=== PATIENT | female | born 1950 | race Caucasian/White ===

== ENCOUNTER → 2017-05-31 | Outpatient (CLI) | payer MEDICARE, SELFPAY | PROVIDERS: Visit Provider Nurse Practitioner | DX: C50.912 Malignant neoplasm of unspecified site of left female breast (principal); R07.89 Other chest pain | CPT/HCPCS: 73030; 78306; A9503 ==

== ENCOUNTER → 2017-06-07 | Outpatient (POV) | payer MEDICARE, SELFPAY | PROVIDERS: Family Provider Emergency Medicine; PCP Emergency Medicine; Visit Provider Nurse Practitioner | DX: C50.912 Malignant neoplasm of unspecified site of left female breast (principal); Z17.1 Estrogen receptor negative status [ER-] | CPT/HCPCS: 99214 ==

== ENCOUNTER → 2017-06-15 08:49 | Outpatient (CLI) | payer MEDICARE, SELFPAY ==
--- NOTE | 2017-06-15 09:19 | CT_ITS ---
CT chest w con HISTORY: Right sided chest and rib pain. History of breast cancer ITS.REASON: CHEST, RIB AND BREAST PAIN; ORDERING PHYSICIAN: Huyen Jones PATIENT AGE: 66 years TECHNIQUE: Helical acquisition obtained following the bolus administration of 75 mL of Isovue 370 . Axial, sagittal, and coronal reformatted images are generated and reviewed. Three-D reformatted images are also obtained of the ribs and thoracic spine. COMPARISON: 10/13/2015 FINDINGS: No mediastinal or hilar mass or adenopathy. Coronary artery calcifications are present. Normal heart size without evidence of pericardial effusion. No suspicious nodules, central obstructing lesions, infiltrates, or effusions are evident. No evidence of aortic aneurysm or central pulmonary embolus. No destructive bony lesions. There are degenerative changes in the thoracic spine with osteophytosis.. No rib fractures or other acute anomalies of the bony structures. There is some mild skin thickening of the left breast similar to the previous exam IMPRESSION: 1. Essentially negative CT chest with contrast. 2. No acute bony anomalies. No obvious rib fracture or destructive bony lesions. 3. Coronary artery calcifications suggesting coronary artery disease
[2017-06-15 09:23] LABS: Blood Urea Nitrogen 17 mg/dL (7-18); Creatinine,Serum 1.08 mg/dL (0.55-1.02); Estimated Glomerular Filt Rate 51 ml/min (>60); GFR (African American) > 60 ML/MIN (>60)
== END ==
PROVIDERS: Family Provider Emergency Medicine; PCP Family Medicine; Visit Provider Nurse Practitioner
DX: R07.9 Chest pain, unspecified (principal); N64.4 Mastodynia; C50.912 Malignant neoplasm of unspecified site of left female breast; R07.89 Other chest pain
CPT/HCPCS: 36415; 71260; 82565; 84520; Q9967

== ENCOUNTER → 2017-07-25 14:31 | Outpatient (CLI) | payer MEDICARE, SELFPAY ==
--- NOTE | 2017-07-25 14:39 | XR_ITS ---
XR chest 2V HISTORY: Cough and congestion ITS.REASON: BRONCHOPNEUMONIA ORDERING PHYSICIAN: Nola Fay PATIENT AGE: 66 years COMPARISON: 11 14 13 FINDINGS: The cardiomediastinal silhouette and pulmonary vascularity are within normal limits. The lungs are clear without infiltrates, suspicious nodules, or pleural effusions. Mediport catheter is been removed No acute bony abnormalities. IMPRESSION: Negative chest, no acute finding
== END ==
PROVIDERS: PCP Nurse Practitioner Family; Visit Provider Nurse Practitioner Family
DX: J18.0 Bronchopneumonia, unspecified organism (principal)
CPT/HCPCS: 71046

== ENCOUNTER → 2017-10-26 11:10 | Outpatient (CLI) | payer MEDICARE, SELFPAY ==
[2017-10-26 11:41] LABS: Basophils # 0.1 K/mm3 (0-0.2); Basophils % 0.7 % (0.1-2.0); Eosinophils # 0.1 K/mm3 (0.0-0.4); Eosinophils % 0.8 % (0.1-12.0); Hemoglobin 12.8 g/dL (12.2-16.2); Lymphocytes % 28.7 K/mm3 (10-50); Mean Corpuscular HGB Conc 33.6 g/dL (31.8-35.4); Mean Corpuscular Hemoglobin 28.9 pg (27.0-31.2); Mean Corpuscular Volume 86.1 fl (81-99); Monocytes # 0.4 K/mm3 (0.1-1.0); Monocytes % 5.4 % (1.7-9.3); Neutrophils # 4.4 K/mm3 (1.8-7.8); Neutrophils % 64.4 % (37.0-80.0); Platelet Count 363 K/mm3 (142-424); Red Blood Count 4.41 M/mm3 (4.20-5.40); Red Cell Distribution Width 12.9 % (11.5-17.5); White Blood Count 6.8 K/mm3 (4.8-10.8)
[2017-10-26 13:10] LABS: Anion Gap 12.9 mEq/L (5-15); Blood Urea Nitrogen 15 mg/dL (7-18); Carbon Dioxide 30 mmol/L (21.0-32.0); Chloride 98 mmol/L (98-107); Estimated Glomerular Filt Rate 62 ml/min (>60); GFR (African American) 76 ML/MIN (>60); Glucose 126 mg/dL (74-106); Potassium 4.9 mmoL/L (3.5-5.1); Sodium 136 mmol/L (136-145)
== END ==
PROVIDERS: Visit Provider Orthopaedic Surgery
DX: M79.645 Pain in left finger(s) (principal); Z01.818 Encounter for other preprocedural examination
CPT/HCPCS: 36415; 80048; 85025

== ENCOUNTER → 2017-11-13 09:22 | Outpatient (CLI) | payer MEDICARE, SELFPAY ==
--- NOTE | 2017-11-13 09:24 | MM_ITS ---
MM Dig screening mamm BI w/CAD CAD Screening ORDERING PHYSICIAN : Huyen Jones PATIENT AGE: 67 years GENDER: Female HISTORY no hormones no new complaints. Previous radiation & lumpectomy for malignant lesion. The left breast COMPARISON: Previous digital mammograms: October 2016, 2015, 2014. TECHNIQUE: Standard CC and MLO images were obtained. R2 CAD reviewed. FINDINGS: Generalized fatty replacement with Low-density breast bilaterally. No dominant mass nor suspicious calcifications in either breast. CAD computer review highlights no areas of significant concern. RIGHT BREAST:No findings of significant concern. Follow-up one year LEFT BREAST:Very subtle architectural changes at lateral left breast, towards upper-outer quadrant-likely reflecting surgery and treatment. No new findings of concern IMPRESSION: ---- Stable bilateral mammogram No new areas of significant concern Follow-up in one year BI-RADS Category: 1 Negative RECOMMENDED FOLLOW-UP: 1YR - 1 YEAR FOLLOW-UP (A letter has been sent to the patient regarding results of the study.)
[2017-11-13 10:17] LABS: Basophils % 0.3 % (0.1-2.0); Eosinophils # 0.1 K/mm3 (0.0-0.4); Eosinophils % 0.8 % (0.1-12.0); Hematocrit 38.5 % (37.0-47.0); Hemoglobin 12.1 g/dL (12.2-16.2); Lymphocytes # 1.5 K/mm3 (0.7-4.5); Lymphocytes % 21.5 K/mm3 (10-50); Mean Corpuscular HGB Conc 31.3 g/dL (31.8-35.4); Mean Corpuscular Hemoglobin 27.4 pg (27.0-31.2); Mean Corpuscular Volume 87.6 fl (81-99); Mean Platelet Volume 7.2 fl (7.4-10.4); Monocytes # 0.3 K/mm3 (0.1-1.0); Monocytes % 4.6 % (1.7-9.3); Neutrophils # 5.2 K/mm3 (1.8-7.8); Neutrophils % 72.7 % (37.0-80.0); Platelet Count 339 K/mm3 (142-424); Red Blood Count 4.39 M/mm3 (4.20-5.40); Red Cell Distribution Width 13.1 % (11.5-17.5); White Blood Count 7.2 K/mm3 (4.8-10.8)
[2017-11-13 10:41] LABS: Alanine Aminotransferase 22 U/L (12-78); Albumin Level 3.6 gm/dL (3.4-5.0); Albumin/Globulin Ratio 1.1 (1.1-1.8); Alkaline Phosphatase 79 U/L (46-116); Anion Gap 14.4 mEq/L (5-15); Aspartate Amino Transferase 17 U/L (15-37); Bilirubin,Total 0.4 mg/dL (0.2-1.0); Blood Urea Nitrogen 16 mg/dL (7-18); Calcium 9.2 mg/dL (8.5-10.1); Carbon Dioxide 26 mmol/L (21.0-32.0); Chloride 99 mmol/L (98-107); Estimated Glomerular Filt Rate 50 ml/min (>60); GFR (African American) 60 ML/MIN (>60); Globulin 3.3 gm/dl (1.3-3.2); Glucose 195 mg/dL (74-106); Potassium 4.4 mmoL/L (3.5-5.1); Sodium 135 mmol/L (136-145); Total Protein,Serum 6.9 gm/dL (6.4-8.2)
== END ==
PROVIDERS: Family Provider Emergency Medicine; PCP Nurse Practitioner Family; Visit Provider Nurse Practitioner
DX: Z12.31 Encounter for screening mammogram for malignant neoplasm of breast (principal); Z79.899 Other long term (current) drug therapy
CPT/HCPCS: 36415; 77067; 80053; 85025

== ENCOUNTER → 2017-11-22 11:22 | Outpatient (CLI) | payer MEDICARE, SELFPAY ==
[2017-11-22 13:43] LABS: Ferritin 72 ng/mL (8-388)
[2017-11-23 08:37] LABS: Iron 48 ug/dL (27-139); UIBC 284 ug/dL (118-369)
[2017-11-24 13:33] LABS: Iron Saturation 14 % (15-55)
== END ==
PROVIDERS: Visit Provider Nurse Practitioner
DX: C50.912 Malignant neoplasm of unspecified site of left female breast (principal); D64.9 Anemia, unspecified; R53.83 Other fatigue
CPT/HCPCS: 36415; 82728; 83550

== ENCOUNTER → 2017-12-10 09:00 | Outpatient (CLI) | payer MEDICARE, SELFPAY ==
[2017-12-12 14:12] LABS: Occult Blood,Stool Negative (Negative)
== END ==
PROVIDERS: Visit Provider Nurse Practitioner
DX: D50.9 Iron deficiency anemia, unspecified (principal); C50.912 Malignant neoplasm of unspecified site of left female breast
CPT/HCPCS: 82272; G0328

== ENCOUNTER → 2017-12-11 09:00 | Outpatient (CLI) | payer MEDICARE, SELFPAY ==
[2017-12-12 14:14] LABS: Occult Blood,Stool Negative (Negative)
== END ==
PROVIDERS: Visit Provider Nurse Practitioner
DX: D64.9 Anemia, unspecified (principal)
CPT/HCPCS: 82272; G0328

== ENCOUNTER → 2017-12-12 13:02 | Outpatient (CLI) | payer MEDICARE, SELFPAY ==
[2017-12-12 14:13] LABS: Occult Blood,Stool Negative (Negative)
== END ==
PROVIDERS: Visit Provider Nurse Practitioner
DX: D64.9 Anemia, unspecified (principal); D50.9 Iron deficiency anemia, unspecified
CPT/HCPCS: 82272; G0328

== ENCOUNTER 2018-02-05 20:01 | Observation (INO) ==
[2018-02-05 20:32] LABS: Basophils % 0.5 % (0.1-2.0); Eosinophils # 0.1 K/mm3 (0.0-0.4); Eosinophils % 1.5 % (0.1-12.0); Hematocrit 38.2 % (37.0-47.0); Hemoglobin 12.7 g/dL (12.2-16.2); Lymphocytes # 2.4 K/mm3 (0.7-4.5); Lymphocytes % 36.9 K/mm3 (10-50); Mean Corpuscular HGB Conc 33.3 g/dL (31.8-35.4); Mean Corpuscular Hemoglobin 28.1 pg (27.0-31.2); Mean Corpuscular Volume 84.5 fl (81-99); Mean Platelet Volume 6.9 fl (7.4-10.4); Monocytes # 0.4 K/mm3 (0.1-1.0); Monocytes % 6.2 % (1.7-9.3); Neutrophils # 3.5 K/mm3 (1.8-7.8); Platelet Count 354 K/mm3 (142-424); Red Blood Count 4.51 M/mm3 (4.20-5.40); White Blood Count 6.4 K/mm3 (4.8-10.8)
[2018-02-05 20:55] LABS: Blood Urea Nitrogen 14 mg/dL (7-18); Calcium 9.7 mg/dL (8.5-10.1); Carbon Dioxide 28 mmol/L (21.0-32.0); Chloride 100 mmol/L (98-107); Glucose 211 mg/dL (74-106); Sodium 137 mmol/L (136-145)
--- NOTE | 2018-02-05 21:47 | Emergency Department Note ---
ED Disposition Clinical Impression: Chest pain Qualifiers: Chest pain type: precordial pain Qualified Code(s): R07.2 - Precordial pain Diabetes Qualifiers: Diabetes mellitus type: type 1 Diabetes mellitus complication status: with unspecified complications Qualified Code(s): E10.8 - Type 1 diabetes mellitus with unspecified complications Disposition: Admitted as Observation Condition on Discharge: Good - Critical Care Critical Care Time: No Attestation: On 02/05/18, the high probability of a clinically significant, sudden or life threatening deterioration of the following system(s) required my full and direct attention, intervention and personal management. The time I documented below is in addition to time spent performing reported procedures but includes the following listed in this critical care notation. Medical Decision Making - Medical Records Medical records reviewed: Yes: I reviewed the patient's medical records. - Mitch Inquiry Pt receiving controlled substance: No Vital Signs: 02/05/18 20:01 02/05/18 20:42 02/05/18 21:18 Temperature 98.5 F 98.5 F 98.3 F Temperature Source Oral Oral Oral Pulse Rate [Right Brachial] 89 87 82 Respiratory Rate 16 18 18 Blood Pressure [Right Arm] 163/91 157/76 151/83 Blood Pressure Mean [Right Arm] 115 103 105 Blood Pressure Source [Right Arm] Automatic Cuff Automatic Cuff Blood Pressure Position [Right Arm] Sitting Sitting 02 Sat by Pulse Oximetry 99 98 98 Oxygen Delivery Method Room Air Room Air 02/05/18 21:55 02/05/18 22:27 Temperature Temperature Source Pulse Rate [Right Brachial] 91 H 75 Respiratory Rate 16 16 Blood Pressure [Right Arm] 154/75 180/75 Blood Pressure Mean [Right Arm] 101 110 Blood Pressure Source [Right Arm] Automatic Cuff Automatic Cuff Blood Pressure Position [Right Arm] Sitting Sitting 02 Sat by Pulse Oximetry 95 98 Oxygen Delivery Method Room Air Room Air - Lab Data Lab results reviewed: Yes: I reviewed the patient's lab results. Lab Results 02/05/18 20:20: WBC 6.4, RBC 4.51, Hgb 12.7, Hct 38.2, MCV 84.5, MCH 28.1, MCHC 33.3, RDW 13.0, Plt Count 354, MPV 6.9 L, Neut % (Auto) 55.0, Lymph % (Auto) 36.9, [place] % (Auto) 6.2, Eos % (Auto) 1.5, Baso % (Auto) 0.5, Neut # (Auto) 3.5 , Lymph # (Auto) 2.4, [place] # (Auto) 0.4, Eos # (Auto) 0.1, Baso # (Auto) 0.0 02/05/18 20:20: Sodium 137, Potassium 4.0, Chloride 100, Carbon Dioxide 28, Anion Gap 13.0, BUN 14, Creatinine 1.23 H, Estimated Creat Clear 62, Estimated GFR 44 L, Est GFR ( Amer) 53 L, Glucose 211 H, Calcium 9.7, Troponin I < 0.02 02/05/18 20:20: Amylase 49, Lipase 154 Result diagrams: 02/05/18 20:20 02/05/18 20:20 Orders (Tests/Meds): ED MEDICATIONS Generic Name Dose Route Start Last Admin Trade Name Freq PRN Reason Stop Dose Admin Nitroglycerin 0.4 mg 02/05/18 21:43 02/05/18 21:43 Nitrostat 0.4mg Sl Tablet SL 03/07/18 21:42 1 tab Q5MINP PRN Administration Chest Pain Discontinued Medications Generic Name Dose Route Start Last Admin Trade Name Freq PRN Reason Stop Dose Admin Aspirin 325 mg 02/05/18 20:19 02/05/18 20:23 Aspirin 325mg Tablet PO 02/05/18 20:20 325 mg ONCE ONE Administration Morphine Sulfate 4 mg 02/05/18 21:56 02/05/18 21:59 Morphine 4mg/Ml Syringe IV 02/05/18 21:57 4 mg ONCE ONE Administration Nitroglycerin 1 gm 02/05/18 21:56 02/05/18 21:59 Nitroglycerin 1 Inch Oint Udp TD 02/05/18 21:57 1 gm ONCE ONE Administration Ondansetron HCl 4 mg 02/05/18 21:56 02/05/18 22:00 Zofran 4mg/2ml Vial IV 02/05/18 21:57 4 mg ONCE ONE Administration ORDERS Category Date Time Status Troponin I Timed Lab 02/05/18 23:00 Ordered - Radiology Data #1 Image(s): Chest Image Reviewed: Yes I reviewed the patient's radiology image Preliminary Findings: Normal/NAD - ECG Data Tracing #1 I reviewed this ECG and interpreted as documented below: Normal Sinus Rhythm: Yes Ischemic changes: non-specific ST-T wave changes Tracing #2 Normal Sinus Rhythm: Yes Ischemic changes: non-specific ST-T wave changes - Physician Consults Physician Consulted: ketty Reason -: Admission Chest Pain HPI - General Chief Complaint: Chest Pain Stated Complaint: CHEST PAIN Time Seen by Provider: 02/05/18 20:15 Mode of Arrival: Ambulatory Limitations: No Limitations Description of Symptoms (Recalled from ER Triage Doc. by RN): CHEST PAIN THAT STARTED OFF AND ON FOR A WEEK PROGESSIVELY WORSENING TODAY - History of Present Illness HPI narrative: pt with episode of chest pain with rad to back and upper ext this pm about 1530 - has persisted - no known ht disease MD complaint: chest pain indicative of cardiac Onset (ago): hour(s) Duration: intermittent Activity at onset: light activity Pain location: substernal Severity: moderate Quality: tightness Pain radiation: RUE, LUE, back Risk Factors for CAD: Hypertension, Family Hx of CAD, Diabetes Treatments prior to or on arrival for Cardiac Chest Pain: none - WILFRIDO Score Non-Stemi Age of patient: 65 yrs or more Number of risk factors for CAD: Presence of 3 or more Prior coronary artery stenosis(seen in coronary angiography): Less than 50% ST-Segment deviation on ECG (more than 1 min): Absent Prior aspirin intake: No ASA in the last 7 days Severe anginal chest pain: Two or more episodes in last 24 hours Elevated cardiac markers(CK-MB or troponin): Absent Non-Stemi Risk Score: 3 - Related Data Home Medications Medication Instructions Recorded Confirmed escitalopram 20 mg tablet 10 mg PO DAILY 06/21/17 02/05/18 etodolac 300 mg capsule 300 mg PO BID 06/21/17 02/05/18 insulin human U-100 NPH-regulr 25 unit SUB-Q DAILY 06/21/17 02/05/18 70-30 mix 100 unit/mL subcutaneous susp omeprazole 20 mg capsule,delayed 20 mg PO DAILY 06/21/17 02/05/18 release sitagliptin 50 mg-metformin 1,000 1 tab PO BID 06/21/17 02/05/18 mg tablet tizanidine 4 mg capsule 4 mg PO Q8H 06/21/17 02/05/18 amlodipine 5 mg-benazepril 20 mg 1 cap PO DAILY 90 Days cap 11/22/17 02/05/18 capsule aspirin 81 mg tablet,delayed 81 mg PO DAILY 11/22/17 02/05/18 release ezetimibe 10 mg tablet 10 mg PO DAILY 90 Days tab 11/22/17 02/05/18 fluticasone 50 mcg/actuation nasal 1 puff INTRANASAL DAILY 60 Days 11/22/17 spray,suspension rosuvastatin 10 mg tablet 10 mg PO DAILY 11/22/17 02/05/18 tizanidine 4 mg tablet 4 mg PO Q8H 30 Days tab 11/22/17 02/05/18 Milnacipran HCl [Savella] 50 mg PO BID 02/05/18 02/05/18 Allergies Allergy/AdvReac Type Severity Reaction Status Date / Time Penicillins Allergy Intermediate I-RASH Verified 12/27/17 09:58 [facility] History I have reviewed the patient's past medical history: Yes Medical History: Reports:: Anxiety, Cancer (left breast), Diabetes Mellitus Type 2, Hypertension, Osteoporosis Denies:: MRSA Other Medical History: Reports: Chemotherapy, Fibromyalgia, Osteoporosis, Radiation Therapy Laterality Cases: Left: Breast Biopsy, Lumpectomy Other Surgeries: Yes: Cancer Surgery, Colonoscopy, Hysterectomy-Total, Tubal Ligation Amputation: No Fractures: No Comment: Finger release (x1 LT hand & x2 RT hand) - Social History Educational Level: Completed Grade School Smoking Status: Never smoker Alcohol Intake: never Substance Use Type: denies use Occupational Status: retired Housing: house Household Members: spouse - Psychiatric History Expresses thoughts of harming self/others: None Suicide Plan Description: No Plan Pschychiatric History:: Reports:: Anxiety Family Hx:: Heart Attack, Hypertension, Cancer, Diabetes, Stroke ROS Obtained: Yes All systems reviewed & no additional complaints - Constitutional Constitutional: Denies fever(s) - Eyes Eyes: Denies change in vision - ENT Ears, Nose, Mouth, and Throat: Denies sore throat - Cardiovascular Cardiovascular: Reports chest pain, Denies dyspnea - Respiratory Respiratory: No cough - Gastrointestinal Gastrointestingal: Denies: abdominal pain - Genitourinary Female Genitourinary: Denies hematuria - Musculoskeletal Musculoskeletal: Denies joint pain, Denies joint swelling - Integumentary/Breasts Skin/Breast: Denies rash - Neurologic Neurologic: Denies seizure-like activity Physical Exam - General General appearance: alert, obese - Head Head exam: normocephalic - Eye Eye exam: Present: PERRL, EOMI - ENT ENT exam: Present: mucous membranes moist - Neck Neck exam: Present: trachea midline - Respiratory Respiratory exam: Present: normal lung sounds bilaterally. Absent: respiratory distress - Cardiovascular Cardiovascular exam: Present: regular rate, systolic murmur, +S4 - Abdominal Exam Abdominal exam: Present: soft - Extremities Exam Extremities exam: Absent: calf tenderness - Neurological Exam Neurological exam: Present: alert, oriented X3, CN II-XII intact - Psychiatric Psychiatric exam: Present: normal affect - Skin Skin exam: Absent: rash
[2018-02-05 22:09] LABS: Amylase 49 U/L (25-125); Lipase 154 u/L (73-393)
[2018-02-06 06:00] LABS: Basophils % 0.5 % (0.1-2.0); Eosinophils # 0.1 K/mm3 (0.0-0.4); Hematocrit 37.2 % (37.0-47.0); Hemoglobin 12.6 g/dL (12.2-16.2); Lymphocytes # 3.2 K/mm3 (0.7-4.5); Lymphocytes % 38.1 K/mm3 (10-50); Mean Corpuscular HGB Conc 33.8 g/dL (31.8-35.4); Mean Corpuscular Hemoglobin 29.2 pg (27.0-31.2); Mean Corpuscular Volume 86.4 fl (81-99); Monocytes # 0.5 K/mm3 (0.1-1.0); Monocytes % 5.9 % (1.7-9.3); Neutrophils # 4.5 K/mm3 (1.8-7.8); Neutrophils % 54.5 % (37.0-80.0); Platelet Count 357 K/mm3 (142-424); Red Blood Count 4.31 M/mm3 (4.20-5.40); Red Cell Distribution Width 13.2 % (11.5-17.5); White Blood Count 8.3 K/mm3 (4.8-10.8)
[2018-02-06 06:13] LABS: Anion Gap 14.1 mEq/L (5-15); Calcium 9.4 mg/dL (8.5-10.1); Potassium 4.1 mmoL/L (3.5-5.1)
--- NOTE | 2018-02-06 07:02 | History & Physical Report ---
*Admission Date: 02/05/18 *Chief complaint: Chest heaviness *History of present illness: 67-year-old female with hypertension, diabetes, hyperlipidemia presented to the emergency department yesterday evening after onset of chest heaviness radiating into the arms with associated nausea and fatigue that started at around 3 PM. This was approximately 3 hours after the patient's last meal. When symptoms were not resolving on their own after a few hours patient ultimately presented to the emergency department. Sublingual nitroglycerin did not relieve the patient's chest heaviness but topical nitroglycerin eased some of the chest heaviness. Patient states she continued to have chest heaviness in the emergency department as well as throughout the night and even currently during interview this morning. She also continues to have generalized weakness. She denies shortness of breath or diaphoresis during her episode of chest heaviness. Patient reports a one-week history of recurrent bouts of nausea and heartburn that she thought was getting better. She has not had any previous cardiac workup. [facility] History I have reviewed the patient's past medical history: Yes Medical History: Reports:: Anxiety, Cancer (Breast CA), Diabetes Mellitus Type 2 , Hyperlipidemia, Hypertension, Osteoporosis Denies:: MRSA Other Medical History: Reports: Chemotherapy, Fibromyalgia, Osteoporosis, Radiation Therapy Laterality Cases: Left: Breast Biopsy, Lumpectomy Other Surgeries: Yes: Cancer Surgery, Colonoscopy, Hysterectomy-Total, Tubal Ligation Amputation: No Fractures: No - *Social History Educational Level: Completed College Smoking Status: Never smoker Alcohol Intake: never Substance Use Type: denies use Occupational Status: retired Housing: house Household Members: spouse - Psychiatric History Expresses thoughts of harming self/others: None Suicide Plan Description: No Plan Pschychiatric History:: Reports:: Anxiety *Family Hx:: Cancer, Coronary Artery Disease, Diabetes, Heart Attack, Hypertension, Stroke Review of Systems - Review of Systems Review of systems:: pertinent systems reviewed and negative unless documented below - Constitutional Reports fatigue, Denies body ache(s), Denies chills - *Cardiovascular Reports chest pain, Denies chest pain with activity, Denies excessive sweating, Denies shortness of breath, Denies irregular heart rhythm - *Respiratory Denies cough, Denies shortness of breath - *Gastrointestinal Reports heartburn, Reports nausea - *Neurologic Denies seizure-like activity Meds Home Medications Medication Instructions Recorded Confirmed Type escitalopram 20 mg tablet 10 mg PO DAILY 06/21/17 02/05/18 History etodolac 300 mg capsule 300 mg PO BID 06/21/17 02/05/18 History insulin human U-100 NPH-regulr 30 unit SUB-Q DAILY 06/21/17 02/05/18 History 70-30 mix 100 unit/mL subcutaneous susp omeprazole 20 mg capsule,delayed 20 mg PO DAILY 06/21/17 02/05/18 History release sitagliptin 50 mg-metformin 1,000 1 tab PO BID 06/21/17 02/05/18 History mg tablet tizanidine 4 mg capsule 4 mg PO Q8H 06/21/17 02/05/18 History amlodipine 5 mg-benazepril 20 mg 1 cap PO DAILY 90 Days cap 11/22/17 02/05/18 History capsule aspirin 81 mg tablet,delayed 81 mg PO DAILY 11/22/17 02/05/18 History release ezetimibe 10 mg tablet 10 mg PO DAILY 90 Days tab 11/22/17 02/05/18 History fluticasone 50 mcg/actuation nasal 1 puff INTRANASAL DAILY 60 Days 11/22/17 History spray,suspension tizanidine 4 mg tablet 4 mg PO Q8H 30 Days tab 11/22/17 02/05/18 History Rahat Cit/D3/K/Mag Ox/Stron/Bor 2 each PO DAILY 02/05/18 02/05/18 History [Prosteon Tablet] Milnacipran HCl [Savella] 50 mg PO BID 02/05/18 02/05/18 History Allergies Allergy/AdvReac Type Severity Reaction Status Date / Time Penicillins Allergy Intermediate I-RASH Verified 12/27/17 09:58 Exam Vital signs and Labs for Last 24 Hours: Temp Pulse Resp BP Pulse Ox 98.1 F 88 16 126/59 96 02/05/18 23:30 02/06/18 04:00 02/05/18 23:30 02/06/18 04:00 02/06/18 04:01 Laboratory Results - last 24 hr 02/05/18 20:20: WBC 6.4, RBC 4.51, Hgb 12.7, Hct 38.2, MCV 84.5, MCH 28.1, MCHC 33.3, RDW 13.0, Plt Count 354, MPV 6.9 L, Neut % (Auto) 55.0, Lymph % (Auto) 36.9, [place] % (Auto) 6.2, Eos % (Auto) 1.5, Baso % (Auto) 0.5, Neut # (Auto) 3.5 , Lymph # (Auto) 2.4, [place] # (Auto) 0.4, Eos # (Auto) 0.1, Baso # (Auto) 0.0 02/05/18 20:20: Sodium 137, Potassium 4.0, Chloride 100, Carbon Dioxide 28, Anion Gap 13.0, BUN 14, Creatinine 1.23 H, Estimated Creat Clear 62, Estimated GFR 44 L, Est GFR ( Amer) 53 L, Glucose 211 H, Calcium 9.7, Troponin I < 0.02 02/05/18 20:20: Amylase 49, Lipase 154 02/05/18 22:56: Troponin I < 0.02 02/06/18 02:15: Troponin I < 0.02 02/06/18 05:15: Troponin I < 0.02 02/06/18 05:15: WBC 8.3 D, RBC 4.31, Hgb 12.6, Hct 37.2, MCV 86.4, MCH 29.2, MCHC 33.8, RDW 13.2, Plt Count 357, MPV 7.0 L, Neut % (Auto) 54.5, Lymph % (Auto ) 38.1, [place] % (Auto) 5.9, Eos % (Auto) 1.0, Baso % (Auto) 0.5, Neut # (Auto) 4.5, Lymph # (Auto) 3.2, [place] # (Auto) 0.5, Eos # (Auto) 0.1, Baso # (Auto) 0.0 02/06/18 05:15: Sodium 141, Potassium 4.1, Chloride 103, Carbon Dioxide 28, Anion Gap 14.1, BUN 13, Creatinine 1.21 H, Estimated Creat Clear 52, Estimated GFR 44 L, Est GFR ( Amer) 54 L, Glucose 67 L D, Calcium 9.4, Magnesium 1.9, Triglycerides 150, Cholesterol 183, LDL Cholesterol 91, VLDL Cholesterol 30 , HDL Cholesterol 62, Cholesterol/HDL Ratio 3.0 02/06/18 05:25: POC Glucose 66 L I & O for Last 24 hours: Intake & Output 02/03/18 02/04/18 02/05/18 02/06/18 11:59 11:59 11:59 11:59 Intake Total 444 / 444 Balance 444 / 444 Weight 161 lb 3 oz Narrative: Patient is awake and alert. She is oriented to person place and time. Oropharynx is moist neck is without lymphadenopathy. Lungs are clear to auscultation. Heart has a regular rate and rhythm. Abdomen is soft and nontender with active bowel sounds. Patient has active range of motion in all extremities. Neurologically there is no motor or sensory deficit. Skin is without rashes Assessment and Plan (1) Hypertension Current visit: Yes Status: Acute Category: Medical Code(s): I10 - Essential (primary) hypertension (2) Hypercholesterolemia Current visit: Yes Status: Acute Category: Medical Code(s): E78.00 - Pure hypercholesterolemia, unspecified (3) Chest pain Current visit: Yes Status: Acute Qualifiers: Chest pain type: precordial pain Qualified Code(s): R07.2 - Precordial pain Category: Medical Code(s): R07.9 - Chest pain, unspecified (4) Diabetes Current visit: Yes Status: Acute Qualifiers: Diabetes mellitus type: type 1 Diabetes mellitus complication status: with unspecified complications Qualified Code(s): E10.8 - Type 1 diabetes mellitus with unspecified complications Category: Medical Code(s): E11.9 - Type 2 diabetes mellitus without complications - Assessment and plan all Dx Assessment and Plan for all problems:: Patient has chest pain consistent with angina along with multiple cardiac risk factors. Cardiology has been consulted for recommendations and intervention.
--- NOTE | 2018-02-06 07:41 | Pharmacy Consult Notes ---
[facility] Pharmacy VTE Monitoring - Patient Demographics Admission date: 02/05/18 Report Date: 02/06/18 Time: 07:40 Allergies/Adverse Reactions: Patient Allergies Penicillins Allergy (Intermediate, Verified 12/27/17 09:58) I-RASH Height: 1.63 m Weight: 73.113 kg Patient Problems: Current Active Problems Chest pain (Acute) Diabetes (Acute) Hypertension (Acute) Hypercholesterolemia (Acute) - VTE Risk Labs: VTE Related Lab Results Hgb 12.6 g/dL (12.2-16.2) 02/06/18 05:15 Hct 37.2 % (37.0-47.0) 02/06/18 05:15 Plt Count 357 K/mm3 (142-424) 02/06/18 05:15 BUN 13 mg/dL (7-18) 02/06/18 05:15 Creatinine 1.21 mg/dL (0.55-1.02) H 02/06/18 05:15 Estimated Creat Clear 52 mL/min (0-300) 02/06/18 05:15 Was VTE Risk Assessment Performed: Yes VTE Score: 6 VTE Risk Level: Moderate Risk - Prophylaxis VTE Prophylaxis Ordered?: Yes Types of VTE Prophylaxis: TEDS Knee High Location of Applied Device: Bilateral Lower Extremeties - VTE Diagnosis Confirmed Treatment or plan recommended: Continue Current Treatment
--- NOTE | 2018-02-06 09:55 | Consult Report ---
History of Present Illness Consult date: 02/06/18 Requesting physician: Maxx Matos Consult reason: chest pain Chief complaint: chest pain, SOA Additional Medical History:: 1. History of breast cancer A. Status post left breast lumpectomy with lymph node removal, s/p chemotherapy X 4 treatments and radiation therapy X 15 treatments approximately 2013 2. Diabetes mellitus, treated for about 20 years with most recent hemoglobin A1c of 6.8 3. Hypertension 4. Hyperlipidemia History of present illness: 67-year-old female with hypertension, diabetes, hyperlipidemia presented to the emergency department yesterday evening after onset of chest heaviness radiating into the arms with associated nausea and fatigue that started at around 3 PM. This was approximately 3 hours after the patient's last meal. When symptoms were not resolving on their own after a few hours patient ultimately presented to the emergency department. Sublingual nitroglycerin did not relieve the patient's chest heaviness but topical nitroglycerin eased some of the chest heaviness. Patient states she continued to have chest heaviness in the emergency department as well as throughout the night and even currently during interview this morning. She also continues to have generalized weakness. She denies shortness of breath or diaphoresis during her episode of chest heaviness. Patient reports a one-week history of recurrent bouts of nausea and heartburn that she thought was getting better. She has not had any previous cardiac workup. The above per Dr. Matos At the time of my exam the patient denies any chest squeezing or tightness but does note an occasional pain in the substernal area which is mildly reproducible with palpation. She also relates some back discomfort that is worse with breathing. EKG shows sinus rhythm without acute ST segment changes. Troponins normal 3. [facility] History Medical History: Reports:: Anxiety, Cancer (Breast CA), Diabetes Mellitus Type 2, Hyperlipidemia, Hypertension, Osteoporosis Denies:: MRSA Other Medical History: Reports: Chemotherapy, Fibromyalgia, Osteoporosis, Radiation Therapy Laterality Cases: Left: Breast Biopsy, Lumpectomy Other Surgeries: Yes: Cancer Surgery, Colonoscopy, Hysterectomy-Total, Tubal Ligation Amputation: No Fractures: No - *Social History Educational Level: Completed College Smoking Status: Never smoker Alcohol Intake: never Substance Use Type: denies use Occupational Status: retired Housing: house Household Members: spouse - Psychiatric History Expresses thoughts of harming self/others: None Suicide Plan Description: No Plan Pschychiatric History:: Reports:: Anxiety *Family Hx:: Cancer, Coronary Artery Disease, Diabetes, Heart Attack, Hypertension, Stroke Meds Home Medications Medication Instructions Recorded Confirmed Type escitalopram 20 mg tablet 20 mg PO DAILY 06/21/17 02/06/18 History etodolac 300 mg capsule 300 mg PO BID 06/21/17 02/05/18 History insulin human U-100 NPH-regulr 30 unit SUB-Q DAILY 06/21/17 02/05/18 History 70-30 mix 100 unit/mL subcutaneous susp omeprazole 20 mg capsule,delayed 20 mg PO DAILY 06/21/17 02/05/18 History release sitagliptin 50 mg-metformin 1,000 1 tab PO BID 06/21/17 02/05/18 History mg tablet tizanidine 4 mg capsule 4 mg PO TID 06/21/17 02/06/18 History amlodipine 5 mg-benazepril 20 mg 1 cap PO DAILY 90 Days cap 11/22/17 02/05/18 History capsule aspirin 81 mg tablet,delayed 81 mg PO DAILY 11/22/17 02/05/18 History release ezetimibe 10 mg tablet 10 mg PO DAILY 90 Days tab 11/22/17 02/05/18 History fluticasone 50 mcg/actuation nasal 1 puff INTRANASAL DAILY 60 Days 11/22/17 02/05/18 History spray,suspension tizanidine 4 mg tablet 4 mg PO Q8H 30 Days tab 11/22/17 02/05/18 History Rahat Cit/D3/K/Mag Ox/Stron/Bor 2 each PO DAILY 02/05/18 02/05/18 History [Prosteon Tablet] Milnacipran HCl [Savella] 50 mg PO BID 02/05/18 02/05/18 History Allergies Allergy/AdvReac Type Severity Reaction Status Date / Time Penicillins Allergy Intermediate I-RASH Verified 12/27/17 09:58 Review of Systems - *Cardiovascular Reports chest pain, Reports shortness of breath with activity - *Respiratory Reports shortness of breath with activity - *Gastrointestinal Denies abdominal pain - *Genitourinary Denies blood in urine - *Musculoskeletal Denies joint pain - *Neurologic Denies seizure-like activity Exam Vital signs and Labs for Last 24 Hours: Temp Pulse Resp BP Pulse Ox 98.1 F 85 16 126/59 97 02/05/18 23:30 02/06/18 08:00 02/05/18 23:30 02/06/18 04:00 02/06/18 08:00 Laboratory Results - last 24 hr 02/05/18 20:20: WBC 6.4, RBC 4.51, Hgb 12.7, Hct 38.2, MCV 84.5, MCH 28.1, MCHC 33.3, RDW 13.0, Plt Count 354, MPV 6.9 L, Neut % (Auto) 55.0, Lymph % (Auto) 36.9, [place] % (Auto) 6.2, Eos % (Auto) 1.5, Baso % (Auto) 0.5, Neut # (Auto) 3.5, Lymph # (Auto) 2.4, [place] # (Auto) 0.4, Eos # (Auto) 0.1, Baso # (Auto) 0.0 02/05/18 20:20: Sodium 137, Potassium 4.0, Chloride 100, Carbon Dioxide 28, Anion Gap 13.0, BUN 14, Creatinine 1.23 H, Estimated Creat Clear 62, Estimated GFR 44 L, Est GFR ( Amer) 53 L, Glucose 211 H, Calcium 9.7, Troponin I < 0.02 02/05/18 20:20: Amylase 49, Lipase 154 02/05/18 22:56: Troponin I < 0.02 02/06/18 02:15: Troponin I < 0.02 02/06/18 05:15: Troponin I < 0.02 02/06/18 05:15: WBC 8.3 D, RBC 4.31, Hgb 12.6, Hct 37.2, MCV 86.4, MCH 29.2, MCHC 33.8, RDW 13.2, Plt Count 357, MPV 7.0 L, Neut % (Auto) 54.5, Lymph % (Auto) 38.1, [place] % (Auto) 5.9, Eos % (Auto) 1.0, Baso % (Auto) 0.5, Neut # (Auto) 4.5, Lymph # (Auto) 3.2, [place] # (Auto) 0.5, Eos # (Auto) 0.1, Baso # (Auto) 0.0 02/06/18 05:15: Sodium 141, Potassium 4.1, Chloride 103, Carbon Dioxide 28, Anion Gap 14.1, BUN 13, Creatinine 1.21 H, Estimated Creat Clear 52, Estimated GFR 44 L, Est GFR ( Amer) 54 L, Glucose 67 L D, Calcium 9.4, Magnesium 1.9, Triglycerides 150, Cholesterol 183, LDL Cholesterol 91, VLDL Cholesterol 30, HDL Cholesterol 62, Cholesterol/HDL Ratio 3.0 02/06/18 05:25: POC Glucose 66 L I & O for Last 24 hours: Intake & Output 02/03/18 02/04/18 02/05/18 02/06/18 11:59 11:59 11:59 11:59 Intake Total 444 / 444 Balance 444 / 444 Weight 161 lb 3 oz - *Routine Neck Exam Absent: JVD, carotid bruit - *Routine Respiratory Exam Present: CTA bilaterally. Absent: rhonchi, wheezes - *Routine Cardiovascular Exam Present: RRR. Absent: murmur, gallop, rubs - *Routine Abdominal Exam Absent: tenderness - *Routine Extremities Exam Absent: edema - *Routine Neurological Exam Present: alert, oriented X3, moving all extremities Assessment and Plan (1) Chest pain Current visit: Yes Status: Acute Qualifiers: Chest pain type: precordial pain Qualified Code(s): R07.2 - Precordial pain Category: Medical Code(s): R07.9 - Chest pain, unspecified (2) Hypertension Current visit: Yes Status: Acute Category: Medical Code(s): I10 - Essential (primary) hypertension (3) Hypercholesterolemia Current visit: Yes Status: Acute Category: Medical Code(s): E78.00 - Pure hypercholesterolemia, unspecified (4) Diabetes Current visit: Yes Status: Acute Qualifiers: Diabetes mellitus type: type 1 Diabetes mellitus complication status: with unspecified complications Qualified Code(s): E10.8 - Type 1 diabetes mellitus with unspecified complications Category: Medical Code(s): E11.9 - Type 2 diabetes mellitus without complications - Assessment and plan all Dx Assessment and Plan for all problems:: Unstable angina pectoris in a diabetic patient. Patient has a WILFRIDO score of 4 (recurrent chest pain/shortness of breath, daily aspirin use, cardiac risk factors, age). Recommend left heart catheterization for evaluation and further treatment pending those results.
--- NOTE | 2018-02-06 12:56 | Discharge Summary ---
General - General Admission date:: 02/05/18 Discharge date: 02/06/18 HPI HPI: 67-year-old female with hypertension, diabetes, hyperlipidemia presented to the emergency department yesterday evening after onset of chest heaviness radiating into the arms with associated nausea and fatigue that started at around 3 PM. This was approximately 3 hours after the patient's last meal. When symptoms were not resolving on their own after a few hours patient ultimately presented to the emergency department. Sublingual nitroglycerin did not relieve the patient's chest heaviness but topical nitroglycerin eased some of the chest heaviness. Patient states she continued to have chest heaviness in the emergency department as well as throughout the night and even currently during interview this morning. She also continues to have generalized weakness. She denies shortness of breath or diaphoresis during her episode of chest heaviness. Patient reports a one-week history of recurrent bouts of nausea and heartburn that she thought was getting better. She has not had any previous cardiac workup. Hospital Course Hospital Course: Patient was admitted and ruled out for IA with serial EKG and enzymes. Following morning cardiology was consulted due to a high likelihood that the patient had underlying coronary artery disease due to risk factors. Patient underwent cardiac catheterization with results as follows: NGIOGRAPHIC RESULTS: 1. The left main artery normal 2. The left anterior descending artery has proximal 40% stenosis. 3. The ramus intermedius is a very large vessel and has a proximal 30% stenosis 4. The circumflex artery is a large 4 mm vessel co-dominant and normal 5. The right coronary artery is co-dominant yet still a large 3.5 mm vessel giving rise to a large posterior descending artery which has mild 10% stenoses 6. The WANG ventriculogram reveals normal 60% 7. The left ventricular end-diastolic pressure 20 mmHg Patient did not require any intervention. She was discharged home later in the day. She will follow-up in my office in 2 days Objective Vital signs: Temp Pulse Resp BP Pulse Ox 98.1 F 87 16 132/69 92 L 02/05/18 23:30 02/06/18 12:35 02/06/18 12:35 02/06/18 12:35 02/06/18 12:35 Results Labs on day of discharge: Labs from last 24 hours 02/06/18 02/06/18 02/06/18 12:09 05:25 05:15 WBC RBC Hgb Hct MCV MCH MCHC RDW Plt Count MPV Neut % (Auto) Lymph % (Auto) [place] % (Auto) Eos % (Auto) Baso % (Auto) Neut # (Auto) Lymph # (Auto) [place] # (Auto) Eos # (Auto) Baso # (Auto) Activated Clotting Time 279 H* Sodium 141 Potassium 4.1 Chloride 103 Carbon Dioxide 28 Anion Gap 14.1 BUN 13 Creatinine 1.21 H Estimated Creat Clear 52 Estimated GFR 44 L Est GFR ( Amer) 54 L Glucose 67 L D POC Glucose 66 L Calcium 9.4 Magnesium 1.9 Troponin I Triglycerides 150 Cholesterol 183 LDL Cholesterol 91 VLDL Cholesterol 30 HDL Cholesterol 62 Cholesterol/HDL Ratio 3.0 Amylase Lipase 02/06/18 02/06/18 02/06/18 05:15 05:15 02:15 WBC 8.3 D RBC 4.31 Hgb 12.6 Hct 37.2 MCV 86.4 MCH 29.2 MCHC 33.8 RDW 13.2 Plt Count 357 MPV 7.0 L Neut % (Auto) 54.5 Lymph % (Auto) 38.1 [place] % (Auto) 5.9 Eos % (Auto) 1.0 Baso % (Auto) 0.5 Neut # (Auto) 4.5 Lymph # (Auto) 3.2 [place] # (Auto) 0.5 Eos # (Auto) 0.1 Baso # (Auto) 0.0 Activated Clotting Time Sodium Potassium Chloride Carbon Dioxide Anion Gap BUN Creatinine Estimated Creat Clear Estimated GFR Est GFR ( Amer) Glucose POC Glucose Calcium Magnesium Troponin I < 0.02 < 0.02 Triglycerides Cholesterol LDL Cholesterol VLDL Cholesterol HDL Cholesterol Cholesterol/HDL Ratio Amylase Lipase 02/05/18 02/05/18 02/05/18 22:56 20:20 20:20 WBC RBC Hgb Hct MCV MCH MCHC RDW Plt Count MPV Neut % (Auto) Lymph % (Auto) [place] % (Auto) Eos % (Auto) Baso % (Auto) Neut # (Auto) Lymph # (Auto) [place] # (Auto) Eos # (Auto) Baso # (Auto) Activated Clotting Time Sodium 137 Potassium 4.0 Chloride 100 Carbon Dioxide 28 Anion Gap 13.0 BUN 14 Creatinine 1.23 H Estimated Creat Clear 62 Estimated GFR 44 L Est GFR ( Amer) 53 L Glucose 211 H POC Glucose Calcium 9.7 Magnesium Troponin I < 0.02 < 0.02 Triglycerides Cholesterol LDL Cholesterol VLDL Cholesterol HDL Cholesterol Cholesterol/HDL Ratio Amylase 49 Lipase 154 02/05/18 20:20 WBC 6.4 RBC 4.51 Hgb 12.7 Hct 38.2 MCV 84.5 MCH 28.1 MCHC 33.3 RDW 13.0 Plt Count 354 MPV 6.9 L Neut % (Auto) 55.0 Lymph % (Auto) 36.9 [place] % (Auto) 6.2 Eos % (Auto) 1.5 Baso % (Auto) 0.5 Neut # (Auto) 3.5 Lymph # (Auto) 2.4 [place] # (Auto) 0.4 Eos # (Auto) 0.1 Baso # (Auto) 0.0 Activated Clotting Time Sodium Potassium Chloride Carbon Dioxide Anion Gap BUN Creatinine Estimated Creat Clear Estimated GFR Est GFR ( Amer) Glucose POC Glucose Calcium Magnesium Troponin I Triglycerides Cholesterol LDL Cholesterol VLDL Cholesterol HDL Cholesterol Cholesterol/HDL Ratio Amylase Lipase DS: Diagnosis - Discharge Diagnosis (1) Chest pain Status: Acute (2) Hypertension Status: Acute (3) Hypercholesterolemia Status: Acute (4) Diabetes Status: Acute Discharge Plan - Patient Discharge Instructions ACTIVITY: Continue current activity DIET: continue same diet Patient Instructions: DI for Angina - Follow up Plan Follow up with: Mxax Matos MD [Primary Care Provider] - 02/08/18 8:15 am Disposition: Home, Self-Fdc Medications: Home Medications Medication Instructions Recorded Confirmed Type escitalopram 20 mg tablet 20 mg PO DAILY 06/21/17 02/06/18 History etodolac 300 mg capsule 300 mg PO BID 06/21/17 02/05/18 History insulin human U-100 NPH-regulr 30 unit SUB-Q DAILY 06/21/17 02/05/18 History 70-30 mix 100 unit/mL subcutaneous susp omeprazole 20 mg capsule,delayed 20 mg PO DAILY 06/21/17 02/05/18 History release sitagliptin 50 mg-metformin 1,000 2 tab PO HS 06/21/17 02/06/18 History mg tablet tizanidine 4 mg capsule 4 mg PO TID 06/21/17 02/06/18 History amlodipine 5 mg-benazepril 20 mg 1 cap PO DAILY 90 Days cap 11/22/17 02/05/18 History capsule aspirin 81 mg tablet,delayed 81 mg PO DAILY 11/22/17 02/05/18 History release ezetimibe 10 mg tablet 10 mg PO DAILY 90 Days tab 11/22/17 02/05/18 History fluticasone 50 mcg/actuation nasal 1 puff INTRANASAL DAILY 60 Days 11/22/17 History spray,suspension Rahat Cit/D3/K/Mag Ox/Stron/Bor 2 each PO DAILY 02/05/18 02/05/18 History [Prosteon Tablet] Milnacipran HCl [Savella] 50 mg PO BID 02/05/18 02/05/18 History Prescriptions/Medication Reconciliation: Continue sitagliptin 50 mg-metformin 1,000 mg tablet 2 tab PO HS omeprazole 20 mg capsule,delayed release 20 mg PO DAILY tizanidine 4 mg capsule 4 mg PO TID etodolac 300 mg capsule 300 mg PO BID escitalopram 20 mg tablet 20 mg PO DAILY insulin human U-100 NPH-regulr 70-30 mix 100 unit/mL subcutaneous susp 30 unit SUB-Q DAILY amlodipine 5 mg-benazepril 20 mg capsule 1 cap PO DAILY 90 Days cap aspirin 81 mg tablet,delayed release 81 mg PO DAILY ezetimibe 10 mg tablet 10 mg PO DAILY 90 Days tab fluticasone 50 mcg/actuation nasal spray,suspension 1 puff INTRANASAL DAILY 60 Days Rahat Cit/D3/K/Mag Ox/Stron/Bor [Prosteon Tablet] 2 each PO DAILY Milnacipran HCl [Savella] 50 mg PO BID
[2018-02-06 18:48] VITALS: BP 147/73
--- NOTE | 2018-02-06 20:04 | Cardiology Report ---
PROCEDURE: 2-D M-mode and color Doppler study INDICATIONS FOR THE TEST: Chest pain + COPD Heart Murmur Tobacco Smoking Palpitations+ Fatigue Syncope Edema Hypertension+Diabetes Mellitus+ Rheumatic Fever SOB ACUNA Obesity Hyperlipidemia Family History HD Additional History L BREAST CA, LUMPECTOMY PATIENT INFORMATION HEIGHT: 64 WEIGHT:194 GENDER: Female B/P:151/83 2-D/M-MODE INTERPRETATION: 2-D MEASUREMENTS OBSERVED VALUES IN CMS Right Ventricular Dimension (RVDd) 2.3 Interventricular Septum (Thickness)(IVsd) 1.04 Left Ventricular Internal Dimensions(LVIDd) 4.4 Left Ventricular Posterior Wall (Thickness)(LVPWd) 0.9 Aortic Root 3.0 Aortic Cusp Separation 1.9 Left Atrial Dimensions (LAD) 4.3 2D 1. Left atrium is mildly enlarged, left ventricle is normal size, there is mild concentric left ventricular hypertrophy, visually estimated ejection fraction 55% with no obvious regional wall motion abnormality. 2. The right atrium and right ventricle are normal size and contractility. 3. The aortic valve is minimally thickened and fibrosed. 4. The mitral and tricuspid valve leaflets are minimally thickened. 5. The pulmonic valve is poorly visualized. 6. No significant pericardial effusion noted. DOPPLER INTERROGATION: Doppler interrogation of the aortic, mitral and tricuspid valvular presence of mild aortic, mild mitral and tricuspid regurgitation, tricuspid and jet velocity insufficient for calculation of the right ventricular systolic pressure, diastolic parameters are inconclusive. CONCLUSION: 1. Mildly enlarged left atrium, normal left ventricular size, mild concentric left ventricular hypertrophy, visually estimated ejection fraction 55% with no obvious regional wall motion abnormality, diastolic parameters are inconclusive. 2. Mild aortic, mild mitral and tricuspid regurgitation 3. No significant pericardial effusion noted.
== END 2018-02-06 18:58 | disposition home or self-care (01) ==
LOC: ER 20:01 → 2ND 20:01
PROVIDERS: ADMIT Family Medicine; ATTEND Family Medicine

== ENCOUNTER → 2018-02-21 12:09 | Outpatient (CLI) | payer MEDICARE, SELFPAY ==
[2018-02-21 13:03] LABS: Anion Gap 15.7 mEq/L (5-15); Blood Urea Nitrogen 18 mg/dL (7-18); Calcium 9.2 mg/dL (8.5-10.1); Carbon Dioxide 27 mmol/L (21.0-32.0); Chloride 98 mmol/L (98-107); Creatinine,Serum 1.26 mg/dL (0.55-1.02); Estimated Glomerular Filt Rate 42 ml/min (>60); GFR (African American) 51 ML/MIN (>60); Glucose 168 mg/dL (74-106); Potassium 4.7 mmoL/L (3.5-5.1); Sodium 136 mmol/L (136-145)
== END ==
PROVIDERS: Family Provider Emergency Medicine; PCP Family Medicine; Visit Provider Physician Assistant
DX: I10 Essential (primary) hypertension (principal); R07.9 Chest pain, unspecified; E11.9 Type 2 diabetes mellitus without complications; E78.00 Pure hypercholesterolemia, unspecified
CPT/HCPCS: 36415; 80048

== ENCOUNTER → 2018-03-21 08:23 | Outpatient (CLI) | payer MEDICARE, SELFPAY ==
[2018-03-21 09:25] LABS: Anion Gap 11.4 mEq/L (5-15); Blood Urea Nitrogen 17 mg/dL (7-18); Carbon Dioxide 30 mmol/L (21.0-32.0); Chloride 98 mmol/L (98-107); Creatinine,Serum 1.03 mg/dL (0.55-1.02); Estimated Glomerular Filt Rate 53 ml/min (>60); GFR (African American) 65 ML/MIN (>60); Glucose 150 mg/dL (74-106); Potassium 4.4 mmoL/L (3.5-5.1); Sodium 135 mmol/L (136-145)
== END ==
PROVIDERS: PCP Family Medicine; Visit Provider Physician Assistant
DX: E11.9 Type 2 diabetes mellitus without complications (principal); E78.00 Pure hypercholesterolemia, unspecified; I10 Essential (primary) hypertension; R07.9 Chest pain, unspecified
CPT/HCPCS: 36415; 80048

== ENCOUNTER → 2018-05-21 08:18 | Outpatient (CLI) | payer MEDICARE, SELFPAY ==
--- NOTE | 2018-05-21 08:24 | MR_ITS ---
MR head/brain wo con HISTORY: Left eyelid ptosis and left facial drooping ITS.REASON: left eyelid ptosis ORDERING PHYSICIAN: Amita Deleon MD PATIENT AGE: 67 years Comparison: None TECHNIQUE: Standard multiplanar multiecho sequences are performed without contrast. FINDINGS: No evidence of restricted diffusion that would indicate an area of acute infarction. No midline shift, mass effect, intracranial hemorrhage, or hydrocephalus is evident. There are scattered periventricular and subcortical T2 white matter hyperintensities which may be related to ischemic gliotic change from microvascular disease. The cerebellopontine angles, cerebellum, and brainstem are unremarkable. Confluent slight increased T2 signal also noted in the central ericka consistent with ischemic gliotic change. The pituitary optic chiasm is callosum and cerebellar tonsils are unremarkable. No mastoid effusion or sinus air-fluid level. IMPRESSION: 1. No acute intracranial finding. 2. Scattered T2 white matter hyperintensities consistent with ischemic gliotic change from microvascular disease.
== END ==
PROVIDERS: PCP Family Medicine; Visit Provider Specialist
DX: H02.402 Unspecified ptosis of left eyelid (principal)
CPT/HCPCS: 36415; 70551

== ENCOUNTER → 2018-06-14 09:48 | Outpatient (CLI) | payer MEDICARE, SELFPAY ==
--- NOTE | 2018-06-14 09:50 | FL_ITS ---
EXAM: Barium swallow/esophagram. INDICATION: ITS.REASON: difficulty swallowng ORDERING PHYSICIAN: Amita Deleon MD PATIENT AGE: 67 years COMPARISON: None TECHNIQUE: In the upright position the patient was observed to swallow barium in both the AP and lateral view. The cervical esophagus was examined under fluoroscopy with images obtained. The patient was then placed prone in the right anterior oblique position and was observed to swallow barium with Valsalva technique . FLUOROSCOPY TIME: 1 minute and 30 seconds FINDINGS: There was no evidence of aspiration. There was normal peristalsis. No filling defects or mucosal abnormalities. No masses or strictures. Degenerative disc disease is present at C4-5 C5-6 and C6-C7 with mild indentation upon the posterior aspect of the esophagus at C5-C6 and C6-C7. No hiatal hernia. No evidence of compression upon the esophagus from any neck masses. IMPRESSION: Degenerative disc disease is present at C4-5 C5-6 and C6-C7 with mild indentation upon the posterior aspect of the esophagus at C5-C6 and C6-C7. .. This could cause some dysphasia. Otherwise negative barium swallow
== END ==
PROVIDERS: PCP Family Medicine; Visit Provider Specialist
DX: R13.10 Dysphagia, unspecified (principal)
CPT/HCPCS: 74220

== ENCOUNTER → 2018-06-26 14:43 | Outpatient (CLI) | payer MEDICARE, SELFPAY ==
--- NOTE | 2018-06-26 14:46 | US_ITS ---
US thyroid HISTORY: Feels like something study and throat ITS.REASON: THYROID NODULE ORDERING PHYSICIAN: Maxx Matos MD PATIENT AGE: 67 years Comparison: None FINDINGS: Right lobe: 3.9 x 1.1 x 1.7 cm. Homogeneous echogenicity. No nodules Left lobe: 4 x 0.8 x 1.1 cm. Homogeneous echogenicity with no nodules Isthmus: Unremarkable IMPRESSION: Negative thyroid ultrasound
== END ==
PROVIDERS: PCP Family Medicine; Visit Provider Family Medicine
DX: E04.1 Nontoxic single thyroid nodule (principal)
CPT/HCPCS: 76536

== ENCOUNTER → 2018-07-04 09:23 | Outpatient (CLI) | payer MEDICARE, SELFPAY ==
[2018-07-04 10:12] LABS: Basophils % 0.6 % (0.1-2.0); Eosinophils % 0.6 % (0.1-12.0); Hematocrit 39.1 % (37.0-47.0); Hemoglobin 12.6 g/dL (12.2-16.2); Lymphocytes # 1.6 K/mm3 (0.7-4.5); Lymphocytes % 24.3 % (10-50); Mean Corpuscular HGB Conc 32.2 g/dL (31.8-35.4); Mean Corpuscular Hemoglobin 27.5 pg (27.0-31.2); Mean Corpuscular Volume 85.4 fl (81-99); Mean Platelet Volume 7.4 fl (7.4-10.4); Monocytes # 0.3 K/mm3 (0.1-1.0); Monocytes % 4.9 % (1.7-9.3); Neutrophils # 4.6 K/mm3 (1.8-7.8); Neutrophils % 69.7 % (37.0-80.0); Platelet Count 386 K/mm3 (142-424); Red Blood Count 4.58 M/mm3 (4.20-5.40); Red Cell Distribution Width 13.3 % (11.5-17.5); White Blood Count 6.6 K/mm3 (4.8-10.8)
[2018-07-04 13:13] LABS: Ferritin 36 ng/mL (8-388)
[2018-07-05 08:30] LABS: Iron 63 ug/dL (27-139); UIBC 294 ug/dL (118-369)
[2018-07-05 13:42] LABS: Iron Saturation 18 % (15-55)
== END ==
PROVIDERS: Visit Provider Nurse Practitioner
DX: D64.9 Anemia, unspecified (principal); C50.912 Malignant neoplasm of unspecified site of left female breast
CPT/HCPCS: 36415; 82728; 83540; 83550; 85025

== ENCOUNTER → 2018-07-16 14:54 | Outpatient (CLI) | payer MEDICARE, SELFPAY ==
--- NOTE | 2018-07-16 15:08 | XR_ITS ---
XR chest 2V HISTORY: Shortness of breath, coronary artery disease ITS.REASON: SOB, JEFFREY ORDERING PHYSICIAN: Maxx Matos MD PATIENT AGE: 67 years COMPARISON: 02/05/2018 FINDINGS: The cardiomediastinal silhouette and pulmonary vascularity are within normal limits. The lungs are clear without infiltrates, suspicious nodules, or pleural effusions. No acute bony abnormalities. IMPRESSION: Negative chest, no acute finding
[2018-07-16 16:15] LABS: Basophils % 0.4 % (0.1-2.0); Eosinophils # 0.1 K/mm3 (0.0-0.4); Eosinophils % 0.8 % (0.1-12.0); Hematocrit 41.1 % (37.0-47.0); Hemoglobin 13.3 g/dL (12.2-16.2); Lymphocytes # 2.8 K/mm3 (0.7-4.5); Mean Corpuscular HGB Conc 32.3 g/dL (31.8-35.4); Mean Corpuscular Hemoglobin 27.4 pg (27.0-31.2); Mean Corpuscular Volume 84.9 fl (81-99); Mean Platelet Volume 7.3 fl (7.4-10.4); Monocytes # 0.4 K/mm3 (0.1-1.0); Monocytes % 5.6 % (1.7-9.3); Neutrophils # 4.5 K/mm3 (1.8-7.8); Neutrophils % 57.3 % (37.0-80.0); Platelet Count 379 K/mm3 (142-424); Red Blood Count 4.84 M/mm3 (4.20-5.40); Red Cell Distribution Width 13.4 % (11.5-17.5); White Blood Count 7.8 K/mm3 (4.8-10.8)
[2018-07-16 17:41] LABS: Anion Gap 17.5 mEq/L (5-15); Blood Urea Nitrogen 43 mg/dL (7-18); Calcium 9.8 mg/dL (8.5-10.1); Carbon Dioxide 29 mmol/L (21.0-32.0); Chloride 94 mmol/L (98-107); Creatinine,Serum 1.72 mg/dL (0.55-1.02); Estimated Glomerular Filt Rate 30 ml/min (>60); GFR (African American) 36 ML/MIN (>60); Glucose 133 mg/dL (74-106); Potassium 4.5 mmoL/L (3.5-5.1); Sodium 136 mmol/L (136-145)
== END ==
PROVIDERS: PCP Family Medicine; Visit Provider Family Medicine
DX: R06.09 Other forms of dyspnea (principal); I10 Essential (primary) hypertension; R06.02 Shortness of breath; I25.10 Atherosclerotic heart disease of native coronary artery without angina pectoris; R94.30 Abnormal result of cardiovascular function study, unspecified
CPT/HCPCS: 36415; 71046; 80048; 83880; 85025

== ENCOUNTER → 2018-08-23 07:05 | Outpatient (CLI) | payer MEDICARE, SELFPAY ==
--- NOTE | 2018-08-23 07:51 | NM_ITS ---
History and Indications: Hypertension, diabetes, hyperlipidemia, family history, chest pain, shortness of breath, palpitations and fatigue Procedure: Patient received a 0.4, intravenous Lexiscan, resting heart rate was 77 bpm resting blood pressure 146/71, with Lexiscan maximum heart rate achieved was 97 bpm which is less than 85% of the maximum predicted heart rate and a blood pressure was 125/57. With Lexiscan patient complained of mild chest pressure and shortness of breath Electrocardiogram: Resting electrocardiogram showed sinus rhythm, with Lexiscan there is less than 1.[address] segment depression noted from the baseline EKG. The EKG portion of the Lexiscan Myoview is nondiagnostic. Cardiac stress and resting SPECT images: Cardiac stress and resting SPECT images were obtained using technetium 99 Myoview 31.5 mCi stress and 10.1 mCi at rest. Gated SPECT further analysis of segmental wall motion and calculation of the ejection fraction also done. Cardiac stress and the suspect images show reversible ischemia involving the anteroapical and anteroseptal wall, computer derived ejection fraction is over 65% with no regional wall motion abnormality, right ventricle is normal size and contractility. Conclusion: 1. The EKG portion of the Lexiscan Myoview is nondiagnostic. 2. Scintigraphic evidence of reversible ischemia involving the anteroapical and anteroseptal wall, computer derived ejection fraction is over 65% with no regional wall motion abnormality, right ventricle is normal size and contractility. 3. Abnormal Lexiscan Myoview study.
--- NOTE | 2018-08-23 10:21 | HMH.ITSHM ---
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 [] isosorb amlodopine ezetimibe savella bisoprolol asa etodolac metformin tizanidine omeprazole
== END ==
PROVIDERS: PCP Family Medicine; Visit Provider Internal Medicine
DX: R07.9 Chest pain, unspecified; R06.02 Shortness of breath; E78.00 Pure hypercholesterolemia, unspecified; I20.9 Angina pectoris, unspecified; I10 Essential (primary) hypertension
CPT/HCPCS: 78452; 93017; A9502; J2785

== ENCOUNTER 2018-09-17 13:55 | Outpatient (RCR) | payer MEDICARE, SELFPAY | END 2018-12-21 13:17 | disposition home or self-care (01) | LOC: PT 13:55 | PROVIDERS: Visit Provider Internal Medicine | DX: Z95.5 Presence of coronary angioplasty implant and graft (principal) | CPT/HCPCS: 93798 ==

== ENCOUNTER → 2018-10-08 06:31 | Outpatient (CLI) | payer MEDICARE, SELFPAY ==
--- NOTE | 2018-10-08 06:36 | NM_ITS ---
CARDIOLITE SPECT MYOCARDIAL PERFUSION [facility], REST AND STRESS: History: Coronary artery disease, hypertension, diabetes, hyperlipidemia, family history, chest pain and shortness of breath. Procedure: Patient exercised on Ricky protocol 5 minutes and 30 seconds, resting heart rate was 71 bpm resting blood pressure 167/84. With exercise maximum heart rate achieved was 1 38 bpm which is equal to 91% of the maximum predicted heart rate and a blood pressure was 175/78. Test was stopped due to shortness of breath, patient denied complained of chest pain. Patient has adequate exercise capacity achieved 7mets of workload on treadmill, the blood pressure response to exercise was abnormal. Electrocardiogram: Resting electrocardiogram showed sinus rhythm, with exercise there is less than 1.[address] segment depression noted from the baseline EKG. The EKG portion of the exercise Myoview is negative for ischemia. Cardiac stress and resting SPECT images: Cardiac stress and resting SPECT images were obtained using technetium 99 Myoview 31.6 mCi at stress and 10.0 mCi at rest. Gated SPECT further analysis of segmental wall motion and calculation of the ejection fraction also done. Cardiac stress and resting SPECT show a fixed defect in the anterior wall with normal contractility gated SPECT is secondary to soft tissue attenuation, no reversible ischemia seen. Computer derived ejection fraction is over 65% with no regional wall motion abnormality, right ventricle is normal size and contractility. Conclusion: 1. The EKG portion of the exercise Myoview is negative for ischemia, patient has adequate exercise capacity achieved 7mets of workload on treadmill, the blood pressure response to exercise was abnormal, there was no exercise-induced chest discomfort. 2. No scintigraphic evidence of reversible ischemia seen, computer derived ejection fraction 50, right ventricle is normal size and contractility.
--- NOTE | 2018-10-08 07:46 | HMH.ITSHM ---
Current Home Medications as stated by this patient Nichole Morales or brewery representative. []METFORMIN INSULIN AMLODIPINE BRILINTA SYVELLA ZETIA ASA
== END ==
PROVIDERS: PCP Family Medicine; Visit Provider Internal Medicine Cardiovascular Disease
DX: I25.118 Atherosclerotic heart disease of native coronary artery with other forms of angina pectoris; R06.02 Shortness of breath; E10.8 Type 1 diabetes mellitus with unspecified complications; E78.00 Pure hypercholesterolemia, unspecified; Z78.9 Other specified health status
CPT/HCPCS: 78452; 93017; A9502

== ENCOUNTER → 2018-10-15 13:01 | Outpatient (CLI) | payer MEDICARE, SELFPAY ==
[2018-10-15 20:27] LABS: Anion Gap 15.7 mEq/L (5-15); Blood Urea Nitrogen 14 mg/dL (7-18); Calcium 9.3 mg/dL (8.5-10.1); Carbon Dioxide 25 mmol/L (21.0-32.0); Chloride 99 mmol/L (98-107); Creatinine,Serum 1.16 mg/dL (0.55-1.02); Estimated Glomerular Filt Rate 46 ml/min (>60); GFR (African American) 56 ML/MIN (>60); Glucose 148 mg/dL (74-106); Potassium 4.7 mmoL/L (3.5-5.1); Sodium 135 mmol/L (136-145)
== END ==
PROVIDERS: Visit Provider Physician Assistant
DX: E10.8 Type 1 diabetes mellitus with unspecified complications (principal); E78.00 Pure hypercholesterolemia, unspecified; I10 Essential (primary) hypertension; I25.118 Atherosclerotic heart disease of native coronary artery with other forms of angina pectoris; R06.02 Shortness of breath; Z79.4 Long term (current) use of insulin; Z79.84 Long term (current) use of oral hypoglycemic drugs
CPT/HCPCS: 36415; 80048

== ENCOUNTER → 2018-10-22 12:50 | Outpatient (CLI) | payer MEDICARE, SELFPAY ==
[2018-10-22 13:32] LABS: Hematocrit 37.3 % (37.0-47.0); Hemoglobin 12.3 g/dL (12.2-16.2)
[2018-10-22 14:19] LABS: Blood Urea Nitrogen 14 mg/dL (7-18); Creatinine,Serum 1.17 mg/dL (0.55-1.02); Estimated Glomerular Filt Rate 46 ml/min (>60); GFR (African American) 56 ML/MIN (>60)
== END ==
PROVIDERS: PCP Family Medicine; Visit Provider Internal Medicine
DX: Z51.81 Encounter for therapeutic drug level monitoring (principal); Z95.5 Presence of coronary angioplasty implant and graft
CPT/HCPCS: 36415; 82565; 84520; 85014; 85018

== ENCOUNTER → 2018-11-06 09:05 | Outpatient (CLI) | payer MEDICARE, SELFPAY ==
[2018-11-06 11:06] LABS: Anion Gap 15.7 mEq/L (5-15); Blood Urea Nitrogen 23 mg/dL (7-18); Calcium 9.1 mg/dL (8.5-10.1); Carbon Dioxide 26 mmol/L (21.0-32.0); Chloride 99 mmol/L (98-107); Creatinine,Serum 1.25 mg/dL (0.55-1.02); Estimated Glomerular Filt Rate 43 ml/min (>60); GFR (African American) 52 ML/MIN (>60); Glucose 118 mg/dL (74-106); Potassium 4.7 mmoL/L (3.5-5.1); Sodium 136 mmol/L (136-145)
[2018-11-06 11:13] LABS: Alanine Aminotransferase 24 U/L (12-78); Albumin Level 3.7 gm/dL (3.4-5.0); Alkaline Phosphatase 69 U/L (46-116); Aspartate Amino Transferase 15 U/L (15-37); Bilirubin,Direct 0.1 mg/dL (0.0-0.2); Bilirubin,Indirect 0.2 mg/dL (0.0-0.9); Bilirubin,Total 0.3 mg/dL (0.2-1.0); Chol/HDL Ratio 4.3 (1-3.5); Cholesterol 220 mg/dL (140-200); HDL Cholesterol 51 mg/dL (29-89); LDL Cholesterol 136 mg/dL (0-130); Total Protein,Serum 7.1 gm/dL (6.4-8.2); Triglycerides 166 mg/dL (30-200); VLDL Cholesterol 33 mg/dL (0-40)
== END ==
PROVIDERS: Urology; Visit Provider Physician Assistant
DX: I25.118 Atherosclerotic heart disease of native coronary artery with other forms of angina pectoris (principal); R06.02 Shortness of breath; R60.9 Edema, unspecified; E10.8 Type 1 diabetes mellitus with unspecified complications; E78.00 Pure hypercholesterolemia, unspecified; I10 Essential (primary) hypertension
CPT/HCPCS: 36415; 80048; 80061; 80076

== ENCOUNTER → 2018-11-15 08:14 | Outpatient (CLI) | payer MEDICARE, SELFPAY ==
--- NOTE | 2018-11-15 08:19 | MM_ITS ---
MM Dig screening mamm BI w/CAD CAD Screening COMPARISON: Digital mammograms with CAD 11/13/2017 and 11/08/2016 INDICATION: There is a history of breast cancer patient's sister diagnosed at age 47. There is been previous lumpectomy left breast for malignancy 2014 TECHNIQUE: Standard CC and MLO images were obtained. R2 CAD reviewed. FINDINGS: The breasts are composed primarily of fat with minimal scattered fiber glandular densities in each breast. The left breast is slightly smaller than the right breast probably reflecting changes from previous lumpectomy. Very subtle architectural distortion is seen upper outer quadrant left breast presumably at the lumpectomy site. There are couple of benign-appearing microcalcifications in each breast. There is no suspicious lesion and there are no suspicious microcalcifications. IMPRESSION: Fatty type breast parenchyma with no suspicious lesion seen BI-RADS Category: 2 Benign Finding(s) RECOMMENDED FOLLOW-UP: 1YR - 1 YEAR FOLLOW-UP (A letter has been sent to the patient regarding results of the study.)
== END ==
PROVIDERS: PCP Family Medicine; Visit Provider Nurse Practitioner
DX: Z12.31 Encounter for screening mammogram for malignant neoplasm of breast (principal)
CPT/HCPCS: 77067

== ENCOUNTER → 2018-11-28 08:04 | Outpatient (CLI) | payer MEDICARE, SELFPAY ==
[2018-11-28 09:09] LABS: Anion Gap 12.6 mEq/L (5-15); Blood Urea Nitrogen 23 mg/dL (7-18); Calcium 9.2 mg/dL (8.5-10.1); Carbon Dioxide 30 mmol/L (21.0-32.0); Chloride 93 mmol/L (98-107); Creatinine,Serum 1.27 mg/dL (0.55-1.02); Estimated Glomerular Filt Rate 42 ml/min (>60); GFR (African American) 51 ML/MIN (>60); Glucose 175 mg/dL (74-106); Potassium 4.6 mmoL/L (3.5-5.1); Sodium 131 mmol/L (136-145)
== END ==
PROVIDERS: Visit Provider Nurse Practitioner Family
DX: I51.89 Other ill-defined heart diseases (principal); R07.2 Precordial pain
CPT/HCPCS: 36415; 80048

== ENCOUNTER → 2019-02-06 10:37 | Outpatient (CLI) | payer MEDICARE, SELFPAY ==
[2019-02-06 10:59] LABS: Basophils % 0.7 % (0.1-2.0); Eosinophils # 0.1 K/mm3 (0.0-0.4); Eosinophils % 1.2 % (0.1-12.0); Hematocrit 37.8 % (37.0-47.0); Hemoglobin 12.2 g/dL (12.2-16.2); Lymphocytes # 1.6 K/mm3 (0.7-4.5); Lymphocytes % 32.6 % (10-50); Mean Corpuscular HGB Conc 32.4 g/dL (31.8-35.4); Mean Corpuscular Hemoglobin 28.2 pg (27.0-31.2); Mean Platelet Volume 7.4 fl (7.4-10.4); Monocytes # 0.4 K/mm3 (0.1-1.0); Monocytes % 7.2 % (1.7-9.3); Neutrophils # 2.8 K/mm3 (1.8-7.8); Neutrophils % 58.3 % (37.0-80.0); Platelet Count 375 K/mm3 (142-424); Red Blood Count 4.34 M/mm3 (4.20-5.40); Red Cell Distribution Width 12.8 % (11.5-17.5); White Blood Count 4.9 K/mm3 (4.8-10.8)
[2019-02-06 12:36] LABS: Alanine Aminotransferase 31 U/L (12-78); Albumin Level 3.9 gm/dL (3.4-5.0); Albumin/Globulin Ratio 1.1 (1.1-1.8); Alkaline Phosphatase 68 U/L (46-116); Anion Gap 11.8 mEq/L (5-15); Aspartate Amino Transferase 21 U/L (15-37); Bilirubin,Total 0.4 mg/dL (0.2-1.0); Blood Urea Nitrogen 26 mg/dL (7-18); Calcium 9.7 mg/dL (8.5-10.1); Carbon Dioxide 30 mmol/L (21.0-32.0); Chloride 94 mmol/L (98-107); Creatinine,Serum 1.31 mg/dL (0.55-1.02); Estimated Glomerular Filt Rate 40 ml/min (>60); GFR (African American) 49 ML/MIN (>60); Globulin 3.6 gm/dl (1.3-3.2); Glucose 317 mg/dL (74-106); Potassium 4.8 mmoL/L (3.5-5.1); Sodium 131 mmol/L (136-145); Thyroid Stimulating Hormone 1.95 uIU/ml (0.358-3.740); Total Protein,Serum 7.5 gm/dL (6.4-8.2)
== END ==
PROVIDERS: Visit Provider Nurse Practitioner
DX: C50.912 Malignant neoplasm of unspecified site of left female breast (principal); D64.9 Anemia, unspecified; R53.83 Other fatigue
CPT/HCPCS: 36415; 80053; 84443; 85025

== ENCOUNTER → 2019-03-14 09:37 | Outpatient (CLI) | payer MEDICARE, SELFPAY ==
--- NOTE | 2019-03-14 09:45 | XR_ITS ---
PROCEDURE: XR LUMBAR SPINE MIN 4V CLINICAL INDICATION: LT LUMBROSACRAL RADICULOPATHY COMPARISON: No exams were available for comparison FINDINGS: Bone density, alignment and vertebral body heights are normal. There is severe loss of disc space height with vacuum disc changes at L5-S1. Posterior elements are intact. IMPRESSION: L5-S1 chronic degenerative disc disease. Dictated by: Guido Cardozo 03/14/2019 10:20 Electronically signed by Guido Cardozo in [place] 03/14/2019 10:20
== END ==
PROVIDERS: PCP Family Medicine; Visit Provider Family Medicine
DX: M54.17 Radiculopathy, lumbosacral region (principal)
CPT/HCPCS: 72110

== ENCOUNTER → 2019-03-28 09:14 | Outpatient (CLI) | payer MEDICARE, SELFPAY ==
[2019-03-28 12:00] LABS: Anion Gap 12.9 mEq/L (5-15); Blood Urea Nitrogen 25 mg/dL (7-18); Calcium 9.5 mg/dL (8.5-10.1); Carbon Dioxide 35 mmol/L (21.0-32.0); Chloride 94 mmol/L (98-107); Estimated Glomerular Filt Rate 41 ml/min (>60); GFR (African American) 49 ML/MIN (>60); Glucose 120 mg/dL (74-106); Potassium 4.9 mmoL/L (3.5-5.1); Sodium 137 mmol/L (136-145)
== END ==
PROVIDERS: Visit Provider Nurse Practitioner Family
DX: E78.5 Hyperlipidemia, unspecified (principal); I25.10 Atherosclerotic heart disease of native coronary artery without angina pectoris; I27.20 Pulmonary hypertension, unspecified; I50.30 Unspecified diastolic (congestive) heart failure; R06.02 Shortness of breath; R60.9 Edema, unspecified; Z95.5 Presence of coronary angioplasty implant and graft
CPT/HCPCS: 36415; 80048

== ENCOUNTER → 2019-05-21 12:48 | Outpatient (CLI) | payer MEDICARE, SELFPAY ==
--- NOTE | 2019-05-21 14:20 | XR_ITS ---
PROCEDURE: XR CHEST 2V CLINICAL HISTORY: ap COMPARISON: CHESTW CT chest w con from 06/15/2017 CXR2V XR chest 2V from 07/25/2017 CXR2V XR chest 2V from 02/05/2018 CXR2V XR chest 2V from 07/16/2018 FINDINGS: The cardiomediastinal silhouette and pulmonary vascularity are within normal limits. The lungs are clear without infiltrates, suspicious nodules, or pleural effusions. No acute bony abnormalities. IMPRESSION: No acute findings. Dictated by: Beny Brody 05/21/2019 14:48 Electronically signed by Beny Brody in [facility] 05/21/2019 14:48
[2019-05-21 14:52] LABS: Blood Urea Nitrogen 27 mg/dL (7-18); Calcium 9.6 mg/dL (8.5-10.1); Carbon Dioxide 29 mmol/L (21.0-32.0); Chloride 91 mmol/L (98-107); Estimated Glomerular Filt Rate 37 ml/min (>60); GFR (African American) 45 ML/MIN (>60); Glucose 118 mg/dL (74-106); Sodium 133 mmol/L (136-145); Troponin I < 0.02 ng/ml (0.00-0.06)
== END ==
LOC: LAB 12:49 → RAD 14:17
PROVIDERS: PCP Family Medicine; Visit Provider Urology
DX: E78.5 Hyperlipidemia, unspecified (principal); I10 Essential (primary) hypertension; I27.20 Pulmonary hypertension, unspecified; R06.02 Shortness of breath; R60.9 Edema, unspecified; Z95.5 Presence of coronary angioplasty implant and graft; I20.9 Angina pectoris, unspecified; R53.83 Other fatigue; R42 Dizziness and giddiness
CPT/HCPCS: 36415; 71046; 80048; 84484; 93225; 93226

== ENCOUNTER → 2019-05-28 11:00 | Outpatient (CLI) | payer MEDICARE, SELFPAY ==
--- NOTE | 2019-05-28 11:00 | CA_ITS ---
APPROVED REPORT EXAM: Comprehensive 2D, Doppler, and color-flow Echocardiogram Marine Electrician: Gill See RT(R) Ht: 5 ft 4 in Wt: 191lbs BSA: 1.92 BP: 137/46 mmHg Indications: CP, HTN, SOB, ACUNA, hyperlipidemia, 2D Dimensions LVOT 1.87 cm (M/F) 1.5-2.5 M-Mode Dimensions RVDd 2.22 cm (0.9-2.6) LVDd 3.62 cm (3.5-5.7) LVDs 2.69 cm (3.5-5.7) IVSd 1.00 cm (0.6-1.1) PWd 1.08 cm (0.6-1.1) EF (Teich) 51.40% FS 25.70% EDV (Teich) 55.20 mL ESV (Teich) 26.80 mL LV Diastology E/A Ratio 0.51 Mitral Valve MV A Velocity 91.00 (40-130 cm/s) Left Ventricle Left atrium is mildly enlarged, left ventricle is normal size, mild concentric left ventricular hypertrophy, visually estimated ejection fraction 55% with no regional wall motion abnormality, grade 1 diastolic dysfunction seen without tissue Doppler evidence of raise left atrial pressure. Right Ventricle Right atrium and right ventricular normal size and contractility. Aortic Valve Aortic valve is thickened and calcified, there is no aortic stenosis or aortic insufficiency. Mitral Valve Mitral valve is minimally thickened, there is mild mitral regurgitation. Tricuspid Valve Tricuspid valve is grossly normal, there is mild tricuspid regurgitation. Tricuspid regurgitation jet velocity is inadequate for calculation of the right ventricular systolic pressure. Pulmonic Valve Pulmonic valve is poorly visualized. Great Vessels Aortic root is normal size. Pericardium No significant pericardial effusion noted. Conclusion 1. Mildly enlarged left atrium, normal left ventricular size, mild concentric left ventricular hypertrophy, visually estimated ejection fraction 55% with no regional wall motion abnormality, grade 1 diastolic dysfunction seen without tissue Doppler evidence of raise left atrial pressure. 2. Mild mitral and tricuspid regurgitation. 3. No significant pericardial effusion noted. Electronically signed by : Chad Sullivan, 05/29/2019 06:02:34
== END ==
PROVIDERS: PCP Family Medicine; Visit Provider Urology
DX: I27.20 Pulmonary hypertension, unspecified; I20.9 Angina pectoris, unspecified; E78.5 Hyperlipidemia, unspecified; I10 Essential (primary) hypertension; I51.89 Other ill-defined heart diseases; R06.02 Shortness of breath; R53.83 Other fatigue
CPT/HCPCS: 93306

== ENCOUNTER → 2019-06-03 11:16 | Outpatient (CLI) | payer MEDICARE, SELFPAY ==
[2019-06-03 14:04] LABS: Anion Gap 15.6 mEq/L (5-15); Blood Urea Nitrogen 23 mg/dL (7-18); Calcium 9.1 mg/dL (8.5-10.1); Carbon Dioxide 27 mmol/L (21.0-32.0); Chloride 94 mmol/L (98-107); Creatinine,Serum 1.16 mg/dL (0.55-1.02); Estimated Glomerular Filt Rate 46 ml/min (>60); GFR (African American) 56 ML/MIN (>60); Glucose 91 mg/dL (74-106); Potassium 4.6 mmoL/L (3.5-5.1); Sodium 132 mmol/L (136-145)
== END ==
PROVIDERS: Visit Provider Urology
DX: E78.5 Hyperlipidemia, unspecified (principal); I10 Essential (primary) hypertension; I20.9 Angina pectoris, unspecified; R06.02 Shortness of breath; R53.83 Other fatigue
CPT/HCPCS: 36415; 80048

== ENCOUNTER → 2019-07-08 10:09 | Outpatient (CLI) | payer MEDICARE, SELFPAY ==
[2019-07-08 10:37] LABS: Basophils % 0.7 % (0.1-2.0); Eosinophils # 0.4 K/mm3 (0.0-0.4); Eosinophils % 6.6 % (0.1-12.0); Hematocrit 33.7 % (37.0-47.0); Lymphocytes # 1.3 K/mm3 (0.7-4.5); Lymphocytes % 22.5 % (10-50); Mean Corpuscular HGB Conc 29.6 g/dL (31.8-35.4); Mean Corpuscular Hemoglobin 25.8 pg (27.0-31.2); Mean Corpuscular Volume 87.1 fl (81-99); Mean Platelet Volume 7.3 fl (7.4-10.4); Monocytes # 0.3 K/mm3 (0.1-1.0); Monocytes % 5.5 % (1.7-9.3); Neutrophils # 3.6 K/mm3 (1.8-7.8); Neutrophils % 64.7 % (37.0-80.0); Platelet Count 509 K/mm3 (142-424); Red Blood Count 3.87 M/mm3 (4.20-5.40); Red Cell Distribution Width 15.2 % (11.5-17.5); White Blood Count 5.6 K/mm3 (4.8-10.8)
[2019-07-08 11:49] LABS: Anion Gap 15.2 mEq/L (5-15); Blood Urea Nitrogen 15 mg/dL (7-18); Calcium 9.1 mg/dL (8.5-10.1); Carbon Dioxide 26 mmol/L (21.0-32.0); Chloride 100 mmol/L (98-107); Creatinine,Serum 1.03 mg/dL (0.55-1.02); Estimated Glomerular Filt Rate 53 ml/min (>60); GFR (African American) 64 ML/MIN (>60); Glucose 226 mg/dL (74-106); Potassium 5.2 mmoL/L (3.5-5.1); Sodium 136 mmol/L (136-145)
== END ==
PROVIDERS: Visit Provider Thoracic Surgery (Cardiothoracic Vascular Surgery)
DX: I25.10 Atherosclerotic heart disease of native coronary artery without angina pectoris (principal)
CPT/HCPCS: 36415; 80048; 85025

== ENCOUNTER 2019-07-30 10:05 | Outpatient (RCR) | payer MEDICARE, SELFPAY | END 2019-10-10 13:11 | disposition home or self-care (01) | LOC: PT 10:05 | PROVIDERS: Visit Provider Urology | DX: Z95.1 Presence of aortocoronary bypass graft (principal) | CPT/HCPCS: 93798 ==

== ENCOUNTER → 2019-10-30 06:26 | Outpatient (CLI) | payer MEDICARE, SELFPAY ==
--- NOTE | 2019-10-30 06:27 | CA_ITS ---
APPROVED REPORT Exam: Pharmacologic Technologist: Kimberly Nation, Ht: 5 ft 4 in Wt: 194 lbs BSA: 1.93 m2 HR: 63 bpm BP: 115/79 mmHg Rhythm: SINUS RHYTHM Medical History Medical History: CAD s/p CABG, CAD s/p stent, Diabetic ??? Insulin, HTN, Hyperlipidemia Medications: Asa,,,,, Metformin,,,,, Escitalopram,,,,, Carvedilol,,,,, Iron,,,,, Lasix,,,,, Plavix,,,,, Savella,,,,, Tizanidine,,,,, NovOLIN,,,,, Ezetimibe,,,,, LansPRAZOLE,,,,, Allergies: STATINS,PCN,CEFUROXIME,ISOSORBIDE Cardiac Risk Factors: HTN, Hyperlipidemia, Diabetes (insulin), FHX of CAD Previous Cardiac Procedures: CABG Stress Test Details Test: LEXISCAN HR Resting HR: 63 bpm Max Heart Rate (APMHR): 151 bpm Max HR Achieved: 87 bpm Target HR (85% APMHR): 128 bpm % of APMHR: 57 Recovery HR: 75 bpm BP Resting BP: 115.0/79.0 mmHg Max BP: 128.0/43.0 mmHg Recovery BP: 122.0/45.0 mmHg ECG Resting ECG: SINUS RHYTHM Clinical Exercise duration: 04:00 min Highest Stage Achieved: Exercise capacity: 1.0 METs Stress ECG Conclusion LEXISCAN PORTION COMPLETED. PATIENT C/O SOA DURING PEAK INFUSION. NO CHEST PAIN. POSITIVE FOR SOA DURING PEAK INFUSION. NO ECTOPY. LESS THAN 1.5MM ST DEPRESSION. IMAGES TO FOLLOW Electronically signed by : Chad Sullivan, 10/31/2019 13:39:58
--- NOTE | 2019-10-30 06:27 | NM_ITS ---
APPROVED REPORT Exam: Nuclear Stress Test Indication: Chest pain, SOB, Fatigue, HTN, DM, High cholesterol, Family history, CAD, CABG Patient Location: Outpatient Stress Tech: Carolyn Nation NM Tech:Belinda Lorenzana, ARRT, RT (R)(N) Ht: 5 ft 4 in Wt: 194 lbs Bra Size: 42D HR: 63 bpm BP: 115/79 mmHg BSA: 1.93 m2 BMI: 33.2 History: Chest pain, SOB, Fatigue, HTN, DM, High cholesterol, Family history, CAD, CABG Procedure: Patient received a 0.4 mg of intravenous Lexiscan, resting heart rate 63 bpm, resting blood pressure 115/79 mmHg, with Lexiscan maximum heart rate achived was 83 bpm which is Less than 85 % of the maximum predicted heart rate and blood pressure was 108/47 mmHg. With Lexiscan, patient denied any complaint of chest pain. Electrocardiogram Resting electrocardiogram showed sinus rhythm, with Lexiscan there is less than 1.[address] segment depression noted from the baseline EKG. The EKG portion of the Lexiscan Myoview is nondiagnostic. Cardiac Stress and Resting SPECT Images: Cardiac Stress and Resting SPECT images were obtained using technetium 99m Myoview 30.3 mCi stress and 10.31 mCi at rest. Gated SPECT with analysis of segmental wall motion and calculation of the ejection fraction also done. Cardiac stress and resting SPECT images show a fixed defect involving the anterior apical and anteroseptal wall consistent with area of nontransmural myocardial scarring without significant sharon-infarct ischemia, computer derived ejection fraction is approximately 60% with anterior apical and anteroseptal wall hypokinesis. Right ventricle is normal size and contractility. Conclusion: 1. The EKG portion of the Lexiscan is nondiagnostic. 2. Scintigraphic evidence of nontransmural myocardial scarring involving the anterior apical and anteroseptal wall, without significant sharon-infarct ischemia, computer derived ejection fraction is approximately 60% with segmental wall motion abnormality described above, right ventricle is normal size and contractility. 3. Abnormal Lexiscan Myoview study. Electronically signed by : Chad Sullivan, 10/31/2019 13:44:16
--- NOTE | 2019-10-30 06:27 | XR_ITS ---
PROCEDURE: XR CHEST 2V CLINICAL HISTORY: ap Left upper sided chest pain COMPARISON: CHW CT CHEST W/ CONTRAST from 10/13/[address] chest w con from 06/15/2017 CXR2V XR chest 2V from 02/05/2018 CXR2V XR chest 2V from 07/16/2018 XR CHEST 2V from 05/21/2019 FINDINGS: Prior median sternotomy. Normal heart size. Soft tissue density is noted in the right lung base medially. This is more prominent than when compared to previous exams. To pericardial fat pad however the increased prominence does raises suspicion of other etiologies such as a mass. Follow-up suggested. The remaining lungs are clear. No acute bony anomalies. IMPRESSION: Increased density right lung base medially possibly related to prominent pericardial fat pad however has increased in density compared to previous studies. Cannot exclude the possibility of a mass. Consider chest CT for further evaluation Dictated by: Jay Figueroa MD 10/30/2019 09:00 Electronically signed by Jay Figueroa MD in [place] 10/30/2019 09:00
--- NOTE | 2019-10-30 07:17 | HMH.ITSHM ---
Current Home Medications as stated by this patient Nichole Morales or account services representative. []ASA CARVEDILOL CLOPIDOGREL ESCITALOPRAM EZETIMIBE IRON FUROSEMIDE METFORMIN LANSPRAZOLE SAVELLA TIZANIDINE BUSPIRONE MAGNESIUM NOVOLIN
== END ==
PROVIDERS: PCP Family Medicine; Visit Provider Urology
DX: E78.5 Hyperlipidemia, unspecified (principal); I10 Essential (primary) hypertension; I20.9 Angina pectoris, unspecified; R06.02 Shortness of breath; R53.83 Other fatigue; E11.9 Type 2 diabetes mellitus without complications; I27.20 Pulmonary hypertension, unspecified; R60.9 Edema, unspecified; R94.30 Abnormal result of cardiovascular function study, unspecified; Z95.1 Presence of aortocoronary bypass graft; Z95.5 Presence of coronary angioplasty implant and graft
CPT/HCPCS: 71046; 78452; 93017; A9502; J2785

== ENCOUNTER 2019-11-15 07:20 | Day surgery (SDC) | payer MEDICARE, SELFPAY ==
[2019-11-15] VITALS (13 sets, daily range): BP systolic 116–176; BP diastolic 58–81; PULSE 69–88; RESP 18–20; TEMP 36.6; O2SAT 97–99; BMI 32.8
[2019-11-15 08:05] LABS: Basophils % 0.6 % (0.1-2.0); Eosinophils # 0.1 K/mm3 (0.0-0.4); Eosinophils % 2.8 % (0.1-12.0); Hematocrit 34.7 % (37.0-47.0); Hemoglobin 11.9 g/dL (12.2-16.2); Lymphocytes # 1.7 K/mm3 (0.7-4.5); Mean Corpuscular HGB Conc 34.3 g/dL (31.8-35.4); Mean Corpuscular Hemoglobin 27.9 pg (27.0-31.2); Mean Corpuscular Volume 81.2 fl (81-99); Mean Platelet Volume 7.3 fl (7.4-10.4); Monocytes # 0.3 K/mm3 (0.1-1.0); Monocytes % 6.4 % (1.7-9.3); Neutrophils # 2.5 K/mm3 (1.8-7.8); Neutrophils % 53.1 % (37.0-80.0); Platelet Count 341 K/mm3 (142-424); Red Blood Count 4.27 M/mm3 (4.20-5.40); Red Cell Distribution Width 14.7 % (11.5-17.5); White Blood Count 4.6 K/mm3 (4.8-10.8)
[2019-11-15 08:06] LABS: Chloride 98 mmol/L (98-107); Sodium 136 mmol/L (136-145)
[2019-11-15 08:07] LABS: Potassium 4.5 mmoL/L (3.5-5.1)
[2019-11-15 08:09] LABS: Blood Urea Nitrogen 18 mg/dl (7-17); Creatinine Clearance Estimated 73 mL/min (50-200); Estimated Glomerular Filt Rate 55 ml/min (>60); GFR (African American) 67 ML/MIN (>60)
[2019-11-15 08:10] LABS: Anion Gap 12.5 mEq/L (5-15); Calcium 9.5 mg/dl (8.4-10.2); Carbon Dioxide 30 mmol/L (22.0-30.0); Glucose 178 mg/dl (74-100)
--- NOTE | 2019-11-15 09:00 | IR_ITS ---
APPROVED REPORT Patient Location: Outpatient Vegetable Tester: [place] Medina RT (R) PROCEDURES Left heart catheterization Left ventriculogram Selective coronary angiogram Selective engagement of the right internal mammary artery Drug-eluting stent deployment to the right internal mammary artery INDICATION Coronary artery disease, Classic angina pectoris, High risk abnormal Myoview, History of coronary bypass surgery Informed consent was obtained prior to the procedure. COMPLICATIONS NONE Estimated Blood Loss: LESS THAN 10 MLS TECHNIQUE One percent lidocaine used to anesthetize the right groin. The right femoral artery was accessed via the Seldinger technique and a 5 Spanish sheath was placed in the right femoral artery. A JL 4, JR4 catheter were used to perform left heart catheterization, left ventriculogram selective coronary angiography as well as selective engagement of the right internal mammary artery. At the end of the diagnostic angiogram therapeutic heparin was administered the 5 Spanish sheath was exchanged for a 6 Spanish sheath and a CALDERÓN guide catheter was used to intubate the right internal mammary artery. A choice floppy wire was placed distally and a 2.5 x 12 mm resolute ren stent was deployed at 20 isaac reducing the severe stenosis to 0%. WILFRIDO-3 flow was present before and after the procedure. At the end of the procedure the apparatus was removed the groin was reprepped gloves were changed sheath was removed and good hemostasis was achieved using Perclose device. Patient was transferred to the postop holding her in stable condition ANGIOGRAPHIC RESULTS The left main artery Normal The left anterior descending artery Has a proximal concentric 40 to 50% stenosis followed by a proximal stent which is widely patent. The LAD is a relatively small vessel and does not supply the apex. A large first diagonal artery originates proximal to the 50% stenosis and is larger in caliber than the LAD. This 3 mm vessel has a proximal 30% concentric stenosis The circumflex artery Nondominant normal The right coronary artery Large dominant and has a stent in the ostial segment with severe in-stent restenosis greater than 90%. The WANG ventriculogram reveals Normal 65% The left ventricular end-diastolic pressure 10 mmHg The right internal mammary artery has a mid vessel 90% stenosis followed by severe Alexander dilated poststenotic dilated segment. IMPRESSION Coronary artery disease as described above Successful stenting of the right internal mammary artery severe disease reduced to 0% with one drug-eluting stent Normal ejection fraction Normal left ventricular end-diastolic pressure Persistent moderate stenosis in the proximal LAD as described above PLAN 1. Dual antiplatelet therapy 2. Medical management 3. Cardiac rehabilitation 4. Avoidance of tobacco products 5. Should patient continue to experience angina pectoris consideration will be given to perform FFR to the LAD. I believe this lesion is best managed medically. Although it is possible to percutaneously stent this area. The Myoview is most likely along the distribution of this very large right coronary artery which does supply the apex Electronically signed by : Glen Betts, 11/15/2019 09:51:11
[2019-11-15 12:49] LABS: CATHL Activated Clotting Time 265 SEC (74-125)
--- NOTE | 2019-11-15 14:33 | HMH.PHACLD ---
Nichole Morales has received discharge medication counseling on the following medications: PATIENT IS TAKING CARVEDILOL 37.5 MG BID, ASPIRIN 81 MG DAILY, AND CLOPIDOGREL 75 MG DAILY. MD NOT WANTING TO START THOMAS/ARB AT THIS TIME AND PATIENT HAS ALLERGY TO STATINS.
== END 2019-11-15 13:50 | disposition home or self-care (01) ==
LOC: CATHLAB 07:21
PROVIDERS: PCP Family Medicine; Visit Provider Internal Medicine
DX: I25.118 Atherosclerotic heart disease of native coronary artery with other forms of angina pectoris; I25.728 Atherosclerosis of autologous artery coronary artery bypass graft(s) with other forms of angina pectoris; E78.2 Mixed hyperlipidemia; R94.30 Abnormal result of cardiovascular function study, unspecified; R94.39 Abnormal result of other cardiovascular function study; Z98.61 Coronary angioplasty status; I11.0 Hypertensive heart disease with heart failure; I50.32 Chronic diastolic (congestive) heart failure; Z95.1 Presence of aortocoronary bypass graft; Z88.0 Allergy status to penicillin; Z88.1 Allergy status to other antibiotic agents; Z79.02 Long term (current) use of antithrombotics/antiplatelets; Z79.4 Long term (current) use of insulin; E11.9 Type 2 diabetes mellitus without complications
CPT/HCPCS: 80048; 85025; 85347; 92943; 93459; 99152; 99153; C1725; C1760; C1769; C1876; C1894; C9607; J1644; Q9967

== ENCOUNTER 2019-11-16 16:30 | Emergency (ER) | payer MEDICARE, SELFPAY ==
[2019-11-16 16:41] VITALS: BP 168/76; PULSE 88; RESP 16; TEMP 36.6; O2SAT 98; BMI 32.8
--- NOTE | 2019-11-16 16:43 | HMH.EDGENADL ---
ED Disposition Clinical Impression: Visit for wound check Contusion Qualifiers: Encounter type: initial encounter Contusion area: thigh Laterality: right Qualified Code(s): S70.11XA - Contusion of right thigh, initial encounter Disposition: Home, Self-Care Condition on Discharge: Good Instructions: DI for Contusion Referrals: Glen Betts MD [Staff Physician] - As needed - Critical Care Critical Care Time: No Attestation: On 11/16/19, the high probability of a clinically significant, sudden or life threatening deterioration of the following system(s) required my full and direct attention, intervention and personal management. The time I documented below is in addition to time spent performing reported procedures but includes the following listed in this critical care notation. Medical Decision Making - Medical Records Medical records reviewed: Yes: I reviewed the patient's medical records. - Mitch Inquiry Pt receiving controlled substance: No Medical Decision Narrative: Patient with no signs of aneurysm, pseudoaneurysm. There is no palpable or pulsatile mass in the right groin. She has no areas of firmness or fluctuance that would suggest cellulitis or abscess. She has contusion in the upper leg which is tracking as expected through some of the soft tissues, now along the medial thigh. Again these tissues are soft with no increased warmth or signs of infection or vascular aberrancy. She has intact neurovascular status distally. Discharged home to follow-up as planned with her edge sawyer. Return for any worsening or new symptoms. General Adult HPI - General Stated complaint: Heart cath 11/15/19 Hemaoma today Time Seen by Provider: 11/16/19 16:43 Mode of Arrival: Ambulatory Source of Information: Patient Limitations: No Limitations - History of Present Illness HPI narrative: This is a 69-year-old female with a past medical history significant for hypertension hyperlipidemia, diabetes, coronary artery disease who presents to the emergency department for evaluation of increased bruising right upper leg after a cardiac catheterization yesterday. She initially described the problem as a mass , but there is no mass and is actually just the increased bruising along the medial aspect of her leg that she is concerned about. No fevers. Bleeding has improved from the access wound and she is now hemostatic though she did have some increased bleeding yesterday. No trauma. - Related Data Home Medications Medication Instructions Recorded Confirmed escitalopram oxalate 20 mg tablet 20 mg PO DAILY 06/21/17 10/21/19 insulin human U-100 NPH-regulr 30 unit SUB-Q DAILY 06/21/17 10/21/19 70-30 mix 100 unit/mL subcutaneous susp tizanidine 4 mg capsule 4 mg PO TID 06/21/17 10/21/19 aspirin 81 mg tablet,delayed 81 mg PO DAILY 11/22/17 10/21/19 release ezetimibe 10 mg tablet 10 mg PO DAILY 90 Days tab 11/22/17 10/21/19 fluticasone propionate 50 1 puff INTRANASAL DAILY 60 Days 11/22/17 10/21/19 mcg/actuation nasal spray,suspension Rahat Cit/D3/K/Mag Ox/Stron/Bor 2 each PO DAILY 02/05/18 10/21/19 [Prosteon Tablet] Milnacipran HCl [Savella] 50 mg PO BID 02/05/18 10/21/19 metformin 1,000 mg tablet,extended 1,000 mg PO BID tab 08/14/18 10/21/19 release 24hr ferrous sulfate 325 mg (65 mg 325 mg PO BID tab 07/23/19 10/21/19 iron) tablet furosemide 80 mg tablet 40 mg PO DAILY tab 07/23/19 10/21/19 magnesium 250 mg tablet 250 mg PO DAILY 07/23/19 10/21/19 lansoprazole 30 mg capsule,delayed 30 mg PO DAILY cap 11/06/19 11/06/19 release Previous Rx's Medication Instructions Recorded clopidogrel 75 mg tablet 75 mg PO QDAY #30 tab 06/03/19 carvedilol 25 mg tablet 37.5 mg PO BID #90 tab 07/23/19 buspirone 5 mg tablet 5 mg PO BID #60 tab 10/21/19 Allergies Allergy/AdvReac Type Severity Reaction Status Date / Time Ankppof-Jub-Qbq Reductase Allergy Severe Unknown Verified 11/06/19 14:28 I
[2019-11-16 17:03] VITALS: BP 146/67; PULSE 84; RESP 18; TEMP 36.7; O2SAT 96
== END 2019-11-16 17:05 | disposition home or self-care (01) ==
PROVIDERS: Emergency Provider Emergency Medicine; PCP Family Medicine
DX: L76.32 Postprocedural hematoma of skin and subcutaneous tissue following other procedure (principal); I10 Essential (primary) hypertension; E78.5 Hyperlipidemia, unspecified; F41.8 Other specified anxiety disorders; E11.9 Type 2 diabetes mellitus without complications; Z88.0 Allergy status to penicillin; Z88.8 Allergy status to other drugs, medicaments and biological substances; Z79.899 Other long term (current) drug therapy
CPT/HCPCS: 99281

== ENCOUNTER → 2019-11-18 13:10 | Outpatient (CLI) | payer MEDICARE, SELFPAY ==
--- NOTE | 2019-11-18 13:11 | CT_ITS ---
PROCEDURE: CT CHEST W CON CLINCAL INDICATION: abnormal chest x-ray Follow-up lung nodule, abnormal chest x-ray, solitary pulmonary nodule COMPARISON: CHESTW CT chest w con from 06/15/2017 XR CHEST 2V from 10/30/2019 TECHNIQUE: IV Contrast: 75ml Optiray 350 Axial images obtained with sagittal and coronal reformats. All CT scans at the facility use one or more dose reduction, viz: automated exposure control, ma/kV adjustment per patient size (including targeted exams where dose is matched to indication, i.e. head), or iterative reconstruction technique. FINDINGS: HEART AND MEDIASTINAL STRUCTURES: Prior CABG. Coronary artery calcifications are present. The heart size is normal. No mediastinal or hilar mass or adenopathy. LUNGS AND PLEURAL SPACES: There are few scattered areas of scarring. No lobar consolidation or collapse. No suspicious pulmonary nodules. Soft tissue density in the right lung base noted on the recent radiograph represents a prominent pericardial fat pad BONY STRUCTURES: No acute bony abnormalities apparent. UPPER ABDOMEN: Unremarkable. ADDITIONAL FINDINGS: No other significant abnormalities. IMPRESSION: No acute finding. Prior CABG. Prominent right pericardial fat pad. No suspicious nodules evident. Dictated by: Jay Figueroa MD 11/19/2019 13:45 Electronically signed by Jay Figueroa MD in [place] 11/19/2019 13:45
== END ==
PROVIDERS: PCP Family Medicine; Visit Provider Nurse Practitioner
DX: R93.89 Abnormal findings on diagnostic imaging of other specified body structures; R94.30 Abnormal result of cardiovascular function study, unspecified; R06.02 Shortness of breath; I25.118 Atherosclerotic heart disease of native coronary artery with other forms of angina pectoris; E10.8 Type 1 diabetes mellitus with unspecified complications; E78.2 Mixed hyperlipidemia; I51.89 Other ill-defined heart diseases; R60.0 Localized edema; Z95.5 Presence of coronary angioplasty implant and graft
CPT/HCPCS: 71260; Q9967

== ENCOUNTER → 2019-11-19 12:11 | Outpatient (CLI) | payer MEDICARE, SELFPAY ==
--- NOTE | 2019-11-19 12:15 | CA_ITS ---
APPROVED REPORT Septic Tank Setter: Radha Ramon RDCS Indications Leg Pain RECENT ANGIOGRAM POST 3 DAYS PAIN BRUISING Findings Groin: Right Negative Findings NEGATIVE FOR PSEUDO REPORTED TO OLLIE SCHMIDT Conclusion Small hematoma right groin No pseudoaneurysm or AVM Electronically signed by : Jay Figueroa MD 11/19/2019 17:53:27
== END ==
PROVIDERS: PCP Family Medicine; Visit Provider Urology
DX: I72.4 Aneurysm of artery of lower extremity (principal)
CPT/HCPCS: 93926

== ENCOUNTER → 2019-11-25 09:20 | Outpatient (CLI) | payer MEDICARE, SELFPAY ==
--- NOTE | 2019-11-25 09:26 | MM_ITS ---
PROCEDURE: MM DIG SCREENING MAMM BI W/CAD Digital Breast Tomosynthesis Included CLINICAL INDICATION: SCREENING There has been a previous lumpectomy left breast for malignancy with follow-up radiation therapy in 2013. There is a history of breast cancer patient's sister diagnosed at age 47. COMPARISON: [facility] DIG MAMM-SCREEN AARON W/CAD from 11/08/2016 [facility] MM Dig screening mamm BI w/CAD from 11/13/2017 DIG MAMM-SCREEN AARON from 11/15/2018 TECHNIQUE: Standard CC and MLO images and 3D Tomosynthesis was obtained. R2 CAD reviewed. FINDINGS: Again noted is fact that the left breast is smaller than the right. There is mild diffuse uniform skin thickening likely due to previous radiation therapy. [id number] diffuse scattered fibroglandular densities are seen throughout both breasts. There are few benign-appearing microcalcifications in each breast. There is more architectural distortion upper outer quadrant left breast than seen on the recent 3 mammograms. This probably represents continuing contraction of the lumpectomy scar but there definitely has been interval change compared to the most recent 2 mammograms 11/15/2018 and 11/13/2017. A blue patient should return for spot compression views and ultrasound for additional evaluation. The right breast is unremarkable. IMPRESSION: Fibrofatty parenchyma with postlumpectomy changes left breast and possible interval change at the lumpectomy site as discussed above BI-RAD Category: 0 Need Additional Imaging Evaluation FOLLOW-UP: IMM Immediate Follow-up Recommended (A letter has been sent to the patient regarding results of the study.) Dictated by: Dr. Tyler Sofia MD 11/27/2019 11:[address] Tyler Sofia MD in [place] 11/27/2019 11:13
== END ==
PROVIDERS: PCP Family Medicine; Visit Provider Nurse Practitioner
DX: Z12.31 Encounter for screening mammogram for malignant neoplasm of breast (principal)
CPT/HCPCS: 77063; 77067

== ENCOUNTER 2019-12-09 09:24 | Outpatient (RCR) | payer MEDICARE, SELFPAY | END 2020-03-19 13:42 | disposition home or self-care (01) | LOC: PT 09:24 | PROVIDERS: Visit Provider Internal Medicine | DX: Z95.5 Presence of coronary angioplasty implant and graft (principal) | CPT/HCPCS: 93798 ==

== ENCOUNTER → 2019-12-11 14:11 | Outpatient (CLI) | payer MEDICARE, SELFPAY ==
[2019-12-11 15:57] LABS: Alanine Aminotransferase 18 U/L (12-78); Albumin Level 4.7 g/dl (3.5-5.0); Alkaline Phosphatase 72 U/L (38-126); Aspartate Amino Transferase 26 U/L (14-36); Bilirubin,Direct 0.2 mg/dl (0.0-0.4); Bilirubin,Indirect 0.2 mg/dL (0.0-0.9); Bilirubin,Total 0.4 mg/dl (0.2-1.3); Bilirubin,Unconjugated 0.2 mg/dL (0.0-1.1); Cholesterol 195 mg/dl (140-200); HDL Cholesterol 64 mg/dl (40-60); Triglycerides 160 mg/dl (30-150); VLDL Cholesterol 32 mg/dL (0-40)
== END ==
PROVIDERS: Visit Provider Urology
DX: E10.8 Type 1 diabetes mellitus with unspecified complications (principal); E78.2 Mixed hyperlipidemia; I10 Essential (primary) hypertension; I25.118 Atherosclerotic heart disease of native coronary artery with other forms of angina pectoris; I27.20 Pulmonary hypertension, unspecified; R06.02 Shortness of breath; R07.89 Other chest pain; R94.30 Abnormal result of cardiovascular function study, unspecified; Z95.5 Presence of coronary angioplasty implant and graft
CPT/HCPCS: 36415; 80061; 80076

== ENCOUNTER → 2019-12-13 13:54 | Outpatient (CLI) | payer MEDICARE, SELFPAY ==
--- NOTE | 2019-12-13 14:03 | MM_ITS ---
PROCEDURE: MM DIG MAMM DX UNILAT LT CAD Digital Breast Tomosynthesis Included CLINICAL INDICATION: ABNORMAL SCREENING Follow-up asymmetric density, history of breast cancer COMPARISON: BL US BREAST-LT from 09/24/2013 [facility] MM Dig screening mamm BI w/CAD from 11/13/2017 DIG MAMM-SCREEN AARON from 11/15/2018 MM DIG SCREENING MAMM BI W/CAD from 11/25/2019 US BREAST LT COMPLETE from 12/13/2019 TECHNIQUE: Spot-compression views obtained with left breast ultrasound FINDINGS: The area of asymmetry in the upper outer aspect of the left breast does appear to compress out as fibroglandular tissue with no discrete mass apparent. Left breast ultrasound: There is an irregular area of decreased echogenicity in the 2 o'clock region of the left breast. This is without shadowing and measures approximately 13 x 6 mm . This may represent an area interstitial fluid or perhaps scarring as this is the area of patient's previous surgery. Six-month mammographic and sonographic follow-up suggested. IMPRESSION: BI-RAD Category: 3 Probably Benign Finding Short Term Follow-up FOLLOW-UP: 6M 6Month Follow-up (A letter has been sent to the patient regarding results of the study.) Dictated by: Jay Figueroa MD 12/13/2019 15:09 Electronically signed by Jay Figueroa MD in [place] 12/13/2019 15:09
== END ==
PROVIDERS: PCP Family Medicine; Visit Provider Internal Medicine Medical Oncology
DX: R92.8 Other abnormal and inconclusive findings on diagnostic imaging of breast (principal); C50.912 Malignant neoplasm of unspecified site of left female breast
CPT/HCPCS: 76641; 77061; 77065; G0279

== ENCOUNTER → 2020-01-08 11:32 | Outpatient (CLI) | payer MEDICARE, SELFPAY ==
[2020-01-08 12:11] LABS: Chloride 97 mmol/L (98-107); Potassium 4.4 mmoL/L (3.5-5.1); Sodium 137 mmol/L (136-145)
[2020-01-08 12:12] LABS: Basophils % 0.6 % (0.1-2.0); Eosinophils # 0.1 K/mm3 (0.0-0.4); Eosinophils % 1.6 % (0.1-12.0); Hematocrit 36.4 % (37.0-47.0); Hemoglobin 12.4 g/dL (12.2-16.2); Lymphocytes # 1.7 K/mm3 (0.7-4.5); Lymphocytes % 35.2 % (10-50); Mean Corpuscular Hemoglobin 28.8 pg (27.0-31.2); Mean Corpuscular Volume 84.6 fl (81-99); Mean Platelet Volume 7.4 fl (7.4-10.4); Monocytes # 0.3 K/mm3 (0.1-1.0); Monocytes % 6.2 % (1.7-9.3); Neutrophils # 2.8 K/mm3 (1.8-7.8); Neutrophils % 56.3 % (37.0-80.0); Platelet Count 366 K/mm3 (142-424); Red Blood Count 4.31 M/mm3 (4.20-5.40); Red Cell Distribution Width 14.1 % (11.5-17.5); White Blood Count 4.9 K/mm3 (4.8-10.8)
[2020-01-08 12:14] LABS: Anion Gap 13.4 mEq/L (5-15); Blood Urea Nitrogen 17 mg/dl (7-17); Calcium 9.6 mg/dl (8.4-10.2); Carbon Dioxide 31 mmol/L (22.0-30.0); Estimated Glomerular Filt Rate 55 ml/min (>60); GFR (African American) 67 ML/MIN (>60); Glucose 102 mg/dl (74-100)
[2020-01-08 12:42] LABS: Troponin I < 0.01 ng/ml (0.00-0.034)
== END ==
PROVIDERS: Visit Provider Urology
DX: I20.9 Angina pectoris, unspecified (principal); R06.00 Dyspnea, unspecified; R42 Dizziness and giddiness
CPT/HCPCS: 36415; 80048; 84484; 85025

== ENCOUNTER 2020-02-07 16:05 | Emergency (ER) | payer MEDICARE, SELFPAY ==
[2020-02-07] VITALS (7 sets, daily range): BP systolic 136–163; BP diastolic 59–75; PULSE 80–95; RESP 16–18; TEMP 36.8; O2SAT 95–99; BMI 33.3
--- NOTE | 2020-02-07 16:05 | ECG_ITS ---
APPROVED REPORT Exam: Resting ECG HR:84 bpm ECG Measurements Heart Rate 84 AXES WA 170 P 63 QRSd 82 QRS -1 QT 398 T 64 QTc 470 <Conclusion> Normal sinus rhythm Low voltage QRS Poor R Wave Progression Abnormal ECG Electronically signed by : Aristides Moreno, 02/09/2020 20:03:57
--- NOTE | 2020-02-07 16:19 | XR_ITS ---
PROCEDURE: XR CHEST 2V CLINICAL HISTORY: chest pain COMPARISON: DX CXR2V XR chest 2V from 07/16/2018 CR XR CHEST 2V from 05/21/2019 CR XR CHEST 2V from 10/30/[address] CHEST W CON from 11/18/2019 FINDINGS: Prior median sternotomy. Normal heart size The lungs are clear without infiltrates, suspicious nodules, or pleural effusions. Degenerative changes thoracic IMPRESSION: No acute findings. Dictated by: Jay Figueroa MD 02/07/2020 22:08 Jay Figueroa MD in [place] 02/07/2020 22:08
--- NOTE | 2020-02-07 16:19 | HMH.EDGENADL ---
ED Disposition Clinical Impression: Atypical chest pain CAD (coronary artery disease) Qualifiers: Coronary Disease-Associated Artery/Lesion type: bypass graft [place] vs. transplanted heart: [place] heart Associated angina: with unstable angina Qualified Code(s): I25.700 - Atherosclerosis of coronary artery bypass graft(s), unspecified, with unstable angina pectoris Disposition: Home, Self-Care Condition on Discharge: Fair Additional Instructions: You have been evaluated for chest pain. Please take 120 mg of isosorbide, instead of 60 mg daily. Follow-up with your primary care physician and Dr. Betts in clinic. Return to the emergency department if you have any new or worsening symptoms. Referrals: Maxx Matos MD [Primary Care Provider] - Time of Disposition: 19:09 - Critical Care Critical Care Time: No Attestation: On , the high probability of a clinically significant, sudden or life threatening deterioration of the following system(s) required my full and direct attention, intervention and personal management. The time I documented below is in addition to time spent performing reported procedures but includes the following listed in this critical care notation. Medical Decision Making - Medical Records Medical records reviewed: Yes: I reviewed the patient's medical records. - Mitch Inquiry Pt receiving controlled substance: No Vital Signs: 02/07/20 16:05 02/07/20 17:29 02/07/20 18:21 Temperature 98.3 F Temperature Source Oral Pulse Rate [Left Radial] 85 95 H 81 Respiratory Rate 18 Blood Pressure [Left Arm] 163/73 H 136/64 142/59 H Blood Pressure Mean [Left Arm] 103 88 86 Blood Pressure Source [Left Arm] Automatic Cuff Automatic Cuff Automatic Cuff Blood Pressure Position [Left Arm] Sitting Sitting Sitting 02 Sat by Pulse Oximetry 99 96 97 Oxygen Delivery Method Room Air Room Air Room Air 02/07/20 18:30 02/07/20 19:00 02/07/20 19:30 Temperature Temperature Source Pulse Rate [Left Radial] 83 80 83 Respiratory Rate 18 17 17 Blood Pressure [Left Arm] 154/73 H 144/69 H 150/71 H Blood Pressure Mean [Left Arm] 100 94 97 Blood Pressure Source [Left Arm] Automatic Cuff Automatic Cuff Automatic Cuff Blood Pressure Position [Left Arm] Supine Supine Supine 02 Sat by Pulse Oximetry 95 95 95 Oxygen Delivery Method Room Air Room Air Room Air - Lab Data Lab Results 02/07/20 16:20: WBC 6.6, RBC 4.05 L, Hgb 11.7 L, Hct 33.3 L, MCV 82.3, MCH 28.8, MCHC 35.0, RDW 13.5, Plt Count 371, MPV 7.5, Neut % (Auto) 51.6, Lymph % (Auto) 39.2, [place] % (Auto) 5.9, Eos % (Auto) 2.8, Baso % (Auto) 0.5, Neut # (Auto) 3.4, Lymph # (Auto) 2.6, [place] # (Auto) 0.4, Eos # (Auto) 0.2, Baso # (Auto) 0.0 02/07/20 16:20: Sodium 134 L, Potassium 4.3, Chloride 94 L, Carbon Dioxide 28, Anion Gap 16.3 H, BUN 21 H, Creatinine 0.90, Estimated Creat Clear 74, Estimated GFR 62, Est GFR ( Amer) 75, Glucose 104 H, Calcium 9.5, Troponin I < 0.01 02/07/20 16:20: NT-Pro-B Natriuret Pep 159 H Result diagrams: 02/07/20 16:20 02/07/20 16:20 Orders (Tests/Meds): ED MEDICATIONS Discontinued Medications Generic Name Dose Route Start Last Admin Trade Name Jigna PRN Reason Stop Dose Admin Aspirin 243 mg 02/07/20 16:26 02/07/20 16:28 Aspirin 81mg Chewable Tablet PO 02/07/20 16:27 243 mg ONCE ONE Administration ORDERS Category Date Time Status CXR 2 view (NOT portable) [XR chest 2V] Stat Exams 02/07/20 16:19 Taken Troponin I Q3H Lab 02/07/20 19:28 Received Troponin I Q3H Lab 02/07/20 22:30 Ordered - JO Score for Non-Stemi Age of Patient: 60-69 years old Heart Rate: 70-89 bpm Systolic Blood Pressure: 160-199 mmHg Serum Creatinine: 0.80-1.19 mg/dl CHF [place] Class: I-No CHF Other Risk Factors: None Non-Stemi Risk Score: 84 Medical Decision Narrative: In summary this is a 69-year-old female with history of CAD and hypertension presenting to the emergency department with chest pain. Luciano
[2020-02-07 16:33] LABS: Basophils % 0.5 % (0.1-2.0); Eosinophils # 0.2 K/mm3 (0.0-0.4); Eosinophils % 2.8 % (0.1-12.0); Hematocrit 33.3 % (37.0-47.0); Hemoglobin 11.7 g/dL (12.2-16.2); Lymphocytes # 2.6 K/mm3 (0.7-4.5); Lymphocytes % 39.2 % (10-50); Mean Corpuscular Hemoglobin 28.8 pg (27.0-31.2); Mean Corpuscular Volume 82.3 fl (81-99); Mean Platelet Volume 7.5 fl (7.4-10.4); Monocytes # 0.4 K/mm3 (0.1-1.0); Monocytes % 5.9 % (1.7-9.3); Neutrophils # 3.4 K/mm3 (1.8-7.8); Neutrophils % 51.6 % (37.0-80.0); Platelet Count 371 K/mm3 (142-424); Red Blood Count 4.05 M/mm3 (4.20-5.40); Red Cell Distribution Width 13.5 % (11.5-17.5); White Blood Count 6.6 K/mm3 (4.8-10.8)
[2020-02-07 16:36] LABS: Chloride 94 mmol/L (98-107); Potassium 4.3 mmoL/L (3.5-5.1); Sodium 134 mmol/L (136-145)
[2020-02-07 16:39] LABS: Anion Gap 16.3 mEq/L (5-15); Blood Urea Nitrogen 21 mg/dl (7-17); Calcium 9.5 mg/dl (8.4-10.2); Carbon Dioxide 28 mmol/L (22.0-30.0); Creatinine Clearance Estimated 74 mL/min (50-200); Estimated Glomerular Filt Rate 62 ml/min (>60); GFR (African American) 75 ML/MIN (>60); Glucose 104 mg/dl (74-100)
[2020-02-07 16:49] LABS: NT Pro Brain Natriuretic Pep. 159 pg/mL (0-125)
[2020-02-07 16:52] LABS: Troponin I < 0.01 ng/ml (0.00-0.034)
--- NOTE | 2020-02-07 17:00 | PC.NURSE ---
pt to rad.
--- NOTE | 2020-02-07 18:14 | PC.NURSE ---
Dr Betts paged.
--- NOTE | 2020-02-07 18:14 | PC.NURSE ---
Dr Betts returned
--- NOTE | 2020-02-07 18:17 | PC.NURSE ---
square dance caller for Dr Carlo painting.
--- NOTE | 2020-02-07 19:04 | PC.NURSE ---
dr. mcdaniel paged again at this time
--- NOTE | 2020-02-07 19:06 | PC.NURSE ---
HENRY DIALLO speaking with Dr. Betts.
--- NOTE | 2020-02-07 20:12 | PC.NURSE ---
called lab to check on status of troponin - lab stated it should be resulted soon
[2020-02-07 20:13] LABS: Troponin I < 0.01 ng/ml (0.00-0.034)
== END 2020-02-07 20:26 | disposition home or self-care (01) ==
PROVIDERS: Emergency Provider Emergency Medicine; PCP Family Medicine
DX: I25.700 Atherosclerosis of coronary artery bypass graft(s), unspecified, with unstable angina pectoris (principal); I10 Essential (primary) hypertension; E78.5 Hyperlipidemia, unspecified; Z95.1 Presence of aortocoronary bypass graft; E11.9 Type 2 diabetes mellitus without complications; F41.8 Other specified anxiety disorders; M81.0 Age-related osteoporosis without current pathological fracture; M79.7 Fibromyalgia; Z79.4 Long term (current) use of insulin; Z79.84 Long term (current) use of oral hypoglycemic drugs; Z79.899 Other long term (current) drug therapy
CPT/HCPCS: 36415; 71046; 80048; 83880; 84484; 85025; 93005; 99284

== ENCOUNTER → 2020-03-03 09:35 | Outpatient (CLI) | payer MEDICARE, SELFPAY ==
[2020-03-03 12:10] LABS: Bilirubin,Unconjugated 0.3 mg/dL (0.0-1.1)
[2020-03-03 12:11] LABS: Alanine Aminotransferase 24 U/L (12-78); Albumin Level 4.2 g/dl (3.5-5.0); Alkaline Phosphatase 69 U/L (38-126); Aspartate Amino Transferase 31 U/L (14-36); Bilirubin,Indirect 0.3 mg/dL (0.0-0.9); Bilirubin,Total 0.3 mg/dl (0.2-1.3); Chol/HDL Ratio 1.8 (1-3.5); Cholesterol 116 mg/dl (140-200); HDL Cholesterol 64 mg/dl (40-60); Total Protein,Serum 6.8 g/dl (6.3-8.2); Triglycerides 121 mg/dl (30-150); VLDL Cholesterol 24 mg/dL (0-40)
[2020-03-03 12:22] LABS: Direct LDL Cholesterol 43.92 mg/dL (100-129)
== END ==
PROVIDERS: Visit Provider Urology
DX: E11.9 Type 2 diabetes mellitus without complications (principal); E78.5 Hyperlipidemia, unspecified; I10 Essential (primary) hypertension; I25.10 Atherosclerotic heart disease of native coronary artery without angina pectoris; I27.20 Pulmonary hypertension, unspecified; I51.89 Other ill-defined heart diseases; R06.02 Shortness of breath; R07.9 Chest pain, unspecified; R60.9 Edema, unspecified; Z95.1 Presence of aortocoronary bypass graft; Z95.5 Presence of coronary angioplasty implant and graft
CPT/HCPCS: 36415; 80061; 80076

== ENCOUNTER → 2020-03-31 07:50 | Outpatient (CLI) | payer MEDICARE, SELFPAY ==
--- NOTE | 2020-03-31 07:51 | CA_ITS ---
APPROVED REPORT EXAM: Comprehensive 2D, Doppler, and color-flow Echocardiogram Assembler Chassis: Marlene Martinez CRT Ht: 5 ft 4 in Wt: 201lbs BSA: 1.96 BP: 138/70 mmHg Indications: Chest Pain, Shortness of Breath, Peripheral Edema, CAD, Hyperlipidemia, Hypertension/HDD, CABG 2D Dimensions LVOT 1.72 cm (M/F) 1.5-2.5 M-Mode Dimensions RVDd 2.35 cm (0.9-2.6) LA Diam 4.24 cm (1.9-4.0) LVDd 4.41 cm (3.5-5.7) Ao Diam 3.27 cm (2.0-3.7) LVDs 2.80 cm (3.5-5.7) IVSd 1.22 cm (0.6-1.1) PWd 0.78 cm (0.6-1.1) EF (Teich) 66.40% FS 36.50% EDV (Teich) 88.20 mL ESV (Teich) 29.60 mL LV Diastology E Decel Time 150.00 (160-240 msec) E/A Ratio 1.11 MED E' 6.50 (< 7 cm/sec) E'/MED E' Ratio 19.49 (>14) LAT E' 8.60 (<10 cm/sec) E/LAT E' Ratio 14.73 (>14) Aortic Valve LVOT Max 309.00 (70-110 cm/s) LVOT VTI 73.07 cm AoV Peak Daron. 209.00 (50-130 cm/s) AI PHT 369.00 ms AO Peak GR. 17.50 mmHg AO Mean GR. 8.70 (<5 mmHg) AO VTI 44.86 (18-25 cm) HAIR (VTI) 3.78 (2.5-4.5 cm2) Mitral Valve MV E Max Daron. 127.00 (40-130 cm/s) MV A Velocity 114.00 (40-130 cm/s) E/A Ratio 1.11 MV Decel. Time 150.00 (160-240 ms) MV PHT 44.00 ms Tricuspid Valve TR P. Velocity 301.00 cm/s RAP Estimate 10.00 mmHg RVSP 46.20 mmHg Left Ventricle Left atrium is mildly enlarged, left ventricle is normal size, mild concentric left ventricular hypertrophy, visually estimated ejection fraction 55% with no regional wall motion abnormality, grade 1 diastolic dysfunction seen with tissue Doppler evidence of raise left atrial pressure. Right Ventricle Right atrium and right ventricular normal size and contractility. Aortic Valve Aortic valve is thickened and calcified there is no aortic stenosis, there is mild aortic insufficiency. Mitral Valve Mitral valve is grossly normal, there is mild mitral regurgitation. Tricuspid Valve Tricuspid valve is grossly normal, there is mild tricuspid regurgitation, tricuspid regurgitation jet velocity is inadequate for calculation of the right ventricular systolic pressure. Pulmonic Valve Pulmonic valve is poorly visualized. Great Vessels Aortic root is normal size. Pericardium No significant pericardial effusion noted. Conclusion 1. Melena left atrium, normal left ventricular size, mild concentric left ventricular hypertrophy, visually estimated ejection fraction 55% with no regional wall motion abnormality, grade 1 diastolic dysfunction seen with tissue Doppler evidence of raise left atrial pressure. 2. Thickened and calcified aortic valve without aortic stenosis, mild aortic insufficiency. 3. Mild mitral and tricuspid regurgitation. 4. No significant pericardial effusion noted. Electronically signed by : Chad Sullivan, 03/31/2020 19:44:59
--- NOTE | 2020-03-31 07:51 | CA_ITS ---
APPROVED REPORT Radiologic Technology Program Director: Liliana Rush RVT Study Quality: Good Indications: HTN Risk Factors Hypertension Diabetes Renal Artery Doppler Origin (R) 124.2/ cm/sec Proximal (R) 137.7/ cm/sec Mid (R) 96.3/ cm/sec Distal (R) 119.7/ cm/sec Renal Aorta Ratio (R) 1.04 Segmental A. (R) 58.1/7.8 cm/sec RI: 0.86 Segmental A. Sup (R) 58.1/7.8 cm/sec Segmental A. Mid (R) 39.2/4.7 cm/sec Segmental A. Inf (R) 32.4/5.8 cm/sec Origin (L) 81.4/ cm/sec Mid (L) 138.7/ cm/sec Distal (L) 136.8/ cm/sec Renal Aorta Ratio (L) 1.05 Segmental A. (L) 76.7/20.6 cm/sec RI: 0.73 Segmental A. Sup (L) 76.7/20.6 cm/sec Segmental A. Mid (L) 54.9/6.7 cm/sec Segmental A. Inf (L) 32.7/3.9 cm/sec Renal Measurements Kidney Size (R) 11.1x7.2 cm Cortical Thickness (R) 1.2 cm Kidney Size (L) 10.6x6.4 cm Cortical Thickness (L) 1.4 cm Findings Study suggests no evidence of stenosis of the bilateral renal arteries. 1.7 x 1.5cm cyst upper pole right kidney. 2.2 X 2.5 cm cyst lower pole of left kidney. Conclusion Study suggests no evidence of stenosis of the bilateral renal arteries. 1.7 x 1.5cm cyst upper pole right kidney. 2.2 X 2.5 cm cyst lower pole of left kidney. Electronically signed by : Jay Figueroa MD 03/31/2020 15:43:05
[2020-03-31 11:31] LABS: Chloride 97 mmol/L (98-107)
[2020-03-31 11:32] LABS: Potassium 5.5 mmoL/L (3.5-5.1); Sodium 135 mmol/L (136-145)
[2020-03-31 11:34] LABS: Blood Urea Nitrogen 24 mg/dl (7-17); Estimated Glomerular Filt Rate 49 ml/min (>60); GFR (African American) 60 ML/MIN (>60)
[2020-03-31 11:35] LABS: Anion Gap 12.5 mEq/L (5-15); Calcium 9.7 mg/dl (8.4-10.2); Carbon Dioxide 31 mmol/L (22.0-30.0); Glucose 149 mg/dl (74-100)
== END ==
PROVIDERS: PCP Family Medicine; Visit Provider Urology
DX: E10.8 Type 1 diabetes mellitus with unspecified complications (principal); E78.2 Mixed hyperlipidemia; I10 Essential (primary) hypertension; I25.700 Atherosclerosis of coronary artery bypass graft(s), unspecified, with unstable angina pectoris; I27.20 Pulmonary hypertension, unspecified; R06.02 Shortness of breath; R07.89 Other chest pain; R60.0 Localized edema; Z95.1 Presence of aortocoronary bypass graft; Z95.5 Presence of coronary angioplasty implant and graft
CPT/HCPCS: 36415; 80048; 93306; 93976

== ENCOUNTER → 2020-04-07 10:01 | Outpatient (CLI) | payer MEDICARE, SELFPAY ==
[2020-04-07 11:03] LABS: Chloride 92 mmol/L (98-107)
[2020-04-07 11:04] LABS: Potassium 5.3 mmoL/L (3.5-5.1); Sodium 131 mmol/L (136-145)
[2020-04-07 11:06] LABS: Blood Urea Nitrogen 32 mg/dl (7-17); Estimated Glomerular Filt Rate 41 ml/min (>60); GFR (African American) 49 ML/MIN (>60)
[2020-04-07 11:07] LABS: Anion Gap 16.3 mEq/L (5-15); Calcium 9.6 mg/dl (8.4-10.2); Carbon Dioxide 28 mmol/L (22.0-30.0); Glucose 151 mg/dl (74-100)
== END ==
PROVIDERS: Visit Provider Urology
DX: E11.9 Type 2 diabetes mellitus without complications (principal); E78.5 Hyperlipidemia, unspecified; I10 Essential (primary) hypertension; I25.10 Atherosclerotic heart disease of native coronary artery without angina pectoris; I27.20 Pulmonary hypertension, unspecified; R06.02 Shortness of breath; R07.9 Chest pain, unspecified; R60.9 Edema, unspecified; Z95.1 Presence of aortocoronary bypass graft; Z95.5 Presence of coronary angioplasty implant and graft; Z79.4 Long term (current) use of insulin
CPT/HCPCS: 36415; 80048

== ENCOUNTER → 2020-05-28 08:36 | Outpatient (CLI) | payer MEDICARE, SELFPAY ==
--- NOTE | 2020-05-28 09:14 | XR_ITS ---
PROCEDURE: XR CHEST 2V CLINICAL HISTORY: shortness of breath COMPARISON: CR XR CHEST 2V from 05/21/2019 CR XR CHEST 2V from 10/30/[address] CHEST W CON from 11/18/2019 CR XR CHEST 2V from 02/07/2020 FINDINGS: Median sternotomy wire noted superiorly. Normal heart size. Pericardial fat pad on the right. The lungs are clear without infiltrates, suspicious nodules, or pleural effusions. No acute bony abnormalities. IMPRESSION: No acute findings. Dictated by: Jay Figueroa MD 05/28/2020 13:57 Jay Figueroa MD in [place] 05/28/2020 13:57
[2020-05-28 09:35] LABS: Basophils % 0.7 % (0.1-2.0); Eosinophils # 0.1 K/mm3 (0.0-0.4); Eosinophils % 1.1 % (0.1-12.0); Hematocrit 36.1 % (37.0-47.0); Hemoglobin 11.9 g/dL (12.2-16.2); Lymphocytes # 1.4 K/mm3 (0.7-4.5); Lymphocytes % 29.6 % (10-50); Mean Corpuscular HGB Conc 32.8 g/dL (31.8-35.4); Mean Corpuscular Hemoglobin 28.9 pg (27.0-31.2); Mean Platelet Volume 7.4 fl (7.4-10.4); Monocytes # 0.2 K/mm3 (0.1-1.0); Monocytes % 5.3 % (1.7-9.3); Neutrophils # 2.9 K/mm3 (1.8-7.8); Neutrophils % 63.4 % (37.0-80.0); Platelet Count 334 K/mm3 (142-424); Red Blood Count 4.11 M/mm3 (4.20-5.40); Red Cell Distribution Width 14.1 % (11.5-17.5); White Blood Count 4.6 K/mm3 (4.8-10.8)
[2020-05-28 09:45] LABS: Chloride 92 mmol/L (98-107); Sodium 129 mmol/L (136-145)
[2020-05-28 09:48] LABS: Blood Urea Nitrogen 20 mg/dl (7-17); Estimated Glomerular Filt Rate 55 ml/min (>60); GFR (African American) 67 ML/MIN (>60)
[2020-05-28 09:49] LABS: Calcium 9.7 mg/dl (8.4-10.2); Carbon Dioxide 28 mmol/L (22.0-30.0); Glucose 219 mg/dl (74-100)
[2020-05-28 09:56] LABS: NT Pro Brain Natriuretic Pep. 263 pg/mL (0-125)
== END ==
PROVIDERS: PCP Family Medicine; Visit Provider Urology
DX: R06.02 Shortness of breath (principal); T14.8XXA Other injury of unspecified body region, initial encounter; I25.10 Atherosclerotic heart disease of native coronary artery without angina pectoris
CPT/HCPCS: 36415; 71046; 80048; 83880; 85025

== ENCOUNTER → 2020-06-11 10:04 | Outpatient (CLI) | payer MEDICARE, SELFPAY ==
[2020-06-11 12:25] LABS: Chloride 95 mmol/L (98-107); Potassium 4.8 mmoL/L (3.5-5.1); Sodium 133 mmol/L (136-145)
[2020-06-11 12:28] LABS: Anion Gap 15.8 mEq/L (5-15); Blood Urea Nitrogen 21 mg/dl (7-17); Carbon Dioxide 27 mmol/L (22.0-30.0); Estimated Glomerular Filt Rate 55 ml/min (>60); GFR (African American) 67 ML/MIN (>60)
[2020-06-11 12:29] LABS: Calcium 9.4 mg/dl (8.4-10.2); Glucose 227 mg/dl (74-100)
== END ==
PROVIDERS: Visit Provider Nurse Practitioner Family
DX: E11.9 Type 2 diabetes mellitus without complications (principal); E78.5 Hyperlipidemia, unspecified; I10 Essential (primary) hypertension; I25.10 Atherosclerotic heart disease of native coronary artery without angina pectoris; I27.20 Pulmonary hypertension, unspecified; I51.89 Other ill-defined heart diseases; R06.02 Shortness of breath; R94.30 Abnormal result of cardiovascular function study, unspecified; Z95.1 Presence of aortocoronary bypass graft
CPT/HCPCS: 36415; 80048

== ENCOUNTER → 2020-06-18 13:22 | Outpatient (CLI) | payer MEDICARE, SELFPAY ==
--- NOTE | 2020-06-18 13:26 | MM_ITS ---
PROCEDURE: MM DIG MAMM DX UNILAT LT CAD Digital Breast Tomosynthesis Included CLINICAL INDICATION: 6 MONTH F/U COMPARISON: MG DIG MAMM-SCREEN AARON from 11/15/2018 MG MM DIG SCREENING MAMM BI W/CAD from 11/25/2019 MG MM DIG MAMM DX UNILAT LT CAD from 12/13/2019 US US BREAST LT COMPLETE from 06/18/2020 TECHNIQUE: Standard CC and MLO images and 3D Tomosynthesis was obtained. R2 CAD reviewed. Spot compression MLO and CC views were obtained as well r FINDINGS: The subtle asymmetric fibroglandular densities are seen but appear most consistent with postsurgical scarring at this time and has no suspicious characteristics. There are few scattered benign-appearing microcalcifications. Mild uniform skin thickening again noted. Ultrasound performed the same date shows a irregular hypoechoic area most consistent with post lumpectomy scarring. There is a normal appearing node in the axilla. IMPRESSION: Probable postlumpectomy scarring as seen on both the spot mammogram views and ultrasound study and recommend the patient return to normal yearly screening schedule BI-RAD Category: 2 Benign Finding(s) FOLLOW-UP: 6M 6Month Follow-up to return to normal screening schedule (A letter has been sent to the patient regarding results of the study.) Dictated by: Dr. Tyler Sofia MD 06/27/2020 15:34 Dr. Tyler Sofia MD in [place] 06/27/2020 15:34
--- NOTE | 2020-06-18 14:17 | US_ITS ---
PROCEDURE: US BREAST LT COMPLETE CLINICAL INDICATION: 6 MTH F/U LT BREAST DENSITY The patient continue with yearly screening mammography COMPARISON: US US BREAST LT COMPLETE from 12/13/2019 FINDINGS: Again is an irregular hypoechoic lesion at the 2 o'clock position outer breast similar in size and appearance to the previous study 12/13/2019. There is no acoustic shadowing. It measures approximately 1.1 x 1 point 0 cm in size. There is a normal appearing node in the axilla. IMPRESSION: Ultrasound findings stable and unchanged from the previous study and most consistent with postlumpectomy scarring and recommend patient return to normal yearly screening mammography Dictated by: Dr. Tyler Sofia MD 06/27/2020 15:37 Dr. Tyler Sofia MD in [place] 06/27/2020 15:37
== END ==
PROVIDERS: PCP Family Medicine; Visit Provider Internal Medicine Medical Oncology
DX: C50.912 Malignant neoplasm of unspecified site of left female breast (principal); R92.8 Other abnormal and inconclusive findings on diagnostic imaging of breast
CPT/HCPCS: 76641; 77061; 77065; G0279

== ENCOUNTER → 2020-06-22 08:56 | Outpatient (CLI) | payer MEDICARE, SELFPAY ==
[2020-06-22 11:11] LABS: Coronavirus 19 IgG Antibody Negative (Negative); Coronavirus 19 IgM Antibody Negative (Negative)
== END ==
PROVIDERS: Visit Provider Ophthalmology
DX: Z01.812 Encounter for preprocedural laboratory examination (principal); Z11.59 Encounter for screening for other viral diseases; H25.11 Age-related nuclear cataract, right eye
CPT/HCPCS: 36415; 86328

== ENCOUNTER 2020-06-23 07:45 | Day surgery (SDC) | payer MEDICARE, SELFPAY ==
[2020-06-17 08:49] VITALS: BMI 34.7
[2020-06-23 08:37] VITALS: BP 181/74; PULSE 74; RESP 18; TEMP 36.4; O2SAT 97
[2020-06-23 08:46] LABS: POC Glucose,Bedside 218 (70-110)
[2020-06-23 09:39] VITALS: BP 170/77; PULSE 71; RESP 20; O2SAT 99
[2020-06-23 09:44] VITALS: BP 151/66; PULSE 69; RESP 20; O2SAT 99
[2020-06-23 09:49] VITALS: BP 162/68; PULSE 69; RESP 18; O2SAT 99
[2020-06-23 09:54] VITALS: BP 158/74; PULSE 70; RESP 18; O2SAT 99
[2020-06-23 09:58] VITALS: BP 146/94; PULSE 70; RESP 18; TEMP 36.3; O2SAT 99
== END 2020-06-23 10:08 | disposition hospice, home (50) ==
LOC: OR 07:46
PROVIDERS: PCP Family Medicine; Visit Provider Ophthalmology
PROC: (CPT 66984; principal; 2020-06-23 09:30)
DX: H25.811 Combined forms of age-related cataract, right eye (principal); H02.839 Dermatochalasis of unspecified eye, unspecified eyelid; I25.10 Atherosclerotic heart disease of native coronary artery without angina pectoris; E78.5 Hyperlipidemia, unspecified; I10 Essential (primary) hypertension; E11.9 Type 2 diabetes mellitus without complications; Z95.1 Presence of aortocoronary bypass graft; Z88.0 Allergy status to penicillin; Z88.8 Allergy status to other drugs, medicaments and biological substances; Z79.899 Other long term (current) drug therapy; Z79.82 Long term (current) use of aspirin; Z79.4 Long term (current) use of insulin
CPT/HCPCS: 66984; 82962; V2632

== ENCOUNTER → 2020-07-06 07:26 | Outpatient (CLI) | payer MEDICARE, SELFPAY ==
[2020-07-06 09:27] LABS: Coronavirus 19 IgG Antibody Negative (Negative); Coronavirus 19 IgM Antibody Negative (Negative)
== END ==
PROVIDERS: Visit Provider Ophthalmology
DX: Z01.812 Encounter for preprocedural laboratory examination (principal); Z20.822 Contact with and (suspected) exposure to COVID-19; H25.12 Age-related nuclear cataract, left eye
CPT/HCPCS: 36415; 86328

== ENCOUNTER 2020-07-07 06:36 | Day surgery (SDC) | payer MEDICARE, SELFPAY ==
[2020-06-30 14:13] VITALS: BMI 34.7
[2020-07-07] VITALS (8 sets, daily range): BP systolic 144–171; BP diastolic 71–77; PULSE 71–81; RESP 16–20; TEMP 36.4–36.5; O2SAT 97–99
[2020-07-07 07:11] LABS: POC Glucose,Bedside 163 (70-110)
== END 2020-07-07 08:39 | disposition home or self-care (01) ==
LOC: OR 06:37
PROVIDERS: PCP Family Medicine; Visit Provider Ophthalmology
DX: H25.813 Combined forms of age-related cataract, bilateral (principal); H53.149 Visual discomfort, unspecified; H02.839 Dermatochalasis of unspecified eye, unspecified eyelid; E11.9 Type 2 diabetes mellitus without complications; I10 Essential (primary) hypertension; F41.9 Anxiety disorder, unspecified; M19.90 Unspecified osteoarthritis, unspecified site; F32.9 Major depressive disorder, single episode, unspecified; Z88.0 Allergy status to penicillin; Z88.8 Allergy status to other drugs, medicaments and biological substances; Z79.82 Long term (current) use of aspirin; Z79.899 Other long term (current) drug therapy
CPT/HCPCS: 66984; 82962; V2632

== ENCOUNTER 2020-07-26 09:55 | Emergency (ER) | payer MEDICARE, SELFPAY ==
[2020-07-26 10:19] VITALS: BP 165/76; PULSE 77; RESP 16; TEMP 36.3; O2SAT 98; BMI 35.0
[2020-07-26 10:26] VITALS: BP 159/79; PULSE 80; RESP 18; TEMP 37.1
[2020-07-26 10:26] LABS: UTC Strep Screen (Rapid) Positive (Negative)
--- NOTE | 2020-07-26 10:26 | HMH.EDUTC ---
[facility] [place] Disposition Clinical Impression: Strep throat, Exposure to COVID-19 virus Disposition: Home, Self-Care Condition on Discharge: Good Instructions: Throat Culture, DI for Strep Throat Additional Instructions: Drink plenty of fluids. Take tylenol for pain or fever. Return if you begin to have difficulty breathing. Follow up with your regular doctor. GO TO THE ER FOR ANY WORSENING SYMPTOMS Prescriptions: Azithromycin [Z-Ed 250mg Tab*] 250 mg PO UD DOSE PK #6 tab Transmission Status: Received by [id number] Referrals: Maxx Matos MD [Primary Care Provider] - Time of Disposition: 10:39 Medical Decision Making - Medical Records Medical records reviewed: No: I reviewed the patient's medical records. - Mitch Inquiry Pt receiving controlled substance: No Vital Signs: 07/26/20 10:19 07/26/20 10:26 Temperature 97.4 F L 98.7 F Temperature Source Oral Pulse Rate 80 Pulse Rate [Right] 77 Respiratory Rate 16 18 Blood Pressure 159/79 H Blood Pressure [Right Arm] 165/76 H Blood Pressure Mean [Right Arm] 105 Blood Pressure Source [Right Arm] Automatic Cuff Blood Pressure Position [Right Arm] Sitting 02 Sat by Pulse Oximetry 98 Oxygen Delivery Method Room Air - Lab Data Lab results reviewed: Yes: I reviewed the patient's lab results. Lab Results 07/26/20 10:24: Strep Scn Rapid Clinic Positive A Orders (Tests/Meds): ORDERS Category Date Time Status Covid-19 Nasal PCR ([facility]) Routine Lab 07/26/20 10:15 Received [facility] [place] HPI - General Stated complaint: sore throat, headache, ear ache Time Seen by Provider: 07/26/20 10:20 Mode of Arrival: Ambulatory Source of Information: Patient Limitations: No Limitations Description of Symptoms (Recalled from Triage Doc. by RN): Pt c/o sore throat,swollen glands, slight cough, non-productive cough since Monday HEENT Symptoms (Recalled from RN notes): Yes (sore thorat, swollen glands) Resp Symptoms (Recalled from RN notes): No Skin Symptoms (Recalled from RN notes): No MS Symptoms (Recalled from RN notes): No Functional Status (Recalled from RN notes): na - History of Present Illness Provider Complaint: She states that she has had a sore throat, bilateral ear pain and malaise for the past 2 days. She denies any known exposure to covid. She thinks that she has strep throat because she cares for her grand children and several of them have had strep recently. - Related Data Home Medications Medication Instructions Recorded Confirmed insulin human U-100 NPH-regulr 25 unit SUB-Q BID 06/21/17 07/07/20 70-30 mix 100 unit/mL subcutaneous susp tizanidine 4 mg capsule 4 mg PO TID 06/21/17 07/07/20 aspirin 81 mg tablet,delayed 81 mg PO DAILY 11/22/17 07/07/20 release ezetimibe 10 mg tablet 10 mg PO DAILY 90 Days tab 11/22/17 07/07/20 Milnacipran HCl [Savella] 50 mg PO BID 02/05/18 07/07/20 metformin 1,000 mg tablet,extended 1,000 mg PO BID tab 08/14/18 07/07/20 release 24hr magnesium 250 mg tablet 500 mg PO DAILY 07/23/19 07/07/20 lansoprazole 30 mg capsule,delayed 30 mg PO DAILY cap 11/06/19 07/07/20 release aripiprazole 2 mg tablet 2 mg PO DAILY tab 01/08/20 07/07/20 Clopidogrel Bisulfate [Plavix] 75 mg PO QDAY 06/17/20 07/07/20 Escitalopram Oxalate 20 mg PO DAILY 06/17/20 07/07/20 Evolocumab [Repatha SureClick] 140 mg SQ Q2W 06/17/20 07/07/20 Furosemide [Furosemide 20mg Tab*] 20 mg PO DAILY 06/17/20 07/07/20 Ranolazine [Ranolazine ER] 500 mg PO BID 06/17/20 07/07/20 carvediloL [Carvedilol 25mg Tab] 50 mg PO BID 06/17/20 07/07/20 lisinopriL [Prinivil 20mg Tablet] 20 mg PO DAILY 07/07/20 07/07/20 Previous Rx's Medication Instructions Recorded Azithromycin [Z-Ed 250mg Tab*] 250 mg PO UD DOSE PK #6 tab 07/26/20 Allergies Allergy/AdvReac Type Severity Reaction Status Date / Time Pmnrplx-Wqh-Xea Reductase Allergy Severe Unknown Verified 07/26/20 10:24 Inhibitor allergy reaction Penicilli
== END 2020-07-26 10:48 | disposition home or self-care (01) ==
PROVIDERS: Emergency Provider Nurse Practitioner Family; PCP Family Medicine
DX: Z20.822 Contact with and (suspected) exposure to COVID-19 (principal); J02.0 Streptococcal pharyngitis; E11.9 Type 2 diabetes mellitus without complications; I10 Essential (primary) hypertension; E78.5 Hyperlipidemia, unspecified; I25.10 Atherosclerotic heart disease of native coronary artery without angina pectoris; F41.8 Other specified anxiety disorders; M81.0 Age-related osteoporosis without current pathological fracture; Z79.899 Other long term (current) drug therapy; Z88.0 Allergy status to penicillin; Z88.8 Allergy status to other drugs, medicaments and biological substances
CPT/HCPCS: G0463; 87880; 99202; U0003

== ENCOUNTER → 2020-08-29 07:36 | Outpatient (CLI) | payer MEDICARE, SELFPAY ==
[2020-08-29 08:21] LABS: Basophils % 0.4 % (0.1-2.0); Eosinophils # 0.1 K/mm3 (0.0-0.4); Eosinophils % 1.5 % (0.1-12.0); Hematocrit 36.5 % (37.0-47.0); Hemoglobin 12.1 g/dL (12.2-16.2); Lymphocytes # 1.8 K/mm3 (0.7-4.5); Lymphocytes % 33.7 % (10-50); Mean Corpuscular HGB Conc 33.1 g/dL (31.8-35.4); Mean Corpuscular Hemoglobin 28.6 pg (27.0-31.2); Mean Corpuscular Volume 86.4 fl (81-99); Mean Platelet Volume 7.4 fl (7.4-10.4); Monocytes # 0.4 K/mm3 (0.1-1.0); Monocytes % 7.1 % (1.7-9.3); Neutrophils # 3.1 K/mm3 (1.8-7.8); Neutrophils % 57.2 % (37.0-80.0); Platelet Count 340 K/mm3 (142-424); Red Blood Count 4.23 M/mm3 (4.20-5.40); Red Cell Distribution Width 13.8 % (11.5-17.5); White Blood Count 5.5 K/mm3 (4.8-10.8)
[2020-08-29 08:40] LABS: Anion Gap 15.2 mEq/L (5-15); Blood Urea Nitrogen 22 mg/dl (7-17); Calcium 9.6 mg/dl (8.4-10.2); Carbon Dioxide 27 mmol/L (22.0-30.0); Chloride 93 mmol/L (98-107); Estimated Glomerular Filt Rate 55 ml/min (>60); GFR (African American) 67 ML/MIN (>60); Glucose 143 mg/dl (74-100); Potassium 5.2 mmoL/L (3.5-5.1); Sodium 130 mmol/L (136-145)
[2020-08-29 09:06] LABS: Coronavirus 19 IgG Antibody Negative (Negative); Coronavirus 19 IgM Antibody Negative (Negative)
== END ==
PROVIDERS: Visit Provider Urology
DX: Z01.810 Encounter for preprocedural cardiovascular examination; Z20.822 Contact with and (suspected) exposure to COVID-19; I25.10 Atherosclerotic heart disease of native coronary artery without angina pectoris; R06.02 Shortness of breath; R06.00 Dyspnea, unspecified; R00.2 Palpitations; R94.30 Abnormal result of cardiovascular function study, unspecified; R60.0 Localized edema; E11.9 Type 2 diabetes mellitus without complications; E78.00 Pure hypercholesterolemia, unspecified; E78.5 Hyperlipidemia, unspecified; I10 Essential (primary) hypertension; I27.20 Pulmonary hypertension, unspecified; R06.83 Snoring; Z95.1 Presence of aortocoronary bypass graft; Z79.4 Long term (current) use of insulin
CPT/HCPCS: 36415; 80048; 85025; 86328

== ENCOUNTER 2020-08-31 09:06 | Day surgery (SDC) | payer MEDICARE, SELFPAY ==
[2020-08-31] VITALS (12 sets, daily range): BP systolic 141–175; BP diastolic 55–88; PULSE 73–94; RESP 18; TEMP 36.2–36.4; O2SAT 96–100; BMI 35.9
--- NOTE | 2020-08-31 07:03 | IR_ITS ---
APPROVED REPORT Patient Location: [facility] Supervisor: VIRGINIA Manley RT (R) PROCEDURES Left heart catheterization Left ventriculogram Selective coronary angiogram Selective engagement of the right internal mammary artery Drug-eluting stent deployment to the right internal mammary artery Drug-eluting stent deployment to the ostial dominant right coronary artery Bilateral selective renal angiography INDICATION Coronary disease, History of coronary bypass surgery, Recurrent and recalcitrant angina pectoris, Renovascular hypertension suspected based on vascular disease and recalcitrant hypertension Informed consent was obtained prior to the procedure. COMPLICATIONS None Estimated Blood Loss: Less than 10 mls TECHNIQUE 1% lidocaine used anesthetize right groin the right femoral artery was accessed via the Salinger technique and a 5 Portuguese sheath was placed in the right femoral artery. A [id number] JR4 CALDERÓN catheter was used to perform left heart catheterization left ventriculogram and selective coronary therapy as well as selective engagement of the right internal mammary artery. Because of patient's poorly controlled blood pressure hypertension with known vascular disease and significant hyperdynamic ventricle stemming from hypertensive heart disease it was decided to proceed with bilateral renal angiography. JR4 catheter was used to selectively intubate each renal artery and perform selective angiography. At the end of the diagnostic angiogram the 5 Portuguese sheath was exchanged for a 6 Portuguese sheath and therapeutic heparin was administered. The CALDERÓN guide catheter was placed in the right internal mammary artery and a Choice PT extra-support wire was placed distally. A 2.5 x 15 mm Xience drug-eluting stent was deployed at 20 isaac reducing the stenosis. Angiographically this did not have satisfactory results although the stenosis was reduced to there still was not adequate blood supply down the menominee graft leading me to believe the menominee vessel was the dominant provider of circulation. Because of patient's recalcitrant angina pectoris and the fact she restenosis this graft combined with the less than satisfactory inline flow to the menominee vessel via the bypass graft I felt this should be an unusual situation in which the [place]ominee artery should now be revascularized. The same catheter was pulled back and placed into the right coronary artery and the Choice PT extra-support wire was placed distally. A 3.5 x 12 mm Xience stent was placed in the ostial segment of the right coronary artery and deployed at 20 isaac followed by 24 isaac flaring the stent. Excellent angiographic results were obtained. Immediately upon revascularize the menominee vessel there was excellent inline flow into the menominee vessel with significant retrograde filling of the right internal mammary graft. Based on the excellent results of the [place]ominee vessel I do believe this was the appropriate procedure to help with this patient's angina pectoris. After achieving excellent angiographic is also apparatus was removed the groin was reprepped closure changed sheath was removed good hemostasis was achieved using Perclose device patient was transferred to the postop holding her stable condition ANGIOGRAPHIC RESULTS The left main artery Normal The left anterior descending artery Normal The circumflex artery Normal The right coronary artery Dominant with a stent in the ostial segment which has 80% in-stent restenosis. Distally the vessel is normal The WANG ventriculogram reveals Hyperdynamic estimated at 75 to 80% The left ventricular end-diastolic pressure 20 mmHg The right internal mammary arteries are patent graft with less than satisfactory
[2020-08-31 14:53] LABS: CATHL Activated Clotting Time > 400 SEC (74-125)
== END 2020-08-31 14:37 | disposition home or self-care (01) ==
LOC: CATHLAB 09:07
PROVIDERS: PCP Family Medicine; Visit Provider Internal Medicine
DX: E11.9 Type 2 diabetes mellitus without complications (principal); E78.00 Pure hypercholesterolemia, unspecified; E78.5 Hyperlipidemia, unspecified; I10 Essential (primary) hypertension; I27.20 Pulmonary hypertension, unspecified; R00.2 Palpitations; R06.00 Dyspnea, unspecified; R60.0 Localized edema; R94.30 Abnormal result of cardiovascular function study, unspecified; Z95.1 Presence of aortocoronary bypass graft; Z79.4 Long term (current) use of insulin; Z88.8 Allergy status to other drugs, medicaments and biological substances; Z88.1 Allergy status to other antibiotic agents; I25.118 Atherosclerotic heart disease of native coronary artery with other forms of angina pectoris; I25.728 Atherosclerosis of autologous artery coronary artery bypass graft(s) with other forms of angina pectoris; I15.0 Renovascular hypertension; T82.855A Stenosis of coronary artery stent, initial encounter; Y83.1 Surgical operation with implant of artificial internal device as the cause of abnormal reaction of the patient, or of later complication, without mention of misadventure at the time of the procedure
CPT/HCPCS: 36252; 85347; 92928; 92937; 93459; 99152; 99153; C1725; C1760; C1769; C1876; C1894; C9600; C9604; J1644; Q9967

== ENCOUNTER 2020-09-03 12:33 | Emergency (ER) | payer MEDICARE, SELFPAY ==
[2020-09-03] VITALS (11 sets, daily range): BP systolic 124–155; BP diastolic 59–80; PULSE 65–75; RESP 12–21; TEMP 36.6–36.8; O2SAT 95–98; BMI 35.2
--- NOTE | 2020-09-03 12:28 | ECG_ITS ---
APPROVED REPORT Exam: Resting ECG HR:69 bpm ECG Measurements Heart Rate 69 AXES AR 180 P 77 QRSd 90 QRS 52 QT 424 T 78 QTc 454 Conclusion Normal sinus rhythm Normal ECG Electronically signed by : Maxx Wooten, 09/03/2020 17:38:33
--- NOTE | 2020-09-03 12:41 | XR_ITS ---
PROCEDURE: XR CHEST PORTABLE CLINICAL HISTORY: CHEST PAIN COMPARISON: CR XR CHEST 2V from 10/30/[address] CHEST W CON from 11/18/2019 CR XR CHEST 2V from 02/07/2020 CR XR CHEST 2V from 05/28/2020 FINDINGS: Prior median sternotomy. Normal heart size. There is a right-sided pericardial fat pad. The remaining lungs are clear. The lungs are clear without infiltrates, suspicious nodules, or pleural effusions. No acute bony abnormalities. IMPRESSION: No acute findings. Dictated by: Jay Figueroa MD 09/03/2020 14:46 Jay Figueroa MD in [place] 09/03/2020 14:46
--- NOTE | 2020-09-03 12:49 | HMH.EDGENADL ---
ED Disposition Clinical Impression: Chest pain Qualifiers: Chest pain type: unspecified Qualified Code(s): R07.9 - Chest pain, unspecified Disposition: Home, Self-Care Condition on Discharge: Good Instructions: DI for Chest Pain Additional Instructions: Increase Ranexa as instructed by Santa and Dr. Betts. Call Dr. Betts's office tomorrow to arrange follow-up. Additional instructions for CHEST PAIN: Return immediately if worsening chest pain, vomiting, shortness of breath, fever, coughing of blood. Referrals: Maxx Matos MD [Primary Care Provider] - - Critical Care Critical Care Time: No Attestation: On 09/03/20, the high probability of a clinically significant, sudden or life threatening deterioration of the following system(s) required my full and direct attention, intervention and personal management. The time I documented below is in addition to time spent performing reported procedures but includes the following listed in this critical care notation. Medical Decision Making - Medical Records Medical records reviewed: Yes: I reviewed the patient's medical records. MR Comment: Recent heart cath report reviewed, see below. - Mitch Inquiry Pt receiving controlled substance: No Vital Signs: 09/03/20 12:33 09/03/20 12:56 09/03/20 13:00 Temperature 98.2 F Temperature Source Oral Pulse Rate 71 71 Pulse Rate [Radial] 70 Respiratory Rate 18 18 21 Blood Pressure Blood Pressure [Left Arm] 155/80 H Blood Pressure [Right Arm] 143/64 H Blood Pressure Mean Blood Pressure Mean [Left Arm] 105 Blood Pressure Mean [Right Arm] 90 Blood Pressure Position [Left Arm] Sitting Blood Pressure Position [Right Arm] Sitting 02 Sat by Pulse Oximetry 98 98 98 Oxygen Delivery Method Room Air 09/03/20 13:31 09/03/20 14:01 09/03/20 15:03 Temperature Temperature Source Pulse Rate 72 68 Pulse Rate [Radial] Respiratory Rate 16 14 12 Blood Pressure 153/69 H 151/67 H 135/60 Blood Pressure [Left Arm] Blood Pressure [Right Arm] Blood Pressure Mean 106 95 85 Blood Pressure Mean [Left Arm] Blood Pressure Mean [Right Arm] Blood Pressure Position [Left Arm] Blood Pressure Position [Right Arm] 02 Sat by Pulse Oximetry 96 95 97 Oxygen Delivery Method 09/03/20 15:30 09/03/20 16:00 09/03/20 16:30 Temperature Temperature Source Pulse Rate 69 69 72 Pulse Rate [Radial] Respiratory Rate 12 12 16 Blood Pressure 143/59 H 142/61 H 144/63 H Blood Pressure [Left Arm] Blood Pressure [Right Arm] Blood Pressure Mean 87 97 90 Blood Pressure Mean [Left Arm] Blood Pressure Mean [Right Arm] Blood Pressure Position [Left Arm] Blood Pressure Position [Right Arm] 02 Sat by Pulse Oximetry 96 97 97 Oxygen Delivery Method 09/03/20 17:00 Temperature Temperature Source Pulse Rate 75 Pulse Rate [Radial] Respiratory Rate 12 Blood Pressure 149/62 H Blood Pressure [Left Arm] Blood Pressure [Right Arm] Blood Pressure Mean 91 Blood Pressure Mean [Left Arm] Blood Pressure Mean [Right Arm] Blood Pressure Position [Left Arm] Blood Pressure Position [Right Arm] 02 Sat by Pulse Oximetry 95 Oxygen Delivery Method - Lab Data Lab Results 09/03/20 13:25: WBC 7.5, RBC 4.17 L, Hgb 12.0 L, Hct 35.9 L, MCV 86.2, MCH 28.7, MCHC 33.3, RDW 14.0, Plt Count 327, MPV 7.4, Neut % (Auto) 61.1, Lymph % (Auto) 31.3, [place] % (Auto) 4.9, Eos % (Auto) 2.1, Baso % (Auto) 0.7, Neut # (Auto) 4.6, Lymph # (Auto) 2.3, [place] # (Auto) 0.4, Eos # (Auto) 0.2, Baso # (Auto) 0.1 09/03/20 13:25: Sodium 130 L, Potassium 5.0, Chloride 94 L, Carbon Dioxide 25, Anion Gap 16.0 H, BUN 25 H, Creatinine 1.00, Estimated Creat Clear 78, Estimated GFR 55 L, Est GFR ( Amer) 67, Glucose 114 H, Calcium 9.5, Troponin I < 0.01 09/03/20 15:13: POC Glucose 89 09/03/20 16:30: Troponin I < 0.01 Result diagrams: 09/03/20 13:25 09/03/20 13:25 Orders (Tests/Meds): ED MED
--- NOTE | 2020-09-03 13:12 | PC.NURSE ---
UNSUCCESSFUL IV ATTEMPT 2X. MOISÉS MCKEON ATTEMPTING
--- NOTE | 2020-09-03 13:22 | PC.NURSE ---
Addendum entered by Caitlin Allen, EMT 09/03/20 13:24: Santa Pena APRN Original Note: Reagan Pena APRn to come to ed to see pt.
[2020-09-03 13:39] LABS: Basophils # 0.1 K/mm3 (0-0.2); Basophils % 0.7 % (0.1-2.0); Eosinophils # 0.2 K/mm3 (0.0-0.4); Eosinophils % 2.1 % (0.1-12.0); Hematocrit 35.9 % (37.0-47.0); Lymphocytes # 2.3 K/mm3 (0.7-4.5); Lymphocytes % 31.3 % (10-50); Mean Corpuscular HGB Conc 33.3 g/dL (31.8-35.4); Mean Corpuscular Hemoglobin 28.7 pg (27.0-31.2); Mean Corpuscular Volume 86.2 fl (81-99); Mean Platelet Volume 7.4 fl (7.4-10.4); Monocytes # 0.4 K/mm3 (0.1-1.0); Monocytes % 4.9 % (1.7-9.3); Neutrophils # 4.6 K/mm3 (1.8-7.8); Neutrophils % 61.1 % (37.0-80.0); Platelet Count 327 K/mm3 (142-424); Red Blood Count 4.17 M/mm3 (4.20-5.40); White Blood Count 7.5 K/mm3 (4.8-10.8)
[2020-09-03 13:48] LABS: Chloride 94 mmol/L (98-107); Sodium 130 mmol/L (136-145)
[2020-09-03 13:52] LABS: Blood Urea Nitrogen 25 mg/dl (7-17); Calcium 9.5 mg/dl (8.4-10.2); Carbon Dioxide 25 mmol/L (22.0-30.0); Creatinine Clearance Estimated 78 mL/min (50-200); Estimated Glomerular Filt Rate 55 ml/min (>60); GFR (African American) 67 ML/MIN (>60); Glucose 114 mg/dl (74-100)
--- NOTE | 2020-09-03 13:56 | PC.NURSE ---
Santa Pena APRN at bedside
--- NOTE | 2020-09-03 13:56 | PC.NURSE ---
Jeremiah Pena from cardiology at bedside.
--- NOTE | 2020-09-03 14:02 | HMH.CNCARD ---
History of Present Illness Consult date: 09/03/20 Requesting physician: Desean Fulton Consult reason: chest pain Chief complaint: chest pain History of present illness: This is a 69-year-old white female who presented to the emergency department with complaints of chest pain. 3 days ago the patient underwent stenting to the ZAKIA and stenting to the right coronary artery. The patient tolerated the procedure well. She states on Monday she felt really good at home. She states Monday evening she became extremely fatigued and started having shortness of breath and diaphoresis. This morning she woke up with pain in the lower sternal aspect of her chest. She states that this is a sharp pushing sensation in the lower sternal aspect. She states that it radiates to her back. She states the pain was about a 5 out of 10 at its worst. It is associated with shortness of breath. She states nothing really helped to improve the pain and nothing is worsening the pain. She states that she was given aspirin in the emergency department and this did not help her pain. She states that she has not taken any nitroglycerin. She denies any fever, chills, nausea, vomiting, diarrhea, PND orthopnea. [facility] History I have reviewed the patient's past medical history: Yes Medical History: Reports:: Anxiety, Cancer (BREAST CANCER 2013), Coronary Artery Disease, Depression, Diabetes Mellitus Type 2, Hyperlipidemia, Hypertension, Osteoporosis Denies:: Diabetes Mellitus Type 1, Internal Pacemaker, Lung Disease, MRSA, Seizures *Have you ever received a pneumonia vaccine?: Yes *Have you received a flu vaccine this season?: Yes Other Medical History: Reports: Arthritis, Chemotherapy, Fibromyalgia, Osteoporosis, Radiation Therapy, Other (LEFT VENTRICULAR DYSFUCTION). Denies: Blood Transfusion Reaction Laterality Cases: Left: Breast Biopsy, Lumpectomy Other Surgeries: Yes: No Previous Surgery, Angioplasty, CABG, Cancer Surgery, Cardiac Catheterization, Cardiac Surgery, Colonoscopy, Coronary Stent, EGD, Hysterectomy-Total, Tubal Ligation. No: Pacemaker Amputation: No Fractures: No - *Social History Smoking Status: Never smoker Alcohol Intake: never Alcohol Intake Frequency:: other Substance Use Type: denies use *Occupational Status:: retired Housing: house Household Members: spouse *Travel in the last 8 weeks: None - Psychiatric History Pschychiatric History:: Reports:: Anxiety, Depression Family Hx:: Cancer, Coronary Artery Disease, Hyperlipidemia, Hypertension FUNERAL DRIVER history: no No FUNERAL DRIVER history, no Non-contributory, no Spontaneous , no Therapeutic , no Cervical Cancer, no Abnormal Uterine Bleeding, no Ovarian Cancer, no dysfunctional uterine bleed, no Endometriosis, no Ectopic , no Polycystic Ovary Syndrome, no Uterine Fibroids, no Tubal Ligation, no , no Failure to Progress, no Additional FUNERAL DRIVER History Meds Home Medications Medication Instructions Recorded Confirmed Type insulin human U-100 NPH-regulr 25 unit SUB-Q BID 06/21/17 09/03/20 History 70-30 mix 100 unit/mL subcutaneous susp tizanidine 4 mg capsule 4 mg PO TID 06/21/17 09/03/20 History aspirin 81 mg tablet,delayed 81 mg PO DAILY 11/22/17 09/03/20 History release ezetimibe 10 mg tablet 10 mg PO DAILY 90 Days tab 11/22/17 09/03/20 History Milnacipran HCl [Savella] 50 mg PO BID 02/05/18 09/03/20 History metformin 1,000 mg tablet,extended 1,000 mg PO BID tab 08/14/18 09/03/20 History release 24hr magnesium 250 mg tablet 500 mg PO DAILY 07/23/19 09/03/20 History lansoprazole 30 mg capsule,delayed 30 mg PO DAILY cap 11/06/19 09/03/20 History release aripiprazole 2 mg tablet 2 mg PO DAILY tab 01/08/20 09/03/20 History Clopidogrel Bisulfate [Plavix] 75 mg PO QDAY 06/17/20 09/03/20 History Escitalopram Oxalate 20 mg PO DAILY 06/17/20 09/03/20 History Evolocumab [Repatha SureClick] 140 mg SQ Q2W 06/17/20 09/03/20 History Furosemide [Furosemide 20mg Tab*] 20
[2020-09-03 14:05] LABS: Troponin I < 0.01 ng/ml (0.00-0.034)
--- NOTE | 2020-09-03 14:22 | PC.NURSE ---
PT STATES KATE GIVES HER A SEVERE H/A. [facility]
--- NOTE | 2020-09-03 15:15 | PC.NURSE ---
pt requested I (Carrington Mann NRP) check her BGL as she does around this time of day every day. Patient BGL 89.
[2020-09-03 15:21] LABS: POC Glucose,Bedside 89 (70-110)
--- NOTE | 2020-09-03 16:29 | PC.NURSE ---
lab at bedside
[2020-09-03 17:03] LABS: Troponin I < 0.01 ng/ml (0.00-0.034)
== END 2020-09-03 18:05 | disposition home or self-care (01) ==
PROVIDERS: Emergency Provider Emergency Medicine; PCP Family Medicine
DX: R07.9 Chest pain, unspecified (principal); I25.10 Atherosclerotic heart disease of native coronary artery without angina pectoris; I10 Essential (primary) hypertension; Z95.1 Presence of aortocoronary bypass graft; M81.0 Age-related osteoporosis without current pathological fracture; E78.5 Hyperlipidemia, unspecified; E11.9 Type 2 diabetes mellitus without complications; Z79.899 Other long term (current) drug therapy
CPT/HCPCS: 36415; 71045; 80048; 82962; 84484; 85025; 93005; 99282

== ENCOUNTER → 2020-09-09 11:10 | Outpatient (CLI) | payer MEDICARE, SELFPAY ==
[2020-09-09 11:34] LABS: Basophils % 0.3 % (0.1-2.0); Eosinophils % 0.6 % (0.1-12.0); Hematocrit 36.9 % (37.0-47.0); Hemoglobin 12.3 g/dL (12.2-16.2); Lymphocytes # 1.5 K/mm3 (0.7-4.5); Lymphocytes % 25.4 % (10-50); Mean Corpuscular HGB Conc 33.2 g/dL (31.8-35.4); Mean Corpuscular Hemoglobin 28.6 pg (27.0-31.2); Mean Corpuscular Volume 85.9 fl (81-99); Mean Platelet Volume 7.3 fl (7.4-10.4); Monocytes # 0.4 K/mm3 (0.1-1.0); Monocytes % 6.2 % (1.7-9.3); Neutrophils # 3.9 K/mm3 (1.8-7.8); Neutrophils % 67.5 % (37.0-80.0); Platelet Count 380 K/mm3 (142-424); Red Blood Count 4.29 M/mm3 (4.20-5.40); Red Cell Distribution Width 13.8 % (11.5-17.5); White Blood Count 5.8 K/mm3 (4.8-10.8)
[2020-09-09 12:22] LABS: Anion Gap 16.3 mEq/L (5-15); Blood Urea Nitrogen 21 mg/dl (7-17); Carbon Dioxide 28 mmol/L (22.0-30.0); Chloride 86 mmol/L (98-107); Estimated Glomerular Filt Rate 45 ml/min (>60); GFR (African American) 54 ML/MIN (>60); Glucose 84 mg/dl (74-100); Potassium 5.3 mmoL/L (3.5-5.1); Sodium 125 mmol/L (136-145)
== END ==
PROVIDERS: Visit Provider Internal Medicine
DX: Z95.5 Presence of coronary angioplasty implant and graft (principal); I25.10 Atherosclerotic heart disease of native coronary artery without angina pectoris
CPT/HCPCS: 36415; 80048; 85025

== ENCOUNTER → 2020-09-14 10:04 | Outpatient (CLI) | payer MEDICARE, SELFPAY ==
--- NOTE | 2020-09-14 10:08 | XR_ITS ---
PROCEDURE: XR KNEE LT 3V CLINICAL INDICATION: LT MEDIAL KNEE PAIN COMPARISON: CR KNEE3R KNEE-3 VIEWS-RT from 01/31/2017 FINDINGS: No fracture or dislocation. No lytic or blastic change. There is normal mineralization. There are mild osteoarthritic changes of the medial compartment and patellofemoral joint. Small suprapatellar effusion is noted. There are 2 surgical clips along the medial and posterior aspect of the proximal leg. Other findings:None. IMPRESSION: Mild osteoarthritis with knee joint effusion Dictated by: Jay Figueroa MD 09/14/2020 10:36 Jay Figueroa MD in [place] 09/14/2020 10:36
== END ==
PROVIDERS: PCP Family Medicine; Visit Provider Family Medicine
DX: M25.562 Pain in left knee (principal)
CPT/HCPCS: 73562

== ENCOUNTER 2020-09-15 07:32 | Emergency (ER) | payer MEDICARE, SELFPAY ==
[2020-09-15] VITALS (9 sets, daily range): BP systolic 165–215; BP diastolic 69–100; PULSE 68–99; RESP 16–20; TEMP 36.4–36.6; O2SAT 96–99; BMI 35.2
--- NOTE | 2020-09-15 07:45 | ECG_ITS ---
APPROVED REPORT Exam: Resting ECG HR:86 bpm ECG Measurements Heart Rate 86 AXES NE 204 P 64 QRSd 94 QRS -7 QT 370 T 61 QTc 442 Conclusion Normal sinus rhythm Normal ECG Electronically signed by : Maxx Wooten, 09/15/2020 15:09:59
--- NOTE | 2020-09-15 07:54 | XR_ITS ---
PROCEDURE: XR CHEST PORTABLE CLINICAL HISTORY: HTN COMPARISON: CT CT CHEST W CON from 11/18/2019 CR XR CHEST 2V from 02/07/2020 CR XR CHEST 2V from 05/28/2020 CR XR CHEST PORTABLE from 09/03/2020 FINDINGS: There is a sternotomy wire superiorly. Normal heart size. Coronary artery stents and or calcifications noted. Increased markings in the right lung base which may be related to pericardial fat pad as seen on previous exams. No lobar consolidation or collapse. No acute bony abnormalities. IMPRESSION: No acute findings. Dictated by: Jay Figueroa MD 09/15/2020 09:30 Jay Figueroa MD in [place] 09/15/2020 09:30
--- NOTE | 2020-09-15 07:59 | HMH.EDGENADL ---
ED Disposition Clinical Impression: Hypertensive urgency Headache Qualifiers: Headache type: other vascular headache Qualified Code(s): G44.1 - Vascular headache, not elsewhere classified Disposition: Home, Self-Care Condition on Discharge: Good Instructions: Essential Hypertension Additional Instructions: You have been evaluated for headache and elevated blood pressure. Please take all medications as prescribed. Follow-up with your primary care doctor and alumni secretary. Return to the emergency department for any new or worsening symptoms. Referrals: Maxx Matos MD [Primary Care Provider] - Time of Disposition: 09:41 - Critical Care Critical Care Time: No Attestation: On 09/15/20, the high probability of a clinically significant, sudden or life threatening deterioration of the following system(s) required my full and direct attention, intervention and personal management. The time I documented below is in addition to time spent performing reported procedures but includes the following listed in this critical care notation. Medical Decision Making - Medical Records Medical records reviewed: Yes: I reviewed the patient's medical records. - Mitch Inquiry Pt receiving controlled substance: No Vital Signs: 09/15/20 07:38 09/15/20 07:55 09/15/20 08:01 Temperature 97.5 F L Temperature Source Oral Pulse Rate 93 H 87 Respiratory Rate 19 18 16 Blood Pressure 214/100 H 209/100 H Blood Pressure Mean 181 136 Blood Pressure Source 02 Sat by Pulse Oximetry 98 98 99 Oxygen Delivery Method Room Air 09/15/20 08:23 09/15/20 08:26 09/15/20 08:31 Temperature Temperature Source Pulse Rate 96 H 99 H 80 Respiratory Rate 16 18 16 Blood Pressure 215/88 H 215/88 H 173/69 H Blood Pressure Mean 130 103 Blood Pressure Source Automatic Cuff 02 Sat by Pulse Oximetry 99 98 99 Oxygen Delivery Method Room Air 09/15/20 09:32 Temperature Temperature Source Pulse Rate 76 Respiratory Rate 20 Blood Pressure 165/81 H Blood Pressure Mean 103 Blood Pressure Source 02 Sat by Pulse Oximetry 96 Oxygen Delivery Method - Lab Data Lab Results 09/15/20 07:43: WBC 5.3, RBC 4.38, Hgb 12.5, Hct 37.5, MCV 85.6, MCH 28.6, MCHC 33.4, RDW 13.7, Plt Count 399, MPV 7.2 L, Neut % (Auto) 54.5, Lymph % (Auto) 35.3, [place] % (Auto) 5.5, Eos % (Auto) 3.9, Baso % (Auto) 0.8, Neut # (Auto) 2.9, Lymph # (Auto) 1.9, [place] # (Auto) 0.3, Eos # (Auto) 0.2, Baso # (Auto) 0.0, Total Counted 100, Neutrophils % (Manual) 58, Lymphocytes % (Manual) 35, Monocytes % (Manual) 3, Eosinophils % (Manual) 4 H, Platelet Estimate Normal, RBC Morphology Normal 09/15/20 07:43: Sodium 127 L, Potassium 5.1, Chloride 93 L, Carbon Dioxide 25, Anion Gap 14.1, BUN 15, Creatinine 0.90, Estimated Creat Clear 78, Estimated GFR 62, Est GFR ( Amer) 75, Glucose 150 H, Calcium 9.8, Total Bilirubin 0.4, AST 40 H, ALT 28, Alkaline Phosphatase 64, Troponin I < 0.01, Total Protein 7.8, Albumin 4.8, Globulin 3.0, Albumin/Globulin Ratio 1.6 Result diagrams: 09/15/20 07:43 09/15/20 07:43 Orders (Tests/Meds): ED MEDICATIONS Discontinued Medications Generic Name Dose Route Start Last Admin Trade Name Freq PRN Reason Stop Dose Admin Acetaminophen 650 mg 09/15/20 09:23 09/15/20 09:29 Acetaminophen 325mg Tab PO 09/15/20 09:24 650 mg ONCE ONE Administration Carvedilol 12.5 mg 09/15/20 08:08 09/15/20 08:17 Carvedilol 12.5mg Tablet PO 09/15/20 08:09 12.5 mg ONCE ONE Administration Metoprolol Tartrate 5 mg 09/15/20 08:15 09/15/20 08:17 Metoprolol Tartrate 5mg/5ml Vial IV 09/15/20 08:16 5 mg ONCE ONE Administration ORDERS Category Date Time Status Troponin I Q3H Lab 09/15/20 11:00 Ordered Troponin I Q3H Lab 09/15/20 14:00 Ordered UA [Urinalysis and Microscopic] Stat Lab 09/15/20 08:06 Ordered - ECG Data Tracing #1 Sinus rhythm with ventricular rate of 86 bpm. QRS 94, QTc 442. No ST seg
--- NOTE | 2020-09-15 08:04 | CT_ITS ---
PROCEDURE: CT HEAD/BRAIN WO CON CLINICAL INDICATION: HTN/ Weakness Bilateral leg weakness COMPARISON: No exams were available for comparison TECHNIQUE: Axial images obtained. All CT scans at the facility use one or more dose reduction, viz: automated exposure control, ma/kV adjustment per patient size (including targeted exams where dose is matched to indication, i.e. head), or iterative reconstruction technique. FINDINGS: No midline shift, mass effect, intracranial hemorrhage, hydrocephalus, or extra-axial fluid collection is evident. The calvarium has an unremarkable appearance. No mastoid effusion. No sinus air-fluid level. IMPRESSION: No acute intracranial finding Dictated by: Jay Figueroa MD 09/15/2020 09:20 Jay Figueroa MD in [place] 09/15/2020 09:20
[2020-09-15 08:07] LABS: MANUAL DIFFERENTIAL MANUAL DIFFERENTIAL (MANUAL DIFF)
--- NOTE | 2020-09-15 08:07 | PC.NURSE ---
Rad at bedside for chest Xray
[2020-09-15 08:08] LABS: Basophils % 0.8 % (0.1-2.0); Eosinophils # 0.2 K/mm3 (0.0-0.4); Eosinophils % 3.9 % (0.1-12.0); Hematocrit 37.5 % (37.0-47.0); Hemoglobin 12.5 g/dL (12.2-16.2); Lymphocytes # 1.9 K/mm3 (0.7-4.5); Lymphocytes % 35.3 % (10-50); Mean Corpuscular HGB Conc 33.4 g/dL (31.8-35.4); Mean Corpuscular Hemoglobin 28.6 pg (27.0-31.2); Mean Corpuscular Volume 85.6 fl (81-99); Mean Platelet Volume 7.2 fl (7.4-10.4); Monocytes # 0.3 K/mm3 (0.1-1.0); Monocytes % 5.5 % (1.7-9.3); Neutrophils # 2.9 K/mm3 (1.8-7.8); Neutrophils % 54.5 % (37.0-80.0); Platelet Count 399 K/mm3 (142-424); Red Blood Count 4.38 M/mm3 (4.20-5.40); Red Cell Distribution Width 13.7 % (11.5-17.5); White Blood Count 5.3 K/mm3 (4.8-10.8)
--- NOTE | 2020-09-15 08:15 | PC.NURSE ---
pt to restroom at this time.
[2020-09-15 08:17] LABS: Chloride 93 mmol/L (98-107); Sodium 127 mmol/L (136-145)
[2020-09-15 08:18] LABS: Potassium 5.1 mmoL/L (3.5-5.1)
[2020-09-15 08:20] LABS: Alanine Aminotransferase 28 U/L (12-78); Alkaline Phosphatase 64 U/L (38-126); Anion Gap 14.1 mEq/L (5-15); Aspartate Amino Transferase 40 U/L (14-36); Bilirubin,Total 0.4 mg/dl (0.2-1.3); Blood Urea Nitrogen 15 mg/dl (7-17); Carbon Dioxide 25 mmol/L (22.0-30.0); Creatinine Clearance Estimated 78 mL/min (50-200); Estimated Glomerular Filt Rate 62 ml/min (>60); GFR (African American) 75 ML/MIN (>60)
[2020-09-15 08:21] LABS: Albumin Level 4.8 g/dl (3.5-5.0); Albumin/Globulin Ratio 1.6 (1.1-1.8); Calcium 9.8 mg/dl (8.4-10.2); Glucose 150 mg/dl (74-100); Total Protein,Serum 7.8 g/dl (6.3-8.2)
--- NOTE | 2020-09-15 08:26 | PC.NURSE ---
pt returning from restroom. Hat for UA fell into toilet on pt therefore another urine specimen will be collected at a later time.
[2020-09-15 08:40] LABS: Troponin I < 0.01 ng/ml (0.00-0.034)
[2020-09-15 08:49] LABS: Eosinophils % 4 % (0-3); Lymphocytes % 35 % (10-50); Monocytes % 3 % (2-9); Neutrophils % 58 % (42-76); Platelet Estimate Normal; RBC Morphology Normal; Total Cells Counted 100
--- NOTE | 2020-09-15 08:50 | PC.NURSE ---
Pt gone to radiology
--- NOTE | 2020-09-15 09:19 | PC.NURSE ---
pt returning from rad.
--- NOTE | 2020-09-15 09:22 | PC.NURSE ---
MD at bedside updating pt on results and plan of care.
--- NOTE | 2020-09-15 09:38 | PC.NURSE ---
Pt taken to restroom.
--- NOTE | 2020-09-15 09:44 | PC.NURSE ---
pt returned to room.
[2020-09-15 09:58] LABS: Microscopic, Urine URINE MICROSCOPIC (MICROSCOPIC)
[2020-09-15 10:03] LABS: Appearance,Urine CLEAR (Clear); Bilirubin,Urine Negative (Negative); Blood, Urine 1+ (Negative); Color,Urine YELLOW (Yellow); Glucose,Urine (UA) Negative (Negative); Ketones,Urine Negative (Negative); Leukocyte Esterase,Urine Negative (Negative); Nitrate,Urine Negative (Negative); PH,Urine 6.5 (5.0-8.5); Protein,Urine 2+ (Negative); Urobilinogen,Urine 0.2 EU/dl (0.2)
== END 2020-09-15 10:05 | disposition home or self-care (01) ==
PROVIDERS: Emergency Medicine; Emergency Provider Emergency Medicine; PCP Family Medicine
DX: I16.0 Hypertensive urgency (principal); G44.1 Vascular headache, not elsewhere classified; I25.10 Atherosclerotic heart disease of native coronary artery without angina pectoris; E11.9 Type 2 diabetes mellitus without complications; E78.5 Hyperlipidemia, unspecified; F41.8 Other specified anxiety disorders; M81.0 Age-related osteoporosis without current pathological fracture; Z79.899 Other long term (current) drug therapy
CPT/HCPCS: 70450; 71045; 80053; 81001; 84484; 85007; 85014; 85018; 85048; 85049; 93005; 96375; 99282

== ENCOUNTER → 2020-09-18 09:40 | Outpatient (CLI) | payer MEDICARE, SELFPAY ==
[2020-09-18 11:08] LABS: Basophils % 0.5 % (0.1-2.0); Eosinophils # 0.1 K/mm3 (0.0-0.4); Eosinophils % 0.9 % (0.1-12.0); Hemoglobin 11.7 g/dL (12.2-16.2); Lymphocytes # 1.3 K/mm3 (0.7-4.5); Lymphocytes % 20.6 % (10-50); Mean Corpuscular HGB Conc 33.4 g/dL (31.8-35.4); Mean Corpuscular Hemoglobin 28.2 pg (27.0-31.2); Mean Corpuscular Volume 84.5 fl (81-99); Mean Platelet Volume 7.7 fl (7.4-10.4); Monocytes # 0.4 K/mm3 (0.1-1.0); Monocytes % 6.3 % (1.7-9.3); Neutrophils # 4.4 K/mm3 (1.8-7.8); Neutrophils % 71.7 % (37.0-80.0); Platelet Count 364 K/mm3 (142-424); Red Blood Count 4.15 M/mm3 (4.20-5.40); Red Cell Distribution Width 13.6 % (11.5-17.5); White Blood Count 6.1 K/mm3 (4.8-10.8)
[2020-09-18 11:29] LABS: Chloride 85 mmol/L (98-107); Potassium 5.6 mmoL/L (3.5-5.1); Sodium 119 mmol/L (136-145)
[2020-09-18 11:31] LABS: Amylase 49 U/L (30-110)
[2020-09-18 11:32] LABS: Alanine Aminotransferase 29 U/L (12-78); Albumin Level 4.4 g/dl (3.5-5.0); Albumin/Globulin Ratio 1.8 (1.1-1.8); Alkaline Phosphatase 57 U/L (38-126); Anion Gap 17.6 mEq/L (5-15); Aspartate Amino Transferase 53 U/L (14-36); Bilirubin,Total 0.5 mg/dl (0.2-1.3); Blood Urea Nitrogen 18 mg/dl (7-17); Calcium 9.2 mg/dl (8.4-10.2); Carbon Dioxide 22 mmol/L (22.0-30.0); Estimated Glomerular Filt Rate 55 ml/min (>60); GFR (African American) 66 ML/MIN (>60); Globulin 2.4 g/dL (1.3-3.2); Glucose 160 mg/dl (74-100); Lipase 69 U/L (23-300); Total Protein,Serum 6.8 g/dl (6.3-8.2)
== END ==
PROVIDERS: PCP Nurse Practitioner Family; Referring Provider Nurse Practitioner Family; Visit Provider Nurse Practitioner Family
DX: Z20.822 Contact with and (suspected) exposure to COVID-19 (principal); R11.2 Nausea with vomiting, unspecified; R53.1 Weakness
CPT/HCPCS: 36415; 80053; 82150; 83690; 85025; U0003

== ENCOUNTER 2020-09-22 08:25 | Day surgery (SDC) | payer MEDICARE, SELFPAY ==
[2020-09-21 10:30] VITALS: BMI 35.0
[2020-09-22 09:16] VITALS: BP 113/69; PULSE 68; RESP 16; TEMP 36.6; O2SAT 99
[2020-09-22 09:29] LABS: POC Glucose,Bedside 134 (70-110)
[2020-09-22 10:50] VITALS: BP 157/75; PULSE 68; RESP 20
== END 2020-09-22 10:55 | disposition home or self-care (01) ==
LOC: OUTP 08:26
PROVIDERS: PCP Family Medicine; Visit Provider Ophthalmology
PROC: (CPT 66821; principal; 2020-09-22 09:00)
DX: H26.40 Unspecified secondary cataract (principal); H53.8 Other visual disturbances; F41.9 Anxiety disorder, unspecified; M19.90 Unspecified osteoarthritis, unspecified site; F32.9 Major depressive disorder, single episode, unspecified; E11.9 Type 2 diabetes mellitus without complications; I10 Essential (primary) hypertension; Z88.0 Allergy status to penicillin; Z88.8 Allergy status to other drugs, medicaments and biological substances; Z90.710 Acquired absence of both cervix and uterus; Z79.899 Other long term (current) drug therapy; Z79.82 Long term (current) use of aspirin
CPT/HCPCS: 66821; 82962

== ENCOUNTER → 2020-09-28 15:00 | Outpatient (CLI) | payer MEDICARE, SELFPAY ==
[2020-09-28 16:46] LABS: Chloride 97 mmol/L (98-107); Potassium 4.9 mmoL/L (3.5-5.1); Sodium 130 mmol/L (136-145)
[2020-09-28 16:49] LABS: Blood Urea Nitrogen 19 mg/dl (7-17); Estimated Glomerular Filt Rate 55 ml/min (>60); GFR (African American) 66 ML/MIN (>60)
[2020-09-28 16:50] LABS: Anion Gap 12.9 mEq/L (5-15); Calcium 9.4 mg/dl (8.4-10.2); Carbon Dioxide 25 mmol/L (22.0-30.0); Glucose 124 mg/dl (74-100)
== END ==
PROVIDERS: Visit Provider Urology
DX: E11.9 Type 2 diabetes mellitus without complications (principal); E78.5 Hyperlipidemia, unspecified; E87.1 Hypo-osmolality and hyponatremia; I10 Essential (primary) hypertension; I25.10 Atherosclerotic heart disease of native coronary artery without angina pectoris; I27.20 Pulmonary hypertension, unspecified; R06.02 Shortness of breath; R60.9 Edema, unspecified; Z95.1 Presence of aortocoronary bypass graft; Z95.5 Presence of coronary angioplasty implant and graft; Z79.4 Long term (current) use of insulin
CPT/HCPCS: 36415; 80048

== ENCOUNTER 2020-11-06 15:00 | Outpatient (RCR) | payer MEDICARE, SELFPAY ==
--- NOTE | 2020-09-23 09:33 | HMH.PTOPEV ---
PT Outpatient Evaluation Rehab PT Outpatient Evaluation Start: 09/23/20 09:20 Freq: Status: Active Protocol: Document 09/23/20 09:20 ANETA (Rec: 09/23/20 09:33 ANETA [id number]) Electronically Signed By Amari Duffy, PT 09/23/20 09:20 Outpatient Therapy Subjective History Subjective History Pt reports h/o chronic L knee pain with exacerbation over the last ~2 weeks. Pt reports 'tweaking it' stepping out of 's truck. Pt reports medial aspect L knee pain, with referred pain into L gonzales area, and into popiteal space . Chief Complaint Pain,Stiff,Swelling,Weakness Symptom Type Ache,Throb,Dull Symptoms Relieved By Rest/Positioning,Ice Symptoms Aggravated By Standing,Walking Prior Functional Limitations Standing,Walking Current Functional Limitations Standing,Squatting,Walking, Stairs Symptom Description Constant but Variable Level of pain today (0-10) 5 Pain scale - at its best (0-10) 5 Pain scale - at its worst (0-10) 8 Hip/Knee Eval Gait Observation General Gait Pattern Observation Antalgic Gait Palpation Tenderness left Knee Palpation Finding Tenderness Knee Palpation Overall Comment 3/4 pes anserine, medial jt line, popiteal space MMT Hip Flexion Strength Grade 4- Good- Hip Abduction Strength Grade 3+ Fair+ Hip Adduction Strength Grade 3+ Fair+ Hip Extension Strength Grade 3+ Fair+ Hip External Rotation Strength Grade 4- Good- Hip Internal Rotation Strength Grade 4- Good- Knee Extension Strength Grade 4 Good Knee Flexion Strength Grade 4- Good- ROM Knee Flexion Active Range of Motion ( 2-120 degrees) Knee ROM Limitations Pain Effusion joint effusion knee exam standard left Mid - Patellar Circumerential Measure ( 44 cm) Special Tests Knee Valgus Stress Test Negative Left Knee Varus Stress Test Negative Left Knee [place] Test Negative Left Patella Apprehension Test Negative Left Patellar Grind Test Negative Left Outpatient Therapy Assessment Impairments Problems/Impairmments Palpation Tenderness,Impaired Range of Motion,Impaired Strength,Impaired Gait Pattern ,Impaired Walking,Impaired Standing,Impaired Stair Climbing,Impaired Squatting, Increased
--- NOTE | 2020-10-23 14:46 | HMH.RHREAS ---
Rehab Reassessment Rehab OP Re-assessment Start: 10/21/20 13:58 Freq: Status: Active Protocol: Document 10/23/20 14:05 ANETA (Rec: 10/23/20 14:46 LEENACIROVIOLETA [id number]) Electronically Signed By Amari Duffy, PT 10/23/20 14:05 Rehab Re-assessment Subjective Subjective PT REPORTS 0-2/10 L KNEE PAIN ON VAS, AND 'I WALKED THROUGH TWO STORES YESTERDAY FOR AT LEAST AN HOUR AND A HALF W/MY BRACE ON'. Objective Objective Notes MMT:L HIP FLX 4/5, L KNEE EXT 4-4+/5, L KNEE FLX 4+/5, L HIP ABD,ADD,EXT 4--4/5 AROM: L KNEE 0-125 TTP:L PES ANSERINE 2/4, L KNEE MEDIAL JT LINE 1-2/4, L MEDIAL POPITEAL 1/4 GAIT: WFL ON LEVEL TERRAIN NO AD Assessment Progress Assessment Progressing as Expected Assessment Notes IMPROVED AROM, STRENGTH, AND TTP Patient goals met STG'S 12/16 LTG'S 10/20 Goals Not Met LTG'S 11/20 Plan Plan PT TO CONT. W/SKILLED P.T. TO MAKE FURTHER IMPROVEMENTS IN AROM, STRENGTH, AND TTP TO ALLOW FOR OPTIMAL FUNCTION Frequency of Therapy 2-3X/WK Duration of therapy 2-4WKS Time and Billing Re-Eval Time 15 Re-Eval Billing Units 0 PHYSICIAN CERTIFICATION: I certify the specified therapy services for Nichole Morales are required, authorized, and reviewed every 30 days.
== END 2020-11-06 15:05 | disposition home or self-care (01) ==
LOC: PT 15:00
PROVIDERS: PCP Nurse Practitioner Family; Visit Provider Nurse Practitioner Family
DX: M25.562 Pain in left knee (principal)
CPT/HCPCS: 97014; 97016; 97033; 97035; 97110; 97163; 97164; G0283

== ENCOUNTER → 2020-12-01 14:47 | Outpatient (CLI) | payer MEDICARE, SELFPAY ==
--- NOTE | 2020-12-01 14:50 | MM_ITS ---
PROCEDURE INFORMATION: Exam: MG Screening 3D Mammography Exam date and time: 12/01/2020 2:50 PM Age: 70 years old Clinical indication: Encounter for screening mammogram for malignant neoplasm of breast TECHNIQUE: Imaging protocol: Screening tomosynthesis and 2D mammography including computer-aided detection (CAD) when performed. COMPARISON: 1. MG MM DIG MAMM DX UNILAT LT CAD 06/18/2020 1:38 PM 2. MG MM DIG MAMM DX UNILAT LT CAD 12/13/2019 2:03 PM FINDINGS: MAMMOGRAPHY: Breast composition: The breast tissue is composed of scattered areas of fibroglandular density. There is limited evaluation of both pectoralis muscles. IMPRESSION: Patient to return for repeat MLO views for better visualization of both pectoralis muscles at which time a full radiographic interpretation will be made ASSESSMENT: BI-RADS Category 0: Incomplete- Need Additional Imaging Evaluation and/or Prior Mammograms for Comparison
== END ==
PROVIDERS: PCP Family Medicine; Visit Provider Internal Medicine Medical Oncology
DX: Z12.31 Encounter for screening mammogram for malignant neoplasm of breast (principal)
CPT/HCPCS: 77063; 77067

== ENCOUNTER → 2020-12-16 13:25 | Outpatient (CLI) | payer MEDICARE, SELFPAY ==
--- NOTE | 2020-12-16 13:31 | XR_ITS ---
PROCEDURE: XR LUMBAR SPINE 6V W BENDING CLINICAL INDICATION: DEGENERATIVE LSP,CLAUDICATION COMPARISON: CR XR LUMBAR SPINE MIN 4V from 03/14/2019 FINDINGS: Normal alignment. Degenerative disc disease L5-S1. 3 mm anterolisthesis L4 on L5. Lateral bending flexion and extension views are obtained. There is 3 mm anterolisthesis of L4 on L5 which does not significantly change in flexion or extension Other findings:Vascular calcification. Mild degenerative changes SI joints. Small right-sided osteophyte inferiorly at L2. IMPRESSION: Degenerative changes. No abnormal subluxation in flexion or extension Dictated by: Jay Figueroa MD 12/16/2020 14:48 Jay Figueroa MD in [place] 12/16/2020 14:48
== END ==
PROVIDERS: PCP Family Medicine; Visit Provider Family Medicine
DX: M48.061 Spinal stenosis, lumbar region without neurogenic claudication (principal); M48.062 Spinal stenosis, lumbar region with neurogenic claudication
CPT/HCPCS: 72114

== ENCOUNTER → 2020-12-18 13:53 | Outpatient (CLI) | payer MEDICARE, SELFPAY ==
--- NOTE | 2020-12-18 13:55 | MM_ITS ---
PROCEDURE: REPEAT VIEW MM Digital Breast Tomosynthesis Included CLINICAL INDICATION: COMPARISON: MG MM DIG SCREENING MAMM BI W/CAD from 12/01/2020 TECHNIQUE: Standard CC and MLO images and 3D Tomosynthesis was obtained. R2 CAD reviewed. FINDINGS: IMPRESSION: BI-RAD Category: FOLLOW-UP: (A letter has been sent to the patient regarding results of the study.) Dictated by: Dr. Tyler Sofia MD 12/30/2020 09:06 Dr. Tyler Sofia MD in [place] 12/30/2020 09:06
== END ==
PROVIDERS: PCP Family Medicine; Visit Provider Internal Medicine Medical Oncology
DX: R92.8 Other abnormal and inconclusive findings on diagnostic imaging of breast (principal)

== ENCOUNTER → 2020-12-28 15:24 | Outpatient (CLI) | payer MEDICARE, SELFPAY ==
[2020-12-28 16:36] LABS: Anion Gap 15.3 mEq/L (5-15); Blood Urea Nitrogen 15 mg/dl (7-17); Calcium 9.2 mg/dl (8.4-10.2); Carbon Dioxide 26 mmol/L (22.0-30.0); Chloride 101 mmol/L (98-107); Estimated Glomerular Filt Rate 44 ml/min (>60); GFR (African American) 54 ML/MIN (>60); Glucose 167 mg/dl (74-100); Potassium 4.3 mmoL/L (3.5-5.1); Sodium 138 mmol/L (136-145)
== END ==
PROVIDERS: Visit Provider Urology
DX: E11.9 Type 2 diabetes mellitus without complications (principal); I10 Essential (primary) hypertension; R60.9 Edema, unspecified; Z79.4 Long term (current) use of insulin
CPT/HCPCS: 36415; 80048

== ENCOUNTER → 2021-01-21 10:40 | Outpatient (CLI) | payer MEDICARE, SELFPAY ==
[2021-01-21 10:53] LABS: Basophils % 0.3 % (0.1-2.0); Eosinophils # 0.1 K/mm3 (0.0-0.4); Hematocrit 37.3 % (37.0-47.0); Hemoglobin 11.8 g/dL (12.2-16.2); Lymphocytes # 1.6 K/mm3 (0.7-4.5); Lymphocytes % 25.6 % (10-50); Mean Corpuscular HGB Conc 31.7 g/dL (31.8-35.4); Mean Corpuscular Hemoglobin 26.7 pg (27.0-31.2); Mean Corpuscular Volume 84.3 fl (81-99); Mean Platelet Volume 7.1 fl (7.4-10.4); Monocytes # 0.3 K/mm3 (0.1-1.0); Neutrophils # 4.2 K/mm3 (1.8-7.8); Neutrophils % 67.1 % (37.0-80.0); Platelet Count 307 K/mm3 (142-424); Red Blood Count 4.43 M/mm3 (4.20-5.40); Red Cell Distribution Width 13.4 % (11.5-17.5); White Blood Count 6.3 K/mm3 (4.8-10.8)
[2021-01-21 12:12] LABS: Alanine Aminotransferase 19 U/L (12-78); Albumin Level 4.4 g/dl (3.5-5.0); Albumin/Globulin Ratio 1.5 (1.1-1.8); Alkaline Phosphatase 58 U/L (38-126); Aspartate Amino Transferase 34 U/L (14-36); Bilirubin,Total 0.6 mg/dl (0.2-1.3); Blood Urea Nitrogen 21 mg/dl (7-17); Calcium 9.1 mg/dl (8.4-10.2); Carbon Dioxide 26 mmol/L (22.0-30.0); Chloride 98 mmol/L (98-107); Estimated Glomerular Filt Rate 49 ml/min (>60); GFR (African American) 59 ML/MIN (>60); Globulin 2.9 g/dL (1.3-3.2); Glucose 154 mg/dl (74-100); Sodium 133 mmol/L (136-145); Total Protein,Serum 7.3 g/dl (6.3-8.2)
== END ==
PROVIDERS: Visit Provider Internal Medicine Medical Oncology
DX: Z85.3 Personal history of malignant neoplasm of breast (principal)
CPT/HCPCS: 36415; 80053; 85025

== ENCOUNTER → 2021-01-28 08:54 | Outpatient (CLI) | payer MEDICARE, SELFPAY ==
--- NOTE | 2021-01-28 08:57 | US_ITS ---
PROCEDURE: US KIDNEY CLINICAL INDICATION: ? KIDNEY LESIONS COMPARISON: US CA RENAL ARTERY DUPLEX from 03/31/2020 FINDINGS: The right kidney is [id number]. No hydronephrosis, cortical thinning, or renal mass or perinephric fluid collection is evident. A 13 x 11 mm cyst is present in the lower pole on right. The left kidney is [id number]. No hydronephrosis, cortical thinning, or renal mass or perinephric fluid collection is evident. 28 x 20 mm cyst lower pole No suspicious solid renal lesions evident. IMPRESSION: Bilateral renal cysts otherwise negative bilateral renal ultrasound. Dictated by: Jay Figueroa MD 01/28/2021 16:38 Jay Figueroa MD in [place] 01/28/2021 16:38
== END ==
PROVIDERS: PCP Family Medicine; Visit Provider Internal Medicine Medical Oncology
DX: R10.9 Unspecified abdominal pain (principal)
CPT/HCPCS: 76770

== ENCOUNTER 2021-02-18 09:00 | Outpatient (RCR) | payer MEDICARE, SELFPAY | END 2021-02-18 09:05 | disposition home or self-care (01) | LOC: PT 09:00 | PROVIDERS: PCP Family Medicine; Visit Provider Orthopaedic Surgery | DX: M54.5 Low back pain (principal) | CPT/HCPCS: 97014; 97110; 97140; 97163; G0283 ==

== ENCOUNTER → 2021-04-12 11:37 | Outpatient (CLI) | payer MEDICARE, SELFPAY ==
--- NOTE | 2021-04-12 | CA_ITS ---
APPROVED REPORT Exam: Pharmacologic Technologist: Savanah Morse Ht: 5 ft 4 in Wt: 215 lbs BSA: 2.02 m2 HR: 76 bpm BP: 199/76 mmHg Indications: CP; CAD Medical History Medications: Asa,,,,, Escitalopram,,,,, Carvedilol,,,,, Lasix,,,,, Lansoprazole,,,,, CloPIdogrel,,,,, Magnesium,,,,, Ezetimbe,,,,, JaRDiance,,,,, Aripirazole,,,,, Evolocumab,,,,, Randazine,,,,, Stress Test Details Test: LEXISCAN HR Resting HR: 74 bpm Max Heart Rate (APMHR): 150 bpm Max HR Achieved: 88 bpm Target HR (85% APMHR): 127 bpm % of APMHR: 58 Recovery HR: 78 bpm BP Resting BP: 199.0/76.0 mmHg Max BP: 205.0/80.0 mmHg Recovery BP: 202.0/77.0 mmHg ECG Clinical Exercise duration: 04:00 min Highest Stage Achieved: Stress ECG Conclusion Blood pressure 120-130's at home. She is anxious here today. No changes. Continue daily blood pressure monitoring. Symptoms: Chest pain, shortness of air with Lexiscan infusion. Resolved in recovery. Arrhythmias/Ectopy: PVCs noted. ST-T Changes: < 1.[address] segment changes. Electronically signed by : Chad Sullivan MD 04/13/2021 06:58:20
--- NOTE | 2021-04-12 11:37 | NM_ITS ---
APPROVED REPORT Exam: Nuclear Stress Test Indication: CAD, CABG, HTN, D.M., HYPERLIPIDEMIA, FM HX., C.P., SOB, SYNCOPE, FATIGUE Patient Location: Outpatient Stress Tech: Savanah Morse ND Tech:Belinda Lorenzana, ARRT, RT (R)(N) Ht: 5 ft 4 in Wt: 215 lbs Bra Size: DD HR: 74 bpm BP: 199/76 mmHg BSA: 2.02 m2 BMI: 36.9 History: CAD, CABG, HTN, D.M., HYPERLIPIDEMIA, FM HX., C.P., SOB, SYNCOPE, FATIGUE Procedure: Patient received a 0.4 mg of intravenous Lexiscan, resting heart rate 74 bpm, resting blood pressure 199/76 mmHg, with Lexiscan maximum heart rate achived was 83 bpm which is Less than 85 % of the maximum predicted heart rate and blood pressure was 171/69 mmHg. With Lexiscan, patient denied any complaint of chest pain. Electrocardiogram Resting electrocardiogram shows sinus rhythm low-voltage QRS complexes nonspecific ST-T changes with Lexiscan there is less than 1.[address] segment depression noted from the baseline EKG. The EKG portion of the Lexiscan is nondiagnostic. Cardiac Stress and Resting SPECT Images: Cardiac Stress and Resting SPECT images were obtained using technetium 99m Myoview 29.4 mCi stress and 10.17 mCi at rest. Gated SPECT for analysis of segmental wall motion and calculation of the ejection fraction also done, prone images were also obtained. Cardiac stress and resting SPECT images show moderate to large sized area of reversible ischemia involving the anterior apical and anterolateral wall, computer derived ejection fraction is over 65% with no regional wall motion abnormality, right ventricle is normal size and contractility. Conclusion: 1. The EKG portion of the Lexiscan Myoview is nondiagnostic. 2. Scintigraphic evidence of reversible ischemia involving the anterior and anterior apical and anterolateral wall, computer derived ejection fraction is over 65% with no regional wall motion abnormality, right ventricle is normal size and contractility. 3. Abnormal Lexiscan Myoview study. Electronically signed by : hCad Sullivan MD 04/13/2021 07:02:56
--- NOTE | 2021-04-12 14:06 | HMH.ITSHM ---
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 []TIZANIDINE RANOLAZINE MAGNESIUM LANSOPRAZOLE INSULIN FUROSEMIDE EZETIMIBE EVOLOCUMAB EMPAGLIFLOZIN CLOPIDOGREL CARVEDILOL ASA ARIPIPRAZOLE MILNACIPRAN
== END ==
PROVIDERS: PCP Family Medicine; Visit Provider Nurse Practitioner Family
DX: E10.8 Type 1 diabetes mellitus with unspecified complications (principal); E78.2 Mixed hyperlipidemia; I10 Essential (primary) hypertension; I20.8 Other forms of angina pectoris; I27.20 Pulmonary hypertension, unspecified; R06.02 Shortness of breath; R60.0 Localized edema; Z95.1 Presence of aortocoronary bypass graft; Z95.5 Presence of coronary angioplasty implant and graft; Z79.4 Long term (current) use of insulin
CPT/HCPCS: 78452; 93017; A9502; J2785

== ENCOUNTER → 2021-05-03 16:08 | Outpatient (CLI) | payer MEDICARE, SELFPAY ==
[2021-05-03 16:53] LABS: Basophils # 0.1 K/mm3 (0-0.2); Basophils % 0.7 % (0.1-2.0); Eosinophils # 0.1 K/mm3 (0.0-0.4); Eosinophils % 1.4 % (0.1-12.0); Hematocrit 37.9 % (37.0-47.0); Hemoglobin 12.2 g/dL (12.2-16.2); Lymphocytes # 2.8 K/mm3 (0.7-4.5); Lymphocytes % 43.2 % (10-50); Mean Corpuscular HGB Conc 32.2 g/dL (31.8-35.4); Mean Corpuscular Hemoglobin 28.5 pg (27.0-31.2); Mean Corpuscular Volume 88.5 fl (81-99); Monocytes # 0.4 K/mm3 (0.1-1.0); Monocytes % 6.7 % (1.7-9.3); Neutrophils # 3.1 K/mm3 (1.8-7.8); Platelet Count 401 K/mm3 (142-424); Red Blood Count 4.28 M/mm3 (4.20-5.40); Red Cell Distribution Width 14.3 % (11.5-17.5); White Blood Count 6.4 K/mm3 (4.8-10.8)
[2021-05-03 17:28] LABS: Anion Gap 12.2 mEq/L (5-15); Blood Urea Nitrogen 15 mg/dl (7-17); Calcium 9.4 mg/dl (8.4-10.2); Carbon Dioxide 30 mmol/L (22.0-30.0); Chloride 100 mmol/L (98-107); Estimated Glomerular Filt Rate 40 ml/min (>60); GFR (African American) 49 ML/MIN (>60); Glucose 209 mg/dl (74-100); Potassium 5.2 mmoL/L (3.5-5.1); Sodium 137 mmol/L (136-145)
== END ==
PROVIDERS: Visit Provider Urology
DX: E10.8 Type 1 diabetes mellitus with unspecified complications (principal); E78.2 Mixed hyperlipidemia; I10 Essential (primary) hypertension; I20.8 Other forms of angina pectoris; I27.20 Pulmonary hypertension, unspecified; R06.02 Shortness of breath; Z95.1 Presence of aortocoronary bypass graft; Z95.5 Presence of coronary angioplasty implant and graft; Z01.812 Encounter for preprocedural laboratory examination; U07.1 COVID-19; I63.9 Cerebral infarction, unspecified
CPT/HCPCS: 36415; 80048; 85025; C9803; U0003; U0005

== ENCOUNTER 2021-05-04 08:51 | Day surgery (SDC) | payer MEDICARE, SELFPAY ==
[2021-05-04] VITALS (12 sets, daily range): BP systolic 143–196; BP diastolic 63–79; PULSE 53–79; RESP 16–20; TEMP 36.7–36.9; O2SAT 95–100; BMI 37.5
--- NOTE | 2021-05-04 07:13 | IR_ITS ---
APPROVED REPORT Patient Location: Outpatient [facility] Worker: VIRGINIA Manley RT (R) PROCEDURES Left heart catheterization Left ventriculogram Selective coronary angiogram Right internal mammary angiography INDICATION Coronary artery disease, History of coronary bypass surgery, Angina pectoris, Abnormal Myoview, Informed consent was obtained prior to the procedure. COMPLICATIONS NONE Estimated Blood Loss: LESS THAN 10 ML TECHNIQUE One percent lidocaine used to anesthetize the right anterior aspect of the wrist. The right radial artery was accessed via the Seldinger technique. A 6 Marshallese sheath was placed in the right radial artery. 2.5 mg of verapamil, 800 mcg of nitroglycerin, 1mg Lidocaine and 5000 U Heparin were given through the arterial sheath. An advantage wire was used to traverse the spastic right radial artery. At this point a 6 Marshallese Poppa catheter could not be advanced therefore the wire was left in place where the distal aspect was in the right subclavian artery. The short hydrophilic sheath was exchanged for a 23 cm hydrophilic sheath. This then allowed passage of the 6 Marshallese Poppa catheter to perform left heart catheterization left ventriculogram and selective coronary angiogram. The catheter was then pulled back and right internal mammary angiography was performed. At the end of the procedure the apparatus was removed the sheath was removed and hemostasis was achieved using TR banding patient was transferred to the postop putting in stable condition. ANGIOGRAPHIC RESULTS The left main artery Normal The left anterior descending artery Is a smaller LAD which does not supply the apex. Proximally there is a smooth 30% stenosis followed by a stent which is widely patent free of in-stent restenosis which has excellent proximal distal transitioning. The remaining LAD proper is small however it does give rise to a large first diagonal artery which is widely patent and originates adjacent to the 30 to 40% proximal LAD stenosis. A second diagonal artery is distal to the proximal LAD stent and is also moderate in size and widely patent The circumflex artery Nondominant and normal The right coronary artery Large and dominant with a stent in the ostial segment which is widely patent with minimal 10 to 20% eccentric in-stent restenosis. Distally there is scant evidence of competitive flow from the right internal mammary artery as it anastomoses into the large posterior descending artery The WANG ventriculogram reveals Hyperdynamic at 70% The left ventricular end-diastolic pressure Elevated at 20 mmHg Right internal mammary artery is patent however the flow is slightly diminished. In the mid to distal portion of the graft is a stent which is patent. There is scant antegrade flow into the posterior descending artery. IMPRESSION Coronary disease as described above Widely patent ostial proximal dominant right coronary stent with excellent distal antegrade flow with angiographic evidence of a scant amount of competitive flow from a patent right internal mammary artery into the posterior descending artery. Mild to moderate proximal LAD disease as described above Hyperdynamic ventricle Elevated LVEDP PLAN 1. I am strongly in favor of medical management to the proximal LAD at this time. This is a smooth atherosclerotic stenosis and should be easily managed medically. Despite the abnormal anterior apical defect I do believe medical management is most warranted. Further supporting this recommendation is to hyperdynamic ventricle and elevated LVEDP. Given patient's atypical chest pain, despite having diabetes, I believe diastolic dysfunction is likely contributing to her angina
== END 2021-05-04 13:55 | disposition home or self-care (01) ==
LOC: CATHLAB 08:52
PROVIDERS: PCP Family Medicine; Visit Provider Internal Medicine
DX: E11.9 Type 2 diabetes mellitus without complications (principal); E78.2 Mixed hyperlipidemia; I10 Essential (primary) hypertension; I27.20 Pulmonary hypertension, unspecified; R06.02 Shortness of breath; Z95.1 Presence of aortocoronary bypass graft; Z95.5 Presence of coronary angioplasty implant and graft; I25.118 Atherosclerotic heart disease of native coronary artery with other forms of angina pectoris
CPT/HCPCS: 93459; 99152; 99153; C1725; C1769; J1644; Q9967

== ENCOUNTER → 2021-05-18 12:30 | Outpatient (CLI) | payer MEDICARE, SELFPAY | PROVIDERS: PCP Family Medicine; Visit Provider Urology | DX: G47.33 Obstructive sleep apnea (adult) (pediatric) (principal); R06.83 Snoring | CPT/HCPCS: G0399 ==

== ENCOUNTER → 2021-05-19 08:09 | Outpatient (CLI) | payer MEDICARE, SELFPAY ==
[2021-05-19 13:36] LABS: Chloride 92 mmol/L (98-107)
[2021-05-19 13:37] LABS: Potassium 4.4 mmoL/L (3.5-5.1); Sodium 131 mmol/L (136-145)
[2021-05-19 13:39] LABS: Blood Urea Nitrogen 27 mg/dl (7-17); Estimated Glomerular Filt Rate 32 ml/min (>60); GFR (African American) 39 ML/MIN (>60)
[2021-05-19 13:40] LABS: Calcium 9.2 mg/dl (8.4-10.2); Glucose 103 mg/dl (74-100)
[2021-05-19 17:49] LABS: Anion Gap 14.4 mEq/L (5-15); Carbon Dioxide 29 mmol/L (22.0-30.0)
== END ==
PROVIDERS: Nurse Practitioner Family; Visit Provider Urology
DX: E11.9 Type 2 diabetes mellitus without complications (principal); E78.5 Hyperlipidemia, unspecified; I10 Essential (primary) hypertension; I20.1 Angina pectoris with documented spasm; I20.8 Other forms of angina pectoris; I27.20 Pulmonary hypertension, unspecified; R06.02 Shortness of breath; R60.9 Edema, unspecified; Z95.1 Presence of aortocoronary bypass graft; Z95.5 Presence of coronary angioplasty implant and graft; Z79.4 Long term (current) use of insulin
CPT/HCPCS: 36415; 80048

== ENCOUNTER → 2021-06-21 12:25 | Outpatient (CLI) | payer MEDICARE, SELFPAY ==
--- NOTE | 2021-06-21 12:42 | CA_ITS ---
FINAL REPORT TECHNIQUE: Color Doppler, duplex Doppler and song scale sonography of the bilateral neck arterial vasculature was performed. Velocities were measured in the carotid arteries. Stenosis evaluation based on the validated velocity criteria. CLINICAL HISTORY: DIZZINESS,HTN,DM,CAD,HLD FINDINGS: The peak systolic velocity of the right common carotid artery is 67 cm/s. The peak systolic velocity of the right internal carotid artery is 97 cm/s and end diastolic velocity 18 cm/s. A small amount of plaque is present. The right external carotid artery is patent. The right vertebral artery is patent with antegrade flow. The peak systolic velocity of the left common carotid artery is 69 cm/s. The peak systolic velocity of the left internal carotid artery is 103 cm/s and end diastolic velocity 18 cm/s. A small amount of plaque is present. The left external carotid artery is patent.The left vertebral artery is patent with antegrade flow. IMPRESSION: Less than 50% bilateral carotid stenoses. Bilateral patent vertebral arteries with antegrade flow. If indicated, CTA or MRA could further evaluate. Reviewed, Interpreted and Dictated by Timothy Zapata III, MD Transcribed by Masoud Velasquez Authenticated by Timothy Zapata III, MD on 06/21/2021 02:17:54 PM [facility]
== END ==
PROVIDERS: PCP Family Medicine; Visit Provider Nurse Practitioner Family
DX: R42 Dizziness and giddiness (principal)
CPT/HCPCS: 93880

== ENCOUNTER → 2021-06-22 15:37 | Outpatient (CLI) | payer MEDICARE, SELFPAY | PROVIDERS: PCP Family Medicine; Visit Provider Nurse Practitioner Family | DX: E11.9 Type 2 diabetes mellitus without complications (principal); E78.5 Hyperlipidemia, unspecified; G47.33 Obstructive sleep apnea (adult) (pediatric); I10 Essential (primary) hypertension; I20.8 Other forms of angina pectoris; R42 Dizziness and giddiness; R94.30 Abnormal result of cardiovascular function study, unspecified; W19.XXXA Unspecified fall, initial encounter; Z95.1 Presence of aortocoronary bypass graft; Z95.5 Presence of coronary angioplasty implant and graft; Z79.4 Long term (current) use of insulin | CPT/HCPCS: 93270 ==

== ENCOUNTER → 2021-07-17 10:04 | Outpatient (CLI) | payer MEDICARE, SELFPAY | PROVIDERS: PCP Family Medicine; Visit Provider Ophthalmology | DX: Z01.812 Encounter for preprocedural laboratory examination (principal); Z11.52 Encounter for screening for COVID-19 | CPT/HCPCS: C9803; U0003; U0005 ==

== ENCOUNTER 2021-07-20 08:32 | Day surgery (SDC) | payer MEDICARE, SELFPAY ==
[2021-07-20 08:45] VITALS: BP 154/73; PULSE 69; RESP 19; TEMP 36.6; O2SAT 98
[2021-07-20 10:40] VITALS: BP 156/75; PULSE 64; RESP 18; TEMP 36.8; O2SAT 99
[2022-03-10 10:57] LABS: POC Glucose,Bedside 174 (70-110)
== END 2021-07-20 10:50 | disposition home or self-care (01) ==
LOC: OUTP 08:32
PROVIDERS: PCP Family Medicine; Visit Provider Ophthalmology
PROC: (CPT 66821; principal; 2021-07-20 09:30)
DX: H26.491 Other secondary cataract, right eye (principal); Z96.1 Presence of intraocular lens; H02.834 Dermatochalasis of left upper eyelid; H02.831 Dermatochalasis of right upper eyelid; F41.9 Anxiety disorder, unspecified; M19.90 Unspecified osteoarthritis, unspecified site; F32.A Depression, unspecified; E11.9 Type 2 diabetes mellitus without complications; I10 Essential (primary) hypertension; E78.5 Hyperlipidemia, unspecified; Z88.0 Allergy status to penicillin; Z88.8 Allergy status to other drugs, medicaments and biological substances
CPT/HCPCS: 66821; 82962

== ENCOUNTER → 2021-08-23 09:58 | Outpatient (CLI) | payer MEDICARE, SELFPAY ==
--- NOTE | 2021-08-23 10:17 | FL_ITS ---
FINAL REPORT CLINICAL HISTORY: . difficulty swallowing fluoro time-1.19 FINDINGS: MODIFIED BARIUM SWALLOW History: Dysphagia. FINDINGS: Fluoroscopy was provided for the speech pathologist to evaluate the swallowing mechanism. The patient was given several different consistencies of barium while the swallow was visualized fluoroscopically. The report of the speech pathologist should be consulted prior to making dietary decisions. FLUOROSCOPY TIME: 1 minute 19 seconds. 13 cine runs were obtained. IMPRESSION: Modified barium swallow under fluoroscopic guidance. Please see the report of the speech pathologist for more detail. Films reviewed , interpreted and dictated by Dr. Zapata. Transcribed by Rikki Josue PA-C. Reviewed, Interpreted and Dictated by Timothy Zapata III, MD Transcribed by BRADY Arenas Authenticated by Timothy Zapata III, MD on 08/25/2021 08:08:45 AM [facility]
--- NOTE | 2021-08-23 10:17 | XR_ITS ---
FINAL REPORT CLINICAL HISTORY: falls, brisk reflexes FINDINGS: CERVICAL SPINE WITH FLEXION EXTENSION VIEWS Multiple views were obtained. There is no acute fracture. There is no malalignment. There is moderate degenerative changes of the lower cervical spine, worse at C5-6 and C6-7. There is moderate right neural foraminal narrowing at C3-C4 and C4-C5. There is mild left neural foraminal narrowing at C3-4, C4-C5, and C5-C6. There is no soft tissue abnormality. There is no abnormal movement with flexion or extension. IMPRESSION: Moderate degenerative disc disease with areas neural foraminal narrowing as described. Reviewed, Interpreted and Dictated by Timothy Zapata III, MD Transcribed by Clarissa Llamas Authenticated by Timothy Zapata III, MD on 08/23/2021 11:25:16 AM [facility]
--- NOTE | 2021-08-23 11:42 | HMH.SLMBS2 ---
Speech & Language Evaluation Speech/Language Mod Barium Swallow Start: 08/23/21 11:32 Freq: once Status: Complete Protocol: Document 08/23/21 11:32 DEAN (Rec: 08/23/21 11:42 DEAN [id number]) General Information General Current Food Consistancy Regular,Thin Liquids Dentition Poor Dentition Oxygen Status Room Air Facial Symmetry Symmetrical Patient Orientation Person,Place,Time,Situation Ability to Follow Directions Excellent Communication Ability No Impairment MBS Recommendations Diet Dietary Recommendations Regular,Thin Liquids Treatment/Strategies Strategy/Precaution Recommend Sitting Upright (90 deg), Double Swallow,Small Bites and Sips,Alternate Liquids/Solids Referrals/Other Recommended Referrals GI Consult Mod Barium Swallow Impressions Summary and Impressions Oral Phase Impression No Impairment (WFL) Pharyngeal Phase Impression Mild Impairment Pharyngeal Phase Summary Mild oral residue with all consistencies trialed. Speech/Language MBS Assessment/Goals/Plan Assessment Date of Evaluation: 08/23/21 Evaluation Type Initial Certification Assessment/Problems Dysphagia per MD order Does Patient Qualify for Service No Qualify/Failure Comment Based on the results of today' s MBSS, patient requires further testing to r/o GI involvement prior to initiation of therapy services if warranted at that time. Recommendations PHYSICIAN CERTIFICATION: The specified therapy services are required, authorized, and reviewed every 30 days. Diet Recommendations Normal Liquid Type Recommendations Normal/Thin SL Swallow Guidelines Reflux precautions Dysphagia Swallow Precautions/Strategies Sitting Upright (90 deg),Small Bites and Sips,Alternate Liquids/Solids Place Food on Either side of Mouth Plan Pt/Guardian verbally ack understanding Yes of dx/prognosis/goals Pt/Guardian verbally ack understanding Yes of/consent to tx prog G -code Required No Education Instructions provided MBSS results and recommendations discussed with patient. Pt/Caregiver able to recall information Able to recall/restate Reinforcement needed No Mod Barium Swallow Setup Exam Setup Radiologist Timothy Zapata Level of Consciousness Awake,Alert,Appropriate, Follows Commands Position (degrees) 90 M
[2021-08-23 11:57] LABS: Thyroid Stimulating Hormone 3.13 uIU/mL (0.465-4.68)
[2021-08-23 12:31] LABS: Vitamin B12 395 pg/mL (239-931)
== END ==
PROVIDERS: PCP Family Medicine; Visit Provider Specialist
DX: R25.1 Tremor, unspecified (principal); R29.2 Abnormal reflex; R29.6 Repeated falls; M54.2 Cervicalgia; R13.10 Dysphagia, unspecified
CPT/HCPCS: 36415; 70371; 72052; 82607; 82746; 84443; 92611

== ENCOUNTER 2021-08-30 14:00 | Outpatient (RCR) | payer MEDICARE, SELFPAY | END 2021-08-30 14:05 | disposition home or self-care (01) | LOC: PT 14:00 | PROVIDERS: PCP Family Medicine; Visit Provider Internal Medicine Cardiovascular Disease | DX: M47.817 Spondylosis without myelopathy or radiculopathy, lumbosacral region (principal); M51.36 Other intervertebral disc degeneration, lumbar region | CPT/HCPCS: 97010; 97014; 97035; 97110; 97140; 97163; G0283 ==

== ENCOUNTER → 2021-09-07 12:05 | Outpatient (CLI) | payer MEDICARE, SELFPAY ==
--- NOTE | 2021-09-07 12:35 | XR_ITS ---
FINAL REPORT CLINICAL HISTORY: EDEMA,SOB,COUGH FINDINGS: Two views of the chest were obtained. There is evidence of median sternotomy The heart size and pulmonary vascularity are within normal limits. No acute pulmonary abnormality is identified. There is no pneumothorax. The bony thorax is intact. IMPRESSION: No active cardiopulmonary disease. Reviewed, Interpreted and Dictated by Timothy Zapata III, MD Transcribed by Elma Hayes Authenticated by Timothy Zapata III, MD on 09/07/2021 02:06:[address] [facility]
[2021-09-07 13:16] LABS: Basophils # 0.1 K/mm3 (0-0.2); Eosinophils # 0.1 K/mm3 (0.0-0.4); Eosinophils % 0.8 % (0.1-12.0); Hematocrit 42.4 % (37.0-47.0); Hemoglobin 13.5 g/dL (12.2-16.2); Lymphocytes # 1.7 K/mm3 (0.7-4.5); Lymphocytes % 30.5 % (10-50); Mean Corpuscular HGB Conc 31.8 g/dL (31.8-35.4); Mean Corpuscular Hemoglobin 28.8 pg (27.0-31.2); Mean Corpuscular Volume 90.5 fl (81-99); Mean Platelet Volume 7.9 fl (7.4-10.4); Monocytes # 0.6 K/mm3 (0.1-1.0); Monocytes % 10.5 % (1.7-9.3); Neutrophils # 3.2 K/mm3 (1.8-7.8); Neutrophils % 57.3 % (37.0-80.0); Platelet Count 338 K/mm3 (142-424); Red Blood Count 4.68 M/mm3 (4.20-5.40); Red Cell Distribution Width 14.5 % (11.5-17.5); White Blood Count 5.6 K/mm3 (4.8-10.8)
[2021-09-07 13:39] LABS: Alanine Aminotransferase 17 U/L (12-78); Albumin Level 4.7 g/dl (3.5-5.0); Albumin/Globulin Ratio 1.8 (1.1-1.8); Alkaline Phosphatase 73 U/L (38-126); Aspartate Amino Transferase 23 U/L (14-36); Bilirubin,Total 0.4 mg/dl (0.2-1.3); Blood Urea Nitrogen 27 mg/dl (7-17); Calcium 9.4 mg/dl (8.4-10.2); Carbon Dioxide 28 mmol/L (22.0-30.0); Chloride 99 mmol/L (98-107); Estimated Glomerular Filt Rate 34 ml/min (>60); GFR (African American) 42 ML/MIN (>60); Globulin 2.6 g/dL (1.3-3.2); Glucose 116 mg/dl (74-100); Sodium 136 mmol/L (136-145); Total Protein,Serum 7.3 g/dl (6.3-8.2)
[2021-09-07 13:48] LABS: NT Pro Brain Natriuretic Pep. 422 pg/mL (0-125)
== END ==
PROVIDERS: PCP Nurse Practitioner Family; Visit Provider Nurse Practitioner Family
DX: R06.02 Shortness of breath (principal); R05.1 Acute cough; R60.9 Edema, unspecified
CPT/HCPCS: 36415; 71046; 80053; 83880; 85025

== ENCOUNTER → 2021-11-10 16:18 | Outpatient (CLI) | payer MEDICARE, SELFPAY ==
[2021-11-10 16:27] LABS: Microscopic, Urine URINE MICROSCOPIC (MICROSCOPIC)
[2021-11-10 16:56] LABS: Basophils # 0.2 K/mm3 (0-0.2); Basophils % 2.8 % (0.1-2.0); Eosinophils # 0.1 K/mm3 (0.0-0.4); Eosinophils % 0.9 % (0.1-12.0); Hematocrit 40.6 % (37.0-47.0); Hemoglobin 13.2 g/dL (12.2-16.2); Lymphocytes # 2.1 K/mm3 (0.7-4.5); Lymphocytes % 36.4 % (10-50); Mean Corpuscular HGB Conc 32.6 g/dL (31.8-35.4); Mean Corpuscular Hemoglobin 29.1 pg (27.0-31.2); Mean Corpuscular Volume 89.5 fl (81-99); Mean Platelet Volume 7.6 fl (7.4-10.4); Monocytes # 0.4 K/mm3 (0.1-1.0); Neutrophils # 3.2 K/mm3 (1.8-7.8); Platelet Count 288 K/mm3 (142-424); Red Blood Count 4.54 M/mm3 (4.20-5.40); White Blood Count 5.9 K/mm3 (4.8-10.8)
[2021-11-10 17:16] LABS: Appearance,Urine CLEAR (Clear); Bilirubin,Urine Negative (Negative); Blood, Urine Negative (Negative); Color,Urine YELLOW (Yellow); Glucose,Urine (UA) 3+ (Negative); Ketones,Urine Negative (Negative); Leukocyte Esterase,Urine TRACE (Negative); Nitrate,Urine Negative (Negative); PH,Urine 5.5 (5.0-8.5); Protein,Urine Negative (Negative); Specific Gravity, Urine >= 1.030 (1.005-1.030); Urobilinogen,Urine 0.2 EU/dl (0.2)
[2021-11-10 17:21] LABS: Creatinine,Urine Random 82 mg/dL (Not Estab.)
[2021-11-10 17:55] LABS: Albumin Level 4.3 g/dl (3.5-5.0); Anion Gap 16.6 mEq/L (5-15); Blood Urea Nitrogen 24 mg/dl (7-17); Calcium 9.8 mg/dl (8.4-10.2); Carbon Dioxide 27 mmol/L (22.0-30.0); Chloride 97 mmol/L (98-107); Estimated Glomerular Filt Rate 40 ml/min (>60); GFR (African American) 49 ML/MIN (>60); Glucose 98 mg/dl (74-100); Phosphorous 5.9 mg/dl (2.5-4.5); Potassium 4.6 mmoL/L (3.5-5.1); Sodium 136 mmol/L (136-145)
[2021-11-10 18:08] LABS: Intact Parathyroid Hormone 99.8 pg/mL (7.5-53.5)
[2021-11-10 18:12] LABS: 25-OH Vitamin D, Total 27.1 ng/mL (30-100)
[2021-11-10 18:58] LABS: Bacteria,Urine Trace /lpf; RBC,Urine Occasional #/hpf (0-3)
== END ==
PROVIDERS: Internal Medicine Nephrology; PCP Nurse Practitioner Family; Visit Provider Psychiatry & Neurology Neurology
DX: N18.32 Chronic kidney disease, stage 3b (principal); E55.9 Vitamin D deficiency, unspecified; R82.90 Unspecified abnormal findings in urine
CPT/HCPCS: 36415; 80069; 81001; 82306; 82570; 83970; 84155; 85025; 87086

== ENCOUNTER 2021-11-12 14:00 | Outpatient (RCR) | payer MEDICARE, SELFPAY | END 2021-11-12 14:05 | disposition home or self-care (01) | LOC: PT 14:00 | PROVIDERS: PCP Nurse Practitioner Family; Visit Provider Orthopaedic Surgery | DX: M54.2 Cervicalgia (principal) | CPT/HCPCS: 97010; 97014; 97035; 97110; 97140; 97163; 97164; G0283 ==

== ENCOUNTER → 2021-11-15 10:22 | Outpatient (POV) | payer MEDICARE, SELFPAY | PROVIDERS: Visit Provider Internal Medicine Nephrology | DX: Z00.00 Encounter for general adult medical examination without abnormal findings (principal) ==

== ENCOUNTER → 2021-12-21 13:13 | Outpatient (CLI) | payer MEDICARE, SELFPAY ==
--- NOTE | 2021-12-21 13:17 | MM_ITS ---
PROCEDURE INFORMATION: Exam: MG Bilateral Screening 3D Mammography Exam date and time: 12/21/2021 1:12 PM Age: 71 years old Clinical indication: Screening. Personal history of left breast cancer, status post lumpectomy and radiation. Her sister had breast cancer. TECHNIQUE: Imaging protocol: Bilateral Screening tomosynthesis and 2D mammography including computer-aided detection (CAD) when performed. COMPARISON: 1. MG REPEAT VIEW MM 12/18/2020 2:05 PM 2. MG MM DIG SCREENING MAMM BI W/CAD 12/01/2020 2:48 PM 3. MG MM DIG MAMM DX UNILAT LT CAD 06/18/2020 1:38 PM 4. MG MM DIG MAMM DX UNILAT LT CAD 12/13/2019 2:03 PM MG SCBI MM Dig screening mamm BI w/CAD 11/13/2017 9:37 AM MG DMSB DIG MAMM-SCREEN AARON 10/13/2015 8:25 AM MG DMSB DIG MAMM-SCREEN AARON 09/09/2013 10:58 AM MG DMSB DIGITAL MAMM-SCREEN BILATERAL 09/03/2012 10:32 AM MG DMSB DIGITAL MAMM-SCREEN BILATERAL 09/08/2011 1:27 PM MG DMSB DIGITAL MAMM-SCREEN BILATERAL 09/14/2010 9:08 AM OT DIGMAMMDX MAMMOGRAM DX-TOOLMAKER GRADE THREE N/C 02/14/2008 10:30 AM OT DIGMAMMS MAMMOGRAM SCREEN-TOOLMAKER GRADE THREE N/C 01/30/2008 10:30 AM FINDINGS: MAMMOGRAPHY: Breast composition: There are scattered areas of fibroglandular density. Mass: Oval 0.7 cm mass in the right inner quadrant, middle to posterior 3rd, CC frame 52 and MLO frame 70 - this is more likely related to the skin than superficial breast soft tissues. Architectural distortion: Stable mild architectural distortion in the left breast. No suspicious architectural distortion. Calcifications: No suspicious calcifications. Asymmetric density: None. Skin thickening: Stable mild skin thickening. Axillary adenopathy: None. IMPRESSION: Patient to be recalled for further evaluation of possible mass which may be related to a finding in the skin, correlate clinically and if related to the skin and oval marker can be placed with repeat CC and MLO views, and if not related to the skin, recommend right diagnostic spot compression in CC and MLO and right breast ultrasound, for further evaluation. ASSESSMENT: BI-RADS Category 0: Incomplete- Need Additional Imaging Evaluation and/or Prior Mammograms for Comparison
== END ==
PROVIDERS: PCP Nurse Practitioner Family; Visit Provider Nurse Practitioner Family
DX: Z12.31 Encounter for screening mammogram for malignant neoplasm of breast (principal); Z85.3 Personal history of malignant neoplasm of breast
CPT/HCPCS: 77063; 77067

== ENCOUNTER → 2022-01-05 13:06 | Outpatient (CLI) | payer MEDICARE, SELFPAY ==
--- NOTE | 2022-01-05 13:11 | MM_ITS ---
PROCEDURE INFORMATION: Exam: US Right Breast, Complete MG Right Diagnostic Breast Tomosynthesis Exam date and time: 01/05/2022 1:14 PM Age: 71 years old Clinical indication: Patient recalled on the basis of a screening mammogram for further evaluation; Right breast; mass TECHNIQUE: Imaging protocol: Complete ultrasound of all four quadrants of the Right breast and the retroareolar regions, including ultrasound of the axilla when performed. Right Diagnostic tomosynthesis and 2D mammography including computer-aided detection (CAD) when performed. Unilateral or bilateral exam. COMPARISON: 1. MG MM DIG SCREENING MAMM BI W/CAD 12/21/2021 1:12 PM 2. MG REPEAT VIEW MM 12/18/2020 2:05 PM FINDINGS: MAMMOGRAPHY: Digital diagnostic spot compression views of the right breast demonstrate normal overlapping fibroglandular structures without persistent mass or asymmetry identified. ULTRASOUND: Sonographic images of the right breast including the retroareolar region, all 4 quadrants and the axilla do not demonstrate any solid or cystic masses. No architectural distortion or acoustical shadowing. No skin thickening or axillary adenopathy. IMPRESSION: No mammographic or sonographic evidence of malignancy. Annual bilateral mammographic screening is recommended unless otherwise clinically indicated. ASSESSMENT: BI-RADS Category 1: Negative
== END ==
PROVIDERS: PCP Nurse Practitioner Family; Visit Provider Nurse Practitioner Family
DX: R92.8 Other abnormal and inconclusive findings on diagnostic imaging of breast (principal)
CPT/HCPCS: 76641; 77061; 77065; G0279

== ENCOUNTER → 2022-01-10 10:09 | Outpatient (CLI) | payer MEDICARE, SELFPAY ==
[2022-01-10 10:54] LABS: Basophils # 0.1 K/mm3 (0-0.2); Basophils % 0.9 % (0.1-2.0); Eosinophils # 0.1 K/mm3 (0.0-0.4); Eosinophils % 1.2 % (0.1-12.0); Hematocrit 41.6 % (37.0-47.0); Hemoglobin 13.2 g/dL (12.2-16.2); Lymphocytes # 1.7 K/mm3 (0.7-4.5); Lymphocytes % 30.7 % (10-50); Mean Corpuscular HGB Conc 31.8 g/dL (31.8-35.4); Mean Corpuscular Hemoglobin 29.5 pg (27.0-31.2); Mean Corpuscular Volume 92.5 fl (81-99); Mean Platelet Volume 7.9 fl (7.4-10.4); Monocytes # 0.3 K/mm3 (0.1-1.0); Neutrophils # 3.4 K/mm3 (1.8-7.8); Neutrophils % 61.3 % (37.0-80.0); Platelet Count 353 K/mm3 (142-424); Red Cell Distribution Width 14.2 % (11.5-17.5); White Blood Count 5.5 K/mm3 (4.8-10.8)
[2022-01-10 11:11] LABS: Alanine Aminotransferase 19 U/L (12-78); Albumin Level 4.4 g/dl (3.5-5.0); Albumin/Globulin Ratio 1.7 (1.1-1.8); Alkaline Phosphatase 87 U/L (38-126); Anion Gap 13.5 mEq/L (5-15); Aspartate Amino Transferase 26 U/L (14-36); Bilirubin,Total 0.3 mg/dl (0.2-1.3); Blood Urea Nitrogen 21 mg/dl (7-17); Calcium 9.6 mg/dl (8.4-10.2); Carbon Dioxide 27 mmol/L (22.0-30.0); Chloride 99 mmol/L (98-107); Estimated Glomerular Filt Rate 37 ml/min (>60); GFR (African American) 45 ML/MIN (>60); Globulin 2.6 g/dL (1.3-3.2); Glucose 129 mg/dl (74-100); Potassium 4.5 mmoL/L (3.5-5.1); Sodium 135 mmol/L (136-145)
== END ==
PROVIDERS: PCP Nurse Practitioner Family; Visit Provider Internal Medicine Medical Oncology
DX: C50.911 Malignant neoplasm of unspecified site of right female breast (principal)
CPT/HCPCS: 36415; 80053; 85025

== ENCOUNTER → 2022-01-18 11:48 | Outpatient (CLI) | payer MEDICARE, SELFPAY | PROVIDERS: PCP Nurse Practitioner Family; Visit Provider Nurse Practitioner Family | DX: R30.0 Dysuria (principal) | CPT/HCPCS: 87086 ==

== ENCOUNTER → 2022-01-21 09:14 | Outpatient (CLI) | payer MEDICARE, SELFPAY ==
--- NOTE | 2022-01-21 09:17 | US_ITS ---
PROCEDURE INFORMATION: Exam: US Left Breast, Complete Exam date and time: 01/21/2022 9:28 AM Age: 71 years old Clinical indication: Left Nipple discharge TECHNIQUE: Imaging protocol: Complete ultrasound of all four quadrants of the Left breast and the retroareolar regions, including ultrasound of the axilla when performed. COMPARISON: US BREAST LT COMPLETE 06/18/2020 2:56 PM FINDINGS: Breast: Sonographic images of the left breast including the retroareolar region, all 4 quadrants and the axilla do not demonstrate any solid or cystic masses. No suspicious architectural distortion or acoustical shadowing. Postoperative change subtending a scar in the left upper outer quadrant. No skin thickening or axillary adenopathy. IMPRESSION: No sonographic evidence of malignancy. Annual mammographic screening is recommended in the absence of suspicious clinical findings. Further evaluation of nipple discharge if spontaneous and clear and/or hemorrhagic may be obtained with breast MRI. ASSESSMENT: BI-RADS Category 2: Benign
== END ==
PROVIDERS: PCP Nurse Practitioner Family; Visit Provider Internal Medicine Medical Oncology
DX: R92.8 Other abnormal and inconclusive findings on diagnostic imaging of breast (principal); N64.52 Nipple discharge; Z85.3 Personal history of malignant neoplasm of breast
CPT/HCPCS: 76641

== ENCOUNTER 2022-03-01 13:13 | Emergency (ER) | payer MEDICARE, SELFPAY ==
[2022-03-01] VITALS (8 sets, daily range): BP systolic 114–172; BP diastolic 47–66; PULSE 64–72; RESP 12–16; TEMP 36.9; O2SAT 95–100; BMI 33.7
--- NOTE | 2022-03-01 13:22 | ECG_ITS ---
APPROVED REPORT Exam: Resting ECG HR:72 bpm ECG Measurements Heart Rate 72 AXES ME 183 P 57 QRSd 96 QRS 4 QT 332 T 61 QTc 356 Conclusion SINUS RHYTHM LOW QRS VOLTAGE IN PRECORDIAL LEADS [QRS DEFLECTION < 1.0 mV IN CHEST LEADS] INCOMPLETE RIGHT BUNDLE BRANCH BLOCK [90+ ms QRS DURATION, TERMINAL R IN V1/V2, 40+ ms S IN I/aVL/V4/V5/V6] NONSPECIFIC T-WAVE ABNORMALITY BORDERLINE ECG UNCONFIRMED REPORT Electronically signed by : Maxx Wooten MD 03/01/2022 21:04:44
--- NOTE | 2022-03-01 13:31 | HMH.EDGENADL ---
Discharge Plan Disposition Patient Disposition: Home, Self-Care Condition: Good Chief Complaint: Fall Prescriptions Prescriptions: No Action aspirin [Adult Low Dose Aspirin] 81 mg tablet,delayed release (DR/EC) 81 mg PO DAILY ezetimibe 10 mg tablet 10 mg PO DAILY 90 Days magnesium 250 mg tablet 500 mg PO DAILY lansoprazole 30 mg capsule,delayed release(DR/EC) 30 mg PO DAILY Novolin 70/30 U-100 Insulin 100 unit/mL (70-30) suspension 30 unit SQ BID Rx Instructions: 48 in AM 38 in PM Jardiance 10 mg tablet 10 mg PO DAILY (DME) blood-glucose meter [Accu-Chek Guide Me Glucose Mtr] [facility] See Rx Instructions .ROUTE .MEDSUPPLY Qty: 1 Rx Instructions: As directed verapamil 120 mg capsule,ext rel. pellets 24 hr 120 mg PO DAILY Qty: 90 1RF ranolazine 500 mg tablet extended release 12 hr 1,000 mg PO BID Qty: 360 2RF evolocumab 140 mg/mL pen injector 140 mg SQ Q2W Qty: 2 12RF furosemide 20 mg tablet See Rx Instructions .ROUTE .COMPLEX Qty: 60 11RF Dose Instruction: TAKE 2 TABLETS BY MOUTH ONCE DAILY FOR EDEMA Rx Instructions: TAKE 2 TABLETS BY MOUTH ONCE DAILY FOR EDEMA carvedilol 25 mg tablet 25 mg PO BID Qty: 180 3RF clopidogrel 75 mg tablet 75 mg PO DAILY Qty: 30 5RF escitalopram oxalate 20 MG tablet 20 mg PO DAILY milnacipran 50 MG tablet 50 mg PO BID Referrals Follow up/Referrals: Nola Fay APRN [Primary Care Provider] - See instructions Activity Restrictions/Add. Instructions Additional Instructions/Restrictions: ADDITIONAL INSTRUCTIONS FOR COVID-19: Rest, drink plenty of fluids. Tylenol or Ibuprofen for fever and/or aches and pains. Monitor your symptoms. IF YOU HAVE AN EMERGENCY WARNING SIGN (INCLUDING TROUBLE BREATHING), SEEK EMERGENCY MEDICAL CARE IMMEDIATELY. COVID-19 Isolation: People with COVID-19 should isolate for 5 days. Then if they are asymptomatic (no symptoms) or their symptoms are resolving (without fever for 24 hours), follow that by 5 days of wearing a mask when around others to minimize the risk of infecting people you encounter. If you test positive for COVID-19 and never develop symptoms, day 0 is the day of your positive viral test (based on the date you were tested) and day 1 is the first full day after your positive test. If you develop symptoms after testing positive, your 5-day isolation period must start over. Day 0 is your first day of symptoms. Day 1 is the first full day after your symptoms developed. What to do: Stay in a separate room from other household members, if possible. Use a separate bathroom, if possible. Avoid contact with other members of the household and pets. Don?t share personal household items, like cups, towels, and utensils. Wear a mask when around other people if able. Clinical Impressions Clinical Impression: Dizziness, Fall, Hematoma of occipital region of scalp, Cervical strain, COVID-19 virus infection Instructions Patient Instructions: DI for COVID-19 (Suspected or Confirmed ), DI for Closed Head Injury, DI for Neck Sprain, How to Prevent Falls, DI for Dizziness-Nonvertigo Discharge ED Provider: Desean [facility] Adult HPI General Chief complaint: Fall Stated complaint: Fall, Syncope Time Seen by Provider: 03/01/22 13:55 Mode of Arrival: Wheelchair Source of Information: Patient Limitations: No Limitations Description of Symptoms (Recalled from ER Triage Doc. by RN): Pt to ED per stretcher via [facility] staff from [facility]. 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 Advises that as she was walking in she become dizzy, developed tunnel vision and passed out, causing her to fall onto her bottom on the concrete, falling back and hitting her head as well. Pt c/o continuation of dizziness and tunnel vision at this time along with a WAYNE. Denies N/V, neck pain, back pain, pelvic pain, hip pain. History
--- NOTE | 2022-03-01 14:01 | CT_ITS ---
FINAL REPORT TECHNIQUE: Axial images were obtained of the cervical spine by computed tomography. Coronal and sagittal reconstruction process performed. This study was performed with techniques to keep radiation doses as low as reasonably achievable (ALARA). Individualized dose reduction techniques using automated exposure control or adjustment of mA and/or kV according to the patient''s size were employed. CLINICAL HISTORY: Pt fell @ hospital stairs, pain in Rt side cervical radiating up neck into base of skull. Vertigo FINDINGS: No fracture is identified. There is moderate disc space narrowing at C4-5, C5-6, C6-7, and C7-T1. There is mild reversal of the cervical lordosis. C4-5: Endplate hypertrophy is present with moderate left neural foraminal narrowing. C5-6: Endplate hypertrophy is present with moderate left neural foraminal narrowing. C6-7: No significant canal stenosis or neural foraminal narrowing. C7-T1: No significant canal stenosis or neural foraminal narrowing. IMPRESSION: No fracture identified. Endplate hypertrophy at C4-5 and C5-6 with moderate left neural foraminal narrowing. Reviewed, Interpreted and Dictated by Wiley Jacobo MD Transcribed by Nurys Brown Authenticated and [facility]
--- NOTE | 2022-03-01 14:01 | CT_ITS ---
FINAL REPORT TECHNIQUE: Axial CT images were performed through the head. Coronal reformatted images were submitted. This study was performed with techniques to keep radiation doses as low as reasonably achievable (ALARA). Individualized dose reduction techniques using automated exposure control or adjustment of mA and/or kV according to the patient's size were employed. CLINICAL HISTORY: Pt fell @ hospital steps, WAYNE w pain @ occipital lobe, WAYNE in frontal lobe. C/o tunnel vision immediately after fall. FINDINGS: There is mild to moderate atrophy. There is proportionate ventriculomegaly. There is mild decreased attenuation in the deep white matter. There is no evidence of hemorrhage. There is no mass or edema identified. There is no abnormal extra-axial fluid seen. The sinuses are well aerated. There is a posterior midline scalp hematoma. There is no acute osseous abnormality. IMPRESSION: No acute intracranial process. Reviewed, Interpreted and Dictated by Wiley Jacobo MD Transcribed by Masoud Velasquez Authenticated and [facility]
--- NOTE | 2022-03-01 14:06 | XR_ITS ---
FINAL REPORT CLINICAL HISTORY: cough COMPARISON: 09/07/2021 FINDINGS: SINGLE-VIEW CHEST The heart is in the upper limits of normal in size. There is a single median sternotomy wire. There is scarring at the right lung base. The left lung is clear. There is no pneumothorax. IMPRESSION: No acute cardiopulmonary process. Reviewed, Interpreted and Dictated by Wiley Jacobo MD Transcribed by Nurys Brown Authenticated and [facility]
[2022-03-01 14:10] LABS: Influenza A, PCR Not Detected (NotDetected); Influenza B, PCR Not Detected (NotDetected)
[2022-03-01 14:12] LABS: Chloride 96 mmol/L (98-107); Potassium 4.5 mmoL/L (3.5-5.1); Sodium 138 mmol/L (136-145)
[2022-03-01 14:15] LABS: Alanine Aminotransferase 20 U/L (12-78); Albumin Level 4.5 g/dl (3.5-5.0); Albumin/Globulin Ratio 1.6 (1.1-1.8); Alkaline Phosphatase 88 U/L (38-126); Anion Gap 19.5 mEq/L (5-15); Aspartate Amino Transferase 37 U/L (14-36); Bilirubin,Total 0.3 mg/dl (0.2-1.3); Blood Urea Nitrogen 20 mg/dl (7-17); Carbon Dioxide 27 mmol/L (22.0-30.0); Creatinine Clearance Estimated 56 mL/min (50-200); Estimated Glomerular Filt Rate 40 ml/min (>60); GFR (African American) 49 ML/MIN (>60); Globulin 2.9 g/dL (1.3-3.2); Total Protein,Serum 7.4 g/dl (6.3-8.2)
[2022-03-01 14:16] LABS: Calcium 8.8 mg/dl (8.4-10.2); Glucose 123 mg/dl (74-100)
[2022-03-01 14:19] LABS: Basophils % 0.5 % (0.1-2.0); Eosinophils # 0.1 K/mm3 (0.0-0.4); Eosinophils % 0.8 % (0.1-12.0); Hematocrit 43.5 % (37.0-47.0); Hemoglobin 13.9 g/dL (12.2-16.2); Lymphocytes # 1.5 K/mm3 (0.7-4.5); Lymphocytes % 26.2 % (10-50); Mean Corpuscular HGB Conc 31.9 g/dL (31.8-35.4); Mean Corpuscular Volume 94.1 fl (81-99); Mean Platelet Volume 7.9 fl (7.4-10.4); Monocytes # 0.4 K/mm3 (0.1-1.0); Monocytes % 6.3 % (1.7-9.3); Neutrophils # 3.7 K/mm3 (1.8-7.8); Neutrophils % 66.2 % (37.0-80.0); Platelet Count 289 K/mm3 (142-424); Red Blood Count 4.62 M/mm3 (4.20-5.40); Red Cell Distribution Width 14.1 % (11.5-17.5); White Blood Count 5.7 K/mm3 (4.8-10.8)
[2022-03-01 14:32] LABS: Troponin I < 0.01 ng/ml (0.00-0.034)
[2022-03-01 14:57] LABS: Coronavirus 19, PCR Detected (NotDetected)
--- NOTE | 2022-03-01 15:01 | PC.NURSE ---
pt using the bedside commode
--- NOTE | 2022-03-01 15:06 | PC.NURSE ---
assisted pt back to bed; gave warm blanket
== END 2022-03-01 16:30 | disposition home or self-care (01) ==
PROVIDERS: Emergency Provider Emergency Medicine; PCP Nurse Practitioner Family
DX: S00.03XA Contusion of scalp, initial encounter (principal); U07.1 COVID-19; S16.1XXA Strain of muscle, fascia and tendon at neck level, initial encounter; R42 Dizziness and giddiness; W18.39XA Other fall on same level, initial encounter; Z79.82 Long term (current) use of aspirin; Z79.4 Long term (current) use of insulin; Z79.899 Other long term (current) drug therapy; Z88.0 Allergy status to penicillin; Z88.8 Allergy status to other drugs, medicaments and biological substances; E11.9 Type 2 diabetes mellitus without complications; K21.9 Gastro-esophageal reflux disease without esophagitis; M79.7 Fibromyalgia
CPT/HCPCS: 36415; 70450; 71045; 72125; 80053; 84484; 85025; 93005; 99285; C9803; U0003; U0005

== ENCOUNTER 2022-03-23 09:03 | Observation (INO) | payer MEDICARE, SELFPAY ==
[2022-03-23] VITALS (13 sets, daily range): BP systolic 115–178; BP diastolic 53–77; PULSE 67–72; RESP 13–19; TEMP 36.5–37.1; O2SAT 96–100; BMI 34.3
--- NOTE | 2022-03-23 09:03 | ECG_ITS ---
APPROVED REPORT Exam: Resting ECG HR:75 bpm ECG Measurements Heart Rate 75 AXES OK 197 P 71 QRSd 83 QRS 84 QT 388 T 81 QTc 417 Conclusion SINUS RHYTHM LOW QRS VOLTAGE IN PRECORDIAL LEADS [QRS DEFLECTION Old poor r wave progression ABNORMAL ECG UNCONFIRMED REPORT Electronically signed by : Maxx Wooten MD 03/23/2022 13:56:57
--- NOTE | 2022-03-23 09:08 | PC.NURSE ---
Limb alert band and allergy band placed on patient left wrist by Rachelle MCKEON
--- NOTE | 2022-03-23 09:10 | HMH.EDGENADL ---
Discharge Plan Disposition Patient Disposition: Admitted As Inpatient Condition: Good Prescriptions Prescriptions: No Action aspirin [Adult Low Dose Aspirin] 81 mg tablet,delayed release (DR/EC) 81 mg PO DAILY ezetimibe 10 mg tablet 10 mg PO DAILY 90 Days magnesium 250 mg tablet 500 mg PO DAILY lansoprazole 30 mg capsule,delayed release(DR/EC) 30 mg PO DAILY Novolin 70/30 U-100 Insulin 100 unit/mL (70-30) suspension 30 unit SQ BID Rx Instructions: 48 in AM 38 in PM Jardiance 10 mg tablet 10 mg PO DAILY (DME) blood-glucose meter [Accu-Chek Guide Me Glucose Mtr] [facility] See Rx Instructions .ROUTE .MEDSUPPLY Qty: 1 Rx Instructions: As directed verapamil 120 mg capsule,ext rel. pellets 24 hr 120 mg PO DAILY Qty: 90 1RF ranolazine 500 mg tablet extended release 12 hr 1,000 mg PO BID Qty: 360 2RF evolocumab 140 mg/mL pen injector 140 mg SQ Q2W Qty: 2 12RF furosemide 20 mg tablet See Rx Instructions .ROUTE .COMPLEX Qty: 60 11RF Dose Instruction: TAKE 2 TABLETS BY MOUTH ONCE DAILY FOR EDEMA Rx Instructions: TAKE 2 TABLETS BY MOUTH ONCE DAILY FOR EDEMA clopidogrel 75 mg tablet 75 mg PO DAILY Qty: 30 5RF carvedilol 25 mg tablet 12.5 mg PO BID Qty: 180 3RF escitalopram oxalate 20 MG tablet 20 mg PO DAILY milnacipran 50 MG tablet 50 mg PO BID Clinical Impressions Clinical Impression: Chest pain, Chronic renal insufficiency Discharge ED Provider: Cristofer Palacios Adult HPI General Chief complaint: Chest Pain Stated complaint: chest pain Time Seen by Provider: 03/23/22 09:10 Mode of Arrival: Wheelchair History of Present Illness HPI narrative: 71-year-old female with past medical history of coronary artery disease status post coronary artery bypass graft in 2019, with subsequent heart catheterization last year in November with stenting of venous graft. She is referred from the cardiology office where she was being seen for chest pain. She reports central chest pain that occasionally radiates up into the left shoulder, onset about 4 days ago but worse with exertion and associated with shortness of breath, nausea. She denies vomiting, diaphoresis, numbness, tingling, leg swelling, fevers chills cough or other symptoms. Initial EKG in the office did not demonstrate any acute ischemic changes. She is on aspirin and Plavix which she reports compliance with. She follows with Dr. Betts. Related Data Home Medications Medication Instructions Recorded Confirmed aspirin 81 mg tablet,delayed 81 mg PO DAILY heart health 11/22/17 03/23/22 release (Adult Low Dose Aspirin) ezetimibe 10 mg tablet 10 mg PO DAILY Cholesterol 90 days 11/22/17 03/23/22 milnacipran 50 mg tablet 50 mg PO BID fibromyalgia 02/05/18 03/23/22 magnesium 250 mg tablet 500 mg PO DAILY Supplement 07/23/19 03/23/22 lansoprazole 30 mg capsule,delayed 30 mg PO DAILY GERD 11/06/19 03/23/22 release escitalopram oxalate 20 mg tablet 20 mg PO DAILY mood 06/17/20 03/23/22 empagliflozin 10 mg tablet 10 mg PO DAILY Diabetes 03/29/21 03/23/22 (Jardiance) insulin human U-100 NPH-regulr 30 unit SQ BID Diabetes 05/26/21 03/23/22 70-30 mix 100 unit/mL subcutaneous susp (Novolin 70/30 U-100 Insulin) blood-glucose meter (Accu-Chek #1 ea 01/20/22 03/23/22 Guide Ri Glucose Meter) Previous Rx's Medication Instructions Recorded evolocumab 140 mg/mL subcutaneous 140 mg SQ Q2W cholesterol #2 mL 08/24/21 pen injector furosemide 20 mg tablet See Rx Instructions .Route 01/27/22 .COMPLEX #60 tabs ranolazine 500 mg tablet,extended 1,000 mg PO BID #360 tabs 02/02/22 release,12 hr verapamil 120 mg 24 hr 120 mg PO DAILY #90 caps 02/02/22 capsule,extended release clopidogrel 75 mg tablet 75 mg PO DAILY Blood thinner #30 02/22/22 tabs carvedilol 25 mg tablet 12.5 mg PO BID High blood pressure 03/04/22 #180 tabs Allergies Al
--- NOTE | 2022-03-23 09:19 | XR_ITS ---
FINAL REPORT CLINICAL HISTORY: SOB/CP COMPARISON: 03/01/2022 FINDINGS: SINGLE-VIEW CHEST The heart size is normal. The patient is status post median sternotomy. There are mild bibasilar opacities, favor atelectasis over pneumonia. There is no pneumothorax. IMPRESSION: Bibasilar opacities, favor atelectasis over pneumonia. Reviewed, Interpreted and Dictated by Timothy Zapata III, MD Transcribed by Nurys Brown Authenticated and [facility]
[2022-03-23 09:31] LABS: Basophils # 0.1 K/mm3 (0-0.2); Eosinophils % 0.9 % (0.1-12.0); Hematocrit 43.9 % (37.0-47.0); Hemoglobin 14.3 g/dL (12.2-16.2); Lymphocytes # 1.6 K/mm3 (0.7-4.5); Lymphocytes % 34.4 % (10-50); Mean Corpuscular HGB Conc 32.5 g/dL (31.8-35.4); Mean Corpuscular Hemoglobin 30.3 pg (27.0-31.2); Mean Corpuscular Volume 93.2 fl (81-99); Mean Platelet Volume 7.4 fl (7.4-10.4); Monocytes # 0.3 K/mm3 (0.1-1.0); Monocytes % 6.5 % (1.7-9.3); Neutrophils # 2.6 K/mm3 (1.8-7.8); Neutrophils % 56.1 % (37.0-80.0); Platelet Count 321 K/mm3 (142-424); Red Cell Distribution Width 13.9 % (11.5-17.5); White Blood Count 4.7 K/mm3 (4.8-10.8)
[2022-03-23 09:32] LABS: Chloride 97 mmol/L (98-107); Potassium 4.9 mmoL/L (3.5-5.1); Sodium 137 mmol/L (136-145)
--- NOTE | 2022-03-23 09:32 | PC.NURSE ---
Patient requested us call her to let her know she was in the ER. We called ; is aware.
[2022-03-23 09:34] LABS: Alanine Aminotransferase 17 U/L (12-78); Aspartate Amino Transferase 31 U/L (14-36); Blood Urea Nitrogen 21 mg/dl (7-17); Estimated Glomerular Filt Rate 37 ml/min (>60); GFR (African American) 45 ML/MIN (>60)
[2022-03-23 09:35] LABS: Albumin Level 4.5 g/dl (3.5-5.0); Albumin/Globulin Ratio 1.5 (1.1-1.8); Alkaline Phosphatase 118 U/L (38-126); Anion Gap 13.9 mEq/L (5-15); Bilirubin,Total 0.4 mg/dl (0.2-1.3); Calcium 9.2 mg/dl (8.4-10.2); Carbon Dioxide 31 mmol/L (22.0-30.0); Glucose 112 mg/dl (74-100); Magnesium 2.3 mg/dl (1.6-2.3); Total Protein,Serum 7.5 g/dl (6.3-8.2)
[2022-03-23 09:42] LABS: Creatinine Clearance Estimated 53 mL/min (50-200)
[2022-03-23 09:44] LABS: NT Pro Brain Natriuretic Pep. 240 pg/mL (0-125)
--- NOTE | 2022-03-23 09:45 | PC.NURSE ---
on the phone with
[2022-03-23 09:47] LABS: Troponin I < 0.01 ng/ml (0.00-0.034)
--- NOTE | 2022-03-23 09:47 | PC.NURSE ---
pt only given 243mg of aspirin d/t pt taking 81mg this morning. notified
--- NOTE | 2022-03-23 09:50 | EXP.CARD.CON ---
History of Present Illness History of Present Illness Consult date: 03/23/22 Requesting physician: Cristofer Palacios Consult reason: chest pain Chief complaint: chest pain Additional Medical History:: Significant past medical hx: CAD-Hx of CABG (right internal mammary artery in situ to left greater saphenous vein composite graft to prox RCA) in 05/2019, BRITTANY (11/2019), BRITTANY: 08/2020 to right internal mammary artery supplying and napaimute RCA. Medical management in 04/2021. JEFFREY-bilateral ICA's less than 50% HLD HTN JANIS DM [facility] 05/02/2022: IMPRESSION Coronary disease as described above Widely patent ostial proximal dominant right coronary stent with excellent distal antegrade flow with angiographic evidence of a scant amount of competitive flow from a patent right internal mammary artery into the posterior descending artery. Mild to moderate proximal LAD disease as described above Hyperdynamic ventricle Elevated LVEDP PLAN 1. I am strongly in favor of medical management to the proximal LAD at this time.? This is a smooth atherosclerotic stenosis and should be easily managed medically.? Despite the abnormal anterior apical defect I do believe medical management is most warranted.? Further supporting this recommendation is to hyperdynamic ventricle and elevated LVEDP.? Given patient's atypical chest pain, despite having diabetes, I believe diastolic dysfunction is likely contributing to her angina and improving untreated the diastolic dysfunction should improve her symptoms 2. LDL less than 55 3. Aggressive risk factor modification 4. If patient continues to experience recalcitrant angina pectoris the LAD is suitable for stenting however it would involve bifurcating a large angiographically normal first diagonal artery therefore medical management is most warranted Echo 03/2020 Conclusion 1.? Melena left atrium, normal left ventricular size, mild concentric left ventricular hypertrophy, visually estimated ejection fraction 55% with no regional wall motion abnormality, grade 1 diastolic dysfunction seen with tissue Doppler evidence of raise left atrial pressure. 2.? Thickened and calcified aortic valve without aortic stenosis, mild aortic insufficiency. 3.? Mild mitral and tricuspid regurgitation. 4.? No significant pericardial effusion noted. History of present illness: 71 year old white female presented to ED from cardiology office with complaint of persistent midsternal to left sided chest pressure that varies in intensity, associated with soa and some mild nausea since Monday afternoon. Patient was sent to ER for further eval from cards office. Initial trop negative. EKG negative for acute ischemic changes. creatinine slightly elevated at 1.4. Patient reports mild chest pressure currently. PFSH PFS Medical History Abnormal cardiovascular stress test Angina pectoris Atypical angina Chest pain Daytime somnolence Diastolic dysfunction Edema Fatigue Restless sleeper Surgical History Stented coronary artery Social History Smoking Status: Current every day smoker second hand exposure: No alcohol intake: never counseling provided: none substance use type: denies use current occupational status: retired Travel in the last 8 weeks: Inside the [place] household members: spouse housing: house number of children: 4 current occupational exposures/hazards: No caffeine: Yes Review of Systems Review of Systems Review of systems:: pertinent systems reviewed and negative unless documented below Constitutional Constitutional: Reports system reviewed and no additional complaints, except as documented *Cardiovascular Cardiovascular: Reports chest pain and Reports dyspnea *Respiratory Respiratory: Reports system reviewed and no additional complaints, except as
--- NOTE | 2022-03-23 10:04 | PC.NURSE ---
Patient has been clipped and all personal belongings are in person belonging bag except for cell phone and glasses. Glasses are on patient and phone is with patient's
--- NOTE | 2022-03-23 10:07 | PC.NURSE ---
hospitalist at the bedside
--- NOTE | 2022-03-23 10:09 | PC.NURSE ---
cath consent signed by at the bedside per patient request. pt gives verbal consent for to sign consent form.
--- NOTE | 2022-03-23 10:40 | PC.NURSE ---
remains at the bedside. no needs voiced.
[2022-03-23 10:55] LABS: Coronavirus 19, PCR Not Detected (NotDetected); Influenza A, PCR Not Detected (NotDetected); Influenza B, PCR Not Detected (NotDetected)
--- NOTE | 2022-03-23 10:58 | PC.NURSE ---
Alva MCKEON from mechanical laboratory technician called to notify us that there are 2 patient's that will be seen before our patient in the ER. Rachelle MCKEON notified.
--- NOTE | 2022-03-23 11:13 | PC.NURSE ---
per terell ribera in laboratory assistant pt should now to second floor before laboratory assistant and they will get pt from second floor for laboratory assistant procedure. supervisor drilling and shooting notified of plan.
--- NOTE | 2022-03-23 11:17 | PC.NURSE ---
notified care management of admission, pt is going to second floor prior to laboratory asst per laboratory asst staff, spoke with hafsa
--- NOTE | 2022-03-23 11:27 | PC.NURSE ---
updated pt on POC (admission, to brick and blocker aid labor from second floor), pt verbalized understanding. States no needs at this time. Call light clipped onto bed, reminded about call light. Will continue to monitor.
--- NOTE | 2022-03-23 11:38 | PC.NURSE ---
called report to gosia kellogg rn
--- NOTE | 2022-03-23 11:50 | HMH.PHAINT1 ---
Pharmacy Intervention Comments: Home medication reconciliation completed using outpatient pharmacy list.
[2022-03-23 13:16] LABS: Troponin I < 0.01 ng/ml (0.00-0.034)
--- NOTE | 2022-03-23 14:33 | EXP.HP ---
History of Present Illness *Admission Date: 03/23/22 *Reason for visit:: Chest pain *History of present illness: Patient is a 71-year-old female with a past medical history of hypertension, type 2 diabetes, sleep apnea, and CAD status post CABG in 2019 and subsequent stenting of venous graft last year who presents to the ER from cardiology office for chest pain. Patient reports chest pain has been present for about 4 days, its central, substernal, sharp and pressure-like. Chest pain is associated with fatigue and nausea and has been getting somewhat worse over the last 4 days. Patient reported this to her PCP yesterday, who arranged an appointment with cardiology today. Based on evaluation at cardiology office this morning she was advised to come to the ER for further work-up. Review of systems is otherwise negative aside from anxiety. [facility] Medical History Abnormal cardiovascular stress test Angina pectoris Atypical angina Chest pain Daytime somnolence Diastolic dysfunction Edema Fatigue Restless sleeper Surgical History Stented coronary artery Social History Smoking Status: Current every day smoker second hand exposure: No alcohol intake: never counseling provided: none substance use type: denies use current occupational status: retired Travel in the last 8 weeks: [place] the [place] household members: spouse housing: house number of children: 4 current occupational exposures/hazards: No caffeine: Yes Review of Systems Constitutional Constitutional: Denies anorexia, Denies body ache(s), Denies chills, Reports daytime sleepiness, Reports fatigue, Denies fever(s), Reports snoring and Denies weakness Eyes Eyes: Denies blurry vision and Denies change in vision ENT Ears, Nose, Mouth, and Throat: Denies dysphagia *Cardiovascular Cardiovascular: Reports chest pain, Reports chest pain at rest, Reports dyspnea and Denies syncope *Respiratory Respiratory: Denies chest congestion, Denies cough, Reports dyspnea and Reports snoring *Gastrointestinal Gastrointestinal: Denies constipation, Denies dysphagia, Denies heartburn and Denies vomiting *Musculoskeletal Musculoskeletal: Denies limited range of motion and Denies muscle weakness *Neurologic Neurologic: Reports system reviewed and no additional complaints, except as documented, Denies confusion, Denies syncope and Denies weakness Psychiatric Psychiatric: Reports anxiety and Denies confusion Endocrine Endocrine: Reports fatigue Meds Home Medications and Allergies Home Medications Medication Instructions Recorded Confirmed Type aspirin 81 mg tablet,delayed 81 mg PO DAILY heart health 11/22/17 03/23/22 History release (Adult Low Dose Aspirin) ezetimibe 10 mg tablet 10 mg PO DAILY Cholesterol 90 days 11/22/17 03/23/22 History milnacipran 50 mg tablet 50 mg PO BID fibromyalgia 02/05/18 03/23/22 History magnesium 250 mg tablet 500 mg PO DAILY Supplement 07/23/19 03/23/22 History lansoprazole 30 mg capsule,delayed 30 mg PO DAILY acid reflux 11/06/19 03/23/22 History release escitalopram oxalate 20 mg tablet 20 mg PO DAILY anxiety/depression 06/17/20 03/23/22 History empagliflozin 10 mg tablet 10 mg PO DAILY Diabetes 03/29/21 03/23/22 History (Jardiance) insulin human U-100 NPH-regulr 30 unit SQ BID Diabetes 05/26/21 03/23/22 History 70-30 mix 100 unit/mL subcutaneous susp (Novolin 70/30 U-100 Insulin) evolocumab 140 mg/mL subcutaneous 140 mg SQ Q2W cholesterol #2 mL 08/24/21 03/23/22 Rx pen injector clopidogrel 75 mg tablet 75 mg PO DAILY Blood thinner #30 02/22/22 03/23/22 Rx tabs carvedilol 25 mg tablet 25 mg PO BID Hypertension 03/23/22 03/23/22 History furosemide 20 mg tablet 40 mg PO DAILY Edema 03/23/22 03/23/22 History ranolazine 500 mg tablet,extended 1,000 mg PO BID A
--- NOTE | 2022-03-23 14:53 | PC.NURSE ---
Spoke with Dr. Martinez he stated that he was fine with using her dexcom for ACHS sticks.
[2022-03-23 15:25] LABS: Hemoglobin A1C 6.1 % (4.0-6.0)
[2022-03-23 16:22] LABS: Troponin I < 0.01 ng/ml (0.00-0.034)
--- NOTE | 2022-03-23 17:20 | PC.NURSE ---
Called RT to request EKG.
--- NOTE | 2022-03-23 17:26 | ECG_ITS ---
APPROVED REPORT Exam: Resting ECG HR:71 bpm ECG Measurements Heart Rate 71 AXES TX 178 P 61 QRSd 89 QRS 5 QT 402 T 72 QTc 425 Conclusion SINUS RHYTHM LOW QRS VOLTAGE IN PRECORDIAL LEADS [QRS DEFLECTION < 1.0 mV IN CHEST LEADS] NONSPECIFIC T-WAVE ABNORMALITY BORDERLINE ECG UNCONFIRMED REPORT Electronically signed by : Maxx Wooten MD 03/24/2022 20:06:46
--- NOTE | 2022-03-23 17:58 | CT_ITS ---
PROCEDURE INFORMATION: Exam: CTA Chest With Contrast Exam date and time: 03/23/2022 6:43 PM Age: 71 years old Clinical indication: Other: Chest pain radiating to back; Prior surgery; Surgery type: Heart stents, open heart SX, breast SX, lymph node SX TECHNIQUE: Imaging protocol: Computed tomographic angiography of the chest with contrast. 3D rendering (Not supervised by radiologist): MIP and/or 3D reconstructed images were created by the technologist. Radiation optimization: All CT scans at this facility use at least one of these dose optimization techniques: automated exposure control; mA and/or kV adjustment per patient size (includes targeted exams where dose is matched to clinical indication); or iterative reconstruction. Contrast material: ISOVUE; Contrast volume: 50 ml; Contrast route: INTRAVENOUS (IV); COMPARISON: CT CHEST W CON 11/18/2019 1:59 PM FINDINGS: Pulmonary arteries: Limited evaluation secondary to contrast timing. No large central filling defect. Lobar and segmental branches are not well evaluated. Aorta: Moderate calcified atherosclerosis. No aortic aneurysm. No aortic dissection. Lungs: No consolidation. No masses. Pleural spaces: No pneumothorax. No pleural effusion. Heart: Coronary artery calcifications. Lymph nodes: No enlarged lymph nodes. Bones/joints: No acute fracture. Soft tissues: No significant swelling. IMPRESSION: No acute findings. Chronic and incidental findings described above.
--- NOTE | 2022-03-23 20:40 | PC.NURSE ---
spoke with Corrina PAULINO to get permission to give savella from her home medication, she stated it was ok as long as the orthostatic BPs were ok
--- NOTE | 2022-03-23 21:31 | PC.NURSE ---
Pt is A/Ox4. She was suppose to go down for a heart cath today. They were not able to fit her in so she will go down tomorrow. She ate dinner as a cardiac diet and tolerated it well. She will be NPO at midnight for heart cath tomorrow. She has complained of chest pain since admission. She stated that it was pressure in her chest that radiated to the left side. She later in the shift stated that her back started to hurt and it intensified when her chest pain did. I placed a EKG with protocol and had Dr gonzalez read the EKG. He then came and looked at pt. She stated that she never felt like she was SOB. She want down to RAD today.
[2022-03-24] VITALS (14 sets, daily range): BP systolic 117–156; BP diastolic 43–60; PULSE 68–90; RESP 16–18; TEMP 36.4–36.9; O2SAT 96–98; BMI 34.2
--- NOTE | 2022-03-24 | IR_ITS ---
APPROVED REPORT Patient Location: OutpatientInpatient Paster Supervisor: VIRGINIA Medina RT (R) PROCEDURES Left heart catheterization Left ventriculogram Selective coronary angiogram Right internal mammary angiography INDICATION Known coronary artery disease, History of coronary bypass surgery, Unstable angina Informed consent was obtained prior to the procedure. COMPLICATIONS none Estimated Blood Loss: less than 10 ml TECHNIQUE One percent lidocaine used to anesthetize the right groin. The right femoral artery was accessed via the Seldinger technique and a 5 Danish sheath was placed in the right femoral artery. A JL 4, JR4 catheter were used to perform left heart catheterization, left ventriculogram selective coronary angiography as well as right internal mammary angiography. At the end of the procedure the patient was transferred to the postop holding area in stable condition for sheath removal. ANGIOGRAPHIC RESULTS The left main artery Normal The left anterior descending artery Has proximal hazy 30% stenosis followed by a stent which is widely patent free of in-stent restenosis with excellent distal transitioning. The remaining LAD is widely patent. There is a high first diagonal artery which has an ostial 20% smooth stenosis The circumflex artery Codominant gives rise to a large terminal obtuse marginal artery which is widely patent The right coronary artery Codominant and has a stent in the ostial proximal segment which is widely patent free of in-stent restenosis with excellent antegrade distal flow The WANG ventriculogram reveals Preserved at 60% The left ventricular end-diastolic pressure 10 mmHg ZAKIA to distal right coronary artery is patent with a stent in the mid segment which is also patent. There is slow flow down this graft IMPRESSION Coronary disease as described above Preserved ejection fraction Normal left ventricular end-diastolic pressure PLAN 1. Continue medical management 2. Risk factor modification Electronically signed by : Glen Betts MD 03/24/2022 14:11:21
--- NOTE | 2022-03-24 05:15 | PC.NURSE ---
NO ACUTE EVENTS THIS SHIFT. PT HAS RESTED WELL THIS SHIFT. LUNG SOUNDS ARE CLEAR. REMAINS ON ROOM AIR. VSS. NO C/O N/V/D, SOB, OR CHEST PAIN. VSS. CALL SINHA WITHIN REACH. AMBULATING TO BATHROOM INDEPENDENTLY.
[2022-03-24 07:03] LABS: Blood Urea Nitrogen 22 mg/dl (7-17); Creatinine Clearance Estimated 53 mL/min (50-200); Estimated Glomerular Filt Rate 37 ml/min (>60); GFR (African American) 45 ML/MIN (>60)
[2022-03-24 07:04] LABS: Alanine Aminotransferase 14 U/L (12-78); Alkaline Phosphatase 95 U/L (38-126); Aspartate Amino Transferase 24 U/L (14-36); Bilirubin,Total 0.2 mg/dl (0.2-1.3); Carbon Dioxide 27 mmol/L (22.0-30.0)
[2022-03-24 07:48] LABS: Chloride 103 mmol/L (98-107)
[2022-03-24 07:49] LABS: Anion Gap 12.3 mEq/L (5-15); Potassium 4.3 mmoL/L (3.5-5.1); Sodium 138 mmol/L (136-145)
[2022-03-24 07:51] LABS: Albumin Level 3.8 g/dl (3.5-5.0); Albumin/Globulin Ratio 1.5 (1.1-1.8); Globulin 2.6 g/dL (1.3-3.2); Total Protein,Serum 6.4 g/dl (6.3-8.2)
[2022-03-24 07:52] LABS: Basophils % 0.7 % (0.1-2.0); Eosinophils # 0.1 K/mm3 (0.0-0.4); Eosinophils % 1.4 % (0.1-12.0); Hematocrit 39.3 % (37.0-47.0); Lymphocytes # 1.8 K/mm3 (0.7-4.5); Lymphocytes % 46.9 % (10-50); Mean Corpuscular HGB Conc 32.3 g/dL (31.8-35.4); Mean Corpuscular Hemoglobin 30.4 pg (27.0-31.2); Mean Corpuscular Volume 93.8 fl (81-99); Mean Platelet Volume 7.7 fl (7.4-10.4); Monocytes # 0.3 K/mm3 (0.1-1.0); Monocytes % 8.6 % (1.7-9.3); Neutrophils # 1.7 K/mm3 (1.8-7.8); Neutrophils % 42.4 % (37.0-80.0); Platelet Count 316 K/mm3 (142-424); Red Blood Count 4.19 M/mm3 (4.20-5.40); Red Cell Distribution Width 13.9 % (11.5-17.5); White Blood Count 3.9 K/mm3 (4.8-10.8)
[2022-03-24 07:52] LABS: Calcium 8.6 mg/dl (8.4-10.2); Glucose 97 mg/dl (74-100)
[2022-03-24 07:55] LABS: Hemoglobin 12.8 g/dL (12.2-16.2)
--- NOTE | 2022-03-24 09:03 | EXP.CARD.PN ---
Subjective Subjective Date: 03/24/22 Time: 08:00 Principal diagnosis: unstable angina Interval history: Patient resting, family at bedside. Awaiting [facility] today. Still has mild pressure. Labs reviewed Exam Data for Last 24 hours Vital signs and Labs for Last 24 Hours: Temp Pulse Resp BP Pulse Ox 98.0 F 77 16 156/57 H 97 03/24/22 08:00 03/24/22 08:00 03/24/22 08:00 03/24/22 08:00 03/24/22 08:00 Laboratory Results - last 24 hr 03/23/22 09:12: WBC 4.7 L, RBC 4.70, Hgb 14.3, Hct 43.9, MCV 93.2, MCH 30.3, MCHC 32.5, RDW 13.9, Plt Count 321, MPV 7.4, Neut % (Auto) 56.1, Lymph % (Auto) 34.4, Hart % (Auto) 6.5, Eos % (Auto) 0.9, Baso % (Auto) 2.0, Neut # (Auto) 2.6, Lymph # (Auto) 1.6, Hart # (Auto) 0.3, Eos # (Auto) 0.0, Baso # (Auto) 0.1 03/23/22 09:12: Sodium 137, Potassium 4.9, Chloride 97 L, Carbon Dioxide 31 H, Anion Gap 13.9, BUN 21 H, Creatinine 1.40 H, Estimated Creat Clear 53, Estimated GFR 37 L, Est GFR ( Amer) 45 L, Glucose 112 H, Calcium 9.2, Magnesium 2.3, Total Bilirubin 0.4, AST 31, ALT 17, Alkaline Phosphatase 118, Troponin I < 0.01, NT-Pro-B Natriuret Pep 240 H, Total Protein 7.5, Albumin 4.5, Globulin 3.0, Albumin/Globulin Ratio 1.5 03/23/22 09:12: Hemoglobin A1c 6.1 H 03/23/22 10:49: SARS-CoV-2 (PCR) Not detected, Influenza A Untype (PCR) Not detected, Influenza Type B (PCR) Not detected 03/23/22 12:45: Troponin I < 0.01 03/23/22 15:50: Troponin I < 0.01 03/24/22 06:23: WBC 3.9 L, RBC 4.19 L, Hgb 12.8 D, Hct 39.3, MCV 93.8, MCH 30.4, MCHC 32.3, RDW 13.9, Plt Count 316, MPV 7.7, Neut % (Auto) 42.4, Lymph % (Auto) 46.9, Hart % (Auto) 8.6, Eos % (Auto) 1.4, Baso % (Auto) 0.7, Neut # (Auto) 1.7 L, Lymph # (Auto) 1.8, Hart # (Auto) 0.3, Eos # (Auto) 0.1, Baso # (Auto) 0.0 03/24/22 06:25: Sodium 138, Potassium 4.3, Chloride 103, Carbon Dioxide 27, Anion Gap 12.3, BUN 22 H, Creatinine 1.40 H, Estimated Creat Clear 53, Estimated GFR 37 L, Est GFR ( Amer) 45 L, Glucose 97, Calcium 8.6, Total Bilirubin 0.2, AST 24, ALT 14, Alkaline Phosphatase 95, Total Protein 6.4, Albumin 3.8 D, Globulin 2.6, Albumin/Globulin Ratio 1.5 I & O for Last 24 hours: Intake & Output 03/21/22 03/22/22 03/23/22 03/24/22 23:59 23:59 23:59 23:59 Intake Total 360 / 360 1505 / 1505 Output Total 0 / 0 0 / 0 Balance 360 / 360 1505 / 1505 Weight 200 lb 200 lb 5 oz Constitutional Constitutional: no acute distress *Routine Respiratory Exam Respiratory: Present CTA bilaterally and symmetric chest movement *Routine Cardiovascular Exam Cardiovascular: Present RRR, Normal S1 and Normal S2 *Routine Abdominal Exam Abdominal: Present soft and normoactive bowel sounds; Absent tenderness *Routine Extremities Exam Extremities: Present full ROM and normal capillary refill; Absent edema *Routine Skin Exam Skin: Present intact, dry and warm Detailed Neck Exam: Thyroids Thyroid: Absent bruit Progress Note: A&P Assessment and plan (1) CAD (coronary artery disease): Status: Chronic (2) Hypertension: Status: Chronic (3) HLD (hyperlipidemia): Status: Chronic (4) JANIS (obstructive sleep apnea): Status: Chronic (5) CKD (chronic kidney disease) stage 3, GFR 30-59 ml/min: Status: Acute (6) DM type 2 (diabetes mellitus, type 2): Status: Acute (7) Angina pectoris: Status: Acute Assessment and Plan Assessment and Plan for All Diagnoses:: Angina Pectoris -Plan for [facility] today. Discussed risks vs. benefits, patient is agreeable CAD - continue aspirin 81mg QD, Plavix 75mg QD, Carvedilol 12.5mg BID, statin intolerant HTN -continue coreg 12.5mg BID, Verapamil ER 120mg QD, and Lasix 40mg QD HLD- goal < 55. continue zetia and repatha DM- Continue jardiance. consider addition of ozempic given hx of CAD.
--- NOTE | 2022-03-24 17:23 | EXP.DC.SUM ---
General Admission date:: 03/23/22 Discharge date: 03/24/22 HPI HPI HPI: Patient is a 71-year-old female with a past medical history of hypertension, type 2 diabetes, sleep apnea, and CAD status post CABG in 2019 and subsequent stenting of venous graft last year who presents to the ER from cardiology office for chest pain. Patient reports chest pain has been present for about 4 days, its central, substernal, sharp and pressure-like. Chest pain is associated with fatigue and nausea and has been getting somewhat worse over the last 4 days. Patient reported this to her PCP yesterday, who arranged an appointment with cardiology today. Based on evaluation at cardiology office this morning she was advised to come to the ER for further work-up. Review of systems is otherwise negative aside from anxiety. Hospital Course Hospital Course Hospital Course: Patient admitted yesterday for chest pain concerning for unstable angina given her history of CABG with subsequent stenting. Patient underwent left heart cath today through right femoral artery. No additional stenting was needed, patient did well postoperatively with no residual bleeding or signs of hematoma. Patient will be discharged home and follow-up with PCP and cardiology. Exam Data for Last 24 hours Vital signs and Labs for Last 24 Hours: Temp Pulse Resp BP Pulse Ox 98.4 F 68 18 120/54 L 97 03/24/22 11:48 03/24/22 17:00 03/24/22 17:00 03/24/22 17:00 03/24/22 17:00 Laboratory Results - last 24 hr 03/24/22 06:23: WBC 3.9 L, RBC 4.19 L, Hgb 12.8 D, Hct 39.3, MCV 93.8, MCH 30.4, MCHC 32.3, RDW 13.9, Plt Count 316, MPV 7.7, Neut % (Auto) 42.4, Lymph % (Auto) 46.9, Sabine % (Auto) 8.6, Eos % (Auto) 1.4, Baso % (Auto) 0.7, Neut # (Auto) 1.7 L, Lymph # (Auto) 1.8, Sabine # (Auto) 0.3, Eos # (Auto) 0.1, Baso # (Auto) 0.0 03/24/22 06:25: Sodium 138, Potassium 4.3, Chloride 103, Carbon Dioxide 27, Anion Gap 12.3, BUN 22 H, Creatinine 1.40 H, Estimated Creat Clear 53, Estimated GFR 37 L, Est GFR ( Amer) 45 L, Glucose 97, Calcium 8.6, Total Bilirubin 0.2, AST 24, ALT 14, Alkaline Phosphatase 95, Total Protein 6.4, Albumin 3.8 D, Globulin 2.6, Albumin/Globulin Ratio 1.5 I & O for Last 24 hours: Intake & Output 03/21/22 03/22/22 03/23/22 03/24/22 23:59 23:59 23:59 23:59 Intake Total 360 / 360 1505 / 1505 Output Total 0 / 0 0 / 0 Balance 360 / 360 1505 / 1505 Weight 90.718 kg 90.86 kg Constitutional Constitutional: no acute distress and cooperative *Routine HEENT Exam Head: Present normocephalic and atraumatic Eye: Present EOMI and PERRL ENT: Present mucous membranes moist and oropharynx clear *Routine Neck Exam Neck: Present supple and full ROM *Routine Respiratory Exam Respiratory: Present CTA bilaterally; Absent accessory muscle use or respiratory distress *Routine Cardiovascular Exam Cardiovascular: Present RRR, Normal S1, Normal S2 and murmur *Routine Abdominal Exam Abdominal: Present soft and normoactive bowel sounds; Absent tenderness, distended, rebound or guarding *Routine Extremities Exam Extremities: Present full ROM, pulses intact and normal capillary refill; Absent edema or tenderness *Routine Neurological Exam Neurological: Present alert, oriented X3, CN II-XII intact, moving all extremities, normal tone and normal speech; Absent sensory deficit or motor deficit Routine Psychiatric Exam Psychiatric: Present normal affect, normal thought process, cooperative, good insight and good judgment Results Data Completed and Pending Labs on day of discharge: Labs from last 24 hours 03/24/22 03/24/22 06:25 06:23 WBC 3.9 L RBC 4.19 L Hgb 12.8 D Hct 39.3 MCV 93.8 MCH 30.4 MCHC 32.3 RDW 13.9 Plt Count 316 MPV 7.7 Neut % (Auto) 42.4 Lymph % (Auto) 46.9 Sabine % (Auto) 8.6 Eos % (Auto) 1.4 Baso % (Auto) 0.7 Neut # (Auto) 1.7 L Lymph # (Auto) 1.8 Sabine # (Auto) 0.3 Eos # (Auto) 0.1 Baso # (Auto) 0.0 S
--- NOTE | 2022-03-25 13:16 | CARE MANAGER ---
Contacted patient who states she is doing well. She denies any questions or concerns and is aware of follow up appointments. LINDA Booth
== END 2022-03-24 18:39 | disposition home or self-care (01) ==
LOC: ER 09:49 → 2ND 11:30
PROVIDERS: Internal Medicine; Admitting Provider Emergency Medicine; Emergency Provider Emergency Medicine; PCP Nurse Practitioner Family; Visit Provider Emergency Medicine
DX: I25.110 Atherosclerotic heart disease of native coronary artery with unstable angina pectoris (principal); N18.9 Chronic kidney disease, unspecified; E78.5 Hyperlipidemia, unspecified; I12.9 Hypertensive chronic kidney disease with stage 1 through stage 4 chronic kidney disease, or unspecified chronic kidney disease; G47.33 Obstructive sleep apnea (adult) (pediatric); N18.30 Chronic kidney disease, stage 3 unspecified; E11.22 Type 2 diabetes mellitus with diabetic chronic kidney disease; Z95.1 Presence of aortocoronary bypass graft; Z79.4 Long term (current) use of insulin; Z79.899 Other long term (current) drug therapy; F17.210 Nicotine dependence, cigarettes, uncomplicated
CPT/HCPCS: G0378; 36415; 71045; 71275; 80053; 83036; 83735; 83880; 84484; 85025; 93005; 93459; 99152; C1725; C1769; C1894; C9803; J1644; Q9967; U0003; U0005

== ENCOUNTER 2022-03-28 15:33 | Emergency (ER) | payer MEDICARE, SELFPAY ==
--- NOTE | 2022-03-28 15:31 | ECG_ITS ---
APPROVED REPORT Exam: Resting ECG HR:79 bpm ECG Measurements Heart Rate 79 AXES FL 185 P 75 QRSd 78 QRS 18 QT 365 T 76 QTc 399 Conclusion SINUS RHYTHM LOW QRS VOLTAGE IN PRECORDIAL LEADS [QRS DEFLECTION < 1.0 mV IN CHEST LEADS] ANTEROSEPTAL MYOCARDIAL INFARCTION , OF INDETERMINATE AGE [40+ ms Q WAVE IN V1-V4] ST ELEVATION, CONSIDER INFERIOR INJURY [MARKED ST ELEVATION W/O NORMALLY INFLECTED T-WAVE IN II/aVF] ACUTE ND UNCONFIRMED REPORT Electronically signed by : Maxx Wooten MD 03/28/2022 21:21:41
[2022-03-28 15:33] VITALS: BP 144/72; PULSE 78; RESP 18; TEMP 36.9; O2SAT 98; BMI 33.5
--- NOTE | 2022-03-28 15:36 | XR_ITS ---
FINAL REPORT TECHNIQUE: Single view chest CLINICAL HISTORY: CHEST PAIN FINDINGS: A single view of the chest was obtained. Patient is status post median sternotomy. The heart and mediastinum are within normal limits. There is mild right base scarring or atelectasis. There is no pneumothorax. Osseous structures are unremarkable. IMPRESSION: Mild right base scarring or atelectasis. Reviewed, Interpreted and Dictated by Timothy Zapata III, MD Transcribed by Rosa Edwards Authenticated and [facility]
--- NOTE | 2022-03-28 15:43 | HMH.EDGENADL ---
Discharge Plan Disposition Patient Disposition: Home, Self-Care Prescriptions Prescriptions: No Action aspirin [Adult Low Dose Aspirin] 81 mg tablet,delayed release (DR/EC) 81 mg PO DAILY ezetimibe 10 mg tablet 10 mg PO DAILY 90 Days magnesium 250 mg tablet 500 mg PO DAILY lansoprazole 30 mg capsule,delayed release(DR/EC) 30 mg PO DAILY azithromycin 250 mg tablet 250 mg PO DAILY Rx Instructions: start on day 2 of therapy fluticasone propionate 50 mcg/actuation spray,suspension 1 spray intranasal DAILY Novolin 70/30 U-100 Insulin 100 unit/mL (70-30) suspension 30 unit SQ BID Rx Instructions: 48 in AM 38 in PM Jardiance 10 mg tablet 10 mg PO DAILY evolocumab 140 mg/mL pen injector 140 mg SQ Q2W Qty: 2 12RF clopidogrel 75 mg tablet 75 mg PO DAILY Qty: 30 5RF escitalopram oxalate 20 MG tablet 20 mg PO DAILY milnacipran 50 MG tablet 50 mg PO BID MDD pain furosemide 20 mg tablet 40 mg PO DAILY Rx Instructions: TAKE 2 TABLETS BY MOUTH ONCE DAILY FOR EDEMA verapamil 120 mg capsule,ext rel. pellets 24 hr 120 mg PO DAILY ranolazine 500 mg tablet extended release 12 hr 1,000 mg PO BID carvedilol 25 mg tablet 12.5 mg PO BID Referrals Follow up/Referrals: Nola Fay APRN [Primary Care Provider] - See instructions Clinical Impressions Clinical Impression: Chest pain Instructions Patient Instructions: DI for Chest Pain Discharge ED Provider: Amari Biswas General Adult HPI General Chief complaint: Chest Pain Stated complaint: CHEST PAIN Time Seen by Provider: 03/28/22 15:40 Mode of Arrival: Ambulatory Limitations: No Limitations Description of Symptoms (Recalled from ER Triage Doc. by RN): PT C/O CP IN THE MIDDLE OF HER CHEST THAT RADIATES TO HER LEFT ARM WITH DIZZINESS. PT HAD HEART CATH LAST WEEK AND DID NOT RECIEVE ANY STENTS. STATES THIS PAIN IS THE SAME WHAT SHE HAS HAD LAST WEEK. History of Present Illness HPI narrative: Patient is a 71-year-old female with a past medical history of CAD, hyperlipidemia, hypertension, coronary artery bypass, diabetes who presents with chest pain. Patient states that she was in the office earlier today and was sent over because she was complaining of left arm pain. She did have a cath last that showed that she had approximately 30% blockage. She says that she is continued to have anginal chest pain with left arm pain. She says it has been constant the whole time and has not had any changes over the weekend. No stents. She does state that her pain is little bit worse with deep inspiration. She denies any fever or chills. Denies any shortness of breath. No sputum production. She also says that she feels little bit dizzy every once in a while. Denies any nausea or diaphoresis. Related Data Home Medications Medication Instructions Recorded Confirmed aspirin 81 mg tablet,delayed 81 mg PO DAILY heart health 11/22/17 03/28/22 release (Adult Low Dose Aspirin) ezetimibe 10 mg tablet 10 mg PO DAILY Cholesterol 90 days 11/22/17 03/28/22 milnacipran 50 mg tablet 50 mg PO BID fibromyalgia 02/05/18 03/28/22 magnesium 250 mg tablet 500 mg PO DAILY Supplement 07/23/19 03/28/22 lansoprazole 30 mg capsule,delayed 30 mg PO DAILY acid reflux 11/06/19 03/28/22 release escitalopram oxalate 20 mg tablet 20 mg PO DAILY anxiety/depression 06/17/20 03/28/22 empagliflozin 10 mg tablet 10 mg PO DAILY Diabetes 03/29/21 03/28/22 (Jardiance) insulin human U-100 NPH-regulr 30 unit SQ BID Diabetes 05/26/21 03/28/22 70-30 mix 100 unit/mL subcutaneous susp (Novolin 70/30 U-100 Insulin) furosemide 20 mg tablet 40 mg PO DAILY Edema 03/23/22 03/28/22 ranolazine 500 mg tablet,extended 1,000 mg PO BID Angina 03/23/22 03/28/22 release,12 hr verapamil 120 mg 24 hr 120 mg PO DAILY Angina 03/23/22 03/28/22 capsule,extended release azithromycin 2
[2022-03-28 16:07] LABS: Basophils # 0.1 K/mm3 (0-0.2); Basophils % 1.7 % (0.1-2.0); Eosinophils # 0.1 K/mm3 (0.0-0.4); Hematocrit 42.8 % (37.0-47.0); Hemoglobin 14.3 g/dL (12.2-16.2); Lymphocytes # 2.4 K/mm3 (0.7-4.5); Lymphocytes % 45.8 % (10-50); Mean Corpuscular HGB Conc 33.4 g/dL (31.8-35.4); Mean Corpuscular Hemoglobin 30.9 pg (27.0-31.2); Mean Corpuscular Volume 92.7 fl (81-99); Mean Platelet Volume 7.9 fl (7.4-10.4); Monocytes # 0.4 K/mm3 (0.1-1.0); Monocytes % 8.1 % (1.7-9.3); Neutrophils # 2.3 K/mm3 (1.8-7.8); Neutrophils % 43.3 % (37.0-80.0); Platelet Count 345 K/mm3 (142-424); Red Blood Count 4.62 M/mm3 (4.20-5.40); Red Cell Distribution Width 14.1 % (11.5-17.5); White Blood Count 5.3 K/mm3 (4.8-10.8)
[2022-03-28 16:20] VITALS: BP 128/69; PULSE 75; RESP 16; O2SAT 97
--- NOTE | 2022-03-28 16:20 | PC.NURSE ---
rounded on pt at this time, pt states no needs at this time, call light within reach, at BS.
[2022-03-28 16:22] LABS: Anion Gap 18.7 mEq/L (5-15); Blood Urea Nitrogen 20 mg/dl (7-17); Calcium 9.2 mg/dl (8.4-10.2); Carbon Dioxide 28 mmol/L (22.0-30.0); Chloride 93 mmol/L (98-107); Creatinine Clearance Estimated 51 mL/min (50-200); Estimated Glomerular Filt Rate 37 ml/min (>60); GFR (African American) 45 ML/MIN (>60); Glucose 80 mg/dl (74-100); Potassium 4.7 mmoL/L (3.5-5.1); Sodium 135 mmol/L (136-145)
[2022-03-28 16:46] LABS: Troponin I < 0.01 ng/ml (0.00-0.034)
[2022-03-28 19:00] VITALS: BP 130/68; PULSE 70; O2SAT 98
[2022-03-28 19:35] LABS: Troponin I < 0.01 ng/ml (0.00-0.034)
[2022-03-28 19:41] VITALS: BP 127/72; PULSE 70; RESP 18; TEMP 36.4; O2SAT 98
== END 2022-03-28 19:45 | disposition home or self-care (01) ==
PROVIDERS: Emergency Provider Student in an Organized Health Care Education/Training Program; PCP Nurse Practitioner Family
DX: R07.9 Chest pain, unspecified (principal); Z79.82 Long term (current) use of aspirin; Z79.899 Other long term (current) drug therapy; Z79.4 Long term (current) use of insulin; I51.89 Other ill-defined heart diseases; E11.9 Type 2 diabetes mellitus without complications; N18.9 Chronic kidney disease, unspecified; E78.5 Hyperlipidemia, unspecified; I10 Essential (primary) hypertension; I25.10 Atherosclerotic heart disease of native coronary artery without angina pectoris; G47.33 Obstructive sleep apnea (adult) (pediatric); Z95.1 Presence of aortocoronary bypass graft
CPT/HCPCS: 36415; 71045; 80048; 84484; 85025; 93005; 99283

== ENCOUNTER → 2022-06-29 12:56 | Outpatient (CLI) | payer MEDICARE, SELFPAY ==
[2022-06-29 14:09] LABS: Blood Urea Nitrogen 16 mg/dl (7-17); Estimated Glomerular Filt Rate 37 ml/min (>60); GFR (African American) 45 ML/MIN (>60)
== END ==
PROVIDERS: PCP Nurse Practitioner Family; Visit Provider Nurse Practitioner Family
DX: Z01.812 Encounter for preprocedural laboratory examination (principal)
CPT/HCPCS: 36415; 82565; 84520

== ENCOUNTER → 2022-06-30 07:49 | Outpatient (CLI) | payer MEDICARE, SELFPAY ==
--- NOTE | 2022-06-30 07:57 | CT_ITS ---
FINAL REPORT TECHNIQUE: Thin section axial images were obtained through the abdomen after intravenous contrast. Reconstruction images were obtained from the axial data. Exam was performed using dose reduction techniques. CLINICAL HISTORY: NAUSEA, DIARRHEA, WEIGHT LOSS, BILATERAL LOWER ABD PAIN FINDINGS: The lung bases are clear. The liver is homogeneous. There are small stones in the gallbladder. The spleen, adrenal glands, and pancreas are unremarkable. There is no hydronephrosis. There are bilateral renal cysts. Abdominal GI tract is without acute abnormality. There is no abdominal lymphadenopathy or ascites. There is pelvic floor descent present. A rectocele is not excluded. The pelvic solid organs are unremarkable. The pelvic portions of the GI tract, including the appendix, are without acute abnormality. There is a moderate to large amount of stool.. There is no pelvic lymphadenopathy or ascites. No acute osseous abnormalities identified. IMPRESSION: 1. No acute intra-abdominal or intrapelvic process. 2. Constipation. 3. Gallstones. Reviewed, Interpreted and Dictated by Lina Norton MD Transcribed by Elma Hayes Authenticated and [facility]
== END ==
PROVIDERS: PCP Nurse Practitioner Family; Visit Provider Nurse Practitioner Family
DX: R10.30 Lower abdominal pain, unspecified (principal); R11.0 Nausea; R63.4 Abnormal weight loss
CPT/HCPCS: 74177; Q9967

== ENCOUNTER → 2022-07-08 08:25 | Outpatient (CLI) | payer MEDICARE, SELFPAY ==
--- NOTE | 2022-07-08 08:25 | US_ITS ---
FINAL REPORT CLINICAL HISTORY: Pain, gallstones on recent CT FINDINGS: ULTRASOUND RIGHT UPPER QUADRANT Sonographic imaging of the right upper quadrant was obtained. The pancreas is partially obscured. The liver is unremarkable. There are probable tiny gallstones causing mild shadowing within the gallbladder. There is no gallbladder wall thickening or abnormal distension. There is no biliary ductal dilatation. The common duct is normal at 4 mm. The right kidney measure 9.6 cm in length. There is a right renal cyst. IMPRESSION: Cholelithiasis without evidence of biliary obstruction. Reviewed, Interpreted and Dictated by Scott Wong MD Transcribed by Brina Croft Authenticated and [facility]
== END ==
PROVIDERS: PCP Nurse Practitioner Family; Visit Provider Surgery
DX: R10.11 Right upper quadrant pain (principal)
CPT/HCPCS: 76705

== ENCOUNTER 2022-07-22 08:36 | Day surgery (SDC) | payer MEDICARE, SELFPAY ==
[2022-07-22] VITALS (13 sets, daily range): BP systolic 128–167; BP diastolic 59–77; PULSE 66–78; RESP 12–73; O2SAT 98–100; BMI 34.0
--- NOTE | 2022-07-22 07:29 | IR_ITS ---
APPROVED REPORT Patient Location: Outpatient Lecturer In Marketing: [place] May[place] RT (R) PROCEDURES Left heart catheterization Left ventriculogram Selective coronary angiogram Selective engagement of the right internal mammary artery to the right coronary Intravascular ultrasound of the LAD Drug-eluting stent deployment to the proximal LAD Bilateral selective renal angiography INDICATION Coronary artery disease, History of coronary bypass surgery, History of stent within the mid LAD, Angiographic ambiguity involving the LAD. Determine the etiology for in-stent restenosis within the LAD, MLA of 3.0 mm??? in the proximal LAD, Renovascular hypertension, Creatinine 1.6, Suspected renal artery stenosis, Informed consent was obtained prior to the procedure. COMPLICATIONS None Estimated Blood Loss: Less than 10 mls TECHNIQUE 1% lidocaine used anesthetize the right groin the right femoral artery was accessed via Salinger technique and a 4 Malian sheath was placed in the right femoral artery a JL 4 JR 4 catheter used to perform left heart catheterization left ventriculogram and selective coronary angiography. A 6 Malian CALDERÓN guide catheter was used to perform selective engagement of the right internal mammary artery. A guide liner catheter along with a Choice PT extra-support wire was placed into the right internal mammary artery in order to provide better selective angiography at the end of the diagnostic procedure therapeutic heparin was administered giving a therapeutic ACT and a JR4 guide catheter was placed in the left main artery followed by Choice PT extra-support wire being placed on the LAD. Intravascular ultrasound probe was advanced into the LAD which demonstrated a severe stenotic lesion in the proximal LAD with an MLA of 3.0 mm???. It also demonstrated the stent was slightly undersized in the mid LAD. Because of this a 3 mm x 22 mm resolute Moshe stent was deployed at 22 and then 24 isaac in the proximal to mid LAD which reduce the critical stenosis to 0%. The CALDERÓN guide catheter was used to perform bilateral selective renal angiography [id number] flow was present before and after the procedure. At the end of the procedure the apparatus was removed the groin is reprepped gloves were changed sheath was removed and hemostasis was achieved using Perclose device patient was transferred to the postop putting in stable condition ANGIOGRAPHIC RESULTS The left main artery Normal The left anterior descending artery Has a proximal 50 to 60% stenosis by angiography with haziness in the stent with some degree of in-stent restenosis in the LAD stent. The distal portion of the stent is widely patent and has excellent distal transitioning. There is a large first diagonal artery which is widely patent The circumflex artery Is a codominant vessel and widely patent The right coronary artery Is a codominant vessel and has a stent in the ostial proximal segment which is widely patent with minimal in-stent restenosis with excellent antegrade flow distally The WANG ventriculogram reveals Normal 65% The left ventricular end-diastolic pressure 20 mmHg Right subclavian artery widely patent Right internal mammary artery has a stent in the mid segment which has a 40% stenosis proximal to the stent with minimal in-stent restenosis within the stent and then supplies antegrade flow into the posterior descending artery Bilateral renal arteries are singular normal IMPRESSION Severe stenosis in the proximal LAD with an MLA of 3.0 mm??? Successful stenting of the proximal to mid LAD severe disease reduced to 0% with 1 drug-eluting stent Normal ejection fraction Mildly elevated LVEDP Normal renal arteries PLAN
[2022-07-22 09:49] LABS: Basophils # 0.1 K/mm3 (0-0.2); Basophils % 1.1 % (0.1-2.0); Eosinophils % 0.7 % (0.1-12.0); Hematocrit 44.5 % (37.0-47.0); Hemoglobin 14.4 g/dL (12.2-16.2); Lymphocytes # 1.8 K/mm3 (0.7-4.5); Lymphocytes % 36.6 % (10-50); Mean Corpuscular HGB Conc 32.3 g/dL (31.8-35.4); Mean Corpuscular Hemoglobin 30.3 pg (27.0-31.2); Mean Corpuscular Volume 93.8 fl (81-99); Mean Platelet Volume 7.9 fl (7.4-10.4); Monocytes # 0.3 K/mm3 (0.1-1.0); Monocytes % 5.7 % (1.7-9.3); Neutrophils # 2.8 K/mm3 (1.8-7.8); Neutrophils % 55.9 % (37.0-80.0); Platelet Count 307 K/mm3 (142-424); Red Blood Count 4.75 M/mm3 (4.20-5.40); Red Cell Distribution Width 13.5 % (11.5-17.5)
[2022-07-22 09:57] LABS: Anion Gap 12.8 mEq/L (5-15); Blood Urea Nitrogen 22 mg/dl (7-17); Calcium 9.3 mg/dl (8.4-10.2); Carbon Dioxide 28 mmol/L (22.0-30.0); Chloride 101 mmol/L (98-107); Creatinine Clearance Estimated 46 mL/min (50-200); Estimated Glomerular Filt Rate 32 ml/min (>60); GFR (African American) 38 ML/MIN (>60); Glucose 158 mg/dl (74-100); Potassium 4.8 mmoL/L (3.5-5.1); Sodium 137 mmol/L (136-145)
[2022-07-22 11:27] LABS: CATHL Activated Clotting Time 350 SEC (74-125)
--- NOTE | 2022-07-22 15:30 | HMH.PHACL ---
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
== END 2022-07-22 16:01 | disposition home or self-care (01) ==
PROVIDERS: PCP Nurse Practitioner Family; Visit Provider Internal Medicine
DX: I15.0 Renovascular hypertension (principal); I25.118 Atherosclerotic heart disease of native coronary artery with other forms of angina pectoris; T82.855A Stenosis of coronary artery stent, initial encounter; Z95.1 Presence of aortocoronary bypass graft; I25.709 Atherosclerosis of coronary artery bypass graft(s), unspecified, with unspecified angina pectoris; I70.1 Atherosclerosis of renal artery; R07.9 Chest pain, unspecified; E11.22 Type 2 diabetes mellitus with diabetic chronic kidney disease; N18.30 Chronic kidney disease, stage 3 unspecified; I11.0 Hypertensive heart disease with heart failure; E78.5 Hyperlipidemia, unspecified; Z79.899 Other long term (current) drug therapy; I50.9 Heart failure, unspecified
CPT/HCPCS: 36252; 80048; 85025; 85347; 92928; 92978; 93459; 93978; 99152; 99153; C1725; C1760; C1769; C1876; C9600; J1644; Q9967

== ENCOUNTER → 2022-07-27 10:23 | Outpatient (CLI) | payer MEDICARE, SELFPAY ==
[2022-07-27 11:23] LABS: Basophils # 0.1 K/mm3 (0-0.2); Basophils % 1.1 % (0.1-2.0); Eosinophils % 0.8 % (0.1-12.0); Hematocrit 39.4 % (37.0-47.0); Hemoglobin 12.8 g/dL (12.2-16.2); Lymphocytes # 1.6 K/mm3 (0.7-4.5); Lymphocytes % 33.3 % (10-50); Mean Corpuscular HGB Conc 32.5 g/dL (31.8-35.4); Mean Corpuscular Hemoglobin 30.3 pg (27.0-31.2); Mean Platelet Volume 7.6 fl (7.4-10.4); Monocytes # 0.3 K/mm3 (0.1-1.0); Neutrophils # 2.7 K/mm3 (1.8-7.8); Neutrophils % 57.8 % (37.0-80.0); Platelet Count 271 K/mm3 (142-424); Red Blood Count 4.23 M/mm3 (4.20-5.40); Red Cell Distribution Width 13.6 % (11.5-17.5); White Blood Count 4.7 K/mm3 (4.8-10.8)
[2022-07-27 11:31] LABS: Albumin Level 4.1 g/dl (3.5-5.0); Chloride 100 mmol/L (98-107); Sodium 131 mmol/L (136-145)
[2022-07-27 11:33] LABS: Blood Urea Nitrogen 26 mg/dl (7-17); Estimated Glomerular Filt Rate 40 ml/min (>60); GFR (African American) 49 ML/MIN (>60)
[2022-07-27 11:34] LABS: Calcium 8.5 mg/dl (8.4-10.2); Carbon Dioxide 21 mmol/L (22.0-30.0); Glucose 190 mg/dl (74-100); Phosphorous 4.1 mg/dl (2.5-4.5)
[2022-07-27 11:35] LABS: Creatinine,Urine Random 11 mg/dL (Not Estab.); Microalbumin < 6.000 mg/L (0-16.7)
== END ==
PROVIDERS: PCP Internal Medicine; Visit Provider Internal Medicine Nephrology
DX: E21.3 Hyperparathyroidism, unspecified (principal); N18.32 Chronic kidney disease, stage 3b; I10 Essential (primary) hypertension; R80.9 Proteinuria, unspecified
CPT/HCPCS: 36415; 80048; 80069; 82043; 82570; 85025

== ENCOUNTER → 2022-07-28 15:14 | Outpatient (CLI) | payer MEDICARE, SELFPAY ==
--- NOTE | 2022-07-28 15:17 | CA_ITS ---
FINAL REPORT CLINICAL HISTORY: knot in right groin post cath 07/22/22. Patient states she had a syncopal episode with fall 07/24/22. She noticed a knot in the right groin 07/27/22. CAD, DM, HTN, HLD. FINDINGS: Spectral and Doppler waveform evaluations of the right groin was performed. Spectral analysis was performed. The vasculature is patent. There is no evidence of pseudoaneurysm. IMPRESSION: There is no evidence of pseudoaneurysm. Reviewed, Interpreted and Dictated by Lina Norton MD Transcribed by Nurys Brown Authenticated and . [facility]
--- NOTE | 2022-07-28 15:40 | CT_ITS ---
FINAL REPORT TECHNIQUE: Thin section axial images were obtained from skull base to vertex without contrast. Coronal reconstruction images were obtained from the axial data. Exam was performed using dose reduction technique. CLINICAL HISTORY: fall, syncope COMPARISON: 03/01/2022 FINDINGS: There is no mass effect or midline shift. There is no hydrocephalus. There is no intracranial hemorrhage. The posterior fossa is without acute abnormality. The basilar cisterns are preserved. Mild periventricular hypodensity is unchanged. There is a new left frontal scalp soft tissue edema. The previously seen occipital cephalohematoma has resolved. No acute osseous abnormality is identified. IMPRESSION: 1. No acute intracranial abnormality. 2. New left frontal scalp soft tissue edema. Reviewed, Interpreted and Dictated by Lina Norton MD Transcribed by Brina Croft Authenticated and [facility]
== END ==
PROVIDERS: PCP Nurse Practitioner Family; Visit Provider Physician Assistant
DX: E11.69 Type 2 diabetes mellitus with other specified complication (principal); E78.2 Mixed hyperlipidemia; G47.33 Obstructive sleep apnea (adult) (pediatric); I10 Essential (primary) hypertension; I25.118 Atherosclerotic heart disease of native coronary artery with other forms of angina pectoris; N18.30 Chronic kidney disease, stage 3 unspecified; R06.09 Other forms of dyspnea; R42 Dizziness and giddiness; R55 Syncope and collapse; W19.XXXA Unspecified fall, initial encounter; Z95.1 Presence of aortocoronary bypass graft; I77.0 Arteriovenous fistula, acquired; Z79.4 Long term (current) use of insulin
CPT/HCPCS: 70450; 93926

== ENCOUNTER → 2022-07-29 13:12 | Outpatient (CLI) | payer MEDICARE, SELFPAY | PROVIDERS: PCP Nurse Practitioner Family; Visit Provider Internal Medicine | DX: R06.09 Other forms of dyspnea (principal); R55 Syncope and collapse | CPT/HCPCS: 93225 ==

== ENCOUNTER → 2022-08-01 10:54 | Outpatient (CLI) | payer MEDICARE, SELFPAY ==
--- NOTE | 2022-08-01 | CA_ITS ---
FINAL REPORT TECHNIQUE: Color Doppler, duplex Doppler and compression sonography of the left lower extremity deep venous systems was performed. CLINICAL HISTORY: Patient had heart cath 07/22/22 with right groin access. Monday07/24/22 patient had a syncopal episode and fell with trauma to face and left leg. Wednesday 07/26 patient developed multiple knots to the lateral upper thigh of left leg with bruising. She takes Plavix and 81 mg ASA daily. History of CABG with left GSV harvesting. FINDINGS: There is no evidence of deep venous thrombosis from the level of the groin to the calf. The veins are patent and compressible. There is superficial venous thrombosis in the left lateral thigh. IMPRESSION: No evidence of deep venous thrombosis left lower extremity. Reviewed, Interpreted and Dictated by Timothy Zapata III, MD Transcribed by Nurys Brown Authenticated and [facility]
--- NOTE | 2022-08-01 11:37 | XR_ITS ---
FINAL REPORT CLINICAL HISTORY: SWELLING OF L LOWER EXT FINDINGS: Left femur Two views were obtained. There is no acute fracture or dislocation. There are mild degenerative changes. No soft tissue abnormality is identified. IMPRESSION: No acute process. Reviewed, Interpreted and Dictated by Timothy Zapata III, MD Transcribed by Nurys Brown Authenticated and [facility]
== END ==
PROVIDERS: PCP Nurse Practitioner Family; Visit Provider Nurse Practitioner Family
DX: M79.605 Pain in left leg (principal); M79.89 Other specified soft tissue disorders
CPT/HCPCS: 73552; 93971

== ENCOUNTER → 2022-08-01 12:35 | Outpatient (POV) | payer MEDICARE, SELFPAY | PROVIDERS: Visit Provider Internal Medicine Nephrology | DX: Z00.00 Encounter for general adult medical examination without abnormal findings (principal) ==

== ENCOUNTER → 2022-08-03 14:22 | Outpatient (CLI) | payer MEDICARE, SELFPAY ==
--- NOTE | 2022-08-03 14:23 | CA_ITS ---
FINAL REPORT TECHNIQUE: Color Doppler, duplex Doppler and song scale sonography of the bilateral neck arterial vasculature was performed. Velocities were measured in the carotid arteries. Stenosis evaluation based on the validated velocity criteria. CLINICAL HISTORY: syncope, dizziness FINDINGS: The peak systolic velocity of the right common carotid artery is 59 cm/s. The peak systolic velocity of the right internal carotid artery is 128 cm/s and end diastolic velocity 22 cm/s. The ICA/CCA ratio is 2.1. A mild amount of plaque is present. The right external carotid artery is patent. The right vertebral artery is patent with antegrade flow. The peak systolic velocity of the left common carotid artery is 80 cm/s. The peak systolic velocity of the left internal carotid artery is 116 cm/s and end diastolic velocity 27 cm/s. The ICA/CCA ratio is 1.5. A mild amount of plaque is present. The left external carotid artery is patent.The left vertebral artery is patent with antegrade flow. IMPRESSION: Less than 50% bilateral carotid stenoses. Bilateral patent vertebral arteries with antegrade flow. If indicated, CTA or MRA could further evaluate. Reviewed, Interpreted and Dictated by Timothy Zapata III, MD Transcribed by Brina Croft Authenticated and [facility]
--- NOTE | 2022-08-03 14:23 | CA_ITS ---
APPROVED REPORT EXAM: Comprehensive 2D, Doppler, and color-flow Echocardiogram Automotive Specialty Technician: Marlene Martinez CRT Ht: 5 ft 4 in Wt: 199lbs BSA: 1.95 BP: 150/70 mmHg Indications: Murmur, Shortness of Breath, Hyperlipidemia, Hypertension/HDD 2D Dimensions LVOT 1.86 cm (M/F) 1.5-2.5 LA Volume 40.20 mL LA Volume Index 20.10 mL/m2 (M/F) 16-34 M-Mode Dimensions RVDd 2.22 cm (0.9-2.6) LA Diam 3.80 cm (1.9-4.0) LVDd 4.28 cm (3.5-5.7) Ao Diam 3.46 cm (2.0-3.7) LVDs 2.87 cm (3.5-5.7) IVSd 1.31 cm (0.6-1.1) PWd 0.50 cm (0.6-1.1) EF (Teich) 61.80% FS 32.90% EDV (Teich) 82.20 mL TAPSE 1.64 (<1.7) ESV (Teich) 31.40 mL LV Diastology E Decel Time 217.00 (160-240 msec) E/A Ratio 0.54 MED E' 5.70 (< 7 cm/sec) MED A' 13.10 cm/s E'/MED E' Ratio 8.86 (>14) LAT E' 5.90 (<10 cm/sec) LAT A' 9.70 cm/s E/LAT E' Ratio 8.56 (>14) Aortic Valve AI PHT 607.00 ms AO Peak GR. 9.30 mmHg Mitral Valve MV A Velocity 94.00 (40-130 cm/s) E/A Ratio 0.54 MV Decel. Time 217.00 (160-240 ms) Pulmonary Valve PV Peak Velocity 96.00 (50-150 cm/s) Tricuspid Valve TR P. Velocity 132.00 cm/s RAP Estimate 10.00 mmHg RVSP 17.00 mmHg Left Ventricle Left atrium is mildly enlarged, left ventricle is normal size mild concentric left ventricular hypertrophy, estimated ejection fraction 55% with no regional wall motion abnormality, grade 1 diastolic dysfunction seen without tissue Doppler evidence of raise left atrial pressure. Right Ventricle Right atrium and right ventricular normal size and contractility. Aortic Valve Aortic valve is minimally thickened and calcified without aortic stenosis, there is trace aortic insufficiency. Mitral Valve Mitral valve is grossly normal, there is trace mitral regurgitation. Tricuspid Valve Tricuspid valve grossly normal, there is trace tricuspid regurgitation, tricuspid regurgitation jet velocity is inadequate for calculation of the right ventricular systolic pressure. Pulmonic Valve Pulmonic valve is poorly visualized. Great Vessels Aortic root is normal size. Inferior vena cava is poorly visualized. Pericardium No significant pericardial effusion noted. Conclusion 1. Mildly enlarged left atrium, normal left ventricular size, mild concentric left ventricular hypertrophy, estimated ejection fraction of 55% with no regional wall motion abnormality, grade 1 diastolic dysfunction seen without tissue Doppler evidence of late left atrial pressure. 2. Trace aortic, mitral and tricuspid regurgitation. 3. No significant pericardial effusion noted. 4. Inferior vena cava is poorly visualized. Electronically signed by : Chad Sullivan MD 08/04/2022 05:55:30
== END ==
PROVIDERS: PCP Nurse Practitioner Family; Visit Provider Physician Assistant
DX: E11.69 Type 2 diabetes mellitus with other specified complication (principal); E78.2 Mixed hyperlipidemia; G47.33 Obstructive sleep apnea (adult) (pediatric); I10 Essential (primary) hypertension; I25.118 Atherosclerotic heart disease of native coronary artery with other forms of angina pectoris; N18.30 Chronic kidney disease, stage 3 unspecified; R06.09 Other forms of dyspnea; R42 Dizziness and giddiness; R55 Syncope and collapse; W19.XXXA Unspecified fall, initial encounter; Z95.1 Presence of aortocoronary bypass graft; Z79.4 Long term (current) use of insulin
CPT/HCPCS: 93306; 93880

== ENCOUNTER 2022-08-04 12:04 | Day surgery (SDC) | payer MEDICARE, SELFPAY ==
[2022-08-04] VITALS (10 sets, daily range): BP systolic 126–226; BP diastolic 62–100; PULSE 67–81; RESP 18; O2SAT 96–100; BMI 34.1
--- NOTE | 2022-08-04 11:57 | IR_ITS ---
APPROVED REPORT Patient Location: Outpatient Content Administrator: VIRGINIA Manley RT (R) PROCEDURES Left heart catheterization Left ventriculogram Selective coronary angiogram INDICATION Known coronary artery disease, History of coronary bypass surgery, Recent proximal LAD stent, Unstable angina/acute coronary syndrome Informed consent was obtained prior to the procedure. COMPLICATIONS None Estimated Blood Loss: Less than 10 mls TECHNIQUE One percent lidocaine used to anesthetize the right groin. The right femoral artery was accessed via the Seldinger technique and a 5 Divehi sheath was placed in the right femoral artery. A JL 4, JR4 catheter were used to perform left heart catheterization, left ventriculogram selective coronary angiography as well as selective engagement of the 2 vein grafts and the left internal mammary artery. At the end the procedure the apparatus was removed the groin is reprepped closure change sheath was removed good hemostasis was achieved using Perclose device patient was transferred to the postop holding in stable condition ANGIOGRAPHIC RESULTS The left main artery Normal The left anterior descending artery Has a stent in the proximal segment which is widely patent with excellent proximal distal transitioning The circumflex artery Nondominant with mild luminal irregularities The right coronary artery Large dominant with a stent in the ostial proximal segment which is widely patent with minimal 10 to 20% eccentric stenosis in the ostial segment The WANG ventriculogram reveals Hyperdynamic 70 to 75% The left ventricular end-diastolic pressure 10 mmHg The ZAKIA graft was not engaged given the wide patency of the dominant right coronary artery and the fact the ZAKIA was engaged just 2 weeks ago. Patient also has renal insufficiency with a creatinine of 1.6 IMPRESSION Treatment of diastolic dysfunction Maximize antianginal medications Consider evaluation of noncardiac symptoms perhaps GI in etiology Electronically signed by : Glen Betts MD 08/04/2022 13:19:25
[2022-08-04 13:09] LABS: Chloride 100 mmol/L (98-107); Potassium 5.1 mmoL/L (3.5-5.1); Sodium 137 mmol/L (136-145)
[2022-08-04 13:12] LABS: Anion Gap 11.1 mEq/L (5-15); Blood Urea Nitrogen 19 mg/dl (7-17); Calcium 9.2 mg/dl (8.4-10.2); Carbon Dioxide 31 mmol/L (22.0-30.0); Creatinine Clearance Estimated 49 mL/min (50-200); Estimated Glomerular Filt Rate 34 ml/min (>60); GFR (African American) 41 ML/MIN (>60); Glucose 86 mg/dl (74-100)
--- NOTE | 2022-08-04 14:44 | SUR.PHASEII ---
1440 patient states doesnt feel good , feels hot. FSBG was 36. Patient given 2 orange juices, and ate a chicken salad sandwich. states feels better. Patient rechecked FSBG was 56 and going up. Will recheck.
--- NOTE | 2022-08-04 15:12 | SUR.PHASEII ---
patient fsbg 116.
--- NOTE | 2022-08-04 15:15 | SUR.PHASEII ---
Patient can be discharged at [address] Betts
== END 2022-08-04 15:37 | disposition home or self-care (01) ==
LOC: CATHLAB 12:05
PROVIDERS: PCP Nurse Practitioner Family; Visit Provider Internal Medicine
DX: I25.110 Atherosclerotic heart disease of native coronary artery with unstable angina pectoris (principal); Z95.1 Presence of aortocoronary bypass graft; R07.9 Chest pain, unspecified; E11.9 Type 2 diabetes mellitus without complications; Z79.4 Long term (current) use of insulin; Z79.899 Other long term (current) drug therapy; N18.30 Chronic kidney disease, stage 3 unspecified; I12.9 Hypertensive chronic kidney disease with stage 1 through stage 4 chronic kidney disease, or unspecified chronic kidney disease; E78.5 Hyperlipidemia, unspecified
CPT/HCPCS: 80048; 93459; 99152; C1725; C1760; C1769; C1894; J1644; Q9967

== ENCOUNTER → 2022-08-25 09:05 | Outpatient (CLI) | payer MEDICARE, SELFPAY | PROVIDERS: PCP Nurse Practitioner Family; Visit Provider Nurse Practitioner | DX: E11.69 Type 2 diabetes mellitus with other specified complication (principal); E78.2 Mixed hyperlipidemia; G47.33 Obstructive sleep apnea (adult) (pediatric); I10 Essential (primary) hypertension; I25.118 Atherosclerotic heart disease of native coronary artery with other forms of angina pectoris; N18.30 Chronic kidney disease, stage 3 unspecified; R06.09 Other forms of dyspnea; R42 Dizziness and giddiness; R55 Syncope and collapse; R60.9 Edema, unspecified; W19.XXXA Unspecified fall, initial encounter; Z95.1 Presence of aortocoronary bypass graft; Z79.4 Long term (current) use of insulin | CPT/HCPCS: 93270 ==

== ENCOUNTER → 2022-09-22 10:15 | Outpatient (CLI) | payer MEDICARE, SELFPAY ==
--- NOTE | 2022-09-22 | US_ITS ---
FINAL REPORT CLINICAL HISTORY: HTN, DM, hyperlipidemia, CAD, CABG 2019, bilateral claudication, bilateral rest pain FINDINGS: COMPLETE ANKLE/BRACHIAL INDICES BILATERAL Complete ankle brachial indices were obtained. The right FAWN is 1.0. The left FAWN is 1.0. IMPRESSION: The ABIs are within normal limits bilaterally. Reviewed, Interpreted and Dictated by Timothy Zapata III, MD Transcribed by Nurys Brown Authenticated and . [facility]
== END ==
PROVIDERS: PCP Nurse Practitioner Family; Visit Provider Nurse Practitioner Family
DX: I73.9 Peripheral vascular disease, unspecified (principal)
CPT/HCPCS: 93923

== ENCOUNTER 2022-11-12 09:02 | Emergency (ER) | payer MEDICARE, SELFPAY ==
[2022-11-12 09:02] VITALS: BP 129/60; PULSE 77; RESP 16; TEMP 37.1; O2SAT 98; BMI 34.3
--- NOTE | 2022-11-12 09:27 | EXP.UTC ---
Discharge Plan Disposition Patient Disposition: Home, Self-Care Condition: Good Prescriptions Prescriptions: New azithromycin [Zithromax] 250 mg tablet 250 mg PO UD DOSE PK Qty: 6 0RF Rx Instructions: Take two (2) tablets today, then one (1) tablet days #2 thru #5 benzonatate [benzonatate] 100 mg capsule 100 mg PO TIDP PRN (Reason: Cough) Qty: 30 0RF methylprednisolone 4 mg Tablets,Dose Pack 4 mg PO DIRECTED Qty: 21 0RF No Action aspirin [Adult Low Dose Aspirin] 81 mg tablet,delayed release (DR/EC) 81 mg PO DAILY ezetimibe 10 mg tablet 10 mg PO DAILY 90 Days magnesium 250 mg tablet 500 mg PO DAILY lansoprazole 30 mg capsule,delayed release(DR/EC) 30 mg PO DAILY ranolazine 1,000 mg tablet extended release 12 hr 1,000 mg PO BID Qty: 60 5RF fluticasone propionate 50 mcg/actuation spray,suspension 1 spray intranasal DAILY Novolin 70/30 U-100 Insulin 100 unit/mL (70-30) suspension 30 unit SQ BID Rx Instructions: 48 in AM 38 in PM Jardiance 10 mg tablet 10 mg PO DAILY furosemide 20 mg tablet 20 mg PO DAILY clopidogrel 75 mg tablet 75 mg PO DAILY Qty: 30 5RF Repatha SureClick 140 mg/mL pen injector See Rx Instructions .ROUTE .COMPLEX Qty: 2 1RF Dose Instruction: INJECT 1 AUTO INJECTOR SUBCUTANEOUSLY EVERY TWO WEEKS Rx Instructions: INJECT 1 AUTO INJECTOR SUBCUTANEOUSLY EVERY TWO WEEKS pantoprazole 40 mg tablet,delayed release (DR/EC) 40 mg PO DAILY Qty: 90 1RF bisoprolol fumarate 10 mg tablet 10 mg PO DAILY Qty: 90 1RF escitalopram oxalate 20 MG tablet 20 mg PO DAILY milnacipran 50 MG tablet 50 mg PO BID MDD pain Referrals Follow up/Referrals: Nola Fay APRN [Primary Care Provider] - See instructions Activity Restrictions/Add. Instructions Additional Instructions/Restrictions: Drink plenty of fluids. Take tylenol or ibuprofen for pain or fever. Take the medications as directed. Follow up with your regular doctor. GO TO THE ER FOR ANY WORSENING SYMPTOMS Clinical Impressions Clinical Impression: Sinusitis Instructions Patient Instructions: Sinusitis, DI for Sinusitis Discharge ED Provider: Jose F Brown [facility] [place] General Stated complaint: Sore throat, possible sinus infection Mode of Arrival: Ambulatory Source of Information: Patient Limitations: No Limitations Time Seen by Provider: 11/12/22 09:27 HEENT Symptoms (Recalled from RN notes): Yes Resp Symptoms (Recalled from RN notes): No Skin Symptoms (Recalled from RN notes): No MS Symptoms (Recalled from RN notes): No Functional Status (Recalled from RN notes): wnl History of Present Illness Provider Complaint: Patient complaint of a possible sinus infection. Sore throat bilateral ear pain. Related Data Home Medications Medication Instructions Recorded Confirmed aspirin 81 mg tablet,delayed 81 mg PO DAILY heart health 11/22/17 09/27/22 release (Adult Low Dose Aspirin) ezetimibe 10 mg tablet 10 mg PO DAILY Cholesterol 90 days 11/22/17 09/27/22 milnacipran 50 mg tablet 50 mg PO BID fibromyalgia 02/05/18 09/27/22 magnesium 250 mg tablet 500 mg PO DAILY Supplement 07/23/19 09/27/22 lansoprazole 30 mg capsule,delayed 30 mg PO DAILY acid reflux 11/06/19 09/27/22 release escitalopram oxalate 20 mg tablet 20 mg PO DAILY anxiety/depression 06/17/20 09/27/22 empagliflozin 10 mg tablet 10 mg PO DAILY Diabetes 03/29/21 09/27/22 (Jardiance) insulin human U-100 NPH-regulr 30 unit SQ BID Diabetes 05/26/21 09/27/22 70-30 mix 100 unit/mL subcutaneous susp (Novolin 70/30 U-100 Insulin) fluticasone propionate 50 1 spray intranasal DAILY ALLERGIES 03/28/22 09/27/22 mcg/actuation nasal spray,suspension furosemide 20 mg tablet 20 mg PO DAILY Edema 04/07/22 09/27/22 Previous Rx's Medication Instructions Recorded ranolazine 1,000 mg 1,000 mg PO BID Angina #60 tabs 08/04/22 table
[2022-11-12 09:29] LABS: UTC Strep Screen (Rapid) Positive (Negative)
[2022-11-12 10:01] VITALS: BP 129/60; PULSE 77; RESP 16; TEMP 37.1; O2SAT 98
== END 2022-11-12 10:02 | disposition home or self-care (01) ==
PROVIDERS: Emergency Provider Nurse Practitioner Family; PCP Nurse Practitioner Family
DX: J02.0 Streptococcal pharyngitis (principal); J01.90 Acute sinusitis, unspecified; H92.03 Otalgia, bilateral
CPT/HCPCS: 87880; 99212; 99214; G0463

== ENCOUNTER → 2022-11-18 12:12 | Outpatient (CLI) | payer MEDICARE, SELFPAY ==
--- NOTE | 2022-11-18 12:18 | XR_ITS ---
FINAL REPORT CLINICAL HISTORY: Nonspecific cough, shortness of breath COMPARISON: 03/28/2022 FINDINGS: There is no evidence of effusion or other pleural disease. The mediastinum has a normal appearance. The cardiac silhouette is unremarkable. IMPRESSION: Unremarkable chest exam. No change. Reviewed, Interpreted and Dictated by Scott Wong MD Transcribed by Annalise Rizo Authenticated and [facility]
== END ==
PROVIDERS: PCP Nurse Practitioner Family; Visit Provider Student in an Organized Health Care Education/Training Program
DX: R05.9 Cough, unspecified (principal)
CPT/HCPCS: 71046

== ENCOUNTER → 2022-11-18 23:23 | Outpatient (CLI) | payer MEDICARE, SELFPAY ==
[2022-11-18 17:46] LABS: Adenovirus,PCR Not Detected (NotDetected); Bordetella Pertussis Not Detected (NotDetected); Chlamydophila Pneumoniae, PCR Not Detected (NotDetected); Coronavirus 19, PCR Not Detected (NotDetected); Coronavirus 229E Not Detected (NotDetected); Coronavirus NL63 Not Detected (NotDetected); Coronavirus OC43 Not Detected (NotDetected); Coronovirus HKU1,PCR Not Detected (NotDetected); Influenza A, PCR Not Detected (NotDetected); Influenza AH1, 2009 Not Detected (NotDetected); Influenza AH1, PCR Not Detected (NotDetected); Influenza AH3,PCR Not Detected (NotDetected); Influenza B, PCR Not Detected (NotDetected); Mycoplasma Pneumoniae, PCR Not Detected (NotDetected); Parainfluenza 1, PCR Not Detected (NotDetected); Parainfluenza 2, PCR Not Detected (NotDetected); Parainfluenza 3, PCR Not Detected (NotDetected); Parainfluenza 4, PCR Not Detected (NotDetected); Respiratory Syncytial Virus Not Detected (NotDetected); Rhinovirus/Enterovirus Not Detected (NotDetected)
[2022-11-18 21:37] LABS: Human Metapneumovirus Detected (NotDetected)
== END ==
LOC: LAB.DROPOF 23:23
PROVIDERS: PCP Student in an Organized Health Care Education/Training Program; Visit Provider Student in an Organized Health Care Education/Training Program
DX: R05.9 Cough, unspecified (principal); B97.81 Human metapneumovirus as the cause of diseases classified elsewhere; R06.02 Shortness of breath; R09.89 Other specified symptoms and signs involving the circulatory and respiratory systems
CPT/HCPCS: 71046; 87581; 87632; 87798; C9803; U0003; U0005

== ENCOUNTER → 2022-11-29 19:27 | Outpatient (CLI) | payer MEDICARE, SELFPAY | PROVIDERS: PCP Nurse Practitioner Family; Visit Provider Nurse Practitioner Family | DX: R30.0 Dysuria (principal) | CPT/HCPCS: 87086 ==

== ENCOUNTER 2022-12-18 15:21 | Emergency (ER) | payer MEDICARE, SELFPAY ==
[2022-12-18 15:24] VITALS: BP 132/50; PULSE 74; RESP 18; TEMP 36.9; O2SAT 99; BMI 33.1
[2022-12-18 15:29] VITALS: BP 132/50; PULSE 66; RESP 18; O2SAT 99
--- NOTE | 2022-12-18 15:41 | HMH.EDGENADL ---
Discharge Plan Disposition Patient Disposition: Home, Self-Care Condition: Fair Prescriptions Prescriptions: No Action aspirin [Adult Low Dose Aspirin] 81 mg tablet,delayed release (DR/EC) 81 mg PO DAILY ezetimibe 10 mg tablet 10 mg PO DAILY 90 Days magnesium 250 mg tablet 500 mg PO DAILY ranolazine 1,000 mg tablet extended release 12 hr 1,000 mg PO BID Qty: 60 5RF dicyclomine 10 mg capsule 10 mg PO TID MDD 40 PRN (Reason: abdominal pain) Qty: 90 0RF cholecalciferol (vitamin D3) 125 mcg (5,000 unit) capsule 125 mcg PO DAILY Novolin 70/30 U-100 Insulin 100 unit/mL (70-30) suspension 30 unit SQ BID Rx Instructions: 48 in AM 38 in PM Jardiance 10 mg tablet 10 mg PO DAILY furosemide 20 mg tablet 20 mg PO DAILY clopidogrel 75 mg tablet 75 mg PO DAILY Qty: 30 5RF pantoprazole 40 mg tablet,delayed release (DR/EC) 40 mg PO DAILY Qty: 90 1RF bisoprolol fumarate 10 mg tablet 10 mg PO DAILY Qty: 90 1RF Repatha SureClick 140 mg/mL pen injector See Rx Instructions .ROUTE .COMPLEX Qty: 2 0RF Dose Instruction: INJECT 1 AUTO INJECTOR SUBCUTANEOUSLY EVERY TWO WEEKS Rx Instructions: INJECT 1 AUTO INJECTOR SUBCUTANEOUSLY EVERY TWO WEEKS escitalopram oxalate 20 MG tablet 20 mg PO DAILY milnacipran 50 MG tablet 50 mg PO BID MDD pain Referrals Follow up/Referrals: Maribel Ambriz APRN [Primary Care Provider] - See instructions Clinical Impressions Clinical Impression: Skin tear of left hand without complication, Contusion of elbow, left, Contusion of knee, left, Head injury Instructions Patient Instructions: How to Prevent Falls Print Language Print Language: [place] Discharge ED Provider: Mata Hernandez Adult HPI General Chief complaint: Fall Stated complaint: AO 2:30 left knee pain Time Seen by Provider: 12/18/22 15:41 Mode of Arrival: Ambulatory Limitations: No Limitations Description of Symptoms (Recalled from ER Triage Doc. by RN): PT REPORTS FALL FROM STANDING, GOT TRIPPED. LANDED ON LEFT KNEE, LEFT ELBOW AND HIT HEAD. DENIES LOC. BRUISING NOTED TO LEFT KNEE AND ELBOW. SKIN TEAR TO LEFT HAND. History of Present Illness HPI narrative: Patient presents the emergency department after a fall from standing. The patient fell forward. Patient had a mechanical fall MD complaint: Knee pain, headache, left arm pain. Onset (ago): hour(s) (1) Location: head, left, upper extremity and lower extremity Severity: moderate Relieving factors: none Exacerbating factors: none Associated symptoms: negative chest pain Related Data Home Medications Medication Instructions Recorded Confirmed aspirin 81 mg tablet,delayed 81 mg PO DAILY heart health 11/22/17 12/19/22 release (Adult Low Dose Aspirin) ezetimibe 10 mg tablet 10 mg PO DAILY Cholesterol 90 days 11/22/17 12/19/22 milnacipran 50 mg tablet 50 mg PO BID fibromyalgia 02/05/18 12/19/22 magnesium 250 mg tablet 500 mg PO DAILY Supplement 07/23/19 12/19/22 escitalopram oxalate 20 mg tablet 20 mg PO DAILY anxiety/depression 06/17/20 12/19/22 empagliflozin 10 mg tablet 10 mg PO DAILY Diabetes 03/29/21 12/19/22 (Jardiance) insulin human U-100 NPH-regulr 30 unit SQ BID Diabetes 05/26/21 12/19/22 70-30 mix 100 unit/mL subcutaneous susp (Novolin 70/30 U-100 Insulin) furosemide 20 mg tablet 20 mg PO DAILY Edema 04/07/22 12/19/22 cholecalciferol (vitamin D3) 125 125 mcg PO DAILY 11/29/22 12/19/22 mcg (5,000 unit) capsule Previous Rx's Medication Instructions Recorded ranolazine 1,000 mg 1,000 mg PO BID Angina #60 tabs 08/04/22 tablet,extended release,12 hr clopidogrel 75 mg tablet 75 mg PO DAILY Blood thinner #30 09/05/22 tabs bisoprolol fumarate 10 mg tablet 10 mg PO DAILY #90 tabs 11/02/22 pantoprazole 40 mg tablet,delayed 40 mg PO DAILY #90 tabs 11/02/22 release evolocumab 140 mg/mL subcutaneous See Rx Instructions .Route 11/30/22 pen injec
--- NOTE | 2022-12-18 15:54 | XR_ITS ---
PROCEDURE INFORMATION: Exam: XR Left Hand Exam date and time: 12/18/2022 4:07 PM Age: 72 years old Clinical indication: Injury or trauma; Fall; Blunt trauma (contusions or hematomas); Hand; Patient HX: Patient fell, skin tear near base of left thumb. TECHNIQUE: Imaging protocol: Radiologic exam of the left hand. Views: 3 or more views. COMPARISON: CR HANDL3 HAND-LT-3 VIEWS 02/03/2016 9:38 AM FINDINGS: Bones/joints: Normal. No fracture identified. Soft tissues: Normal. IMPRESSION: No acute findings.
--- NOTE | 2022-12-18 15:54 | CT_ITS ---
PROCEDURE INFORMATION: Exam: CT Head Without Contrast Exam date and time: 12/18/2022 4:08 PM Age: 72 years old Clinical indication: Injury or trauma; Fall; Blunt trauma (contusions or hematomas); Without loss of consciousness; Additional info: Headache, head trauma TECHNIQUE: Imaging protocol: Computed tomography of the head without contrast. Radiation optimization: All CT scans at this facility use at least one of these dose optimization techniques: automated exposure control; mA and/or kV adjustment per patient size (includes targeted exams where dose is matched to clinical indication); or iterative reconstruction. REPORTING DATA: Count of CT and Cardiac NM exams in prior 12 months: This patient has received 5 known CTs and 0 known cardiac nuclear medicine studies in the 12 months prior to the current study. COMPARISON: CT HEAD/BRAIN WO CON 07/28/2022 3:42 PM FINDINGS: Brain: No intracranial hemorrhage. Generalized atrophic changes of the ventricles and subarachnoid spaces. Chronic small-vessel ischemic changes noted. No mass, mass effect or midline shift. Intracranial atherosclerotic changes are noted. Cerebral ventricles: See Brain finding. Paranasal sinuses: Minimal mucosal thickening versus minimal air-fluid level in the posterior right maxillary sinus. Sinuses otherwise clear. Mastoid air cells: Visualized mastoid air cells are well aerated. Bones/joints: Unremarkable. No acute fracture. Soft tissues: Unremarkable. IMPRESSION: 1. Stable noncontrast CT brain with chronic changes. No acute intracranial abnormality. 2. Incidental mild right maxillary sinus disease of uncertain acuity.
--- NOTE | 2022-12-18 15:54 | XR_ITS ---
PROCEDURE INFORMATION: Exam: XR Left Elbow Exam date and time: 12/18/2022 4:07 PM Age: 72 years old Clinical indication: Injury or trauma; Fall; Blunt trauma (contusions or hematomas); Patient HX: Patient fell, left elbow pain. ; Additional info: Elbow injury TECHNIQUE: Imaging protocol: Radiologic exam of the left elbow. Views: 3 or more views. COMPARISON: NM BTBB NUC BONE SCAN-WHOLE BODY-TBB 05/31/2017 2:26 PM FINDINGS: Bones/joints: Normal. No fracture identified. Soft tissues: Normal. IMPRESSION: No acute findings.
--- NOTE | 2022-12-18 15:54 | XR_ITS ---
PROCEDURE INFORMATION: Exam: XR Left Knee Exam date and time: 12/18/2022 4:07 PM Age: 72 years old Clinical indication: Injury or trauma; Fall; Blunt trauma; Knee; Left; Additional info: Knee injury TECHNIQUE: Imaging protocol: Radiologic exam of the left knee. Views: 3 views. COMPARISON: CR XR KNEE LT 3V 09/14/2020 10:12 AM FINDINGS: Bones/joints: Degenerative changes of the medial compartment and the patellofemoral compartment noted. No evident fracture. No evident joint effusion. Soft tissues: Soft tissue swelling anterior to the knee. IMPRESSION: Soft tissue swelling. No acute fracture.
--- NOTE | 2022-12-18 15:54 | XR_ITS ---
PROCEDURE INFORMATION: Exam: XR Left Humerus Exam date and time: 12/18/2022 4:07 PM Age: 72 years old Clinical indication: Injury or trauma; Blunt trauma (contusions or hematomas); Arm, upper; Patient HX: Left humerus pain due to fall. TECHNIQUE: Imaging protocol: Radiologic exam of the left humerus. Views: 2 or more views. COMPARISON: NM BTBB NUC BONE SCAN-WHOLE BODY-TBB 05/31/2017 2:26 PM FINDINGS: Bones/joints: Normal. No fracture identified. Soft tissues: Normal. IMPRESSION: No acute findings.
[2022-12-18 16:01] VITALS: BP 122/48; PULSE 65; RESP 18; O2SAT 99
--- NOTE | 2022-12-18 16:05 | PC.NURSE ---
PT TO XR
--- NOTE | 2022-12-18 16:10 | PC.NURSE ---
PT RETURNED FROM XR
[2022-12-18 16:30] VITALS: BP 138/58; PULSE 63; RESP 20; O2SAT 99
--- NOTE | 2022-12-18 17:09 | PC.NURSE ---
PT RESTING IN BED NOTHING NEEDED AT THIS TIME , AT BS
[2022-12-18 17:10] VITALS: BP 129/55; PULSE 62; RESP 18; TEMP 36.6; O2SAT 98
== END 2022-12-18 17:10 | disposition home or self-care (01) ==
PROVIDERS: Emergency Provider Emergency Medicine; PCP Nurse Practitioner Family
DX: R51.9 Headache, unspecified (principal); S50.02XA Contusion of left elbow, initial encounter; S80.02XA Contusion of left knee, initial encounter; I20.9 Angina pectoris, unspecified; Z85.3 Personal history of malignant neoplasm of breast; W01.0XXA Fall on same level from slipping, tripping and stumbling without subsequent striking against object, initial encounter; Z23 Encounter for immunization
CPT/HCPCS: 70450; 73060; 73080; 73130; 73562; 90471; 90714; 96372; 99284; 99285

== ENCOUNTER → 2022-12-19 11:40 | Outpatient (CLI) | payer MEDICARE, SELFPAY ==
[2022-12-19 12:28] LABS: Basophils % 0.5 % (0.1-2.0); Eosinophils % 0.7 % (0.1-12.0); Hemoglobin 13.3 g/dL (12.2-16.2); Lymphocytes # 2.1 K/mm3 (0.7-4.5); Lymphocytes % 36.9 % (10-50); Mean Corpuscular HGB Conc 31.6 g/dL (31.8-35.4); Mean Corpuscular Hemoglobin 28.7 pg (27.0-31.2); Mean Corpuscular Volume 90.9 fl (81-99); Mean Platelet Volume 7.9 fl (7.4-10.4); Monocytes # 0.4 K/mm3 (0.1-1.0); Monocytes % 7.3 % (1.7-9.3); Neutrophils # 3.1 K/mm3 (1.8-7.8); Neutrophils % 54.7 % (37.0-80.0); Platelet Count 274 K/mm3 (142-424); Red Blood Count 4.62 M/mm3 (4.20-5.40); Red Cell Distribution Width 14.2 % (11.5-17.5); White Blood Count 5.7 K/mm3 (4.8-10.8)
[2022-12-19 12:34] LABS: INR 0.98 (0.9-1.1); Prothrombin Time 10.6 seconds (10.1-12.5)
[2022-12-19 13:40] LABS: Alanine Aminotransferase 23 U/L (12-78); Albumin Level 4.2 g/dl (3.5-5.0); Albumin/Globulin Ratio 1.8 (1.1-1.8); Alkaline Phosphatase 75 U/L (38-126); Aspartate Amino Transferase 29 U/L (14-36); Bilirubin,Total 0.5 mg/dl (0.2-1.3); Blood Urea Nitrogen 18 mg/dl (7-17); Calcium 9.2 mg/dl (8.4-10.2); Carbon Dioxide 27 mmol/L (22.0-30.0); Chloride 100 mmol/L (98-107); Chol/HDL Ratio 2.1 (1-3.5); Cholesterol 171 mg/dl (140-200); Estimated Glomerular Filt Rate 40 ml/min (>60); GFR (African American) 49 ML/MIN (>60); Globulin 2.4 g/dL (1.3-3.2); Glucose 117 mg/dl (74-100); HDL Cholesterol 82 mg/dl (40-60); Magnesium 2.3 mg/dl (1.6-2.3); Sodium 134 mmol/L (136-145); Total Protein,Serum 6.6 g/dl (6.3-8.2); Triglycerides 117 mg/dl (30-150); VLDL Cholesterol 23 mg/dL (0-40)
[2022-12-19 13:51] LABS: Direct LDL Cholesterol 73.14 mg/dL (100-129)
[2022-12-19 14:05] LABS: 25-OH Vitamin D, Total 26.3 ng/mL (30-100)
[2022-12-19 14:11] LABS: Thyroid Stimulating Hormone 2.26 uIU/mL (0.465-4.68)
[2022-12-19 14:30] LABS: Vitamin B12 404 pg/mL (239-931)
[2022-12-19 21:38] LABS: Hemoglobin A1C 7.1 % (4.0-6.0)
== END ==
PROVIDERS: PCP Nurse Practitioner Family; Visit Provider Nurse Practitioner Family
DX: R07.9 Chest pain, unspecified; R42 Dizziness and giddiness; R55 Syncope and collapse; N18.30 Chronic kidney disease, stage 3 unspecified; E11.9 Type 2 diabetes mellitus without complications; E55.9 Vitamin D deficiency, unspecified; R30.0 Dysuria; Z79.4 Long term (current) use of insulin; W19.XXXA Unspecified fall, initial encounter
CPT/HCPCS: 36415; 80053; 80061; 82306; 82607; 83036; 83735; 84443; 85025; 85610

== ENCOUNTER → 2022-12-26 15:48 | Outpatient (CLI) | payer MEDICARE, SELFPAY ==
--- NOTE | 2022-12-26 15:48 | MM_ITS ---
PROCEDURE INFORMATION: Exam: MG Bilateral Screening 3D Mammography Exam date and time: 12/26/2022 3:45 PM Age: 72 years old Clinical indication: Screening examination; Family history of breast cancer in sister TECHNIQUE: Imaging protocol: Bilateral Screening tomosynthesis and 2D mammography including computer-aided detection (CAD) when performed. COMPARISON: 1. MG MM DIG MAMM DX UNILAT RT CAD 01/05/2022 1:14 PM 2. MG MM DIG SCREENING MAMM BI W/CAD 12/21/2021 1:12 PM FINDINGS: MAMMOGRAPHY: Breast composition: There are scattered areas of fibroglandular density. Mass: None. Architectural distortion: None. Calcifications: No suspicious calcifications. Asymmetric density: None. Skin thickening: None. Axillary adenopathy: None. IMPRESSION: No mammographic evidence of malignancy. Annual screening is recommended unless otherwise clinically indicated. ASSESSMENT: BI-RADS Category 1: Negative
== END ==
PROVIDERS: PCP Nurse Practitioner Family; Visit Provider Nurse Practitioner Family
DX: Z12.31 Encounter for screening mammogram for malignant neoplasm of breast (principal)
CPT/HCPCS: 77063; 77067

== ENCOUNTER → 2023-01-23 07:01 | Outpatient (CLI) | payer MEDICARE, SELFPAY ==
--- NOTE | 2023-01-23 07:03 | US_ITS ---
PROCEDURE INFORMATION: Exam: US Left Breast, Complete Exam date and time: 01/23/2023 7:16 AM Age: 72 years old Clinical indication: Personal history of breast cancer; Prev lumpectomy at 2:00 TECHNIQUE: Imaging protocol: Complete ultrasound of all four quadrants of the left breast and the retroareolar regions, including ultrasound of the axilla when performed. COMPARISON: US BREAST LT COMPLETE 01/21/2022 9:28 AM FINDINGS: Breast: Sonographic images of the left breast including the retroareolar region, all 4 quadrants and the axilla do not demonstrate any solid or cystic masses. No suspicious architectural distortion or acoustical shadowing. Stable postoperative change in the left upper outer quadrant lumpectomy site. No skin thickening or axillary adenopathy. IMPRESSION: No sonographic evidence of malignancy.Annual bilateral mammographic screening is recommended unless otherwise clinically indicated. ASSESSMENT: BI-RADS Category 2: Benign
== END ==
PROVIDERS: PCP Nurse Practitioner Family; Visit Provider Internal Medicine Medical Oncology
DX: C50.912 Malignant neoplasm of unspecified site of left female breast (principal)
CPT/HCPCS: 76641

== ENCOUNTER 2023-02-28 15:04 | Observation (INO) | payer MEDICARE, SELFPAY ==
[2023-02-28 11:47] LABS: Basophils # 0.1 K/mm3 (0-0.2); Eosinophils % 0.6 % (0.1-12.0); Hematocrit 46.1 % (37.0-47.0); Hemoglobin 14.6 g/dL (12.2-16.2); Lymphocytes # 2.9 K/mm3 (0.7-4.5); Lymphocytes % 40.4 % (10-50); Mean Corpuscular HGB Conc 31.7 g/dL (31.8-35.4); Mean Corpuscular Hemoglobin 29.9 pg (27.0-31.2); Mean Corpuscular Volume 94.3 fl (81-99); Mean Platelet Volume 8.1 fl (7.4-10.4); Monocytes # 0.3 K/mm3 (0.1-1.0); Monocytes % 4.8 % (1.7-9.3); Neutrophils # 3.7 K/mm3 (1.8-7.8); Neutrophils % 53.2 % (37.0-80.0); Platelet Count 258 K/mm3 (142-424); Red Blood Count 4.89 M/mm3 (4.20-5.40); Red Cell Distribution Width 13.8 % (11.5-17.5)
[2023-02-28 12:07] LABS: Chloride 99 mmol/L (98-107); Potassium 4.7 mmoL/L (3.5-5.1); Sodium 136 mmol/L (136-145)
[2023-02-28 12:10] LABS: Alanine Aminotransferase 25 U/L (12-78); Albumin/Globulin Ratio 1.5 (1.1-1.8); Alkaline Phosphatase 73 U/L (38-126); Anion Gap 14.7 mEq/L (5-15); Aspartate Amino Transferase 30 U/L (14-36); Bilirubin,Total 0.5 mg/dl (0.2-1.3); Blood Urea Nitrogen 22 mg/dl (7-17); Carbon Dioxide 27 mmol/L (22.0-30.0); Estimated Glomerular Filt Rate 37 ml/min (>60); GFR (African American) 45 ML/MIN (>60); Globulin 2.6 g/dL (1.3-3.2); Glucose 121 mg/dl (74-100); Total Protein,Serum 6.6 g/dl (6.3-8.2)
[2023-02-28 12:18] LABS: Troponin I 0.06 ng/ml (0.00-0.034)
--- NOTE | 2023-02-28 15:13 | CA_ITS ---
APPROVED REPORT EXAM: Comprehensive 2D, Doppler, and color-flow Echocardiogram Director Of Radiology: Lesvia Dawson, RCS, RVS Ht: 5 ft 4 in Wt: 210lbs BSA: 2.00 BP: 132/50 mmHg Indications: NSTEMI, intermittent CP, HTN, HLD, DM, Obesity, Murmurs, CAD-CABG x 1, GERD 2D Dimensions IVSd 1.01 cm LA Volume 71.20 mL PWd 1.05 cm LA Volume Index 35.60 mL/m2 (M/F) 16-34 LVDd 4.68 cm LVDs 2.49 cm Aortic Root 2.62 cm Left Atrium 3.33 cm LVOT 1.82 cm (M/F) 1.5-2.5 M-Mode Dimensions RVDd 2.28 cm (0.9-2.6) LA Diam 4.00 cm (1.9-4.0) LVDd 3.94 cm (3.5-5.7) Ao Diam 2.33 cm (2.0-3.7) LVDs 3.04 cm (3.5-5.7) IVSd 1.22 cm (0.6-1.1) PWd 0.99 cm (0.6-1.1) EF (Teich) 48.30% EPSs 0.76 cm FS 24.00% EDV (Teich) 70.00 mL ESV (Teich) 36.20 mL LV Diastology E Decel Time 160.00 (160-240 msec) E/A Ratio 0.72 MED E' 5.60 (< 7 cm/sec) MED A' 9.40 cm/s E'/MED E' Ratio 14.09 (>14) LAT E' 6.10 (<10 cm/sec) LAT A' 11.00 cm/s E/LAT E' Ratio 12.93 (>14) Aortic Valve LVOT Max 91.00 (70-110 cm/s) LVOT VTI 22.70 cm AoV Peak Daron. 153.00 (50-130 cm/s) AI PHT 350.00 ms AO Peak GR. 9.40 mmHg AO Mean GR. 4.80 (<5 mmHg) AO VTI 31.72 (18-25 cm) HAIR (VTI) 1.86 (2.5-4.5 cm2) Mitral Valve MV A Velocity 109.00 (40-130 cm/s) E/A Ratio 0.72 MV Decel. Time 160.00 (160-240 ms) MV Mean Gr. 1.60 (<2mmHg) Pulmonary Valve PV Peak Velocity 87.00 (50-150 cm/s) Tricuspid Valve TR P. Velocity 223.00 cm/s RAP Estimate 10.00 mmHg RVSP 29.90 mmHg Left Ventricle The left ventricle is normal size. The left ventricular systolic function is normal. The left ventricular ejection fraction is within the normal range. There is increased LV wall thickness. There is mild hypokinesis of the basal anterior and anterolateral LV harmon. The left ventricular diastolic function is normal. LVEF is 55%. Right Ventricle The right ventricle is mildly dilated. The right ventricular systolic function is normal. Atria The left atrium is mildly dilated. The right atrium size is normal. Aortic Valve The aortic valve is mildly thickened. There is no aortic valvular stenosis. Mild aortic regurgitation. Mitral Valve The mitral valve is mildly thickened. No evidence of mitral valve stenosis. Trace mitral regurgitation. Tricuspid Valve The tricuspid valve leaflets are thin and pliable. Trace tricuspid regurgitation. RVSP is normal. Pulmonic Valve The pulmonary valve is normal in structure. Trace pulmonic regurgitation. Great Vessels The aortic root is normal in size. The ascending aorta is normal in size. IVC is normal in size and collapses >50% with inspiration. Pericardium There is no pericardial effusion. Other Information Study Quality: Technically Difficult Conclusion Technically difficult study due to poor acoustic windows. Normal biventricular systolic function (LVEF 55%) Mild hypokinesis of the basal anterior and anterolateral LV harmon. Mildly dilated RV with normal RV function. Mild left atrial enlargement. No significant valvular stenosis or regurgitation. Electronically signed by : Daisy Wilkins, 03/01/2023 01:04:20
--- NOTE | 2023-02-28 15:19 | EXP.CARD.PN ---
Subjective Subjective Date: 02/28/23 Time: 15:19 Principal diagnosis: NSTEMI Interval history: 72-year-old white female seen in the office today at the request of her PCP due to 4-day history of intermittent chest pain radiating to the back and into the left arm. Troponin was drawn today and noted to be elevated and referred for further evaluation. EKG is sinus with no acute ST segment changes. It was felt the patient would benefit from hospitalization for stabilization prior to left heart catheterization tomorrow. Exam Data for Last 24 hours Vital signs and Labs for Last 24 Hours: Laboratory Results - last 24 hr 02/28/23 11:32: WBC 7.0, RBC 4.89, Hgb 14.6, Hct 46.1, MCV 94.3, MCH 29.9, MCHC 31.7 L, RDW 13.8, Plt Count 258, MPV 8.1, Neut % (Auto) 53.2, Lymph % (Auto) 40.4, [place] % (Auto) 4.8, Eos % (Auto) 0.6, Baso % (Auto) 1.0, Neut # (Auto) 3.7, Lymph # (Auto) 2.9, [place] # (Auto) 0.3, Eos # (Auto) 0.0, Baso # (Auto) 0.1, Sodium 136, Potassium 4.7, Chloride 99, Carbon Dioxide 27, Anion Gap 14.7, BUN 22 H, Creatinine 1.40 H, Estimated GFR 37 L, Est GFR ( Amer) 45 L, Glucose 121 H, Calcium 9.0, Total Bilirubin 0.5, AST 30, ALT 25, Alkaline Phosphatase 73, Troponin I 0.06 H, Total Protein 6.6, Albumin 4.0, Globulin 2.6, Albumin/Globulin Ratio 1.5 Constitutional Constitutional: no acute distress *Routine Respiratory Exam Respiratory: Present CTA bilaterally *Routine Cardiovascular Exam Cardiovascular: Present RRR and murmur; Absent gallop or rubs *Routine Extremities Exam Extremities: Absent edema *Routine Neurological Exam Neurological: Present alert and oriented X3 Progress Note: A&P Assessment and plan (1) NSTEMI (non-ST elevated myocardial infarction): Status: Acute (2) Chest tightness: Status: Acute (3) History of coronary artery bypass graft x 1: Problem details: 05/2019, Dr. Puckett Status: Acute (4) CKD (chronic kidney disease) stage 3, GFR 30-59 ml/min: Status: Acute (5) CAD (coronary artery disease): Status: Chronic (6) Hypertension: Status: Chronic (7) JANIS (obstructive sleep apnea): Status: Chronic (8) GERD (gastroesophageal reflux disease): Status: Acute Assessment and Plan Assessment and Plan for All Diagnoses:: CAD/NSTEMI NTG paste continue DAPT LHC in AM HTN continue home meds echo today JEFFREY bilateral ICA's less than 50%.(2022) HLD -Pt is on Zetia and Repatha. -check [facility] CKD stage 3 with Cr 1.4, GFR 37 DM2 -defer to Dr. Patricio JANIS uses CPAP History of breast cancer: Status post left breast lumpectomy with lymph node removal, s/p chemotherapy X 4 treatments and radiation therapy X 15 treatments approximately 2013
[2023-02-28 15:21] VITALS: BP 191/74; PULSE 72; RESP 18; TEMP 36.9; O2SAT 94; BMI 34.3
[2023-02-28 16:00] VITALS: PULSE 70
[2023-02-28 16:06] LABS: Basophils # 0.1 K/mm3 (0-0.2); Eosinophils # 0.1 K/mm3 (0.0-0.4); Eosinophils % 0.9 % (0.1-12.0); Hematocrit 43.9 % (37.0-47.0); Hemoglobin 14.1 g/dL (12.2-16.2); Lymphocytes # 2.9 K/mm3 (0.7-4.5); Lymphocytes % 40.9 % (10-50); Mean Corpuscular HGB Conc 32.1 g/dL (31.8-35.4); Mean Corpuscular Hemoglobin 30.4 pg (27.0-31.2); Mean Corpuscular Volume 94.5 fl (81-99); Mean Platelet Volume 9.5 fl (7.4-10.4); Monocytes # 0.5 K/mm3 (0.1-1.0); Monocytes % 7.7 % (1.7-9.3); Neutrophils # 3.5 K/mm3 (1.8-7.8); Neutrophils % 49.5 % (37.0-80.0); Platelet Count 135 K/mm3 (142-424); Red Blood Count 4.65 M/mm3 (4.20-5.40); Red Cell Distribution Width 13.9 % (11.5-17.5); White Blood Count 7.1 K/mm3 (4.8-10.8)
--- NOTE | 2023-02-28 16:23 | PC.NURSE ---
Rounded on patient, no needs or questions at this time. Daughter at bedside. Echo at bedside. Bed locked an in the lowest position, call light within reach.
[2023-02-28 16:26] LABS: Chloride 96 mmol/L (98-107); Potassium 5.5 mmoL/L (3.5-5.1); Sodium 133 mmol/L (136-145)
[2023-02-28 16:28] LABS: Alanine Aminotransferase 26 U/L (12-78); Anion Gap 13.5 mEq/L (5-15); Aspartate Amino Transferase 56 U/L (14-36); Bilirubin,Unconjugated 0.1 mg/dL (0.0-1.1); Blood Urea Nitrogen 22 mg/dl (7-17); Carbon Dioxide 29 mmol/L (22.0-30.0); Creatinine Clearance Estimated 52 mL/min (50-200); Estimated Glomerular Filt Rate 37 ml/min (>60); GFR (African American) 45 ML/MIN (>60)
[2023-02-28 16:29] LABS: Albumin Level 4.2 g/dl (3.5-5.0); Alkaline Phosphatase 43 U/L (38-126); Bilirubin,Direct 0.9 mg/dl (0.0-0.4); Bilirubin,Indirect 0.1 mg/dL (0.0-0.9); Calcium 8.6 mg/dl (8.4-10.2); Chol/HDL Ratio 2.6 (1-3.5); Cholesterol 153 mg/dl (140-200); Glucose 150 mg/dl (74-100); HDL Cholesterol 58 mg/dl (40-60); Total Protein,Serum 7.4 g/dl (6.3-8.2); Triglycerides 221 mg/dl (30-150); VLDL Cholesterol 44 mg/dL (0-40)
[2023-02-28 16:38] LABS: NT Pro Brain Natriuretic Pep. 621 pg/mL (0-125)
[2023-02-28 16:40] LABS: Direct LDL Cholesterol 62.09 mg/dL (100-129)
[2023-02-28 16:41] LABS: Troponin I 0.07 ng/ml (0.00-0.034)
--- NOTE | 2023-02-28 17:41 | EXP.HP ---
History of Present Illness *Admission Date: 02/28/23 *Reason for visit:: Chest pain, NSTEMI *History of present illness: Ms. Morales is a pleasant 72-year-old female with history of CAD, CABG, diabetes, hypertension. She presented to cardiology clinic today at the request of her PCP because of 4 days of intermittent chest pain that began on Monday. Initially had some radiation to her back and left arm. Troponin drawn in clinic today that was noted to be mildly elevated. Sent to cardiology clinic for further evaluation. EKG was sinus with no acute ST segment changes. Cardiology consulted medicine for direct admission for monitoring overnight, stabilization with medical management, and planned heart cath tomorrow morning. After arriving to the floor, patient is currently chest pain-free. On room air. Denies any shortness of breath. Does complain of having had some shortness of breath with exertion over the weekend. Denies any nausea, vomiting, confusion, palpitations. [facility] Disclaimer: The information contained in this section may have been updated after the patient was seen, as this information can be updated by other users. Medical History Abdominal pain Abnormal cardiovascular stress test Acute effusion of both middle ears Angina pectoris Atypical angina Breast CA Breast cancer in female Chest pain Chest pain Constipation, unspecified Contusion of elbow, left Contusion of knee, left Contusion of left upper arm Daytime somnolence Dehydration, mild Diastolic dysfunction Discharge from left nipple Dizziness Dyspnea Edema Edema of both lower extremities Extrapyramidal disorder Fall Fatigue Frequent falls Gallstones Head injury Kidney failure Labile blood pressure Left breast mass Restless sleeper Sinusitis Skin tear of left hand without complication Syncope Typical angina Typical angina Surgical History H/O thumb surgery H/O tubal ligation History of breast biopsy History of colonoscopy History of coronary artery bypass graft x 1 History of esophagogastroduodenoscopy (EGD) Stented coronary artery Family History Father Mother No significant family history Diabetes Sister Sister Coronary artery disease Sister Brother Congestive heart failure Mother Crohn's disease Mother Cancer Father Sister Hypertension Father Social History Smoking Status: Never smoker second hand exposure: No alcohol intake: current counseling provided: none substance use type: denies use current occupational status: retired Travel in the last 8 weeks: None household members: spouse housing: house marital status: number of children: 4 current occupational exposures/hazards: No caffeine: Yes Review of Systems Review of Systems Review of systems (narrative): 14 point review of systems performed, pertinent positives and negatives as per HPI Meds Home Medications and Allergies Home Medications Medication Instructions Recorded Confirmed Type aspirin 81 mg tablet,delayed 81 mg PO DAILY heart health 11/22/17 02/28/23 History release (Adult Low Dose Aspirin) ezetimibe 10 mg tablet 10 mg PO DAILY Cholesterol 90 days 11/22/17 02/28/23 History magnesium 250 mg tablet 500 mg PO DAILY Supplement 07/23/19 02/28/23 History escitalopram oxalate 20 mg tablet 20 mg PO DAILY anxiety/depression 06/17/20 02/28/23 History empagliflozin 10 mg tablet 10 mg PO DAILY Diabetes 03/29/21 02/28/23 History (Jardiance) insulin human U-100 NPH-regulr 30 unit SQ BID Diabetes 05/26/21 02/28/23 History 70-30 mix 100 unit/mL subcutaneous susp (Novolin 70/30 U-100 Insulin) furosemide 20 mg tablet 20 mg PO DAILY Edema 04/07/22 02/28/23 History ranolazine 1,000 mg 1,000 mg PO BI
--- NOTE | 2023-02-28 17:51 | PC.NURSE ---
A&OX4. TOLERATING RA WELL. UP INDEPENDENTLY TO BATHROOM. DOES HAVE CANE IN ROOM IF NEEDED. FAMILY AT BEDSIDE. PT STATES SHE HAS SLIGHT ACHING DOWN HER LEFT ARM. GIVEN NITRO PER MAR. NO OTHER C/O OR NEEDS NOTED THUS FAR. VSS.
[2023-02-28 18:45] LABS: Hemoglobin A1C 6.9 % (4.0-6.0)
[2023-02-28 20:00] VITALS: BP 115/53; PULSE 72; PULSE 74; RESP 18; TEMP 36.7; O2SAT 99
[2023-02-28 20:39] LABS: POC Glucose,Bedside 220 (70-110)
[2023-02-28 21:26] VITALS: BP 120/51; PULSE 74
[2023-02-28 22:13] LABS: Troponin I 0.06 ng/ml (0.00-0.034)
[2023-03-01] VITALS (17 sets, daily range): BP systolic 103–204; BP diastolic 52–87; PULSE 63–80; RESP 16–18; TEMP 36.6–36.9; O2SAT 93–100; BMI 34.2
[2023-03-01 06:33] LABS: POC Glucose,Bedside 146 (70-110)
[2023-03-01 06:37] LABS: Basophils % 0.5 % (0.1-2.0); Eosinophils # 0.1 K/mm3 (0.0-0.4); Eosinophils % 0.8 % (0.1-12.0); Hematocrit 42.1 % (37.0-47.0); Hemoglobin 13.3 g/dL (12.2-16.2); Lymphocytes % 50.7 % (10-50); Mean Corpuscular HGB Conc 31.6 g/dL (31.8-35.4); Mean Corpuscular Hemoglobin 29.5 pg (27.0-31.2); Mean Corpuscular Volume 93.3 fl (81-99); Monocytes # 0.5 K/mm3 (0.1-1.0); Monocytes % 8.5 % (1.7-9.3); Neutrophils # 2.3 K/mm3 (1.8-7.8); Neutrophils % 39.4 % (37.0-80.0); Platelet Count 244 K/mm3 (142-424); Red Blood Count 4.51 M/mm3 (4.20-5.40); White Blood Count 5.9 K/mm3 (4.8-10.8)
[2023-03-01 06:41] LABS: MANUAL DIFFERENTIAL MANUAL DIFFERENTIAL (MANUAL DIFF)
[2023-03-01 06:45] LABS: Alanine Aminotransferase 19 U/L (12-78); Albumin Level 3.7 g/dl (3.5-5.0); Albumin/Globulin Ratio 1.4 (1.1-1.8); Alkaline Phosphatase 71 U/L (38-126); Anion Gap 10.3 mEq/L (5-15); Aspartate Amino Transferase 26 U/L (14-36); Bilirubin,Total 0.3 mg/dl (0.2-1.3); Blood Urea Nitrogen 21 mg/dl (7-17); Calcium 9.1 mg/dl (8.4-10.2); Carbon Dioxide 30 mmol/L (22.0-30.0); Chloride 101 mmol/L (98-107); Creatinine Clearance Estimated 49 mL/min (50-200); Estimated Glomerular Filt Rate 34 ml/min (>60); GFR (African American) 41 ML/MIN (>60); Globulin 2.6 g/dL (1.3-3.2); Glucose 148 mg/dl (74-100); Magnesium 2.1 mg/dl (1.6-2.3); Potassium 4.3 mmoL/L (3.5-5.1); Sodium 137 mmol/L (136-145); Total Protein,Serum 6.3 g/dl (6.3-8.2)
--- NOTE | 2023-03-01 06:47 | PC.NURSE ---
npo after mn for heart cath, site prepped and consent in chart, pt cont to report throbbing pain in l arm.
--- NOTE | 2023-03-01 06:49 | PC.NURSE ---
nsr on monitor
--- NOTE | 2023-03-01 07:04 | IR_ITS ---
APPROVED REPORT Patient Location: Inpatient Hide Spreader: [place] Manley RT (R) PROCEDURES Left heart catheterization Left ventriculogram Selective coronary angiogram Selective engagement of the right internal mammary artery INDICATION Unstable angina, Coronary artery disease, Elevated troponin, History of coronary bypass surgery, Informed consent was obtained prior to the procedure. COMPLICATIONS NONE Estimated Blood Loss: LESS THAN 10 ML TECHNIQUE 1% lidocaine used anesthetize right groin the recorder is accessed via the Salinger technique and a 5 Azerbaijani sheath is placed in the right femoral artery. A JL 4 JR 4 catheter used for the procedure. 4000 units of heparin was administered intravenously with plans to place the wire into the right internal mammary artery so the graft could be directly cannulated. Angiography was performed of the right internal mammary artery. Following this the 5 Azerbaijani sheath was exchanged for a 6 Azerbaijani sheath and a CALDERÓN guide catheter was used to intubate the right coronary artery. A Choice PT extra-support wire was required in order to cannulate the right coronary artery which allowed insertion of the CALDERÓN catheter into the vessel as the stent was out into the right coronary cusp. Angiography demonstrated wide patency of the jamul right coronary artery therefore the apparatus was removed the groin was reprepped closure change sheath was removed and hemostasis was achieved using Perclose device patient was transferred to the postop holding in stable condition ANGIOGRAPHIC RESULTS The left main artery Normal The left anterior descending artery Is a small vessel however there is a stent in the proximal to mid segment which is widely patent free of in-stent restenosis with excellent proximal distal transitioning The circumflex artery Large and codominant with mild 10% luminal irregularities The right coronary artery Is codominant and wraps the apex and supplies a small portion of the anterior wall. There is a stent in the ostial segment which is widely patent free of in-stent restenosis with excellent distal transitioning. There are additional 20% stenoses throughout the mid right coronary artery. No evidence of competitive flow is identified from the right internal mammary artery The WANG ventriculogram reveals Normal 65% The left ventricular end-diastolic pressure 10 mmHg Right internal mammary artery is patent has a stent in the mid segment which is also patent. Scant flow is present down the right internal mammary artery IMPRESSION Adequate coronary revascularization as described above Normal ejection fraction Normal left ventricular end-diastolic pressure PLAN 1. Continue medical management 2. Maximize antianginal medication 3. Avoidance of tobacco product Electronically signed by : Glen Betts MD 03/01/2023 14:48:40
[2023-03-01 07:09] LABS: Eosinophils % 1 % (0-3); Lymphocytes % 52 % (10-50); Monocytes % 6 % (2-9); Neutrophils % 37 % (42-76); Total Cells Counted 100
[2023-03-01 07:10] LABS: Platelet Estimate Normal; RBC Morphology Normal
--- NOTE | 2023-03-01 09:09 | EXP.CARD.PN ---
Subjective Subjective Date: 03/01/23 Time: 09:09 Principal diagnosis: NSTEMI Interval history: 72-year-old white female in bed in no acute distress. Denies any chest pain overnight and notes some improvement with nitroglycerin paste. She does have some left arm discomfort this morning. Troponins overnight were stable at 0.06. Plan for left heart catheterization today. Exam Data for Last 24 hours Vital signs and Labs for Last 24 Hours: Temp Pulse Resp BP Pulse Ox O2 Del Method 98.0 F 69 16 123/63 94 L Room Air 03/01/23 07:26 03/01/23 07:26 03/01/23 07:26 03/01/23 07:26 03/01/23 07:26 03/01/23 07:26 Laboratory Results - last 24 hr 02/28/23 11:32: WBC 7.0, RBC 4.89, Hgb 14.6, Hct 46.1, MCV 94.3, MCH 29.9, MCHC 31.7 L, RDW 13.8, Plt Count 258, MPV 8.1, Neut % (Auto) 53.2, Lymph % (Auto) 40.4, [place] % (Auto) 4.8, Eos % (Auto) 0.6, Baso % (Auto) 1.0, Neut # (Auto) 3.7, Lymph # (Auto) 2.9, [place] # (Auto) 0.3, Eos # (Auto) 0.0, Baso # (Auto) 0.1, Sodium 136, Potassium 4.7, Chloride 99, Carbon Dioxide 27, Anion Gap 14.7, BUN 22 H, Creatinine 1.40 H, Estimated GFR 37 L, Est GFR ( Amer) 45 L, Glucose 121 H, Calcium 9.0, Total Bilirubin 0.5, AST 30, ALT 25, Alkaline Phosphatase 73, Troponin I 0.06 H, Total Protein 6.6, Albumin 4.0, Globulin 2.6, Albumin/Globulin Ratio 1.5 02/28/23 15:50: WBC 7.1, RBC 4.65, Hgb 14.1, Hct 43.9, MCV 94.5, MCH 30.4, MCHC 32.1, RDW 13.9, Plt Count 135 L D, MPV 9.5, Neut % (Auto) 49.5, Lymph % (Auto) 40.9, [place] % (Auto) 7.7, Eos % (Auto) 0.9, Baso % (Auto) 1.0, Neut # (Auto) 3.5, Lymph # (Auto) 2.9, [place] # (Auto) 0.5, Eos # (Auto) 0.1, Baso # (Auto) 0.1, Sodium 133 L, Potassium 5.5 H, Chloride 96 L, Carbon Dioxide 29, Anion Gap 13.5, BUN 22 H, Creatinine 1.40 H, Estimated Creat Clear 52, Estimated GFR 37 L, Est GFR ( Amer) 45 L, Glucose 150 H D, Hemoglobin A1c 6.9 H, Calcium 8.6, Total Bilirubin 1.0, Direct Bilirubin 0.9 H, Conjugated Bilirubin 0.0, Indirect Bilirubin 0.1, Unconjugated Bilirubin 0.1, AST 56 H D, ALT 26, Alkaline Phosphatase 43, Troponin I 0.07 H, NT-Pro-B Natriuret Pep 621 H, Total Protein 7.4, Albumin 4.2, Triglycerides 221 H, Cholesterol 153, LDL Cholesterol Direct 62.09 L, VLDL Cholesterol 44 H, HDL Cholesterol 58, Cholesterol/HDL Ratio 2.6 02/28/23 20:32: POC Glucose 220 H 02/28/23 21:20: Troponin I 0.06 H 03/01/23 05:49: POC Glucose 146 H 03/01/23 05:52: WBC 5.9, RBC 4.51, Hgb 13.3, Hct 42.1, MCV 93.3, MCH 29.5, MCHC 31.6 L, RDW 14.0, Plt Count 244 D, MPV 8.0, Neut % (Auto) 39.4, Lymph % (Auto) 50.7 H, [place] % (Auto) 8.5, Eos % (Auto) 0.8, Baso % (Auto) 0.5, Neut # (Auto) 2.3, Lymph # (Auto) 3.0, [place] # (Auto) 0.5, Eos # (Auto) 0.1, Baso # (Auto) 0.0, Total Counted 100, Neutrophils % (Manual) 37 L, Band Neutrophils % 1.0, Lymphocytes % (Manual) 52 H, Atypical Lymphs % 3.0, Monocytes % (Manual) 6, Eosinophils % (Manual) 1, Platelet Estimate Normal, RBC Morphology Normal, Sodium 137, Potassium 4.3 D, Chloride 101, Carbon Dioxide 30, Anion Gap 10.3, BUN 21 H, Creatinine 1.50 H, Estimated Creat Clear 49, Estimated GFR 34 L, Est GFR ( Amer) 41 L, Glucose 148 H, Calcium 9.1, Magnesium 2.1, Total Bilirubin 0.3, AST 26 D, ALT 19 D, Alkaline Phosphatase 71, Total Protein 6.3, Albumin 3.7 D, Globulin 2.6, Albumin/Globulin Ratio 1.4 I & O for Last 24 hours: Intake & Output 02/26/23 02/27/23 02/28/23 03/01/23 11:59 11:59 11:59 11:59 Intake Total 470 / 470 Output Total 0 / 0 Balance 470 / 470 Weight 200 lb 4 oz *Routine Respiratory Exam Respiratory: Present CTA bilaterally *Routine Cardiovascular Exam Cardiovascular: Present RRR *Routine Neurological Exam Neurological: Present alert and oriented X3 Progress Note: A&P Assessment and plan (1) NSTEMI (non-ST elevated myocardial infarction): Status: Acute (2) Angina pectoris: Status: Acute (3) CAD (coronary artery disease): Status: Chronic (4) Hypertension: Status: Chronic (5) HLD (hyperl
[2023-03-01 11:47] LABS: POC Glucose,Bedside 147 (70-110)
[2023-03-01 15:05] LABS: CATHL Activated Clotting Time 218 SEC (74-125)
--- NOTE | 2023-03-01 17:07 | EXP.DC.SUM ---
General Admission date:: 02/28/23 Discharge date: 03/01/23 HPI HPI HPI: Ms. Morales is a pleasant 72-year-old female with history of CAD, CABG, diabetes, hypertension. She presented to cardiology clinic today at the request of her PCP because of 4 days of intermittent chest pain that began on Monday. Initially had some radiation to her back and left arm. Troponin drawn in clinic today that was noted to be mildly elevated. Sent to cardiology clinic for further evaluation. EKG was sinus with no acute ST segment changes. Cardiology consulted medicine for direct admission for monitoring overnight, stabilization with medical management, and planned heart cath tomorrow morning. After arriving to the floor, patient is currently chest pain-free. On room air. Denies any shortness of breath. Does complain of having had some shortness of breath with exertion over the weekend. Denies any nausea, vomiting, confusion, palpitations. Hospital Course Hospital Course Hospital Course: 72-year-old female with known history of CAD. Presents with angina at rest. Seen in cardiology clinic today for elevated troponin. Cardiology requested direct admission for monitoring overnight given NSTEMI and unstable angina. Taken for left heart cath. Stable chronic disease. Did not require any stenting. Patient has remained stable. Continue medical management. Plan for discharge home with close follow-up. Problems addressed during hospitalization as follows: CAD Unstable angina NSTEMI History of CABG -Elevated troponin in the outpatient setting; EKG in cardiology clinic reportedly with no ST changes. Was admitted for observation and serial troponins. Serial troponins stable with initial 0.06, second 0.07, and third 0.06. Echocardiogram was obtained, formal read still pending at discharge. Preliminary showed preserved ejection fraction. Cardiology was consulted and patient was taken for left heart cath. Stable chronic disease, see cath report for full details. No stents were deployed. Patient stable for discharge home. Continue medical management with dual antiplatelet therapy fluting aspirin and Plavix, risk for an, bisoprolol 2 g daily, Jardiance grams daily, and Zetia for cholesterol. Sent with nitroglycerin precautionary link if she has further episodes of chest discomfort. HTN HLD - Continue home medications bisoprolol 10 mg daily, Jardiance 10 mg daily, Lasix grams daily the, ezetimibe grams daily, ranolazine 1000 mg twice daily. Intolerant of statins; on Evolocumab injections Diabetes: A1c 6.9. Continue sliding scale insulin with FSGS ACHS during hospitalization. Transition back to home regimen at discharge. CKD: Caution with nephrotoxins. Creatinine at baseline of 1.4. No change during admission. Anxiety: continue home lexapro 20mg daily Spent 40 minutes in discharge counseling, documentation, chart review, discussion with consultants, and direct care with patient. Exam Data for Last 24 hours Vital signs and Labs for Last 24 Hours: Temp Pulse Resp BP Pulse Ox O2 Del Method 98.0 F 64 18 139/60 96 Room Air 03/01/23 11:07 03/01/23 16:05 03/01/23 16:05 03/01/23 16:05 03/01/23 16:05 03/01/23 16:26 Laboratory Results - last 24 hr 02/28/23 15:50: Hemoglobin A1c 6.9 H 02/28/23 20:32: POC Glucose 220 H 02/28/23 21:20: Troponin I 0.06 H 03/01/23 05:49: POC Glucose 146 H 03/01/23 05:52: WBC 5.9, RBC 4.51, Hgb 13.3, Hct 42.1, MCV 93.3, MCH 29.5, MCHC 31.6 L, RDW 14.0, Plt Count 244 D, MPV 8.0, Neut % (Auto) 39.4, Lymph % (Auto) 50.7 H, [place] % (Auto) 8.5, Eos % (Auto) 0.8, Baso % (Auto) 0.5, Neut # (Auto) 2.3, Lymph # (Auto) 3.0, [place] # (Auto) 0.5, Eos # (Auto) 0.1, Baso # (Auto) 0.0, Total Counted 100, Neutrophils % (Manual) 37 L, Band Neutrophils % 1.0, Lymphocytes % (Manual) 52 H, Atypical Lymphs % 3.0, Monocytes % (Manual) 6, Eosinophils % (Manual) 1, Platelet Estimate Normal, RBC Morphology Normal, Sodium 137, Potassium 4.3
[2023-03-01 18:52] LABS: POC Glucose,Bedside 121 (70-110)
--- NOTE | 2023-03-02 13:23 | CARE MANAGER ---
Contacted patient related to hospital discharge. She states that she hasn't had any chest pain today and has felt ok. She has her new medication. Transferred her to cardiology because she had 2 appointments scheduled. LINDA Booth
== END 2023-03-01 18:51 | disposition home or self-care (01) ==
LOC: 2ND 15:09
PROVIDERS: Internal Medicine; Physician Assistant; Admitting Provider Internal Medicine Adolescent Medicine; PCP Nurse Practitioner Family; Visit Provider Internal Medicine Adolescent Medicine
DX: R07.89 Other chest pain (principal); I21.4 Non-ST elevation (NSTEMI) myocardial infarction; I25.110 Atherosclerotic heart disease of native coronary artery with unstable angina pectoris; E78.2 Mixed hyperlipidemia; N18.30 Chronic kidney disease, stage 3 unspecified; E11.69 Type 2 diabetes mellitus with other specified complication; Z95.1 Presence of aortocoronary bypass graft; G47.33 Obstructive sleep apnea (adult) (pediatric); K21.9 Gastro-esophageal reflux disease without esophagitis; Z79.899 Other long term (current) drug therapy; Z79.4 Long term (current) use of insulin; I12.9 Hypertensive chronic kidney disease with stage 1 through stage 4 chronic kidney disease, or unspecified chronic kidney disease; Z79.01 Long term (current) use of anticoagulants; E11.22 Type 2 diabetes mellitus with diabetic chronic kidney disease
CPT/HCPCS: 36415; 80048; 80053; 80061; 80076; 82962; 83036; 83735; 83880; 84484; 85007; 85025; 85347; 93306; 93459; 99152; 99153; C1725; C1760; C1769; C1894; G0378; J1644; Q9967

== ENCOUNTER → 2023-04-24 11:39 | Outpatient (CLI) | payer MEDICARE, SELFPAY ==
--- NOTE | 2023-04-24 11:44 | XR_ITS ---
FINAL REPORT CLINICAL HISTORY: fall, injury, left rib pain COMPARISON: 11/18/2022 chest x-ray FINDINGS: LEFT RIBS: Multiple views of the left ribs failed to reveal any evidence of acute bony abnormality. No evidence of pneumothorax is seen. There is a linear scar present in the right lung base, stable. There is a single upper sternotomy wire in place. IMPRESSION: No acute bony abnormality identified. Reviewed, Interpreted and Dictated by Wiley Jacobo MD Transcribed by Mayda Park Authenticated and . [facility]
== END ==
LOC: RAD 11:41
PROVIDERS: PCP Nurse Practitioner Family; Visit Provider Nurse Practitioner Family
DX: R07.81 Pleurodynia (principal); W19.XXXA Unspecified fall, initial encounter
CPT/HCPCS: 71101

== ENCOUNTER → 2023-05-18 14:01 | Outpatient (CLI) | payer MEDICARE, SELFPAY | PROVIDERS: PCP Nurse Practitioner Family; Visit Provider Nurse Practitioner Family | DX: R30.0 Dysuria (principal); N18.30 Chronic kidney disease, stage 3 unspecified; N39.0 Urinary tract infection, site not specified; B96.1 Klebsiella pneumoniae [K. pneumoniae] as the cause of diseases classified elsewhere | CPT/HCPCS: 84155; 87086 ==

== ENCOUNTER → 2023-05-22 08:58 | Outpatient (CLI) | payer MEDICARE, SELFPAY ==
[2023-05-22 09:30] LABS: Basophils % 0.6 % (0.1-2.0); Eosinophils # 0.1 K/mm3 (0.0-0.4); Eosinophils % 1.2 % (0.1-12.0); Hematocrit 43.5 % (37.0-47.0); Hemoglobin 14.3 g/dL (12.2-16.2); Lymphocytes # 2.3 K/mm3 (0.7-4.5); Lymphocytes % 38.1 % (10-50); Mean Corpuscular HGB Conc 32.8 g/dL (31.8-35.4); Mean Corpuscular Hemoglobin 31.3 pg (27.0-31.2); Mean Corpuscular Volume 95.3 fl (81-99); Mean Platelet Volume 8.1 fl (7.4-10.4); Monocytes # 0.4 K/mm3 (0.1-1.0); Monocytes % 6.3 % (1.7-9.3); Neutrophils # 3.2 K/mm3 (1.8-7.8); Neutrophils % 53.6 % (37.0-80.0); Platelet Count 287 K/mm3 (142-424); Red Blood Count 4.57 M/mm3 (4.20-5.40); Red Cell Distribution Width 13.6 % (11.5-17.5); White Blood Count 5.9 K/mm3 (4.8-10.8)
[2023-05-22 09:42] LABS: Chloride 100 mmol/L (98-107); Sodium 135 mmol/L (136-145)
[2023-05-22 09:43] LABS: Potassium 5.2 mmoL/L (3.5-5.1)
[2023-05-22 09:45] LABS: Alanine Aminotransferase 23 U/L (12-78); Albumin Level 4.7 g/dl (3.5-5.0); Albumin/Globulin Ratio 1.8 (1.1-1.8); Alkaline Phosphatase 66 U/L (38-126); Anion Gap 12.2 mEq/L (5-15); Aspartate Amino Transferase 34 U/L (14-36); Bilirubin,Total 0.6 mg/dl (0.2-1.3); Blood Urea Nitrogen 18 mg/dl (7-17); Carbon Dioxide 28 mmol/L (22.0-30.0); Estimated Glomerular Filt Rate 49 ml/min (>60); GFR (African American) 59 ML/MIN (>60); Globulin 2.6 g/dL (1.3-3.2); Total Protein,Serum 7.3 g/dl (6.3-8.2)
[2023-05-22 09:46] LABS: Calcium 9.2 mg/dl (8.4-10.2); Chol/HDL Ratio 1.7 (1-3.5); Cholesterol 151 mg/dl (140-200); Glucose 142 mg/dl (74-100); HDL Cholesterol 89 mg/dl (40-60); Triglycerides 127 mg/dl (30-150); VLDL Cholesterol 25 mg/dL (0-40)
[2023-05-22 09:57] LABS: Direct LDL Cholesterol 53.07 mg/dL (100-129)
[2023-05-22 10:03] LABS: Free T4 (Free Thyroxine) 0.92 ng/dl (0.78-2.19)
[2023-05-22 10:16] LABS: Thyroid Stimulating Hormone 3.16 uIU/mL (0.465-4.68)
[2023-05-22 14:30] LABS: Hemoglobin A1C 6.4 % (4.0-6.0)
== END ==
PROVIDERS: PCP Nurse Practitioner Family; Visit Provider Nurse Practitioner Family
DX: E78.2 Mixed hyperlipidemia (principal); N18.30 Chronic kidney disease, stage 3 unspecified; E11.9 Type 2 diabetes mellitus without complications; E78.5 Hyperlipidemia, unspecified; Z79.4 Long term (current) use of insulin
CPT/HCPCS: 36415; 80053; 80061; 82306; 83036; 84439; 84443; 85025

== ENCOUNTER 2023-06-25 10:46 | Emergency (ER) | payer MEDICARE, SELFPAY ==
[2023-06-25 11:10] VITALS: BP 122/56; PULSE 75; RESP 18; TEMP 36.9; O2SAT 97; BMI 35.2
--- NOTE | 2023-06-25 11:16 | EXP.UTC ---
Discharge Plan Disposition Patient Disposition: Home, Self-Care Condition: Good Prescriptions Prescriptions: New benzonatate [benzonatate] 100 mg capsule 100 mg PO TIDP PRN (Reason: Cough) Qty: 30 0RF azithromycin [Zithromax] 250 mg tablet 250 mg PO UD DOSE PK Qty: 6 0RF Rx Instructions: Take two (2) tablets today, then one (1) tablet days #2 thru #5 prednisone [prednisone] 20 mg tablet 20 mg PO BID 3 Days Qty: 6 0RF No Action ezetimibe 10 mg tablet 10 mg PO DAILY 90 Days Jardiance 10 mg tablet 10 mg PO DAILY isosorbide mononitrate 60 mg tablet extended release 24 hr 60 mg PO DAILY Qty: 90 3RF aspirin [Adult Aspirin Regimen] 81 mg tablet,delayed release (DR/EC) 81 mg PO .every other day Qty: 30 2RF nitroglycerin 0.4 mg tablet, sublingual 0.4 mg sublingual Q5-15M Patient Comments: DISSOLVE ONE TABLET UNDER THE TONGUE EVERY 5 MINUTES NEEDED FOR CHEST PAIN. DO NOT EXCEED A TOTAL OF 3 DOSES IN 15 MINUTES Maximum D3 325 mcg (13,000 unit) capsule 13,000 unit PO WEEKLY Patient Comments: TAKE 1 CAPSULE BY MOUTH ONCE A WEEK dicyclomine 10 mg capsule 10 mg PO BID Fluzone HighDose Quad 23-24 PF 240 mcg/0.7 mL syringe IM clopidogrel 75 mg tablet 75 mg PO DAILY Qty: 90 1RF ranolazine 1,000 mg tablet extended release 12 hr See Rx Instructions .ROUTE .COMPLEX Qty: 180 4RF Dose Instruction: TAKE 1 BY MOUTH TWICE DAILY FOR ANGINA Rx Instructions: TAKE 1 BY MOUTH TWICE DAILY FOR ANGINA furosemide 20 mg tablet 20 mg PO DAILY Qty: 90 3RF Novolin 70/30 U-100 Insulin 100 unit/mL (70-30) suspension 30 unit SQ BID Qty: 60 3RF Rx Instructions: Inject 38 units subcutaneously in the morning and 30 units at night. pantoprazole 40 mg tablet,delayed release (DR/EC) 40 mg PO DAILY Qty: 90 1RF Repatha SureClick 140 mg/mL pen injector See Rx Instructions .ROUTE .COMPLEX Qty: 2 3RF Dose Instruction: INJECT 1 AUTO INJECTOR SUBCUTANEOUSLY EVERY TWO WEEKS Rx Instructions: INJECT 1 AUTO INJECTOR SUBCUTANEOUSLY EVERY TWO WEEKS (DME) FreeStyle Mounika 14 Day Sensor Kit See Rx Instructions .Route Qty: 1 0RF Rx Instructions: As directed escitalopram oxalate 20 MG tablet 20 mg PO DAILY bisoprolol fumarate 10 mg tablet 10 mg PO DAILY Patient Comments: TAKE 1 TABLET BY MOUTH ONCE DAILY Savella 50 mg Tablet 50 mg PO BID magnesium oxide 400 mg magnesium Tablet 400 mg PO DAILY Referrals Follow up/Referrals: Maribel Ambriz APRN [Primary Care Provider] - See instructions Activity Restrictions/Add. Instructions Additional Instructions/Restrictions: Drink plenty of fluids. Take tylenol or ibuprofen for pain or fever. Take the medications as directed. Follow up with your regular doctor. GO TO THE ER FOR ANY WORSENING SYMPTOMS Clinical Impressions Clinical Impression: Sinusitis, Pharyngitis Instructions Patient Instructions: DI for Pharyngitis/Tonsillopharyngitis -- Adult, DI for Sinusitis Discharge ED Provider: Jose F Brown [facility] [place] HPI General Stated complaint: ear ache [facility] Time Seen by Provider: 06/25/23 11:16 History of Present Illness Provider Complaint: She states that for the past 3 days she has had sore throat, sinus congestion, bilateral ear pain, and malaise. She had covid-19 about 10 days ago, but she states that she got better from that and then her current symptoms started. She denies chest congestion and shortness of breath. Related Data Home Medications Medication Instructions Recorded Confirmed ezetimibe 10 mg tablet 10 mg PO DAILY Cholesterol 90 days 11/22/17 06/15/23 escitalopram oxalate 20 mg tablet 20 mg PO DAILY anxiety/depression 06/17/20 06/15/23 empagliflozin 10 mg tablet 10 mg PO DAILY Diabetes 03/29/21 06/15/23 (Jardiance) bisoprolol fumarate 10 mg tablet 10 mg PO DAILY High Blood Pressure 02/28/23 06/15/23 milnacipran 50 mg tablet (Savella) 50 mg PO BID 02/28/23 06/15/23 depression/fibromyalgia magnesium oxide 400 mg PO DAILY Supplement 03/01/23 06/15/23 cholecalciferol (vitamin D3) 325 13,000 unit PO WEEKLY 03/09/23 06/15/23 mcg (13,000 unit) capsule (Maximum D3) nitroglycerin 0.4 mg sublingual 0.4 mg sublingual Q5-15M 03/09/23 06/15/23 tablet dicyclomine 10 mg capsule 10 mg PO BID 03/21/23 06/15/23 flu vacc [id number](65yr up)-PF 240 ml IM 05/18/23 06/15/23 mcg/0.7 mL intramuscular syringe (Fluzone High-Dose Quad (PF)) Previous Rx's Medication Instructions Recorded clopidogrel 75 mg tablet 75 mg PO DAILY Blood thinner #90 12/21/22 tabs ranolazine 1,000 mg See Rx Instructions .Route 03/15/23 tablet,extended release,12 hr .COMPLEX #180 tabs furosemide 20 mg tablet 20 mg PO DAILY Edema #90 tabs 04/12/23 aspirin 81 mg tablet,delayed 81 mg PO .every other day #30 tabs 04/24/23 release (Adult Aspirin Regimen) isosorbide mononitrate 60 mg 60 mg PO DAILY #90 tabs 04/24/23 tablet,extended release 24 hr insulin human U-100 NPH-regulr 30 unit (0.3 mL) SQ BID Diabetes 04/27/23 70-30 mix 100 unit/mL subcutaneous #60 mL susp (Novolin 70/30 U-100 Insulin) pantoprazole 40 mg tablet,delayed 40 mg PO DAILY #90 tabs 04/27/23 release evolocumab 140 mg/mL subcutaneous See Rx Instructions .Route 05/08/23 pen injector (Repatha SureClick) .COMPLEX #2 mL flash glucose sensor (FreeStyle #1 ea 05/09/23 Mounika 14 Day Sensor kit) azithromycin 250 mg tablet 250 mg PO UD DOSE PK #6 tabs 06/25/23 (Zithromax) benzonatate 100 mg capsule 100 mg PO TIDP PRN Cough #30 caps 06/25/23 prednisone 20 mg tablet 20 mg PO BID 3 days #6 tabs 06/25/23 Allergies Allergy/AdvReac Type Severity Reaction Status Date / Time Yapryke-RLU-NwK Reductase Allergy Severe Unknown Verified 06/25/23 11:28 Inhibitor allergy [Srsotzt-Iop-Xeo Reductase reaction Inhibitor] Penicillins Allergy Intermediate I-RASH Verified 06/25/23 11:28 losartan Allergy Mild Verified 06/25/23 11:28 cefuroxime [From Ceftin] Allergy Unknown Verified 06/25/23 11:28 allergy reaction PFSH PFS Disclaimer: The information contained in this section may have been updated after the patient was seen, as this information can be updated by other users. Medical History (Updated 06/25/23 @ 11:38 by Jose F Brown APRN) Abdominal pain Abnormal cardiovascular stress test Acute effusion of both middle ears Angina pectoris Atypical angina Breast CA Breast cancer in female Chest pain Chest pain Constipation, unspecified Contusion of elbow, left Contusion of knee, left Contusion of left upper arm Daytime somnolence Dehydration, mild Diastolic dysfunction Discharge from left nipple Dizziness Dyspnea Edema Edema of both lower extremities Extrapyramidal disorder Fall Fatigue Frequent falls Gallstones H/O malignant neoplasm of breast Head injury Kidney failure Labile blood pressure Left breast mass Restless sleeper Rib pain on left side Right otitis media Right upper quadrant pain Sinusitis Skin tear of left hand without complication Syncope Typical angina Typical angina Surgical History H/O thumb surgery H/O tubal ligation History of breast biopsy History of colonoscopy History of coronary artery bypass graft x 1 History of esophagogastroduodenoscopy (EGD) Stented coronary artery Family History Mother Congestive heart failure Crohn's disease Father Hypertension Cancer lung Sister Diabetes Coronary artery disease Sister Cancer breast Diabetes Brother Coronary artery disease Other No significant family history Social History Smoking Status: Never smoker second hand exposure: No alcohol intake: current counseling provided: none substance use type: denies use current occupational status: retired Travel in the last 8 weeks: None household members: spouse housing: house marital status: number of children: 4 current occupational exposures/hazards: No caffeine: Yes ROS Obtained: Yes All systems reviewed & no additional complaints except as documented Constitutional Constitutional: Reports chills and Denies fever(s) Eyes Eyes: Denies eye discharge ENT Ears, Nose, Mouth, and Throat: Reports as per HPI Cardiovascular Cardiovascular: Denies chest pain Respiratory Respiratory: Denies chest congestion and Reports cough Gastrointestinal Gastrointestingal: Reports nausea; Denies abdominal pain, constipation, cramping, diarrhea or vomiting Musculoskeletal Musculoskeletal: Denies arthralgias Integumentary/Breasts Skin/Breast: Denies rash Neurologic Neurologic: Denies paresthesias Physical Exam General General appearance: alert and in no apparent distress Eye Eye exam: Present normal appearance, PERRL and EOMI ENT ENT exam: Present mucous membranes moist and normal external ear exam Expanded ENT Exam External ear exam: Present normal external inspection TM/Canal exam: Bilateral TM: erythema and bulging Nose exam: Absent sinus tenderness Nasal speculum exam: Bilateral: normal Mouth exam: Present normal external inspection; Absent drooling Teeth exam: Present normal inspection Throat exam: Present tonsillar erythema and tonsillomegaly Neck Neck exam: Present normal inspection, full ROM and trachea midline; Absent tenderness, lymphadenopathy or thyromegaly Chest Chest inspection: Present normal inspection and symmetric chest wall rise; Absent tenderness or rash Respiratory Respiratory exam: Present normal lung sounds bilaterally; Absent respiratory distress, wheezes, stridor or accessory muscle use Cardiovascular Cardiovascular exam: Present regular rate, normal rhythm and normal heart sounds Abdominal Exam Abdominal exam: Present soft; Absent distention, tenderness, guarding, rebound or rigidity Extremities Exam Extremities exam: Present normal inspection, full ROM and normal capillary refill; Absent tenderness or calf tenderness Back Exam Back exam: Present normal inspection and full ROM; Absent tenderness Neurological Exam Neurological exam: Present alert and oriented X3 Psychiatric Psychiatric exam: Present normal affect and normal mood Skin Skin exam: Present warm, dry, intact and normal color Lymphatic Lymphatic Findings: no adenopathy Medical Decision Making Medical Records Medical records reviewed: No I reviewed the patient's medical records. Mitch Inquiry Pt receiving controlled substance: No Lab Data Lab results reviewed: Yes I reviewed the patient's lab results.
[2023-06-25 11:26] LABS: UTC Strep Screen (Rapid) Negative (Negative)
[2023-06-25 11:44] VITALS: BP 122/56; PULSE 75; RESP 18; TEMP 36.9; O2SAT 97
== END 2023-06-25 11:44 | disposition home or self-care (01) ==
PROVIDERS: Emergency Provider Nurse Practitioner Family; PCP Nurse Practitioner Family
DX: J01.90 Acute sinusitis, unspecified (principal); J02.9 Acute pharyngitis, unspecified; R51.9 Headache, unspecified; H92.03 Otalgia, bilateral; R09.81 Nasal congestion; I20.9 Angina pectoris, unspecified; I10 Essential (primary) hypertension; E11.9 Type 2 diabetes mellitus without complications; Z79.84 Long term (current) use of oral hypoglycemic drugs; Z95.1 Presence of aortocoronary bypass graft
CPT/HCPCS: 87880; 99212; 99214; G0463

== ENCOUNTER 2023-08-07 09:57 | Outpatient (CLI) | payer MEDICARE, SELFPAY ==
[2023-08-07 10:51] LABS: Basophils % 0.6 % (0.1-2.0); Eosinophils % 0.6 % (0.1-12.0); Hematocrit 42.2 % (37.0-47.0); Hemoglobin 13.4 g/dL (12.2-16.2); Lymphocytes % 41.1 % (10-50); Mean Corpuscular HGB Conc 31.8 g/dL (31.8-35.4); Mean Corpuscular Hemoglobin 30.5 pg (27.0-31.2); Mean Corpuscular Volume 95.9 fl (81-99); Mean Platelet Volume 8.2 fl (7.4-10.4); Monocytes # 0.3 K/mm3 (0.1-1.0); Neutrophils # 2.5 K/mm3 (1.8-7.8); Neutrophils % 51.7 % (37.0-80.0); Platelet Count 258 K/mm3 (142-424); Red Cell Distribution Width 14.2 % (11.5-17.5); White Blood Count 4.8 K/mm3 (4.8-10.8)
[2023-08-07 11:22] LABS: Anion Gap 11.8 mEq/L (5-15); Blood Urea Nitrogen 21 mg/dl (7-17); Calcium 8.9 mg/dl (8.4-10.2); Carbon Dioxide 26 mmol/L (22.0-30.0); Chloride 101 mmol/L (98-107); Estimated Glomerular Filt Rate 44 ml/min (>60); GFR (African American) 53 ML/MIN (>60); Glucose 159 mg/dl (74-100); Phosphorous 4.7 mg/dl (2.5-4.5); Potassium 4.8 mmoL/L (3.5-5.1); Sodium 134 mmol/L (136-145)
[2023-08-07 11:26] LABS: Alanine Aminotransferase 24 U/L (12-78); Albumin Level 4.1 g/dl (3.5-5.0); Albumin/Globulin Ratio 1.8 (1.1-1.8); Alkaline Phosphatase 63 U/L (38-126); Anion Gap 15.3 mEq/L (5-15); Aspartate Amino Transferase 30 U/L (14-36); Bilirubin,Total 0.4 mg/dl (0.2-1.3); Blood Urea Nitrogen 20 mg/dl (7-17); Calcium 8.9 mg/dl (8.4-10.2); Carbon Dioxide 25 mmol/L (22.0-30.0); Chloride 100 mmol/L (98-107); Chol/HDL Ratio 2.4 (1-3.5); Cholesterol 163 mg/dl (140-200); Estimated Glomerular Filt Rate 49 ml/min (>60); GFR (African American) 59 ML/MIN (>60); Globulin 2.3 g/dL (1.3-3.2); Glucose 145 mg/dl (74-100); HDL Cholesterol 67 mg/dl (40-60); Potassium 4.3 mmoL/L (3.5-5.1); Sodium 136 mmol/L (136-145); Total Protein,Serum 6.4 g/dl (6.3-8.2); Triglycerides 194 mg/dl (30-150); VLDL Cholesterol 39 mg/dL (0-40)
[2023-08-07 11:34] LABS: Intact Parathyroid Hormone 150.9 pg/mL (7.5-53.5)
[2023-08-07 11:37] LABS: Direct LDL Cholesterol 62.21 mg/dL (100-129)
[2023-08-07 11:39] LABS: 25-OH Vitamin D, Total 40.6 ng/mL (30-100)
[2023-08-07 11:57] LABS: Creatinine,Urine Random 14 mg/dL (Not Estab.); Microalbumin < 6.000 mg/L (0-16.7)
[2023-08-07 11:58] LABS: Hemoglobin A1C 7.4 % (4.0-6.0)
== END 2023-08-07 23:59 ==
LOC: LAB 09:58
PROVIDERS: PCP Nurse Practitioner Family; Visit Provider Internal Medicine Nephrology
DX: E11.9 Type 2 diabetes mellitus without complications; E78.5 Hyperlipidemia, unspecified; E21.3 Hyperparathyroidism, unspecified; I10 Essential (primary) hypertension; Z79.4 Long term (current) use of insulin; N18.32 Chronic kidney disease, stage 3b
CPT/HCPCS: 36415; 80053; 80061; 80069; 82043; 82306; 82570; 83036; 83970; 85025

== ENCOUNTER 2023-08-14 08:47 | Outpatient (POV) | payer MEDICARE, SELFPAY | END 2023-08-14 23:59 | disposition home or self-care (01) | LOC: SC 08:48 | PROVIDERS: Visit Provider Nurse Practitioner | DX: Z00.00 Encounter for general adult medical examination without abnormal findings (principal) ==

== ENCOUNTER 2023-09-11 19:27 | Outpatient (CLI) | payer MEDICARE, SELFPAY | END 2023-09-11 23:59 | LOC: LAB.DROPOF 19:27 | PROVIDERS: PCP Student in an Organized Health Care Education/Training Program; Visit Provider Student in an Organized Health Care Education/Training Program | DX: J02.9 Acute pharyngitis, unspecified (principal); R09.81 Nasal congestion; R51.9 Headache, unspecified | CPT/HCPCS: 87070; 87635 ==

== ENCOUNTER 2023-09-14 10:32 | Outpatient (CLI) | payer MEDICARE, SELFPAY ==
[2023-09-14 10:36] LABS: Microscopic, Urine URINE MICROSCOPIC (MICROSCOPIC)
[2023-09-14 11:01] LABS: Basophils # 0.1 K/mm3 (0-0.2); Basophils % 0.8 % (0.1-2.0); Eosinophils # 0.1 K/mm3 (0.0-0.4); Eosinophils % 0.9 % (0.1-12.0); Hematocrit 44.4 % (37.0-47.0); Hemoglobin 14.3 g/dL (12.2-16.2); Lymphocytes # 2.4 K/mm3 (0.7-4.5); Lymphocytes % 37.1 % (10-50); Mean Corpuscular HGB Conc 32.2 g/dL (31.8-35.4); Mean Corpuscular Hemoglobin 30.7 pg (27.0-31.2); Mean Corpuscular Volume 95.3 fl (81-99); Mean Platelet Volume 6.8 fl (7.4-10.4); Monocytes # 0.4 K/mm3 (0.1-1.0); Monocytes % 6.7 % (1.7-9.3); Neutrophils # 3.5 K/mm3 (1.8-7.8); Neutrophils % 54.5 % (37.0-80.0); Platelet Count 281 K/mm3 (142-424); Red Blood Count 4.66 M/mm3 (4.20-5.40); Red Cell Distribution Width 13.8 % (11.5-17.5); White Blood Count 6.4 K/mm3 (4.8-10.8)
[2023-09-14 11:25] LABS: Alanine Aminotransferase 30 U/L (12-78); Albumin Level 4.2 g/dl (3.5-5.0); Albumin/Globulin Ratio 1.8 (1.1-1.8); Alkaline Phosphatase 56 U/L (38-126); Amylase 53 U/L (30-110); Anion Gap 12.2 mEq/L (5-15); Aspartate Amino Transferase 33 U/L (14-36); Bilirubin,Total 0.6 mg/dl (0.2-1.3); Blood Urea Nitrogen 16 mg/dl (7-17); Calcium 9.7 mg/dl (8.4-10.2); Carbon Dioxide 28 mmol/L (22.0-30.0); Chloride 99 mmol/L (98-107); Estimated Glomerular Filt Rate 37 ml/min (>60); GFR (African American) 45 ML/MIN (>60); Globulin 2.4 g/dL (1.3-3.2); Glucose 71 mg/dl (74-100); Lipase 158 U/L (23-300); Potassium 4.2 mmoL/L (3.5-5.1); Sodium 135 mmol/L (136-145); Total Protein,Serum 6.6 g/dl (6.3-8.2)
[2023-09-14 11:27] LABS: Appearance,Urine CLEAR (Clear); Bilirubin,Urine Negative (Negative); Blood, Urine Negative (Negative); Color,Urine YELLOW (Yellow); Glucose,Urine (UA) 3+ (Negative); Ketones,Urine Negative (Negative); Leukocyte Esterase,Urine Negative (Negative); Nitrate,Urine Negative (Negative); Protein,Urine Negative (Negative); Urobilinogen,Urine 0.2 EU/dl (0.2)
[2023-09-14 12:24] LABS: Bacteria,Urine Trace /lpf
[2023-09-14 12:50] LABS: Hemoglobin A1C 6.8 % (4.0-6.0)
== END 2023-09-14 23:59 ==
LOC: LAB 10:32
PROVIDERS: PCP Nurse Practitioner Family; Visit Provider Student in an Organized Health Care Education/Training Program
DX: R10.11 Right upper quadrant pain (principal); R10.9 Unspecified abdominal pain; E11.69 Type 2 diabetes mellitus with other specified complication; N18.30 Chronic kidney disease, stage 3 unspecified; I10 Essential (primary) hypertension; Z79.4 Long term (current) use of insulin
CPT/HCPCS: 36415; 80053; 81001; 82150; 83036; 83690; 85025

== ENCOUNTER 2023-09-20 07:21 | Outpatient (CLI) | payer MEDICARE, SELFPAY ==
--- NOTE | 2023-09-20 07:22 | US_ITS ---
FINAL REPORT CLINICAL HISTORY: RUQ pain FINDINGS: RIGHT UPPER QUADRANT ULTRASOUND Sonographic images of the right upper quadrant were obtained. The pancreas is normal. There is mild fatty infiltration of the liver. The gallbladder appears normal without evidence of gallstones.The common duct measures 6 mm which is normal for age. There is a 1.3 cm right renal cyst. IMPRESSION: Fatty liver. Right renal cyst. Reviewed, Interpreted and Dictated by Timothy Zapata III, MD Transcribed by Nurys Brown Authenticated and . [facility]
== END 2023-09-20 23:59 | disposition home or self-care (01) ==
LOC: RAD 07:22
PROVIDERS: PCP Nurse Practitioner Family; Visit Provider Student in an Organized Health Care Education/Training Program
DX: R11.0 Nausea (principal)
CPT/HCPCS: 76705

== ENCOUNTER 2023-09-21 11:04 | Outpatient (CLI) | payer MEDICARE, SELFPAY ==
[2023-09-21 11:16] LABS: Microscopic, Urine URINE MICROSCOPIC (MICROSCOPIC)
[2023-09-21 11:58] LABS: Appearance,Urine CLEAR (Clear); Bilirubin,Urine Negative (Negative); Blood, Urine Negative (Negative); Color,Urine YELLOW (Yellow); Glucose,Urine (UA) 3+ (Negative); Ketones,Urine Negative (Negative); Leukocyte Esterase,Urine Negative (Negative); Nitrate,Urine Negative (Negative); Protein,Urine Negative (Negative); Urobilinogen,Urine 0.2 EU/dl (0.2)
[2023-09-21 12:44] LABS: Alanine Aminotransferase 31 U/L (12-78); Albumin Level 4.6 g/dl (3.5-5.0); Alkaline Phosphatase 66 U/L (38-126); Anion Gap 16.1 mEq/L (5-15); Aspartate Amino Transferase 37 U/L (14-36); Bilirubin,Total 0.6 mg/dl (0.2-1.3); Blood Urea Nitrogen 24 mg/dl (7-17); Calcium 10.2 mg/dl (8.4-10.2); Carbon Dioxide 28 mmol/L (22.0-30.0); Chloride 98 mmol/L (98-107); Estimated Glomerular Filt Rate 40 ml/min (>60); GFR (African American) 49 ML/MIN (>60); Globulin 2.3 g/dL (1.3-3.2); Glucose 90 mg/dl (74-100); Potassium 5.1 mmoL/L (3.5-5.1); Sodium 137 mmol/L (136-145); Total Protein,Serum 6.9 g/dl (6.3-8.2)
[2023-09-21 15:18] LABS: Iron 134 ug/dL (37-170)
[2023-09-21 15:27] LABS: Total Iron Binding Capacity 323 ug/dL (265-497)
[2023-09-21 15:55] LABS: Ferritin 34.4 ng/ml (11.1-264)
[2023-09-21 21:22] LABS: Bacteria,Urine Trace /lpf
[2023-09-23 07:12] LABS: H. pylori Breath Test Negative (Negative)
== END 2023-09-21 23:59 | disposition home or self-care (01) ==
LOC: LAB 11:04
PROVIDERS: PCP Nurse Practitioner Family; Visit Provider Nurse Practitioner Family
DX: R14.2 Eructation (principal); R43.8 Other disturbances of smell and taste; R10.11 Right upper quadrant pain; R53.83 Other fatigue; D64.9 Anemia, unspecified; E11.69 Type 2 diabetes mellitus with other specified complication; N18.30 Chronic kidney disease, stage 3 unspecified; B96.89 Other specified bacterial agents as the cause of diseases classified elsewhere; Z79.899 Other long term (current) drug therapy
CPT/HCPCS: 36415; 80053; 81001; 82728; 83013; 83540; 83550; 83735; 87086

== ENCOUNTER 2023-09-28 10:11 | Outpatient (CLI) | payer MEDICARE, SELFPAY ==
--- NOTE | 2023-09-28 10:11 | XR_ITS ---
FINAL REPORT CLINICAL HISTORY: constipation abd pain FINDINGS: There is a nonspecific, nonobstructive bowel gas pattern. No bowel dilatation is identified. There is no abnormal calcification. There is a large amount of retained stool throughout the colon. IMPRESSION: Large stool burden consistent with constipation. Reviewed, Interpreted and Dictated by Wiley Jacobo MD Transcribed by Nurys Brown Authenticated and . [facility]
--- NOTE | 2023-09-28 10:11 | US_ITS ---
FINAL REPORT CLINICAL HISTORY: thyroid nodule COMPARISON: None FINDINGS: ULTRASOUND THYROID: Ultrasound examination of the thyroid gland was performed with no prior films available for comparison purposes. The right lobe of the thyroid measures 4 x 1.1 x 1.1 cm in size. There is a 4 mm hyperechoic focus in the right posterior lobe of the thyroid, a TI-RADS category 3 nodule. The left lobe of the thyroid measures 3.7 x 1 x 0.9 cm in size. There is a 2 to 3 mm hypoechoic nodule present in the left upper thyroid gland, a TI-RADS category 4 nodule. The isthmus is unremarkable in appearance and measures 3 mm in thickness. IMPRESSION: 2 small thyroid nodules as described, and according to TI-RADS criteria neither of these nodules requires follow-up at this time. Reviewed, Interpreted and Dictated by Wiley Jacobo MD Transcribed by Mayda Park Authenticated and [facility]
== END 2023-09-28 23:59 | disposition home or self-care (01) ==
LOC: RAD 10:11
PROVIDERS: PCP Nurse Practitioner Family; Visit Provider Nurse Practitioner Family
DX: E04.1 Nontoxic single thyroid nodule (principal); R11.0 Nausea; K59.00 Constipation, unspecified
CPT/HCPCS: 74018; 76536

== ENCOUNTER 2023-10-19 08:57 | Outpatient (CLI) | payer MEDICARE, SELFPAY ==
[2023-10-19 09:57] LABS: Blood Urea Nitrogen 17 mg/dl (7-17); Estimated Glomerular Filt Rate 37 ml/min (>60); GFR (African American) 45 ML/MIN (>60)
== END 2023-10-19 23:59 | disposition home or self-care (01) ==
LOC: LAB 08:59
PROVIDERS: PCP Nurse Practitioner Family; Visit Provider Nurse Practitioner
DX: E21.3 Hyperparathyroidism, unspecified (principal)
CPT/HCPCS: 36415; 82565; 84520

== ENCOUNTER 2023-10-20 07:49 | Outpatient (CLI) | payer MEDICARE, SELFPAY ==
--- NOTE | 2023-10-20 07:50 | NM_ITS ---
FINAL REPORT CLINICAL HISTORY: elevated PTH FINDINGS: 21.9 mCi Technetium Sestamibi was administered. Planar imaging was performed early and two-hour delayed of the neck and upper thorax. Early imaging shows physiologic uptake within the upper neck involving the salivary glands and lower neck involving the thyroid gland. On delayed imaging there is no abnormal retained activity in the lower neck or mediastinum to localize parathyroid adenoma. IMPRESSION: No scintigraphic evidence of parathyroid adenoma. Reviewed, Interpreted and Dictated by Timothy Zapata III, MD Transcribed by Elma Hayes Authenticated and [facility]
[2023-10-20] MEDS: SODIUM CHLORIDE 0.9% 10ML SYR (RAD ONLY) 10 ML IV (08:05)
[2023-10-20] MEDS: ISO TC99M (SESTAMIBI);1 DOSE VIAL IV (10:20)
== END 2023-10-20 23:59 | disposition home or self-care (01) ==
LOC: RAD 07:50
PROVIDERS: PCP Nurse Practitioner Family; Visit Provider Nurse Practitioner
DX: E21.3 Hyperparathyroidism, unspecified (principal)
CPT/HCPCS: 78071; A9500

== ENCOUNTER 2023-11-10 09:06 | Outpatient (CLI) | payer MEDICARE, SELFPAY ==
[2023-11-10 09:43] LABS: Basophils # 0.1 K/mm3 (0-0.2); Basophils % 0.9 % (0.1-2.0); Eosinophils # 0.1 K/mm3 (0.0-0.4); Hematocrit 44.1 % (37.0-47.0); Lymphocytes # 2.7 K/mm3 (0.7-4.5); Lymphocytes % 41.9 % (10-50); Mean Corpuscular HGB Conc 31.7 g/dL (31.8-35.4); Mean Corpuscular Hemoglobin 30.9 pg (27.0-31.2); Mean Corpuscular Volume 97.7 fl (81-99); Mean Platelet Volume 8.2 fl (7.4-10.4); Monocytes # 0.3 K/mm3 (0.1-1.0); Monocytes % 5.1 % (1.7-9.3); Neutrophils # 3.2 K/mm3 (1.8-7.8); Neutrophils % 51.1 % (37.0-80.0); Platelet Count 275 K/mm3 (142-424); Red Blood Count 4.52 M/mm3 (4.20-5.40); Red Cell Distribution Width 14.4 % (11.5-17.5); White Blood Count 6.3 K/mm3 (4.8-10.8)
[2023-11-10 10:30] LABS: 25-OH Vitamin D, Total 43.3 ng/mL (30-100)
== END 2023-11-10 23:59 | disposition home or self-care (01) ==
LOC: LAB 09:07
PROVIDERS: PCP Nurse Practitioner Family; Visit Provider Nurse Practitioner Family
DX: N18.30 Chronic kidney disease, stage 3 unspecified (principal); R39.9 Unspecified symptoms and signs involving the genitourinary system; E11.69 Type 2 diabetes mellitus with other specified complication; I10 Essential (primary) hypertension; Z79.4 Long term (current) use of insulin
CPT/HCPCS: 82306; 85025; 87086

== ENCOUNTER 2023-11-28 10:10 | Outpatient (CLI) | payer MEDICARE, SELFPAY ==
[2023-12-03 18:09] LABS: Arsenic, Blood 2 ug/L (0-9); Lead, Blood <1.0 ug/dL (0.0-3.4); Mercury, Blood <1.0 ug/L (0.0-14.9)
== END 2023-11-28 23:59 | disposition home or self-care (01) ==
LOC: LAB.DROPOF 10:10
PROVIDERS: PCP Nurse Practitioner Family; Visit Provider Nurse Practitioner Family
DX: R43.8 Other disturbances of smell and taste (principal)
CPT/HCPCS: 82175; 83655; 83825

== ENCOUNTER 2023-12-19 13:07 | Outpatient (CLI) | payer MEDICARE, SELFPAY ==
--- NOTE | 2023-12-19 13:08 | MR_ITS ---
FINAL REPORT CLINICAL HISTORY: Posterior neck pain with left arm radiculopathy COMPARISON: None FINDINGS: Multiplanar MR imaging of the cervical spine was performed without contrast. On the sagittal T2-weighted images, disc degeneration is seen throughout. There is no evidence of fracture. There is mild anterolisthesis of C3 on C4 and C4 on C5. The cervical spinal cord has an unremarkable appearance without evidence of mass, edema or syrinx. The cervicomedullary junction is normal. C2-3: There is no significant canal stenosis or neural foraminal narrowing. C3-4: There is a small central disc protrusion, with left facet arthropathy and severe left neural foraminal narrowing. C4-5: Disc osteophyte complex is present with moderate right neural foraminal narrowing. C5-6: Disc osteophyte complex is present with severe bilateral neural foraminal narrowing, and a small central disc protrusion. There is mild canal stenosis, with an AP canal diameter of 8 mm. C6-7: Disc osteophyte complex is present, with severe right and mild left neural foraminal narrowing. There is mild canal stenosis, with an AP canal diameter of 9 mm. C7-T1: An annular bulge is present with a left foraminal disc protrusion, mild right and moderate left neural foraminal narrowing, and mild canal stenosis with an AP canal diameter of 8 mm. T1-2: An annular bulge is present with uncovertebral osteophytes and moderate bilateral neural foraminal narrowing. IMPRESSION: Multilevel cervical degenerative change is present, with mild canal stenosis at the C5-6, C6-7, and C7-T1 levels. Reviewed, Interpreted and Dictated by Timothy Zapata III, MD Transcribed by Mayda Park Authenticated and [facility]
== END 2023-12-19 23:59 | disposition home or self-care (01) ==
LOC: RAD 13:08
PROVIDERS: PCP Nurse Practitioner Family; Visit Provider Nurse Practitioner Family
DX: M54.2 Cervicalgia (principal); M79.2 Neuralgia and neuritis, unspecified
CPT/HCPCS: 72141

== ENCOUNTER 2023-12-21 09:58 | Outpatient (CLI) | payer MEDICARE, SELFPAY ==
[2023-12-21 18:06] LABS: Basophils # 0.1 K/mm3 (0-0.2); Basophils % 0.9 % (0.1-2.0); Eosinophils # 0.1 K/mm3 (0.0-0.4); Eosinophils % 1.3 % (0.1-12.0); Hematocrit 42.1 % (37.0-47.0); Hemoglobin 13.3 g/dL (12.2-16.2); Lymphocytes # 2.3 K/mm3 (0.7-4.5); Lymphocytes % 43.1 % (10-50); Mean Corpuscular HGB Conc 31.5 g/dL (31.8-35.4); Mean Corpuscular Hemoglobin 31.5 pg (27.0-31.2); Mean Corpuscular Volume 99.8 fl (81-99); Mean Platelet Volume 8.9 fl (7.4-10.4); Monocytes # 0.4 K/mm3 (0.1-1.0); Monocytes % 7.8 % (1.7-9.3); Neutrophils # 2.5 K/mm3 (1.8-7.8); Neutrophils % 46.9 % (37.0-80.0); Platelet Count 304 K/mm3 (142-424); Red Blood Count 4.22 M/mm3 (4.20-5.40); Red Cell Distribution Width 14.2 % (11.5-17.5); White Blood Count 5.4 K/mm3 (4.8-10.8)
[2023-12-21 18:38] LABS: Alanine Aminotransferase 23 U/L (12-78); Albumin Level 4.3 g/dl (3.5-5.0); Albumin/Globulin Ratio 1.7 (1.1-1.8); Alkaline Phosphatase 67 U/L (38-126); Anion Gap 14.2 mEq/L (5-15); Aspartate Amino Transferase 28 U/L (14-36); Bilirubin,Total 0.7 mg/dl (0.2-1.3); Blood Urea Nitrogen 25 mg/dl (7-17); Calcium 9.9 mg/dl (8.4-10.2); Carbon Dioxide 29 mmol/L (22.0-30.0); Chloride 98 mmol/L (98-107); Estimated Glomerular Filt Rate 40 ml/min (>60); GFR (African American) 49 ML/MIN (>60); Globulin 2.5 g/dL (1.3-3.2); Glucose 137 mg/dl (74-100); Potassium 5.2 mmoL/L (3.5-5.1); Sodium 136 mmol/L (136-145); Total Protein,Serum 6.8 g/dl (6.3-8.2)
[2023-12-21 19:21] LABS: Vitamin B12 436 pg/mL (239-931)
[2024-01-09 09:29] LABS: Antinuclear Antibodies (ANA) NEGATIVE
== END 2023-12-21 23:59 | disposition home or self-care (01) ==
LOC: LAB.DROPOF 12-22 09:44
PROVIDERS: PCP Student in an Organized Health Care Education/Training Program; Visit Provider Student in an Organized Health Care Education/Training Program
DX: R20.8 Other disturbances of skin sensation (principal); R09.89 Other specified symptoms and signs involving the circulatory and respiratory systems
CPT/HCPCS: 80053; 82607; 85025; 86038

== ENCOUNTER 2023-12-22 14:22 | Outpatient (CLI) | payer MEDICARE, SELFPAY ==
--- NOTE | 2023-12-22 14:22 | US_ITS ---
FINAL REPORT CLINICAL HISTORY: diminished pulses LE, HTN, DM, hyperlipidemia, Hx CABG, bilateral claudication, bilateral rest pain, bilateral discolored great toes. COMPARISON: None FINDINGS: ANKLE-BRACHIAL PRESSURE INDICES Pressure indices are as follows: RIGHT LOWER EXTREMITY: Ankle-brachial pressure index: 1.01 Comments: Normal LEFT LOWER EXTREMITY: Ankle-brachial pressure index: 1.08 Comments: Normal CONCLUSION: No evidence of significant obstructive peripheral vascular disease of the lower extremities Reviewed, Interpreted and Dictated by Timothy Zapata III, MD Transcribed by Mayda Park Authenticated and [facility]
== END 2023-12-22 23:59 | disposition home or self-care (01) ==
LOC: RT 14:22
PROVIDERS: PCP Nurse Practitioner Family; Visit Provider Student in an Organized Health Care Education/Training Program
DX: R09.89 Other specified symptoms and signs involving the circulatory and respiratory systems (principal)
CPT/HCPCS: 93923

== ENCOUNTER 2024-01-10 08:58 | Outpatient (POV) | payer MEDICARE, SELFPAY ==
--- NOTE | 2024-01-10 09:17 | EXP.PAIN.OV ---
HPI Data of Consult Patient: new to practice Consult date: 01/10/24 Requesting Physician: Lu Healy APRN Primary Care Provider: Maribel Ambriz APRN Consult Narrative Reason for consult: Neck pain with left arm pain bilateral hand numbness History of present illness: Ms. Morales is a 73 year old female who presents today as a new patient. She is a referral from Maribel Ambriz's office. Patient rates her pain today an 8 out of 10. Patient states that she has pain throughout her neck with radiating symptoms more prominent in her left arm however has numbness and tingling in both her hands. Patient states the neck pain is gone on for years however the worsening numbness and pain has been over the last 3 months. She denies any specific injury or trauma. Patient does describe her pain a aching sensation with occasional sharp pains depending on her neck position. She does state that it is worse with increased activity or when she is trying to do more hand movements. She does state that she has a weak hop grower and can drop things. Patient does try [id number] Tylenol along with heat and ice and topicals with minimal relief. Patient did have physical therapy in the past with no additional help and chiropractor that made her symptoms worse. Patient has continued her at home stretching exercise that was physician guided for longer than 6 weeks with no help. Patient does state that she did have 1 injection in her neck years ago and it significantly helps up until the last year or so. Patient is interested in repeating injections. She states she does get these for her low back. Patient does also state that she recently talked with her primary care about her worsening leg pain and did go for an FAWN test that was all normal. Patient states that her primary care thought that it is diabetic peripheral neuropathy. She was mention that medication such as gabapentin and amitriptyline may help with this. She states that her primary care mention to ask our office if there were any newer medications that we would suggest.Patient is not on any blood thinners. Her Mitch has been reviewed and is appropriate. CC: Lu Healy APRN [facility] Disclaimer: The information contained in this section may have been updated after the patient was seen, as this information can be updated by other users. Medical History Abdominal pain Abnormal cardiovascular stress test Acute effusion of both middle ears Angina pectoris Atypical angina Breast CA 2013, left Breast cancer in female Burping Chest pain Chest pain Constipation, unspecified Contusion of elbow, left Contusion of knee, left Contusion of left upper arm Daytime somnolence Dehydration, mild Diastolic dysfunction 02/2018 Discharge from left nipple Awaiting breast MRI at requested by [facility]- Dizziness Dysphagia Dyspnea Edema Edema of both lower extremities Extrapyramidal disorder Fall Fatigue Frequent falls Gallstones H/O malignant neoplasm of breast Head injury Hoarseness Kidney failure stage 3 Labile blood pressure Left breast mass removed 09/2013 Nausea Neck pain on right side Pharyngitis Restless sleeper Rib pain on left side Right otitis media Right upper quadrant pain Secondary hyperparathyroidism Sinusitis Sinusitis Skin tear of left hand without complication Syncope Typical angina Typical angina Urinary tract infection symptoms Vaginal yeast infection Surgical History H/O thumb surgery H/O tubal ligation 1979 History of breast biopsy History of colonoscopy 12/2021, [facility], History of coronary artery bypass graft x 1 05/2019, Dr. Puckett History of esophagogastroduodenoscopy (EGD) 12/2021, [facility], Stented coronary artery 08/2018 Family History Mother , at age 68 Congestive heart failure Crohn's disease Father , at age 84 Hypertension Cancer lung and colon ca Sister Diabetes Coronary artery disease Sister Cancer breast Diabetes Brother Coronary artery disease Grandmother Cancer paternal grandmother-colon ca Other No significant family history Social History Smoking Status: Never smoker second hand exposure: No alcohol intake: never counseling provided: none substance use type: denies use current occupational status: retired Travel in the last 8 weeks: None household members: spouse housing: house marital status: number of children: 4 current occupational exposures/hazards: No caffeine: Yes do you feel safe at home: Yes victim of physical abuse: No victim of emotional abuse: No victim of sexual abuse: No would you like helpful sources: No Review of Systems Review of Systems Review of systems:: pertinent systems reviewed and negative unless documented below Review of systems (narrative): Review of Systems: General: No recent weight changes, no fever, no sleep disturbances Respiratory: No cough, no shortness of air, no recurring pulmonary infections Cardiovascular/peripheral vascular: No chest pain, no palpitations, no edema, no shortness of breath Gastrointestinal: No new onset incontinence, normal bowel movements reported Genitourinary: No new onset incontinence Musculoskeletal: Neck pain, left arm pain bilateral hand numbness Psychiatric: [Normal mood/affect] Neurological: [Denies weakness in extremities], [denies balance issues] Meds Home Medications and Allergies Home Medications ?Medication ?Instructions ?Recorded ?Confirmed ?Type milnacipran 50 mg tablet (Savella) 50 mg PO BID 02/28/23 01/09/24 History depression/fibromyalgia magnesium oxide 400 mg PO DAILY Supplement 03/01/23 01/09/24 History nitroglycerin 0.4 mg sublingual 0.4 mg sublingual Q5-15M 03/09/23 01/09/24 History tablet furosemide 20 mg tablet 20 mg PO DAILY Edema #90 tabs 04/12/23 01/09/24 Rx insulin human U-100 NPH-regulr 30 unit (0.3 mL) SQ BID Diabetes 04/27/23 01/09/24 Rx 70-30 mix 100 unit/mL subcutaneous #60 mL susp (Novolin 70/30 U-100 Insulin) isosorbide mononitrate 60 mg 60 mg PO BID #180 tabs 07/25/23 01/09/24 Rx tablet,extended release 24 hr escitalopram oxalate 20 mg tablet 20 mg PO DAILY anxiety/depression 08/24/23 01/09/24 Rx #90 tabs pantoprazole 40 mg tablet,delayed 40 mg PO DAILY #90 tabs 08/24/23 01/09/24 Rx release ranolazine 1,000 mg 1,000 mg PO BID 08/24/23 01/09/24 History tablet,extended release,12 hr empagliflozin 10 mg tablet 10 mg PO DAILY Diabetes #90 tabs 09/09/23 01/09/24 Rx (Jardiance) clopidogrel 75 mg tablet 75 mg PO DAILY 09/21/23 01/09/24 History ezetimibe 10 mg tablet 10 mg PO DAILY Cholesterol 90 days 09/21/23 01/09/24 Rx #90 tabs promethazine 12.5 mg tablet 6.25 mg (1/2 x 12.5 mg) PO BID PRN 09/21/23 01/09/24 Rx nausea and vomiting #30 tabs levocetirizine 5 mg tablet (Xyzal) 5 mg PO HS #90 tabs 11/07/23 01/09/24 Rx evolocumab 140 mg/mL subcutaneous 140 mg SQ Q2W 11/28/23 01/09/24 History pen injector (Repatha SureClick) flash glucose sensor (FreeStyle #6 ea 11/28/23 01/09/24 Rx Mounika 14 Day Sensor kit) calcitriol 0.25 mcg capsule 0.25 mcg PO Q OTHER DAY 12/07/23 01/09/24 History lisinopril 2.5 mg tablet 2.5 mg PO DAILY 12/21/23 01/09/24 History bisoprolol fumarate 5 mg tablet 5 mg PO DAILY 01/09/24 01/09/24 History fluticasone propionate 50 1 spray intranasal DAILY PRN 01/09/24 01/09/24 History mcg/actuation nasal spray,suspension (Allergy Relief (fluticasone)) New Prescriptions to Start Prescriptions: Allergies Allergy/AdvReac Type Severity Reaction Status Date / Time Ncxghqu-NZG-YwK Reductase Allergy Severe Unknown Verified 01/09/24 09:03 Inhibitor allergy [Gbskggw-Rjs-Dvr Reductase reaction Inhibitor] Penicillins Allergy Intermediate I-RASH Verified 01/09/24 09:03 losartan Allergy Mild Verified 01/09/24 09:03 cefuroxime [From Ceftin] Allergy Unknown Verified 01/09/24 09:03 allergy reaction Objective Narrative: Physical Exam: General: Alert and oriented x3, no acute distress, pleasant and cooperative Lungs: Respirations even and unlabored, symmetrical chest expansion Eyes: PERRL Musculoskeletal: Flexion and extension of cervical [spine] somewhat guarded secondary to pain, [antalgic gait noted] positive Spurling's test Neurological: Speech clear, no gross sensory deficit Additional findings Additional findings: FINDINGS: Multiplanar MR imaging of the cervical spine was performed without contrast. On the sagittal T2-weighted images, disc degeneration is seen throughout. There is no evidence of fracture. There is mild anterolisthesis of C3 on C4 and C4 on C5. The cervical spinal cord has an unremarkable appearance without evidence of mass, edema or syrinx. The cervicomedullary junction is normal. C2-3: There is no significant canal stenosis or neural foraminal narrowing. C3-4: There is a small central disc protrusion, with left facet arthropathy and severe left neural foraminal narrowing. C4-5: Disc osteophyte complex is present with moderate right neural foraminal narrowing. C5-6: Disc osteophyte complex is present with severe bilateral neural foraminal narrowing, and a small central disc protrusion. There is mild canal stenosis, with an AP canal diameter of 8 mm. C6-7: Disc osteophyte complex is present, with severe right and mild left neural foraminal narrowing. There is mild canal stenosis, with an AP canal diameter of 9 mm. C7-T1: An annular bulge is present with a left foraminal disc protrusion, mild right and moderate left neural foraminal narrowing, and mild canal stenosis with an AP canal diameter of 8 mm. T1-2: An annular bulge is present with uncovertebral osteophytes and moderate bilateral neural foraminal narrowing. IMPRESSION: Multilevel cervical degenerative change is present, with mild canal stenosis at the C5-6, C6-7, and C7-T1 levels. Reviewed, Interpreted and Dictated by Timothy Zapaat III, MD Transcribed by Mayda Park Authenticated and [facility] Assessment and Plan *Assessment and plan (1) Degenerative disc disease, cervical: Status: Acute Category: Medical Code(s): M50.30 - Other cervical disc degeneration, unspecified cervical region (2) Cervical radiculopathy: Status: Acute Category: Medical Code(s): M54.12 - Radiculopathy, cervical region (3) Cervical spinal stenosis: Status: Acute Category: Medical Code(s): M48.02 - Spinal stenosis, cervical region (4) Radicular pain in left arm: Status: Acute Category: Medical Code(s): M79.2 - Neuralgia and neuritis, unspecified Plan Patient is experiencing significant pain throughout her neck with radiating symptoms of numbness and tingling down into both bilateral arms and hands. Patient did have limited range of motion of her cervical spine and a positive Spurling's test. I have discussed with the patient that she may benefit from cervical epidural steroid injection. Risk and benefits were discussed with the patient and she would like to proceed forward with this plan of care. Patient is on blood thinner by Dr. Betts's office and I have counseled her that we will stop this medication prior to this injection. We will reach out to his office to confirm that she can discontinue this medication temporarily. I will also order the patient a compounded cream. Patient has tried and failed conservative therapies with continued at home exercising and stretching for longer than 6 weeks. Patient will be scheduled for a EULA C5-C6 under fluoroscopy. Patient has been instructed to contact the clinic with any concerns before the next appointment. Dr. Jovel has reviewed this note and agrees with this plan of care. This note was dictated using voice recognition software and make contain errors or omissions. All injections are used with Lidocaine or Bupivacaine and Depo Medrol.
[2024-01-10 09:27] VITALS: BP 140/89; PULSE 68; RESP 18; O2SAT 100; BMI 34.7
== END 2024-01-10 23:59 | disposition home or self-care (01) ==
LOC: SC.PAIN 08:59
PROVIDERS: PCP Nurse Practitioner Family; Visit Provider Nurse Practitioner Family
DX: M48.02 Spinal stenosis, cervical region; M79.2 Neuralgia and neuritis, unspecified; M50.10 Cervical disc disorder with radiculopathy, unspecified cervical region; Z95.1 Presence of aortocoronary bypass graft; I25.10 Atherosclerotic heart disease of native coronary artery without angina pectoris; I21.4 Non-ST elevation (NSTEMI) myocardial infarction; Z79.4 Long term (current) use of insulin; E11.9 Type 2 diabetes mellitus without complications; Z85.3 Personal history of malignant neoplasm of breast
CPT/HCPCS: 99202; G0463

== ENCOUNTER 2024-01-23 08:27 | Day surgery (SDC) | payer MEDICARE, SELFPAY ==
[2024-01-23 08:39] VITALS: BP 123/63; PULSE 81; RESP 16; TEMP 36.8; O2SAT 95; BMI 34.3
[2024-01-23] MEDS: methylPREDNISolone ACETATE 80MG/ML VIAL 80 MG (08:59)
[2024-01-23 09:00] VITALS: BP 142/68; PULSE 74; RESP 18; O2SAT 97
[2024-01-23 09:01] VITALS: BP 142/68; PULSE 74; RESP 18; O2SAT 97
[2024-01-23] MEDS: IOPAMIDOL-200 (41%);10ML VIAL 10 ML IV (09:02)
[2024-01-23 09:04] VITALS: BP 157/59; PULSE 67; RESP 18; O2SAT 95
--- NOTE | 2024-01-23 09:12 | P.PCN_ITS ---
Procedure Date: 01/23/24 Time: 09:00 Anesthesiologist:: Bang Peters CRNA Complications:: None Pre-procedure Diagnosis:: Degenerative disc cervical spine multilevels. Cervical radiculopathy. Post-procedure Diagnosis:: Same. Indications for Procedure:: Patient is a pleasant 73-year-old female comes our clinic today for cervical epidural steroid injection. Patient has had cervical epidural injection in the past at a different facility. She reports significant improvement terms of her overall cervical neck pain as well as bilateral arm radiculopathy. She describes cervical neck pain as well as bilateral arm radiculopathy. Left arm greater than right. She rates her pain 8/10. Procedure Details:: Procedure:Cervical epidural steroid injection Informed consent was obtained and the risks and benefits of the procedure were explained to the patient. The patient was taken to the procedure room and noninvasive monitors placed, including noninvasive blood pressure cuff and pulse oximeter. The neck was prepped using Chloraprep as a cleansing solution. The C6- C7 interspace was viewed using fluroscopy. The skin and subcutaneous tissues were anesthetized using lidocaine 1.5% and a 25-gauge needle. After this an 18- gauge Touhy epidural needle was placed into the C6-C7 interspace under fluroscopy guidance and advanced using loss of resistance to air until the epidural space was encountered. After confirmation of needle placement in the epidural space using contrast dye, a solution containing normal saline, 2 mL and Depo-Medrol 80 mg was incrementally injected into the cervical epidural space.~ The patient tolerated the procedure well with no complications. The patient was observed in the Pain Clinic and then discharged home neurologically intact. Plan and Disposition:: Patient was discharged without incident.
== END 2024-01-23 09:04 | disposition home or self-care (01) ==
LOC: SC.PAINP 08:29
PROVIDERS: PCP Nurse Practitioner Family; Visit Provider Nurse Anesthetist, Certified Registered
DX: M50.30 Other cervical disc degeneration, unspecified cervical region (principal); M54.12 Radiculopathy, cervical region
CPT/HCPCS: 62321; J1010; Q9966

== ENCOUNTER 2024-02-08 08:31 | Outpatient (POV) | payer MEDICARE, SELFPAY ==
[2024-02-08 08:41] VITALS: BP 121/56; PULSE 82; RESP 16; O2SAT 99; BMI 34.8
--- NOTE | 2024-02-08 08:57 | A.OFFVIS_ITS ---
[facility] Disclaimer: The information contained in this section may have been updated after the patient was seen, as this information can be updated by other users. Medical History Burping Nausea Vaginal yeast infection Secondary hyperparathyroidism Hoarseness Dysphagia Constipation, unspecified Abdominal pain Fatigue Neck pain on right side Urinary tract infection symptoms Pharyngitis Sinusitis Right otitis media Rib pain on left side Right upper quadrant pain Left breast mass removed 09/2013 Acute effusion of both middle ears H/O malignant neoplasm of breast Edema of both lower extremities Frequent falls Contusion of left upper arm Head injury Contusion of knee, left Contusion of elbow, left Skin tear of left hand without complication Dehydration, mild Kidney failure stage 3 Sinusitis Labile blood pressure Typical angina Fall Syncope Dyspnea Typical angina Gallstones Discharge from left nipple Awaiting breast MRI at requested by [facility] Breast CA 2013, left Dizziness Chest pain Breast cancer in female Extrapyramidal disorder Restless sleeper Daytime somnolence Abnormal cardiovascular stress test Atypical angina Chest pain Angina pectoris Diastolic dysfunction 02/2018 Edema Surgical History History of esophagogastroduodenoscopy (EGD) 12/2021, [facility], H/O thumb surgery H/O tubal ligation 1980 History of colonoscopy 12/2021, [facility], History of breast biopsy History of coronary artery bypass graft x 1 05/2019, Dr. Puckett Stented coronary artery 08/2018 Family History Mother , at age 68 Congestive heart failure Crohn's disease Father , at age 84 Hypertension Cancer lung and colon ca Sister Diabetes Coronary artery disease Sister Cancer breast Diabetes Brother Coronary artery disease Grandmother Cancer paternal grandmother-colon ca Other No significant family history Social History Smoking Status: Never smoker second hand exposure: No alcohol intake: never counseling provided: none substance use type: denies use current occupational status: retired Travel in the last 8 weeks: None household members: spouse housing: house marital status: number of children: 4 current occupational exposures/hazards: No caffeine: Yes do you feel safe at home: Yes victim of physical abuse: No victim of emotional abuse: No victim of sexual abuse: No would you like helpful sources: No PM Subjective & Objective Subjective Subjective:: Patient is a pleasant 73-year-old female who presents today for follow-up of cervical epidural steroid injection C6-C7 on 01/23/2024. Today she rates her pain a 2 out of 10. Patient states she has had at least 85 to 90% improvement following this injection. She states she has been able to increase her activity with overall decreased pain and more function. 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 Patient does also state that the compounded cream is helping as well. Her Mitch has been reviewed and is appropriate. Review of Systems: General: No recent weight changes, no fever, no sleep disturbances Respiratory: No cough, no shortness of air, no recurring pulmonary infections Cardiovascular/peripheral vascular: No chest pain, no palpitations, no edema, no shortness of breath Gastrointestinal: No new onset incontinence, normal bowel movements reported Genitourinary: No new onset incontinence Musculoskeletal: Neck pain Psychiatric: [Normal mood/affect] Neurological: [Denies weakness in extremities], [denies balance issues] Pain at rest (0-10 scale): 2 Objective Objective:: Physical Exam: General: Alert and oriented x3, no acute distress, pleasant and cooperative Lungs: Respirations even and unlabored, symmetrical chest expansion Eyes: PERRL Musculoskeletal: Flexion and extension of cervical [spine] somewhat guarded secondary to pain, [antalgic gait noted] Neurological: Speech clear, no gross sensory deficit Has patient had previous pain injection?: Yes Percent improvement in pain since last injection: 85-90% Conservative treatment options previously tried: Home exercise plan Length of treatment: Longer than 6 weeks Meds Home Medications and Allergies Home Medications ?Medication ?Instructions ?Recorded ?Confirmed ?Type milnacipran 50 mg tablet (Savella) 50 mg PO BID 02/28/23 02/08/24 History depression/fibromyalgia nitroglycerin 0.4 mg sublingual 0.4 mg sublingual Q5-15M 03/09/23 02/08/24 History tablet furosemide 20 mg tablet 20 mg PO DAILY Edema #90 tabs 04/12/23 02/08/24 Rx insulin human U-100 NPH-regulr 30 unit (0.3 mL) SQ BID Diabetes 04/27/23 02/08/24 Rx 70-30 mix 100 unit/mL subcutaneous #60 mL susp (Novolin 70/30 U-100 Insulin) isosorbide mononitrate 60 mg 60 mg PO BID #180 tabs 07/25/23 02/08/24 Rx tablet,extended release 24 hr escitalopram oxalate 20 mg tablet 20 mg PO DAILY anxiety/depression 08/24/23 02/08/24 Rx #90 tabs pantoprazole 40 mg tablet,delayed 40 mg PO DAILY #90 tabs 08/24/23 02/08/24 Rx release ranolazine 1,000 mg 1,000 mg PO BID 08/24/23 02/08/24 History tablet,extended release,12 hr empagliflozin 10 mg tablet 10 mg PO DAILY Diabetes #90 tabs 09/09/23 02/08/24 Rx (Jardiance) clopidogrel 75 mg tablet 75 mg PO DAILY 09/21/23 02/08/24 History ezetimibe 10 mg tablet 10 mg PO DAILY Cholesterol 90 days 09/21/23 02/08/24 Rx #90 tabs levocetirizine 5 mg tablet (Xyzal) 5 mg PO HS #90 tabs 11/07/23 02/08/24 Rx flash glucose sensor (FreeStyle #6 ea 11/28/23 02/08/24 Rx Mounika 14 Day Sensor kit) calcitriol 0.25 mcg capsule 0.25 mcg PO Q OTHER DAY 12/07/23 02/08/24 History lisinopril 2.5 mg tablet 2.5 mg PO DAILY 12/21/23 02/08/24 History bisoprolol fumarate 5 mg tablet 5 mg PO DAILY 01/09/24 02/08/24 History fluticasone propionate 50 1 spray intranasal DAILY PRN 01/09/24 02/08/24 History mcg/actuation nasal ALLERGIES spray,suspension (Allergy Relief (fluticasone)) gabapentin 100 mg capsule 100 mg PO TID #90 caps 01/11/24 02/08/24 Rx evolocumab 140 mg/mL subcutaneous See Rx Instructions .Route 01/18/24 02/08/24 Rx pen injector (Conchita Muñoz) .COMPLEX #2 mL azithromycin 250 mg tablet See Rx Instructions PO .COMPLEX #6 02/01/24 02/08/24 Rx tabs magnesium oxide 400 mg PO DAILY Supplement 02/01/24 02/08/24 History methylprednisolone 4 mg tablets in 4 mg PO DAILY #21 tabs 02/01/24 02/08/24 Rx a dose pack (Medrol (Ed)) New Prescriptions to Start Prescriptions: Allergies Allergy/AdvReac Type Severity Reaction Status Date / Time Ghzyoxv-VLE-IqU Reductase Allergy Severe Unknown Verified 02/01/24 13:18 Inhibitor allergy [Yvaxrva-Ojy-Dhk Reductase reaction Inhibitor] Penicillins Allergy Intermediate I-RASH Verified 02/01/24 13:18 losartan Allergy Mild Verified 02/01/24 13:18 cefuroxime [From Ceftin] Allergy Unknown Verified 02/01/24 13:18 allergy reaction Assessment and Plan *Assessment and plan (1) Cervical radiculopathy: Status: Acute Category: Medical Code(s): M54.12 - Radiculopathy, cervical region (2) Degenerative disc disease, cervical: Status: Acute Category: Medical Code(s): M50.30 - Other cervical disc degeneration, unspecified cervical region Plan Patient has had significant improvement following her cervical epidural and does not require any additional injection therapy at this time. Patient will return to clinic in 1 month for reevaluation of symptoms and plan of care. Patient has been instructed to contact the clinic with any concerns before the next appointment. Dr. Jovel has reviewed this note and agrees with this plan of care. This note was dictated using voice recognition software and make contain errors or omissions. All injections are used with Lidocaine or Bupivacaine and Depo Medrol.
== END 2024-02-08 23:59 | disposition home or self-care (01) ==
LOC: SC.PAIN 08:32
PROVIDERS: PCP Nurse Practitioner Family; Visit Provider Nurse Practitioner Family
DX: M50.10 Cervical disc disorder with radiculopathy, unspecified cervical region (principal); I25.10 Atherosclerotic heart disease of native coronary artery without angina pectoris; I10 Essential (primary) hypertension; E11.9 Type 2 diabetes mellitus without complications; Z95.1 Presence of aortocoronary bypass graft; Z95.5 Presence of coronary angioplasty implant and graft; Z79.4 Long term (current) use of insulin; Z79.899 Other long term (current) drug therapy
CPT/HCPCS: 99212; G0463

== ENCOUNTER 2024-02-14 13:39 | Outpatient (CLI) | payer MEDICARE, SELFPAY ==
[2024-02-14 13:46] LABS: Microscopic, Urine URINE MICROSCOPIC (MICROSCOPIC)
[2024-02-14 14:42] LABS: Appearance,Urine CLEAR (Clear); Bilirubin,Urine Negative (Negative); Blood, Urine Negative (Negative); Color,Urine YELLOW (Yellow); Glucose,Urine (UA) 2+ (Negative); Ketones,Urine Negative (Negative); Leukocyte Esterase,Urine Negative (Negative); Nitrate,Urine Negative (Negative); Protein,Urine Negative (Negative); Urobilinogen,Urine 0.2 EU/dl (0.2)
[2024-02-14 14:43] LABS: Basophils # 0.1 K/mm3 (0-0.2); Basophils % 0.6 % (0.1-2.0); Eosinophils # 0.1 K/mm3 (0.0-0.4); Eosinophils % 0.7 % (0.1-12.0); Hematocrit 43.4 % (37.0-47.0); Hemoglobin 13.5 g/dL (12.2-16.2); Lymphocytes # 4.3 K/mm3 (0.7-4.5); Lymphocytes % 52.5 % (10-50); Mean Corpuscular HGB Conc 31.1 g/dL (31.8-35.4); Mean Corpuscular Hemoglobin 30.7 pg (27.0-31.2); Mean Corpuscular Volume 98.7 fl (81-99); Mean Platelet Volume 7.8 fl (7.4-10.4); Monocytes # 0.5 K/mm3 (0.1-1.0); Monocytes % 6.5 % (1.7-9.3); Neutrophils # 3.2 K/mm3 (1.8-7.8); Neutrophils % 39.7 % (37.0-80.0); Platelet Count 251 K/mm3 (142-424); Red Blood Count 4.39 M/mm3 (4.20-5.40); Red Cell Distribution Width 13.8 % (11.5-17.5); White Blood Count 8.2 K/mm3 (4.8-10.8)
[2024-02-14 14:52] LABS: MANUAL DIFFERENTIAL MANUAL DIFFERENTIAL (MANUAL DIFF)
[2024-02-14 15:00] LABS: RBC,Urine Occasional #/hpf (0-3)
[2024-02-14 15:05] LABS: Hemoglobin A1C 7.3 % (4.0-6.0)
[2024-02-14 15:06] LABS: Alanine Aminotransferase 23 U/L (12-78); Albumin Level 3.7 g/dl (3.5-5.0); Albumin/Globulin Ratio 1.3 (1.1-1.8); Alkaline Phosphatase 59 U/L (38-126); Aspartate Amino Transferase 34 U/L (14-36); Bilirubin,Total 0.5 mg/dl (0.2-1.3); Blood Urea Nitrogen 21 mg/dl (7-17); Calcium 9.1 mg/dl (8.4-10.2); Carbon Dioxide 26 mmol/L (22.0-30.0); Chloride 100 mmol/L (98-107); Chol/HDL Ratio 2.7 (1-3.5); Cholesterol 190 mg/dl (140-200); Estimated Glomerular Filt Rate 44 ml/min (>60); GFR (African American) 53 ML/MIN (>60); Globulin 2.9 g/dL (1.3-3.2); Glucose 147 mg/dl (74-100); HDL Cholesterol 71 mg/dl (40-60); Sodium 133 mmol/L (136-145); Total Protein,Serum 6.6 g/dl (6.3-8.2); Triglycerides 363 mg/dl (30-150); VLDL Cholesterol 73 mg/dL (0-40)
[2024-02-14 15:08] LABS: Lymphocytes % 44 % (10-50); Monocytes % 6 % (2-9); Neutrophils % 49 % (42-76); Platelet Estimate Normal; RBC Morphology Normal; Total Cells Counted 100
[2024-02-14 15:17] LABS: Direct LDL Cholesterol 74.65 mg/dL (100-129)
[2024-02-14 15:20] LABS: Free T4 (Free Thyroxine) 0.79 ng/dl (0.78-2.19)
[2024-02-14 15:36] LABS: Thyroid Stimulating Hormone 2.85 uIU/mL (0.465-4.68)
[2024-02-14 16:01] LABS: Intact Parathyroid Hormone 112.2 pg/mL (7.5-53.5)
[2024-02-14 16:30] LABS: Vitamin B12 425 pg/mL (239-931)
== END 2024-02-14 23:59 | disposition home or self-care (01) ==
LOC: LAB 13:41
PROVIDERS: PCP Nurse Practitioner Family; Visit Provider Nurse Practitioner Family
DX: N18.30 Chronic kidney disease, stage 3 unspecified (principal); I10 Essential (primary) hypertension; E11.69 Type 2 diabetes mellitus with other specified complication; R39.9 Unspecified symptoms and signs involving the genitourinary system; R53.83 Other fatigue; E78.2 Mixed hyperlipidemia; E04.1 Nontoxic single thyroid nodule; N25.81 Secondary hyperparathyroidism of renal origin; E21.3 Hyperparathyroidism, unspecified
CPT/HCPCS: 36415; 80050; 80053; 80061; 81001; 82607; 83036; 83970; 84156; 84439; 84443; 85007; 85025; 87086

== ENCOUNTER 2024-02-26 11:00 | Outpatient (CLI) | payer MEDICARE, SELFPAY ==
[2024-02-26 15:43] LABS: Microscopic, Urine URINE MICROSCOPIC (MICROSCOPIC)
[2024-02-26 16:00] LABS: Appearance,Urine CLEAR (Clear); Bilirubin,Urine Negative (Negative); Blood, Urine Negative (Negative); Color,Urine YELLOW (Yellow); Glucose,Urine (UA) 3+ (Negative); Ketones,Urine Negative (Negative); Leukocyte Esterase,Urine Negative (Negative); Nitrate,Urine Negative (Negative); Protein,Urine Negative (Negative); Urobilinogen,Urine 0.2 EU/dl (0.2)
[2024-02-26 16:47] LABS: Bacteria,Urine Trace /lpf; Squamous Epithelial Cell,Urine Occasional #/hpf (0-5); WBC,Urine Occasional #/hpf (0-3); Yeast,Urine 2+ /lpf
== END 2024-02-26 23:59 | disposition home or self-care (01) ==
LOC: LAB.DROPOF 02-27 10:16
PROVIDERS: PCP Urology; Visit Provider Urology
DX: R33.9 Retention of urine, unspecified
CPT/HCPCS: 81001; 87086

== ENCOUNTER 2024-03-05 07:16 | Outpatient (CLI) | payer MEDICARE, SELFPAY ==
--- NOTE | 2024-03-05 07:21 | CT_ITS ---
FINAL REPORT TECHNIQUE: Axial CT of the abdomen and pelvis, without and with IV contrast. This study was performed with techniques to keep radiation doses as low as reasonably achievable, (ALARA). Individualized dose reduction techniques using automated exposure control or adjustment of mA and/or kV according to the patient's size were employed. CLINICAL HISTORY: URethral caruncle COMPARISON: 06/30/2022 FINDINGS: Abdomen: Lung bases are clear. Liver has an unremarkable CT appearance. The spleen, pancreas and adrenal glands are unremarkable. Precontrast imaging shows no renal stone disease. Postcontrast imaging of the kidneys shows bilateral benign renal cysts, on the right measuring 28 mm in diameter, on the left in the lower pole measuring 48 mm in diameter. These are slightly larger on today's examination. No evidence of upper ureteral obstruction is seen. No bowel obstruction or fluid collection is seen. Pelvis: The appendix is normal in appearance. Pelvic bowel loops are unremarkable. No fluid collection or adenopathy is seen. The uterus has been surgically resected. The bladder is unremarkable in appearance. IMPRESSION: Bilateral renal cysts remain present, slightly larger than seen on the prior CT of 2022. Normal-appearing bladder without evidence of pelvic adenopathy or upper ureteral obstruction. Reviewed, Interpreted and Dictated by Scott Wong MD Transcribed by Mayda Park Authenticated and [facility]
--- NOTE | 2024-03-05 07:21 | CT_ITS ---
FINAL REPORT CLINICAL HISTORY: right chest and breast pain FINDINGS: CT CHEST without contrast COMPARISON: 03/23/2022. TECHNIQUE: Axial CT without contrast This study was performed with techniques to keep radiation doses as low as reasonably achievable, (ALARA). Individualized dose reduction techniques using automated exposure control or adjustment of mA and/or kV according to the patient's size were employed. FINDINGS: No acute lung disease is present . No pleural or pericardial effusion is seen . No adenopathy or mass lesion is present . A 3 mm right upper lobe nodule is present, best seen on image #23, stable when compared to the prior exam. The patient is status post CABG. No obvious chest wall mass is identified. IMPRESSION: 3 mm stable right upper lobe nodule. No evidence of adenopathy or effusion, and no obvious chest wall mass identified. This study was performed using automated techniques to achieve radiation exposure as low as reasonably achievable Reviewed, Interpreted and Dictated by Scott Wong MD Transcribed by Mayda Park Authenticated and [facility]
[2024-03-05] MEDS: SODIUM CHLORIDE 0.9% 10ML SYR (RAD ONLY) 10 ML IV (07:38)
[2024-03-05] MEDS: IOPAMIDOL-370 (76%);100ML BOTTLE 75 ML IV (07:38)
[2024-03-05 09:16] LABS: Blood Urea Nitrogen 31 mg/dl (7-17); Estimated Glomerular Filt Rate 34 ml/min (>60); GFR (African American) 41 ML/MIN (>60)
== END 2024-03-05 23:59 | disposition home or self-care (01) ==
LOC: RAD 07:18
PROVIDERS: Urology; PCP Nurse Practitioner Family; Visit Provider Nurse Practitioner Family
DX: N81.0 Urethrocele (principal); N36.2 Urethral caruncle; R07.89 Other chest pain; N64.4 Mastodynia; N32.81 Overactive bladder
CPT/HCPCS: 36415; 71250; 74178; 82565; 84520; Q9967

== ENCOUNTER 2024-03-07 09:16 | Outpatient (CLI) | payer MEDICARE, SELFPAY ==
[2024-03-07 09:24] LABS: Microscopic, Urine URINE MICROSCOPIC (MICROSCOPIC)
[2024-03-07 09:44] LABS: Appearance,Urine CLEAR (Clear); Bilirubin,Urine Negative (Negative); Blood, Urine Negative (Negative); Color,Urine YELLOW (Yellow); Glucose,Urine (UA) 3+ (Negative); Ketones,Urine Negative (Negative); Leukocyte Esterase,Urine Negative (Negative); Nitrate,Urine Negative (Negative); Protein,Urine Negative (Negative); Urobilinogen,Urine 0.2 EU/dl (0.2)
[2024-03-07 09:54] LABS: Bacteria,Urine Trace /lpf; Creatinine,Urine Random 52 mg/dL (Not Estab.); WBC,Urine Occasional #/hpf (0-3); Yeast,Urine Occasional /lpf
[2024-03-07 09:57] LABS: Hematocrit 42.6 % (37.0-47.0); Hemoglobin 13.5 g/dL (12.2-16.2); Mean Corpuscular HGB Conc 31.7 g/dL (31.8-35.4); Mean Corpuscular Hemoglobin 31.4 pg (27.0-31.2); Mean Corpuscular Volume 99.1 fl (81-99); Platelet Count 301 K/mm3 (142-424); White Blood Count 4.4 K/mm3 (4.8-10.8)
[2024-03-07 10:42] LABS: Alanine Aminotransferase 21 U/L (12-78); Albumin Level 4.2 g/dl (3.5-5.0); Albumin/Globulin Ratio 1.8 (1.1-1.8); Alkaline Phosphatase 47 U/L (38-126); Anion Gap 7.6 mEq/L (5-15); Aspartate Amino Transferase 28 U/L (14-36); Bilirubin,Total 0.6 mg/dl (0.2-1.3); Blood Urea Nitrogen 25 mg/dl (7-17); Calcium 9.6 mg/dl (8.4-10.2); Carbon Dioxide 29 mmol/L (22.0-30.0); Chloride 102 mmol/L (98-107); Estimated Glomerular Filt Rate 37 ml/min (>60); GFR (African American) 45 ML/MIN (>60); Globulin 2.4 g/dL (1.3-3.2); Glucose 151 mg/dl (74-100); Phosphorous 3.1 mg/dl (2.5-4.5); Potassium 4.6 mmoL/L (3.5-5.1); Sodium 134 mmol/L (136-145); Total Protein,Serum 6.6 g/dl (6.3-8.2)
[2024-03-07 10:53] LABS: Intact Parathyroid Hormone 70.8 pg/mL (7.5-53.5)
[2024-03-07 10:59] LABS: 25-OH Vitamin D, Total 29.4 ng/mL (30-100)
== END 2024-03-07 23:59 | disposition home or self-care (01) ==
LOC: LAB 09:18
PROVIDERS: PCP Nurse Practitioner Family; Visit Provider Internal Medicine Nephrology
DX: N18.32 Chronic kidney disease, stage 3b (principal); E11.9 Type 2 diabetes mellitus without complications; I10 Essential (primary) hypertension; E21.3 Hyperparathyroidism, unspecified
CPT/HCPCS: 36415; 80053; 81001; 82306; 82570; 83970; 84100; 84156; 85027

== ENCOUNTER 2024-03-25 14:27 | Outpatient (CLI) | payer MEDICARE, SELFPAY ==
--- NOTE | 2024-03-25 14:32 | XR_ITS ---
FINAL REPORT CLINICAL HISTORY: fall, left shoulder pain COMPARISON: None FINDINGS: LEFT SHOULDER Three views of the left shoulder were obtained. There is no acute fracture or dislocation. Visualized joint spaces are normally aligned. Soft tissues are unremarkable. IMPRESSION: No acute bony abnormality. Reviewed, Interpreted and Dictated by Wiley Jacobo MD Transcribed by Rianna Umana Authenticated and [facility]
--- NOTE | 2024-03-25 14:32 | XR_ITS ---
FINAL REPORT CLINICAL HISTORY: fall, left arm pain COMPARISON: 12/18/2022 FINDINGS: LEFT HUMERUS Two views of the left humerus were obtained. There is no acute fracture or dislocation. The joint spaces are well-preserved. There is no acute soft tissue abnormality. IMPRESSION: No acute abnormality identified. Reviewed, Interpreted and Dictated by Wiley Jacobo MD Transcribed by Rianna Umana Authenticated and . [facility]
--- NOTE | 2024-03-25 14:32 | XR_ITS ---
FINAL REPORT CLINICAL HISTORY: fall, left elbow pain COMPARISON: 12/18/2022 FINDINGS: LEFT ELBOW 3 views of the left elbow were obtained. There is no acute fracture or dislocation. There are mild hypertrophic changes at the medial joint margin. No joint effusion is identified. There is no acute soft tissue abnormality. IMPRESSION: Degenerative changes without acute abnormality identified. Reviewed, Interpreted and Dictated by Wiley Jacobo MD Transcribed by Rianna Umana Authenticated and [facility]
== END 2024-03-25 23:59 | disposition home or self-care (01) ==
LOC: RAD 14:29
PROVIDERS: PCP Nurse Practitioner Family; Visit Provider Nurse Practitioner Family
DX: M25.512 Pain in left shoulder (principal); M79.622 Pain in left upper arm
CPT/HCPCS: 73030; 73060; 73080

== ENCOUNTER 2024-04-01 10:25 | Outpatient (CLI) | payer MEDICARE, SELFPAY ==
[2024-04-01 10:33] LABS: Adenovirus F 40/41, stool Not Detected (NotDetected); Astrovirus Not Detected (NotDetected); Campylobacter Not Detected (NotDetected); Clostridium Difficile A/B, PCR Not Detected (NotDetected); Cryptosporidium Not Detected (NotDetected); Cyclospora Cayetanesis Not Detected (NotDetected); Entamoeba histolytica Not Detected (NotDetected); Enteroaggregative E coli Not Detected (NotDetected); Enteropathogenic E coli Not Detected (NotDetected); Enterotoxigenic E coli Not Detected (NotDetected); Giardia lamblia Not Detected (NotDetected); Norovirus Not Detected (NotDetected); Plesimonas Shigalloides, PCR Not Detected (NotDetected); Rotavirus A Not Detected (NotDetected); Salmonella, PCR Not Detected (NotDetected); Sapovirus Not Detected (NotDetected); Shiga-like toxin E coli Not Detected (NotDetected); Shigella Enterovasive E coli Not Detected (NotDetected); Vibrio Cholerae Not Detected (NotDetected); Vibrio, PCR Not Detected (NotDetected); Yersinia Entercolitica, PCR Not Detected (NotDetected)
== END 2024-04-01 23:59 | disposition home or self-care (01) ==
LOC: LAB 10:26
PROVIDERS: PCP Nurse Practitioner Family; Visit Provider Nurse Practitioner Family
DX: R19.7 Diarrhea, unspecified (principal)
CPT/HCPCS: 87506

== ENCOUNTER 2024-05-13 12:51 | Outpatient (CLI) | payer MEDICARE, SELFPAY ==
--- NOTE | 2024-05-13 12:54 | XR_ITS ---
FINAL REPORT CLINICAL HISTORY: R foot/ankle pain after fall COMPARISON: None FINDINGS: RIGHT FOOT 3 views of the right foot were obtained. There is no acute fracture or dislocation. There is a small plantar calcaneal spur. Mild degenerative change is noted. There are vascular calcifications. Soft tissues are otherwise unremarkable. IMPRESSION: No acute bony abnormality. Reviewed, Interpreted and Dictated by Timothy Zapata III, MD Transcribed by Annalise Rizo Authenticated and [facility]
--- NOTE | 2024-05-13 12:54 | XR_ITS ---
FINAL REPORT CLINICAL HISTORY: R foot/ankle pain after fall COMPARISON: None FINDINGS: RIGHT ANKLE 3 views of the right ankle were obtained. There is no acute fracture or dislocation. The mortise is intact. There is mild degenerative change. Calcaneal spurs are noted. Soft tissue swelling is present. IMPRESSION: Soft tissue swelling without acute bony abnormality. Reviewed, Interpreted and Dictated by Timothy Zapata III, MD Transcribed by Annalise Rizo Authenticated and [facility]
--- NOTE | 2024-05-13 12:54 | XR_ITS ---
FINAL REPORT CLINICAL HISTORY: R foot/ankle pain after fall COMPARISON: None FINDINGS: Two views of the right tibia/fibula were obtained. There is no acute fracture or dislocation. The joint spaces are intact. There is no soft tissue abnormality. IMPRESSION: No acute process. Reviewed, Interpreted and Dictated by Timothy Zapata III, MD Transcribed by Annalise Rizo Authenticated and [facility]
== END 2024-05-13 23:59 | disposition home or self-care (01) ==
LOC: RAD 12:52
PROVIDERS: PCP Nurse Practitioner Family; Visit Provider Student in an Organized Health Care Education/Training Program
DX: M25.571 Pain in right ankle and joints of right foot (principal); M79.671 Pain in right foot
CPT/HCPCS: 73590; 73610; 73630

== ENCOUNTER 2024-05-16 17:04 | Outpatient (RCR) | payer MEDICARE, SELFPAY | END 2024-05-16 23:59 | disposition home or self-care (01) | LOC: PT 17:04 | PROVIDERS: Visit Provider Student in an Organized Health Care Education/Training Program | DX: M77.31 Calcaneal spur, right foot (principal); S99.911A Unspecified injury of right ankle, initial encounter | CPT/HCPCS: 97760 ==

== ENCOUNTER 2024-05-21 14:13 | Outpatient (CLI) | payer MEDICARE, SELFPAY ==
[2024-05-21 15:31] LABS: Anion Gap 11.9 mEq/L (5-15); Blood Urea Nitrogen 32 mg/dl (7-17); Calcium 9.5 mg/dl (8.4-10.2); Carbon Dioxide 26 mmol/L (22.0-30.0); Chloride 100 mmol/L (98-107); Chol/HDL Ratio 1.9 (1-3.5); Cholesterol 153 mg/dl (140-200); Estimated Glomerular Filt Rate 28 ml/min (>60); GFR (African American) 33 ML/MIN (>60); Glucose 193 mg/dl (74-100); HDL Cholesterol 80 mg/dl (40-60); Potassium 4.9 mmoL/L (3.5-5.1); Sodium 133 mmol/L (136-145); Triglycerides 196 mg/dl (30-150); VLDL Cholesterol 39 mg/dL (0-40)
[2024-05-21 15:41] LABS: Direct LDL Cholesterol 53.62 mg/dL (100-129)
[2024-05-21 19:26] LABS: Hemoglobin A1C 6.8 % (4.0-6.0)
== END 2024-05-21 23:59 | disposition home or self-care (01) ==
LOC: LAB 14:14
PROVIDERS: PCP Nurse Practitioner Family; Visit Provider Nurse Practitioner Family
DX: E11.69 Type 2 diabetes mellitus with other specified complication (principal); E78.2 Mixed hyperlipidemia
CPT/HCPCS: 36415; 80048; 80061; 83036

== ENCOUNTER 2024-05-27 08:28 | Outpatient (CLI) | payer MEDICARE, SELFPAY ==
[2024-05-27 08:34] LABS: Microscopic, Urine URINE MICROSCOPIC (MICROSCOPIC)
[2024-05-27 11:16] LABS: Appearance,Urine CLEAR (Clear); Bilirubin,Urine Negative (Negative); Blood, Urine Negative (Negative); Color,Urine YELLOW (Yellow); Glucose,Urine (UA) 3+ (Negative); Ketones,Urine Negative (Negative); Leukocyte Esterase,Urine TRACE (Negative); Nitrate,Urine Negative (Negative); PH,Urine 6.5 (5.0-8.5); Protein,Urine Negative (Negative); Specific Gravity, Urine <= 1.005 (1.005-1.030); Urobilinogen,Urine 0.2 EU/dl (0.2)
[2024-05-27 11:59] LABS: Bacteria,Urine Trace /lpf
== END 2024-05-27 23:59 | disposition home or self-care (01) ==
PROVIDERS: PCP Nurse Practitioner Family; Visit Provider Nurse Practitioner Family
DX: N18.30 Chronic kidney disease, stage 3 unspecified (principal); E11.69 Type 2 diabetes mellitus with other specified complication; I10 Essential (primary) hypertension; R39.89 Other symptoms and signs involving the genitourinary system
CPT/HCPCS: 81001; 87086; 87088; 87186

== ENCOUNTER 2024-06-18 09:50 | Outpatient (CLI) | payer MEDICARE, SELFPAY ==
[2024-06-18 10:06] LABS: Microscopic, Urine URINE MICROSCOPIC (MICROSCOPIC)
[2024-06-18 10:28] LABS: Appearance,Urine CLEAR (Clear); Basophils % 0.6 % (0.1-2.0); Bilirubin,Urine Negative (Negative); Blood, Urine Negative (Negative); Color,Urine YELLOW (Yellow); Eosinophils % 0.8 % (0.1-12.0); Glucose,Urine (UA) 3+ (Negative); Hematocrit 36.5 % (37.0-47.0); Ketones,Urine Negative (Negative); Leukocyte Esterase,Urine Negative (Negative); Lymphocytes # 1.6 K/mm3 (0.7-4.5); Lymphocytes % 32.9 % (10-50); Mean Corpuscular HGB Conc 32.9 g/dL (31.8-35.4); Mean Corpuscular Hemoglobin 29.7 pg (27.0-31.2); Mean Corpuscular Volume 90.3 fl (81-99); Mean Platelet Volume 9.8 fl (7.4-10.4); Monocytes # 0.4 K/mm3 (0.1-1.0); Monocytes % 7.2 % (1.7-9.3); Neutrophils # 2.8 K/mm3 (1.8-7.8); Neutrophils % 57.3 % (37.0-80.0); Nitrate,Urine Negative (Negative); Platelet Count 322 K/mm3 (142-424); Protein,Urine Negative (Negative); Red Blood Count 4.04 M/mm3 (4.20-5.40); Red Cell Distribution Width 12.7 % (11.5-17.5); Specific Gravity, Urine 1.015 (1.005-1.030); Urobilinogen,Urine 0.2 EU/dl (0.2); White Blood Count 4.8 K/mm3 (4.8-10.8)
[2024-06-18 10:41] LABS: Bacteria,Urine Trace /lpf; Squamous Epithelial Cell,Urine Occasional #/hpf (0-5)
[2024-06-18 10:54] LABS: Hemoglobin A1C 7.1 % (4.0-6.0)
[2024-06-18 10:59] LABS: Alanine Aminotransferase 23 U/L (12-78); Albumin Level 4.2 g/dl (3.5-5.0); Albumin/Globulin Ratio 2.2 (1.1-1.8); Alkaline Phosphatase 38 U/L (38-126); Anion Gap 14.6 mEq/L (5-15); Aspartate Amino Transferase 33 U/L (14-36); Bilirubin,Total 0.5 mg/dl (0.2-1.3); Blood Urea Nitrogen 41 mg/dl (7-17); Calcium 9.8 mg/dl (8.4-10.2); Carbon Dioxide 25 mmol/L (22.0-30.0); Chloride 98 mmol/L (98-107); Estimated Glomerular Filt Rate 28 ml/min (>60); GFR (African American) 33 ML/MIN (>60); Globulin 1.9 g/dL (1.3-3.2); Glucose 271 mg/dl (74-100); Potassium 5.6 mmoL/L (3.5-5.1); Sodium 132 mmol/L (136-145); Total Protein,Serum 6.1 g/dl (6.3-8.2); Uric Acid 4.7 mg/dl (2.5-6.2)
== END 2024-06-18 23:59 | disposition home or self-care (01) ==
LOC: LAB 09:51
PROVIDERS: PCP Nurse Practitioner Family; Visit Provider Internal Medicine Nephrology
DX: I12.9 Hypertensive chronic kidney disease with stage 1 through stage 4 chronic kidney disease, or unspecified chronic kidney disease (principal); N18.32 Chronic kidney disease, stage 3b; E11.9 Type 2 diabetes mellitus without complications; Z79.4 Long term (current) use of insulin; E21.3 Hyperparathyroidism, unspecified
CPT/HCPCS: 36415; 80053; 81001; 83036; 84550; 85025

== ENCOUNTER 2024-07-08 15:57 | Outpatient (CLI) | payer MEDICARE, SELFPAY | END 2024-07-08 23:59 | disposition home or self-care (01) | LOC: LAB.DROPOF 07-09 10:13 | PROVIDERS: PCP Nurse Practitioner Family; Visit Provider Nurse Practitioner Family | DX: J02.9 Acute pharyngitis, unspecified (principal) | CPT/HCPCS: 87070 ==

== ENCOUNTER 2024-07-15 21:35 | Outpatient (CLI) | payer MEDICARE, SELFPAY ==
[2024-07-15 22:24] LABS: Microscopic, Urine URINE MICROSCOPIC (MICROSCOPIC)
[2024-07-15 23:52] LABS: Appearance,Urine CLEAR (Clear); Bilirubin,Urine Negative (Negative); Blood, Urine Negative (Negative); Color,Urine YELLOW (Yellow); Glucose,Urine (UA) 2+ (Negative); Ketones,Urine Negative (Negative); Leukocyte Esterase,Urine 1+ (Negative); Nitrate,Urine Negative (Negative); PH,Urine 5.5 (5.0-8.5); Protein,Urine Negative (Negative); Specific Gravity, Urine <= 1.005 (1.005-1.030); Urobilinogen,Urine 0.2 EU/dl (0.2)
[2024-07-16 01:09] LABS: Bacteria,Urine 1+ /lpf; WBC,Urine 20-50 #/hpf (0-3)
== END 2024-07-15 23:59 | disposition home or self-care (01) ==
LOC: LAB 21:36
PROVIDERS: PCP Nurse Practitioner Family; Visit Provider Nurse Practitioner Family
DX: N39.0 Urinary tract infection, site not specified (principal); B96.89 Other specified bacterial agents as the cause of diseases classified elsewhere
CPT/HCPCS: 81001; 87086; 87088; 87186

== ENCOUNTER 2024-08-08 11:00 | Outpatient (RCR) | payer MEDICARE, SELFPAY ==
--- NOTE | 2024-07-17 08:42 | HMH.PTOPEV ---
PT Outpatient Evaluation Rehab PT Outpatient Evaluation Start: 07/16/24 18:58 Freq: Status: Active Protocol: Document 07/16/24 18:59 CHAVA (Rec: 07/17/24 08:40 CHAVA [id number]) E-signed By Parviz Henderson, PT Outpatient Therapy Subjective History Subjective History Patient is a 73 year old female presenting to outpatient PT reports of R foot/ankle pain secondary to a fall while getting out of a vehicle. Initial injury occurred 05/2024. No recent imaging to report. Comorbidities include hx of L RCT, HTN, HL and diabetes. New diagnosis of cancer in past 12 No months? Chief Complaint Pain,Stiff,Swelling,Gives out/ Unstable,Weakness Symptom Type Ache Symptoms Relieved By Rest/Positioning,Heat,Ice,OTC Meds Symptoms Aggravated By Standing,Physical Activity, Walking Prior Functional Limitations None Current Functional Limitations Housework,Standing,Walking, Stairs,Balance Symptom Description Constant but Variable Level of pain today (0-10) 3 Pain scale - at its best (0-10) 3 Pain scale - at its worst (0-10) 8 Ankle/Foot Eval Gait Observation General Gait Pattern Observation Antalgic Gait,Decrease Weight Bear (R) Palpation Tenderness right ATF TTP positive Deltoid ligament TTP positive ROM Ankle/Foot Dorsiflexion w/Knee Extended -5 Active Range Motion (degrees) Ankle/Foot Plantar Flexion Active Range WNL of Motion (degrees) Ankle/Foot Eversion Active Range of 11 Motion (degrees) Ankle/Foot Inversion Active Range of 26 Motion (degrees) Ankle/Foot ROM Limitations Soft Tissue Tightness Great Toe ROM Reason Not Measured Within Functional Limits MMT Ankle Dorsiflexion Strength Grade 5 Normal Ankle Plantarflexion Strength Grade 5 Normal Foot Eversion Strength Grade 4- Good- Foot Inversion Strength Grade 4- Good- Special Tests Ankle Anterior Drawer Test Negative Right Talar Tilt Test Negative Right Foot Interdigital Neuroma Test Negative Right Lower Extremity Functional Index Activities Today, do you or would you have any difficulty at all with: a.Any of your usual work, housework or A little bit of difficulty school activities b. Your usual hobbies, recreational or Moderate difficulty sporting activities c. Getting into or out of the bath A little bit of difficulty d. Walking between rooms A little bit of difficulty e. Putting on your shoes or socks Moderate difficulty f. Squatting Extreme difficulty or unable to perform activity g. Lifting an object, like a bag of A little bit of difficulty groceries from the floor h. Performing light activities around A little bit of difficulty your home i. Performing heavy activities around Moderate difficulty your home j. Getting into or out of a car Quite a bit of difficulty k. Walking 2 blocks Quite a bit of difficulty l. Walking a mile Extreme difficulty or unable to perform activity m. Going up or down 10 stairs (about 1 Quite a bit of difficulty flight of stairs) n. Standing for 1 hour Quite a bit of difficulty o. Sitting for 1 hour Quite a bit of difficulty p. Running on even ground Extreme difficulty or unable to perform activity q. Running on uneven ground Extreme difficulty or unable to perform activity r. Making sharp turns while running fast Extreme difficulty or unable to perform activity s. Hopping Extreme difficulty or unable to perform activity t. Rolling over in bed Moderate difficulty LEFI Score Lower Extremity Functional Index Score 28 Outpatient Therapy Assessment Impairments Problems/Impairmments Palpation Tenderness,Impaired Range of Motion,Impaired Strength,Impaired Gait Pattern ,Impaired Walking,Impaired Standing,Impaired Household Care,Impaired Stair Climbing, Impaired Incline Stepping, Impaired Stepping on Uneven Surface,Subjective C/O Pain Prognosis Rehab Potential Good Clinical Impression Consistent with Diagnosis Yes Short Term Goals Number of Weeks 2 Decrease Subjective C/O Pain Yes: 5/10 at worst Patient to be Ind w/ HEP Yes [place] Goals Number of Weeks 4-6 Decreased Palpation Tenderness Yes: 1/4 Increase Range of Motion Yes: WNL Increase Strength Yes: 5/5 Increase Ability to Walk Yes: 45 min without difficulty Increase Ability to Stand Yes Improve Ability For Household Care Yes Improve Ability to Climb Stairs Yes: 1 flight up/down without difficulty Improve LEFI Score Yes: >60 Decrease Subjective C/O Pain Yes: 2/10 at worst Outpatient Therapy Plan of Care Treatment Plan May Include Therapeutic Exercise Including Home Yes Exercise Program Manual Therapy Techniques Yes Neuromuscular Re-education Yes Therapeutic Activities to Return to Yes Previous Functional/Work Level Gait Training Yes ADL/Self Care Education Yes Dry Needling Yes Thermal Modalities Yes Electrical Stimulation Yes Ultrasound/Phonophoresis Yes Iontophoresis Yes Orthotics/Bracing/Splinting Yes Vasopneumatic Compression Pump Yes Massage Yes Manual Lymphatic Drainage Yes Eval/Re-Eval Yes Frequency Times per week 2-3 Duration Number of Weeks 4-6 Addendums This patient is a candidate for social No or vocational rehab? Patient/Guardian verbally acknowledges Yes understanding of treatment program and consents to further treatment? Patient/Guardian verbally acknowledges Yes understanding of diagnosis, prognosis and goals for treatment? Eval Complexity PT Charges 32717 - Moderate Complexity Shoulder/Elbow Eval Shoulder Objective Measurements Elbow Objective Measurements PHYSICIAN CERTIFICATION: I certify the specified therapy services for Nichole Morales are required, authorized, and reviewed every 30 days.
== END 2024-08-08 23:59 | disposition home or self-care (01) ==
LOC: PT 11:00
PROVIDERS: PCP Nurse Practitioner Family; Visit Provider Podiatrist
DX: M25.571 Pain in right ankle and joints of right foot (principal); S93.491A Sprain of other ligament of right ankle, initial encounter
CPT/HCPCS: 97035; 97110; 97163; 97530

== ENCOUNTER 2024-08-13 09:23 | Outpatient (CLI) | payer MEDICARE, SELFPAY ==
[2024-08-13 09:43] LABS: Microscopic, Urine URINE MICROSCOPIC (MICROSCOPIC)
[2024-08-13 10:12] LABS: Basophils % 0.7 % (0.1-2.0); Eosinophils % 0.7 % (0.1-12.0); Hematocrit 36.8 % (37.0-47.0); Hemoglobin 11.9 g/dL (12.2-16.2); Lymphocytes # 1.9 K/mm3 (0.7-4.5); Lymphocytes % 44.5 % (10-50); Mean Corpuscular HGB Conc 32.3 g/dL (31.8-35.4); Mean Corpuscular Volume 89.8 fl (81-99); Mean Platelet Volume 9.9 fl (7.4-10.4); Monocytes # 0.4 K/mm3 (0.1-1.0); Monocytes % 10.1 % (1.7-9.3); Neutrophils # 1.9 K/mm3 (1.8-7.8); Neutrophils % 42.9 % (37.0-80.0); Platelet Count 306 K/mm3 (142-424); Red Cell Distribution Width 13.6 % (11.5-17.5); White Blood Count 4.4 K/mm3 (4.8-10.8)
[2024-08-13 10:21] LABS: Appearance,Urine CLEAR (Clear); Bilirubin,Urine Negative (Negative); Blood, Urine Negative (Negative); Color,Urine YELLOW (Yellow); Glucose,Urine (UA) 3+ (Negative); Ketones,Urine Negative (Negative); Leukocyte Esterase,Urine Negative (Negative); Nitrate,Urine Negative (Negative); PH,Urine 7.5 (5.0-8.5); Protein,Urine Negative (Negative); Urobilinogen,Urine 0.2 EU/dl (0.2)
[2024-08-13 10:39] LABS: Blood Urea Nitrogen 26 mg/dl (7-17); Calcium 9.5 mg/dl (8.4-10.2); Carbon Dioxide 24 mmol/L (22.0-30.0); Chloride 100 mmol/L (98-107); Chol/HDL Ratio 1.4 (1-3.5); Cholesterol 126 mg/dl (140-200); Estimated Glomerular Filt Rate 32 ml/min (>60); GFR (African American) 38 ML/MIN (>60); Glucose 116 mg/dl (74-100); HDL Cholesterol 91 mg/dl (40-60); Sodium 135 mmol/L (136-145); Triglycerides 81 mg/dl (30-150); VLDL Cholesterol 16 mg/dL (0-40)
[2024-08-13 10:51] LABS: Bacteria,Urine Trace /lpf; Squamous Epithelial Cell,Urine Occasional #/hpf (0-5); WBC,Urine Occasional #/hpf (0-3)
[2024-08-13 10:52] LABS: Direct LDL Cholesterol < 30.00 mg/dL (100-129); Hemoglobin A1C 6.8 % (4.0-6.0)
[2024-08-13 10:56] LABS: 25-OH Vitamin D, Total 46.5 ng/mL (30-100)
== END 2024-08-13 23:59 | disposition home or self-care (01) ==
LOC: LAB 09:25
PROVIDERS: PCP Nurse Practitioner Family; Visit Provider Nurse Practitioner Family
DX: E11.22 Type 2 diabetes mellitus with diabetic chronic kidney disease (principal); N18.30 Chronic kidney disease, stage 3 unspecified; D64.9 Anemia, unspecified; E78.2 Mixed hyperlipidemia; R39.89 Other symptoms and signs involving the genitourinary system; B37.31 Acute candidiasis of vulva and vagina; N32.81 Overactive bladder; R33.9 Retention of urine, unspecified; R53.83 Other fatigue; E55.9 Vitamin D deficiency, unspecified
CPT/HCPCS: 36415; 80048; 80061; 81001; 82306; 83036; 85025; 87086

== ENCOUNTER 2024-08-27 08:00 | Outpatient (RCR) | payer MEDICARE, SELFPAY ==
--- NOTE | 2024-08-15 11:58 | HMH.RHREAS ---
Rehab Reassessment Rehab OP Re-assessment Start: 08/15/24 08:07 Freq: Status: Active Protocol: Document 08/15/24 11:47 PHORNE (Rec: 08/15/24 11:58 PHORNE [id number]) E-signed By Vincenzo Brown, PT Lower Extremity Functional Index Activities Today, do you or would you have any difficulty at all with: a.Any of your usual work, housework or A little bit of difficulty school activities b. Your usual hobbies, recreational or A little bit of difficulty sporting activities c. Getting into or out of the bath No difficulty d. Walking between rooms A little bit of difficulty e. Putting on your shoes or socks Moderate difficulty f. Squatting Moderate difficulty g. Lifting an object, like a bag of A little bit of difficulty groceries from the floor h. Performing light activities around No difficulty your home i. Performing heavy activities around A little bit of difficulty your home j. Getting into or out of a car A little bit of difficulty k. Walking 2 blocks Moderate difficulty l. Walking a mile Moderate difficulty m. Going up or down 10 stairs (about 1 A little bit of difficulty flight of stairs) n. Standing for 1 hour Moderate difficulty o. Sitting for 1 hour A little bit of difficulty p. Running on even ground Moderate difficulty q. Running on uneven ground Moderate difficulty r. Making sharp turns while running fast Moderate difficulty s. Hopping Quite a bit of difficulty t. Rolling over in bed Moderate difficulty LEFI Score Lower Extremity Functional Index Score 51 Rehab Re-assessment Subjective Subjective Pt reports minimal ankle/foot pain at beginning of session but states pain can get up to 4-5/10 with walking and standing activities. Pt reports she has been experiencing a popping sensation on the medial side of her right leg just below her knee when she bends over to don her shoes or her brace. Pt states it is somewhat painful but resolves some with rest. Pt also states she has been icing the area but that does not seem to relieve the pain. Objective Objective Notes AROM R ankle (in deg): DF= 0-5 , PF= 0-38, INV= 0-38, EVER= 0 -20. MMT R ankle: DF 5/5, PF 5/5, INV 4+/5, EVER 4+/5. LEFS: IE score was 28 vs 51 this date. Gait: pt ambulates with mildly antalgic gait pattern on the R LE during stance phase of gait. TTP: 2/4 medial R ankle around post tib tendon and flexor digitorum tendon Assessment Progress Assessment Progressing as Expected Assessment Notes Pt has shown significant improvement in AROM of the R ankle and increased strength in the R ankle, but continues to have pain with prolonged standing/walking activity and now more tenderness to palpation on the medial side of the R ankle. Skilled therapy remains indicated to reduce pain, further improve ROM and strength in an effort to return pt to PLOF. Patient goals met ST/2 LT/9 Plan Plan Continue per initial POC. Frequency of Therapy 2 x/wk Duration of therapy 4 wks Time and Billing Re-Eval Time 13 Re-Eval Billing Units 0 Charge for PT reassessment? No PHYSICIAN CERTIFICATION: I certify the specified therapy services for Nichole Morales are required, authorized, and reviewed every 30 days.
== END 2024-08-27 23:59 | disposition home or self-care (01) ==
LOC: PT 08:00
PROVIDERS: PCP Nurse Practitioner Family; Visit Provider Podiatrist
DX: S86.311A Strain of muscle(s) and tendon(s) of peroneal muscle group at lower leg level, right leg, initial encounter (principal); S93.621A Sprain of tarsometatarsal ligament of right foot, initial encounter; S93.491A Sprain of other ligament of right ankle, initial encounter
CPT/HCPCS: 97110; 97530

== ENCOUNTER 2024-09-05 12:14 | Observation (INO) | payer MEDICARE, SELFPAY ==
[2024-09-05] VITALS (9 sets, daily range): BP systolic 140–185; BP diastolic 60–73; PULSE 58–69; RESP 12–18; TEMP 36.6–37.2; O2SAT 96–100; BMI 35.9; BMI 35.4
--- NOTE | 2024-09-05 12:22 | ECG_ITS ---
APPROVED REPORT Exam: Resting ECG HR:59 bpm ECG Measurements Heart Rate 59 AXES UT 196 P 67 QRSd 86 QRS -13 QT 446 T 65 QTc 445 Conclusion SINUS BRADYCARDIA LOW QRS VOLTAGE IN PRECORDIAL LEADS [QRS DEFLECTION < 1.0 mV IN CHEST LEADS] No STEMI Electronically signed by : EBENEZER TRACY, 09/05/2024 16:16:43
--- NOTE | 2024-09-05 12:27 | ED_ITS ---
<Statement entered by Lu Shaikh DO - 09/05/24 16:09> I was consulted by the TORIN, and we discussed the complexity of the problems being addressed. I approved the treatment and management plan for this patient's care in the emergency department, thus performing a substantive portion of the medical decision making. Lu Shaikh DO Discharge Plan Disposition Patient Disposition: Admitted Condition: Fair Clinical Impressions Clinical Impression: Elevated brain natriuretic peptide (BNP) level, Uncontrolled hypertension Chest pain Qualifiers: Chest pain type: unspecified Qualified Code(s): R07.9 - Chest pain, unspecified Discharge ED Provider: Lu Shaikh HPI <BRADY Beltran - Last Filed: 09/05/24 21:24> General Chief Complaint: Chest Pain Stated Complaint: chest pain Time Seen by Provider: 09/05/24 12:27 Mode of Arrival: Ambulatory Source of Information: Patient Description of Symptoms (Recalled from ER Triage Doc. by RN): Pt presents for evaluation of chest pain that started yesterday morning. Pt states states her chest pain has been intermittent, rates it as a 5/10, and is tight in nature. Pt is also concerned about her BP, pt states her BP was 216/69. Pt states she took her BP meds and 1 nitroglycerin at 1030 today. Pt states it helped ease her chest tightness. Pt is also concered Pt has a hx of open heart surgery, stent placement, and NSTEMI History of Present Illness HPI narrative: Patient presents for evaluation of chest pain. Patient gives a history of 2 weeks of increasing chest pain that has been intermittent up till the last 24 to 48 hours. Patient also has noted that she has had increasing high blood pressure and today noticed that her blood pressure was over 200 systolic. Patient took a nitroglycerin tablet which made her chest pain better but did not go completely away. Patient has been having chest pain continuously since and she awoke at 7 this morning. Patient does have a significant cardiovascular history with a history of coronary artery bypass graft and multiple stents. She denies fever chills hemoptysis hematochezia melena nausea vomiting diarrhea. Related Data Home Medications ?Medication ?Instructions ?Recorded ?Confirmed milnacipran 50 mg tablet (Savella) 50 mg PO BID 02/28/23 09/05/24 depression/fibromyalgia nitroglycerin 0.4 mg sublingual 0.4 mg sublingual Q5-15M PRN Chest 03/09/23 09/05/24 tablet Pain clopidogrel 75 mg tablet 75 mg PO DAILY 09/21/23 09/05/24 calcitriol 0.25 mcg capsule 0.25 mcg PO Q OTHER DAY 12/07/23 09/05/24 fluticasone propionate 50 1 spray intranasal DAILY PRN 01/09/24 09/05/24 mcg/actuation nasal ALLERGIES spray,suspension (Allergy Relief (fluticasone)) cholecalciferol (vitamin D3) 25 25 mcg PO DAILY 03/25/24 09/05/24 mcg (1,000 unit) capsule magnesium oxide 400 mg PO DAILY Supplement 03/25/24 09/05/24 escitalopram oxalate 20 mg tablet 20 mg PO DAILY 08/22/24 09/05/24 evolocumab 140 mg/mL subcutaneous 140 mg SQ Q2W 08/22/24 09/05/24 pen injector (Conchita SureIsaacick) furosemide 20 mg tablet 20 mg PO Q OTHER DAY 08/22/24 09/05/24 pantoprazole 40 mg tablet,delayed 40 mg PO DAILY 08/22/24 09/05/24 release ranolazine 1,000 mg 1,000 mg PO BID 08/22/24 09/05/24 tablet,extended release,12 hr azelastine 137 mcg (0.1 %) nasal 1 spray intranasal BIDP PRN 09/05/24 09/05/24 spray Allergy Symptoms insulin human U-100 NPH-regulr 31 unit SQ BID Diabetes 09/05/24 09/05/24 70-30 mix 100 unit/mL subcutaneous susp (Novolin 70/30 U-100 Insulin) nystatin 100,000 unit/mL oral 500,000 unit PO QIDP PRN yeast 09/05/24 09/05/24 suspension flare up Previous Rx's ?Medication ?Instructions ?Recorded empagliflozin 10 mg tablet 10 mg PO DAILY Diabetes #90 tabs 09/09/23 (Jardiance) ezetimibe 10 mg tablet 10 mg PO DAILY Cholesterol 90 days 09/21/23 #90 tabs levocetirizine 5 mg tablet (Xyzal) 5 mg PO HS #90 tabs 11/07/23 flash glucose sensor (FreeStyle #6 ea 11/28/23 Mounika 14 Day Sensor kit) fenofibrate nanocrystallized 145 145 mg PO DAILY #90 tabs 02/22/24 mg tablet isosorbide mononitrate 60 mg 60 mg PO BID #180 tabs 05/20/24 tablet,extended release 24 hr estradiol 0.01% (0.1 mg/gram) See Rx Instructions vaginal 06/24/24 vaginal cream .COMPLEX #42.5 grams oxybutynin chloride 5 mg tablet 5 mg PO DAILY #90 tabs 07/08/24 bisoprolol fumarate 5 mg tablet 5 mg PO BID #60 tabs 07/31/24 pregabalin 25 mg capsule 25 mg PO HS #30 caps 08/22/24 Allergies Allergy/AdvReac Type Severity Reaction Status Date / Time Dnhdrwz-PLA-ElY Reductase Allergy Severe Unknown Verified 08/29/24 10:44 Inhibitor (Ahfkooq-Ulb-Nxj allergy Reductase Inhibitor) reaction Penicillins Allergy Intermediate I-RASH Verified 08/29/24 10:44 losartan Allergy Mild Verified 08/29/24 10:44 cefuroxime (From Ceftin) Allergy Unknown Verified 08/29/24 10:44 allergy reaction hydrocodone AdvReac Verified 08/29/24 10:44 [facility] <BRADY Beltran - Last Filed: 09/05/24 21:24> [facility] Disclaimer: The information contained in this section may have been updated after the patient was seen, as this information can be updated by other users. Medical History (Updated 09/05/24 @ 19:02 by Lance Brewer APRN) BMI 34.0-34.9,adult Neck pain Radicular pain in left arm Right-sided chest wall pain Bloating RLQ abdominal pain Acute gastroenteritis Left elbow pain Left upper arm pain Left shoulder pain Superior labrum efbguzbw-rt-vphzjwbdi (SLAP) tear of left shoulder Effusion of shoulder joint, left Traumatic tear of supraspinatus tendon of left shoulder Traumatic ecchymosis of ankle Sprain of tarsometatarsal ligament of right foot Right ankle injury Pseudomonas urinary tract infection Edema of right lower extremity High ankle sprain of right lower extremity Yeast infection of the skin Hematoma Right otitis media UTI (urinary tract infection) Vaginal yeast infection Metallic taste Thrush, oral Acute effusion of both middle ears URI (upper respiratory infection) Burping Nausea Secondary hyperparathyroidism Hoarseness Dysphagia Constipation, unspecified Abdominal pain Fatigue Neck pain on right side Urinary tract infection symptoms Pharyngitis Sinusitis Rib pain on left side Right upper quadrant pain Left breast mass H/O malignant neoplasm of breast Edema of both lower extremities Frequent falls Contusion of left upper arm Head injury Contusion of knee, left Contusion of elbow, left Skin tear of left hand without complication Dehydration, mild Kidney failure Sinusitis Labile blood pressure Typical angina Fall Syncope Dyspnea Typical angina Gallstones Discharge from left nipple Breast CA Dizziness Chest pain Breast cancer in female Extrapyramidal disorder Restless sleeper Daytime somnolence Abnormal cardiovascular stress test Atypical angina Chest pain Angina pectoris Diastolic dysfunction Edema Surgical History History of lumpectomy of left breast History of esophagogastroduodenoscopy (EGD) H/O thumb surgery H/O tubal ligation History of colonoscopy History of breast biopsy History of coronary artery bypass graft x 1 Stented coronary artery Family History Mother , at age 68 Congestive heart failure Crohn's disease Father , at age 84 Hypertension Cancer lung and colon ca Sister Diabetes Coronary artery disease Sister Cancer breast Diabetes Brother Coronary artery disease Grandmother Cancer paternal grandmother-colon ca Other No significant family history Social History (Updated 09/05/24 @ 17:35 by Мария Linares RN) Smoking Status: Never smoker second hand exposure: Yes alcohol intake: never counseling provided: none substance use type: denies use current occupational status: retired Travel in the last 8 weeks: None household members: spouse housing: house marital status: number of children: 4 current occupational exposures/hazards: No caffeine: Yes do you feel safe at home: Yes victim of physical abuse: No victim of emotional abuse: No victim of sexual abuse: No would you like helpful sources: No Have you lived/traveled outside [place] in past 30 days?: No Contact w/someone who lives/traveled outside [place] past 30 days?: No Exposure to someone with infectious disease in past 14 days?: No Do you have a fever (greater than 100.4 F or 38 C)?: No Have you tested positive for COVID-19: No Exposed to someone with COVID-19 in past 14 days?: No Do you have a sore throat?: No Do you have a cough?: No Do you have any weakness?: No Are you experiencing any nausea/vomitting?: Yes Do you have any diarrhea?: No Are you experiencing any unusual bleeding?: No Do you have any muscle aches/pain?: No Do you have any abdominal pain?: No Are you experiencing loss of taste or smell?: No Other Medical History Have you received the Flu Vaccine for this season: Yes Have you received the Pneumonia Vaccine: Yes <BRADY Beltran - Last Filed: 09/05/24 21:24> ROS Obtained: Yes Systems reviewed as appropriate & no additional complaints except as documented Physical Exam <BRADY Beltran - Last Filed: 09/05/24 21:24> General General appearance: alert and in no apparent distress Respiratory Respiratory exam: Present normal lung sounds bilaterally Cardiovascular Cardiovascular exam: Present regular rate Neurological Exam Neurological exam: Present alert and oriented X3 HEART Score <BRADY Beltran - Last Filed: 09/05/24 21:24> HEART Score HEART Score assessment performed?: Yes History (anamnesis): Moderately suspicious ECG: Non-specific disturbance Age: >65 years Risk factors: Atherosclerosis history Troponin: </= normal limit HEART Score: 6 Critical Care <BRADY Beltran Last Filed: 09/05/24 21:24> Critical Care Time Critical Care Time: Yes Attestation: On 09/05/24, the high probability of a clinically significant, sudden or life threatening deterioration of the following system(s) required my full and direct attention, intervention and personal management. The time I documented below is in addition to time spent performing reported procedures but includes the following listed in this critical care notation. Total Time Total Critical Care Time: 35 Medical Decision Making <BRADY Beltran - Last Filed: 09/05/24 21:24> Medical Records Medical records reviewed: Yes I reviewed the patient's medical records. Mitch Inquiry Pt receiving controlled substance: No Vital Signs Vital Signs: 09/05/24 12:15 09/05/24 13:31 09/05/24 14:00 Temperature 98 F Temperature Source Oral Pulse Rate 59 L Pulse Rate [Right] 69 Respiratory Rate 18 14 Blood Pressure 165/66 H 164/63 H Blood Pressure [Right Arm] 174/64 H Blood Pressure Mean 96 Blood Pressure Mean [Right Arm] 100 Blood Pressure Source [Right Arm] Manual Cuff/ Palpation Blood Pressure Position [Right Arm] Sitting 02 Sat by Pulse Oximetry 100 99 Oxygen Delivery Method Room Air 09/05/24 14:30 09/05/24 15:00 09/05/24 15:30 Temperature Temperature Source Pulse Rate 58 L 58 L 60 Pulse Rate [Right] Respiratory Rate 12 17 16 Blood Pressure 148/60 H 153/68 H 156/63 H Blood Pressure [Right Arm] Blood Pressure Mean Blood Pressure Mean [Right Arm] Blood Pressure Source [Right Arm] Blood Pressure Position [Right Arm] 02 Sat by Pulse Oximetry 99 97 98 Oxygen Delivery Method Room Air 09/05/24 16:30 Temperature 98.0 F Temperature Source Oral Pulse Rate 60 Pulse Rate [Right] Respiratory Rate 16 Blood Pressure 183/73 H Blood Pressure [Right Arm] Blood Pressure Mean Blood Pressure Mean [Right Arm] Blood Pressure Source [Right Arm] Blood Pressure Position [Right Arm] 02 Sat by Pulse Oximetry Oxygen Delivery Method Room Air Lab Data Lab results reviewed: Yes I reviewed the patient's lab results. Labs: Lab Results 09/05/24 12:47: WBC 5.0, RBC 4.34, Hgb 12.8, Hct 38.9, MCV 89.6, MCH 29.5, MCHC 32.9, RDW 13.2, Plt Count 280, MPV 9.7, Neut % (Auto) 47.2, Lymph % (Auto) 41.0, Divide % (Auto) 9.4 H, Eos % (Auto) 1.0, Baso % (Auto) 0.6, Neut # (Auto) 2.4, Lymph # (Auto) 2.0, Divide # (Auto) 0.5, Eos # (Auto) 0.1, Baso # (Auto) 0.0, PT 11.2, INR 1.00, D-Dimer 0.33, Sodium 136, Potassium 4.4, Chloride 99, Carbon Dioxide 27, Anion Gap 14.4, BUN 24 H, Creatinine 1.90 H, Estimated Creat Clear 39, Estimated GFR 26 L, Est GFR ( Amer) 31 L, Glucose 125 H, Calcium 9.8, Magnesium 2.3, Total Bilirubin 0.5, AST 31, ALT 23, Alkaline Phosphatase 43, Troponin I < 0.01, NT-Pro-B Natriuret Pep 1390 H, Total Protein 7.1, Albumin 4.6, Globulin 2.5, Albumin/Globulin Ratio 1.8, Procalcitonin 0.044, SARS-CoV-2 (PCR) Not detected, Influenza A Untype (PCR) Not detected, Influenza Type B (PCR) Not detected 09/05/24 15:10: Troponin I < 0.01 09/05/24 12:47 09/05/24 12:47 Response Orders (Tests/Meds): ED MEDICATIONS Generic Name Dose Route Start Last Admin Trade Name Freq PRN Reason Stop Dose Admin Acetaminophen 650 mg 09/05/24 17:03 09/05/24 21:10 Acetaminophen 325mg Tab PO 10/05/24 17:02 650 mg Q4HP PRN Administration Fever or Mild Pain (1-3) Aspirin 325 mg 09/05/24 17:07 09/05/24 17:46 Aspirin 325mg Tablet PO 09/05/24 17:08 325 mg ONCE ONE Administration Bisoprolol Fumarate 5 mg 09/05/24 21:00 09/05/24 21:09 Bisoprolol 5mg Tablet PO 10/05/24 20:59 5 mg BID BR[facility]TON Administration Clopidogrel Bisulfate 75 mg 09/06/24 09:00 Clopidogrel 75mg Tab PO 10/06/24 08:59 DAILY BR[facility]TON Escitalopram Oxalate 20 mg 09/06/24 09:00 Escitalopram 20mg Tablet PO 10/06/24 08:59 DAILY [facility] Insulin Human Lispro 0 unit 09/05/24 21:00 09/05/24 21:09 Humalog 100 Units/Ml 10ml Vial (Ssi) SUBCUT 10/05/24 20:59 2 unit ACHS BRITTON Administration Protocol Isosorbide Mononitrate 60 mg 09/05/24 21:00 09/05/24 21:10 Isosorbide Divide 60mg Tab.Er.24h PO 10/05/24 20:59 60 mg BID BRITTON Administration Non-Formulary Medication 1,000 mg 09/05/24 21:00 09/05/24 21:11 Ranolazine PO 10/05/24 20:59 1,000 mg BID BRITTON Administration Ondansetron HCl 4 mg 09/05/24 17:03 Ondansetron 4mg/2ml Vial IV 10/05/24 17:02 Q8HP PRN Nausea Oxybutynin Chloride 5 mg 09/06/24 09:00 Oxybutynin 5mg Tab PO 10/06/24 08:59 DAILY BR[facility]TON Pantoprazole Sodium 40 mg 09/06/24 09:00 Pantoprazole 40mg Tablet PO 10/06/24 08:59 DAILY [facility] Pregabalin 25 mg 09/05/24 21:00 09/05/24 21:09 Pregabalin 25mg Capsule PO 10/05/24 20:59 25 mg HS BRITTON Administration Discontinued Medications Generic Name Dose Route Start Last Admin Trade Name Guyq PRN Reason Stop Dose Admin Acetaminophen 1,000 mg 09/05/24 12:27 09/05/24 12:48 Acetaminophen 500mg Tab PO 09/05/24 12:28 1,000 mg ONCE ONE Administration Hydralazine HCl 25 mg 09/05/24 14:41 09/05/24 15:16 Hydralazine Hcl 25mg Tablet PO 09/05/24 14:42 25 mg ONCE ONE Administration Isosorbide Dinitrate 20 mg 09/05/24 14:41 09/05/24 15:56 Isosorbide Dinitrate 20 Mg Tablet PO 09/05/24 14:42 Not Given ONCE ONE Ketorolac Tromethamine 15 mg 09/05/24 12:27 09/05/24 12:48 Ketorolac 30mg/Ml Vial IV 09/05/24 12:28 15 mg ONCE ONE Administration Ondansetron HCl 4 mg 09/05/24 12:27 09/05/24 12:47 Ondansetron 4mg/2ml Vial IV 09/05/24 12:28 4 mg ONCE ONE Administration ORDERS Category Date Time Status Consult to Cardiology [CONS] Routine Cons 09/05/24 13:47 Active Chest XR 2 view (NOT portable) [XR chest 2V] Stat Exams 09/05/24 12:27 Completed BNP [NT Pro Brain Natriuretic Pep.] Stat Lab 09/05/24 12:47 Completed CBC w/Auto Diff [Complete Blood Count Auto Diff] Stat Lab 09/05/24 12:47 Completed CMP [Comprehensive Metabolic Panel] Stat Lab 09/05/24 12:47 Completed D-Dimer Stat Lab 09/05/24 12:47 Completed INR [Prothrombin Time INR] Stat Lab 09/05/24 12:47 Completed Magnesium Stat Lab 09/05/24 12:47 Completed Procalcitonin Stat Lab 09/05/24 12:47 Completed Rapid PCR Covid and Flu A/B Stat Lab 09/05/24 12:47 Completed Trop I [Troponin I] Stat Lab 09/05/24 12:47 Completed Troponin I Q3H Lab 09/05/24 15:10 Completed Troponin I Q3H Lab 09/05/24 18:54 Completed CA echo doppler complete Stat Y 09/05/24 14:11 Completed MDM Narrative Medical Decision Narrative: In summary patient is a 73-year-old female who presents to the emergency department for evaluation of chest pain. Patient is hypertensive on arrival with a blood pressure 174/64 pulse 69 with normal sinus rhythm on the bedside monitor breathing 18 times a minute satting 100% on room air upon arrival, afebrile at 98. Physical exam reveals clear breath sounds without increased work of breathing adventitious sounds or accessory muscle use, no reproducible chest pain on palpation, normal heart sounds S1-S2 without murmurs gallops rubs or thrills and no dependent edema noted. Abdomen soft nontender no rebound or guarding or rigidity.. Differential diagnosis includes ACS versus CHF versus hypertensive cardiomyopathy versus. Initial workup will be conducted with hematologic labs twelve-lead EKG plain film chest x-ray. Initial interventions include Toradol Tylenol Zofran. Initial workup reviewed by me and her hematologic labs are significant for normal white count normal H&H no neutrophilic shift, D-dimer 0.33 ruling out PE, slightly worsening renal function with a creatinine of 1.9 BUN of 24 and a GFR of 26 normal magnesium of 2.3 and undetectable troponin of 0.01 and elevated NT proBNP of 1390 procalcitonin is 0.044 negative COVID and flu swabs twelve-lead EKG that shows sinus bradycardia without evidence of ACS and my informal interpretation of her plain film chest x-ray shows no acute processes prior to radiology read. Please see final report for official interpretation.. Upon repeat evaluation patient reported improvement in her chest pain but it was still present.. Given this I consulted cardiology for their review and recommendation on patient management inpatient or outpatient. Cardiology came and saw the patient in the emergency department ordered a echo. Patient's second troponin was undetectable however given review of the patient's symptoms cardiology wishes to admit for heart cath tomorrow. Given that I had interactive discussion with hospital medicine regarding patient BARRERA findings and patient management and she will be admitted for further evaluation and care. <Lu Quan Shaikh, DO - Last Filed: 09/05/24 14:44> Vital Signs Vital Signs: 09/05/24 12:15 09/05/24 13:31 09/05/24 14:00 Temperature 98 F Temperature Source Oral Pulse Rate 59 L Pulse Rate [Right] 69 Respiratory Rate 18 14 Blood Pressure 165/66 H 164/63 H Blood Pressure [Right Arm] 174/64 H Blood Pressure Mean 96 Blood Pressure Mean [Right Arm] 100 Blood Pressure Source [Right Arm] Manual Cuff/ Palpation Blood Pressure Position [Right Arm] Sitting 02 Sat by Pulse Oximetry 100 99 Oxygen Delivery Method Room Air 09/05/24 14:30 09/05/24 15:00 09/05/24 15:30 Temperature Temperature Source Pulse Rate 58 L 58 L 60 Pulse Rate [Right] Respiratory Rate 12 17 16 Blood Pressure 148/60 H 153/68 H 156/63 H Blood Pressure [Right Arm] Blood Pressure Mean Blood Pressure Mean [Right Arm] Blood Pressure Source [Right Arm] Blood Pressure Position [Right Arm] 02 Sat by Pulse Oximetry 99 97 98 Oxygen Delivery Method Room Air 09/05/24 16:30 Temperature 98.0 F Temperature Source Oral Pulse Rate 60 Pulse Rate [Right] Respiratory Rate 16 Blood Pressure 183/73 H Blood Pressure [Right Arm] Blood Pressure Mean Blood Pressure Mean [Right Arm] Blood Pressure Source [Right Arm] Blood Pressure Position [Right Arm] 02 Sat by Pulse Oximetry Oxygen Delivery Method Room Air Lab Data Labs: Lab Results 09/05/24 12:47: WBC 5.0, RBC 4.34, Hgb 12.8, Hct 38.9, MCV 89.6, MCH 29.5, MCHC 32.9, RDW 13.2, Plt Count 280, MPV 9.7, Neut % (Auto) 47.2, Lymph % (Auto) 41.0, Divide % (Auto) 9.4 H, Eos % (Auto) 1.0, Baso % (Auto) 0.6, Neut # (Auto) 2.4, Lymph # (Auto) 2.0, Divide # (Auto) 0.5, Eos # (Auto) 0.1, Baso # (Auto) 0.0, PT 11.2, INR 1.00, D-Dimer 0.33, Sodium 136, Potassium 4.4, Chloride 99, Carbon Dioxide 27, Anion Gap 14.4, BUN 24 H, Creatinine 1.90 H, Estimated Creat Clear 39, Estimated GFR 26 L, Est GFR ( Amer) 31 L, Glucose 125 H, Calcium 9.8, Magnesium 2.3, Total Bilirubin 0.5, AST 31, ALT 23, Alkaline Phosphatase 43, Troponin I < 0.01, NT-Pro-B Natriuret Pep 1390 H, Total Protein 7.1, Albumin 4.6, Globulin 2.5, Albumin/Globulin Ratio 1.8, Procalcitonin 0.044, SARS-CoV-2 (PCR) Not detected, Influenza A Untype (PCR) Not detected, Influenza Type B (PCR) Not detected 09/05/24 15:10: Troponin I < 0.01 Response Orders (Tests/Meds): ED MEDICATIONS Generic Name Dose Route Start Last Admin Trade Name Freq PRN Reason Stop Dose Admin Acetaminophen 650 mg 09/05/24 17:03 09/05/24 21:10 Acetaminophen 325mg Tab PO 10/05/24 17:02 650 mg Q4HP PRN Administration Fever or Mild Pain (1-3) Aspirin 325 mg 09/05/24 17:07 09/05/24 17:46 Aspirin 325mg Tablet PO 09/05/24 17:08 325 mg ONCE ONE Administration Bisoprolol Fumarate 5 mg 09/05/24 21:00 09/05/24 21:09 Bisoprolol 5mg Tablet PO 10/05/24 20:59 5 mg BID BRITTON Administration Clopidogrel Bisulfate 75 mg 09/06/24 09:00 Clopidogrel 75mg Tab PO 10/06/24 08:59 DAILY [facility] Escitalopram Oxalate 20 mg 09/06/24 09:00 Escitalopram 20mg Tablet PO 10/06/24 08:59 DAILY [facility] Insulin Human Lispro 0 unit 09/05/24 21:00 09/05/24 21:09 Humalog 100 Units/Ml 10ml Vial ([facility]) SUBCUT 10/05/24 20:59 2 unit ACHS BRITTON Administration Protocol Isosorbide Mononitrate 60 mg 09/05/24 21:00 09/05/24 21:10 Isosorbide Divide 60mg Tab.Er.24h PO 10/05/24 20:59 60 mg BID BRITTON Administration Non-Formulary Medication 1,000 mg 09/05/24 21:00 09/05/24 21:11 Ranolazine PO 10/05/24 20:59 1,000 mg BID BRITTON Administration Ondansetron HCl 4 mg 09/05/24 17:03 Ondansetron 4mg/2ml Vial IV 10/05/24 17:02 Q8HP PRN Nausea Oxybutynin Chloride 5 mg 09/06/24 09:00 Oxybutynin 5mg Tab PO 10/06/24 08:59 DAILY [facility] Pantoprazole Sodium 40 mg 09/06/24 09:00 Pantoprazole 40mg Tablet PO 10/06/24 08:59 DAILY [facility] Pregabalin 25 mg 09/05/24 21:00 09/05/24 21:09 Pregabalin 25mg Capsule PO 10/05/24 20:59 25 mg HS BRITTON Administration Discontinued Medications Generic Name Dose Route Start Last Admin Trade Name Freq PRN Reason Stop Dose Admin Acetaminophen 1,000 mg 09/05/24 12:27 09/05/24 12:48 Acetaminophen 500mg Tab PO 09/05/24 12:28 1,000 mg ONCE ONE Administration Hydralazine HCl 25 mg 09/05/24 14:41 09/05/24 15:16 Hydralazine Hcl 25mg Tablet PO 09/05/24 14:42 25 mg ONCE ONE Administration Isosorbide Dinitrate 20 mg 09/05/24 14:41 09/05/24 15:56 Isosorbide Dinitrate 20 Mg Tablet PO 09/05/24 14:42 Not Given ONCE ONE Ketorolac Tromethamine 15 mg 09/05/24 12:27 09/05/24 12:48 Ketorolac 30mg/Ml Vial IV 09/05/24 12:28 15 mg ONCE ONE Administration Ondansetron HCl 4 mg 09/05/24 12:27 09/05/24 12:47 Ondansetron 4mg/2ml Vial IV 09/05/24 12:28 4 mg ONCE ONE Administration ORDERS Category Date Time Status Consult to Cardiology [CONS] Routine Cons 09/05/24 13:47 Active Chest XR 2 view (NOT portable) [XR chest 2V] Stat Exams 09/05/24 12:27 Completed BNP [NT Pro Brain Natriuretic Pep.] Stat Lab 09/05/24 12:47 Completed CBC w/Auto Diff [Complete Blood Count Auto Diff] Stat Lab 09/05/24 12:47 Completed CMP [Comprehensive Metabolic Panel] Stat Lab 09/05/24 12:47 Completed D-Dimer Stat Lab 09/05/24 12:47 Completed INR [Prothrombin Time INR] Stat Lab 09/05/24 12:47 Completed Magnesium Stat Lab 09/05/24 12:47 Completed Procalcitonin Stat Lab 09/05/24 12:47 Completed Rapid PCR Covid and Flu A/B Stat Lab 09/05/24 12:47 Completed Trop I [Troponin I] Stat Lab 09/05/24 12:47 Completed Troponin I Q3H Lab 09/05/24 15:10 Completed Troponin I Q3H Lab 09/05/24 18:54 Completed CA echo doppler complete Stat Y 09/05/24 14:11 Completed ECG Data Tracing #1: Attestation: I reviewed this ECG and interpreted as documented below: ECG Narrative: Sinus bradycardia with a ventricular to [address] changes concerning for STEMI. Normal intervals ECG initial impression date: 09/05/24 ECG initial impression time: 12:24
--- NOTE | 2024-09-05 12:27 | XR_ITS ---
FINAL REPORT CLINICAL HISTORY: Chest pain, hypertension COMPARISON: 04/24/2023 FINDINGS: PA and lateral views of the chest were obtained. Changes from median sternotomy. Heart is normal in size.. Right middle lobe opacity is unchanged and likely chronic atelectasis. The lungs are otherwise clear. There is no pleural effusion or pneumothorax. No acute osseous abnormality is identified. IMPRESSION: No radiographic evidence of acute cardiac or pulmonary disease. Reviewed, Interpreted and Dictated by Lina Norton MD Transcribed by Annalise Rizo Authenticated and [facility]
--- NOTE | 2024-09-05 12:34 | PC.NURSE ---
Jb ABERU at bedside
[2024-09-05] MEDS: ONDANSETRON 4MG/2ML VIAL 4 MG IV (12:47)
[2024-09-05] MEDS: ACETAMINOPHEN 500MG TAB 1000 MG PO (12:48)
[2024-09-05] MEDS: KETOROLAC 30MG/ML VIAL 15 MG IV (12:48)
[2024-09-05 12:50] LABS: Coronavirus 19, PCR Not Detected (NotDetected); Influenza A, PCR Not Detected (NotDetected); Influenza B, PCR Not Detected (NotDetected)
[2024-09-05 13:04] LABS: Basophils % 0.6 % (0.1-2.0); Eosinophils # 0.1 K/mm3 (0.0-0.4); Hematocrit 38.9 % (37.0-47.0); Hemoglobin 12.8 g/dL (12.2-16.2); Mean Corpuscular HGB Conc 32.9 g/dL (31.8-35.4); Mean Corpuscular Hemoglobin 29.5 pg (27.0-31.2); Mean Corpuscular Volume 89.6 fl (81-99); Mean Platelet Volume 9.7 fl (7.4-10.4); Monocytes # 0.5 K/mm3 (0.1-1.0); Monocytes % 9.4 % (1.7-9.3); Neutrophils # 2.4 K/mm3 (1.8-7.8); Neutrophils % 47.2 % (37.0-80.0); Platelet Count 280 K/mm3 (142-424); Red Blood Count 4.34 M/mm3 (4.20-5.40); Red Cell Distribution Width 13.2 % (11.5-17.5)
[2024-09-05 13:10] LABS: Alanine Aminotransferase 23 U/L (12-78); Albumin Level 4.6 g/dl (3.5-5.0); Albumin/Globulin Ratio 1.8 (1.1-1.8); Alkaline Phosphatase 43 U/L (38-126); Anion Gap 14.4 mEq/L (5-15); Aspartate Amino Transferase 31 U/L (14-36); Bilirubin,Total 0.5 mg/dl (0.2-1.3); Blood Urea Nitrogen 24 mg/dl (7-17); Calcium 9.8 mg/dl (8.4-10.2); Carbon Dioxide 27 mmol/L (22.0-30.0); Chloride 99 mmol/L (98-107); Creatinine Clearance Estimated 39 mL/min (50-200); Estimated Glomerular Filt Rate 26 ml/min (>60); GFR (African American) 31 ML/MIN (>60); Globulin 2.5 g/dL (1.3-3.2); Glucose 125 mg/dl (74-100); Potassium 4.4 mmoL/L (3.5-5.1); Sodium 136 mmol/L (136-145); Total Protein,Serum 7.1 g/dl (6.3-8.2)
[2024-09-05 13:11] LABS: Magnesium 2.3 mg/dl (1.6-2.3)
[2024-09-05 13:12] LABS: Prothrombin Time 11.2 seconds (10.1-12.5)
[2024-09-05 13:20] LABS: NT Pro Brain Natriuretic Pep. 1390 pg/mL (0-125)
[2024-09-05 13:22] LABS: Troponin I < 0.01 ng/ml (0.00-0.034)
[2024-09-05 13:27] LABS: Procalcitonin 0.044 ng/mL (0.0-2.0)
[2024-09-05 13:43] LABS: D-Dimer 0.33 ug/mL (0.0-0.5)
--- NOTE | 2024-09-05 13:47 | PC.NURSE ---
cardiology notified of consult
--- NOTE | 2024-09-05 14:11 | CA_ITS ---
APPROVED REPORT EXAM: Comprehensive 2D, Doppler, and color-flow Echocardiogram Ladle Filler: Liliana Rush RVT Ht: 5 ft 4 in Wt: 209lbs BSA: 1.99 BP: 174/64 mmHg Indications: CP,CAD,CABG,DM,HTN,HLD M-Mode Dimensions RVDd 2.28 cm (0.9-2.6) LA Diam 4.50 cm (1.9-4.0) LVDd 4.75 cm (3.5-5.7) LVDs 3.38 cm (3.5-5.7) IVSd 1.10 cm (0.6-1.1) PWd 0.72 cm (0.6-1.1) EF (Teich) 55.40% FS 28.80% EDV (Teich) 104.90 mL ESV (Teich) 46.80 mL LV Diastology E Decel Time 263 (160-240 msec) E/A Ratio 1.1 Aortic Valve HAIR Index 0.61 cm2/m2 AoV Peak Daron. 181.0 (50-130 cm/s) AI PHT 627.00 ms AO Peak GR. 13.20 mmHg AO Mean GR. 7.90 (<5 mmHg) AO VTI 45.7 (18-25 cm) HAIR (VTI) 1.24 (2.5-4.5 cm2) Mitral Valve MV E Max Daron. 96.0 (40-130 cm/s) MV A Velocity 89.0 (40-130 cm/s) E/A Ratio 1.08 MV PHT 77.0 ms Pulmonary Valve PV Peak Velocity 86.0 (50-150 cm/s) Tricuspid Valve TR P. Velocity 264.00 cm/s RAP Estimate 10.00 mmHg RVSP 37.80 mmHg Left Ventricle The left ventricle is normal size. The left ventricular systolic function is normal. The left ventricular ejection fraction is within the normal range. There is increased LV wall thickness. There is normal LV segmental wall motion. The left ventricular diastolic function is normal. LVEF is 55%. Right Ventricle Right ventricle is mildly dilated. The right ventricular systolic function is normal. Atria The left atrium is mildly dilated. Right atrium is mildly dilated. There is no Doppler evidence of interatrial shunt. Aortic Valve Aortic valve is mildly thickened. There is no aortic valvular stenosis. Mild aortic regurgitation. Mitral Valve The mitral valve is mildly thickened. No evidence of mitral valve stenosis. Mild mitral regurgitation. Tricuspid Valve Tricuspid valve is grossly normal in structure and function. Mild tricuspid regurgitation. RVSP is 20-25 mmHg. Pulmonic Valve The pulmonary valve is normal in structure. Trace pulmonic regurgitation. Great Vessels The aortic root is normal in size. IVC is normal in size and collapses >50% with inspiration. Pericardium There is no pericardial effusion. Other Information Study Quality: Fair Conclusion Normal biventricular systolic function. Mild RV dilation. Mild biatrial dilation. Mild AI, mild TR, mild MR. Electronically signed by : Daisy Wilkins MD 09/05/2024 15:37:41
--- NOTE | 2024-09-05 14:24 | EXP.CARD.CON ---
History of Present Illness History of Present Illness Consult date: 09/05/24 Consult reason: chest pain Chief complaint: chest pain, elevated BP Additional Medical History:: 1. CAD A. [facility], 03/01/2023 adequately revascularized. Normal EF, normal LVEDP. Patent stents noted in the LAD and RCA. B. Hx of CABG (ZAKIA in situ to left greater saphenous vein composite graft to prox RCA) in 05/2019 C. BRITTANY to ZAKIA (11/2019) D. BRITTANY: 08/2020 to right internal mammary artery supplying and kaibab RCA. E. Medical management in 04/2021 of mild to mod LAD F. medical mgt (MAR 2022) G. BRITTANY to LAD in 07/22/2022, H. [facility], 08/04/22, patent stents. 2. Hypertension A. ECHO, 07/2022, Mild LAE, normal LV size, mild concentric LVH, EF 55% with no regional WMA. Grade 1 DD. Trace AR, MR and TR. B. Echo, 02/2023, EF 55%, mild hypokinesis of the basal anterior and anterolateral LV harmon. Mild RV dilation with normal function. Mild LAE 3. JEFFREY is present bilateral ICA's less than 50%.(2022) 4. HLD-Pt is on Zetia and Repatha. Managed by PCP. 5. CKD stage 3 with Cr 1.4, GFR 37 6. DM2 controlled and managed by PCP. 7. JANIS is present on CPAP. 8. History of breast cancer: A. Status post left breast lumpectomy with lymph node removal, s/p chemotherapy X 4 treatments and radiation therapy X 15 treatments approximately 2013 History of present illness: 73-year-old white female well-known to our practice presented to the emergency department for 2 days of intermittent chest pain associated with elevated blood pressures greater than 200 mmHg. Symptoms have improved with sublingual nitroglycerin or decrease in blood pressure with her home blood pressure medications. Patient was concerned and came to the ER for further evaluation. Initial troponin in the ER is normal. Elevated BNP but chest x-ray is negative for CHF. 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 We have been trying to adjust her medications to get better control but so far it has not succeeded long-term. [facility] Disclaimer: The information contained in this section may have been updated after the patient was seen, as this information can be updated by other users. Medical History BMI 34.0-34.9,adult Neck pain Radicular pain in left arm Right-sided chest wall pain Bloating RLQ abdominal pain Acute gastroenteritis Left elbow pain Left upper arm pain Left shoulder pain Superior labrum fzkdqpsh-[id number]-wzkqgbqez (SLAP) tear of left shoulder Effusion of shoulder joint, left Traumatic tear of supraspinatus tendon of left shoulder Traumatic ecchymosis of ankle Sprain of tarsometatarsal ligament of right foot Right ankle injury Pseudomonas urinary tract infection Edema of right lower extremity High ankle sprain of right lower extremity Yeast infection of the skin Hematoma Right otitis media UTI (urinary tract infection) Vaginal yeast infection Metallic taste Thrush, oral Acute effusion of both middle ears URI (upper respiratory infection) Burping Nausea Secondary hyperparathyroidism Hoarseness Dysphagia Constipation, unspecified Abdominal pain Fatigue Neck pain on right side Urinary tract infection symptoms Pharyngitis Sinusitis Rib pain on left side Right upper quadrant pain Left breast mass H/O malignant neoplasm of breast Edema of both lower extremities Frequent falls Contusion of left upper arm Head injury Contusion of knee, left Contusion of elbow, left Skin tear of left hand without complication Dehydration, mild Kidney failure Sinusitis Labile blood pressure Typical angina Fall Syncope Dyspnea Typical angina Gallstones Discharge from left nipple Breast CA Dizziness Chest pain Breast cancer in female Extrapyramidal disorder Restless sleeper Daytime somnolence Abnormal cardiovascular stress test Atypical angina Chest pain Angina pectoris Diastolic dysfunction Edema Surgical History (Updated 09/05/24 @ 12:35 by Jayla Hanna RN) History of lumpectomy of left breast History of esophagogastroduodenoscopy (EGD) H/O thumb surgery H/O tubal ligation History of colonoscopy History of breast biopsy History of coronary artery bypass graft x 1 Stented coronary artery Family History Mother , at age 68 Congestive heart failure Crohn's disease Father , at age 84 Hypertension Cancer lung and colon ca Sister Diabetes Coronary artery disease Sister Cancer breast Diabetes Brother Coronary artery disease Grandmother Cancer paternal grandmother-colon ca Other No significant family history Social History (Updated 08/29/24 @ 10:50 by Maya Bond INTERNAL GRINDER) Smoking Status: Never smoker second hand exposure: Yes alcohol intake: never counseling provided: none substance use type: denies use current occupational status: retired Travel in the last 8 weeks: None household members: spouse housing: house marital status: number of children: 4 current occupational exposures/hazards: No caffeine: Yes do you feel safe at home: Yes victim of physical abuse: No victim of emotional abuse: No victim of sexual abuse: No would you like helpful sources: No Have you lived/traveled outside [place] in past 30 days?: No Contact w/someone who lives/traveled outside [place] past 30 days?: No Exposure to someone with infectious disease in past 14 days?: No Do you have a fever (greater than 100.4 F or 38 C)?: No Have you tested positive for COVID-19: No Exposed to someone with COVID-19 in past 14 days?: No Do you have a sore throat?: No Do you have a cough?: No Do you have any weakness?: No Do you have any diarrhea?: No Are you experiencing any unusual bleeding?: No Do you have any muscle aches/pain?: No Do you have any abdominal pain?: No Are you experiencing loss of taste or smell?: No Review of Systems Review of Systems Review of systems:: pertinent systems reviewed and negative unless documented below *Cardiovascular Cardiovascular: Reports chest pain and Reports dyspnea on exertion *Respiratory Respiratory: Reports dyspnea on exertion Exam Data for Last 24 hours Vital signs and Labs for Last 24 Hours: Temp Pulse Resp BP Pulse Ox O2 Del Method 98 F 69 18 174/64 H 100 Room Air 09/05/24 12:15 09/05/24 12:15 09/05/24 12:15 09/05/24 12:15 09/05/24 12:15 09/05/24 12:15 Laboratory Results - last 24 hr 09/05/24 12:47: WBC 5.0, RBC 4.34, Hgb 12.8, Hct 38.9, MCV 89.6, MCH 29.5, MCHC 32.9, RDW 13.2, Plt Count 280, MPV 9.7, Neut % (Auto) 47.2, Lymph % (Auto) 41.0, [place] % (Auto) 9.4 H, Eos % (Auto) 1.0, Baso % (Auto) 0.6, Neut # (Auto) 2.4, Lymph # (Auto) 2.0, [place] # (Auto) 0.5, Eos # (Auto) 0.1, Baso # (Auto) 0.0, PT 11.2, INR 1.00, D-Dimer 0.33, Sodium 136, Potassium 4.4, Chloride 99, Carbon Dioxide 27, Anion Gap 14.4, BUN 24 H, Creatinine 1.90 H, Estimated Creat Clear 39, Estimated GFR 26 L, Est GFR ( Amer) 31 L, Glucose 125 H, Calcium 9.8, Magnesium 2.3, Total Bilirubin 0.5, AST 31, ALT 23, Alkaline Phosphatase 43, Troponin I < 0.01, NT-Pro-B Natriuret Pep 1390 H, Total Protein 7.1, Albumin 4.6, Globulin 2.5, Albumin/Globulin Ratio 1.8, Procalcitonin 0.044, SARS-CoV-2 (PCR) Not detected, Influenza A Untype (PCR) Not detected, Influenza Type B (PCR) Not detected I & O for Last 24 hours: Intake & Output 09/03/24 09/04/24 09/05/24 09/06/24 11:59 11:59 11:59 11:59 Weight 209 lb Constitutional Constitutional: no acute distress *Routine Respiratory Exam Respiratory: Present CTA bilaterally *Routine Cardiovascular Exam Cardiovascular: Present RRR; Absent murmur, gallop or rubs *Routine Extremities Exam Extremities: Absent edema *Routine Neurological Exam Neurological: Present alert, oriented X3 and CN II-XII intact Meds Home Medications and Allergies Home Medications ?Medication ?Instructions ?Recorded ?Confirmed ?Type milnacipran 50 mg tablet (Savella) 50 mg PO BID 02/28/23 09/05/24 History depression/fibromyalgia nitroglycerin 0.4 mg sublingual 0.4 mg sublingual Q5-15M PRN Chest 03/09/23 09/05/24 History tablet Pain empagliflozin 10 mg tablet 10 mg PO DAILY Diabetes #90 tabs 09/09/23 09/05/24 Rx (Jardiance) clopidogrel 75 mg tablet 75 mg PO DAILY 09/21/23 09/05/24 History ezetimibe 10 mg tablet 10 mg PO DAILY Cholesterol 90 days 09/21/23 09/05/24 Rx #90 tabs levocetirizine 5 mg tablet (Xyzal) 5 mg PO HS #90 tabs 11/07/23 09/05/24 Rx flash glucose sensor (FreeStyle #6 ea 11/28/23 09/05/24 Rx Mounika 14 Day Sensor kit) calcitriol 0.25 mcg capsule 0.25 mcg PO Q OTHER DAY 12/07/23 09/05/24 History fluticasone propionate 50 1 spray intranasal DAILY PRN 01/09/24 09/05/24 History mcg/actuation nasal ALLERGIES spray,suspension (Allergy Relief (fluticasone)) fenofibrate nanocrystallized 145 145 mg PO DAILY #90 tabs 02/22/24 09/05/24 Rx mg tablet cholecalciferol (vitamin D3) 25 25 mcg PO DAILY 03/25/24 09/05/24 History mcg (1,000 unit) capsule magnesium oxide 400 mg PO DAILY Supplement 03/25/24 09/05/24 History isosorbide mononitrate 60 mg 60 mg PO BID #180 tabs 05/20/24 09/05/24 Rx tablet,extended release 24 hr estradiol 0.01% (0.1 mg/gram) See Rx Instructions vaginal 06/24/24 09/05/24 Rx vaginal cream .COMPLEX #42.5 grams oxybutynin chloride 5 mg tablet 5 mg PO DAILY #90 tabs 07/08/24 09/05/24 Rx bisoprolol fumarate 5 mg tablet 5 mg PO BID #60 tabs 07/31/24 09/05/24 Rx escitalopram oxalate 20 mg tablet 20 mg PO DAILY 08/22/24 09/05/24 History evolocumab 140 mg/mL subcutaneous 140 mg SQ Q2W 08/22/24 09/05/24 History pen injector (Repatha Tristonick) furosemide 20 mg tablet 20 mg PO Q OTHER DAY 08/22/24 09/05/24 History pantoprazole 40 mg tablet,delayed 40 mg PO DAILY 08/22/24 09/05/24 History release pregabalin 25 mg capsule 25 mg PO HS #30 caps 08/22/24 09/05/24 Rx ranolazine 1,000 mg 1,000 mg PO BID 08/22/24 09/05/24 History tablet,extended release,12 hr azelastine 137 mcg (0.1 %) nasal 1 spray intranasal BIDP PRN 09/05/24 09/05/24 History spray Allergy Symptoms insulin human U-100 NPH-regulr 31 unit SQ BID Diabetes 09/05/24 09/05/24 History 70-30 mix 100 unit/mL subcutaneous susp (Novolin 70/30 U-100 Insulin) nystatin 100,000 unit/mL oral 500,000 unit PO QIDP PRN yeast 09/05/24 09/05/24 History suspension flare up New Prescriptions to Start Prescriptions: Allergies Allergy/AdvReac Type Severity Reaction Status Date / Time Pfnouva-WEH-IaX Reductase Allergy Severe Unknown Verified 08/29/24 10:44 Inhibitor (Fwnqeca-Rzc-Zeq allergy Reductase Inhibitor) reaction Penicillins Allergy Intermediate I-RASH Verified 08/29/24 10:44 losartan Allergy Mild Verified 08/29/24 10:44 cefuroxime (From Ceftin) Allergy Unknown Verified 08/29/24 10:44 allergy reaction hydrocodone AdvReac Verified 08/29/24 10:44 Assessment and Plan *Assessment and plan (1) Angina pectoris: Status: Acute Category: Medical Code(s): I20.9 - Angina pectoris, unspecified (2) Hypertension: Status: Chronic Qualifiers: Hypertension type: essential hypertension Qualified Code(s): I10 - Essential (primary) hypertension Category: Medical Code(s): I10 - Essential (primary) hypertension (3) History of coronary artery bypass graft x 1: Problem Comment: 05/2019, Dr. Puckett Status: Chronic Category: Surgical Code(s): Z95.1 - Presence of aortocoronary bypass graft (4) CKD (chronic kidney disease) stage 3, GFR 30-59 ml/min: Problem Comment: Established with [facility], Dr. Stanford in [place]. Status: Chronic Qualifiers: Chronic kidney disease stage 3 subtype: unspecified whether 3a or 3b Qualified Code(s): N18.30 - Chronic kidney disease, stage 3 unspecified Category: Medical Code(s): N18.30 - Chronic kidney disease, stage 3 unspecified (5) DM type 2 (diabetes mellitus, type 2): Status: Chronic Qualifiers: Diabetes mellitus complication status: with other specified complication Diabetes mellitus mcfp insulin use: unspecified long term acute care registered nurse insulin use status Qualified Code(s): E11.69 - Type 2 diabetes mellitus with other specified complication Category: Medical Code(s): E11.9 - Type 2 diabetes mellitus without complications Plan 1. Angina pectoris felt related to uncontrolled hypertension -Initial troponin is normal. Plan to repeat again -EKG sinus rhythm without acute ST segment changes. -Recent cardiac catheterization in 2022 showed patent stents 2. Uncontrolled hypertension due to recent discontinuation of medications due to renal disease. -Discontinue isosorbide -Increase bisoprolol to 10 mg twice daily -Start hydralazine 25 mg twice daily along with Isordil 20 mg twice daily 3. CKD, stage III with acute exacerbation this visit with creatinine 1.9 GFR 26 4. Diabetes mellitus with recent A1c of 6.8 5. Elevated BNP at 1390 but no clinical or chest x-ray evidence of CHF Echo today shows preserved LVEF with only mild valve disease. Give a dose of hydralazine and Isordil now If second troponin normal then patient can be discharged home with medication changes as noted below if she insists. After discussing echo and clinical situation with Dr Villa he recommends admission due to high risk based on prior CABG even though her troponin is normal. He recommends proceeding with cath if she is willing. Home medication recommendations if patient insists on discharge: Bisoprolol 10 mg twice daily Discontinue isosorbide mononitrate Start hydralazine 25 mg twice daily along with Isordil 20 mg twice daily Continue ranolazine at 1000 mg twice daily Continue Jardiance 10 mg daily and Plavix 75 mg daily Keep follow-up as scheduled in October but call sooner if blood pressure continues to be elevated.
--- NOTE | 2024-09-05 15:08 | PC.NURSE ---
REPEAT TROP SENT TO LAB
[2024-09-05] MEDS: HYDRALAZINE HCL 25MG TABLET 25 MG PO (15:16)
[2024-09-05 15:54] LABS: Troponin I < 0.01 ng/ml (0.00-0.034)
--- NOTE | 2024-09-05 15:58 | PC.NURSE ---
Jb ABREU s/w Dr White for admission, agrees. banking supervisor notified.
--- NOTE | 2024-09-05 15:59 | PC.NURSE ---
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
--- NOTE | 2024-09-05 16:19 | PC.NURSE ---
Report called to LINDA De La Torre on Med Surg.
[2024-09-05] MEDS: ASPIRIN 325MG TABLET 325 MG PO (17:46)
--- NOTE | 2024-09-05 18:52 | P.HP_ITS ---
<Statement entered by Reggie White MD - 09/11/24 11:04> I personally examined patient and agree with the plan of care outlined by the CONSTRUCTION TECHNOLOGY INSTRUCTOR. History of Present Illness *Admission Date: 09/05/24 *Reason for visit:: Chest pain/high blood pressure *History of present illness: This is a 73-year-old female who has a past medical history significant for stage III chronic kidney disease, obesity, fatty liver, hypertension, coronary artery disease, diabetes, cervical retinopathy, breast cancer, choledocholithiasis, diastolic dysfunction congestive heart failure, and angina who presents with a chief complaint of high blood pressure and intermittent chest pain. Due to patient's symptoms, she presented to the emergency room for evaluation. While in the emergency room, patient's systolic blood pressure was greater than 170And she was recommended for admission by cardiology. Due to these recommendations, patient has been admitted for further management. During my evaluation of the patient, patient states she started experiencing chest pain that was intermittent last week. She reports her chest pain was both at rest and with activity. She states it would get better and then returned last week. She reports the chest pain is on the right chest wall that radiates to the left chest wall. She voices that the chest pain is intermittent and will last for 10-15 minutes. patient's chest pain started again today at 1030. She did take nitro which did improve her chest pain. Patient states she has been speaking with Tesfaye over the last week because her blood pressure was significantly high and she has been compliant with her blood pressure medication regiment. Since she started to experience chest pain today, she called her ripshear operator who recommended she come to the emergency room for evaluation. Patient is status post coronary artery bypass and graft and she has a total of 9-10 stents. She did report that she had 1 graft failure and required a stent post open heart. Currently, she is denying any chest pain, lightheadedness, dizziness, fever, chills, rigors, PND, orthopnea, swelling of lower extremities, nausea, vomiting, or diarrhea. Additional pertinent vitals obtained include a BUN of 24, creatinine 1.90, GFR 26, blood glucose 125, and BNP of 1390. Patient was last evaluated by her primary access representative Dr. Ellis in June [facility] Disclaimer: The information contained in this section may have been updated after the patient was seen, as this information can be updated by other users. Medical History (Updated 09/05/24 @ 19:02 by Lance Brewer APRN) BMI 34.0-34.9,adult Neck pain Radicular pain in left arm Right-sided chest wall pain Bloating RLQ abdominal pain Acute gastroenteritis Left elbow pain Left upper arm pain Left shoulder pain Superior labrum vberpjnf-bz-lvmczjygo (SLAP) tear of left shoulder Effusion of shoulder joint, left Traumatic tear of supraspinatus tendon of left shoulder Traumatic ecchymosis of ankle Sprain of tarsometatarsal ligament of right foot Right ankle injury Pseudomonas urinary tract infection Edema of right lower extremity High ankle sprain of right lower extremity Yeast infection of the skin Hematoma Right otitis media UTI (urinary tract infection) Vaginal yeast infection Metallic taste Thrush, oral Acute effusion of both middle ears URI (upper respiratory infection) Burping Nausea Secondary hyperparathyroidism Hoarseness Dysphagia Constipation, unspecified Abdominal pain Fatigue Neck pain on right side Urinary tract infection symptoms Pharyngitis Sinusitis Rib pain on left side Right upper quadrant pain Left breast mass H/O malignant neoplasm of breast Edema of both lower extremities Frequent falls Contusion of left upper arm Head injury Contusion of knee, left Contusion of elbow, left Skin tear of left hand without complication Dehydration, mild Kidney failure Sinusitis Labile blood pressure Typical angina Fall Syncope Dyspnea Typical angina Gallstones Discharge from left nipple Breast CA Dizziness Chest pain Breast cancer in female Extrapyramidal disorder Restless sleeper Daytime somnolence Abnormal cardiovascular stress test Atypical angina Chest pain Angina pectoris Diastolic dysfunction Edema Surgical History History of lumpectomy of left breast History of esophagogastroduodenoscopy (EGD) H/O thumb surgery H/O tubal ligation History of colonoscopy History of breast biopsy History of coronary artery bypass graft x 1 Stented coronary artery Family History Mother , at age 68 Congestive heart failure Crohn's disease Father , at age 84 Hypertension Cancer lung and colon ca Sister Diabetes Coronary artery disease Sister Cancer breast Diabetes Brother Coronary artery disease Grandmother Cancer paternal grandmother-colon ca Other No significant family history Social History (Updated 09/05/24 @ 17:35 by Мария Linares RN) Smoking Status: Never smoker second hand exposure: Yes alcohol intake: never counseling provided: none substance use type: denies use current occupational status: retired Travel in the last 8 weeks: None household members: spouse housing: house marital status: number of children: 4 current occupational exposures/hazards: No caffeine: Yes do you feel safe at home: Yes victim of physical abuse: No victim of emotional abuse: No victim of sexual abuse: No would you like helpful sources: No Have you lived/traveled outside [place] in past 30 days?: No Contact w/someone who lives/traveled outside US past 30 days?: No Exposure to someone with infectious disease in past 14 days?: No Do you have a fever (greater than 100.4 F or 38 C)?: No Have you tested positive for COVID-19: No Exposed to someone with COVID-19 in past 14 days?: No Do you have a sore throat?: No Do you have a cough?: No Do you have any weakness?: No Are you experiencing any nausea/vomitting?: Yes Do you have any diarrhea?: No Are you experiencing any unusual bleeding?: No Do you have any muscle aches/pain?: No Do you have any abdominal pain?: No Are you experiencing loss of taste or smell?: No Other Medical History Have you received the Flu Vaccine for this season: Yes Have you received the Pneumonia Vaccine: Yes Review of Systems Review of Systems Review of systems:: pertinent systems reviewed and negative unless documented below Constitutional Constitutional: Reports system reviewed and no additional complaints, except as documented Eyes Eyes: Reports system reviewed and no additional complaints, except as documented ENT Ears, Nose, Mouth, and Throat: Reports system reviewed and no additional complaints, except as documented *Cardiovascular Cardiovascular: Reports chest pain, Reports chest pain at rest and Reports chest pain with activity *Respiratory Respiratory: Reports system reviewed and no additional complaints, except as documented *Gastrointestinal Gastrointestinal: Reports system reviewed and no additional complaints, except as documented *Genitourinary Genitourinary: Reports system reviewed and no additional complaints, except as documented *Musculoskeletal Musculoskeletal: Reports system reviewed and no additional complaints, except as documented Integumentary/Breasts Skin/Breast: Reports system reviewed and no additional complaints, except as documented *Neurologic Neurologic: Reports system reviewed and no additional complaints, except as documented Psychiatric Psychiatric: Reports system reviewed and no additional complaints, except as documented Endocrine Endocrine: Reports system reviewed and no additional complaints, except as documented Hematologic/Lymphatic Hematologic/Lymphatic: Reports system reviewed and no additional complaints, except as documented Allergic/Immunologic Allergic/Immunologic: Reports system reviewed and no additional complaints, except as documented Meds Home Medications and Allergies Home Medications ?Medication ?Instructions ?Recorded ?Confirmed ?Type milnacipran 50 mg tablet (Savella) 50 mg PO BID 02/28/23 09/05/24 History depression/fibromyalgia nitroglycerin 0.4 mg sublingual 0.4 mg sublingual Q5-15M PRN Chest 03/09/23 09/05/24 History tablet Pain empagliflozin 10 mg tablet 10 mg PO DAILY Diabetes #90 tabs 09/09/23 09/05/24 Rx (Jardiance) clopidogrel 75 mg tablet 75 mg PO DAILY 09/21/23 09/05/24 History ezetimibe 10 mg tablet 10 mg PO DAILY Cholesterol 90 days 09/21/23 09/05/24 Rx #90 tabs levocetirizine 5 mg tablet (Xyzal) 5 mg PO HS #90 tabs 11/07/23 09/05/24 Rx flash glucose sensor (FreeStyle #6 ea 11/28/23 09/05/24 Rx Mounika 14 Day Sensor kit) calcitriol 0.25 mcg capsule 0.25 mcg PO Q OTHER DAY 12/07/23 09/05/24 History fluticasone propionate 50 1 spray intranasal DAILY PRN 01/09/24 09/05/24 History mcg/actuation nasal ALLERGIES spray,suspension (Allergy Relief (fluticasone)) fenofibrate nanocrystallized 145 145 mg PO DAILY #90 tabs 02/22/24 09/05/24 Rx mg tablet cholecalciferol (vitamin D3) 25 25 mcg PO DAILY 03/25/24 09/05/24 History mcg (1,000 unit) capsule magnesium oxide 400 mg PO DAILY Supplement 03/25/24 09/05/24 History isosorbide mononitrate 60 mg 60 mg PO BID #180 tabs 05/20/24 09/05/24 Rx tablet,extended release 24 hr estradiol 0.01% (0.1 mg/gram) See Rx Instructions vaginal 06/24/24 09/05/24 Rx vaginal cream .COMPLEX #42.5 grams oxybutynin chloride 5 mg tablet 5 mg PO DAILY #90 tabs 07/08/24 09/05/24 Rx bisoprolol fumarate 5 mg tablet 5 mg PO BID #60 tabs 07/31/24 09/05/24 Rx escitalopram oxalate 20 mg tablet 20 mg PO DAILY 08/22/24 09/05/24 History evolocumab 140 mg/mL subcutaneous 140 mg SQ Q2W 08/22/24 09/05/24 History pen injector (Conchita Muñoz) furosemide 20 mg tablet 20 mg PO Q OTHER DAY 08/22/24 09/05/24 History pantoprazole 40 mg tablet,delayed 40 mg PO DAILY 08/22/24 09/05/24 History release pregabalin 25 mg capsule 25 mg PO HS #30 caps 08/22/24 09/05/24 Rx ranolazine 1,000 mg 1,000 mg PO BID 08/22/24 09/05/24 History tablet,extended release,12 hr azelastine 137 mcg (0.1 %) nasal 1 spray intranasal BIDP PRN 09/05/24 09/05/24 History spray Allergy Symptoms insulin human U-100 NPH-regulr 31 unit SQ BID Diabetes 09/05/24 09/05/24 History 70-30 mix 100 unit/mL subcutaneous susp (Novolin 70/30 U-100 Insulin) nystatin 100,000 unit/mL oral 500,000 unit PO QIDP PRN yeast 09/05/24 09/05/24 History suspension flare up New Prescriptions to Start Prescriptions: Allergies Allergy/AdvReac Type Severity Reaction Status Date / Time Tsisygl-QDA-LcO Reductase Allergy Severe Unknown Verified 08/29/24 10:44 Inhibitor (Lsbhuav-Pgb-Qwx allergy Reductase Inhibitor) reaction Penicillins Allergy Intermediate I-RASH Verified 08/29/24 10:44 losartan Allergy Mild Verified 08/29/24 10:44 cefuroxime (From Ceftin) Allergy Unknown Verified 08/29/24 10:44 allergy reaction hydrocodone AdvReac Verified 08/29/24 10:44 Exam Data for Last 24 hours Vital signs and Labs for Last 24 Hours: Temp Pulse Resp BP Pulse Ox O2 Del Method 98.2 F 60 18 185/70 H 98 Room Air 09/05/24 17:04 09/05/24 17:04 09/05/24 17:04 09/05/24 17:04 09/05/24 17:04 09/05/24 17:04 Laboratory Results - last 24 hr 09/05/24 12:47: WBC 5.0, RBC 4.34, Hgb 12.8, Hct 38.9, MCV 89.6, MCH 29.5, MCHC 32.9, RDW 13.2, Plt Count 280, MPV 9.7, Neut % (Auto) 47.2, Lymph % (Auto) 41.0, [place] % (Auto) 9.4 H, Eos % (Auto) 1.0, Baso % (Auto) 0.6, Neut # (Auto) 2.4, Lymph # (Auto) 2.0, [place] # (Auto) 0.5, Eos # (Auto) 0.1, Baso # (Auto) 0.0, PT 11.2, INR 1.00, D-Dimer 0.33, Sodium 136, Potassium 4.4, Chloride 99, Carbon Dioxide 27, Anion Gap 14.4, BUN 24 H, Creatinine 1.90 H, Estimated Creat Clear 39, Estimated GFR 26 L, Est GFR ( Amer) 31 L, Glucose 125 H, Calcium 9.8, Magnesium 2.3, Total Bilirubin 0.5, AST 31, ALT 23, Alkaline Phosphatase 43, Troponin I < 0.01, NT-Pro-B Natriuret Pep 1390 H, Total Protein 7.1, Albumin 4.6, Globulin 2.5, Albumin/Globulin Ratio 1.8, Procalcitonin 0.044, SARS-CoV-2 (PCR) Not detected, Influenza A Untype (PCR) Not detected, Influenza Type B (PCR) Not detected 09/05/24 15:10: Troponin I < 0.01 I & O for Last 24 hours: Intake & Output 09/02/24 09/03/24 09/04/24 09/05/24 23:59 23:59 23:59 23:59 Intake Total 360 / 360 Balance 360 / 360 Weight 93.525 kg Constitutional Constitutional: no acute distress and obese *Routine HEENT Exam Head: Present normocephalic and atraumatic Eye: Present EOMI, PERRL and normal accommodation ENT: Present mucous membranes moist *Routine Neck Exam Neck: Present supple and full ROM *Routine Respiratory Exam Respiratory: Present CTA bilaterally, normal respiratory effort, able to speak in complete sentences and symmetric chest movement *Routine Cardiovascular Exam Cardiovascular: Present RRR, Normal S1 and Normal S2 *Routine Abdominal Exam Abdominal: Present soft, normoactive bowel sounds and obese *Routine Rectal Exam Rectal:: deferred *Routine Genitalia Exam Genitalia:: deferred *Routine Extremities Exam Extremities: Present pulses intact and normal capillary refill Routine Back/Spine/Pelvis Exam Back/Spine: Present full ROM *Routine Skin Exam Skin: Present intact, dry, warm and normal turgor *Routine Neurological Exam Neurological: Present alert, oriented X3, CN II-XII intact and normal speech Routine Psychiatric Exam Psychiatric: Present normal affect, normal thought process, cooperative, good insight and good judgment H&P: Result Impressions 73-year-old with a significant past medical history of coronary artery disease and has multiple coronary stents who is status post coronary artery bypass and graft with 1 graft failure. Patient's ripshear operator recommended admission for heart cath evaluation t Assessment and Plan *Assessment and plan (1) Chest pain: Status: Acute Qualifiers: Chest pain type: unspecified Qualified Code(s): R07.9 - Chest pain, unspecified Category: Medical Code(s): R07.9 - Chest pain, unspecified (2) CAD (coronary artery disease): Status: Acute Qualifiers: Coronary Disease-Associated Artery/Lesion type: [place] artery [place] vs. transplanted heart: [place] heart Associated angina: with unspecified form of angina Qualified Code(s): I25.119 - Atherosclerotic heart disease of [place] coronary artery with unspecified angina pectoris Category: Medical Code(s): I25.10 - Atherosclerotic heart disease of [place] coronary artery without angina pectoris (3) Acute kidney injury superimposed on chronic kidney disease: Status: Acute Category: Medical Code(s): N17.9 - Acute kidney failure, unspecified; N18.9 - Chronic kidney disease, unspecified Plan Assessment: Chest pain -This may be angina -Will make patient n.p.o. after midnight for left heart cath -Will trend troponins -Will give nitro paste for any persistent chest pain Coronary artery disease -Pending left heart cath Acute on chronic stage III renal impairment -Baseline creatinine is around 1.80 -Will monitor -Patient may need IV hydration post cath Plan: Admit patient to [facility] on telemetry Vital signs every 4 hours Consult cardiology Diabetic diet N.p.o. after midnight CBC/CMP daily Lipid panel in a.m. Magnesium daily 325 mg of aspirin x 1 75 mg of Plavix p.o. daily Sliding scale insulin ACH S with mild scale coverage 4 mg Zofran IV push to 8 hours. Nausea vomit Full code I have discussed this case with attending physician Dr. White and a look forward to more input
[2024-09-05 20:31] LABS: Troponin I < 0.01 ng/ml (0.00-0.034)
[2024-09-05] MEDS: PREGABALIN 25MG CAPSULE 25 MG PO (21:09)
[2024-09-05] MEDS: BISOPROLOL 5MG TABLET 5 MG PO (21:09)
[2024-09-05] MEDS: humaLOG 100 UNITS/ML 10ML VIAL (SSI) SUBCUT (21:09)
[2024-09-05] MEDS: ISOSORBIDE MONO 60MG TAB.ER.24H 60 MG PO (21:10)
[2024-09-05] MEDS: ACETAMINOPHEN 325MG TAB 650 MG PO (21:10)
[2024-09-05] MEDS: PATIENT'S OWN HOME MEDICATION (Ranolazine 1,000 mg tablet extended release 12 hr) 1000 EACH PO (21:11)
[2024-09-05 21:24] LABS: POC Glucose,Bedside 156 (70-110)
[2024-09-06] VITALS (21 sets, daily range): BP systolic 125–182; BP diastolic 51–84; PULSE 60–80; RESP 16–22; TEMP 36.3–37.1; O2SAT 94–98; BMI 35.2
[2024-09-06] MEDS: humaLOG 100 UNITS/ML 10ML VIAL (SSI) SUBCUT (05:29)
[2024-09-06 05:37] LABS: POC Glucose,Bedside 154 (70-110)
--- NOTE | 2024-09-06 05:40 | PC.NURSE ---
Pt A/O x4. Pt has not voiced any complaints of pain to staff throughout shift. Pt has rested well in bed. NSR on tele. Call light within reach.
[2024-09-06 07:11] LABS: Basophils % 0.4 % (0.1-2.0); Eosinophils # 0.1 K/mm3 (0.0-0.4); Eosinophils % 1.1 % (0.1-12.0); Hematocrit 36.1 % (37.0-47.0); Hemoglobin 11.9 g/dL (12.2-16.2); Lymphocytes # 2.3 K/mm3 (0.7-4.5); Lymphocytes % 49.3 % (10-50); Mean Corpuscular Hemoglobin 29.2 pg (27.0-31.2); Mean Corpuscular Volume 88.5 fl (81-99); Mean Platelet Volume 10.2 fl (7.4-10.4); Monocytes # 0.4 K/mm3 (0.1-1.0); Monocytes % 9.6 % (1.7-9.3); Neutrophils # 1.8 K/mm3 (1.8-7.8); Neutrophils % 38.7 % (37.0-80.0); Platelet Count 271 K/mm3 (142-424); Red Blood Count 4.08 M/mm3 (4.20-5.40); Red Cell Distribution Width 13.3 % (11.5-17.5); White Blood Count 4.6 K/mm3 (4.8-10.8)
[2024-09-06 07:28] LABS: Alanine Aminotransferase 19 U/L (12-78); Albumin Level 4.1 g/dl (3.5-5.0); Alkaline Phosphatase 36 U/L (38-126); Anion Gap 13.5 mEq/L (5-15); Aspartate Amino Transferase 32 U/L (14-36); Bilirubin,Total 0.5 mg/dl (0.2-1.3); Blood Urea Nitrogen 30 mg/dl (7-17); Calcium 9.4 mg/dl (8.4-10.2); Carbon Dioxide 25 mmol/L (22.0-30.0); Chloride 100 mmol/L (98-107); Chol/HDL Ratio 2.1 (1-3.5); Cholesterol 135 mg/dl (140-200); Creatinine Clearance Estimated 39 mL/min (50-200); Estimated Glomerular Filt Rate 26 ml/min (>60); GFR (African American) 31 ML/MIN (>60); Globulin 2.1 g/dL (1.3-3.2); Glucose 140 mg/dl (74-100); HDL Cholesterol 64 mg/dl (40-60); Magnesium 2.5 mg/dl (1.6-2.3); Potassium 4.5 mmoL/L (3.5-5.1); Sodium 134 mmol/L (136-145); Total Protein,Serum 6.2 g/dl (6.3-8.2); Triglycerides 102 mg/dl (30-150); VLDL Cholesterol 20 mg/dL (0-40)
[2024-09-06 07:38] LABS: Direct LDL Cholesterol 38.32 mg/dL (100-129)
[2024-09-06] MEDS: ESCITALOPRAM 20MG TABLET 20 MG PO (08:17)
[2024-09-06] MEDS: BISOPROLOL 5MG TABLET 5 MG PO (08:17)
[2024-09-06] MEDS: OXYBUTYNIN 5MG TAB 5 MG PO (08:17)
[2024-09-06] MEDS: ISOSORBIDE MONO 60MG TAB.ER.24H 60 MG PO (08:17)
[2024-09-06] MEDS: CLOPIDOGREL 75MG TAB 75 MG PO (08:17)
[2024-09-06] MEDS: RANOLAZINE 500MG ER TABLET 1000 MG PO (08:17)
--- NOTE | 2024-09-06 08:22 | HMH.PHAINT1 ---
Pharmacy Intervention Comments: MEDICATION RECONCILIATION COMPLETED ON PATIENT USING EXTERNAL FILL HISTORY FROM PHARMACY AND LIST FROM PCP/CARDIOLOGY OFFICES. -MEKHI APARICIO, WILTOND
--- NOTE | 2024-09-06 09:11 | IR_ITS ---
APPROVED REPORT Patient Location: Inpatient PROCEDURES Selective coronary angiogram Left heart catheterization Selective engagement of the right internal mammary artery to the right coronary artery INDICATION Unstable angina, Coronary artery disease, History of coronary bypass surgery Informed consent was obtained prior to the procedure. COMPLICATIONS NONE Estimated Blood Loss: LESS THAN 10 ML TECHNIQUE One percent lidocaine was used to anesthetize the right groin. The right femoral artery was accessed via the Seldinger technique. A 4-[place]od[place] sheath was placed in the right femoral artery. The JL-4 and JR-4 catheter was also used to perform left heart catheterization left ventriculogram and selective coronary angiogram. 5 [place] CALDERÓN catheter was used to intubate the right coronary artery and the right internal mammary artery ANGIOGRAPHIC RESULTS The left main artery Patent The left anterior descending artery Has a stent in the proximal segment which is widely patent free of in-stent restenosis with excellent proximal distal transitioning. The LAD itself is small and does not reach the apex The circumflex artery Large dominant with mild 10% luminal regularities The right coronary artery Is dominant with a stent in the ostial segment which is widely patent which feeds a large posterior descending artery. Competitive flow is identified from the ZAKIA graft The WANG ventriculogram reveals Not performed The left ventricular end-diastolic pressure 20 mmHg ZAKIA catheter to large posterior descending artery is widely patent there is a stent in the midportion which is also widely patent with minimal in-stent restenosis and ties into the posterior descending artery with competitive flow from the [place] vessel IMPRESSION Adequate coronary revascularization as described above Elevated LVEDP PLAN 1. Medical management for coronary artery disease and ischemic heart disease 2. Patient may benefit from lower LVEDP with judicious use of diuretics given patient's renal failure Electronically signed by : Glen Betts MD 09/06/2024 14:19:05
[2024-09-06] MEDS: BELLADONNA ALKALOIDS 60 ML ML PO (10:49)
[2024-09-06 11:27] LABS: POC Glucose,Bedside 157 (70-110)
--- NOTE | 2024-09-06 11:54 | EXP.CARD.PN ---
Subjective Subjective Date: 09/06/24 Time: 11:54 Principal diagnosis: chest pain Interval history: 73 yo WF in bed in NAD. complaint of heartburn this AM but did not get PPI this AM chest pain has improved Troponins normal. Exam Data for Last 24 hours Vital signs and Labs for Last 24 Hours: Temp Pulse Resp BP Pulse Ox O2 Del Method 98.2 F 69 16 131/57 L 94 L Room Air 09/06/24 11:46 09/06/24 11:46 09/06/24 11:46 09/06/24 11:46 09/06/24 11:46 09/06/24 11:46 Laboratory Results - last 24 hr 09/05/24 12:47: WBC 5.0, RBC 4.34, Hgb 12.8, Hct 38.9, MCV 89.6, MCH 29.5, MCHC 32.9, RDW 13.2, Plt Count 280, MPV 9.7, Neut % (Auto) 47.2, Lymph % (Auto) 41.0, [place] % (Auto) 9.4 H, Eos % (Auto) 1.0, Baso % (Auto) 0.6, Neut # (Auto) 2.4, Lymph # (Auto) 2.0, [place] # (Auto) 0.5, Eos # (Auto) 0.1, Baso # (Auto) 0.0, PT 11.2, INR 1.00, D-Dimer 0.33, Sodium 136, Potassium 4.4, Chloride 99, Carbon Dioxide 27, Anion Gap 14.4, BUN 24 H, Creatinine 1.90 H, Estimated Creat Clear 39, Estimated GFR 26 L, Est GFR ( Amer) 31 L, Glucose 125 H, Calcium 9.8, Magnesium 2.3, Total Bilirubin 0.5, AST 31, ALT 23, Alkaline Phosphatase 43, Troponin I < 0.01, NT-Pro-B Natriuret Pep 1390 H, Total Protein 7.1, Albumin 4.6, Globulin 2.5, Albumin/Globulin Ratio 1.8, Procalcitonin 0.044, SARS-CoV-2 (PCR) Not detected, Influenza A Untype (PCR) Not detected, Influenza Type B (PCR) Not detected 09/05/24 15:10: Troponin I < 0.01 09/05/24 18:54: Troponin I < 0.01 09/05/24 21:06: POC Glucose 156 H 09/06/24 05:27: POC Glucose 154 H 09/06/24 06:25: WBC 4.6 L, RBC 4.08 L, Hgb 11.9 L, Hct 36.1 L, MCV 88.5, MCH 29.2, MCHC 33.0, RDW 13.3, Plt Count 271, MPV 10.2, Neut % (Auto) 38.7, Lymph % (Auto) 49.3, [place] % (Auto) 9.6 H, Eos % (Auto) 1.1, Baso % (Auto) 0.4, Neut # (Auto) 1.8, Lymph # (Auto) 2.3, [place] # (Auto) 0.4, Eos # (Auto) 0.1, Baso # (Auto) 0.0, Sodium 134 L, Potassium 4.5, Chloride 100, Carbon Dioxide 25, Anion Gap 13.5, BUN 30 H, Creatinine 1.90 H, Estimated Creat Clear 39, Estimated GFR 26 L, Est GFR ( Amer) 31 L, Glucose 140 H, Calcium 9.4, Magnesium 2.5 H, Total Bilirubin 0.5, AST 32, ALT 19, Alkaline Phosphatase 36 L, Total Protein 6.2 L, Albumin 4.1 D, Globulin 2.1, Albumin/Globulin Ratio 2.0 H, Triglycerides 102, Cholesterol 135 L, LDL Cholesterol Direct 38.32 L, VLDL Cholesterol 20, HDL Cholesterol 64 H, Cholesterol/HDL Ratio 2.1 09/06/24 11:20: POC Glucose 157 H I & O for Last 24 hours: Intake & Output 09/03/24 09/04/24 09/05/24 09/06/24 11:59 11:59 11:59 11:59 Intake Total 410 / 410 Output Total 0 / 0 Balance 410 / 410 Weight 206 lb 2.997 oz Constitutional Constitutional: no acute distress *Routine Respiratory Exam Respiratory: Present CTA bilaterally *Routine Cardiovascular Exam Cardiovascular: Present RRR Progress Note: A&P Assessment and plan (1) Chest pain: Status: Acute (2) CAD (coronary artery disease): Status: Acute (3) Acute kidney injury superimposed on chronic kidney disease: Status: Acute Assessment and Plan Assessment and Plan for All Diagnoses:: 1. Angina pectoris felt related to uncontrolled hypertension -troponins normal -EKG sinus rhythm without acute ST segment changes. -Recent cardiac catheterization in 2022 showed patent stents 2. Uncontrolled hypertension due to recent discontinuation of medications due to renal disease. -home meds continued -await results of LHC and renal angiogram before deciding on med changes 3. CKD, stage III with acute exacerbation this visit -creatinine 1.9 GFR 26 4. Diabetes mellitus with recent A1c of 6.8 5. Elevated BNP at 1390 but no clinical or chest x-ray evidence of CHF Left heart cath showed adequate coronary revascularization with elevated LVEDP at 20 mm Hg. Renal angiogram not performed due to normal renal arteries in 2022. Clinically stable for discharge home. Follow-up in our office in 1 week. Home medication recommendations: Bisoprolol 5 mg twice daily Plavix 75 mg daily Jardiance 10 mg daily On Repatha as directed Zetia 10 mg daily Fenofibrate 145 mg daily Furosemide 20 mg every 48 hours Isosorbide mononitrate 60 mg twice daily Ranolazine 1000 mg twice daily Recommend adding hydralazine 25 mg 3 times daily as needed for blood pressure greater than 160 mmHg
[2024-09-06] MEDS: LIDOCAINE 1% 10ML MDV 20 ML IJ (12:35)
[2024-09-06] MEDS: 0.9 % SODIUM CHLORIDE 500 ML 25 ML IV (12:36)
[2024-09-06] MEDS: diphenhydrAMINE 50MG/ML VIAL 50 MG IV (12:36)
[2024-09-06] MEDS: HEPARIN 1,000 UNITS/500ML NS (CATH LAB) 3000 UNIT IV (12:36)
[2024-09-06] MEDS: IOPAMIDOL-370 (76%);100ML BOTTLE 50 ML IV (14:26)
--- NOTE | 2024-09-06 14:56 | PC.NURSE ---
pt arrived back from crime laboratory analyst at 1400. pt did not receive any stents. accessed through R groin with manual pressure applied. pt able to sit up at 1525. pt and family in the room educated and verbalized understanding. dressing to groin remains c/d/i. no needs voiced at this time. call light within reach.
--- NOTE | 2024-09-06 17:32 | PC.NURSE ---
pt remains a&ox4. fsbs @ 1100 was 154 and @ 1630 was 104. pt had a heart cath this shift with R groin access. Received no stents. due to groin access and manual pressure closure, pt remained flat until 1525 and head of bed has gradually been raised. dressing remains c/d/i to the R groin. post op vitals has remained stable and are to be completed until 2044 per post cath vitals sheet. pt has no complaints of pain or discomfort. family at bedside and were made aware of cath findings by Dr. Betts. call light within reach. no needs at this time.
--- NOTE | 2024-09-06 19:12 | P.DS_ITS ---
General Admission date:: 09/05/24 HPI HPI HPI: This is a 73-year-old female who has a past medical history significant for stage III chronic kidney disease, obesity, fatty liver, hypertension, coronary artery disease, diabetes, cervical retinopathy, breast cancer, choledocholithiasis, diastolic dysfunction congestive heart failure, and angina who presents with a chief complaint of high blood pressure and intermittent chest pain. Due to patient's symptoms, she presented to the emergency room for evaluation. While in the emergency room, patient's systolic blood pressure was greater than 170And she was recommended for admission by cardiology. Due to these recommendations, patient has been admitted for further management. During my evaluation of the patient, patient states she started experiencing chest pain that was intermittent last week. She reports her chest pain was both at rest and with activity. She states it would get better and then returned last week. She reports the chest pain is on the right chest wall that radiates to the left chest wall. She voices that the chest pain is intermittent and will last for 10-15 minutes. patient's chest pain started again today at 1030. She did take nitro which did improve her chest pain. Patient states she has been speaking with Tesfaye over the last week because her blood pressure was significantly high and she has been compliant with her blood pressure medication regiment. Since she started to experience chest pain today, she called her real estate asset manager who recommended she come to the emergency room for evaluation. Patient is status post coronary artery bypass and graft and she has a total of 9-10 stents. She did report that she had 1 graft failure and required a stent post open heart. Currently, she is denying any chest pain, lightheadedness, dizziness, fever, chills, rigors, PND, orthopnea, swelling of lower extremities, nausea, vomiting, or diarrhea. Additional pertinent vitals obtained include a BUN of 24, creatinine 1.90, GFR 26, blood glucose 125, and BNP of 1390. Patient was last evaluated by her primary housecleaner floor Dr. Ellis in June Hospital Course Hospital Course Hospital Course: Nichole Morales is a 73-year-old female who presented with chest pain and was admitted for ACS workup. #Chest pain #History of CABG, CAD with stents #Hypertension #Hyperlipidemia ? Cardiology consulted, s/p LHC without occlusive coronary disease. No new stents needed. ? ECHO showed normal biventricular function. No wall motion abnormalities. ? Cardiology advised to start hydralazine 25 mg every 8 hours as needed for SBP greater than 160, and continue other home medications and follow-up in the clinic within 1 week. ? At this time, cardiology believes uncontrolled hypertension is contributing to chest pains. ? Continue home Bisoprolol 5 mg twice daily, Plavix 75 mg daily, Jardiance 10 mg daily, Repatha as directed, Zetia 10 mg daily, Fenofibrate 145 mg daily, Furosemide 20 mg every 48 hours, Isosorbide mononitrate 60 mg twice daily, Ranolazine 1000 mg twice daily. #Type 2 diabetes ? Hemoglobin A1c 6.8%. ? Continue home Jardiance 10 mg, pregabalin 25 mg. #CKD stage IV # Creatinine 1.9, GFR 26. Stable. Total time spent on discharge: 32 minutes on chart review, counseling, documentation, and direct care with patient. Exam Data for Last 24 hours Vital signs and Labs for Last 24 Hours: Temp Pulse Resp BP Pulse Ox O2 Del Method 98.1 F 62 20 127/51 L 95 Room Air 09/06/24 18:45 09/06/24 18:45 09/06/24 18:45 09/06/24 18:45 09/06/24 18:45 09/06/24 18:45 Laboratory Results - last 24 hr 09/05/24 18:54: Troponin I < 0.01 09/05/24 21:06: POC Glucose 156 H 09/06/24 05:27: POC Glucose 154 H 09/06/24 06:25: WBC 4.6 L, RBC 4.08 L, Hgb 11.9 L, Hct 36.1 L, MCV 88.5, MCH 29.2, MCHC 33.0, RDW 13.3, Plt Count 271, MPV 10.2, Neut % (Auto) 38.7, Lymph % (Auto) 49.3, Early % (Auto) 9.6 H, Eos % (Auto) 1.1, Baso % (Auto) 0.4, Neut # (Auto) 1.8, Lymph # (Auto) 2.3, Early # (Auto) 0.4, Eos # (Auto) 0.1, Baso # (Auto) 0.0, Sodium 134 L, Potassium 4.5, Chloride 100, Carbon Dioxide 25, Anion Gap 13.5, BUN 30 H, Creatinine 1.90 H, Estimated Creat Clear 39, Estimated GFR 26 L, Est GFR ( Amer) 31 L, Glucose 140 H, Calcium 9.4, Magnesium 2.5 H, Total Bilirubin 0.5, AST 32, ALT 19, Alkaline Phosphatase 36 L, Total Protein 6.2 L, Albumin 4.1 D, Globulin 2.1, Albumin/Globulin Ratio 2.0 H, Triglycerides 102, Cholesterol 135 L, LDL Cholesterol Direct 38.32 L, VLDL Cholesterol 20, HDL Cholesterol 64 H, Cholesterol/HDL Ratio 2.1 09/06/24 11:20: POC Glucose 157 H I & O for Last 24 hours: Intake & Output 09/03/24 09/04/24 09/05/24 09/06/24 23:59 23:59 23:59 23:59 Intake Total 360 / 360 530 / 530 Output Total 0 / 0 0 / 0 Balance 360 / 360 530 / 530 Weight 93.525 kg 93.5 kg Results Data Completed and Pending Labs on day of discharge: Labs from last 24 hours 09/06/24 09/06/24 09/06/24 11:20 06:25 05:27 WBC 4.6 L RBC 4.08 L Hgb 11.9 L Hct 36.1 L MCV 88.5 MCH 29.2 MCHC 33.0 RDW 13.3 Plt Count 271 MPV 10.2 Neut % (Auto) 38.7 Lymph % (Auto) 49.3 Early % (Auto) 9.6 H Eos % (Auto) 1.1 Baso % (Auto) 0.4 Neut # (Auto) 1.8 Lymph # (Auto) 2.3 Early # (Auto) 0.4 Eos # (Auto) 0.1 Baso # (Auto) 0.0 Sodium 134 L Potassium 4.5 Chloride 100 Carbon Dioxide 25 Anion Gap 13.5 BUN 30 H Creatinine 1.90 H Estimated Creat Clear 39 Estimated GFR 26 L Est GFR ( Amer) 31 L Glucose 140 H POC Glucose 157 H 154 H Calcium 9.4 Magnesium 2.5 H Total Bilirubin 0.5 AST 32 ALT 19 Alkaline Phosphatase 36 L Troponin I Total Protein 6.2 L Albumin 4.1 D Globulin 2.1 Albumin/Globulin Ratio 2.0 H Triglycerides 102 Cholesterol 135 L LDL Cholesterol Direct 38.32 L VLDL Cholesterol 20 HDL Cholesterol 64 H Cholesterol/HDL Ratio 2.1 09/05/24 09/05/24 21:06 18:54 WBC RBC Hgb Hct MCV MCH MCHC RDW Plt Count MPV Neut % (Auto) Lymph % (Auto) Early % (Auto) Eos % (Auto) Baso % (Auto) Neut # (Auto) Lymph # (Auto) Early # (Auto) Eos # (Auto) Baso # (Auto) Sodium Potassium Chloride Carbon Dioxide Anion Gap BUN Creatinine Estimated Creat Clear Estimated GFR Est GFR ( Amer) Glucose POC Glucose 156 H Calcium Magnesium Total Bilirubin AST ALT Alkaline Phosphatase Troponin I < 0.01 Total Protein Albumin Globulin Albumin/Globulin Ratio Triglycerides Cholesterol LDL Cholesterol Direct VLDL Cholesterol HDL Cholesterol Cholesterol/HDL Ratio DS: Diagnosis Discharge Diagnosis (1) Chest pain: Status: Acute Code(s): R07.9 - Chest pain, unspecified Qualifiers: Chest pain type: unspecified Qualified Code(s): R07.9 - Chest pain, unspecified (2) CAD (coronary artery disease): Status: Acute Code(s): I25.10 - Atherosclerotic heart disease of [place] coronary artery without angina pectoris Qualifiers: Associated angina: with unspecified form of angina Coronary Disease- Associated Artery/Lesion type: [place] artery [place] vs. transplanted heart: [place] heart Qualified Code(s): I25.119 - Atherosclerotic heart disease of [place] coronary artery with unspecified angina pectoris (3) Acute kidney injury superimposed on chronic kidney disease: Status: Acute Code(s): N17.9 - Acute kidney failure, unspecified; N18.9 - Chronic kidney disease, unspecified Meds Home Medications and Allergies Home Medications ?Medication ?Instructions ?Recorded ?Confirmed ?Type milnacipran 50 mg tablet (Savella) 50 mg PO BID 02/28/23 09/12/24 History nitroglycerin 0.4 mg sublingual 0.4 mg sublingual Q5-15M PRN Chest 03/09/23 09/12/24 History tablet Pain ezetimibe 10 mg tablet 10 mg PO DAILY Cholesterol 90 days 09/21/23 09/12/24 Rx #90 tabs levocetirizine 5 mg tablet (Xyzal) 5 mg PO HS #90 tabs 11/07/23 09/12/24 Rx flash glucose sensor (FreeStyle #6 ea 11/28/23 09/12/24 Rx Mounika 14 Day Sensor kit) calcitriol 0.25 mcg capsule 0.25 mcg PO Q48H 12/07/23 09/12/24 History fluticasone propionate 50 1 spray intranasal DAILYP PRN 01/09/24 09/12/24 History mcg/actuation nasal ALLERGIES spray,suspension (Allergy Relief (fluticasone)) fenofibrate nanocrystallized 145 145 mg PO DAILY #90 tabs 02/22/24 09/12/24 Rx mg tablet cholecalciferol (vitamin D3) 25 25 mcg PO DAILY 03/25/24 09/12/24 History mcg (1,000 unit) capsule magnesium oxide 400 mg PO DAILY Supplement 03/25/24 09/12/24 History isosorbide mononitrate 60 mg 60 mg PO BID #180 tabs 05/20/24 09/12/24 Rx tablet,extended release 24 hr oxybutynin chloride 5 mg tablet 5 mg PO DAILY #90 tabs 07/08/24 09/12/24 Rx bisoprolol fumarate 5 mg tablet 5 mg PO BID #60 tabs 07/31/24 09/12/24 Rx escitalopram oxalate 20 mg tablet 20 mg PO DAILY 08/22/24 09/12/24 History evolocumab 140 mg/mL subcutaneous 140 mg SQ Q2W 08/22/24 09/12/24 History pen injector (Conchita Muñoz) pantoprazole 40 mg tablet,delayed 40 mg PO DAILY 08/22/24 09/12/24 History release pregabalin 25 mg capsule 25 mg PO HS #30 caps 08/22/24 09/12/24 Rx ranolazine 1,000 mg 1,000 mg PO BID 08/22/24 09/12/24 History tablet,extended release,12 hr azelastine 137 mcg (0.1 %) nasal 1 spray intranasal BIDP PRN 09/05/24 09/12/24 History spray Allergy Symptoms insulin human U-100 NPH-regulr 31 unit SQ BID 09/05/24 09/12/24 History 70-30 mix 100 unit/mL subcutaneous susp (Novolin 70/30 U-100 Insulin) estradiol 0.01% (0.1 mg/gram) 1 appful vaginal DIRECTED 09/06/24 09/12/24 History vaginal cream hydralazine 25 mg tablet 25 mg PO TID PRN Systolic BP > 160 09/06/24 09/12/24 Rx #30 tabs empagliflozin 10 mg tablet 10 mg PO DAILY Diabetes #90 tabs 09/09/24 09/12/24 Rx (Jardiance) furosemide 20 mg tablet 40 mg (2 x 20 mg) PO Q48H #30 tabs 09/11/24 09/12/24 Rx semaglutide 0.25 mg or 0.5 mg (2 0.25 mg (0.368 mL) SQ WEEKLY #3 mL 09/11/24 09/12/24 Rx mg/3 mL) subcutaneous pen injector (Ozempic) clopidogrel 75 mg tablet 75 mg PO DAILY #90 tabs 09/13/24 Rx New Prescriptions to Start Prescriptions: hydralazine Reggie White Allergies Allergy/AdvReac Type Severity Reaction Status Date / Time [id number] Reductase Allergy Severe Unknown Verified 09/12/24 13:11 Inhibitor (Lhihhdm-Rqs-Gep allergy Reductase Inhibitor) reaction Penicillins Allergy Intermediate I-RASH Verified 09/12/24 13:11 losartan Allergy Mild Verified 09/12/24 13:11 cefuroxime (From Ceftin) Allergy Unknown Verified 09/12/24 13:11 allergy reaction hydrocodone AdvReac Verified 09/12/24 13:11 Discharge Plan Disposition Patient Disposition: Home, Self-Care Condition: Fair Follow up Plan Follow up with: Becky Noe APRN [Nurse Practitioner] - 09/11/24 2:00 pm Maribel Ambriz APRN [Primary Care Provider] - 09/12/24 1:30 pm Prescriptions/Medication Reconciliation: New hydralazine 25 mg tablet 25 mg PO TID PRN (Reason: Systolic BP > 160) Qty: 30 0RF Continued ezetimibe 10 mg tablet 10 mg PO DAILY 90 Days Qty: 90 3RF (DME) FreeStyle Mounika 14 Day Sensor Kit See Rx Instructions .Route Qty: 6 3RF Rx Instructions: change sensor device every 14 days calcitriol 0.25 mcg capsule 0.25 mcg PO Q48H fluticasone propionate [Allergy Relief (fluticasone)] 50 mcg/actuation spray,suspension 1 spray intranasal DAILYP PRN (Reason: ALLERGIES) cholecalciferol (vitamin D3) 25 mcg (1,000 unit) capsule 25 mcg PO DAILY pregabalin 25 mg capsule 25 mg PO HS Qty: 30 0RF escitalopram oxalate 20 mg tablet 20 mg PO DAILY Repatha SureClick 140 mg/mL pen injector 140 mg SQ Q2W pantoprazole 40 mg tablet,delayed release (DR/EC) 40 mg PO DAILY ranolazine 1,000 mg tablet extended release 12 hr 1,000 mg PO BID nitroglycerin 0.4 mg tablet, sublingual 0.4 mg sublingual Q5-15M PRN (Reason: Chest Pain) Patient Comments: DISSOLVE ONE TABLET UNDER THE TONGUE EVERY 5 MINUTES NEEDED FOR CHEST PAIN. DO NOT EXCEED A TOTAL OF 3 DOSES IN 15 MINUTES fenofibrate nanocrystallized 145 mg tablet 145 mg PO DAILY Qty: 90 3RF oxybutynin chloride 5 mg tablet 5 mg PO DAILY Qty: 90 3RF levocetirizine [Xyzal] 5 mg tablet 5 mg PO HS Qty: 90 3RF isosorbide mononitrate 60 mg tablet extended release 24 hr 60 mg PO BID Qty: 180 3RF bisoprolol fumarate 5 mg tablet 5 mg PO BID Qty: 60 4RF Savella 50 mg Tablet 50 mg PO BID magnesium oxide 400 mg magnesium tablet 400 mg PO DAILY Novolin 70/30 U-100 Insulin 100 unit/mL (70-30) suspension 31 unit SQ BID azelastine 137 mcg (0.1 %) spray,non-aerosol 1 spray intranasal BIDP PRN (Reason: Allergy Symptoms) Rx Instructions: administer into each nostril estradiol 0.01 % (0.1 mg/gram) cream 1 appful VAGINAL DIRECTED Patient Comments: APPLY CREAM VAGINALLY ONCE DAILY USING FINGER TECHNIQUE FOR TWO WEEKS THEN 3 TIMES WEEKLY VAGINALLY No Action Ozempic 0.25 mg or 0.5 mg (2 mg/3 mL) pen injector 0.25 mg SQ WEEKLY Qty: 3 0RF Rx Instructions: for 4 weeks furosemide 20 mg tablet 40 mg PO Q48H Qty: 30 0RF Jardiance 10 mg tablet 10 mg PO DAILY Qty: 90 3RF clopidogrel 75 mg tablet 75 mg PO DAILY Qty: 90 1RF Problem Reconciliation Problems Reviewed?: Yes Patient Discharge Instructions Additional Instructions: Take Lasix 20mg every other day for now until you see cardiology. They will advise whether you should take daily. Patient Instructions: DI for Chest Pain Print Language: Yakut Providers Primary Care Provider: Maribel Ambriz Admit Provider: Reggie White Attending Provider: Reggie White
--- NOTE | 2024-09-06 19:52 | PC.NURSE ---
Patient left floor with staff for home at 19:51.
--- NOTE | 2024-09-09 13:07 | SW/DCPLANNER ---
Spoke with patient on the phone. Patient stated that she is doing well. Patient stated that she is aware of her upcoming appointments. Patient stated that she was able to get her new medicine picked up from [facility] [facility]. Patient stated that she has no concern or questions at this time. Dahiana Crawford
== END 2024-09-06 19:51 | disposition home or self-care (01) ==
LOC: ER 15:57 → 2ND 16:09
PROVIDERS: Internal Medicine; Physician Assistant; Admitting Provider Student in an Organized Health Care Education/Training Program; Emergency Provider Emergency Medicine; PCP Nurse Practitioner Family; Visit Provider Student in an Organized Health Care Education/Training Program
DX: I25.119 Atherosclerotic heart disease of native coronary artery with unspecified angina pectoris (principal); I13.0 Hypertensive heart and chronic kidney disease with heart failure and stage 1 through stage 4 chronic kidney disease, or unspecified chronic kidney disease; N18.30 Chronic kidney disease, stage 3 unspecified; I50.30 Unspecified diastolic (congestive) heart failure; E11.69 Type 2 diabetes mellitus with other specified complication; E78.5 Hyperlipidemia, unspecified; K76.0 Fatty (change of) liver, not elsewhere classified; E21.3 Hyperparathyroidism, unspecified; H35.00 Unspecified background retinopathy; E66.9 Obesity, unspecified; R09.89 Other specified symptoms and signs involving the circulatory and respiratory systems; G25.9 Extrapyramidal and movement disorder, unspecified; K80.50 Calculus of bile duct without cholangitis or cholecystitis without obstruction; R00.1 Bradycardia, unspecified; Z95.1 Presence of aortocoronary bypass graft; Z95.5 Presence of coronary angioplasty implant and graft; Z68.35 Body mass index [BMI] 35.0-35.9, adult; Z91.81 History of falling; Z85.3 Personal history of malignant neoplasm of breast; Z98.890 Other specified postprocedural states; Z88.6 Allergy status to analgesic agent; Z88.1 Allergy status to other antibiotic agents; Z88.0 Allergy status to penicillin; Z87.898 Personal history of other specified conditions; Z82.49 Family history of ischemic heart disease and other diseases of the circulatory system; Z80.0 Family history of malignant neoplasm of digestive organs; Z80.1 Family history of malignant neoplasm of trachea, bronchus and lung; Z80.3 Family history of malignant neoplasm of breast; Z83.3 Family history of diabetes mellitus; Z79.899 Other long term (current) drug therapy; Z79.84 Long term (current) use of oral hypoglycemic drugs; Z79.02 Long term (current) use of antithrombotics/antiplatelets; Z79.890 Hormone replacement therapy; Z79.4 Long term (current) use of insulin; Z92.21 Personal history of antineoplastic chemotherapy; Z92.3 Personal history of irradiation
CPT/HCPCS: 36415; 71046; 80053; 80061; 82962; 83735; 83880; 84145; 84484; 85025; 85378; 85610; 87636; 93005; 93306; 93458; 99152; 99291; C1725; C1769; C1894; G0378; J1200; J1644; J1885; J2250; J2405; Q9967

== ENCOUNTER 2024-09-20 09:06 | Outpatient (CLI) | payer MEDICARE, SELFPAY ==
--- OUTSIDE RECORDS SUMMARY | 2024-09-20 09:08 | XMS_ITS | Clinical Summary ---
Author Organization [facility] , [facility] Address [address] [place] [address] Phone Care Team Providers Care Size Stamper Name Role Phone CM DIALLO, СВЕТЛАНА Unavailable [phone] Sania DIALLO, Brayden Ariza Primary Care Provider [phone] Reason for Visit and Chief Complaint Epidural Steroid Injection Problems Includes: Problems addressed during this encounter and other active Problems All Visits Onset Date Resolved Date Provider Condition S tatus Neck Pain 09/23/2021 Juvenal Healy MD Active Last Documented On 2 8:43AM ; [facility], [facility] Lower Back Pain 01/14/2021 Juvenal Healy MD Act girish Last Documented On 1 9:59AM ; [facility], [facility] Bone Pain in the Left Hand 04/15/2016 Brayden Lui MD Active Last Documented On 6 9:03AM ; [facility], [facility] Plan of Treatment No Plan of Treatment Recorded Assessments Includes: Assessments from this encounter No Assessments Recorded Medical Equipment - Implanted Devices Includes: Current Devices No Medical Equipment Recorded Medications Includes: Medications discussed during this encounter and other current Medications Current Medications (continue as prescribed) Furosemide 20 MG Oral Tablet 01/12/2021 Provider: Diagnosis: Last Documented On 1 3:54PM By Mary Mims ; [facility], [facility] NovoLIN 70/30 ReliOn (70-30) 100 UNIT/ML Subcutaneous Suspension 01/08/2021 Provider: СВЕТЛАНА PABON MD Diagnosis: Last Documented On 1 3:54PM By Mary Mims ; [facility], [facility] Repatha SureClick 140 MG/ML Subcutaneous Solution Auto-injector 01/03/2021 Provider: Diagnosis: Last Documented On 3:54PM By Mary Mims ; [facility], [facility] tiZANidine HCl 4 MG Oral Tablet 12/23/2020 Provider: СВЕТЛАНА PABON MD Diagnosis: Last Documented On 3:54PM By Mary Mims ; [facility], [facility] ARIPiprazole 2 MG Oral Tablet 12/19/2020 Provider: СВЕТЛАНА PABON MD Diagnosis: Last Documented On 3:54PM By Mary Mims ; [facility], [facility] Ezetimibe 10 MG Oral Tablet 12/02/2020 Provider: СВЕТЛАНА PABON MD Diagnosis: Last Documented On 3:54PM By Mary Mims ; [facility], [facility] Carvedilol 25 MG Oral Tablet 12/02/2020 Provider: Diagnosis: Last Documented On 3:54PM By Mary Mims ; [facility], [facility] Escitalopram Oxalate 20 MG Oral Tablet 11/25/2020 Pr ovider: СВЕТЛАНА PABON MD Diagnosis: Last Documented On 3:54PM By Mary Mims ; [facility], [facility] Savella 50 MG Oral Tablet 11/22/2020 Provider: [facility] PABON MD Diagnosis: Last Documented On 3:54PM By Mary Mims ; [facility], [facility] Lansoprazole 30 MG Oral Capsule Delayed Release 2020 Provider: СВЕТЛАНА PABON MD Diagnosis: Last Documented On 1 3:54PM By Mary Mims ; [facility], [facility] Clopidogrel Bisulfate 75 MG Oral Tablet 10/29/2020 P rovider: Diagnosis: Last Documented On 3:54PM By Mary Mims ; [facility], [facility] [place] 7.5-325 MG Tablet 05/16/2016 Provider: Oliver Lui MD Diagnosis: 1-2 po q6h prn pain Last Documented On 6 12:33PM By Santa Bedoya ; [facility], [facility] Medications Administered Includes: Administered Medications from this encounter No Administered Medications Recorded Results Includes: Results discussed during this encounter No Results Recorded For Specified Dates History of Present Illness Includes: History of Present Illness from this encounter No History of Present Illness Recorded Social History No Social History Recorded - Smoking Status Unknown Medical History Includes: Medical History addressed during this encounter No Medical History Recorded Family History Includes: Family History addressed during this encounter No Family History Recorded Review of Systems Includes: Review of Systems from this encounter No Review of Systems Recorded Mental Status Includes: Mental Status from this encounter No Mental Status Recorded Functional Status Includes: Functional Status from this encounter No Functional Status Recorded Physical Exam Includes: Physical Exam from this encounter No Physical Exam Recorded Allergies Includes: Active Allergies Substance Type Reaction Onset Date Resolved Date Statu s Penicillins Allergy 01/23/2012 Active Last Documented On 2 9:32AM ; [facility] Encounters Encounter Provider Location Date Check-In Time Check-Out Time Diagnosis Epidural Steroid Injection Juvenal Healy MD 10/06/2021 4:21PM 11:59PM Insurance Includes: Active Insurance Policies Plan Name Member ID Group # Subscriber Relationship Effect girish Dates 1 - [employer] [id number] Nichole Morales Self 06/12/2017 - Unknown Clinical Notes Includes: Clinical Notes from this encounter No Clinical Notes Recorded
--- OUTSIDE RECORDS SUMMARY | 2024-09-20 09:08 | XMS_ITS ---
Care Plan - [facility], [facility] Created on: September 20, 2024 Nichole Morales : 1950 Sex: Female Author Organization [facility], [facility] Address [address] [place] [address] Phone Care Team Providers Care Deboner Name Role Phone CM DIALLO, СВЕТЛАНА Unavailable [phone] Sania DIALLO, Brayden Ariza Primary Care Provider [phone]
--- OUTSIDE RECORDS SUMMARY | 2024-09-20 09:08 | XMS_ITS ---
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 Name Role Phone CM DIALLO, СВЕТЛАНА Unavailable [phone] Sania DIALLO, Brayden Ariza Primary Care Provider [phone] Reason for Referral Date Encounter Description Provider Reason for Referral 05/13/21 Follow Up Juvenal Healy MD Referral To Physician - for elevated blood pressure 02/25/21 Follow Up Juvenal Healy MD Referral To Physician - for elevated blood pressure 01/14/21 NEW PROBLEM/EST PT Juvenal Healy MD Refer ral To Physician - see pcp for bp Problems Includes: Active, inactive, and resolved Problems All Visits Onset Date Resolved Date Provider Condition S tatus Neck Pain 09/23/2021 Juvenal Healy MD Active Last Documented On 2 8:43AM ; [facility] Lower Back Pain 01/14/2021 Juvenal Healy MD Act girish Last Documented On 1 9:59AM ; [facility] Bone Pain in the Left Hand 04/15/2016 Brayden Lui MD Active Last Documented On 6 9:03AM ; [facility] Plan of Treatment Instructions to patient Lose weight Last Documented On 2 9:33AM ; [facility] Lose weight Last Documented On 2 8:44AM ; [facility] Lose weight Last Documented On 1 8:22AM ; [facility] Lose weight Last Documented On 1 10:00AM ; [facility] Instructions for patient see pcp for elevated bp Last Documented On 1 2:52PM ; [facility] Lose weight Last Documented On 1 3:40PM ; [facility] Instructions for patient see pcp for elevated bp Last Documented On 8 12:54PM ; [facility] Instructions for patient see pcp for elevated bp Last Documented On 8 9:00AM ; [facility] Instructions for patient see pcp for elevated bp Last Documented On 8 8:57AM ; [facility] Instructions for patient see pcp for elevated bp Last Documented On 8 9:31AM ; [facility] Instructions for patient see pcp for elevated bp Last Documented On 8 12:48PM ; [facility] Instructions for patient see pcp for elevated bp Last Documented On 7 10:01AM ; [facility] Instructions for patient see pcp for elevated bp Last Documented On 6 10:06AM ; [facility] Instructions for patient see pcp for elevated bp Last Documented On 6 9:03AM ; [facility] No intervention and counseli ng on cessation of tobacco use Last Documented On 6 9:03AM ; [facility] Education and Decision Aids were provided during visit for: No health seminar on smoking cessation Last Documented On 1 2:52PM ; [facility] No health seminar on smoking cessation Last Documented On 8 12:54PM ; [facility] No health seminar on smoking cessation Last Documented On 8 9:00AM ; [facility] No health seminar on smoking cessation Last Documented On 8 8:57AM ; [facility] No health seminar on smoking cessation Last Documented On 8 9:31AM ; [facility] No health seminar on smoking cessation Last Documented On 8 12:48PM ; [facility] No health seminar on smoking cessation Last Documented On 7 10:01AM ; [facility] No health seminar on smoking cessation Last Documented On 6 10:06AM ; [facility] No health seminar on smoking cessation Last Documented On 6 9:03AM ; [facility] Assessments Includes: Assessments for all patient encounters No Assessments Recorded Instructions Includes: Instructions for all patient encounters Instructions to patient Lose weight Last Documented On 2 9:33AM ; [facility] Lose weight Last Documented On 2 8:44AM ; [facility] Lose weight Last Documented On 1 8:22AM ; [facility] Lose weight Last Documented On 1 10:00AM ; [facility] Instructions for patient see pcp for elevated bp Last Documented On 1 2:52PM ; [facility] Lose weight Last Documented On 1 3:40PM ; [facility] Instructions for patient see pcp for elevated bp Last Documented On 8 12:54PM ; [facility] Instructions for patient see pcp for elevated bp Last Documented On 8 9:00AM ; [facility] Instructions for patient see pcp for elevated bp Last Documented On 8 8:57AM ; [facility] Instructions for patient see pcp for elevated bp Last Documented On 8 9:31AM ; [facility] Instructions for patient see pcp for elevated bp Last Documented On 8 12:48PM ; [facility] Instructions for patient see pcp for elevated bp Last Documented On 7 10:01AM ; [facility] Instructions for patient see pcp for elevated bp Last Documented On 6 10:06AM ; [facility] Instructions for patient see pcp for elevated bp Last Documented On 6 9:03AM ; [facility] No intervention and counseli ng on cessation of tobacco use Last Documented On 6 9:03AM ; [facility] Education and Decision Aids were provided during visit for: No health seminar on smoking cessation Last Documented On 1 2:52PM ; [facility] No health seminar on smoking cessation Last Documented On 8 12:54PM ; [facility] No health seminar on smoking cessation Last Documented On 8 9:00AM ; [facility] No health seminar on smoking cessation Last Documented On 8 8:57AM ; [facility] No health seminar on smoking cessation Last Documented On 8 9:31AM ; [facility] No health seminar on smoking cessation Last Documented On 8 12:48PM ; [facility] No health seminar on smoking cessation Last Documented On 7 10:01AM ; [facility] No health seminar on smoking cessation Last Documented On 6 10:06AM ; [facility] No health seminar on smoking cessation Last Documented On 6 9:03AM ; [facility] Medical Equipment - Implanted Devices Includes: Current and historical Devices No Medical Equipment Recorded Medications Includes: Current and historical Medications Current Medications (continue as prescribed) Furosemide 20 MG Oral Tablet 01/12/2021 Provider: Diagnosis: Last Documented On 3:54PM By Mary Mims ; [facility] NovoLIN 70/30 ReliOn (70-30) 100 UNIT/ML Subcutaneous Suspension 01/08/2021 Provider: СВЕТЛАНА PABON MD Diagnosis: Last Documented On 1 3:54PM By Mary Mims ; [facility] Repatha SureClick 140 MG/ML Subcutaneous Solution Auto-injector 01/03/2021 Provider: Diagnosis: Last Documented On 3:54PM By Mary Mims ; [facility] tiZANidine HCl 4 MG Oral Tablet 12/23/2020 Provider: СВЕТЛАНА PABON MD Diagnosis: Last Documented On 1 3:54PM By Mary Mims ; [facility] ARIPiprazole 2 MG Oral Tablet 12/19/2020 Provider: СВЕТЛАНА PABON MD Diagnosis: Last Documented On 1 3:54PM By Mary Mims ; [facility] Ezetimibe 10 MG Oral Tablet 12/02/2020 Provider: СВЕТЛАНА PABON MD Diagnosis: Last Documented On 1 3:54PM By Mary Mims ; [facility] Carvedilol 25 MG Oral Tablet 12/02/2020 Provider: Diagnosis: Last Documented On 1 3:54PM By Mary Mims ; [facility] Escitalopram Oxalate 20 MG Oral Tablet 11/25/2020 Pr ovider: СВЕТЛАНА PABON MD Diagnosis: Last Documented On 1 3:54PM By Mary Mims ; [facility] Savella 50 MG Oral Tablet 11/22/2020 Provider: [facility] PABON MD Diagnosis: Last Documented On 1 3:54PM By Mary Mims ; [facility] Lansoprazole 30 MG Oral Capsule Delayed Release 2020 Provider: СВЕТЛАНА PABON MD Diagnosis: Last Documented On 1 3:54PM By Mary Mims ; [facility] Clopidogrel Bisulfate 75 MG Oral Tablet 10/29/2020 P antonioder: Diagnosis: Last Documented On 1 3:54PM By Mary Mims ; [facility] Savannah 7.5-325 MG Tablet 05/16/2016 Provider: Oliver Lui MD Diagnosis: 1-2 po q6h prn pain Last Documented On 6 12:33PM By [place] ; [facility] Past Medications on file [place] 5-325MG Oral Tablet 10/27/2017 - 11/26/2017 Prov ider: Juvenal Healy MD Diagnosis: 1-2 po q 4-6h prn for pain surgery 11/01/17 Last Documented On 8 2:12PM By Annalise Arias ; [facility] [place] 5-325MG Oral Tablet 09/15/2017 - 10/15/2017 Prov ider: Juvenal Healy MD Diagnosis: 1-2 po q 4-6h prn for pain surgery 09/20/17 Last Documented On 8 9:44AM By Annalise Arias ; [facility] CeleBREX 50 MG Capsule, conventional 04/15/2016 - 07/2020 Provider: Diagnosis: Last Documented On 1 8:21AM By Dalton Caban ; [facility] Omeprazole 10 MG Capsule, delayed-release 04/15/2016 - 05/13/2021 Provider: Diagnosis: Last Documented On 1 8:22AM By Dalton Caban ; [facility] Lipitor 10 MG Tablet 04/15/2016 - 05/13/2021 Provider: Diagnosis: Last Documented On 1 8:22AM By Dalton Caban ; [facility] Easy Touch Insulin Syringe 3 0G X 1/2 1 ML Miscellaneous (not specified) 04/15/2016 - 05/13/2021 Provider: Diagnosis: Last Documented On 1 8:21AM By Dalton Caban ; [facility] Actos 15 MG Tablet 04/15/2016 - 05/13/2021 Provider: Diagnosis: Last Documented On 1 8:21AM By Dalton Caban ; [facility] Janumet 50-500 MG Tablet 04/15/2016 - 05/13/2021 Provi dewayne: Diagnosis: Last Documented On 1 8:21AM By Dalton Caban ; [facility] Lexapro 20 MG Tablet 04/15/2016 - 05/13/2021 Provider: Diagnosis: Last Documented On 1 8:22AM By Dalton Caban ; [facility] Zanaflex 4 MG Tablet 04/15/2016 - 01/14/2021 Provider: Diagnosis: Last Documented On 1 3:54PM By Mary Mims ; [facility] Lortab 7.5-500 MG OR TABS 02/06/2012 - 02/11/2012 Prov ider: Brayden Lui MD Diagnosis: Last Documented On 2 12:46PM By Samaria Alonzo ; [facility] Clindamycin HCl 150 MG OR CAPS 02/06/2012 - 02/09/2012 Provider: Brayden Lui MD Diagnosis: Last Documented On 2 12:46PM By Samaria Alonzo ; [facility] Medications Administered Includes: Administered Medications in patient's chart No Administered Medications Recorded Results Includes: Results from 09/21/2023 through 09/20/2024 No Results Recorded For Specified Dates History of Present Illness History of Present Illness not supported for this document type No History of Present Illness Recorded Social History Description Last Updated Not a current smoker. 01/14/2021 Last Documented On 1 3:41PM ; [facility] Recent change in diet 01/14/2021 Last Documented On 1 3:41PM ; [facility] Non-smoker 01/14/2021 Last Documented On 1 3:41PM ; [facility] Caffeine use 10/04/2017 Last Documented On 8 1:03PM ; [facility] Exercising regularly 10/04/2017 Last Documented On 8 1:03PM ; [facility] No tobacco use 10/04/2017 Last Documented On 8 1:03PM ; [facility] Not a current smoker 10/04/2017 Last Documented On 8 1:03PM ; [facility] Not using alcohol 10/04/2017 Last Documented On 8 1:03PM ; [facility] Not using drugs 10/04/2017 Last Documented On 8 1:03PM ; [facility] Smoking status : Never smoker 10/04/2017 Last Documented On 8 1:03PM ; [facility] Procedures and Surgical History Surgical History Last Updated History of hysterectomy 10/04/2017 Last Documented On 8 1:03PM ; [facility] Medical History Includes: Medical History in patient's chart Description Last Updated No recent immunization for flu 2 Last Documented On 2 9:56AM ; [facility] No recent immunization for pneumococcal pneumonia 11/01/2021 Last Documented On 2 9:56AM ; [facility] Arthritis 01/14/2021 Last Documented On 1 3:41PM ; [facility] Heartburn / Acid Reflux 01/14/2021 Last Documented On 1 3:41PM ; [facility] History of Cancer 01/14/2021 Last Documented On 1 3:41PM ; [facility] History of heart disease 01/14/2021 Last Documented On 1 3:41PM ; [facility] Hypertension 01/14/2021 Last Documented On 1 3:41PM ; [facility] Heart surgery 01/14/2021 Last Documented On 1 3:41PM ; [facility] Hysterectomy 01/14/2021 Last Documented On 1 3:41PM ; [facility] Past Surgical History: trigger finger SX 01/14/2021 Last Documented On 1 3:41PM ; [facility] Past medical history non-contributory ~h igh cholesterol ~heartburn 10/19/2017 Last Documented On 8 4:00PM ; [facility] A history of cancer 10/04/2017 Last Documented On 8 1:03PM ; [facility] Arthritic joint problems 10/04/2017 Last Documented On 8 1:03PM ; [facility] History of depression 10/04/2017 Last Documented On 8 1:03PM ; [facility] History of diabetes mellitus 10/04/2017 Last Documented On 8 1:03PM ; [facility] History of diverticulitis of colon 10/04 Last Documented On 8 1:03PM ; [facility] Intermittent hypertension 10/04/2017 Last Documented On 8 1:03PM ; [facility] Family History Includes: Family History in patient's chart Description Last Updated stroke/seizure: brother 10/04/2017 Last Documented On 8 1:03PM ; [facility] Family history of cancer father/sister 0 10/04/2017 Last Documented On 8 1:03PM ; [facility] Family history of heart disease mother 0 10/04/2017 Last Documented On 8 1:03PM ; [facility] Family history of hypertension mother/fa ther/sister/brother 10/04/2017 Last Documented On 8 1:03PM ; [facility] Family history of thromboembolic disease mother 10/04/2017 Last Documented On 8 1:03PM ; [facility] Review of Systems Review of Systems not supported for this document type No Review of Systems Recorded Mental Status Description No anxiety Functional Status No Functional Status Recorded Physical Exam Physical Exam not supported for this document type No Physical Exam Recorded Allergies Includes: Active, inactive, and resolved Allergies Substance Type Reaction Onset Date Resolved Date Statu s Penicillins Allergy 01/23/2012 Active Last Documented On 2 9:32AM ; [facility] Insurance Includes: Active Insurance Policies Plan Name Member ID Group # Subscriber Relationship Effect girish Dates 1 - [employer] [id number] Nichole Morales Lakhwinder 06/12/2017 - Unknown Clinical Notes Includes: Signed Clinical Notes starting from 05/26/2022 No Clinical Notes Recorded
--- OUTSIDE RECORDS SUMMARY | 2024-09-20 09:08 | XMS_ITS | Clinical Summary ---
Author Organization [facility] , [facility] Address [address] [place] [address] Phone Care Team Providers Care Control And Recovery Combat Rescue Name Role Phone CM DIALLO, СВЕТЛАНА Unavailable [phone] Sania DIALLO, Brayden Ariza Primary Care Provider [phone] Reason for Visit and Chief Complaint The Chief Complaint is: Neck pain Problems Includes: Problems addressed during this encounter and other active Problems Current Visit Onset Date Resolved Date Provider Conditio n Status Neck Pain 09/23/2021 Juvenal Healy MD Active Last Documented On 2 8:43AM ; [facility] Lower Back Pain 01/14/2021 Juvenal Healy MD Act girish Last Documented On 1 9:59AM ; [facility], [facility] Past Visits Onset Date Resolved Date Provider Condition Status Bone Pain in the Left Hand 04/15/2016 Brayden Lui MD Active Last Documented On 6 9:03AM ; [facility] Plan of Treatment Fall Risk Assessment: This patient has been identified as a fall risk. Balance/gait along with postural blood pressure, vision and home fall hazards have been assessed. Medications have been reviewed, and recommendations made with regard to contributing factors for future falls. Plan of care: Consideration of vitamin D supplementation along with balance and strength training with consideration for formal physical therapy has been discussed with the patient. - Last Documented On 09/23/2021 2:55PM ; [facility] Pending Tests Order Diagnosis Results Due Ordering P rovider Therapy - Physical Therapy Cervical 09/23/21 Juvenal Healy MD Last Documented On 2 2:55PM ; [facility] Instructions to patient Lose weight Last Documented On 2 8:44AM ; [facility] Assessments Includes: Assessments from this encounter No Assessments Recorded Instructions Includes: Instructions from this encounter Instructions to patient Lose weight Last Documented On 2 8:44AM ; [facility] Medical Equipment - Implanted Devices Includes: Current Devices No Medical Equipment Recorded Medications Includes: Medications discussed during this encounter and other current Medications Current Medications (continue as prescribed) Furosemide 20 MG Oral Tablet 01/12/2021 Provider: Diagnosis: Last Documented On 3:54PM By Mary Mims ; [facility] NovoLIN 70/30 ReliOn (70-30) 100 UNIT/ML Subcutaneous Suspension 01/08/2021 Provider: СВЕТЛАНА PABON MD Diagnosis: Last Documented On 3:54PM By Mary Mims ; [facility] Repatha SureClick 140 MG/ML Subcutaneous Solution Auto-injector 01/03/2021 Provider: Diagnosis: Last Documented On 3:54PM By Mary Mims ; [facility] tiZANidine HCl 4 MG Oral Tablet 12/23/2020 Provider: СВЕТЛАНА PABON MD Diagnosis: Last Documented On 1 3:54PM By Mary Mims ; [facility] ARIPiprazole 2 MG Oral Tablet 12/19/2020 Provider: СВЕТЛАНА PABON MD Diagnosis: Last Documented On 1 3:54PM By Mary Mims ; [facility] Ezetimibe 10 MG Oral Tablet 12/02/2020 Provider: СВЕТЛАНА PABON MD Diagnosis: Last Documented On 3:54PM By Mary Mims ; [facility] Carvedilol 25 MG Oral Tablet 12/02/2020 Provider: Diagnosis: Last Documented On 1 3:54PM By Mary Mims ; [facility] Escitalopram Oxalate 20 MG Oral Tablet 11/25/2020 Pr ovider: СВЕТЛАНА PABON MD Diagnosis: Last Documented On 3:54PM By Mary Mims ; [facility], [facility] Savella 50 MG Oral Tablet 11/22/2020 Provider: [facility] PABON MD Diagnosis: Last Documented On 1 3:54PM By Mary Mims ; [facility] Lansoprazole 30 MG Oral Capsule Delayed Release 2020 Provider: СВЕТЛАНА PABON MD Diagnosis: Last Documented On 1 3:54PM By Mary Mims ; [facility] Clopidogrel Bisulfate 75 MG Oral Tablet 10/29/2020 P antonioder: Diagnosis: Last Documented On 1 3:54PM By Mary Mims ; [facility] [place] 7.5-325 MG Tablet 05/16/2016 Provider: Oliver Lui MD Diagnosis: 1-2 po q6h prn pain Last Documented On 6 12:33PM By Santa Bedoya ; [facility], [facility] Past Medications on file [place] 5-325MG Oral Tablet 10/27/2017 - 11/26/2017 Prov ider: Juvenal Healy MD Diagnosis: 1-2 po q 4-6h prn for pain surgery 11/01/17 Last Documented On 8 2:12PM By Annalise Arias ; [facility] [place] 5-325MG Oral Tablet 09/15/2017 - 10/15/2017 Prov ider: Juvenal Healy MD Diagnosis: 1-2 po q 4-6h prn for pain surgery 09/20/17 Last Documented On 8 9:44AM By Annalise Arias ; [facility] Lortab 7.5-500 MG OR TABS 02/06/2012 - 02/11/2012 Prov ider: Brayden Lui MD Diagnosis: Last Documented On 2 12:46PM By Samaria Alonzo ; [facility] Clindamycin HCl 150 MG OR CAPS 02/06/2012 - 02/09/2012 Provider: Brayden Lui MD Diagnosis: Last Documented On 2 12:46PM By Samaria Alonzo ; [facility] Medications Administered Includes: Administered Medications from this encounter No Administered Medications Recorded Vital Signs Includes: Vital Signs from this encounter Vital Name 09/23/2021 08:44A Blood Pressure Sitting (mmHg) 124/51 Pulse Rate-Sitting (bpm) 68 Height (in) 63 Weight (lb) 207 Body Mass Index (kg/m2) 36.7 Body Surface Area (m2) 2.0 Last Documented: On 09/23/2021 2:54PM ; [facility], [facility] Results Includes: Results discussed during this encounter No Results Recorded For Specified Dates History of Present Illness Includes: History of Present Illness from this encounter BRANDON Morales is a 71 year old female. - Symptoms popping Heat makes symptoms better. - Allergy list reviewed - Problem list reviewed - Medication reconciliation performed - Medication list reviewed - Medication list reviewed with patient - Previous history of new onset pain 2018 Injury is not work related or an automotive accident - [place]den [place] - Pain is occasional (25% of the time) - Patient pain level from 1-10: 4 - Yes, previous treatment. PCP Social History Description Last Updated Not a current smoker. 01/14/2021 Last Documented On 2 8:43AM ; [facility], [facility] Recent change in diet 01/14/2021 Last Documented On 2 8:43AM ; [facility] Non-smoker 01/14/2021 Last Documented On 2 8:43AM ; [facility] Caffeine use 10/04/2017 Last Documented On 2 8:43AM ; [facility] Exercising regularly 10/04/2017 Last Documented On 2 8:43AM ; [facility] No tobacco use 10/04/2017 Last Documented On 2 8:43AM ; [facility] Not a current smoker 10/04/2017 Last Documented On 2 8:43AM ; [facility] Not using alcohol 10/04/2017 Last Documented On 2 8:43AM ; [facility] Not using drugs 10/04/2017 Last Documented On 2 8:43AM ; [facility], [facility] Smoking status : Never smoker 10/04/2017 Last Documented On 2 8:43AM ; [facility] Procedures and Surgical History Includes: Procedures from this encounter Procedures Code Diagnosis Performing Provider Service L ocation Service Date use of tobacco assessment performed 1000F Last Documented On 2 8:43AM ; [facility] patient screened for future fall risk 3288F Last Documented On 2 8:43AM ; [facility] Surgical History Last Updated History of hysterectomy 10/04/2017 Last Documented On 2 8:43AM ; [facility] Medical History Includes: Medical History addressed during this encounter Description Last Updated Recent immunization for flu 11/01/2021 Last Documented On 2 8:43AM ; [facility] Recent immunization for pneumococcal pne umonia 11/01/2021 Last Documented On 2 8:43AM ; [facility] Arthritis 01/14/2021 Last Documented On 2 8:43AM ; [facility] Heartburn / Acid Reflux 01/14/2021 Last Documented On 2 8:43AM ; [facility] History of Cancer 01/14/2021 Last Documented On 2 8:43AM ; [facility] History of heart disease 01/14/2021 Last Documented On 2 8:43AM ; [facility] Hypertension 01/14/2021 Last Documented On 2 8:43AM ; [facility] Heart surgery 01/14/2021 Last Documented On 2 8:43AM ; [facility] Hysterectomy 01/14/2021 Last Documented On 2 8:43AM ; [facility] Past Surgical History: trigger finger SX 01/14/2021 Last Documented On 2 8:43AM ; [facility] Past medical history non-contributory ~h igh cholesterol ~heartburn 10/19/2017 Last Documented On 2 8:43AM ; [facility] A history of cancer 10/04/2017 Last Documented On 2 8:43AM ; [facility] Arthritic joint problems 10/04/2017 Last Documented On 2 8:43AM ; [facility] History of depression 10/04/2017 Last Documented On 2 8:43AM ; [facility] History of diabetes mellitus 10/04/2017 Last Documented On 2 8:43AM ; [facility] History of diverticulitis of colon 10/04 Last Documented On 2 8:43AM ; [facility] Intermittent hypertension 10/04/2017 Last Documented On 2 8:43AM ; [facility] Family History Includes: Family History addressed during this encounter Description Last Updated stroke/seizure: brother 10/04/2017 Last Documented On 2 8:43AM ; [facility] Family history of cancer father/sister 0 10/04/2017 Last Documented On 2 8:43AM ; [facility] Family history of heart disease mother 0 10/04/2017 Last Documented On 2 8:43AM ; [facility] Family history of hypertension mother/fa ther/sister/brother 10/04/2017 Last Documented On 2 8:43AM ; [facility] Family history of thromboembolic disease mother 10/04/2017 Last Documented On 2 8:43AM ; [facility] Review of Systems Includes: Review of Systems from this encounter Systemic: Feeling tired. No recent weight loss and no recent weight gain. No edema. Head: No headache and no sinus pain. Eyes: Vision problems glasses/contacts. No vision problems, no Cataracts, no Glasses/Contacts, and no Glaucoma. Otolaryngeal: No hearing loss and no tinnitus. No nasal symptoms. Cardiovascular: No chest pain or discomfort, no palpitations, no Hypertension, and no High Cholesterol. Pulmonary: No daytime asthma symptoms, no cough, and no chronic cough. No wheezing. Gastrointestinal: No heartburn and no abdominal pain. No Indigestion, no Acid Reflux, no Peptic Ulcer, no GI Stomach Bleed, and no Ulcers. Endocrine: No hot flashes, no muscle weakness, no Diabetes, no Hypothyroid, and no Hyperthyroid. Hematologic: No easy bleeding. A tendency for easy bruising. No Anemia. Musculoskeletal: No Arthritis and no lower back pain. No soft tissue swelling. Pain localized to one or more joints. Neurological: No dizziness, no convulsions, and no numbness. Psychological: No anxiety and no emotional lability. Depression. No insomnia. Not crying for no reason. Skin: No dry skin. No Ulcers, no Scars, no rash, and no ulcers. Allergic and Immunologic: No complaint of seasonal allergic reaction. REVIEWED W/ PATIENT 09/23/2021 Mental Status Includes: Mental Status from this encounter Description No anxiety Functional Status Includes: Functional Status from this encounter No Functional Status Recorded Physical Exam Includes: Physical Exam from this encounter Allergies Includes: Active Allergies Substance Type Reaction Onset Date Resolved Date Statu s Penicillins Allergy 01/23/2012 Active Last Documented On 2 9:32AM ; [facility] Encounters Encounter Provider Location Date Check-In Time Check-Out Time Diagnosis NEW PROBLEM/EST PT Juvenal Healy MD [facility] 09/24/19 22 8:35AM 9:32AM Insurance Includes: Active Insurance Policies Plan Name Member ID Group # Subscriber Relationship Effect girish Dates 1 - [employer] [id number] Nichole Morales Self 06/12/2017 - Unknown Clinical Notes Includes: Clinical Notes from this encounter No Clinical Notes Recorded
--- OUTSIDE RECORDS SUMMARY | 2024-09-20 09:08 | XMS_ITS | Clinical Summary ---
Author Organization [facility] , [facility] Address [address] [place] [address] Phone Care Team Providers Care Electric Range Assembler Name Role Phone CM DIALLO, СВЕТЛАНА Unavailable [phone] Sania DIALLO, Brayden Ariza Primary Care Provider [phone] Reason for Visit and Chief Complaint Epidural Steroid Injection Problems Includes: Problems addressed during this encounter and other active Problems All Visits Onset Date Resolved Date Provider Condition S tatus Neck Pain 09/23/2021 Juvenal Healy MD Active Last Documented On 2 8:43AM ; [facility], [facility] Lower Back Pain 01/14/2021 Juvenal Healy MD Act girish Last Documented On 1 9:59AM ; [facility], [facility] Bone Pain in the Left Hand 04/15/2016 Brayden Lui MD Active Last Documented On 6 9:03AM ; [facility], [facility] Plan of Treatment No Plan of Treatment Recorded Assessments Includes: Assessments from this encounter No Assessments Recorded Medical Equipment - Implanted Devices Includes: Current Devices No Medical Equipment Recorded Medications Includes: Medications discussed during this encounter and other current Medications Current Medications (continue as prescribed) Furosemide 20 MG Oral Tablet 01/12/2021 Provider: Diagnosis: Last Documented On 1 3:54PM By Mary Mims ; [facility], [facility] NovoLIN 70/30 ReliOn (70-30) 100 UNIT/ML Subcutaneous Suspension 01/08/2021 Provider: СВЕТЛАНА PABON MD Diagnosis: Last Documented On 1 3:54PM By Mary Mims ; [facility], [facility] Repatha SureClick 140 MG/ML Subcutaneous Solution Auto-injector 01/03/2021 Provider: Diagnosis: Last Documented On 3:54PM By Mary Mims ; [facility], [facility] tiZANidine HCl 4 MG Oral Tablet 12/23/2020 Provider: СВЕТЛАНА PABON MD Diagnosis: Last Documented On 3:54PM By Mary Mims ; [facility], [facility] ARIPiprazole 2 MG Oral Tablet 12/19/2020 Provider: СВЕТЛАНА PABON MD Diagnosis: Last Documented On 3:54PM By Mary Mims ; [facility], [facility] Ezetimibe 10 MG Oral Tablet 12/02/2020 Provider: СВЕТЛАНА PABON MD Diagnosis: Last Documented On 3:54PM By Mary Mims ; [facility], [facility] Carvedilol 25 MG Oral Tablet 12/02/2020 Provider: Diagnosis: Last Documented On 3:54PM By Mary Mims ; [facility], [facility] Escitalopram Oxalate 20 MG Oral Tablet 11/25/2020 Pr ovider: СВЕТЛАНА PABON MD Diagnosis: Last Documented On 3:54PM By Mary Mims ; [facility], [facility] Savella 50 MG Oral Tablet 11/22/2020 Provider: [facility] PAB[facility] MD Diagnosis: Last Documented On 3:54PM By Mary Mims ; [facility], [facility] Lansoprazole 30 MG Oral Capsule Delayed Release 2020 Provider: СВЕТЛАНА PABON MD Diagnosis: Last Documented On 1 3:54PM By Mary Mims ; [facility], [facility] Clopidogrel Bisulfate 75 MG Oral Tablet 10/29/2020 P rovider: Diagnosis: Last Documented On 3:54PM By Mary Mims ; [facility], [facility] [place] 7.5-325 MG Tablet 05/16/2016 Provider: Oliver Lui MD Diagnosis: 1-2 po q6h prn pain Last Documented On 6 12:33PM By Santa Bedoya ; [facility] Medications Administered Includes: Administered Medications from this [...] Active Last Documented On 2 9:32AM ; [facility] Encounters Encounter Provider Location Date Check-In Time Check-Out Time Diagnosis Epidural Steroid Injection Juvenal Healy MD [facility] 09/03/19 22 12:37PM 1:30PM Insurance Includes: Active Insurance Policies Plan Name Member ID Group # Subscriber Relationship Effect girish Dates 1 - [employer] [id number] Nichole Morales Self 06/12/2017 - Unknown Clinical Notes Includes: Clinical Notes from this encounter No Clinical Notes Recorded
--- OUTSIDE RECORDS SUMMARY | 2024-09-20 09:08 | XMS_ITS | Data Portability ---
Author Organization [place] - BINU Villar BRICELYN CLOSED Address [address] [facility] [address] [place] [address] Assessment No assessment recorded. Plan of Treatment Reminders Order Date Submit Date Provider Last Modified By Organization Details Last Modified Time Details Appointments None record ed. Lab None record ed. Referral None record ed. Procedures None record ed. Surgeries None record ed. Imaging None record ed. Medication Orders None record ed. Patient TargetsNo targets recorded. Patient InstructionsNo instructions recorded. Reason for Referral None Reported. Results Created Date Observation Date Name Description Value Unit Range Abnormal Flag Note LastModifiedBy Organization Detail LastModifiedTime 10/19/19 22 10/18/2021 SURGI LIZA surgical SEE BELOW Depar tment of Patho logy Surgi liza Patho logy Repor t NAME: NICHOLE MORALES PATH. :ST-[id number] Copy to: Diagn osis: A) Gastr ic biops y: -Mild chron ic gastr itis. -Immu nosta in for Helic obact er pylor i: Negat merline. 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 -Foca l jorge luis t cell intes tinal metap lasia (see comme nt). Comme nt: Intes tinal metap lasia can be seen with [place] tt's esoph nafisa, or with intes tinal metap lasia of gastr ic cardi a. Corre late with clini liza and endos copic findi ngs. SOURC E OF SPECI MEN: GASTR IC BIOPS Y ESOPH AGEAL BIOPS Y CLINI LIZA INFOR MATIO N: R13.1 0 / Z80.0 DYSPH AGIA / GERD COLLE CTION : A SPECI MEN REMOV AL: 7:[address] D IN FIXAT MERLINE: 7:55 O'ARNOL CK COLD ISCHE JUSTINE TIME: 0 MINUT ES TOTAL FIXAT ION TIME: 11 HOURS COLLE CTION : B SPECI MEN REMOV AL: 7:[address] D IN FIXAT MERLINE: 7:56 O'ARNOL CK COLD ISCHE JUSTINE TIME: 0 MINUT ES TOTAL FIXAT ION TIME: 11 HOURS Gross Descr iptio n: A) Recei allyssa in forma damian label ed with the patie nt's name and desig nated as marichuy qing biops y are two fragm ents of pale lewis tissu e measu ring 0.3 cm and 0.4 cm. Entir rashid submi tted in one casse tte. B) Recei allyssa in forma damian label ed with the patie nt's name and desig nated as esop hagus biops y are two fragm ents of pale lewis tissu e measu ring 0.3 cm and 0.6 cm. Entir rashid submi tted in one casse tte. MT 10/18 02:18 PM Micro scopi c Descr iptio n: A micro scopi c exami natio n was perfo rmed with findi ngs as indic ated in the diagn osis. All contr ols stain appro priat rashid. MOSES SRIVASTAVA MD Hina d Out Date: 10/19 14:24 Page 1 of 1 Not Available [facility] [address] [place] [address], [place], [address], 10/19/2021 14:26:02 09/29/19 22 09/28/2021 RF, esoph nafisa, w/ contr [facility] [address] [facility] [place] [address] Sidra matos Name: NICHOLE matos : [birth year] 51 Sidra matos Orderi ng Provid er: CHOCO BOSE Y EXAM DATE: 2021 EXAM: RF ESOPHA [facility]ON CLINIC AL INFORM ATION: Sheri butler. TECHNI QUE: Multip le double contra st images of variou s parts of the esopha baron, were obtain ed using high-d ensity barium suspen indra. This was follow ed by AP and latera l rapid sequen ce (3/sec ) images of the pharyn x and upper esopha baron during swallo wing. The study was comple tom by multip le prone images of the esopha baron during swallo wing and assess ment for reflux . FINDIN GS: CERVIC AL ESOPHA BARON: Rapid sequen ce views of the upper esopha baron show normal pharyn geal anatom y. No aspira tion is seen. THORAC O ABDOMI NAL ESOPHA BARON: Esopha baron is normal in outlin e, mucosa l patter n and calibe r. No strict ure is noted. The 13 mm tablet passed throug h the esopha baron but hesita tom at the GE juncti on for a few minute s. At the GE juncti on, there is sugges tion of a Franky ki ring. ESOPHA GEAL MOTILI TY: Esopha geal motili ty is abnorm al with absent perist altic stripp ing wave and second dayanara perist altic waves. A few small tertia ry waves are seen. ASSESS MENT FOR REFLUX : A small slidin g hiatus hernia is seen. No gastro esopha geal reflux was noted. IMPRES INDRA: 1. Appear ance is of sympto matic Franky ki ring. The hesita tion of the tablet at this level produc ed the patien t's sympto ms in the region of the throat . 2. 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 Interp reted By: Liz Lucero MD Electr onical ly Signed By: Liz Lucero MD on 022 2:40 PM [facility] [address] [place], [address], 10/13/2021 12:10:50 10/09/19 22 07/21/2021 cardi ac monit or No observ ation record ed. [facility] (Med Record) [address], [place], [address], 10/20/2021 14:41:29 Result Notes None recorded. Procedures Surgical History None recorded. Imaging Results Imaging Date Name Status LastModified by Organiz ation Details LastModified Time 09/28/2021 RF, esophagus, w/ contrast PO completed [facility] [address] [facility], [place], [address], 10/13/2021 12:10:50 07/21/2021 cardiac monitor technician completed [facility] (Med Record) [address], [place], [address], 10/20/2021 14:41:29 Procedure Notes None recorded. Medical Equipment None Reported. Allergies Allergen ID Allergen Name Allergen Category Reaction Reaction Severity Criticality Documentation Date Start Date Code Code System Note Provider Name and Address Organization Details Recorded Time 782970 penicilla mine medicatio n Not available Not available Not available 09/16/2021 [address] [facility] 2 14:08:13 013464 Product containin g 3-hydroxy -3-methyl glutaryl- coenzyme A reductase inhibitor (product) medicatio n Not available Not available Not available 09/16/2021 [address] [facility] 2 14:08:27 Medications Name Sig Start Date Stop Date Status Note LastModified by Organization Details LastModified Time bisoprolol fumarate 10 mg tablet Take 1 tablet every day by oral route. active Not Available Not Available No t Available pantoprazole 40 mg tablet,delaye d release Take 1 tablet every day by oral route. active Not Available Not Available No t Available escitalopram 10 mg tablet Take 1 tablet every day by oral route. active Not Available Not Available No t Available magnesium active Not Available Not Arelis ilable Not Available tizanidine active Not Available Not Av ailable Not Available aspirin active Not Available Not Avail able Not Available clopidogrel active Not Available Not A vailable Not Available furosemide active Not Available Not Av ailable Not Available carvedilol 10/12 completed Not Available Not Available Not Available verapamil active Not Available Not Arelis ilable Not Available lansoprazole 10/12 completed Not Available Not Available Not Available ezetimibe active Not Available Not Arelis ilable Not Available ranolazine active Not Available Not Av ailable Not Available Savella active Not Available Not Avail able Not Available Jardiance active Not Available Not Arelis ilable Not Available Novolin 70-30 FlexPen U-100 active Not Available Not Availabl e Not Available Vitals Date Recorded Body height Body mass index (BMI) Body weight Heart rate Respiratory rate Systolic blood pressure Diastolic blood pressure Provider Name and Address Organization Details Last Updated DateTime 2 162.56 cm 36.2 kg/m2 19816.9 9 g 61 /min 16 /min 137 mm[Hg] 66 mm[Hg] Roselisa Medina [facility] 2 14:07:43 Date Recorded Body weight Heart rate Respiratory rate Systolic blood pressure Diastolic blood pressure Provider Name and Address Organization Details Last Updated DateTime 3 86764.8 8 g 70 /min 17 /min 122 mm[Hg] 52 mm[Hg] Nancyporsche [place] [facility] 3 15:00:14 Social History Question Answer Notes LastModified by Organizat ion Details LastModified Time Tobacco Smoking Status Never Smoker [facility] 09/16/2021 14:14:34 What Is Your Level Of Alcohol Consumption? None Information not available 09/16/2021 What Is Your Relationship Status? Information not available 09/16/2021 Do You Or Have You Ever Used Any Other Forms Of Tobacco Or Nicotine? No Information not available 09/16/2021 Sex: Female Functional Status None recorded. Mental Status None recorded. Family History Relationship Description Onset Age of this Age Resolved Age Notes LastModified by Organization Details LastModified Time Unspecified Relation Blood coagulation disorder tshouse Not available 2021 14:13:07 Unspecified Relation History of polyp of colon tshouse Not available 2021 14:13:32 Unspecified Relation Heart disease tshouse Not available 2021 14:13:46 Unspecified Relation Hypercholest erolemia tshouse Not available 2021 14:13:56 Unspecified Relation Hypertensive disorder tshouse Not available 2021 14:14:03 Unspecified Relation Disorder of gastrointest inal tract tshouse Not available 09/16 14:14:22 Medical History Condition Response Diabetes Y Anxiety Disorder Y Arthritis Y Cancer Y GI Problems Y Depression Y Radiation Therapy Y Difficulty Swallowing Y Sleep Disorder Y High Cholesterol Y GERD/Reflux Y Heart Disease Y Hypertension Y Gynecological HistoryNo gynecological history recorded. Obstetrics History GPAL:G 0 P 0 0 0 0 Past Encounters Encounter ID Performer Location Encounter Start Date Encounter Closed Date Diagnosis/Indication Diagnosis SNOMED-CT Code Diagnosis ICD10 Code Diagnosis Note [id number] CHOCO CÁRDENAS MD GASTRO [place] [address] [facility], [place] [address] 1 09/16/2021 13:45:01 09/16/2021 14:42:34 Chronic idiopathic constipation 48808653 K59.04 Start miralax once dailyRecom mend daily fiber intake to keep atleast 25-30 gm fiber daily Dysphagia 79398289 R13.1 0 Will arrange barium esophagram with tabletObta in modified barium study resultsWil l need to arange EGD evaluation of dysphagia. Family his tory of cancer of colon 707099808 Z80.0 Will need to arrange colonoscop y for high risk screening. Will obtain her most recent cardiology records with 2D echo prior to completing outpatient endoscopy. [id number] Carmela Pateltt SURGERY SCHEDULE [address] [place] [address] 1 10/18/2021 07:10:51 10/18/2021 07:11:19 [id number] [place] [address] [place] [address] 1 10/12/2022 14:48:45 10/12/2022 15:38:47 Altered bowel function 09728782 R19.4 Samples given to her to try linzess 72 mcg once daily. She will call back soon to let me know if dose was effective. Recommende d fiber supplement ation with citrucel, 1-2 tbsp daily to ensure up to 25 gm of fiber daily Health Concerns Section Related Observation LastModified by Organization Detai ls LastModified Time None Recorded Concern Status LastModified by Organization Details LastModified Time None Recorded Advance Directives Directive None Recorded Payers Encounter Date Sequence Insurance Name Policy Number Policy Ni Covered Member ID Ni Member ID Guarantor Name 09/16/2021 1 [employer] (MEDICARE REPLACEMENT/A DVANTAGE - PPO) Nichole Morales [id number] Nichole Morales 10/18/2021 1 [employer] (MEDICARE REPLACEMENT/A DVANTAGE - PPO) Nichole Morales [id number] Nichole Morales 10/12/2022 1 [employer] (MEDICARE REPLACEMENT/A DVANTAGE - PPO) Nichole Morales [id number] Nichole Morales Notes Date Note Type Note Provider Name and Address Organization Details Recorded Time 09/16/2021 text/html Reason for new p atient visit: DysphagiaReferring physician: Amita Deleon MD (neurology)Primary care provider: Nola Fay APRN The patient is a 70 year old who is being seen as a new patient for dysphagia symptom. She has a past medical history CKD stage III, CAD with CABG n 2019, JANIS, HTN, fibromyalgia, breast cancer, DM type 2, possible Parkinson Disease. She has had dysphagia for 6 months. She feels foods sticking in mid esophagus. She has dysphagia to solid foods, but not to liquids. In conversation she appears to have had a modified barium study that was abnormal completed recently thru [facility]. I do not have that record for review. She denies weight loss. She denies abdominal pain. She has chronic constipation for several years. Her last colonoscopy was completed thru [facility] about 10 years ago. She does not recall having had colon polyps. Her father had colon cancer. She did a cologaurd 3-4 years ago that was reportedly negative. Her last echo was about 2 years ago at [facility], she does not recall a having a history of CHF. CHOCO CÁRDENAS MD [address] [place] [address], [phone], [place] [facility] 09/16/2021 14:42:51 10/12/2022 text/html Reason for visit : alternating bowel habits Has chronic alternating bowel habits. Seems to have more constipation than diarrhea. Can have abdominal discomfort related to bloating. Tried miralax and fiber without improvement.She has a family history of colon cancer in father. Colonoscopy in October 2021 was normal, preparation was noted to be fair in the proximal colon. Has history of dyshpagia symptom. Barium esophagram showed severe presybesophagus and Schatzki ring. EGD was normal, she had empiric esophageal dilatation with tts balloon. She has history of Parkinsons disease. Has had modified barium study completed thru [facility] in past. He dysphagia symptoms seems improved. Has been having mid chest pain to epigastric area. Pain can radiate into RUQ. Pain can be worse with eating. She recent had a LHC with Dr. Betts and had a cardiac stent placed. She had an ultrasound of her gallbladder and liver by Dr. Jeff in general surgery. She was told he would do a cholecystectomy, but wanted to wait 6 months due to recent having LHC with cardiac stents. She can have a fullness feeling in chest after eating. She has use of pantoprazole 40 mg once daily. CHOCO CÁRDENAS MD [address] [place] [address], [phone], [facility] 10/12/2022 15:36:51 OBGyn Episode No OBEpisode recorded.
--- OUTSIDE RECORDS SUMMARY | 2024-09-20 09:08 | XMS_ITS | Clinical Summary ---
Author Organization [facility] , [facility] Address [address] [place] [address] Phone Care Team Providers Care Meter Tester Polyphase Name Role Phone CM DIALLO, СВЕТЛАНА Unavailable [phone] Sania DIALLO, Brayden Ariza Primary Care Provider [phone] Reason for Visit and Chief Complaint Epidural Steroid Injection Problems Includes: Problems addressed during this encounter and other active Problems All Visits Onset Date Resolved Date Provider Condition S tatus Neck Pain 09/23/2021 Juvenal Healy MD Active Last Documented On 2 8:43AM ; [facility], [facility] Lower Back Pain 01/14/2021 Juvenal Healy MD Act girish Last Documented On 1 9:59AM ; [facility], [facility] Bone Pain in the Left Hand 04/15/2016 Brayden Lui MD Active Last Documented On 6 9:03AM ; [facility], [facility] Plan of Treatment No Plan of Treatment Recorded Assessments Includes: Assessments from this encounter No Assessments Recorded Medical Equipment - Implanted Devices Includes: Current Devices No Medical Equipment Recorded Medications Includes: Medications discussed during this encounter and other current Medications Current Medications (continue as prescribed) Furosemide 20 MG Oral Tablet 01/12/2021 Provider: Diagnosis: Last Documented On 1 3:54PM By Mary Mims ; [facility], [facility] NovoLIN 70/30 ReliOn (70-30) 100 UNIT/ML Subcutaneous Suspension 01/08/2021 Provider: СВЕТЛАНА PABON MD Diagnosis: Last Documented On 1 3:54PM By Mary Mims ; [facility], [facility] Repatha SureClick 140 MG/ML Subcutaneous Solution Auto-injector 01/03/2021 Provider: Diagnosis: Last Documented On 3:54PM By Mary Mims ; [facility], [facility] tiZANidine HCl 4 MG Oral Tablet 12/23/2020 Provider: СВЕТЛАНА PABON MD Diagnosis: Last Documented On 3:54PM By Mary Mims ; [facility], [facility] ARIPiprazole 2 MG Oral Tablet 12/19/2020 Provider: СВЕТЛАНА PABON MD Diagnosis: Last Documented On 3:54PM By Mary Mims ; [facility], [facility] Ezetimibe 10 MG Oral Tablet 12/02/2020 Provider: СВЕТЛАНА PABON MD Diagnosis: Last Documented On 3:54PM By Mary Mims ; [facility], [facility] Carvedilol 25 MG Oral Tablet 12/02/2020 Provider: Diagnosis: Last Documented On 3:54PM By Mary Mims ; [facility], [facility] Escitalopram Oxalate 20 MG Oral Tablet 11/25/2020 Pr ovider: СВЕТЛАНА PABON MD Diagnosis: Last Documented On 3:54PM By Mary Mims ; [facility], [facility] Savella 50 MG Oral Tablet 11/22/2020 Provider: ST HERLINDA PABON MD Diagnosis: Last Documented On 3:54PM By Mary Mims ; [facility], [facility] Lansoprazole 30 MG Oral Capsule Delayed Release 2020 Provider: СВЕТЛАНА PABON MD Diagnosis: Last Documented On 1 3:54PM By Mary Mims ; [facility], [facility] Clopidogrel Bisulfate 75 MG Oral Tablet 10/29/2020 P rovider: Diagnosis: Last Documented On 3:54PM By Mary Mims ; [facility], [facility] [place] 7.5-325 MG Tablet 05/16/2016 Provider: Oliver Lui MD Diagnosis: 1-2 po q6h prn pain Last Documented On 6 12:33PM By Santa Bedoya ; [facility] Medications Administered Includes: Administered Medications from this [...] Active Last Documented On 2 9:32AM ; [facility] Encounters Encounter Provider Location Date Check-In Time Check-Out Time Diagnosis Epidural Steroid Injection Juvenal Healy MD [facility] 10/07/19 22 11:12AM 11:29AM Insurance Includes: Active Insurance Policies Plan Name Member ID Group # Subscriber Relationship Effect girish Dates 1 - [employer]IC[employer] [id number] Nichole Morales Self 06/12/2017 - Unknown Clinical Notes Includes: Clinical Notes from this encounter No Clinical Notes Recorded
--- OUTSIDE RECORDS SUMMARY | 2024-09-20 09:09 | XMS_ITS | Clinical Summary ---
Author Organization [facility] Address [address] [place] [address] Phone Care Team Providers Care Day Care Worker Name Role Phone CM DIALLO, СВЕТЛАНА Unavailable [phone] Sania DIALLO, Brayden Ariza Primary Care Provider [phone] Reason for Visit and Chief Complaint The Chief Complaint is: Neck pain Problems Includes: Problems addressed during this encounter and other active Problems Current Visit Onset Date Resolved Date Provider Conditio n Status Lower Back Pain 01/14/2021 Juvenal Healy MD Act girish Last Documented On 1 9:59AM ; [facility] Past Visits Onset Date Resolved Date Provider Condition Status Neck Pain 09/23/2021 Juvenal Healy MD Active Last Documented On 2 8:43AM ; [facility] Bone Pain in the Left Hand 04/15/2016 Brayden Lui MD Active Last Documented On 6 9:03AM ; [facility] Plan of Treatment Fall Risk Assessment: This [...] with the patient. - Last Documented On 11/01/2021 9:56AM ; [facility] Patient was seen by myself Bunny Croft PA-C. Patient will follow up as needed recommend if she wants another epidural she can call to schedule that for her neck but right now she is doing fine and things are manageable continue with exercises on her own - Last Documented On 11/01/2021 9:56AM ; [facility], [facility] Instructions to patient Lose weight Last Documented On 2 9:33AM ; [facility] Assessments Includes: Assessments from this encounter Findings C4-C7 DDD - Last Documented On 11/01/2021 9:56AM ; [facility] Instructions Includes: Instructions from this encounter Instructions to patient Lose weight Last Documented On 2 9:33AM ; [facility] Medical Equipment - Implanted Devices Includes: Current Devices No Medical Equipment Recorded Medications Includes: Medications discussed during this encounter and other current Medications Current Medications (continue as prescribed) Furosemide 20 MG Oral Tablet 01/12/2021 Provider: Diagnosis: Last Documented On 3:54PM By Mary Mims ; [facility], [facility] NovoLIN 70/30 ReliOn (70-30) 100 UNIT/ML Subcutaneous Suspension 01/08/2021 Provider: СВЕТЛАНА PABON MD Diagnosis: Last Documented On 3:54PM By Mary Mims ; [facility], [facility] Repatha SureClick 140 MG/ML Subcutaneous Solution Auto-injector 01/03/2021 Provider: Diagnosis: Last Documented On 3:54PM By Mary Mims ; [facility], [facility] tiZANidine HCl 4 MG Oral Tablet 12/23/2020 Provider: СВЕТЛАНА PABON MD Diagnosis: Last Documented On 3:54PM By Mary Mims ; [facility], [facility] ARIPiprazole 2 MG Oral Tablet 12/19/2020 Provider: СВЕТЛАНА PABON MD Diagnosis: Last Documented On 3:54PM By Mary Mims ; [facility], [facility] Ezetimibe 10 MG Oral Tablet 12/02/2020 Provider: СВЕТЛАНА PABON MD Diagnosis: Last Documented On 3:54PM By Mary Mims ; [facility], [facility] Carvedilol 25 MG Oral Tablet 12/02/2020 Provider: Diagnosis: Last Documented On 3:54PM By Mary Mims ; [facility] Escitalopram Oxalate 20 MG Oral Tablet 11/25/2020 Pr ovider: СВЕТЛАНА PABON MD Diagnosis: Last Documented On 1 3:54PM By Mary Mims ; [facility] Savella 50 MG Oral Tablet 11/22/2020 Provider: [facility] HERLINDA PABON MD Diagnosis: Last Documented On 1 3:54PM By Mary Mims ; [facility] Lansoprazole 30 MG Oral Capsule Delayed Release 2020 Provider: СВЕТЛАНА PABON MD Diagnosis: Last Documented On 1 3:54PM By Mary Mims ; [facility] Clopidogrel Bisulfate 75 MG Oral Tablet 10/29/2020 Mela alvarezder: Diagnosis: Last Documented On 1 3:54PM By Mary Mims ; [facility] Ezel 7.5-325 MG Tablet 05/16/2016 Provider: Oliver Lui MD Diagnosis: 1-2 po q6h prn pain Last Documented On 6 12:33PM By Santa Bedoya ; [facility] Past Medications on file Ezel 5-325MG Oral Tablet 10/27/2017 - 11/26/2017 Prov ider: Juvenal Healy MD Diagnosis: 1-2 po q 4-6h prn for pain surgery 11/01/17 Last Documented On 8 2:12PM By Annalise Arias ; [facility] Ezel 5-325MG Oral Tablet 09/15/2017 - 10/15/2017 Prov ider: Juvenal Healy MD Diagnosis: 1-2 po q 4-6h prn for pain surgery 09/20/17 Last Documented On 8 9:44AM By Annalise Arias ; [facility] Lortab 7.5-500 MG OR TABS 02/06/2012 - 02/11/2012 Prov ider: Brayden Lui MD Diagnosis: Last Documented On 2 12:46PM By Samaria Alonzo ; [facility] Clindamycin HCl 150 MG OR CAPS 02/06/2012 - 02/09/2012 Provider: Brayden Lui MD Diagnosis: Last Documented On 2 12:46PM By Samaria Alonzo ; [facility] Medications Administered Includes: Administered Medications from this encounter No Administered Medications Recorded Vital Signs Includes: Vital Signs from this encounter Vital Name 11/01/2021 09:45A Blood Pressure Sitting (mmHg) 111/43 Pulse Rate-Sitting (bpm) 66 Height (in) 63 Weight (lb) 215 Body Mass Index (kg/m2) 38.1 Body Surface Area (m2) 2.0 Note: mg Last Documented: On 11/01/2021 9:45AM ; [facility] Results Includes: Results discussed during this encounter No Results Recorded For Specified Dates History of Present Illness Includes: History of Present Illness from this encounter BRANDON Morales is a 71 year old female. - Allergy list reviewed - Problem list reviewed - Medication reconciliation performed - Medication list reviewed - Medication list reviewed with patient Patient is here today for follow-up of her cervical DDD she has diffuse spondylosis from C4-C7 epidural injection on October 06 helped her she got about 95% relief she feels it is manageable. She says it helps with the stiffness and pain. She is doing exercises with therapy right now Social History Description Last Updated Not a current smoker. 01/14/2021 Last Documented On 2 9:32AM ; [facility] Recent change in diet 01/14/2021 Last Documented On 2 9:32AM ; [facility] Non-smoker 01/14/2021 Last Documented On 2 9:32AM ; [facility] Caffeine use 10/04/2017 Last Documented On 2 9:32AM ; [facility] Exercising regularly 10/04/2017 Last Documented On 2 9:32AM ; [facility] No tobacco use 10/04/2017 Last Documented On 2 9:32AM ; [facility] Not a current smoker 10/04/2017 Last Documented On 2 9:32AM ; [facility] Not using alcohol 10/04/2017 Last Documented On 2 9:32AM ; [facility] Not using drugs 10/04/2017 Last Documented On 2 9:32AM ; [facility] Smoking status : Never smoker 10/04/2017 Last Documented On 2 9:32AM ; [facility], [facility] Procedures and Surgical History Includes: Procedures from this encounter Procedures Code Diagnosis Performing Provider Service L ocation Service Date use of tobacco assessment performed 1000F Last Documented On 2 9:33AM ; [facility] no influenza immunization patient refuse d Last Documented On 2 9:45AM ; [facility] patient screened for future fall risk 3288F Last Documented On 2 9:33AM ; [facility] Surgical History Last Updated History of hysterectomy 10/04/2017 Last Documented On 2 9:32AM ; [facility] Medical History Includes: Medical History addressed during this encounter Description Last Updated No recent immunization for flu 2 Last Documented On 2 9:56AM ; [facility] No recent immunization for pneumococcal pneumonia 11/01/2021 Last Documented On 2 9:56AM ; [facility] Arthritis 01/14/2021 Last Documented On 2 9:32AM ; [facility] Heartburn / Acid Reflux 01/14/2021 Last Documented On 2 9:32AM ; [facility] History of Cancer 01/14/2021 Last Documented On 2 9:32AM ; [facility] History of heart disease 01/14/2021 Last Documented On 2 9:32AM ; [facility] Hypertension 01/14/2021 Last Documented On 2 9:32AM ; [facility] Heart surgery 01/14/2021 Last Documented On 2 9:32AM ; [facility] Hysterectomy 01/14/2021 Last Documented On 2 9:32AM ; [facility] Past Surgical History: trigger finger SX 01/14/2021 Last Documented On 2 9:32AM ; [facility], [facility] Past medical history non-contributory ~h igh cholesterol ~heartburn 10/19/2017 Last Documented On 2 9:32AM ; [facility] A history of cancer 10/04/2017 Last Documented On 2 9:32AM ; [facility] Arthritic joint problems 10/04/2017 Last Documented On 2 9:32AM ; [facility] History of depression 10/04/2017 Last Documented On 2 9:32AM ; [facility] History of diabetes mellitus 10/04/2017 Last Documented On 2 9:32AM ; [facility] History of diverticulitis of colon 10/04 Last Documented On 2 9:32AM ; [facility] Intermittent hypertension 10/04/2017 Last Documented On 2 9:32AM ; [facility] Family History Includes: Family History addressed during this encounter Description Last Updated stroke/seizure: brother 10/04/2017 Last Documented On 2 9:32AM ; [facility] Family history of cancer father/sister 0 10/04/2017 Last Documented On 2 9:32AM ; [facility] Family history of heart disease mother 0 10/04/2017 Last Documented On 2 9:32AM ; [facility] Family history of hypertension mother/fa ther/sister/brother 10/04/2017 Last Documented On 2 9:32AM ; [facility] Family history of thromboembolic disease mother 10/04/2017 Last Documented On 2 9:32AM ; [facility] Review of Systems Includes: Review of Systems [...] of seasonal allergic reaction. REVIEWED W/ PATIENT 11/01/2021 Mental Status Includes: Mental Status from this encounter Description No anxiety Functional Status Includes: Functional Status from this encounter No Functional Status Recorded Physical Exam Includes: Physical Exam from this encounter Allergies Includes: Active Allergies Substance Type Reaction Onset Date Resolved Date Statu s Penicillins Allergy 01/23/2012 Active Last Documented On 2 9:32AM ; [facility] Encounters Encounter Provider Location Date Check-In Time Check- Out Time Diagnosis Follow Up Bunny Croft PA-C [facility] 2 9:29AM 9:55AM Insurance Includes: Active Insurance Policies Plan Name Member ID Group # Subscriber Relationship Effect girish Dates 1 - [employer] [id number] Nicholemichael Keane 06/12/2017 - Unknown Clinical Notes Includes: Clinical Notes from this encounter No Clinical Notes Recorded
--- NOTE | 2024-09-20 09:15 | XR_ITS ---
FINAL REPORT TECHNIQUE: Bone densitometry calculations of the lumbar spine and left hip were obtained. CLINICAL HISTORY: Screening for osteoporosis FINDINGS: Using L1-4, the bone mineral density of the spine is 0.915 g/cm2, corresponding to T-score of -1.2. Using the left hip, the bone mineral density of the femoral neck is 0.667 g/cm2, corresponding to a T-score of -1.6. Using the right hip, the bone mineral density of the femoral neck is 0.728 g/cm2, corresponding to a T-score of -1.1. NOTE: T-score: Standard deviation compared with peak bone mass of young adult mean. *Following the recommendations of the International Society of Bone densitometry, classification of hip BMD is based on the lower of two T-scores; total hip or femoral neck. IMPRESSION: Diminished bone mineral density of the lumbar spine and both hip consistent with osteopenia. FRAX data reports fracture risk of 10% for major osteoporotic fracture and 1.9% for hip fracture. Reviewed, Interpreted and Dictated by Scott Wong MD Transcribed by Nurys Brown Authenticated and [facility]
== END 2024-09-20 23:59 | disposition home or self-care (01) ==
LOC: RAD 09:07
PROVIDERS: PCP Nurse Practitioner Family; Visit Provider Nurse Practitioner Family
DX: Z13.820 Encounter for screening for osteoporosis (principal); M85.89 Other specified disorders of bone density and structure, multiple sites
CPT/HCPCS: 77080

== ENCOUNTER 2024-10-08 10:01 | Outpatient (CLI) | payer MEDICARE, SELFPAY ==
[2024-10-08 10:40] LABS: Creatinine,Urine Random 44 mg/dL (Not Estab.)
[2024-10-08 11:43] LABS: Intact Parathyroid Hormone 47.6 pg/mL (7.5-53.5)
[2024-10-08 11:48] LABS: 25-OH Vitamin D, Total 40.3 ng/mL (30-100)
== END 2024-10-08 23:59 | disposition home or self-care (01) ==
LOC: LAB 10:01
PROVIDERS: PCP Nurse Practitioner Family; Visit Provider Internal Medicine Nephrology
DX: E11.22 Type 2 diabetes mellitus with diabetic chronic kidney disease (principal); I12.9 Hypertensive chronic kidney disease with stage 1 through stage 4 chronic kidney disease, or unspecified chronic kidney disease; N18.32 Chronic kidney disease, stage 3b; E21.3 Hyperparathyroidism, unspecified
CPT/HCPCS: 36415; 82306; 82570; 83970; 84156

== ENCOUNTER 2024-10-14 16:23 | Outpatient (CLI) | payer MEDICARE, SELFPAY ==
[2024-10-14 16:54] LABS: Coronavirus 19, PCR Not Detected (NotDetected); Human Rhinovirus Not Detected (NotDetected); Influenza A, PCR Not Detected (NotDetected); Influenza B, PCR Not Detected (NotDetected); Respiratory Syncytial Virus Not Detected (NotDetected)
== END 2024-10-14 23:59 | disposition home or self-care (01) ==
LOC: LAB.DROPOF 10-15 10:24
PROVIDERS: PCP Nurse Practitioner Family; Visit Provider Nurse Practitioner Family
DX: J02.9 Acute pharyngitis, unspecified (principal); H92.01 Otalgia, right ear; R05.9 Cough, unspecified; K14.6 Glossodynia; S10.12XA Blister (nonthermal) of throat, initial encounter
CPT/HCPCS: 87070; 87631

== ENCOUNTER 2024-10-28 14:11 | Outpatient (CLI) | payer MEDICARE, SELFPAY ==
--- OUTSIDE RECORDS SUMMARY | 2024-10-28 14:14 | XMS_ITS | Data Portability ---
Author Organization [place] [facility] Address [address] [place] [address] Assessment No assessment recorded. Plan of Treatment [...] Repor t NAME: NICHOLE MORALES PATH. :ST-2 [id number] Copy to: Diagn osis: A) Gastr ic biops y: -Mild chron ic gastr itis. -Immu nosta in for Helic obact er pylor i: Negat merline. 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 -Foca l jorge luis t cell intes tinal metap lasia (see comme nt). Comme nt: Intes tinal metap lasia can be seen with [facility]'s esoph nafisa, or with intes tinal [...] : B SPECI MEN REMOV AL: 7:[address] D IN FIXAT MERLINE: [...] 14:24 Page 1 of 1 Not Available [facility] [address] [place] [address], [place], [address], 10/19/2021 14:26:02 09/29/19 22 09/28/2021 RF, esoph nafisa, w/ contr ast PO [facility] [address] [place] [address] Sidra matos Name: NICHOLE matos : 09/18/18 [...] Liz Lucero MD on 022 2:40 PM [facility] Radiology [facility] [address] [place], [address], 10/13/2021 12:10:50 10/09/19 22 07/21/2021 cardi ac monit or No observ ation record ed. [facility] (Med Record) [address], [place], [address], 10/20/2021 14:41:29 Result Notes None recorded. Procedures Surgical History None recorded. Imaging Results Imaging Date Name Status LastModified by Organiz ation Details LastModified Time 09/28/2021 RF, esophagus, w/ contrast PO completed [facility] [address] [facility], [place], [address], 10/13/2021 12:10:50 07/21/2021 monitoring engineer completed [facility] (Med Record) [address], [place], [address], 10/20/2021 14:41:29 Procedure Notes None recorded. Medical Equipment None Reported. Allergies Allergen ID Allergen Name Allergen Category Reaction Reaction Severity Criticality Documentation Date Start Date Code Code System Note Provider Name and Address Organization Details Recorded Time 400526 penicilla mine medicatio n Not available Not available Not available 09/16/2021 7975 RxNorm [facility] 2 14:08:13 915620 Product containin g 3-hydroxy -3-methyl glutaryl- coenzyme A reductase inhibitor (product) medicatio n Not available Not available Not available 09/16/2021 63698 009 SNOMED [facility] 2 14:08:27 Medications Name Sig Start [...] Updated DateTime 2 162.56 cm 36.2 kg/m2 25688.9 9 g 61 /min 16 /min 137 mm[Hg] 66 mm[Hg] Rose Medina [facility] 2 14:07:43 Date Recorded Body weight Heart rate Respiratory rate Systolic blood pressure Diastolic blood pressure Provider Name and Address Organization Details Last Updated DateTime 3 89751.8 8 g 70 /min 17 /min 122 mm[Hg] 52 mm[Hg] Nancydustin Hamilton [facility] 3 15:00:14 Social History Question Answer Notes LastModified by Organizat ion Details LastModified Time Tobacco Smoking Status Never Smoker Roselisa Medina [facility] 09/16/2021 14:14:34 What Is Your Relationship Status? Information not available 09/16/2021 Sex: Female Functional Status Question Answer Note LastModified by Organization D etails LastModified Time Do you or have you ever used any other forms of tobacco or nicotine? No Information not available 09/16/2021 What is your level of alcohol consumption? None Information not available 09/16/2021 Mental Status None recorded. Family History Relationship [...] available 09/16 14:14:22 Medical History Condition Response Anxiety Disorder Y Diabetes Y Arthritis Y Cancer Y Depression Y GI Problems Y Radiation Therapy Y Difficulty Swallowing Y Sleep Disorder Y GERD/Reflux Y High Cholesterol Y Heart Disease Y Hypertension Y Gynecological HistoryNo gynecological history recorded. Obstetrics History GPAL:G 0 P 0 0 0 0 Past Encounters Encounter ID Performer Location Encounter Start Date Encounter Closed Date Diagnosis/Indication Diagnosis SNOMED-CT Code Diagnosis ICD10 Code Diagnosis Note [id number] CHOCO CÁRDENAS MD GASTRO [facility] [address] [place] [address] 1 09/16/2021 13:45:01 09/16/2021 14:42:34 Chronic idiopathic constipation 86803113 K59.04 Start miralax once dailyRecom mend daily fiber intake to keep atleast 25-30 gm fiber daily Dysphagia 33584566 R13.1 0 Will arrange barium esophagram with tabletObta in modified barium study resultsWil l need to arange EGD evaluation of dysphagia. Family his tory of cancer of colon 605554268 Z80.0 Will need to arrange colonoscop y for high risk screening. Will obtain her most recent cardiology records with 2D echo prior to completing outpatient endoscopy. [id number] CHOCO CÁRDENAS MD SURGERY SCHEDULE [address] [place] [address] 1 10/18/2021 07:10:51 10/18/2021 07:11:19 [id number] CHOCO CÁRDENAS MD GASTRO [facility] [address] [facility], [place] [address] 1 10/12/2022 14:48:45 10/12/2022 15:38:47 Altered bowel function 48559583 R19.4 Samples given to her to try [...] Recorded Advance Directives Directive None Recorded Payers Insurance Date Sequence Insurance Name Policy Number Policy Ni Covered Member ID Ni Member ID Guarantor Name 10/10/2022 1 [employer] (MEDICARE REPLACEMENT/A DVANTAGE - PPO) Nichole Morales [id number] Nichole Morales 09/16/2021 1 [place] Nichole Morales [id number] Nichole Morales Notes Date Note Type Note [...] study that was abnormal completed recently thru [facility]. I do not have that record for review. She denies weight loss. She denies abdominal pain. She has chronic constipation for several years. Her last colonoscopy was completed thru [facility] about 10 years ago. She does not recall having had colon polyps. Her father had colon cancer. She did a cologaurd 3-4 years ago that was reportedly negative. Her last echo was about 2 years ago at [facility], she does not recall a having a history of CHF. CHOCO CÁRDENAS MD [address] [place] [address], [phone], [facility] 09/16/2021 14:42:51 10/12/2022 text/html Reason for visit [...] Has had modified barium study completed thru [facility] in past. He dysphagia symptoms seems [...] 40 mg once daily. CHOCO CÁRDENAS MD [address] [place] [address], [phone], [facility] 10/12/2022 15:36:51 OBGyn Episode No OBEpisode recorded.
[2024-10-28 14:16] LABS: MANUAL DIFFERENTIAL MANUAL DIFFERENTIAL (MANUAL DIFF)
[2024-10-28 15:07] LABS: Basophils % 0.4 % (0.1-2.0); Eosinophils % 0.7 % (0.1-12.0); Hematocrit 36.7 % (37.0-47.0); Hemoglobin 12.2 g/dL (12.2-16.2); Lymphocytes # 2.4 K/mm3 (0.7-4.5); Lymphocytes % 42.3 % (10-50); Mean Corpuscular HGB Conc 33.2 g/dL (31.8-35.4); Mean Corpuscular Hemoglobin 29.2 pg (27.0-31.2); Mean Corpuscular Volume 87.8 fl (81-99); Mean Platelet Volume 10.1 fl (7.4-10.4); Monocytes # 0.6 K/mm3 (0.1-1.0); Monocytes % 10.4 % (1.7-9.3); Neutrophils # 2.5 K/mm3 (1.8-7.8); Platelet Count 299 K/mm3 (142-424); Red Blood Count 4.18 M/mm3 (4.20-5.40); Red Cell Distribution Width 13.6 % (11.5-17.5); White Blood Count 5.7 K/mm3 (4.8-10.8)
[2024-10-28 15:46] LABS: Lymphocytes % 43 % (10-50); Monocytes % 7 % (2-9); Neutrophils % 47 % (42-76); Platelet Estimate Normal; RBC Morphology Normal; Total Cells Counted 100
[2024-10-28 15:47] LABS: Erythrocyte Sedimentation Rate 19 mm/hr (0-30)
[2024-10-28 15:55] LABS: Albumin Level 4.4 g/dl (3.5-5.0); Chloride 101 mmol/L (98-107); Potassium 4.7 mmoL/L (3.5-5.1); Sodium 132 mmol/L (136-145)
[2024-10-28 15:58] LABS: Alanine Aminotransferase 31 U/L (12-78); Alkaline Phosphatase 51 U/L (38-126); Anion Gap 13.7 mEq/L (5-15); Aspartate Amino Transferase 31 U/L (14-36); Bilirubin,Total 0.4 mg/dl (0.2-1.3); Blood Urea Nitrogen 31 mg/dl (7-17); Calcium 9.6 mg/dl (8.4-10.2); Carbon Dioxide 22 mmol/L (22.0-30.0); Estimated Glomerular Filt Rate 32 ml/min (>60); GFR (African American) 38 ML/MIN (>60); Globulin 2.2 g/dL (1.3-3.2); Glucose 99 mg/dl (74-100); Iron 68 ug/dL (37-170); Total Protein,Serum 6.6 g/dl (6.3-8.2)
[2024-10-28 16:07] LABS: Total Iron Binding Capacity 400 ug/dL (265-497)
[2024-10-28 16:28] LABS: Thyroid Stimulating Hormone 2.64 uIU/mL (0.465-4.68)
[2024-10-29 13:17] LABS: Anti-Centromere B Antibodies <0.2 AI (0.0-0.9); Anti-DNA (DS) Ab Qn 3 IU/mL (0-9); Anti-Jo-1 <0.2 AI (0.0-0.9); Anti-Smith Antibody <0.2 AI (0.0-0.9); Antichromatin Antibodies <0.2 AI (0.0-0.9); Antiscleroderma-70 Antibodies <0.2 AI (0.0-0.9); HBsAg Screen Negative (Negative); HCV Ab Non Reactive (Non Reactive); Hep A Ab, IGM Negative (Negative); Hep B Core Ab, IgM Negative (Negative); RNP Antibodies <0.2 AI (0.0-0.9); Sjogren's Anti-SS-A <0.2 AI (0.0-0.9); Sjogren's Anti-SS-B <0.2 AI (0.0-0.9)
[2024-10-29 14:13] LABS: Endomysial IgA Antibody Negative (Negative)
[2024-10-29 15:11] LABS: Deamidated Gliadin Abs, IgA 3 units (0-19); Deamidated Gliadin Abs, IgG 1 units (0-19); Tissue Transglutaminase IgA Ab <2 U/mL (0-3); Tissue Transglutaminase IgG Ab <2 U/mL (0-5)
[2024-10-31 09:23] LABS: Reticulin IgA Antibody Negative titer (Neg:<1:2.5)
== END 2024-10-28 23:59 | disposition home or self-care (01) ==
LOC: LAB 14:12
PROVIDERS: PCP Nurse Practitioner Family; Visit Provider Nurse Practitioner
DX: Z11.59 Encounter for screening for other viral diseases (principal); K14.6 Glossodynia; K76.0 Fatty (change of) liver, not elsewhere classified; E21.3 Hyperparathyroidism, unspecified
CPT/HCPCS: 36415; 80053; 80074; 82746; 83516; 83540; 83550; 84443; 85007; 85014; 85018; 85048; 85049; 85651; 86140; 86225; 86235; 86255; 86256; 86803

== ENCOUNTER 2024-11-05 14:32 | Observation (INO) | payer MEDICARE, SELFPAY ==
[2024-11-05] VITALS (11 sets, daily range): BP systolic 115–164; BP diastolic 49–78; PULSE 60–80; RESP 16–20; TEMP 36.6–36.8; O2SAT 92–100; BMI 38.2; BMI 36.6
--- NOTE | 2024-11-05 14:35 | ECG_ITS ---
APPROVED REPORT Exam: Resting ECG HR:66 bpm ECG Measurements Heart Rate 66 AXES NC 192 P 72 QRSd 102 QRS 62 QT 426 T 58 QTc 440 Conclusion Sinus rhythm Incomplete right bundle branch block Electronically signed by : ANEL DAVIS, 11/06/2024 08:20:56
--- NOTE | 2024-11-05 14:40 | XR_ITS ---
FINAL REPORT CLINICAL HISTORY: SOA/CP COMPARISON: 09/05/2024 FINDINGS: SINGLE VIEW CHEST The heart is normal in size. The mediastinum is unremarkable. There is scarring at the right base. The lungs are otherwise clear. There is no pneumothorax. IMPRESSION: No acute process. Reviewed, Interpreted and Dictated by Wiley Jacobo MD Transcribed by Nurys Brown Authenticated and [facility]
--- NOTE | 2024-11-05 14:45 | ED_ITS ---
<Statement entered by Lu Shaikh DO - 11/05/24 18:55> I was consulted by the TORIN, and we discussed the complexity of the problems being addressed. I approved the treatment and management plan for this patient's care in the emergency department, thus performing a substantive portion of the medical decision making. I was involved in care of the patient after signout of the previous attending provider at 1500 Lu Shaikh DO Discharge Plan Disposition Patient Disposition: Admitted Condition: Good Clinical Impressions Clinical Impression: Chest pain due to CAD Discharge ED Provider: Sunday Weinstein General Adult HPI <BRADY Roland - Last Filed: 11/05/24 18:30> General Chief complaint: Chest Pain Stated complaint: CP Time Seen by Provider: 11/05/24 14:32 Mode of Arrival: Ambulatory Limitations: No Limitations History of Present Illness HPI narrative: 74-year-old female presents emergency department with chest pain that is substernal nonradiating started currently rated at 8 out of 10, at maximal 8 out of 10, started yesterday at around 2 AM, has been consistent, patient took 2 nitroglycerin sublingual p.o. yesterday which did relieve from stress of otology, she is taken 3 today, with no relief to her symptomatology thus called her PCP versus cardiology office who instructed her to come to the emergency department, she denies any fever chills, admits to shortness of breath, with exertion, admits to nausea no abdominal pain, admits to chronic constipation, no diarrhea, no melena no hematochezia no hematemesis or hemoptysis, no urinary type symptomatology, other past medical history consistent with CAD status post 3 stent placements, CABG, T2DM, anemia, NAFLD, hyperparathyroidism, OAB, CKD stage III, hyperlipidemia, degenerative disc disease, of spine, diabetic polyneuropathy, obesity, hypertension, she is on a plate therapy with Plavix, no aspirin. Denies any tobacco alcohol or drug use, initial triage vitals unremarkable. Onset (ago): day(s) Related Data Home Medications ?Medication ?Instructions ?Recorded ?Confirmed milnacipran 50 mg tablet (Savella) 50 mg PO BID 02/28/23 11/05/24 nitroglycerin 0.4 mg sublingual 0.4 mg sublingual Q5-15M PRN Chest 09/28/23 05/27/25 tablet Pain calcitriol 0.25 mcg capsule 0.25 mcg PO Q48H 12/07/23 11/05/24 fluticasone propionate 50 1 spray intranasal DAILYP PRN 01/09/24 11/05/24 mcg/actuation nasal ALLERGIES spray,suspension (Allergy Relief (fluticasone)) cholecalciferol (vitamin D3) 25 25 mcg PO DAILY 03/25/24 11/05/24 mcg (1,000 unit) capsule magnesium oxide 400 mg PO DAILY Supplement 03/25/24 11/05/24 escitalopram oxalate 20 mg tablet 20 mg PO DAILY 08/22/24 11/05/24 ranolazine 1,000 mg 1,000 mg PO BID 08/22/24 11/05/24 tablet,extended release,12 hr azelastine 137 mcg (0.1 %) nasal 1 spray intranasal BIDP PRN 09/05/24 11/05/24 spray Allergy Symptoms insulin human U-100 NPH-regulr 35 unit SQ BID 09/05/24 11/05/24 70-30 mix 100 unit/mL subcutaneous susp (Novolin 70/30 U-100 Insulin) evolocumab 140 mg/mL subcutaneous 140 mg SQ . 11/05/24 11/05/24 pen injector (Cocnhita Muñoz) ezetimibe 10 mg tablet 10 mg PO DAILY 11/05/24 11/05/24 pantoprazole 40 mg tablet,delayed 40 mg PO DAILY 11/05/24 11/05/24 release Previous Rx's ?Medication ?Instructions ?Recorded levocetirizine 5 mg tablet (Xyzal) 5 mg PO HS #90 tabs 11/07/23 isosorbide mononitrate 60 mg 60 mg PO BID #180 tabs 05/20/24 tablet,extended release 24 hr bisoprolol fumarate 5 mg tablet 5 mg PO BID #60 tabs 07/31/24 empagliflozin 10 mg tablet 10 mg PO DAILY Diabetes #90 tabs 09/09/24 (Jardiance) furosemide 20 mg tablet 40 mg (2 x 20 mg) PO Q48H #30 tabs 09/11/24 clopidogrel 75 mg tablet 75 mg PO DAILY #90 tabs 09/13/24 pregabalin 25 mg capsule 25 mg PO HS #30 caps 09/19/24 estradiol 0.01% (0.1 mg/gram) 1 appful vaginal DIRECTED #42.5 09/23/24 vaginal cream grams oxybutynin chloride 10 mg 10 mg PO DAILY #90 tabs 09/23/24 tablet,extended release 24 hr flash glucose sensor (FreeStyle #6 ea 09/30/24 Mounika 14 Day Sensor kit) hydralazine 10 mg tablet 10 mg PO TID #90 tabs 10/23/24 Allergies Allergy/AdvReac Type Severity Reaction Status Date / Time Ghhmetq-WUQ-XoF Reductase Allergy Severe Unknown Verified 10/28/24 13:44 Inhibitor (Xebmubc-Oye-Hpv allergy Reductase Inhibitor) reaction Penicillins Allergy Intermediate I-RASH Verified 10/28/24 13:44 losartan Allergy Mild Verified 10/28/24 13:44 cefuroxime (From Ceftin) Allergy Unknown Verified 10/28/24 13:44 allergy reaction hydrocodone AdvReac Verified 10/28/24 13:44 [facility] <BRADY Roland - Last Filed: 11/05/24 18:30> [facility] Disclaimer: The information contained in this section may have been updated after the patient was seen, as this information can be updated by other users. Medical History (Updated 11/05/24 @ 17:02 by BRADY Roland) BMS (burning mouth syndrome) Right ear pain Pressure sensation in right ear Hospital discharge follow-up Acute kidney injury superimposed on chronic kidney disease Elevated brain natriuretic peptide (BNP) level Chest pain Other specified symptoms and signs involving the circulatory and respiratory systems Need for shingles vaccine Encounter for screening for osteoporosis BMI over 35 Renal failure Atrophic vaginitis Peroneal tendon tear Elevated liver enzymes Pneumaturia Breast pain, right Incomplete bladder emptying NSTEMI (non-ST elevated myocardial infarction) Angina pectoris BMI 34.0-34.9,adult Neck pain Radicular pain in left arm Right-sided chest wall pain Bloating RLQ abdominal pain Acute gastroenteritis Left elbow pain Left upper arm pain Left shoulder pain Superior labrum unlcbpdu-ib-ajwkmmqti (SLAP) tear of left shoulder Effusion of shoulder joint, left Traumatic tear of supraspinatus tendon of left shoulder Traumatic ecchymosis of ankle Sprain of tarsometatarsal ligament of right foot Right ankle injury Pseudomonas urinary tract infection Edema of right lower extremity High ankle sprain of right lower extremity Yeast infection of the skin Hematoma Right otitis media UTI (urinary tract infection) Vaginal yeast infection Metallic taste Thrush, oral Acute effusion of both middle ears URI (upper respiratory infection) Burping Nausea Secondary hyperparathyroidism Hoarseness Dysphagia Constipation, unspecified Abdominal pain Fatigue Neck pain on right side Urinary tract infection symptoms Pharyngitis Sinusitis Rib pain on left side Right upper quadrant pain Left breast mass H/O malignant neoplasm of breast Edema of both lower extremities Frequent falls Contusion of left upper arm Head injury Contusion of knee, left Contusion of elbow, left Skin tear of left hand without complication Dehydration, mild Kidney failure Sinusitis Labile blood pressure Typical angina Fall Syncope Dyspnea Typical angina Gallstones Discharge from left nipple Breast CA Dizziness Chest pain Breast cancer in female Extrapyramidal disorder Restless sleeper Daytime somnolence Abnormal cardiovascular stress test Atypical angina Chest pain Angina pectoris Diastolic dysfunction Edema Surgical History History of cardiac cath History of lumpectomy of left breast History of esophagogastroduodenoscopy (EGD) H/O thumb surgery H/O tubal ligation History of colonoscopy History of breast biopsy History of coronary artery bypass graft x 1 Stented coronary artery Family History Mother , at age 68 Congestive heart failure Crohn's disease Father , at age 84 Hypertension Cancer lung and colon ca Sister Diabetes Coronary artery disease Sister Cancer breast Diabetes Brother Coronary artery disease Grandmother Cancer paternal grandmother-colon ca Other No significant family history Social History (Updated 11/05/24 @ 20:11 by Ning Dietz RN) Smoking Status: Never smoker second hand exposure: Yes alcohol intake: never counseling provided: none substance use type: denies use current occupational status: retired Travel in the last 8 weeks?: None household members: spouse housing: house marital status: number of children: 4 current occupational exposures/hazards: No caffeine: Yes do you feel safe at home: Yes victim of physical abuse: No victim of emotional abuse: No victim of sexual abuse: No would you like helpful sources: No Have you lived/traveled outside [place] in past 30 days?: No Contact w/someone who lives/traveled outside [place] past 30 days?: No Exposure to someone with infectious disease in past 14 days?: No Do you have a fever (greater than 100.4 F or 38 C)?: No Have you tested positive for COVID-19?: No Exposed to someone with COVID-19 in past 14 days?: No Do you have a sore throat?: No Do you have a cough?: No Do you have any weakness?: No Do you have any diarrhea?: No Are you experiencing any unusual bleeding?: No Do you have any muscle aches/pain?: No Do you have any abdominal pain?: No Are you experiencing loss of taste or smell?: No Other Medical History Have you received the Flu Vaccine for this season: No Have you received the Pneumonia Vaccine: Yes <BRADY Roland - Last Filed: 11/05/24 18:30> ROS Obtained: Yes All systems reviewed & no additional complaints except as documented Physical Exam <BRADY Roland - Last Filed: 11/05/24 18:30> General General appearance: alert and in no apparent distress Head Head exam: atraumatic and normocephalic Eye Eye exam: Present normal appearance, PERRL and EOMI Neck Neck exam: Present full ROM; Absent meningismus Chest Chest inspection: Present normal inspection Respiratory Respiratory exam: Absent respiratory distress, wheezes, stridor, accessory muscle use or prolonged expiratory phase Cardiovascular Cardiovascular exam: Present normal rhythm and other (Pulses equal and symmetric in bilateral upper and lower extremities) Abdominal Exam Abdominal exam: Absent distention, tenderness, guarding or rebound Extremities Exam Extremities exam: Absent edema Neurological Exam Neurological exam: Present alert Psychiatric Psychiatric exam: Present normal affect Skin Skin exam: Present warm and dry Medical Decision Making <BRADY Roland - Last Filed: 11/05/24 18:30> Medical Records Medical records reviewed: Yes I reviewed the patient's medical records. Screening: Per USPSTF and CDC recommendations, given the prevalence of disease in our region, it is our hospital?s policy to screen for HIV and viral Hepatitis for all patients aged 18 and over and those with ongoing risk factors. Mitch Inquiry Pt receiving controlled substance: No Mitch was queried for this patient: No Vital Signs: 11/05/24 14:39 11/05/24 15:30 11/05/24 16:00 Temperature 98.3 F Temperature Source Oral Pulse Rate 60 61 Pulse Rate [Left Radial] 65 Respiratory Rate 17 Blood Pressure 161/63 H 157/66 H Blood Pressure [Right Arm] 139/76 Blood Pressure Mean [Right Arm] 97 Blood Pressure Source [Right Arm] Automatic Cuff Blood Pressure Position [Right Arm] Sitting 02 Sat by Pulse Oximetry 98 98 97 Oxygen Delivery Method Room Air 11/05/24 16:30 11/05/24 17:00 11/05/24 17:17 Temperature Temperature Source Pulse Rate 60 61 Pulse Rate [Left Radial] Respiratory Rate Blood Pressure 164/65 H 158/65 H Blood Pressure [Right Arm] Blood Pressure Mean [Right Arm] Blood Pressure Source [Right Arm] Blood Pressure Position [Right Arm] 02 Sat by Pulse Oximetry 98 97 Oxygen Delivery Method Room Air 11/05/24 17:31 11/05/24 18:45 11/05/24 19:05 Temperature 98.2 F Temperature Source Pulse Rate 61 80 Pulse Rate [Left Radial] Respiratory Rate 20 Blood Pressure 146/52 H 150/78 H Blood Pressure [Right Arm] Blood Pressure Mean [Right Arm] Blood Pressure Source [Right Arm] Blood Pressure Position [Right Arm] 02 Sat by Pulse Oximetry 98 Oxygen Delivery Method Room Air Room Air Lab Data Lab Results 11/05/24 14:45: WBC 6.0, RBC 4.30, Hgb 12.5, Hct 38.1, MCV 88.6, MCH 29.1, MCHC 32.8, RDW 13.8, Plt Count 263, MPV 10.0, Neut % (Auto) 66.3, Lymph % (Auto) 23.8, Haakon % (Auto) 7.6, Eos % (Auto) 0.8, Baso % (Auto) 0.5, Neut # (Auto) 4.0, Lymph # (Auto) 1.4, Haakon # (Auto) 0.5, Eos # (Auto) 0.1, Baso # (Auto) 0.0, PT 11.4, INR 1.03, D-Dimer 0.66 H, Sodium 137, Potassium 4.4, Chloride 104, Carbon Dioxide 26, Anion Gap 11.4, BUN 22 H, Creatinine 1.40 H, Estimated Creat Clear 53, Estimated GFR 37 L, Est GFR ( Amer) 44 L, Glucose 87, Calcium 8.6, Magnesium 2.1, Total Bilirubin 0.5, AST 36, ALT 26, Alkaline Phosphatase 46, Troponin I < 0.01, NT-Pro-B Natriuret Pep 880 H, Total Protein 6.7, Albumin 4.2, Globulin 2.5, Albumin/Globulin Ratio 1.7, Lipase 51 11/05/24 16:43: Troponin I < 0.01 11/06/24 05:35 11/05/24 14:45 Orders (Tests/Meds): ED MEDICATIONS Generic Name Dose Route Start Last Admin Trade Name Freq PRN Reason Stop Dose Admin Azelastine HCl 137 mcg 11/06/24 07:34 Azelastine Nasal [place] 30ml Bottle NS 12/06/24 07:33 BIDP PRN ALLERGIES Bisoprolol Fumarate 5 mg 11/05/24 21:00 11/05/24 21:17 Bisoprolol 5mg Tablet PO 12/05/24 20:59 5 mg BID BRITTON Administration Clopidogrel Bisulfate 75 mg 11/06/24 09:00 Clopidogrel 75mg Tab PO 12/06/24 08:59 DAILY BRITTON Ezetimibe 10 mg 11/06/24 09:00 Ezetimibe 10mg Tablet PO 12/06/24 08:59 DAILY BRITTON Empagliflozin 10 mg 11/06/24 09:00 Empagliflozin 10mg Tablet PO 12/06/24 08:59 DAILY BRITTON Escitalopram Oxalate 20 mg 11/06/24 09:00 Escitalopram 20mg Tablet PO 12/06/24 08:59 DAILY BRITTON Fluticasone Propionate 1 spray 11/05/24 20:37 Fluticasone Prop 50mcg Nasal [place] 16gm NS 12/05/24 20:36 DAILYP PRN ALLERGIES Furosemide 40 mg 11/05/24 20:45 11/05/24 21:17 Furosemide 40mg/4ml Vial IV 12/05/24 20:44 40 mg BIDL BRITTON Administration Insulin Lispro Protam/Lispro Human 35 unit 11/05/24 21:00 11/05/24 21:19 Humalog Mix /25 3ml Flexpen SUBCUT 12/05/24 20:59 Not Given BID BRITTON Isosorbide Mononitrate 60 mg 11/05/24 21:00 11/05/24 21:19 Isosorbide Haakon 60mg Tab.Er.24h PO 12/05/24 20:59 60 mg BID BRITTON Administration Loratadine 10 mg 11/06/24 09:00 Loratadine 10mg Tablet PO 12/06/24 08:59 DAILY BRITTON Magnesium Oxide 400 mg 11/06/24 09:00 Magnesium Oxide 400mg Tablet PO 12/06/24 08:59 DAILY BRITTON Morphine Sulfate 4 mg 11/05/24 20:42 Morphine 4mg/Ml Syringe IV 12/05/24 20:41 Q4HP PRN Chest Pain Nitroglycerin 0.4 mg 11/05/24 20:37 Nitroglycerin 0.4mg Sl Tablet SL 12/05/24 20:36 Q5MINP PRN Chest Pain Non-Formulary Medication 50 mg 11/05/24 21:00 11/05/24 21:19 Milnacipran [Savella] PO 12/05/24 20:59 50 mg BID BRITTON Administration Oxybutynin Chloride 5 mg 11/05/24 21:00 11/05/24 21:17 Oxybutynin 5mg Tab PO 12/05/24 20:59 5 mg BID BRITTON Administration Pantoprazole Sodium 40 mg 11/06/24 21:00 Pantoprazole 40mg Tablet PO 12/06/24 20:59 HS BRITTON Pregabalin 25 mg 11/05/24 21:00 11/05/24 21:17 Pregabalin 25mg Capsule PO 12/05/24 20:59 25 mg HS BRITTON Administration Ranolazine 1,000 mg 11/06/24 09:00 Ranolazine 500mg Er Tablet PO 12/06/24 08:59 BID BRITTON Discontinued Medications Generic Name Dose Route Start Last Admin Trade Name Freq PRN Reason Stop Dose Admin Aspirin 325 mg 11/05/24 14:42 11/05/24 14:55 Aspirin 325mg Tablet PO 11/05/24 14:43 325 mg ONCE ONE Administration Dextrose 25 ml 11/05/24 17:58 11/05/24 18:26 Dextrose 50% 50ml Syringe (Crash Cart) IVP 11/05/24 17:59 Not Given ONCE ONE Morphine Sulfate 4 mg 11/05/24 14:42 11/05/24 14:56 Morphine 4mg/Ml Syringe IV 11/05/24 14:43 4 mg ONCE ONE Administration Morphine Sulfate 4 mg 11/05/24 20:45 11/05/24 20:46 Morphine 4mg/Ml Syringe IV 11/05/24 20:46 4 mg ONCE ONE Administration Non-Formulary Medication 1,000 mg 11/05/24 21:00 11/05/24 21:20 Ranolazine PO 12/05/24 20:59 1,000 mg BID BRITTON Administration Ondansetron HCl 4 mg 11/05/24 14:41 11/05/24 14:55 Ondansetron 4mg/2ml Vial IV 11/05/24 14:42 4 mg ONCE ONE Administration ORDERS Category Date Time Status Cardiology Consult [Consult to Cardiology] [CONS] Cons 11/05/24 16:59 Active Routine XR chest portable Stat Exams 11/05/24 14:40 Completed Complete Blood Count Auto Diff AMLAB Lab 11/06/24 05:35 Completed Complete Blood Count Auto Diff Stat Lab 11/05/24 14:45 Completed Comprehensive Metabolic Panel AMLAB Lab 11/06/24 05:35 Received Comprehensive Metabolic Panel Stat Lab 11/05/24 14:45 Completed D-Dimer Stat Lab 11/05/24 14:45 Completed Lipase Stat Lab 11/05/24 14:45 Completed Magnesium AMLAB Lab 11/06/24 05:35 Received Magnesium Stat Lab 11/05/24 14:45 Completed NT Pro Brain Natriuretic Pep. Stat Lab 11/05/24 14:45 Completed PT INR [Prothrombin Time INR] Stat Lab 11/05/24 14:45 Completed Troponin I Q3H Lab 11/05/24 16:43 Completed Troponin I Q3H Lab 11/05/24 21:33 Completed Troponin I Stat Lab 11/05/24 14:45 Completed Medical Decision Narrative: 74-year-old female presents emergency department with chest pain, shortness of breath and nausea, differential diagnosis include but not limited to, ACS, cardiac arrhythmia, electrolyte disturbance, costochondritis, PE, gastritis, GERD, GUY, panic attack, among others. I discussed patient case with attending physician Dr. Weinstein Will obtain basic laboratory studies, chest x-ray, D-dimer, lipase, magnesium level, troponin, PT/INR, EKG, ASA 325 mg p.o., 4 mg IV morphine, 4 mg IV Zofran for pain and nausea. CBC unremarkable Coags within normal limits Mild acute on chronic kidney injury with a creatinine of 1.4 and BUN of 22, which appears to be in line with the patient's chronic kidney disease. D-dimer is minimally elevated, at 0.66, initial troponin is less than 0.01, proBNP is minimally elevated at 880. Utilizing years criteria, negative for PE. I reviewed the patient's chest x-ray along the corresponding radiologic report, no acute process. Reexamination of the patient approximately 4 PM, patient's chest pain is improved from 8 out of 10 to 6 out of 10 Current heart score of 5, moderate risk for MACE. I attempted to discuss this patient case with hospitalist physician Dr. Patricio at approximately 4:35 PM, however at this time, he is performing patient care and will call me back. I discussed this patient's case again with Dr. Patricio of the hospitalist physician at approximately 4:55 PM, he is in agreement with current admission plan/treatment plan for unstable angina, with potential cardiology admission, and medical management versus further evaluation/testing. Patient and family agree with current admission plan/treatment plan. <Sunday Weinstein MD - Last Filed: 11/06/24 07:40> Vital Signs: 11/05/24 14:39 11/05/24 15:30 11/05/24 16:00 Temperature 98.3 F Temperature Source Oral Pulse Rate 60 61 Pulse Rate [Left Radial] 65 Respiratory Rate 17 Blood Pressure 161/63 H 157/66 H Blood Pressure [Right Arm] 139/76 Blood Pressure Mean [Right Arm] 97 Blood Pressure Source [Right Arm] Automatic Cuff Blood Pressure Position [Right Arm] Sitting 02 Sat by Pulse Oximetry 98 98 97 Oxygen Delivery Method Room Air 11/05/24 16:30 11/05/24 17:00 11/05/24 17:17 Temperature Temperature Source Pulse Rate 60 61 Pulse Rate [Left Radial] Respiratory Rate Blood Pressure 164/65 H 158/65 H Blood Pressure [Right Arm] Blood Pressure Mean [Right Arm] Blood Pressure Source [Right Arm] Blood Pressure Position [Right Arm] 02 Sat by Pulse Oximetry 98 97 Oxygen Delivery Method Room Air 11/05/24 17:31 11/05/24 18:45 11/05/24 19:05 Temperature 98.2 F Temperature Source Pulse Rate 61 80 Pulse Rate [Left Radial] Respiratory Rate 20 Blood Pressure 146/52 H 150/78 H Blood Pressure [Right Arm] Blood Pressure Mean [Right Arm] Blood Pressure Source [Right Arm] Blood Pressure Position [Right Arm] 02 Sat by Pulse Oximetry 98 Oxygen Delivery Method Room Air Room Air Lab Data Lab Results 11/05/24 14:45: WBC 6.0, RBC 4.30, Hgb 12.5, Hct 38.1, MCV 88.6, MCH 29.1, MCHC 32.8, RDW 13.8, Plt Count 263, MPV 10.0, Neut % (Auto) 66.3, Lymph % (Auto) 23.8, Haakon % (Auto) 7.6, Eos % (Auto) 0.8, Baso % (Auto) 0.5, Neut # (Auto) 4.0, Lymph # (Auto) 1.4, Haakon # (Auto) 0.5, Eos # (Auto) 0.1, Baso # (Auto) 0.0, PT 11.4, INR 1.03, D-Dimer 0.66 H, Sodium 137, Potassium 4.4, Chloride 104, Carbon Dioxide 26, Anion Gap 11.4, BUN 22 H, Creatinine 1.40 H, Estimated Creat Clear 53, Estimated GFR 37 L, Est GFR ( Amer) 44 L, Glucose 87, Calcium 8.6, Magnesium 2.1, Total Bilirubin 0.5, AST 36, ALT 26, Alkaline Phosphatase 46, Troponin I < 0.01, NT-Pro-B Natriuret Pep 880 H, Total Protein 6.7, Albumin 4.2, Globulin 2.5, Albumin/Globulin Ratio 1.7, Lipase 51 11/05/24 16:43: Troponin I < 0.01 Orders (Tests/Meds): ED MEDICATIONS Generic Name Dose Route Start Last Admin Trade Name Freq PRN Reason Stop Dose Admin Azelastine HCl 137 mcg 11/06/24 07:34 Azelastine Nasal [place] 30ml Bottle NS 12/06/24 07:33 BIDP PRN ALLERGIES Bisoprolol Fumarate 5 mg 11/05/24 21:00 11/05/24 21:17 Bisoprolol 5mg Tablet PO 12/05/24 20:59 5 mg BID BRITTON Administration Clopidogrel Bisulfate 75 mg 11/06/24 09:00 Clopidogrel 75mg Tab PO 12/06/24 08:59 DAILY BRITTON Ezetimibe 10 mg 11/06/24 09:00 Ezetimibe 10mg Tablet PO 12/06/24 08:59 DAILY BRITTON Empagliflozin 10 mg 11/06/24 09:00 Empagliflozin 10mg Tablet PO 12/06/24 08:59 DAILY BRITTON Escitalopram Oxalate 20 mg 11/06/24 09:00 Escitalopram 20mg Tablet PO 12/06/24 08:59 DAILY BRITTON Fluticasone Propionate 1 spray 11/05/24 20:37 Fluticasone Prop 50mcg Nasal [place] 16gm NS 12/05/24 20:36 DAILYP PRN ALLERGIES Furosemide 40 mg 11/05/24 20:45 11/05/24 21:17 Furosemide 40mg/4ml Vial IV 12/05/24 20:44 40 mg BIDL BRITTON Administration Insulin Lispro Protam/Lispro Human 35 unit 11/05/24 21:00 11/05/24 21:19 Humalog Mix 3ml Flexpen SUBCUT 12/05/24 20:59 Not Given BID BRITTON Isosorbide Mononitrate 60 mg 11/05/24 21:00 11/05/24 21:19 Isosorbide Haakon 60mg Tab.Er.24h PO 12/05/24 20:59 60 mg BID BRITTON Administration Loratadine 10 mg 11/06/24 09:00 Loratadine 10mg Tablet PO 12/06/24 08:59 DAILY BRITTON Magnesium Oxide 400 mg 11/06/24 09:00 Magnesium Oxide 400mg Tablet PO 12/06/24 08:59 DAILY BRITTON Morphine Sulfate 4 mg 11/05/24 20:42 Morphine 4mg/Ml Syringe IV 12/05/24 20:41 Q4HP PRN Chest Pain Nitroglycerin 0.4 mg 11/05/24 20:37 Nitroglycerin 0.4mg Sl Tablet SL 12/05/24 20:36 Q5MINP PRN Chest Pain Non-Formulary Medication 50 mg 11/05/24 21:00 11/05/24 21:19 Milnacipran [Savella] PO 12/05/24 20:59 50 mg BID BRITTON Administration Oxybutynin Chloride 5 mg 11/05/24 21:00 11/05/24 21:17 Oxybutynin 5mg Tab PO 12/05/24 20:59 5 mg BID BRITTON Administration Pantoprazole Sodium 40 mg 11/06/24 21:00 Pantoprazole 40mg Tablet PO 12/06/24 20:59 HS BRITTON Pregabalin 25 mg 11/05/24 21:00 11/05/24 21:17 Pregabalin 25mg Capsule PO 12/05/24 20:59 25 mg HS BRITTON Administration Ranolazine 1,000 mg 11/06/24 09:00 Ranolazine 500mg Er Tablet PO 12/06/24 08:59 BID BRITTON Discontinued Medications Generic Name Dose Route Start Last Admin Trade Name Jigna BRIZUELA Reason Stop Dose Admin Aspirin 325 mg 11/05/24 14:42 11/05/24 14:55 Aspirin 325mg Tablet PO 11/05/24 14:43 325 mg ONCE ONE Administration Dextrose 25 ml 11/05/24 17:58 11/05/24 18:26 Dextrose 50% 50ml Syringe (Crash Cart) IVP 11/05/24 17:59 Not Given ONCE ONE Morphine Sulfate 4 mg 11/05/24 14:42 11/05/24 14:56 Morphine 4mg/Ml Syringe IV 11/05/24 14:43 4 mg ONCE ONE Administration Morphine Sulfate 4 mg 11/05/24 20:45 11/05/24 20:46 Morphine 4mg/Ml Syringe IV 11/05/24 20:46 4 mg ONCE ONE Administration Non-Formulary Medication 1,000 mg 11/05/24 21:00 11/05/24 21:20 Ranolazine PO 12/05/24 20:59 1,000 mg BID BRITTON Administration Ondansetron HCl 4 mg 11/05/24 14:41 11/05/24 14:55 Ondansetron 4mg/2ml Vial IV 11/05/24 14:42 4 mg ONCE ONE Administration ORDERS Category Date Time Status Cardiology Consult [Consult to Cardiology] [CONS] Cons 11/05/24 16:59 Active Routine XR chest portable Stat Exams 11/05/24 14:40 Completed Complete Blood Count Auto Diff AMLAB Lab 11/06/24 05:35 Completed Complete Blood Count Auto Diff Stat Lab 11/05/24 14:45 Completed Comprehensive Metabolic Panel AMLAB Lab 11/06/24 05:35 Received Comprehensive Metabolic Panel Stat Lab 11/05/24 14:45 Completed D-Dimer Stat Lab 11/05/24 14:45 Completed Lipase Stat Lab 11/05/24 14:45 Completed Magnesium AMLAB Lab 11/06/24 05:35 Received Magnesium Stat Lab 11/05/24 14:45 Completed NT Pro Brain Natriuretic Pep. Stat Lab 11/05/24 14:45 Completed PT INR [Prothrombin Time INR] Stat Lab 11/05/24 14:45 Completed Troponin I Q3H Lab 11/05/24 16:43 Completed Troponin I Q3H Lab 11/05/24 21:33 Completed Troponin I Stat Lab 11/05/24 14:45 Completed ECG Data Tracing #1: I reviewed this ECG and interpreted as documented below: (66 bpm sinus rhythm DE 192, QRS 102, QTc 440. No acute ischemic changes) Medical Decision Narrative: 74-year-old female presents emergency department with chest pain, shortness of breath and nausea, differential diagnosis include but not limited to, ACS, cardiac arrhythmia, electrolyte disturbance, costochondritis, PE, gastritis, GERD, GUY, panic attack, among others. I discussed patient case with attending physician Dr. Weinstein Will obtain basic laboratory studies, chest x-ray, D-dimer, lipase, magnesium level, troponin, PT/INR, EKG, ASA 325 mg p.o., 4 mg IV morphine, 4 mg IV Zofran for pain and nausea. CBC unremarkable Coags within normal limits Mild acute on chronic kidney injury with a creatinine of 1.4 and BUN of 22, which appears to be in line with the patient's chronic kidney disease. D-dimer is minimally elevated, at 0.66, initial troponin is less than 0.01, proBNP is minimally elevated at 880. Utilizing years criteria, negative for PE. I reviewed the patient's chest x-ray along the corresponding radiologic report, no acute process. Reexamination of the patient approximately 4 PM, patient's chest pain is improved from 8 out of 10 to 6 out of 10 Current heart score of 5, moderate risk for MACE. I attempted to discuss this patient case with hospitalist physician Dr. Patricio at approximately 4:35 PM, however at this time, he is performing patient care and will call me back. I discussed this patient's case again with Dr. Patricio of the hospitalist physician at approximately 4:55 PM, he is in agreement with current admission plan/treatment plan for unstable angina, with potential cardiology admission, and medical management versus further evaluation/testing. Patient and family agree with current admission plan/treatment plan. I was consulted by the TORIN, and we discussed the complexity of the problems being addressed. I approved the treatment and management plan for this patient's care in the Emergency Department, thus performing a substantive portion of the medical decision making. Sunday Weinstein MD <Lu Shaikh, DO - Last Filed: 11/05/24 16:55> Vital Signs: 11/05/24 14:39 11/05/24 15:30 11/05/24 16:00 Temperature 98.3 F Temperature Source Oral Pulse Rate 60 61 Pulse Rate [Left Radial] 65 Respiratory Rate 17 Blood Pressure 161/63 H 157/66 H Blood Pressure [Right Arm] 139/76 Blood Pressure Mean [Right Arm] 97 Blood Pressure Source [Right Arm] Automatic Cuff Blood Pressure Position [Right Arm] Sitting 02 Sat by Pulse Oximetry 98 98 97 Oxygen Delivery Method Room Air 11/05/24 16:30 11/05/24 17:00 11/05/24 17:17 Temperature Temperature Source Pulse Rate 60 61 Pulse Rate [Left Radial] Respiratory Rate Blood Pressure 164/65 H 158/65 H Blood Pressure [Right Arm] Blood Pressure Mean [Right Arm] Blood Pressure Source [Right Arm] Blood Pressure Position [Right Arm] 02 Sat by Pulse Oximetry 98 97 Oxygen Delivery Method Room Air 11/05/24 17:31 11/05/24 18:45 11/05/24 19:05 Temperature 98.2 F Temperature Source Pulse Rate 61 80 Pulse Rate [Left Radial] Respiratory Rate 20 Blood Pressure 146/52 H 150/78 H Blood Pressure [Right Arm] Blood Pressure Mean [Right Arm] Blood Pressure Source [Right Arm] Blood Pressure Position [Right Arm] 02 Sat by Pulse Oximetry 98 Oxygen Delivery Method Room Air Room Air Lab Data Lab Results 11/05/24 14:45: WBC 6.0, RBC 4.30, Hgb 12.5, Hct 38.1, MCV 88.6, MCH 29.1, MCHC 32.8, RDW 13.8, Plt Count 263, MPV 10.0, Neut % (Auto) 66.3, Lymph % (Auto) 23.8, Haakon % (Auto) 7.6, Eos % (Auto) 0.8, Baso % (Auto) 0.5, Neut # (Auto) 4.0, Lymph # (Auto) 1.4, Haakon # (Auto) 0.5, Eos # (Auto) 0.1, Baso # (Auto) 0.0, PT 11.4, INR 1.03, D-Dimer 0.66 H, Sodium 137, Potassium 4.4, Chloride 104, Carbon Dioxide 26, Anion Gap 11.4, BUN 22 H, Creatinine 1.40 H, Estimated Creat Clear 53, Estimated GFR 37 L, Est GFR ( Amer) 44 L, Glucose 87, Calcium 8.6, Magnesium 2.1, Total Bilirubin 0.5, AST 36, ALT 26, Alkaline Phosphatase 46, Troponin I < 0.01, NT-Pro-B Natriuret Pep 880 H, Total Protein 6.7, Albumin 4.2, Globulin 2.5, Albumin/Globulin Ratio 1.7, Lipase 51 11/05/24 16:43: Troponin I < 0.01 Orders (Tests/Meds): ED MEDICATIONS Generic Name Dose Route Start Last Admin Trade Name Freq PRN Reason Stop Dose Admin Azelastine HCl 137 mcg 11/06/24 07:34 Azelastine Nasal [place] 30ml Bottle NS 12/06/24 07:33 BIDP PRN ALLERGIES Bisoprolol Fumarate 5 mg 11/05/24 21:00 11/05/24 21:17 Bisoprolol 5mg Tablet PO 12/05/24 20:59 5 mg BID BRITTON Administration Clopidogrel Bisulfate 75 mg 11/06/24 09:00 Clopidogrel 75mg Tab PO 12/06/24 08:59 DAILY BRITTON Ezetimibe 10 mg 11/06/24 09:00 Ezetimibe 10mg Tablet PO 12/06/24 08:59 DAILY BRITTON Empagliflozin 10 mg 11/06/24 09:00 Empagliflozin 10mg Tablet PO 12/06/24 08:59 DAILY BRITTON Escitalopram Oxalate 20 mg 11/06/24 09:00 Escitalopram 20mg Tablet PO 12/06/24 08:59 DAILY BRITTON Fluticasone Propionate 1 spray 11/05/24 20:37 Fluticasone Prop 50mcg Nasal [place] 16gm NS 12/05/24 20:36 DAILYP PRN ALLERGIES Furosemide 40 mg 11/05/24 20:45 11/05/24 21:17 Furosemide 40mg/4ml Vial IV 12/05/24 20:44 40 mg BIDL BRITTON Administration Insulin Lispro Protam/Lispro Human 35 unit 11/05/24 21:00 11/05/24 21:19 Humalog Mix /25 3ml Flexpen SUBCUT 12/05/24 20:59 Not Given BID BRITTON Isosorbide Mononitrate 60 mg 11/05/24 21:00 11/05/24 21:19 Isosorbide Haakon 60mg Tab.Er.24h PO 12/05/24 20:59 60 mg BID BRITTON Administration Loratadine 10 mg 11/06/24 09:00 Loratadine 10mg Tablet PO 12/06/24 08:59 DAILY BRITTON Magnesium Oxide 400 mg 11/06/24 09:00 Magnesium Oxide 400mg Tablet PO 12/06/24 08:59 DAILY BRITTON Morphine Sulfate 4 mg 11/05/24 20:42 Morphine 4mg/Ml Syringe IV 12/05/24 20:41 Q4HP PRN Chest Pain Nitroglycerin 0.4 mg 11/05/24 20:37 Nitroglycerin 0.4mg Sl Tablet SL 12/05/24 20:36 Q5MINP PRN Chest Pain Non-Formulary Medication 50 mg 11/05/24 21:00 11/05/24 21:19 Milnacipran [Savella] PO 12/05/24 20:59 50 mg BID BRITTON Administration Oxybutynin Chloride 5 mg 11/05/24 21:00 11/05/24 21:17 Oxybutynin 5mg Tab PO 12/05/24 20:59 5 mg BID BRITTON Administration Pantoprazole Sodium 40 mg 11/06/24 21:00 Pantoprazole 40mg Tablet PO 12/06/24 20:59 HS BRITTON Pregabalin 25 mg 11/05/24 21:00 11/05/24 21:17 Pregabalin 25mg Capsule PO 12/05/24 20:59 25 mg HS BRITTON Administration Ranolazine 1,000 mg 11/06/24 09:00 Ranolazine 500mg Er Tablet PO 12/06/24 08:59 BID [facility] Discontinued Medications Generic Name Dose Route Start Last Admin Trade Name Guyq PRN Reason Stop Dose Admin Aspirin 325 mg 11/05/24 14:42 11/05/24 14:55 Aspirin 325mg Tablet PO 11/05/24 14:43 325 mg ONCE ONE Administration Dextrose 25 ml 11/05/24 17:58 11/05/24 18:26 Dextrose 50% 50ml Syringe (Crash Cart) IVP 11/05/24 17:59 Not Given ONCE ONE Morphine Sulfate 4 mg 11/05/24 14:42 11/05/24 14:56 Morphine 4mg/Ml Syringe IV 11/05/24 14:43 4 mg ONCE ONE Administration Morphine Sulfate 4 mg 11/05/24 20:45 11/05/24 20:46 Morphine 4mg/Ml Syringe IV 11/05/24 20:46 4 mg ONCE ONE Administration Non-Formulary Medication 1,000 mg 11/05/24 21:00 11/05/24 21:20 Ranolazine PO 12/05/24 20:59 1,000 mg BID BRITTON Administration Ondansetron HCl 4 mg 11/05/24 14:41 11/05/24 14:55 Ondansetron 4mg/2ml Vial IV 11/05/24 14:42 4 mg ONCE ONE Administration ORDERS Category Date Time Status Cardiology Consult [Consult to Cardiology] [CONS] Cons 11/05/24 16:59 Active Routine XR chest portable Stat Exams 11/05/24 14:40 Completed Complete Blood Count Auto Diff AMLAB Lab 11/06/24 05:35 Completed Complete Blood Count Auto Diff Stat Lab 11/05/24 14:45 Completed Comprehensive Metabolic Panel AMLAB Lab 11/06/24 05:35 Received Comprehensive Metabolic Panel Stat Lab 11/05/24 14:45 Completed D-Dimer Stat Lab 11/05/24 14:45 Completed Lipase Stat Lab 11/05/24 14:45 Completed Magnesium AMLAB Lab 11/06/24 05:35 Received Magnesium Stat Lab 11/05/24 14:45 Completed NT Pro Brain Natriuretic Pep. Stat Lab 11/05/24 14:45 Completed PT INR [Prothrombin Time INR] Stat Lab 11/05/24 14:45 Completed Troponin I Q3H Lab 11/05/24 16:43 Completed Troponin I Q3H Lab 11/05/24 21:33 Completed Troponin I Stat Lab 11/05/24 14:45 Completed ECG Data Tracing #1: I reviewed this ECG and interpreted as documented below: Normal sinus rhythm with a ventricular to [address] changes concerning for ischemia. Incomplete right bundle ECG initial impression date: 11/05/24 ECG initial impression time: 16:50 Critical Care <BRADY Roland - Last Filed: 11/05/24 18:30> Critical Care Time Critical Care Time: No
[2024-11-05 14:54] LABS: Basophils % 0.5 % (0.1-2.0); Eosinophils # 0.1 Kmm3 (0.0-0.4); Eosinophils % 0.8 % (0.1-12.0); Hematocrit 38.1 % (37.0-47.0); Hemoglobin 12.5 g/dL (12.2-16.2); Immature Granulocytes # 0.06 10^3uL; Lymphocytes # 1.4 K/mm3 (0.7-4.5); Lymphocytes % 23.8 % (10-50); Mean Corpuscular HGB Conc 32.8 g/dL (31.8-35.4); Mean Corpuscular Hemoglobin 29.1 pg (27.0-31.2); Mean Corpuscular Volume 88.6 fl (81-99); Monocytes # 0.5 K/mm3 (0.1-1.0); Monocytes % 7.6 % (1.7-9.3); Neutrophils % 66.3 % (37.0-80.0); Nucleated Red Blood Cells # 0 10^3/uL; Nucleated Red Blood Cells % 0 %; Platelet Count 263 K/mm3 (142-424); Red Cell Distribution Width 13.8 % (11.5-17.5); Red Cell Distribution Width-SD 44.7 fL
[2024-11-05] MEDS: ONDANSETRON 4MG/2ML VIAL 4 MG IV (14:55)
[2024-11-05] MEDS: ASPIRIN 325MG TABLET 325 MG PO (14:55)
[2024-11-05] MEDS: MORPHINE 4MG/ML SYRINGE 4 MG IV ×2 (14:56→20:46)
[2024-11-05 15:00] LABS: Albumin Level 4.2 g/dl (3.5-5.0); Chloride 104 mmol/L (98-107); Sodium 137 mmol/L (136-145)
[2024-11-05 15:01] LABS: Potassium 4.4 mmoL/L (3.5-5.1)
[2024-11-05 15:03] LABS: Alanine Aminotransferase 26 U/L (12-78); Anion Gap 11.4 mEq/L (5-15); Aspartate Amino Transferase 36 U/L (14-36); Blood Urea Nitrogen 22 mg/dl (7-17); Carbon Dioxide 26 mmol/L (22.0-30.0); Creatinine Clearance Estimated 53 mL/min (50-200); Estimated Glomerular Filt Rate 37 ml/min (>60); GFR (African American) 44 ML/MIN (>60)
[2024-11-05 15:04] LABS: Albumin/Globulin Ratio 1.7 (1.1-1.8); Alkaline Phosphatase 46 U/L (38-126); Bilirubin,Total 0.5 mg/dl (0.2-1.3); Calcium 8.6 mg/dl (8.4-10.2); Globulin 2.5 g/dL (1.3-3.2); Glucose 87 mg/dl (74-100); Lipase 51 U/L (23-300); Magnesium 2.1 mg/dl (1.6-2.3); Total Protein,Serum 6.7 g/dl (6.3-8.2)
[2024-11-05 15:05] LABS: INR 1.03 (0.9-1.1); Prothrombin Time 11.4 seconds (10.1-12.5)
--- OUTSIDE RECORDS SUMMARY | 2024-11-05 15:09 | XMS_ITS | Data Portability ---
Author Organization [facility] - [facility] Address [address] [place] [address] Assessment No assessment recorded. Plan of Treatment [...] Repor t NAME: NICHOLE MORALES PATH. :ST-2 [id number] Copy to: Diagn osis: A) Gastr ic biops y: -Mild chron ic gastr itis. -Immu nosta in for Helic obact er pylor i: Negat merline. 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 -Foca l jorge luis t cell intes tinal metap lasia (see comme nt). Comme nt: Intes tinal metap lasia can be seen with [place] [facility]'s esoph nafisa, or with intes tinal [...] 14:24 Page 1 of 1 Not Available [facility] [address] [place] [address], [place], [address], 10/19/2021 14:26:02 09/29/19 22 09/28/2021 RF, esoph nafisa, w/ contr ast [facility] [address] [place] [address] Sidra matos Name: NICHOLE matos : 09/18/18 [...] Liz Lucero MD on 022 2:[address] [facility] Radiology [facility] [address] [place], [address], 10/13/2021 12:10:50 10/09/19 22 07/21/2021 cardi ac monit or No observ ation record ed. Psychiatric (Med Record) [address], [place], [address], 10/20/2021 14:41:29 Result Notes None recorded. Medical Equipment None Reported. Allergies Allergen ID Allergen Name Allergen Category Reaction Reaction Severity Criticality Documentation Date Start Date Code Code System Note Provider Name and Address Organization Details Recorded Time 310682 penicilla mine medicatio n Not available Not available Not available 09/16/2021 7975 RxNorm [facility] 2 14:08:13 926145 Product containin g 3-hydroxy -3-methyl glutaryl- coenzyme A reductase inhibitor (product) medicatio n Not available Not available Not available 09/16/2021 10906 009 SNOMED [facility] 2 14:08:27 Medications Name Sig Start Date [...] Body weight Heart rate Respiratory rate Systolic And Diastolic Provider Name and Address Organization Details Last Updated DateTime 2 162.56 cm 36.2 kg/m2 75598.9 9 g 61 /min 16 /min 137/66 mm[Hg] Rose Medina [facility] 14:07:43 Date Recorded Body weight Heart rate Respiratory rate Systolic And Diastolic Provider Name and Address Organization Details Last Updated DateTime 10/12/2022 23525.88 g 70 /min 17 /min 122/52 mm[Hg] Nancy Hamilton [facility] 10/12/2022 15:00:14 Social History Question Answer Notes LastModified by Organizat ion Details LastModified Time Tobacco Smoking Status Never Smoker Rose Medina [facility] 09/16/2021 14:14:34 What Is Your Relationship Status? [...] Anxiety Disorder Y Arthritis Y Cancer Y Depression Y GI Problems Y Radiation Therapy Y Difficulty Swallowing Y GERD/Reflux Y Sleep Disorder Y High Cholesterol Y Heart Disease Y Hypertension Y Gynecological HistoryNo gynecological history recorded. Obstetrics History GPAL:G 0 P 0 0 0 0 Past Encounters Encounter ID Performer Location Encounter Start Date Encounter Closed Date Diagnosis/Indication Diagnosis SNOMED-CT Code Diagnosis ICD10 Code Diagnosis Note [id number] CHOCO CÁRDENAS MD GASTRO [place] [address] [facility], [address] [place] [address] 09/16/2021 13:45:01 09/16/2021 14:42:34 Chronic idiopathic constipation 12557983 K59.04 Start miralax once dailyRecom mend daily fiber intake to keep atleast 25-30 gm fiber daily Dysphagia 06339456 R13.1 0 Will arrange barium esophagram with tabletObta in modified barium study resultsWil l need to arange EGD evaluation of dysphagia. Family his tory of cancer of colon 491701113 Z80.0 Will need to arrange colonoscop y for high risk screening. Will obtain her most recent cardiology records with 2D echo prior to completing outpatient endoscopy. [id number] CHOCO CÁRDENAS MD SURGERY SCHEDULE [address] [place] [id number] 10/18/2021 07:10:51 10/18/2021 07:11:19 [id number] CHOCO CÁRDENAS MD GASTRO [place] [address] [facility] [facility], [address] [place] [address] 10/12/2022 14:48:45 10/12/2022 15:38:47 Altered bowel function 51428224 R19.4 Samples given to her to try [...] (MEDICARE REPLACEMENT/A DVANTAGE - PPO) Nichole Morales [id number] Nichole Morales 09/16/2021 1 [place] Nichole Morales [id number] Nichole Morales Notes Date Note Type Note [...] study that was abnormal completed recently thru [facility]. I do not have that record for review. She denies weight loss. She denies abdominal pain. She has chronic constipation for several years. Her last colonoscopy was completed thru [facility] about 10 years ago. She does not recall having had colon polyps. Her father had colon cancer. She did a cologaurd 3-4 years ago that was reportedly negative. Her last echo was about 2 years ago at [facility], she does not recall a having a history of CHF. CHOCO CÁRDENAS MD [address] [place] [address], [phone], [facility] 09/16/2021 14:42:51 10/12/2022 text/html Reason for visit [...] Has had modified barium study completed thru [facility] in past. He dysphagia symptoms seems [...] 40 mg once daily. CHOCO CÁRDENAS MD [address] [place] [address], [phone], [facility] 10/12/2022 15:36:51 OBGyn Episode No OBEpisode recorded.
[2024-11-05 15:13] LABS: NT Pro Brain Natriuretic Pep. 880 pg/mL (0-125)
[2024-11-05 15:18] LABS: D-Dimer 0.66 ug/mL (0.0-0.5)
[2024-11-05 15:29] LABS: Troponin I < 0.01 ng/ml (0.00-0.034)
--- NOTE | 2024-11-05 16:41 | ECG_ITS ---
APPROVED REPORT Exam: Resting ECG HR:61 bpm ECG Measurements Heart Rate 61 AXES WI 186 P 64 QRSd 98 QRS 55 QT 451 T 55 QTc 455 Conclusion SINUS RHYTHM LOW QRS VOLTAGE IN PRECORDIAL LEADS [QRS DEFLECTION < 1.0 mV IN CHEST LEADS] INCOMPLETE RIGHT BUNDLE BRANCH BLOCK [90+ ms QRS DURATION, TERMINAL R IN V1/V2, 40+ ms S IN I/aVL/V4/V5/V6] No STEMI Electronically signed by : EBENEZER TRACY, 11/05/2024 20:04:24
--- NOTE | 2024-11-05 16:46 | PC.NURSE ---
2nd trop has been sent at this time
--- NOTE | 2024-11-05 17:01 | P.HP_ITS ---
[facility] Disclaimer: The information contained in this section may have been updated after the patient was seen, as this information can be updated by other users. Medical History (Updated 10/28/24 @ 14:10 by Светлана Stratton APRN) BMS (burning mouth syndrome) Right ear pain Pressure sensation in right ear Hospital discharge follow-up Acute kidney injury superimposed on chronic kidney disease Elevated brain natriuretic peptide (BNP) level Chest pain Other specified symptoms and signs involving the circulatory and respiratory systems Need for shingles vaccine Encounter for screening for osteoporosis BMI over 35 Renal failure Atrophic vaginitis Peroneal tendon tear Elevated liver enzymes Pneumaturia Breast pain, right Incomplete bladder emptying NSTEMI (non-ST elevated myocardial infarction) Angina pectoris BMI 34.0-34.9,adult Neck pain Radicular pain in left arm Right-sided chest wall pain Bloating RLQ abdominal pain Acute gastroenteritis Left elbow pain Left upper arm pain Left shoulder pain Superior labrum itmrweog-dz-cxqwhkvmo (SLAP) tear of left shoulder Effusion of shoulder joint, left Traumatic tear of supraspinatus tendon of left shoulder Traumatic ecchymosis of ankle Sprain of tarsometatarsal ligament of right foot Right ankle injury Pseudomonas urinary tract infection Edema of right lower extremity High ankle sprain of right lower extremity Yeast infection of the skin Hematoma Right otitis media UTI (urinary tract infection) Vaginal yeast infection Metallic taste Thrush, oral Acute effusion of both middle ears URI (upper respiratory infection) Burping Nausea Secondary hyperparathyroidism Hoarseness Dysphagia Constipation, unspecified Abdominal pain Fatigue Neck pain on right side Urinary tract infection symptoms Pharyngitis Sinusitis Rib pain on left side Right upper quadrant pain Left breast mass H/O malignant neoplasm of breast Edema of both lower extremities Frequent falls Contusion of left upper arm Head injury Contusion of knee, left Contusion of elbow, left Skin tear of left hand without complication Dehydration, mild Kidney failure Sinusitis Labile blood pressure Typical angina Fall Syncope Dyspnea Typical angina Gallstones Discharge from left nipple Breast CA Dizziness Chest pain Breast cancer in female Extrapyramidal disorder Restless sleeper Daytime somnolence Abnormal cardiovascular stress test Atypical angina Chest pain Angina pectoris Diastolic dysfunction Edema Surgical History History of cardiac cath History of lumpectomy of left breast History of esophagogastroduodenoscopy (EGD) H/O thumb surgery H/O tubal ligation History of colonoscopy History of breast biopsy History of coronary artery bypass graft x 1 Stented coronary artery Family History Mother , at age 68 Congestive heart failure Crohn's disease Father , at age 84 Hypertension Cancer lung and colon ca Sister Diabetes Coronary artery disease Sister Cancer breast Diabetes Brother Coronary artery disease Grandmother Cancer paternal grandmother-colon ca Other No significant family history Social History Smoking Status: Never smoker second hand exposure: Yes alcohol intake: never counseling provided: none substance use type: denies use current occupational status: retired Travel in the last 8 weeks?: None household members: spouse housing: house marital status: number of children: 4 current occupational exposures/hazards: No caffeine: Yes do you feel safe at home: Yes victim of physical abuse: No victim of emotional abuse: No victim of sexual abuse: No would you like helpful sources: No Have you lived/traveled outside US in past 30 days?: No Contact w/someone who lives/traveled outside US past 30 days?: No Exposure to someone with infectious disease in past 14 days?: No Do you have a fever (greater than 100.4 F or 38 C)?: No Have you tested positive for COVID-19?: No Exposed to someone with COVID-19 in past 14 days?: No Do you have a sore throat?: No Do you have a cough?: No Do you have any weakness?: No Do you have any diarrhea?: No Are you experiencing any unusual bleeding?: No Do you have any muscle aches/pain?: No Do you have any abdominal pain?: No Are you experiencing loss of taste or smell?: No Other Medical History Have you received the Flu Vaccine for this season: No Have you received the Pneumonia Vaccine: Yes Meds Home Medications and Allergies Home Medications ?Medication ?Instructions ?Recorded ?Confirmed ?Type milnacipran 50 mg tablet (Savella) 50 mg PO BID 02/28/23 10/28/24 History nitroglycerin 0.4 mg sublingual 0.4 mg sublingual Q5-15M PRN Chest 03/09/23 10/28/24 History tablet Pain levocetirizine 5 mg tablet (Xyzal) 5 mg PO HS #90 tabs 11/07/23 10/28/24 Rx calcitriol 0.25 mcg capsule 0.25 mcg PO Q48H 12/07/23 10/28/24 History fluticasone propionate 50 1 spray intranasal DAILYP PRN 01/09/24 10/28/24 History mcg/actuation nasal ALLERGIES spray,suspension (Allergy Relief (fluticasone)) fenofibrate nanocrystallized 145 145 mg PO DAILY #90 tabs 02/22/24 10/28/24 Rx mg tablet cholecalciferol (vitamin D3) 25 25 mcg PO DAILY 03/25/24 10/28/24 History mcg (1,000 unit) capsule magnesium oxide 400 mg PO DAILY Supplement 03/25/24 10/28/24 History isosorbide mononitrate 60 mg 60 mg PO BID #180 tabs 05/20/24 10/28/24 Rx tablet,extended release 24 hr bisoprolol fumarate 5 mg tablet 5 mg PO BID #60 tabs 07/31/24 10/28/24 Rx escitalopram oxalate 20 mg tablet 20 mg PO DAILY 08/22/24 10/28/24 History ranolazine 1,000 mg 1,000 mg PO BID 08/22/24 10/28/24 History tablet,extended release,12 hr azelastine 137 mcg (0.1 %) nasal 1 spray intranasal BIDP PRN 09/05/24 10/28/24 History spray Allergy Symptoms insulin human U-100 NPH-regulr 31 unit SQ BID 09/05/24 10/28/24 History 70-30 mix 100 unit/mL subcutaneous susp (Novolin 70/30 U-100 Insulin) empagliflozin 10 mg tablet 10 mg PO DAILY Diabetes #90 tabs 09/09/24 10/28/24 Rx (Jardiance) furosemide 20 mg tablet 40 mg (2 x 20 mg) PO Q48H #30 tabs 09/11/24 10/28/24 Rx clopidogrel 75 mg tablet 75 mg PO DAILY #90 tabs 09/13/24 10/28/24 Rx pregabalin 25 mg capsule 25 mg PO HS #30 caps 09/19/24 10/28/24 Rx estradiol 0.01% (0.1 mg/gram) 1 appful vaginal DIRECTED #42.5 09/23/24 10/28/24 Rx vaginal cream grams oxybutynin chloride 10 mg 10 mg PO DAILY #90 tabs 09/23/24 10/28/24 Rx tablet,extended release 24 hr ezetimibe 10 mg tablet See Rx Instructions .Route 09/25/24 10/28/24 Rx .COMPLEX #90 tabs flash glucose sensor (FreeStyle #6 ea 09/30/24 10/23/24 Rx Mounika 14 Day Sensor kit) nystatin 100,000 unit/mL oral 500,000 unit (5 mL) PO QID 10 days 10/14/24 10/28/24 Rx suspension #200 mL pantoprazole 40 mg tablet,delayed See Rx Instructions .Route 10/14/24 10/28/24 Rx release .COMPLEX #90 tabs hydralazine 10 mg tablet 10 mg PO TID #90 tabs 10/23/24 10/28/24 Rx evolocumab 140 mg/mL subcutaneous See Rx Instructions .Route 10/29/24 Rx pen injector (NanoRacks) .COMPLEX #2 mL New Prescriptions to Start Prescriptions: Allergies Allergy/AdvReac Type Severity Reaction Status Date / Time Wvmhpoh-XKG-KfK Reductase Allergy Severe Unknown Verified 10/28/24 13:44 Inhibitor (Zvvgthz-Sra-Fqw allergy Reductase Inhibitor) reaction Penicillins Allergy Intermediate I-RASH Verified 10/28/24 13:44 losartan Allergy Mild Verified 10/28/24 13:44 cefuroxime (From Ceftin) Allergy Unknown Verified 10/28/24 13:44 allergy reaction hydrocodone AdvReac Verified 10/28/24 13:44 Exam Data for Last 24 hours Vital signs and Labs for Last 24 Hours: Temp Pulse Resp BP Pulse Ox O2 Del Method 98.3 F 60 17 164/65 H 98 Room Air 11/05/24 14:39 11/05/24 16:30 11/05/24 14:39 11/05/24 16:30 11/05/24 16:30 11/05/24 14:39 Laboratory Results - last 24 hr 11/05/24 14:45: WBC 6.0, RBC 4.30, Hgb 12.5, Hct 38.1, MCV 88.6, MCH 29.1, MCHC 32.8, RDW 13.8, Plt Count 263, MPV 10.0, Neut % (Auto) 66.3, Lymph % (Auto) 23.8, [place] % (Auto) 7.6, Eos % (Auto) 0.8, Baso % (Auto) 0.5, Neut # (Auto) 4.0, Lymph # (Auto) 1.4, [place] # (Auto) 0.5, Eos # (Auto) 0.1, Baso # (Auto) 0.0, PT 11.4, INR 1.03, D-Dimer 0.66 H, Sodium 137, Potassium 4.4, Chloride 104, Carbon Dioxide 26, Anion Gap 11.4, BUN 22 H, Creatinine 1.40 H, Estimated Creat Clear 53, Estimated GFR 37 L, Est GFR ( Amer) 44 L, Glucose 87, Calcium 8.6, Magnesium 2.1, Total Bilirubin 0.5, AST 36, ALT 26, Alkaline Phosphatase 46, Troponin I < 0.01, NT-Pro-B Natriuret Pep 880 H, Total Protein 6.7, Albumin 4.2, Globulin 2.5, Albumin/Globulin Ratio 1.7, Lipase 51 I & O for Last 24 hours: Intake & Output 11/02/24 11/03/24 11/04/24 11/05/24 23:59 23:59 23:59 23:59 Weight 94.801 kg
[2024-11-05 17:16] LABS: Troponin I < 0.01 ng/ml (0.00-0.034)
--- NOTE | 2024-11-05 18:26 | PC.NURSE ---
report called to LINDA Mcqueen
--- NOTE | 2024-11-05 18:54 | PC.NURSE ---
Pt. on floor and tech getting vitals.
--- NOTE | 2024-11-05 19:44 | PC.NURSE ---
Attempted to contact hospitalist about patient chest pain 01/19, sharp and burning, non radiating. No answer at this time.
--- NOTE | 2024-11-05 20:43 | EXP.HP ---
History of Present Illness *Admission Date: 11/05/24 *Reason for visit:: Chest pain *History of present illness: 74-year-old female presents emergency department with chest pain that is substernal nonradiating for 36 hours duration. Patient states that yesterday morning (11/04/2024) she started having substernal heaviness radiating to her back. Rated 8 out of 10. She took 2 nitroglycerin which did relieve the pain. However it did return and stayed consistent throughout the day until today. She again took 3 nitroglycerin today every 5 minutes and continued to have chest pain so came to the emergency department for evaluation. She also endorses worsening shortness of breath and also orthopnea. She has minimal lower extremity edema. She has persistent thirst and has been drinking excessively. denies any fever chills, admits to shortness of breath, with exertion, admits to nausea no abdominal pain, admits to chronic constipation, no diarrhea, no melena no hematochezia no hematemesis or hemoptysis, no urinary type symptomatology An EKG troponins were negative x 2. EKG shows normal sinus rhythm with no ST deviations Has significant revascularization history including bypass surgery and multiple PCI. History independently obtained. Prior data and records reviewed. Diagnostic and radiographic findings independently interpreted. [facility] Disclaimer: The information contained in this section may have been updated after the patient was seen, as this information can be updated by other users. Medical History (Updated 11/05/24 @ 17:02 by BRADY Roland) BMS (burning mouth syndrome) Right ear pain Pressure sensation in right ear Hospital discharge follow-up Acute kidney injury superimposed on chronic kidney disease Elevated brain natriuretic peptide (BNP) level Chest pain Other specified symptoms and signs involving the circulatory and respiratory systems Need for shingles vaccine Encounter for screening for osteoporosis BMI over 35 Renal failure Atrophic vaginitis Peroneal tendon tear Elevated liver enzymes Pneumaturia Breast pain, right Incomplete bladder emptying NSTEMI (non-ST elevated myocardial infarction) Angina pectoris BMI 34.0-34.9,adult Neck pain Radicular pain in left arm Right-sided chest wall pain Bloating RLQ abdominal pain Acute gastroenteritis Left elbow pain Left upper arm pain Left shoulder pain Superior labrum ufohgesf-[id number] (SLAP) tear of left shoulder Effusion of shoulder joint, left Traumatic tear of supraspinatus tendon of left shoulder Traumatic ecchymosis of ankle Sprain of tarsometatarsal ligament of right foot Right ankle injury Pseudomonas urinary tract infection Edema of right lower extremity High ankle sprain of right lower extremity Yeast infection of the skin Hematoma Right otitis media UTI (urinary tract infection) Vaginal yeast infection Metallic taste Thrush, oral Acute effusion of both middle ears URI (upper respiratory infection) Burping Nausea Secondary hyperparathyroidism Hoarseness Dysphagia Constipation, unspecified Abdominal pain Fatigue Neck pain on right side Urinary tract infection symptoms Pharyngitis Sinusitis Rib pain on left side Right upper quadrant pain Left breast mass H/O malignant neoplasm of breast Edema of both lower extremities Frequent falls Contusion of left upper arm Head injury Contusion of knee, left Contusion of elbow, left Skin tear of left hand without complication Dehydration, mild Kidney failure Sinusitis Labile blood pressure Typical angina Fall Syncope Dyspnea Typical angina Gallstones Discharge from left nipple Breast CA Dizziness Chest pain Breast cancer in female Extrapyramidal disorder Restless sleeper Daytime somnolence Abnormal cardiovascular stress test Atypical angina Chest pain Angina pectoris Diastolic dysfunction Edema Surgical History History of cardiac cath History of lumpectomy of left breast History of esophagogastroduodenoscopy (EGD) H/O thumb surgery H/O tubal ligation History of colonoscopy History of breast biopsy History of coronary artery bypass graft x 1 Stented coronary artery Family History Mother , at age 68 Congestive heart failure Crohn's disease Father , at age 84 Hypertension Cancer lung and colon ca Sister Diabetes Coronary artery disease Sister Cancer breast Diabetes Brother Coronary artery disease Grandmother Cancer paternal grandmother-colon ca Other No significant family history Social History (Updated 11/05/24 @ 20:11 by Ning Dietz RN) Smoking Status: Never smoker second hand exposure: Yes alcohol intake: never counseling provided: none substance use type: denies use current occupational status: retired Travel in the last 8 weeks?: None household members: spouse housing: house marital status: number of children: 4 current occupational exposures/hazards: No caffeine: Yes do you feel safe at home: Yes victim of physical abuse: No victim of emotional abuse: No victim of sexual abuse: No would you like helpful sources: No Have you lived/traveled outside [place] in past 30 days?: No Contact w/someone who lives/traveled outside US past 30 days?: No Exposure to someone with infectious disease in past 14 days?: No Do you have a fever (greater than 100.4 F or 38 C)?: No Have you tested positive for COVID-19?: No Exposed to someone with COVID-19 in past 14 days?: No Do you have a sore throat?: No Do you have a cough?: No Do you have any weakness?: No Do you have any diarrhea?: No Are you experiencing any unusual bleeding?: No Do you have any muscle aches/pain?: No Do you have any abdominal pain?: No Are you experiencing loss of taste or smell?: No Other Medical History Have you received the Flu Vaccine for this season: Yes Have you received the Pneumonia Vaccine: Yes Review of Systems Review of Systems Review of systems:: pertinent systems reviewed and negative unless documented below Constitutional Constitutional: Reports body ache(s) Eyes Eyes: Reports as per HPI ENT Ears, Nose, Mouth, and Throat: Reports as per HPI *Cardiovascular Cardiovascular: Reports as per HPI, Reports chest pain, Reports chest pain at rest, Reports chest pain with activity, Reports dyspnea on exertion and Denies leg edema *Respiratory Respiratory: Reports dyspnea on exertion *Gastrointestinal Gastrointestinal: Reports as per HPI *Genitourinary Genitourinary: Reports as per HPI *Musculoskeletal Musculoskeletal: Reports as per HPI *Neurologic Neurologic: Reports as per HPI Meds Home Medications and Allergies Home Medications ?Medication ?Instructions ?Recorded ?Confirmed ?Type milnacipran 50 mg tablet (Savella) 50 mg PO BID 02/28/23 11/05/24 History nitroglycerin 0.4 mg sublingual 0.4 mg sublingual Q5-15M PRN Chest 03/09/23 11/05/24 History tablet Pain levocetirizine 5 mg tablet (Xyzal) 5 mg PO HS #90 tabs 11/07/23 11/05/24 Rx calcitriol 0.25 mcg capsule 0.25 mcg PO Q48H 12/07/23 11/05/24 History fluticasone propionate 50 1 spray intranasal DAILYP PRN 01/09/24 11/05/24 History mcg/actuation nasal ALLERGIES spray,suspension (Allergy Relief (fluticasone)) cholecalciferol (vitamin D3) 25 25 mcg PO DAILY 03/25/24 11/05/24 History mcg (1,000 unit) capsule magnesium oxide 400 mg PO DAILY Supplement 03/25/24 11/05/24 History isosorbide mononitrate 60 mg 60 mg PO BID #180 tabs 05/20/24 11/05/24 Rx tablet,extended release 24 hr bisoprolol fumarate 5 mg tablet 5 mg PO BID #60 tabs 07/31/24 11/05/24 Rx escitalopram oxalate 20 mg tablet 20 mg PO DAILY 08/22/24 11/05/24 History ranolazine 1,000 mg 1,000 mg PO BID 08/22/24 11/05/24 History tablet,extended release,12 hr azelastine 137 mcg (0.1 %) nasal 1 spray intranasal BIDP PRN 09/05/24 11/05/24 History spray Allergy Symptoms insulin human U-100 NPH-regulr 35 unit SQ BID 09/05/24 11/05/24 History 70-30 mix 100 unit/mL subcutaneous susp (Novolin 70/30 U-100 Insulin) empagliflozin 10 mg tablet 10 mg PO DAILY Diabetes #90 tabs 09/09/24 11/05/24 Rx (Jardiance) furosemide 20 mg tablet 40 mg (2 x 20 mg) PO Q48H #30 tabs 09/11/24 11/05/24 Rx clopidogrel 75 mg tablet 75 mg PO DAILY #90 tabs 09/13/24 11/05/24 Rx pregabalin 25 mg capsule 25 mg PO HS #30 caps 09/19/24 11/05/24 Rx estradiol 0.01% (0.1 mg/gram) 1 appful vaginal DIRECTED #42.5 09/23/24 11/05/24 Rx vaginal cream grams oxybutynin chloride 10 mg 10 mg PO DAILY #90 tabs 09/23/24 11/05/24 Rx tablet,extended release 24 hr flash glucose sensor (FreeStyle #6 ea 09/30/24 11/05/24 Rx Mounika 14 Day Sensor kit) hydralazine 10 mg tablet 10 mg PO TID #90 tabs 10/23/24 11/05/24 Rx evolocumab 140 mg/mL subcutaneous 140 mg SQ . 11/05/24 11/05/24 History pen injector (Conchita Muñoz) ezetimibe 10 mg tablet 10 mg PO DAILY 11/05/24 11/05/24 History pantoprazole 40 mg tablet,delayed 40 mg PO DAILY 11/05/24 11/05/24 History release New Prescriptions to Start Prescriptions: Allergies Allergy/AdvReac Type Severity Reaction Status Date / Time Yczrrid-YDY-SrK Reductase Allergy Severe Unknown Verified 10/28/24 13:44 Inhibitor (Tlxjbgz-Mss-Knz allergy Reductase Inhibitor) reaction Penicillins Allergy Intermediate I-RASH Verified 10/28/24 13:44 losartan Allergy Mild Verified 10/28/24 13:44 cefuroxime (From Ceftin) Allergy Unknown Verified 10/28/24 13:44 allergy reaction hydrocodone AdvReac Verified 10/28/24 13:44 Exam Data for Last 24 hours Vital signs and Labs for Last 24 Hours: Temp Pulse Resp BP Pulse Ox O2 Del Method 97.9 F 64 16 129/54 L 100 Room Air 11/05/24 20:00 11/05/24 20:00 11/05/24 20:00 11/05/24 20:00 11/05/24 20:00 11/05/24 20:00 Laboratory Results - last 24 hr 11/05/24 14:45: WBC 6.0, RBC 4.30, Hgb 12.5, Hct 38.1, MCV 88.6, MCH 29.1, MCHC 32.8, RDW 13.8, Plt Count 263, MPV 10.0, Neut % (Auto) 66.3, Lymph % (Auto) 23.8, [place] % (Auto) 7.6, Eos % (Auto) 0.8, Baso % (Auto) 0.5, Neut # (Auto) 4.0, Lymph # (Auto) 1.4, [place] # (Auto) 0.5, Eos # (Auto) 0.1, Baso # (Auto) 0.0, PT 11.4, INR 1.03, D-Dimer 0.66 H, Sodium 137, Potassium 4.4, Chloride 104, Carbon Dioxide 26, Anion Gap 11.4, BUN 22 H, Creatinine 1.40 H, Estimated Creat Clear 53, Estimated GFR 37 L, Est GFR ( Amer) 44 L, Glucose 87, Calcium 8.6, Magnesium 2.1, Total Bilirubin 0.5, AST 36, ALT 26, Alkaline Phosphatase 46, Troponin I < 0.01, NT-Pro-B Natriuret Pep 880 H, Total Protein 6.7, Albumin 4.2, Globulin 2.5, Albumin/Globulin Ratio 1.7, Lipase 51 11/05/24 16:43: Troponin I < 0.01 I & O for Last 24 hours: Intake & Output 11/02/24 11/03/24 11/04/24 11/05/24 23:59 23:59 23:59 23:59 Weight 90.718 kg Constitutional Constitutional: no acute distress *Routine HEENT Exam Head: Present normocephalic Eye: Present EOMI and PERRL ENT: Present mucous membranes moist *Routine Neck Exam Neck: Present supple and JVD; Absent lymphadenopathy *Routine Respiratory Exam Respiratory: Present CTA bilaterally *Routine Cardiovascular Exam Cardiovascular: Present RRR, Normal S1, Normal S2, gallop and S3 *Routine Abdominal Exam Abdominal: Present soft and normoactive bowel sounds; Absent tenderness *Routine Rectal Exam Rectal:: deferred *Routine Genitalia Exam Genitalia:: deferred *Routine Extremities Exam Extremities: Absent cyanosis, clubbing or edema *Routine Skin Exam Skin: Present warm; Absent rash *Routine Neurological Exam Neurological: Present alert and oriented X3 Assessment and Plan *Assessment and plan (1) CAD (coronary artery disease): Status: Acute Qualifiers: Associated angina: with unspecified form of angina Coronary Disease-Associated Artery/Lesion type: [place] artery [place] vs. transplanted heart: circle heart Qualified Code(s): I25.119 - Atherosclerotic heart disease of [place] coronary artery with unspecified angina pectoris Category: Medical Code(s): I25.10 - Atherosclerotic heart disease of [place] coronary artery without angina pectoris (2) Uncontrolled hypertension: Status: Acute Category: Medical Code(s): I10 - Essential (primary) hypertension (3) Obesity, Class II, BMI 35-39.9: Status: Acute Category: Medical Code(s): E66.812 - Obesity, class 2 (4) Fatty liver: Status: Acute Category: Medical Code(s): K76.0 - Fatty (change of) liver, not elsewhere classified (5) DM type 2 (diabetes mellitus, type 2): Status: Chronic Qualifiers: Diabetes mellitus complication status: with other specified complication Diabetes mellitus jail insulin use: unspecified 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 Betts Status: Chronic Qualifiers: Associated angina: with other forms of angina Coronary Disease-Associated Artery/Lesion type: [place] artery [place] vs. transplanted heart: circle heart Qualified Code(s): I25.118 - Atherosclerotic heart disease of [place] coronary artery with other forms of angina pectoris Category: Medical Code(s): I25.10 - Atherosclerotic heart disease of [place] coronary artery without angina pectoris (8) History of coronary artery bypass graft x 1: Problem Comment: 05/2019, Dr. Puckett Status: Chronic Category: Surgical Code(s): Z95.1 - Presence of aortocoronary bypass graft Plan 74-year-old female multiple cardiovascular risk factors extensive coronary revascularization CABG and multiple PCI. Comes in with chest pain, unremarkable EKG with no ST deviations and negative troponin delta. Has a history of diastolic dysfunction and clinically seems hyper volemic, connie monroe. Patient will also benefit from increased antianginal and improved antihypertensive regimen Chest pain - Recent heart cath demonstrating no significant epicardial coronary disease. With normal EKG and negative troponins it is unlikely within 2 months that she would have developed significant stenosis. Will defer invasive angiography at this time. may consider spect, but at this time also unlikely to provide useful information - connie monroe. lasix 40 IV BID x2. assess response. - monitor tele - echo -cardiology consult - increase antianginal therapy : - if she remains hypertensive would change bisprolol to coreg, add amlodipine HTN - discontinued hydralazine due to non specific aches and pains previously labelled as fibromyalgia, could represent hydralazine drug induced lupus. additionally it is not a good antihypertensive with peaks and troughs. will consider drug induced lupus panel - ideally should be on yoshi or arb for renal protection given diabetes, was discontinued due to ckd (GFR well above threshold) - will see what her BP does with holding hydralazine and diuresis, if remains hypertensive switch bisoprolol to coreg and start amlodipine DM - insulin CAD - continue DAPT
[2024-11-05] MEDS: FUROSEMIDE 40MG/4ML VIAL 40 MG IV (21:17)
[2024-11-05] MEDS: BISOPROLOL 5MG TABLET 5 MG PO (21:17)
[2024-11-05] MEDS: OXYBUTYNIN 5MG TAB 5 MG PO (21:17)
[2024-11-05] MEDS: PREGABALIN 25MG CAPSULE 25 MG PO (21:17)
[2024-11-05] MEDS: ISOSORBIDE MONO 60MG TAB.ER.24H 60 MG PO (21:19)
[2024-11-05] MEDS: PATIENT'S OWN HOME MEDICATION (Ranolazine 1,000 mg tablet extended release 12 hr) 1000 EACH PO (21:20)
[2024-11-05 22:03] LABS: Troponin I < 0.01 ng/ml (0.00-0.034)
[2024-11-06] VITALS (7 sets, daily range): BP systolic 115–131; BP diastolic 49–55; PULSE 67–80; RESP 16–18; TEMP 36.7–36.9; O2SAT 93–97; BMI 36.8
--- NOTE | 2024-11-06 04:26 | PC.NURSE ---
Alert and oriented. Complained of chest pain one time this shift, PRN pain medication given per MAR. No other complaints from patient. Patient using bedside commode with standby assist. Lung sounds clear. Room air. Abdomen soft and nontender. NPO PMN. Call light in reach.
[2024-11-06 06:43] LABS: Basophils % 0.4 % (0.1-2.0); Eosinophils % 0.8 % (0.1-12.0); Hemoglobin 11.9 g/dL (12.2-16.2); Immature Granulocytes # 0.03 10^3uL; Immature Granulocytes % 0.6 %; Lymphocytes # 1.4 K/mm3 (0.7-4.5); Lymphocytes % 27.9 % (10-50); Mean Corpuscular HGB Conc 33.1 g/dL (31.8-35.4); Mean Corpuscular Hemoglobin 29.1 pg (27.0-31.2); Mean Platelet Volume 10.3 fl (7.4-10.4); Monocytes # 0.4 K/mm3 (0.1-1.0); Monocytes % 8.8 % (1.7-9.3); Neutrophils % 61.5 % (37.0-80.0); Nucleated Red Blood Cells # 0 10^3/uL; Nucleated Red Blood Cells % 0 %; Platelet Count 244 K/mm3 (142-424); Red Blood Count 4.09 M/mm3 (4.20-5.40); Red Cell Distribution Width 13.8 % (11.5-17.5); Red Cell Distribution Width-SD 44.8 fL; White Blood Count 4.9 K/mm3 (4.8-10.8)
[2024-11-06 07:30] LABS: Alanine Aminotransferase 23 U/L (12-78); Albumin Level 3.9 g/dl (3.5-5.0); Albumin/Globulin Ratio 1.6 (1.1-1.8); Alkaline Phosphatase 52 U/L (38-126); Anion Gap 12.1 mEq/L (5-15); Aspartate Amino Transferase 29 U/L (14-36); Bilirubin,Total 0.5 mg/dl (0.2-1.3); Blood Urea Nitrogen 22 mg/dl (7-17); Calcium 8.3 mg/dl (8.4-10.2); Carbon Dioxide 25 mmol/L (22.0-30.0); Chloride 102 mmol/L (98-107); Creatinine Clearance Estimated 47 mL/min (50-200); Estimated Glomerular Filt Rate 34 ml/min (>60); GFR (African American) 41 ML/MIN (>60); Globulin 2.4 g/dL (1.3-3.2); Glucose 139 mg/dl (74-100); Potassium 4.1 mmoL/L (3.5-5.1); Sodium 135 mmol/L (136-145); Total Protein,Serum 6.3 g/dl (6.3-8.2)
[2024-11-06] MEDS: MAGNESIUM OXIDE 400MG TABLET 400 MG PO (09:12)
[2024-11-06] MEDS: FUROSEMIDE 40MG/4ML VIAL 40 MG IV (09:12)
[2024-11-06] MEDS: EZETIMIBE 10MG TABLET 10 MG PO (09:12)
[2024-11-06] MEDS: ESCITALOPRAM 20MG TABLET 20 MG PO (09:13)
[2024-11-06] MEDS: EMPAGLIFLOZIN 10MG TABLET 10 MG PO (09:13)
[2024-11-06] MEDS: RANOLAZINE 500MG ER TABLET 1000 MG PO (09:13)
[2024-11-06] MEDS: OXYBUTYNIN 5MG TAB 5 MG PO (09:13)
[2024-11-06] MEDS: CLOPIDOGREL 75MG TAB 75 MG PO (09:13)
[2024-11-06] MEDS: BISOPROLOL 5MG TABLET 5 MG PO (09:13)
[2024-11-06] MEDS: LORATADINE 10MG TABLET 10 MG PO (09:13)
[2024-11-06] MEDS: ISOSORBIDE MONO 60MG TAB.ER.24H 60 MG PO (09:13)
[2024-11-06 10:29] LABS: POC Glucose,Bedside 164 (70-110)
[2024-11-06] MEDS: FUROSEMIDE 40MG/4ML VIAL 60 MG IV ×2 (12:29→17:30)
[2024-11-06 17:35] LABS: POC Glucose,Bedside 200 (70-110)
--- NOTE | 2024-11-06 18:33 | EXP.ACUTE.PN ---
Subjective *Date: 11/06/24 *Time: 22:50 Interval history: Patient still having left-sided chest pain. No better or worse with exertion or rest. Stable on room air. -1.4 L since admission. afebrile. Medical Exam Vital signs and Labs for Last 24 Hours: Vital Signs Temp Pulse Pulse Resp BP BP Pulse Ox 11/06/24 18:29 11/06/24 16:00 80 11/06/24 12:00 70 11/06/24 11:58 98.5 F 74 18 127/55 L 95 11/06/24 09:48 11/06/24 08:26 11/06/24 08:00 70 11/06/24 08:00 98.4 F 67 18 122/50 L 97 11/06/24 07:43 11/06/24 06:42 11/06/24 05:00 11/06/24 04:00 98.1 F 71 16 131/53 L 93 L 11/06/24 04:00 70 11/06/24 02:59 11/06/24 01:00 11/06/24 00:00 80 11/05/24 23:44 98.1 F 71 16 115/49 L 92 L 11/05/24 23:00 11/05/24 21:00 11/05/24 20:38 65 11/05/24 20:00 97.9 F 64 16 129/54 L 100 11/05/24 19:19 62 18 146/52 H 99 11/05/24 19:05 98.2 F 80 20 150/78 H 11/05/24 18:45 O2 Del Method 11/06/24 18:29 Room Air 11/06/24 16:00 11/06/24 12:00 11/06/24 11:58 Room Air 11/06/24 09:48 Room Air 11/06/24 08:26 Room Air 11/06/24 08:00 11/06/24 08:00 Room Air 11/06/24 07:43 Room Air 11/06/24 06:42 Room Air 11/06/24 05:00 Room Air 11/06/24 04:00 Room Air 11/06/24 04:00 11/06/24 02:59 Room Air 11/06/24 01:00 Room Air 11/06/24 00:00 11/05/24 23:44 Room Air 11/05/24 23:00 Room Air 11/05/24 21:00 Room Air 11/05/24 20:38 11/05/24 20:00 Room Air 11/05/24 19:19 Room Air 11/05/24 19:05 Room Air 11/05/24 18:45 Room Air Intake and Output 11/06/24 11/06/24 11/06/24 07:59 15:59 23:59 Intake Total 180 / 180 Output Total 1600 / 2500 900 / 2500 Balance -1420 / -2320 -900 / -2320 Intake: Intake, Oral Amount 180 / 180 Output: Output, Urine Amount 1600 / 2500 900 / 2500 Other: Number of Unmeasured Voids 0 0 Weight 90.9 kg Patient Weight 11/06/24 23:59 Weight 90.9 kg Laboratory Results - last 24 hr 11/05/24 21:33: Troponin I < 0.01 11/06/24 05:35: WBC 4.9, RBC 4.09 L, Hgb 11.9 L, Hct 36.0 L, MCV 88.0, MCH 29.1, MCHC 33.1, RDW 13.8, Plt Count 244, MPV 10.3, Neut % (Auto) 61.5, Lymph % (Auto) 27.9, [place] % (Auto) 8.8, Eos % (Auto) 0.8, Baso % (Auto) 0.4, Neut # (Auto) 3.0, Lymph # (Auto) 1.4, [place] # (Auto) 0.4, Eos # (Auto) 0.0, Baso # (Auto) 0.0, Sodium 135 L, Potassium 4.1, Chloride 102, Carbon Dioxide 25, Anion Gap 12.1, BUN 22 H, Creatinine 1.50 H, Estimated Creat Clear 47, Estimated GFR 34 L, Est GFR ( Amer) 41 L, Glucose 139 H D, Calcium 8.3 L, Magnesium 2.0, Total Bilirubin 0.5, AST 29, ALT 23, Alkaline Phosphatase 52, Total Protein 6.3, Albumin 3.9, Globulin 2.4, Albumin/Globulin Ratio 1.6 11/06/24 10:21: POC Glucose 164 H 11/06/24 17:27: POC Glucose 200 H I & O for Labs for Last 24 Hours: Intake & Output 11/03/24 11/04/24 11/05/24 11/06/24 23:59 23:59 23:59 23:59 Intake Total 180 / 180 Output Total 0 / 0 2500 / 2500 Balance 0 / 180 -2320 / -2320 Weight 90.718 kg 90.9 kg Constitutional: Present no acute distress, obese and cooperative Head: Present atraumatic and normocephalic ENT: Present normal exam Respiratory: Present normal respiratory effort; Absent rhonchi, wheezes or crackles Cardiac: Present Reg Rate and Rhythm Comment:: Chest tender to palpation along lateral border of sternal scar. GI: Present normal bowel sounds; Absent tenderness Extremities: Present normal inspection and full ROM Skin: Present intact; Absent erythema Neuro: Present Grossly Intact, alert, awake, oriented x 3 and moves all extremities Assessment and Plan *Assessment and plan (1) CAD (coronary artery disease): Status: Acute Qualifiers: Coronary Disease-Associated Artery/Lesion type: [place] artery [place] vs. transplanted heart: [place] heart Associated angina: with unspecified form of angina Qualified Code(s): I25.119 - Atherosclerotic heart disease of [place] coronary artery with unspecified angina pectoris Category: Medical Code(s): I25.10 - Atherosclerotic heart disease of [place] coronary artery without angina pectoris (2) Uncontrolled hypertension: Status: Acute Category: Medical Code(s): I10 - Essential (primary) hypertension (3) Obesity, Class II, BMI 35-39.9: Status: Acute Category: Medical Code(s): E66.812 - Obesity, class 2 (4) Fatty liver: Status: Acute Category: Medical Code(s): K76.0 - Fatty (change of) liver, not elsewhere classified (5) DM type 2 (diabetes mellitus, type 2): Status: Chronic Qualifiers: Diabetes mellitus senior living insulin use: unspecified 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 Betts Status: Chronic Qualifiers: Associated angina: with other forms of angina Coronary Disease-Associated Artery/Lesion type: [place] artery [place] vs. transplanted heart: [place] heart Qualified Code(s): I25.118 - Atherosclerotic heart disease of [place] coronary artery with other forms of angina pectoris Category: Medical Code(s): I25.10 - Atherosclerotic heart disease of [place] coronary artery without angina pectoris (8) History of coronary artery bypass graft x 1: Problem Comment: 05/2019, Dr. Puckett Status: Chronic Category: Surgical Code(s): Z95.1 - Presence of aortocoronary bypass graft Plan 74-year-old female multiple cardiovascular risk factors extensive coronary revascularization CABG and multiple PCI. Comes in with chest pain, unremarkable EKG with no ST deviations and negative troponin delta. Has a history of diastolic dysfunction and clinically seems hyper volemic, will diurese. Patient will also benefit from increased antianginal and improved antihypertensive regimen Chest pain - Recent heart cath demonstrating no significant epicardial coronary disease. With normal EKG and negative troponins it is unlikely within 2 months that she would have developed significant stenosis. Will defer invasive angiography at this time. may consider spect, but at this time also unlikely to provide useful information - Patient presented with persistent chest pain. He has extensive history of coronary artery disease. Has had multiple heart caths in the past. Most recent in August which showed patent coronary artery disease with elevated left ventricular end-diastolic pressures. Continue increased diuresis. Cardiology recommends Lasix 60 mg IV twice daily. - Echo obtained with normal EF and no significant change from previous exams. - Reevaluate in the morning for possible heart cath pending response to diuresis. HTN - discontinued hydralazine due to non specific aches and pains previously labelled as fibromyalgia, could represent hydralazine drug induced lupus. additionally it is not a good antihypertensive with peaks and troughs. will consider drug induced lupus panel - ideally should be on yoshi or arb for renal protection given diabetes, was discontinued due to ckd (GFR well above threshold) - will see what her BP does with holding hydralazine and diuresis, if remains hypertensive switch bisoprolol to coreg and start amlodipine -BUN 22, creatinine 1.5, potassium 4.1. Repeat CBC, CMP, magnesium ordered for the morning. DM: Morning glucose 139. Continue sliding scale insulin and fingersticks ACHS CAD: continue DAPT Full code
--- NOTE | 2024-11-06 20:42 | CA_ITS ---
APPROVED REPORT EXAM: Limited 2D and color flow Echocardiogram Hydrate Control Tender: Lesvia Dawson RCS, RVS Ht: 5 ft 2 in Wt: 200lbs BSA: 1.91 BP: 115/46 mmHg Indications: CHF, CP, DM, HTN, HLD M-Mode Dimensions RVDd 2.02 cm (0.9-2.6) LA Diam 4.12 cm (1.9-4.0) LVDd 4.44 cm (3.5-5.7) LVDs 2.83 cm (3.5-5.7) IVSd 1.01 cm (0.6-1.1) PWd 1.01 cm (0.6-1.1) EF (Teich) 67.70% EPSs 0.57 cm FS 37.50% EDV (Teich) 93.90 mL ESV (Teich) 30.30 mL Other Information Study Quality: Fair Conclusion This is a limited TTE to evaluate for LV systolic function. Limited windows are obtained. The left ventricle is normal in size. There is increased LV wall thickness. There is normal global LV systolic function. No regional wall motion abnormalities are noted. LVEF is 55%. Electronically signed by : Daisy Wilkins MD 11/06/2024 12:08:53
--- NOTE | 2024-11-06 20:54 | EXP.CARD.CON ---
History of Present Illness History of Present Illness Consult date: 11/06/24 Requesting physician: Jose F Patricio Consult reason: chest pain Chief complaint: Chest pain History of present illness: This is a 74-year-old white female who presents to the hospital with chest pain. She states that her chest pain started at 2 AM on Monday. She states that this is a substernal heaviness radiating to her back and down her left arm. She states she took 2 nitroglycerin which did relieve her pain. However throughout the day Monday she chest pain intermittently and then got worse Monday night she took 2 more nitroglycerin with improvement in her chest pain. In the Monday morning she states that she woke up with more chest pain and had to take nitroglycerin every 5 minutes and took 3 tablets with improvement in her chest pain but at point she decided to come to the emergency department for further evaluation her with her symptoms. She states that she does have shortness of breath and orthopnea as well with her chest pain. She says she has some lower extremity edema as well. She is currently taking her diuretics every other day. She denies any fever, chills, nausea, vomiting, diarrhea. She ruled out for an AR. The patient had a recent cardiac catheterization in August of this year which showed patent coronary artery disease. [facility] Disclaimer: The information contained in this section may have been updated after the patient was seen, as this information can be updated by other users. Medical History (Updated 11/06/24 @ 21:00 by Santa Pena APRN) Angina pectoris Elevated left ventricular end-diastolic pressure (LVEDP) BMS (burning mouth syndrome) Right ear pain Pressure sensation in right ear Hospital discharge follow-up Acute kidney injury superimposed on chronic kidney disease Elevated brain natriuretic peptide (BNP) level Chest pain Other specified symptoms and signs involving the circulatory and respiratory systems Need for shingles vaccine Encounter for screening for osteoporosis BMI over 35 Renal failure Atrophic vaginitis Peroneal tendon tear Elevated liver enzymes Pneumaturia Breast pain, right Incomplete bladder emptying NSTEMI (non-ST elevated myocardial infarction) BMI 34.0-34.9,adult Neck pain Radicular pain in left arm Right-sided chest wall pain Bloating RLQ abdominal pain Acute gastroenteritis Left elbow pain Left upper arm pain Left shoulder pain Superior labrum ywosdldm-wx-vymiibziu (SLAP) tear of left shoulder Effusion of shoulder joint, left Traumatic tear of supraspinatus tendon of left shoulder Traumatic ecchymosis of ankle Sprain of tarsometatarsal ligament of right foot Right ankle injury Pseudomonas urinary tract infection Edema of right lower extremity High ankle sprain of right lower extremity Yeast infection of the skin Hematoma Right otitis media UTI (urinary tract infection) Vaginal yeast infection Metallic taste Thrush, oral Acute effusion of both middle ears URI (upper respiratory infection) Burping Nausea Secondary hyperparathyroidism Hoarseness Dysphagia Constipation, unspecified Abdominal pain Fatigue Neck pain on right side Urinary tract infection symptoms Pharyngitis Sinusitis Rib pain on left side Right upper quadrant pain Left breast mass H/O malignant neoplasm of breast Edema of both lower extremities Frequent falls Contusion of left upper arm Head injury Contusion of knee, left Contusion of elbow, left Skin tear of left hand without complication Dehydration, mild Kidney failure Sinusitis Labile blood pressure Typical angina Fall Syncope Dyspnea Typical angina Gallstones Discharge from left nipple Breast CA Dizziness Chest pain Breast cancer in female Extrapyramidal disorder Restless sleeper Daytime somnolence Abnormal cardiovascular stress test Atypical angina Chest pain Angina pectoris Diastolic dysfunction Edema Surgical History History of cardiac cath History of lumpectomy of left breast History of esophagogastroduodenoscopy (EGD) H/O thumb surgery H/O tubal ligation History of colonoscopy History of breast biopsy History of coronary artery bypass graft x 1 Stented coronary artery Family History Mother , at age 68 Congestive heart failure Crohn's disease Father , at age 84 Hypertension Cancer lung and colon ca Sister Diabetes Coronary artery disease Sister Cancer breast Diabetes Brother Coronary artery disease Grandmother Cancer paternal grandmother-colon ca Other No significant family history Social History (Updated 11/05/24 @ 20:11 by Ning Dietz RN) Smoking Status: Never smoker second hand exposure: Yes alcohol intake: never counseling provided: none substance use type: denies use current occupational status: retired Travel in the last 8 weeks?: None household members: spouse housing: house marital status: number of children: 4 current occupational exposures/hazards: No caffeine: Yes do you feel safe at home: Yes victim of physical abuse: No victim of emotional abuse: No victim of sexual abuse: No would you like helpful sources: No Have you lived/traveled outside [place] in past 30 days?: No Contact w/someone who lives/traveled outside [place] past 30 days?: No Exposure to someone with infectious disease in past 14 days?: No Do you have a fever (greater than 100.4 F or 38 C)?: No Have you tested positive for COVID-19?: No Exposed to someone with COVID-19 in past 14 days?: No Do you have a sore throat?: No Do you have a cough?: No Do you have any weakness?: No Do you have any diarrhea?: No Are you experiencing any unusual bleeding?: No Do you have any muscle aches/pain?: No Do you have any abdominal pain?: No Are you experiencing loss of taste or smell?: No Review of Systems Review of Systems Review of systems:: pertinent systems reviewed and negative unless documented below Constitutional Constitutional: Reports system reviewed and no additional complaints, except as documented and Reports lethargy Eyes Eyes: Reports system reviewed and no additional complaints, except as documented ENT Ears, Nose, Mouth, and Throat: Reports system reviewed and no additional complaints, except as documented *Cardiovascular Cardiovascular: Reports system reviewed and no additional complaints, except as documented, Reports chest pain, Reports chest pain at rest, Reports chest pain with activity, Reports dyspnea, Reports dyspnea on exertion, Reports leg edema and Reports orthopnea *Respiratory Respiratory: Reports system reviewed and no additional complaints, except as documented, Reports dyspnea and Reports dyspnea on exertion *Gastrointestinal Gastrointestinal: Reports system reviewed and no additional complaints, except as documented *Genitourinary Genitourinary: Reports system reviewed and no additional complaints, except as documented *Musculoskeletal Musculoskeletal: Reports system reviewed and no additional complaints, except as documented Integumentary/Breasts Skin/Breast: Reports system reviewed and no additional complaints, except as documented *Neurologic Neurologic: Reports as per HPI Psychiatric Psychiatric: Reports system reviewed and no additional complaints, except as documented Endocrine Endocrine: Reports system reviewed and no additional complaints, except as documented Hematologic/Lymphatic Hematologic/Lymphatic: Reports system reviewed and no additional complaints, except as documented Allergic/Immunologic Allergic/Immunologic: Reports system reviewed and no additional complaints, except as documented Exam Data for Last 24 hours Vital signs and Labs for Last 24 Hours: Temp Pulse Resp BP Pulse Ox O2 Del Method 98.4 F 75 16 115/51 L 96 Room Air 11/06/24 20:00 11/06/24 20:00 11/06/24 20:00 11/06/24 20:00 11/06/24 20:00 11/06/24 20:00 Laboratory Results - last 24 hr 11/05/24 21:33: Troponin I < 0.01 11/06/24 05:35: WBC 4.9, RBC 4.09 L, Hgb 11.9 L, Hct 36.0 L, MCV 88.0, MCH 29.1, MCHC 33.1, RDW 13.8, Plt Count 244, MPV 10.3, Neut % (Auto) 61.5, Lymph % (Auto) 27.9, Hays % (Auto) 8.8, Eos % (Auto) 0.8, Baso % (Auto) 0.4, Neut # (Auto) 3.0, Lymph # (Auto) 1.4, Hays # (Auto) 0.4, Eos # (Auto) 0.0, Baso # (Auto) 0.0, Sodium 135 L, Potassium 4.1, Chloride 102, Carbon Dioxide 25, Anion Gap 12.1, BUN 22 H, Creatinine 1.50 H, Estimated Creat Clear 47, Estimated GFR 34 L, Est GFR ( Amer) 41 L, Glucose 139 H D, Calcium 8.3 L, Magnesium 2.0, Total Bilirubin 0.5, AST 29, ALT 23, Alkaline Phosphatase 52, Total Protein 6.3, Albumin 3.9, Globulin 2.4, Albumin/Globulin Ratio 1.6 11/06/24 10:21: POC Glucose 164 H 11/06/24 17:27: POC Glucose 200 H I & O for Last 24 hours: Intake & Output 11/03/24 11/04/24 11/05/24 11/06/24 23:59 23:59 23:59 23:59 Intake Total 180 / 180 Output Total 0 / 0 3000 / 3000 Balance 0 / 180 -2820 / -2820 Weight 200 lb 200 lb 6.4 oz Constitutional Constitutional: no acute distress and obese *Routine HEENT Exam Head: Present normocephalic and atraumatic ENT: Present mucous membranes moist *Routine Neck Exam Neck: Present supple, full ROM and normal carotid upstroke; Absent JVD, carotid bruit or lymphadenopathy *Routine Respiratory Exam Respiratory: Present CTA bilaterally, normal respiratory effort, able to speak in complete sentences and symmetric chest movement *Routine Cardiovascular Exam Cardiovascular: Present RRR, Normal S1 and Normal S2; Absent murmur or gallop *Routine Abdominal Exam Abdominal: Present soft and normoactive bowel sounds; Absent tenderness, distended or organomegaly *Routine Extremities Exam Extremities: Present full ROM, pulses intact and normal capillary refill; Absent cyanosis, clubbing or edema *Routine Skin Exam Skin: Present intact and warm; Absent erythema *Routine Neurological Exam Neurological: Present alert, oriented X3 and CN II-XII intact; Absent sensory deficit or motor deficit Routine Psychiatric Exam Psychiatric: Present normal affect Meds Home Medications and Allergies Home Medications ?Medication ?Instructions ?Recorded ?Confirmed ?Type milnacipran 50 mg tablet (Savella) 50 mg PO BID 02/28/23 11/05/24 History nitroglycerin 0.4 mg sublingual 0.4 mg sublingual Q5-15M PRN Chest 03/09/23 11/05/24 History tablet Pain levocetirizine 5 mg tablet (Xyzal) 5 mg PO HS #90 tabs 11/07/23 11/05/24 Rx calcitriol 0.25 mcg capsule 0.25 mcg PO Q48H 12/07/23 11/05/24 History fluticasone propionate 50 1 spray intranasal DAILYP PRN 01/09/24 11/05/24 History mcg/actuation nasal ALLERGIES spray,suspension (Allergy Relief (fluticasone)) cholecalciferol (vitamin D3) 25 25 mcg PO DAILY 03/25/24 11/05/24 History mcg (1,000 unit) capsule magnesium oxide 400 mg PO DAILY Supplement 03/25/24 11/05/24 History isosorbide mononitrate 60 mg 60 mg PO BID #180 tabs 05/20/24 11/05/24 Rx tablet,extended release 24 hr bisoprolol fumarate 5 mg tablet 5 mg PO BID #60 tabs 07/31/24 11/05/24 Rx escitalopram oxalate 20 mg tablet 20 mg PO DAILY 08/22/24 11/05/24 History ranolazine 1,000 mg 1,000 mg PO BID 08/22/24 11/05/24 History tablet,extended release,12 hr azelastine 137 mcg (0.1 %) nasal 1 spray intranasal BIDP PRN 09/05/24 11/05/24 History spray Allergy Symptoms insulin human U-100 NPH-regulr 35 unit SQ BID 09/05/24 11/05/24 History 70-30 mix 100 unit/mL subcutaneous susp (Novolin 70/30 U-100 Insulin) empagliflozin 10 mg tablet 10 mg PO DAILY Diabetes #90 tabs 09/09/24 11/05/24 Rx (Jardiance) furosemide 20 mg tablet 40 mg (2 x 20 mg) PO Q48H #30 tabs 09/11/24 11/05/24 Rx clopidogrel 75 mg tablet 75 mg PO DAILY #90 tabs 09/13/24 11/05/24 Rx pregabalin 25 mg capsule 25 mg PO HS #30 caps 09/19/24 11/05/24 Rx estradiol 0.01% (0.1 mg/gram) 1 appful vaginal DIRECTED #42.5 09/23/24 11/05/24 Rx vaginal cream grams oxybutynin chloride 10 mg 10 mg PO DAILY #90 tabs 09/23/24 11/05/24 Rx tablet,extended release 24 hr flash glucose sensor (FreeStyle #6 ea 09/30/24 11/05/24 Rx Mounika 14 Day Sensor kit) hydralazine 10 mg tablet 10 mg PO TID #90 tabs 10/23/24 11/05/24 Rx evolocumab 140 mg/mL subcutaneous 140 mg SQ DIRECTED 11/05/24 11/06/24 History pen injector (Conchita Muñoz) ezetimibe 10 mg tablet 10 mg PO DAILY 11/05/24 11/05/24 History pantoprazole 40 mg tablet,delayed 40 mg PO DAILY 11/05/24 11/05/24 History release New Prescriptions to Start Prescriptions: Allergies Allergy/AdvReac Type Severity Reaction Status Date / Time Rzqwwdl-KMI-LfH Reductase Allergy Severe Unknown Verified 10/28/24 13:44 Inhibitor (Rvjkxyw-Smw-Nnj allergy Reductase Inhibitor) reaction Penicillins Allergy Intermediate I-RASH Verified 10/28/24 13:44 losartan Allergy Mild Verified 10/28/24 13:44 cefuroxime (From Ceftin) Allergy Unknown Verified 10/28/24 13:44 allergy reaction hydrocodone AdvReac Verified 10/28/24 13:44 Assessment and Plan *Assessment and plan (1) Angina pectoris: Status: Acute Category: Medical Code(s): I20.9 - Angina pectoris, unspecified (2) Elevated left ventricular end-diastolic pressure (LVEDP): Status: Resolved Category: Medical Code(s): R94.30 - Abnormal result of cardiovascular function study, unspecified (3) CAD (coronary artery disease): Status: Acute Qualifiers: Coronary Disease-Associated Artery/Lesion type: ruby artery [place] vs. transplanted heart: ruby heart Associated angina: with unspecified form of angina Qualified Code(s): I25.119 - Atherosclerotic heart disease of ruby coronary artery with unspecified angina pectoris Category: Medical Code(s): I25.10 - Atherosclerotic heart disease of ruby coronary artery without angina pectoris (4) HLD (hyperlipidemia): Status: Chronic Qualifiers: Hyperlipidemia type: mixed hyperlipidemia Qualified Code(s): E78.2 - Mixed hyperlipidemia Category: Medical Code(s): E78.5 - Hyperlipidemia, unspecified (5) CKD (chronic kidney disease) stage 3, GFR 30-59 ml/min: Problem Comment: Established with [facility], Dr. Stanford in [place]. 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 The patient presented to the emergency department with complaints of chest pain. The patient has a past medical history of extensive coronary artery disease. She was to the hospital due to her angina. She was ruled out for AR. Patient had previous cardiac catheterization in August 2024 which showed patent coronary artery disease and an elevated LVEDP for which she would benefit from better diuresis. Will start the patient on Lasix 60 mg IV twice daily for better diuresis. 2. Echocardiogram shows that her ejection fraction is normal and no significant change from previous echocardiograms. 3. As mentioned above she did rule out for an AR. No plans for invasive left cardiac catheterization at this time unless she has persistent angina. 4. Coronary artery disease-stable. Continue Plavix, isosorbide and Ranexa. 5. Her blood pressure is well-controlled. Continue hydralazine and bisoprolol. 6. Her LDL goal is less than 55. Her LDL is 38. Continue Repatha and Zetia. 7. The patient has known HFpEF. She is having acute on chronic HFpEF. Continue Jardiance. 8. The patient does have chronic kidney disease. Her creatinine is stable at 1.5. 9. Further recommendations will be made pending the patient's response to treatments. Thank you for the opportunity to help participate in the care of this patient. All recommendations and orders are per Dr. Wilkins.
[2024-11-06] MEDS: PT OWN MED *BISOPROLOL 5 MG TAB 1 EACH PO (21:24)
[2024-11-06] MEDS: RANOLAZINE 1000 MG 1 EACH PO (21:24)
[2024-11-06] MEDS: PREGABALIN 25MG CAPSULE 25 MG PO (21:24)
[2024-11-06] MEDS: LIDOCAINE 5% TRANSDERMAL PATCH 1 EACH TD (21:25)
[2024-11-06] MEDS: PT OWN MED *PANTOPRAZOLE DR 40 MG TAB 1 EACH PO (21:25)
[2024-11-06] MEDS: humaLOG MIX 75/25 3ML FLEXPEN 35 UNIT SUBCUT (21:38)
[2024-11-06 21:39] LABS: POC Glucose,Bedside 214 (70-110)
[2024-11-07] VITALS: BP 105/76; PULSE 68; PULSE 70; RESP 16; TEMP 36.6; O2SAT 95
--- NOTE | 2024-11-07 03:50 | PC.NURSE ---
Patient is alert and oriented x4. She was observed to have eyes closed, respirations even and unlabored on room air, and no apparent distress throughout the majority of the night. Upon initial assessment, the patient was complaining of moderate chest pain that was primarily expressed in the left quadrant of her chest. A lidocaine patch was applied to this affected area. Upon follow-up assessment, the patient stated that the lidocaine patch had helped relieve some of her chest pain. This morning, the patient denied any worsening chest pain, with the ease still presenting. Other scheduled medications were administered per AUG. Auscultation of her heart, lungs, and bowels were within normal findings. Normal sinus rhythm on telemetry. Patient ambulates with standby assistance as needed. At this time, the patient is resting in bed without any further complaints. No new needs thus far. Call light within reach. Home medications remain locked in the [facility].
[2024-11-07 04:00] VITALS: BP 109/47; PULSE 70; PULSE 71; RESP 16; TEMP 36.8; O2SAT 95; BMI 36.3
[2024-11-07 06:37] LABS: Basophils % 0.6 % (0.1-2.0); Eosinophils # 0.1 Kmm3 (0.0-0.4); Hematocrit 36.9 % (37.0-47.0); Hemoglobin 12.2 g/dL (12.2-16.2); Immature Granulocytes # 0.06 10^3uL; Immature Granulocytes % 1.2 %; Lymphocytes # 2.1 K/mm3 (0.7-4.5); Lymphocytes % 41.4 % (10-50); Mean Corpuscular HGB Conc 33.1 g/dL (31.8-35.4); Mean Corpuscular Hemoglobin 29.1 pg (27.0-31.2); Mean Corpuscular Volume 88.1 fl (81-99); Mean Platelet Volume 10.3 fl (7.4-10.4); Monocytes # 0.7 K/mm3 (0.1-1.0); Monocytes % 13.1 % (1.7-9.3); Neutrophils # 2.1 K/mm3 (1.8-7.8); Neutrophils % 42.7 % (37.0-80.0); Nucleated Red Blood Cells # 0 10^3/uL; Nucleated Red Blood Cells % 0 %; Platelet Count 233 K/mm3 (142-424); Red Blood Count 4.19 M/mm3 (4.20-5.40); Red Cell Distribution Width-SD 45.2 fL
[2024-11-07] MEDS: DEXTROSE 50% 50ML SYRINGE (CRASH CART) 50 ML IVP (06:40)
[2024-11-07 06:44] LABS: POC Glucose,Bedside 69 (70-110)
[2024-11-07 06:55] LABS: Anion Gap 11.9 mEq/L (5-15); Blood Urea Nitrogen 30 mg/dl (7-17); Carbon Dioxide 31 mmol/L (22.0-30.0); Chloride 98 mmol/L (98-107); Potassium 3.9 mmoL/L (3.5-5.1); Sodium 137 mmol/L (136-145)
[2024-11-07 06:56] LABS: Alanine Aminotransferase 26 U/L (12-78); Albumin Level 4.1 g/dl (3.5-5.0); Albumin/Globulin Ratio 1.6 (1.1-1.8); Alkaline Phosphatase 50 U/L (38-126); Aspartate Amino Transferase 37 U/L (14-36); Bilirubin,Total 0.5 mg/dl (0.2-1.3); Calcium 8.4 mg/dl (8.4-10.2); Creatinine Clearance Estimated 35 mL/min (50-200); Estimated Glomerular Filt Rate 24 ml/min (>60); GFR (African American) 29 ML/MIN (>60); Globulin 2.5 g/dL (1.3-3.2); Glucose 73 mg/dl (74-100); Magnesium 2.1 mg/dl (1.6-2.3); Total Protein,Serum 6.6 g/dl (6.3-8.2)
--- NOTE | 2024-11-07 06:56 | PC.NURSE ---
Patient's glucose reading, taken at 06:19 this morning, was 69. Tameka Betts MD was notified of the low glucose reading, and I requested an intervention to increase her glucose level due to her current NPO status. An order for Dextrose 50% in Water 50 mL IVP injection was verbally obtained from him, faxed to the overnight pharmacy, and later administered per AUG at 06:40. Glucose reading was rechecked after 15 minutes post-Dextrose administration. Reading at 06:57 was 229.
[2024-11-07 07:07] LABS: POC Glucose,Bedside 229 (70-110)
[2024-11-07 07:56] VITALS: BP 109/53; PULSE 67; RESP 16; TEMP 36.6; O2SAT 96
[2024-11-07 08:00] VITALS: PULSE 70
[2024-11-07] MEDS: EZETIMIBE 10 MG 1 EACH PO (08:24)
[2024-11-07] MEDS: PT OWN MED *JARDIANCE 10 MG TAB 1 EACH PO (08:24)
[2024-11-07] MEDS: MAGNESIUM OXIDE 400MG TABLET 400 MG PO (08:24)
[2024-11-07] MEDS: PT OWN MED *CLOPIDOGREL 75 MG TAB 1 EACH PO (08:25)
[2024-11-07] MEDS: PT OWN MED *BISOPROLOL 5 MG TAB 1 EACH PO (08:26)
[2024-11-07] MEDS: RANOLAZINE 1000 MG 1 EACH PO (08:27)
[2024-11-07 08:38] LABS: POC Glucose,Bedside 146 (70-110)
[2024-11-07 11:22] VITALS: BP 118/54; PULSE 72; RESP 17; TEMP 36.6; O2SAT 98
[2024-11-07 12:00] VITALS: PULSE 70
[2024-11-07 12:57] LABS: Chloride 97 mmol/L (98-107); Potassium 4.1 mmoL/L (3.5-5.1); Sodium 134 mmol/L (136-145)
[2024-11-07 13:00] LABS: Anion Gap 14.1 mEq/L (5-15); Blood Urea Nitrogen 28 mg/dl (7-17); Carbon Dioxide 27 mmol/L (22.0-30.0); Creatinine Clearance Estimated 35 mL/min (50-200); Estimated Glomerular Filt Rate 24 ml/min (>60); GFR (African American) 29 ML/MIN (>60)
[2024-11-07 13:01] LABS: Calcium 8.6 mg/dl (8.4-10.2); Glucose 210 mg/dl (74-100)
--- NOTE | 2024-11-07 13:27 | EXP.DC.SUM ---
General Admission date:: 11/05/24 Discharge date: 11/07/24 HPI HPI HPI: 74-year-old female presents emergency department with chest pain that is substernal nonradiating for 36 hours duration. Patient states that yesterday morning (11/04/2024) she started having substernal heaviness radiating to her back. Rated 8 out of 10. She took 2 nitroglycerin which did relieve the pain. However it did return and stayed consistent throughout the day until today. She again took 3 nitroglycerin today every 5 minutes and continued to have chest pain so came to the emergency department for evaluation. She also endorses worsening shortness of breath and also orthopnea. She has minimal lower extremity edema. She has persistent thirst and has been drinking excessively. denies any fever chills, admits to shortness of breath, with exertion, admits to nausea no abdominal pain, admits to chronic constipation, no diarrhea, no melena no hematochezia no hematemesis or hemoptysis, no urinary type symptomatology An EKG troponins were negative x 2. EKG shows normal sinus rhythm with no ST deviations Has significant revascularization history including bypass surgery and multiple PCI. History independently obtained. Prior data and records reviewed. Diagnostic and radiographic findings independently interpreted. Hospital Course Hospital Course Hospital Course: 74-year-old female multiple cardiovascular risk factors extensive coronary revascularization CABG and multiple PCI. Comes in with chest pain, unremarkable EKG with no ST deviations and negative troponin delta. Has a history of diastolic dysfunction and clinically seems hypervolemic. Strong diuretics. Had improvement. Cardiology consulted to assist with care. Previous cath in August which showed patent coronary arteries. Adjustments made to medications. Chest pain improved. Given her improvement, stable discharge home with close outpatient follow-up. Problems addressed as follows: Chest pain Hypertension CAD HFpEF - Recent heart cath demonstrating no significant epicardial coronary disease. With normal EKG and negative troponins it is unlikely within 2 months that she would have developed significant stenosis. Cardiology consulted. Recommend adjustments to medications. Will defer invasive angiography at this time. Patient presented with persistent chest pain. He has extensive history of coronary artery disease. Has had multiple heart caths in the past. Most recent in August which showed patent coronary artery disease with elevated left ventricular end-diastolic pressures. Continue increased diuresis. Treated with Lasix 60 mg IV twice daily during admission. Echo this admission with normal EF and no significant change from previous exam. Coronary artery disease stable. Continue Plavix 75 mg daily, isosorbide 60 mg p.o. twice daily, Ranexa 1000 mg twice daily, bisoprolol 5 mg twice daily, Jardiance 10 mg daily, Zetia 10 mg daily, Repatha injections every 2 weeks. Transition to Lasix 40 mg p.o. daily at discharge. Overall doing well, follow-up with cardiology as an outpatient for further management. DM: A1c 6.8 two months ago. Morning glucoses less than 150. Treated with sliding scale insulin and fingersticks during admission. Resume home regimen at discharge Total time spent on discharge 36 minutes in counseling, documentation, chart review, and direct care with patient. Exam Data for Last 24 hours Vital signs and Labs for Last 24 Hours: Temp Pulse Resp BP Pulse Ox O2 Del Method 98.4 F 67 18 122/50 L 97 Room Air 11/06/24 08:00 11/06/24 08:00 11/06/24 08:00 11/06/24 08:00 11/06/24 08:00 11/06/24 08:00 Laboratory Results - last 24 hr 11/05/24 14:45: WBC 6.0, RBC 4.30, Hgb 12.5, Hct 38.1, MCV 88.6, MCH 29.1, MCHC 32.8, RDW 13.8, Plt Count 263, MPV 10.0, Neut % (Auto) 66.3, Lymph % (Auto) 23.8, Nye % (Auto) 7.6, Eos % (Auto) 0.8, Baso % (Auto) 0.5, Neut # (Auto) 4.0, Lymph # (Auto) 1.4, Nye # (Auto) 0.5, Eos # (Auto) 0.1, Baso # (Auto) 0.0, PT 11.4, INR 1.03, D-Dimer 0.66 H, Sodium 137, Potassium 4.4, Chloride 104, Carbon Dioxide 26, Anion Gap 11.4, BUN 22 H, Creatinine 1.40 H, Estimated Creat Clear 53, Estimated GFR 37 L, Est GFR ( Amer) 44 L, Glucose 87, Calcium 8.6, Magnesium 2.1, Total Bilirubin 0.5, AST 36, ALT 26, Alkaline Phosphatase 46, Troponin I < 0.01, NT-Pro-B Natriuret Pep 880 H, Total Protein 6.7, Albumin 4.2, Globulin 2.5, Albumin/Globulin Ratio 1.7, Lipase 51 11/05/24 16:43: Troponin I < 0.01 11/05/24 21:33: Troponin I < 0.01 11/06/24 05:35: WBC 4.9, RBC 4.09 L, Hgb 11.9 L, Hct 36.0 L, MCV 88.0, MCH 29.1, MCHC 33.1, RDW 13.8, Plt Count 244, MPV 10.3, Neut % (Auto) 61.5, Lymph % (Auto) 27.9, Nye % (Auto) 8.8, Eos % (Auto) 0.8, Baso % (Auto) 0.4, Neut # (Auto) 3.0, Lymph # (Auto) 1.4, Nye # (Auto) 0.4, Eos # (Auto) 0.0, Baso # (Auto) 0.0, Sodium 135 L, Potassium 4.1, Chloride 102, Carbon Dioxide 25, Anion Gap 12.1, BUN 22 H, Creatinine 1.50 H, Estimated Creat Clear 47, Estimated GFR 34 L, Est GFR ( Amer) 41 L, Glucose 139 H D, Calcium 8.3 L, Magnesium 2.0, Total Bilirubin 0.5, AST 29, ALT 23, Alkaline Phosphatase 52, Total Protein 6.3, Albumin 3.9, Globulin 2.4, Albumin/Globulin Ratio 1.6 I & O for Last 24 hours: Intake & Output 11/03/24 11/04/24 11/05/24 11/06/24 23:59 23:59 23:59 23:59 Intake Total 180 / 180 Output Total 0 / 0 1600 / 1600 Balance 0 / 180 -1420 / -1420 Weight 90.718 kg 90.9 kg Results Data Completed and Pending Labs on day of discharge: Labs from last 24 hours 11/06/24 11/05/24 11/05/24 05:35 21:33 16:43 WBC 4.9 RBC 4.09 L Hgb 11.9 L Hct 36.0 L MCV 88.0 MCH 29.1 MCHC 33.1 RDW 13.8 Plt Count 244 MPV 10.3 Neut % (Auto) 61.5 Lymph % (Auto) 27.9 Nye % (Auto) 8.8 Eos % (Auto) 0.8 Baso % (Auto) 0.4 Neut # (Auto) 3.0 Lymph # (Auto) 1.4 Nye # (Auto) 0.4 Eos # (Auto) 0.0 Baso # (Auto) 0.0 PT INR D-Dimer Sodium 135 L Potassium 4.1 Chloride 102 Carbon Dioxide 25 Anion Gap 12.1 BUN 22 H Creatinine 1.50 H Estimated Creat Clear 47 Estimated GFR 34 L Est GFR ( Amer) 41 L Glucose 139 H D Calcium 8.3 L Magnesium 2.0 Total Bilirubin 0.5 AST 29 ALT 23 Alkaline Phosphatase 52 Troponin I < 0.01 < 0.01 NT-Pro-B Natriuret Pep Total Protein 6.3 Albumin 3.9 Globulin 2.4 Albumin/Globulin Ratio 1.6 Lipase 11/05/24 14:45 WBC 6.0 RBC 4.30 Hgb 12.5 Hct 38.1 MCV 88.6 MCH 29.1 MCHC 32.8 RDW 13.8 Plt Count 263 MPV 10.0 Neut % (Auto) 66.3 Lymph % (Auto) 23.8 Nye % (Auto) 7.6 Eos % (Auto) 0.8 Baso % (Auto) 0.5 Neut # (Auto) 4.0 Lymph # (Auto) 1.4 Nye # (Auto) 0.5 Eos # (Auto) 0.1 Baso # (Auto) 0.0 PT 11.4 INR 1.03 D-Dimer 0.66 H Sodium 137 Potassium 4.4 Chloride 104 Carbon Dioxide 26 Anion Gap 11.4 BUN 22 H Creatinine 1.40 H Estimated Creat Clear 53 Estimated GFR 37 L Est GFR ( Amer) 44 L Glucose 87 Calcium 8.6 Magnesium 2.1 Total Bilirubin 0.5 AST 36 ALT 26 Alkaline Phosphatase 46 Troponin I < 0.01 NT-Pro-B Natriuret Pep 880 H Total Protein 6.7 Albumin 4.2 Globulin 2.5 Albumin/Globulin Ratio 1.7 Lipase 51 DS: Diagnosis Discharge Diagnosis (1) CAD (coronary artery disease): Status: Acute Code(s): I25.10 - Atherosclerotic heart disease of [place] coronary artery without angina pectoris Qualifiers: Associated angina: with unspecified form of angina Coronary Disease-Associated Artery/Lesion type: [place] artery [place] vs. transplanted heart: [place] heart Qualified Code(s): I25.119 - Atherosclerotic heart disease of [place] coronary artery with unspecified angina pectoris (2) Uncontrolled hypertension: Status: Acute Code(s): I10 - Essential (primary) hypertension (3) Obesity, Class II, BMI 35-39.9: Status: Acute Code(s): E66.812 - Obesity, class 2 (4) Fatty liver: Status: Acute Code(s): K76.0 - Fatty (change of) liver, not elsewhere classified (5) DM type 2 (diabetes mellitus, type 2): Status: Chronic Code(s): E11.9 - Type 2 diabetes mellitus without complications Qualifiers: Diabetes mellitus complication status: with other specified complication Diabetes mellitus halfway insulin use: unspecified halfway insulin use status Qualified Code(s): E11.69 - Type 2 diabetes mellitus with other specified complication (6) HLD (hyperlipidemia): Status: Chronic Code(s): E78.5 - Hyperlipidemia, unspecified Qualifiers: Hyperlipidemia type: mixed hyperlipidemia Qualified Code(s): E78.2 - Mixed hyperlipidemia (7) History of coronary artery bypass graft x 1: Status: Chronic Code(s): Z95.1 - Presence of aortocoronary bypass graft Problem details: 05/2019, Dr. Italo Das Home Medications and Allergies Home Medications ?Medication ?Instructions ?Recorded ?Confirmed ?Type milnacipran 50 mg tablet (Savella) 50 mg PO BID 02/28/23 11/05/24 History nitroglycerin 0.4 mg sublingual 0.4 mg sublingual Q5-15M PRN Chest 03/09/23 11/05/24 History tablet Pain levocetirizine 5 mg tablet (Xyzal) 5 mg PO HS #90 tabs 11/07/23 11/05/24 Rx calcitriol 0.25 mcg capsule 0.25 mcg PO Q48H 12/07/23 11/05/24 History fluticasone propionate 50 1 spray intranasal DAILYP PRN 01/09/24 11/05/24 History mcg/actuation nasal ALLERGIES spray,suspension (Allergy Relief (fluticasone)) cholecalciferol (vitamin D3) 25 25 mcg PO DAILY 03/25/24 11/05/24 History mcg (1,000 unit) capsule magnesium oxide 400 mg PO DAILY Supplement 03/25/24 11/05/24 History isosorbide mononitrate 60 mg 60 mg PO BID #180 tabs 05/20/24 11/05/24 Rx tablet,extended release 24 hr bisoprolol fumarate 5 mg tablet 5 mg PO BID #60 tabs 07/31/24 11/05/24 Rx escitalopram oxalate 20 mg tablet 20 mg PO DAILY 08/22/24 11/05/24 History ranolazine 1,000 mg 1,000 mg PO BID 08/22/24 11/05/24 History tablet,extended release,12 hr azelastine 137 mcg (0.1 %) nasal 1 spray intranasal BIDP PRN 09/05/24 11/05/24 History spray Allergy Symptoms insulin human U-100 NPH-regulr 35 unit SQ BID 09/05/24 11/05/24 History 70-30 mix 100 unit/mL subcutaneous susp (Novolin 70/30 U-100 Insulin) empagliflozin 10 mg tablet 10 mg PO DAILY Diabetes #90 tabs 09/09/24 11/05/24 Rx (Jardiance) clopidogrel 75 mg tablet 75 mg PO DAILY #90 tabs 09/13/24 11/05/24 Rx pregabalin 25 mg capsule 25 mg PO HS #30 caps 09/19/24 11/05/24 Rx estradiol 0.01% (0.1 mg/gram) 1 appful vaginal DIRECTED #42.5 09/23/24 11/05/24 Rx vaginal cream grams oxybutynin chloride 10 mg 10 mg PO DAILY #90 tabs 09/23/24 11/05/24 Rx tablet,extended release 24 hr flash glucose sensor (FreeStyle #6 ea 09/30/24 11/05/24 Rx Mounika 14 Day Sensor kit) evolocumab 140 mg/mL subcutaneous 140 mg SQ DIRECTED 11/05/24 11/06/24 History pen injector (Conchita Muñoz) ezetimibe 10 mg tablet 10 mg PO DAILY 11/05/24 11/05/24 History pantoprazole 40 mg tablet,delayed 40 mg PO DAILY 11/05/24 11/05/24 History release furosemide 20 mg tablet 40 mg (2 x 20 mg) PO DAILY 30 days 11/07/24 Rx #60 tabs New Prescriptions to Start Prescriptions: furosemide Jose F Patricio Allergies Allergy/AdvReac Type Severity Reaction Status Date / Time [id number]-CZO-XeG Reductase Allergy Severe Unknown Verified 10/28/24 13:44 Inhibitor (Abwgsfq-Iqj-Jvg allergy Reductase Inhibitor) reaction Penicillins Allergy Intermediate I-RASH Verified 10/28/24 13:44 losartan Allergy Mild Verified 10/28/24 13:44 cefuroxime (From Ceftin) Allergy Unknown Verified 10/28/24 13:44 allergy reaction hydrocodone AdvReac Verified 10/28/24 13:44 Discharge Plan Disposition Patient Disposition: Home, Self-Care Condition: Good Follow up Plan Follow up with: Santa Pena APRN [Nurse Practitioner, Cardiology] - 11/13/24 10:45 am Maribel Ambriz APRN [Primary Care Provider, Family Practice] - 11/18/24 1:30 pm Prescriptions/Medication Reconciliation: Continued calcitriol 0.25 mcg capsule 0.25 mcg PO Q48H fluticasone propionate [Allergy Relief (fluticasone)] 50 mcg/actuation spray,suspension 1 spray intranasal DAILYP PRN (Reason: ALLERGIES) cholecalciferol (vitamin D3) 25 mcg (1,000 unit) capsule 25 mcg PO DAILY escitalopram oxalate 20 mg tablet 20 mg PO DAILY ranolazine 1,000 mg tablet extended release 12 hr 1,000 mg PO BID nitroglycerin 0.4 mg tablet, sublingual 0.4 mg sublingual Q5-15M PRN (Reason: Chest Pain) Patient Comments: DISSOLVE ONE TABLET UNDER THE TONGUE EVERY 5 MINUTES NEEDED FOR CHEST PAIN. DO NOT EXCEED A TOTAL OF 3 DOSES IN 15 MINUTES estradiol 0.01 % (0.1 mg/gram) cream 1 appful VAGINAL DIRECTED Qty: 42.5 3RF Rx Instructions: Using finger technique applied daily for 2 weeks and then thereafter 3 times weekly oxybutynin chloride 10 mg tablet extended release 24hr 10 mg PO DAILY Qty: 90 3RF levocetirizine [Xyzal] 5 mg tablet 5 mg PO HS Qty: 90 3RF isosorbide mononitrate 60 mg tablet extended release 24 hr 60 mg PO BID Qty: 180 3RF bisoprolol fumarate 5 mg tablet 5 mg PO BID Qty: 60 4RF Jardiance 10 mg tablet 10 mg PO DAILY Qty: 90 3RF clopidogrel 75 mg tablet 75 mg PO DAILY Qty: 90 1RF pregabalin 25 mg capsule 25 mg PO HS Qty: 30 2RF (DME) FreeStyle Mounika 14 Day Sensor Kit See Rx Instructions .ROUTE .COMPLEX Qty: 6 3RF Dose Instruction: APPLY 1 SENSOR UNIT SUBCUTANEOUSLY AND CHANGE UNIT EVERY 14 DAYS Rx Instructions: APPLY 1 SENSOR UNIT SUBCUTANEOUSLY AND CHANGE UNIT EVERY 14 DAYS Savella 50 mg Tablet 50 mg PO BID Patient Comments: RECEIVES SUPPLY FROM [employer] 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 things 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 bake magnesium oxide 400 mg magnesium tablet 400 mg PO DAILY pantoprazole 40 mg tablet,delayed release (DR/EC) 40 mg PO DAILY Rx Instructions: Take 1 tablet by mouth once daily ezetimibe 10 mg tablet 10 mg PO DAILY Repatha SureClick 140 mg/mL pen injector 140 mg SQ DIRECTED Rx Instructions: INJECT 1 SYRINGE SUBCUTANOUSLY EVERY 2 WEEKS Novolin 70/30 U-100 Insulin 100 unit/mL (70-30) suspension 35 unit SQ BID azelastine 137 mcg (0.1 %) spray,non-aerosol 1 spray intranasal BIDP PRN (Reason: Allergy Symptoms) Rx Instructions: administer into each nostril Changed furosemide 20 mg tablet 40 mg PO DAILY 30 Days Qty: 60 0RF Discontinued hydralazine 10 mg tablet 10 mg PO TID Qty: 90 3RF Problem Reconciliation Problems Reviewed?: Yes Patient Discharge Instructions ACTIVITY: Continue current activity DIET: continue same diet Patient Instructions: Angina (Alternative Therapy), Angina Print Language: Bengali Providers Primary Care Provider: Maribel Ambriz Admit Provider: Jose F Patricio Attending Provider: Jose F Patricio
--- NOTE | 2024-11-07 14:35 | EXP.CARD.PN ---
Subjective Subjective Date: 11/07/24 Time: 09:30 Principal diagnosis: HFpEF Interval history: This is a 74-year-old female who presented to the hospital with complaints of chest pain. She ruled out for an OH. She was treated with IV diuretics yesterday and had improvement in her symptoms. Her renal function did elevate with diuresis but her shortness of breath and chest pressure have improved. She states that she is still having some soreness in the center of her chest but it is much better than it was prior to coming into the hospital. She states her shortness of breath is essentially resolved. She denies any lower extremity edema. She denies any fever, chills, nausea, vomiting or diarrhea Exam Data for Last 24 hours Vital signs and Labs for Last 24 Hours: Temp Pulse Resp BP Pulse Ox O2 Del Method 97.9 F 72 17 118/54 L 98 Room Air 11/07/24 11:22 11/07/24 11:22 11/07/24 11:22 11/07/24 11:22 11/07/24 11:22 11/07/24 11:22 Laboratory Results - last 24 hr 11/06/24 17:27: POC Glucose 200 H 11/06/24 21:31: POC Glucose 214 H 11/07/24 05:45: WBC 5.0, RBC 4.19 L, Hgb 12.2, Hct 36.9 L, MCV 88.1, MCH 29.1, MCHC 33.1, RDW 14.0, Plt Count 233, MPV 10.3, Neut % (Auto) 42.7, Lymph % (Auto) 41.4, [place] % (Auto) 13.1 H, Eos % (Auto) 1.0, Baso % (Auto) 0.6, Neut # (Auto) 2.1, Lymph # (Auto) 2.1, [place] # (Auto) 0.7, Eos # (Auto) 0.1, Baso # (Auto) 0.0, Sodium 137, Potassium 3.9, Chloride 98, Carbon Dioxide 31 H, Anion Gap 11.9, BUN 30 H D, Creatinine 2.00 H D, Estimated Creat Clear 35, Estimated GFR 24 L, Est GFR ( Amer) 29 L D, Glucose 73 L, Calcium 8.4, Magnesium 2.1, Total Bilirubin 0.5, AST 37 H D, ALT 26, Alkaline Phosphatase 50, Total Protein 6.6, Albumin 4.1, Globulin 2.5, Albumin/Globulin Ratio 1.6 11/07/24 06:19: POC Glucose 69 L 11/07/24 06:57: POC Glucose 229 H 11/07/24 08:20: POC Glucose 146 H 11/07/24 12:46: Sodium 134 L, Potassium 4.1, Chloride 97 L, Carbon Dioxide 27, Anion Gap 14.1, BUN 28 H, Creatinine 2.00 H, Estimated Creat Clear 35, Estimated GFR 24 L, Est GFR ( Amer) 29 L, Glucose 210 H D, Calcium 8.6 I & O for Last 24 hours: Intake & Output 11/04/24 11/05/24 11/06/24 11/07/24 23:59 23:59 23:59 23:59 Intake Total 180 / 430 520 / 520 Output Total 0 / 0 3200 / 3200 200 / 200 Balance 0 / 180 -3020 / -2770 320 / 320 Weight 200 lb 200 lb 6.4 oz 197 lb 6.4 oz Constitutional Constitutional: no acute distress and obese *Routine HEENT Exam Head: Present normocephalic and atraumatic ENT: Present mucous membranes moist *Routine Neck Exam Neck: Present supple, full ROM and normal carotid upstroke; Absent JVD, carotid bruit or lymphadenopathy *Routine Respiratory Exam Respiratory: Present CTA bilaterally, normal respiratory effort, able to speak in complete sentences and symmetric chest movement *Routine Cardiovascular Exam Cardiovascular: Present RRR, Normal S1 and Normal S2; Absent murmur or gallop *Routine Abdominal Exam Abdominal: Present soft and normoactive bowel sounds; Absent tenderness, distended or organomegaly *Routine Extremities Exam Extremities: Present full ROM, pulses intact and normal capillary refill; Absent cyanosis, clubbing or edema *Routine Skin Exam Skin: Present intact and warm; Absent erythema *Routine Neurological Exam Neurological: Present alert, oriented X3 and CN II-XII intact; Absent sensory deficit or motor deficit Routine Psychiatric Exam Psychiatric: Present normal affect Progress Note: A&P Assessment and plan (1) CAD (coronary artery disease): Status: Acute (2) Obesity, Class II, BMI 35-39.9: Status: Acute (3) Fatty liver: Status: Acute (4) DM type 2 (diabetes mellitus, type 2): Status: Chronic (5) HLD (hyperlipidemia): Status: Chronic (6) History of coronary artery bypass graft x 1: Problem details: 05/2019, Dr. Puckett Status: Chronic (7) Angina pectoris: Status: Acute (8) CKD (chronic kidney disease) stage 3, GFR 30-59 ml/min: Problem details: [facility], Dr. Stanford in [place]. Status: Chronic (9) Hypertension: Status: Chronic (10) (HFpEF) heart failure with preserved ejection fraction: Status: Acute Assessment and Plan Assessment and Plan for All Diagnoses:: Plan: 1. The patient presented to the emergency department with complaints of chest pain. The patient has a past medical history of extensive coronary artery disease. She was to the hospital due to her angina. She was ruled out for OH. Patient had previous cardiac catheterization in August 2024 which showed patent coronary artery disease and an elevated LVEDP for which she would benefit from better diuresis. The patient was given IV diuretics overnight and her symptoms have improved. Her angina is most likely from her elevated LVEDP. We do recommend her being on a daily Lasix instead of taking it every other day to keep her LVEDP lower. 2. Echocardiogram shows that her ejection fraction is normal and no significant change from previous echocardiograms. 3. As mentioned above she did rule out for an OH. No plans for invasive left cardiac catheterization at this time unless she has persistent angina. 4. Coronary artery disease-stable. Continue Plavix, isosorbide and Ranexa. 5. Her blood pressure is well-controlled. Continue hydralazine and bisoprolol. 6. Her LDL goal is less than 55. Her LDL is 38. Continue Repatha and Zetia. 7. The patient has known HFpEF. She is having acute on chronic HFpEF. Continue Jardiance. 8. The patient does have chronic kidney disease. Her creatinine is up to 2.0. At 1 PM her renal function remained the same. The patient will need to be kept prerenal to keep her out of pulmonary edema due to her HFpEF. 9. No further recommendations at this time from a cardiac standpoint. The patient is stable for discharge home today with follow-up in 1 week on an outpatient basis. 10. The patient will need to be discharged on the following cardiac medications: Bisoprolol 5 mg twice daily, Plavix 75 mg daily, Jardiance 10 mg daily, Zetia 10 mg daily, Repatha injections every 2 weeks, Lasix 40 mg p.o. daily, Imdur 60 mg p.o. twice daily, Protonix 40 mg daily, Ranexa 1000 mg twice daily. Thank you for the opportunity to help participate in the care of this patient. All recommendations and orders are per Dr. Wilkins.
[2024-11-08 16:59] LABS: POC Glucose,Bedside 145 (70-110)
[2024-11-08 17:35] LABS: POC Glucose,Bedside 120 (70-110)
--- NOTE | 2024-11-11 13:58 | CARE MANAGER ---
Patient states she is doing better. She is aware of follow up appointments and medications.
== END 2024-11-07 14:50 | disposition home or self-care (01) ==
LOC: ER 17:02 → 2ND 17:14
PROVIDERS: Nurse Practitioner Family; Physician Assistant; Admitting Provider Internal Medicine Adolescent Medicine; Emergency Provider Emergency Medicine; PCP Nurse Practitioner Family; Visit Provider Internal Medicine Adolescent Medicine
DX: E11.22 Type 2 diabetes mellitus with diabetic chronic kidney disease; I13.0 Hypertensive heart and chronic kidney disease with heart failure and stage 1 through stage 4 chronic kidney disease, or unspecified chronic kidney disease; I50.30 Unspecified diastolic (congestive) heart failure; N18.30 Chronic kidney disease, stage 3 unspecified; Z79.4 Long term (current) use of insulin; E66.812 Obesity, class 2; Z68.35 Body mass index [BMI] 35.0-35.9, adult; K76.0 Fatty (change of) liver, not elsewhere classified; E78.2 Mixed hyperlipidemia; E11.42 Type 2 diabetes mellitus with diabetic polyneuropathy; R94.30 Abnormal result of cardiovascular function study, unspecified; Z95.1 Presence of aortocoronary bypass graft; Z79.61 Long term (current) use of immunomodulator; Z79.83 Long term (current) use of bisphosphonates; Z79.02 Long term (current) use of antithrombotics/antiplatelets; Z79.899 Other long term (current) drug therapy; Z88.0 Allergy status to penicillin; Z88.8 Allergy status to other drugs, medicaments and biological substances; Z88.5 Allergy status to narcotic agent; Z82.49 Family history of ischemic heart disease and other diseases of the circulatory system; N17.9 Acute kidney failure, unspecified; I25.118 Atherosclerotic heart disease of native coronary artery with other forms of angina pectoris
CPT/HCPCS: 96374; 96375 ×2; 96376; 36415; 71045; 80048; 80053; 82962; 83690; 83735; 83880; 84484; 85025; 85378; 85610; 93005; 93308; 99285; G0378; J1938; J2270; J2405

== ENCOUNTER 2024-11-18 08:27 | Outpatient (CLI) | payer MEDICARE, SELFPAY ==
--- NOTE | 2024-11-18 08:30 | FL_ITS ---
FINAL REPORT CLINICAL HISTORY: difficulty swallowing; food feels like it gets stuck in throat, pt states that bread, lettuce, and meat are the worst sometimes aspirates on liquids and on foods like crackers. Had an esophagus dilation 5 yrs ago fluoro 1:31 DAP 1164.45 82.2 mGy FINDINGS: BARIUM SWALLOW HISTORY: Dysphagia. TECHNIQUE: The patient ingested barium contrast. Spot films were performed. A total of 37 images were saved. FINDINGS: 13 mm barium tablet was delayed in the vallecula. The patient was able to get the barium tablet down with multiple subsequent swallows of thick barium. However, the patient did aspirate thick barium contrast during these attempts. 13 mm barium tablet passed easily through the remainder of the esophagus and into the stomach. There was mild gastroesophageal reflux demonstrated to the midesophagus. No mucosal defects were seen. Motility appeared normal. No changes of esophagitis were evident. FLUOROSCOPY TIME: 1 minute 31 seconds Radiation exposure in Reference air Kerma: 82.2 mGy IMPRESSION: 13 mm barium tablet delayed in the vallecula. Consider upper endoscopy/laryngoscopy to assess for possible underlying mass in the hypopharynx. A single episode of aspiration of the thick liquid consistency was noted while the patient tried to dislodge the barium tablet from the vallecula. Mild gastroesophageal reflux. Reviewed, Interpreted and Dictated by Wiley Jacobo MD Transcribed by Deirdre Jimenez PA-C Authenticated and [facility]
--- OUTSIDE RECORDS SUMMARY | 2024-11-18 08:32 | XMS_ITS | Encounter Summary ---
Author Organization Healthcare Address [address] [place] [address] Care Team Providers Care Selling Underwriter Name Role Phone Nola Fay APRN Primary Care Provider [phone] Maribel Ambriz DIGITAL FORENSIC EXAMINER Primary Care Provider [phone] Encounter Details Date Type Department Care Team (Late st Contact Info) Description 01/05/2022 Orders Only External Location [address] [place] [phone] Provider, External Social History Tobacco Use Types Packs/Day Years Used Date Smoking Tobacco: Never Smokeless Tobacco: Never Alcohol Use Standard Drinks/Week Comments No 0 (1 standard drink = 0.6 oz pur e alcohol) Comments Unknown Sex and Gender Information Value Date Recorded Sex Assigned at Not on file Legal Sex Female 8:14 PM EDT Gender Identity Not on file Sexual Orientation Not on file documented as of this encounter Plan of Treatment Upcoming Encounters Date Type Department Care Team (Late Contact Info) Description 12/20/2024 11:00 AM EDT Office Visit [facility] [address] [place] [address] Sujata Cullen, DIGITAL FORENSIC EXAMINER [address] [address] 08/18/2025 10:00 AM EDT [facility]ment [facility] [address] [place] [address] 08/18/2025 11:00 AM EDT [facility] [address] [facility], 2nd [place] [address] Corrina Ariza, DIGITAL FORENSIC EXAMINER [address] [facility] [address] [place] [address] documented as of this encounter Procedures Procedure Name Priority Date/Time Associated Diagnosis Comments MAMMOGRAPHY OUTSIDE IMAGES UPLOAD 01/05/2022 1:14 PM EDT documented in this encounter Results * Mammography Outside Images Upload (01/05/2022 1:14 PM EDT) Anatomical Region Laterality Modality Mammography 01/05/2022 1:14 PM EDT us External Provider IMG BI PROCEDURES Final Result documented in this encounter Visit Diagnoses Not on filedocumented in this encounter Care Teams Selling Underwriter Relationship Specialty Start Date End Date Nola Fay, DIGITAL FORENSIC EXAMINER [address] [place] [address] PCP - General 11/15/21 07/16/23 Maribel Ambriz, DIGITAL FORENSIC EXAMINER [address] [place] [address] PCP - General 07/17/23 documented as of this encounter
--- OUTSIDE RECORDS SUMMARY | 2024-11-18 08:32 | XMS_ITS | Encounter Summary ---
Author Organization Healthcare Address [address] [place] [address] Care Team Providers Care Mechanical Inspector Name Role Phone Maxx Matos MD Primary Care Provider [phone] Nola Fay APRN Primary Care Provider [phone] Maribel Ambriz STEREO OPERATOR Primary Care Provider Encounter Details Date Type Department Care Team (Late Contact Info) Description 09/03/2012 Orders Only External Location [address] [place] [phone] Maxx Matos MD [address] [place] [address] Social History Tobacco Use Types Packs/Day Years Used Date Smoking Tobacco: Never Assessed Comments Unknown Sex and Gender Information Value Date Recorded Sex Assigned at Not on file Legal Sex Female 8:14 PM EDT Gender Identity Not on file Sexual Orientation Not on file documented as of this encounter Plan of Treatment Upcoming Encounters Date Type Department Care Team (Late Contact Info) Description 12/20/2024 11:00 AM EDT Office Visit [facility] [address] [place] [address] Sujata Cullen APRN [address] [address] 08/18/2025 10:00 AM EDT [facility]ointment [facility] [place] [address] [address] [place] [address] 08/18/2025 11:00 AM EDT Office Visit [facility] [address] [facility], 2nd [place] [address] Corrina Ariza, STEREO OPERATOR [address] [facility] Yesenia Daigle [facility] 134 [place] [address] documented as of this encounter Procedures Procedure Name Priority Date/Time Associated Diagnosis Comments MAMMOGRAPHY OUTSIDE IMAGES UPLOAD 09/03/2012 10:32 AM EDT documented in this encounter Results * Mammography Outside Images Upload (09/03/2012 10:32 AM EDT) Anatomical Region Laterality Modality Mammography 09/03/2012 10:3 2 AM EDT us Maxx Matos MD IMG BI PROCEDURES Final Resul t documented in this encounter Visit Diagnoses Not on filedocumented in this encounter Care Teams Mechanical Inspector Relationship Specialty Start Date End Date Maxx Matos MD [address] [place] [address] PCP - General 10/23/20 11/14/21 Nola Fay APRN [address] [place] [address] PCP - General 11/15/21 07/16/23 Maribel Ambriz APRN [address] [place] [address] PCP - General 07/17/23 documented as of this encounter
--- OUTSIDE RECORDS SUMMARY | 2024-11-18 08:32 | XMS_ITS | Encounter Summary ---
Author Organization Healthcare Address [address] [place] [address] Care Team Providers Care Nursing Professor Name Role Phone Maxx Matos MD Primary Care Provider [phone] Nola Fay APRN Primary Care Provider [phone] Maribel Ambriz DEVELOPMENT DISABILITY SPECIALIST Primary Care Provider [phone] Encounter Details Date Type Department Care Team (Late Contact Info) Description 09/09/2013 Orders Only External Location [address] [place] [phone] Maxx Matos MD [address] [place] [address] Social History Tobacco Use Types [...] Description 12/20/2024 11:00 AM EDT Office Visit [facility] [address] [place] [address] Sujata Cullen APRN [address] [address] 08/18/2025 10:00 AM EDT Appointment [facility] [place] [address] [address] [place] [address] 08/18/2025 11:00 AM EDT [facility] [address] [facility], 2nd [place] [address] Corrina Ariza, DEVELOPMENT DISABILITY SPECIALIST 800 [facility] Yesenia Daigle [facility] 134 [place] [address] documented as of this encounter Procedures Procedure Name Priority Date/Time Associated Diagnosis Comments MAMMOGRAPHY OUTSIDE IMAGES UPLOAD 09/09/2013 10:58 AM EDT documented in this encounter Results * Mammography Outside Images Upload (09/09/2013 10:58 AM EDT) Anatomical Region Laterality Modality Mammography 09/09/2013 10:5 8 AM EDT us Maxx Matos MD IMG BI PROCEDURES Final Resul t documented in this encounter Visit Diagnoses Not on filedocumented in this encounter Care Teams Nursing Professor Relationship Specialty Start Date End Date Maxx Matos MD [address] [place] [address] PCP - General 10/23/20 11/14/21 Nola Fay APRN [address] [place] [address] PCP - General 11/15/21 07/16/23 Maribel Ambriz APRN [address] [place] [address] PCP - General 07/17/23 documented as of this encounter
--- OUTSIDE RECORDS SUMMARY | 2024-11-18 08:32 | XMS_ITS | Encounter Summary ---
Author Organization Healthcare Address [address] [place] [address] Care Team Providers Care Personal Vehicle Advisor Name Role Phone Maxx Matos MD Primary Care Provider [phone] Nola Fay APRN Primary Care Provider [phone] Maribel Ambriz LAMINATION MACHINE OPERATOR Primary Care Provider Encounter Details Date Type Department Care Team (Late Contact Info) Description 09/08/2011 Orders Only External Location [address] [place] [phone] Provider, External Social History Tobacco Use Types Packs/Day Years Used Date Smoking Tobacco: Never Assessed Comments Unknown Sex and Gender Information Value Date Recorded Sex Assigned at Not on file Legal Sex Female 8:14 PM EDT Gender Identity Not on file Sexual Orientation Not on file documented as of this encounter Plan of Treatment Upcoming Encounters Date Type Department Care Team (Late st Contact Info) Description 12/20/2024 11:00 AM EDT Office Visit [facility] [address] [place] [address] Sujata Cullen APRN [address] [address] 08/18/2025 10:00 AM EDT Appointment [facility] [address] [place] [address] 08/18/2025 11:00 AM EDT Office Visit [facility] 7[address] [facility], 2nd [place] [address] Corrina Ariza, LAMINATION MACHINE OPERATOR 800 [facility] Yesenia Daigle [facility] 134 [place] [address] documented as of this encounter Procedures Procedure Name Priority Date/Time Associated Diagnosis Comments MAMMOGRAPHY OUTSIDE IMAGES UPLOAD 09/08/2011 1:27 PM EDT documented in this encounter Results * Mammography Outside Images Upload (09/08/2011 1:27 PM EDT) Anatomical Region Laterality Modality Mammography 09/08/2011 1:27 PM EDT us External Provider IMG BI PROCEDURES Final Result documented in this encounter Visit Diagnoses Not on filedocumented in this encounter Care Teams Personal Vehicle Advisor Relationship Specialty Start Date End Date Maxx Matos MD [address] [place] [address] PCP - General 10/23/20 11/14/21 Nola Fay, LAMINATION MACHINE OPERATOR [address] [place] [address] PCP - General 11/15/21 07/16/23 Maribel Ambriz APRN [address] [place] [address] PCP - General 07/17/23 documented as of this encounter
--- OUTSIDE RECORDS SUMMARY | 2024-11-18 08:32 | XMS_ITS | Data Portability ---
Author Organization LC - [facility] Villar [facility] CLOSED Address [address] [facility] [address] [place] [address] Assessment No assessment recorded. Plan of Treatment [...] Repor t NAME: NICHOLE MORALES PATH. :ST-2 [id number] Copy to: Diagn osis: A) Gastr ic biops y: -Mild chron ic gastr itis. -Immu nosta in for Helic obact er pylor i: Negat merline. 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 -Foca l jorge luis t cell intes tinal metap lasia (see comme nt). Comme nt: Intes tinal metap lasia can be seen with [place] tt's esoph nafisa, or with intes tinal [...] 14:24 Page 1 of 1 Not Available [facility] [address] [place] [address], [place], [address], 10/19/2021 14:26:02 09/29/19 22 09/28/2021 RF, esoph nafisa, w/ contr ast [facility] [address] [facility] [place] [address] Sidra matos Name: NICHOLE matos : 09/18/18 [...] Liz Lucero MD on 022 2:40 PM [facility] Radiology [facility] [address] [place], [address], 10/13/2021 12:10:50 10/09/19 22 07/21/2021 cardi ac monit or No observ ation record ed. [facility] (Med Record) [address] [place], [address], 10/20/2021 14:41:29 Result Notes None recorded. Medical Equipment None Reported. Allergies Allergen ID Allergen Name Allergen Category Reaction Reaction Severity Criticality Documentation Date Start Date Code Code System Note Provider Name and Address Organization Details Recorded Time 715177 penicilla mine medicatio n Not available Not available Not available 09/16/2021 7975 RxNorm [facility] 2 14:08:13 703781 Product containin g 3-hydroxy -3-methyl glutaryl- coenzyme A reductase inhibitor (product) medicatio n Not available Not available Not available 09/16/2021 15890 009 SNOMED [facility] 2 14:08:27 Medications Name Sig Start [...] Updated DateTime 2 162.56 cm 36.2 kg/m2 58666.9 9 g 61 /min 16 /min 137 mm[Hg] 66 mm[Hg] Rose Medina [facility] 2 14:07:43 Date Recorded Body weight Heart rate Respiratory rate Systolic blood pressure Diastolic blood pressure Provider Name and Address Organization Details Last Updated DateTime 3 93715.8 8 g 70 /min 17 /min 122 mm[Hg] 52 mm[Hg] Nancy Hamilton [facility] 3 15:00:14 Social History Question Answer Notes LastModified by Organizat ion Details LastModified Time Tobacco Smoking Status Never Smoker Rose Medina [facility] 09/16/2021 14:14:34 What Is Your Relationship [...] available 09/16 14:14:22 Medical History Condition Response Depression Y Difficulty Swallowing Y Anxiety Disorder Y Arthritis Y Cancer Y Radiation Therapy Y High Cholesterol Y GI Problems Y Diabetes Y Sleep Disorder Y GERD/Reflux Y Heart Disease Y Hypertension Y Gynecological HistoryNo gynecological history recorded. Obstetrics History GPAL:G 0 P 0 0 0 0 Past Encounters Encounter ID Performer Location Encounter Start Date Encounter Closed Date Diagnosis/Indication Diagnosis SNOMED-CT Code Diagnosis ICD10 Code Diagnosis Note [id number] CHOCO CÁRDENAS MD GASTRO [place] [address] [facility], [address] [place] [address] 1 09/16/2021 13:45:01 09/16/2021 14:42:34 Chronic idiopathic constipation 47287216 K59.04 Start miralax once dailyRecom mend daily fiber intake to keep atleast 25-30 gm fiber daily Dysphagia 76162897 R13.1 0 Will arrange barium esophagram with tabletObta in modified barium study resultsWil l need to arange EGD evaluation of dysphagia. Family his tory of cancer of colon 019908228 Z80.0 Will need to arrange colonoscop y for high risk screening. Will obtain her most recent cardiology records with 2D echo prior to completing outpatient endoscopy. [id number] CHOCO CÁRDENAS MD SURGERY SCHEDULE [address] [place] [address] 10/18/2021 07:10:51 10/18/2021 07:11:19 [id number] CHOCO CÁRDENAS MD GASTRO SB [address] [facility], [address] [place] [address] 1 10/12/2022 14:48:45 10/12/2022 15:38:47 Altered bowel function 30588102 R19.4 Samples given to her to try [...] (MEDICARE REPLACEMENT/A DVANTAGE - PPO) Nichole Morales [id number] Nichole Morales 09/16/2021 1 [place] Nichole Morales [id number] Nichole Morales Notes Date Note Type Note [...] study that was abnormal completed recently thru [facility]. I do not have that record for review. She denies weight loss. She denies abdominal pain. She has chronic constipation for several years. Her last colonoscopy was completed thru [facility] about 10 years ago. She does not recall having had colon polyps. Her father had colon cancer. She did a cologaurd 3-4 years ago that was reportedly negative. Her last echo was about 2 years ago at , she does not recall a having a history of CHF. CHOCO CÁRDENAS MD [address] [place] [address], [address], [facility] 09/16/2021 14:42:51 10/12/2022 text/html Reason for visit [...] Has had modified barium study completed thru [facility] in past. He dysphagia symptoms seems [...] 40 mg once daily. CHOCO CÁRDENAS MD [address] [place] [address] [place], [address], [place] [facility] 10/12/2022 15:36:51 OBGyn Episode No OBEpisode recorded.
--- OUTSIDE RECORDS SUMMARY | 2024-11-18 08:32 | XMS_ITS | Encounter Summary ---
Author Organization Healthcare Address [address] [place] [address] Care Team Providers Care Pickers Material Handlers Name Role Phone Maxx Matos MD Primary Care Provider [phone] Nola Fay APRN Primary Care Provider [phone] Maribel Ambriz PARTS LISTER Primary Care Provider [phone] Encounter Details Date Type Department Care Team (Late Contact Info) Description 10/08/2013 Orders Only External Location [address] [place] [address] Provider, External Social History Tobacco Use Types [...] Description 12/20/2024 11:00 AM EDT Office Visit [facility] [address] [place] [address] Sujata Cullen APRN [address] [address] 08/18/2025 10:00 AM EDT [facility]ment [facility] [address] [place] [address] 08/18/2025 11:00 AM EDT [facility] 7[address] [facility], 2nd [place] [address] Corrina Ariza, PARTS LISTER 800 [facility] [address] [facility] 134 [place] [address] documented as of this encounter Procedures Procedure Name Priority Date/Time Associated Diagnosis Comments MAMMOGRAPHY OUTSIDE IMAGES UPLOAD 10/08/2013 9:35 AM EDT documented in this encounter Results * Mammography Outside Images Upload (10/08/2013 9:35 AM EDT) Anatomical Region Laterality Modality Mammography 10/08/2013 9:35 AM EDT us External Provider IMG BI PROCEDURES Final Result documented in this encounter Visit Diagnoses Not on filedocumented in this encounter Care Teams Pickers Material Handlers Relationship Specialty Start Date End Date Maxx Matos MD [address] [place] [address] PCP - General 10/23/20 11/14/21 Nola Fay, PARTS LISTER [address] [place] [address] PCP - General 11/15/21 07/16/23 Maribel Ambriz, PARTS LISTER [address] [place] [address] PCP - General 07/17/23 documented as of this encounter
--- OUTSIDE RECORDS SUMMARY | 2024-11-18 08:32 | XMS_ITS | Encounter Summary ---
Author Organization Healthcare Address [address] [place] [address] Care Team Providers Care Legal Secretary Receptionist Name Role Phone Nola Fay APRN Primary Care Provider [phone] Maribel Ambriz APRN Primary Care Provider [phone] Encounter Details Date Type Department Care Team (Late Contact Info) Description 01/21/2022 Orders Only External Location [address] [place] [phone] Sarah Oliver MD [address] [place] [address] Social History Tobacco Use Types Packs/Day Years [...] Description 12/20/2024 11:00 AM EDT Office Visit [facility] [address] [place] [address] Sujata Cullen APRN [address] [phone] 08/18/2025 10:00 AM EDT [facility]ointment [facility] [place] [address] [address] [place] [address] 08/18/2025 11:00 AM EDT Office Visit [facility] 740 [facility], 2nd [place] [address] Corrina Ariza, URGENT CARE NURSE PRACTITIONER 800 [facility] [address] [place] [address] documented as of this encounter Procedures Procedure Name Priority Date/Time Associated Diagnosis Comments US BREAST OUTSIDE IMAGES 01/21/2022 9:28 AM EDT documented in this encounter Results * US BREAST OUTSIDE IMAGES (01/21/2022 9:28 AM EDT) Anatomical Region Laterality Modality Breast Mammography 01/21/2022 9:28 AM EDT Sarah Oliver MD IMG BI PROCEDURES Final Result documented in this encounter Visit Diagnoses Not on filedocumented in this encounter Care Teams Legal Secretary Receptionist Relationship Specialty Start Date End Date Nola Fay, URGENT CARE NURSE PRACTITIONER [address] [place] [address] PCP - General 11/15/21 07/16/23 Maribel Ambriz, URGENT CARE NURSE PRACTITIONER [address] [place] [address] PCP - General 07/17/23 documented as of this encounter
--- OUTSIDE RECORDS SUMMARY | 2024-11-18 08:32 | XMS_ITS | Encounter Summary ---
Author Organization Healthcare Address [address] [place] [address] Care Team Providers Care Bereavement Coordinator Name Role Phone Maxx Matos MD Primary Care Provider [phone] Nola Fay INTERLOCKING PAVEMENT INSTALLER Primary Care Provider [phone] Maribel Ambriz INTERLOCKING PAVEMENT INSTALLER Primary Care Provider Encounter Details Date Type Department Care Team (Late st Contact Info) Description 12/01/2020 Orders Only External Location [address] [place] [address] Sarah Oliver MD [address] [place] [address] Social History Tobacco Use Types Packs/Day Years Used Date Smoking Tobacco: Never Alcohol Use Standard Drinks/Week Comments [...] Description 12/20/2024 11:00 AM EDT Office Visit [facility] [address] [place] [address] Sujata Cullen, INTERLOCKING PAVEMENT INSTALLER [address] [address] 08/18/2025 10:00 AM EDT [facility]ointment [facility] [address] Building [address] [place] [address] 08/18/2025 11:00 AM EDT [facility] [address] 2nd [place] [address] Corrina Ariza, INTERLOCKING PAVEMENT INSTALLER 800 [facility] Yesenia Daigle [facility] [address] [place] [address] documented as of this encounter Procedures Procedure Name Priority Date/Time Associated Diagnosis Comments MAMMOGRAPHY OUTSIDE IMAGES UPLOAD 12/01/2020 2:48 PM EDT documented in this encounter Results * Mammography Outside Images Upload (12/01/2020 2:48 PM EDT) Anatomical Region Laterality Modality Mammography 12/01/2020 2:48 PM EDT Sarah Oliver MD IMG BI PROCEDURES Final Result documented in this encounter Visit Diagnoses Not on filedocumented in this encounter Care Teams Bereavement Coordinator Relationship Specialty Start Date End Date Maxx Matos MD [address] [place] [address] PCP - General 10/23/20 11/14/21 Nola Fay APRN [address] [place] [address] PCP - General 11/15/21 07/16/23 Maribel Ambriz APRN [address] [place] [address] PCP - General 07/17/23 documented as of this encounter
--- OUTSIDE RECORDS SUMMARY | 2024-11-18 08:32 | XMS_ITS | Encounter Summary ---
Author Organization Healthcare Address [address] [place] [address] Care Team Providers Care Flight Test Supervisor Name Role Phone Maxx Matos MD Primary Care Provider [phone] Nola Fay APRN Primary Care Provider [phone] Maribel Ambriz SNOW REMOVER Primary Care Provider Encounter Details Date Type Department Care Team (Late Contact Info) Description 09/24/2013 Orders Only External Location [address] [place] [phone] Maxx Matos MD [address] [place] [address] Social History Tobacco Use Types [...] Description 12/20/2024 11:00 AM EDT Office Visit [facility] [address] [place] [address] Sujata Cullen APRN [address] [address] 08/18/2025 10:00 AM EDT Appointment [facility] [place] [address] [address] [place] [address] 08/18/2025 11:00 AM EDT Office Visit [facility] [address] [facility], 2nd [place] [address] Corrina Ariza, SNOW REMOVER 800 [facility] Yesenia Daigle [facility] 134 [place] [address] documented as of this encounter Procedures Procedure Name Priority Date/Time Associated Diagnosis Comments MAMMOGRAPHY OUTSIDE IMAGES UPLOAD 09/24/2013 8:34 AM EDT documented in this encounter Results * Mammography Outside Images Upload (09/24/2013 8:34 AM EDT) Anatomical Region Laterality Modality Mammography 09/24/2013 8:34 AM EDT us Maxx Matos MD IMG BI PROCEDURES Final Resul t documented in this encounter Visit Diagnoses Not on filedocumented in this encounter Care Teams Flight Test Supervisor Relationship Specialty Start Date End Date Maxx Matos MD [address] [place] [address] PCP - General 10/23/20 11/14/21 Nola Fay APRN [address] [place] [address] PCP - General 11/15/21 07/16/23 Maribel mAbriz, SNOW REMOVER [address] [place] [address] PCP - General 07/17/23 documented as of this encounter
--- OUTSIDE RECORDS SUMMARY | 2024-11-18 08:32 | XMS_ITS | Clinical Summary ---
Author Organization [facility] Address [address] [place] [address] Care Team Providers Care Public Health Technologist Name Role Phone Maribel Ambriz APRN Primary Care Provider [phone] Allergies Active Allergy Reactions Criticality Noted Date Comments Cefuroxime Rash Low 05/29/2019 Penicillins Rash Low 05/29/2019 Statins Other - please docum ent in the comment field Low 05/29/2019 Myalgia Medications furosemide (Lasix) 40 MG tablet TAKE 1 TABLET DAILY. 06/18/19 Active clopidogrel (Plavix) 75 MG tablet Take 1 tablet daily 05/30/20 Active Magnesium Oxide 400 MG capsule Take by mouth 1 (one) time each day. 05/30/20 Active milnacipran (SavElla) 50 MG tablet Take 1 tablet twice daily 05/30/20 Active ezetimibe (Zetia) 10 MG tablet TAKE 1 TABLET DAILY. 05/30/20 Active escitalopram (Lexapro) 20 MG tablet TAKE 1 TABLET DAILY. 05/30/20 Active insulin NPH-insulin regular (INSULIN NPH ISOPHANE & REGULAR HUMAN INJ) (70-30) 100 UNIT/ML SC injection INJECT 30 UNIT Twice daily 05/30/20 Active empagliflozin (Jardiance) 10 MG Take by mouth 1 (one) time each day. Active ranolazine (Ranexa) 500 MG 12 hr tablet Take 1 tablet (500 mg) by mouth 2 (two) times a day. Do not crush, chew, or split. Active isosorbide mononitrate ER (Imdur) 60 MG 24 hr tablet Take 1 tablet (60 mg) by mouth 2 (two) times a day. 07/18/19 24 Active bisoprolol (Zebeta) 10 MG tablet Take 1 tablet (10 mg) by mouth Daily. Active pantoprazole (Protonix) 40 MG EC tablet Take 1 tablet (40 mg) by mouth Daily. 11/03/19 23 Active Continuous Blood Gluc Sensor (FreeStyle Mounika 14 Day Sensor) misc 08/09/19 24 Active Repatha SureClick 140 MG/ML solution auto-injector INJECT 1 AUTO INJECTOR SUBCUTANEOUSLY EVERY TWO WEEKS 08/03/19 24 Active calcitriol (Rocaltrol) 0.25 MCG capsule 02/15/20 24 Active gabapentin (Neurontin) 100 MG capsule 02/13/20 24 Active nystatin (Mycostatin) 050058 UNIT/ML suspension 02/13/20 24 Active levocetirizine (Xyzal) 5 MG tablet Take 1 tablet (5 mg) by mouth. 02/14/20 24 Active Active Problems Problem Noted Date Diagnosed Date Fibromyalgia 07/28/2022 Stage 3 chronic kidney disease due to diabetes hemanth marley 04/05/2022 Coronary artery disease 05/29/2019 Diabetes 05/29/2019 Hyperlipidemia 05/29/2019 Hypertension 05/29/2019 Immunizations Immunization Administration Dates Next Due Influenza, high-dose, quadrivalent 05/10/2023 TD (adult), 2 Lf tetanus tox oid, preservative free, adsorbed 08/17/1996 Td (adult) 12/18/2022 Family History Medical History Relation Name Comments Cancer Brother Kris Conversions - Other Brother Kris CAD (cor onary artery disease), [place] coronary artery Diabetes Brother Kris Heart disease Brother Kris Hypertension Brother Kris Melanoma Brother Kris Cancer Father Tanner Colon cancer Father Tanner Hypertension Father Tanner Lung cancer Father Tanner Crohn's disease Mother Heart failure Mother Breast cancer Sister 1 Alexandra Cancer Sister 1 Alexandra Diabetes Sister 1 Alexandra Kidney cancer Sister 2 Hypertension Sister 3 Megan Kidney disease Sister 3 Megan Relation Name Status Comments Brother Kris Father Tanner Mother Sister 1 Alexandra Sister 2 Sister 3 Megan Social History Tobacco Use Types Packs/Day Years Used Date Smoking Tobacco: Never Passive Smoke Exposure: Never Smokeless Tobacco: Never Tobacco Cessation:Counseling Given: Not Answered Alcohol Use Standard Drinks/Week Comments Never 0 (1 standard drink = 0.6 oz pur e alcohol) Comments No Sex and Gender Information Value Date Recorded Sex Assigned at Not on file Legal Sex Female 8:14 PM EDT Gender Identity Not on file Sexual Orientation Not on file Last Filed Vital Signs Vital Sign Reading Time Taken Comments Blood Pressure 111/64 08/14/2024 3:08 PM EST Pulse 62 08/14/2024 3:08 PM EST Temperature 36.7 C (98 F) 08/14/2024 3:08 PM EST Respiratory Rate 16 08/14/2024 3:08 PM EST Oxygen Saturation 97% 08/14/2024 3:08 PM EST Inhaled Oxygen Concentration - - Weight 92.7 kg (204 lb 5.9 oz) 02/16/2024 10:55 AM EDT Height 162.6 cm (5' 4 ) 08/14/2024 2:39 PM EST Body Mass Index 35.08 02/16/2024 10:55 AM EDT Plan of Treatment Upcoming Encounters Date Type Department Care Team ([facility] st Contact Info) Description 12/20/2024 11:00 AM EDT Office Visit [facility] [address] [place] [address] Sujata Cullen, GAS STATION ATTENDANT [address] [facility] [address] [place] [address] 08/18/2025 10:00 AM EDT Appointment [facility] [place] [address] [address] [facility] [address] [place] [address] 08/18/2025 11:00 AM EDT Office Visit [facility] Breast [facility] Center [address] [facility], 2nd [place] [address] Corrina Ariza, GAS STATION ATTENDANT 800 [facility] [address] [place] [address] Health Maintenance Due Date Last Done Comments [facility]-Bone Density Scan 1950 [facility]-Depression Screening 1950 [facility]-Hepatitis C Screening 1950 [facility]-Medicare Annual Wellness (AWV) 1950 [facility]-/Child/Adol SDOH Screenings 1950 Diabetes: Dental Exam 1960 [facility]- SDOH Screenings 1968 [facility]-Adult SDOH Screenings 1968 [facility]-Pneumococcal Vaccine: 50 + Years (1 of 2 - PCV) 1969 [facility]-Zoster Vaccines (1 of 2) 1969 CT Colonography 09/19/1995 Colonoscopy 09/19/1995 FIT-DNA 09/19/1995 FIT 09/19/1995 FOBT 09/19/1995 Sigmoidoscopy 09/19/1995 [facility]-Colorectal Cancer Screening 09/19/1995 [facility]-RSV Vaccine: 60+ Years o r (1 - Risk 60-74 years 1-dose series) 2010 [facility]-Diabetes: Hemoglobin A1C 12/12/2019 06/14/2019 [id number] Vaccine ( season) 2024 07/21/2021, 09/10/2020, 08/13/2020 [facility]-Breast Cancer Screening 08/14/2026 03/0 10/2024, 07/17/2023 [facility]-DTaP,Tdap,and Td Vaccine s (3 - Td or Tdap) 12/18/2032 12/18/2022, 11/30/2016, 08/17/1996 [facility]-Obesity Intervention Completed 024, 08/14/2023, 08/01/2022 [facility]-Influenza Vaccine Completed 04/16/2024 , 05/10/2023 HPV Vaccines Aged Out No longer eligi ble based on patient's age to complete this topic [facility]-HIB Vaccines Aged Out No longer e ligible based on patient's age to complete this topic [facility]-Hepatitis A Vaccines Aged Out No longer eligible based on patient's age to complete this topic [facility]-IPV Vaccines Aged Out No longer e ligible based on patient's age to complete this topic [facility]-Rotavirus Vaccines Aged Out No lo nger eligible based on patient's age to complete this topic Medical Devices Implanted Type Area Helpdesk Specialist Device Identifier Shelf Expiration Date Model / Serial / Lot Sonal [employer] Joycelyniva Std - [id number] Implanted:Qty: 1 on 08/10/2023 by Lien Arana MD at [facility] Left: Breast [id number] -[id number] / / Procedures Procedure Name Priority Date/Time Associated Diagnosis Comments MAMMOGRAPHY BREAST SCREENING TOMOSYNTHESIS BILATERAL Routine 08/14/2024 2:48 PM EST Pseudoangiomatous stromal hyperplasia of breast HEMOGLOBIN A1C Routine 06/14/2019 3:55 AM EST from Last 3 Months or Most Recently Relevant to Health Maintenance Results * Mammography Breast Screening Tomosynthesis Bilateral (08/14/2024 2:48 PM EST) Anatomical Region Laterality Modality Breast Bilateral Mammography Impressions 08/15/2024 4:10 PM EST No mammographic evidence of malignancy. BI-RADS CATEGORY: Overall: 2 - Benign RECOMMENDATION: - Routine Screening Mammogram in 1 Year. Patient Lifetime Risk Score of Breast Malignancy: A risk score has not been calculated for this patient. This risk assessment is calculated using the Le Risk Assessment model which may underestimate the lifetime risk of breast malignancy. COMMUNICATION: Computer-aided detection (CAD) and tomosynthesis were utilized by the radiologist in the interpretation of this examination. The results and recommendations will be sent to the patient in a printed lay language version of the imaging report. Narrative 08/15/2024 4:10 PM EST EXAM: Mammography Breast Screening with Tomosynthesis REASON FOR EXAM: Screening Mammogram HISTORY: Patient is 73 y.o. Family medical history includes breast cancer in sister and colon cancer in father. Hormone history includes control (3 years). Surgical and procedural history include breast biopsy; left lumpectomy, 2013 (with SLN bx); hysterectomy (Hysterectomy from [facility]); left breast surgery, 2013 (with SLN bx); and left breast lumpectomy, 2013 (with SLN bx). Medical history includes breast cancer, 2013 (left breast); radiation therapy, 2013 (left breast); and chemotherapy, 2013. COMPARISON STUDIES: Compared to: 12/01/2020 Mammography Outside Images Upload 12/21/2021 Mammography Outside Images Upload 01/05/2022 Mammography Outside Images Upload 07/17/2023 Mammography Breast Diagnostic Tomosynthesis Bilateral at [facility] 08/07/2023 Mammography Breast Post Biopsy Clip Left at [facility] 08/10/2023 Mammography Stereotactic Breast Biopsy Left at [facility] 08/10/2023 Mammography Breast Post Biopsy Clip Left at [facility] 02/16/2024 Mammography Breast Diagnostic Tomosynthesis Left at [facility] BREAST COMPOSITION: There are scattered areas of fibroglandular density. FINDINGS: There are post-lumpectomy changes present in the left breast. There is no evidence of suspicious masses, calcifications, or other abnormal findings. Corrina Ariza APRN IMG BI PROCEDURES Final Re sult * (ABNORMAL) Hemoglobin A1c (06/14/2019 3:55 AM EST) Hemoglobin A1c 6.7(H) 4.7 - 6.0 % [facility] Comment: Glycohemoglobin Reference Range, 0 years and up: 4.7 to 6.0% . HA1C Interpretive Data: Diagnosis of Diabetes: Diabetic > or = 6.5% Pre-diabetic 5.7 to 6.4% Non-diabetic < or = 5.6% . Glycemic Targets for Type I and Type II Diabetics: Non- Adults <7.0% Adults <6.0% Children and Adolescents <7.5% . Source: [place] Diabetes Association. Standards of medical care in diabetes, 2017. Diabetes Care.2017:40 (suppl 1):S1-S135. . HbA1c assay performed by an ion-exchange chromatography method that is certified traceable to the DCCT. 06/14/2019 3:55 AM EST 06/14/2019 4:15 AM EST Linda Pereyra APRN LAB BLOOD ORDERABLES Final Res ult [facility]QUEST from Last 3 Months or Most Recently Relevant to Health Maintenance Insurance [facility] MEDICARE Care Teams Public Health Technologist Relationship Specialty Start Date End Date Maribel Ambriz APRN [address] [place] [address] PCP - General 07/17/23
--- OUTSIDE RECORDS SUMMARY | 2024-11-18 08:32 | XMS_ITS | Encounter Summary ---
Author Organization Healthcare Address [address] [place] [address] Care Team Providers Care Roll Sheeting Cutter Name Role Phone Maxx Matos MD Primary Care Provider [phone] Nola Fay APRN Primary Care Provider [phone] Maribel Ambriz DOCUMENT PROCESSOR Primary Care Provider [phone] Encounter Details Date Type Department Care Team (Late Contact Info) Description 09/24/2013 Orders Only External Location [address] [place] [phone] Maxx Matos MD [address] [place] [address] Social History Tobacco Use [...] 11:00 AM EDT Office Visit [facility] [address] [place] [address] Sujata Cullen APRN [address] [address] 08/18/2025 10:00 AM EDT Appointment [facility] [place] [address] Yesenia Daigle [address] [place] [address] 08/18/2025 11:00 AM EDT Office Visit [facility] [address] [facility], 2nd [place] [address] Corrina Ariza, DOCUMENT PROCESSOR [address] [facility] Yesenia Daigle [facility] [address] [place] [address] documented as of this encounter Procedures Procedure Name Priority Date/Time Associated Diagnosis Comments US BREAST OUTSIDE IMAGES 09/24/2013 8:03 AM EDT documented in this encounter Results * US BREAST OUTSIDE IMAGES (09/24/2013 8:03 AM EDT) Anatomical Region Laterality Modality Breast Mammography 09/24/2013 8:03 AM EDT us Maxx Matos MD IMG BI PROCEDURES Final Resul t documented in this encounter Visit Diagnoses Not on filedocumented in this encounter Care Teams Roll Sheeting Cutter Relationship Specialty Start Date End Date Maxx Matos MD [address] [place] [address] PCP - General 10/23/20 11/14/21 Nola Fay APRN [address] [place] [address] PCP - General 11/15/21 07/16/23 Maribel Ambriz, DOCUMENT PROCESSOR [address] [place] [address] PCP - General 07/17/23 documented as of this encounter
--- OUTSIDE RECORDS SUMMARY | 2024-11-18 08:32 | XMS_ITS | Encounter Summary ---
Author Organization Healthcare Address [address] [place] [address] Care Team Providers Care Key Punch Teacher Name Role Phone Nola Fay APRN Primary Care Provider [phone] Maribel Ambriz MOTOR EQUIPMENT COMMANDING OFFICER Primary Care Provider [phone] Encounter Details Date Type Department Care Team (Late st Contact Info) Description 01/05/2022 Orders Only External Location [address] [place] [phone] Provider, External Social History Tobacco Use Types [...] AM EDT Office Visit [facility] [address] [place] [address] Sujata Cullen, MOTOR EQUIPMENT COMMANDING OFFICER [address] [address] 08/18/2025 10:00 AM EDT Appointment [facility] [address] [place] [address] 08/18/2025 11:00 AM EDT Office Visit [facility] [address] [facility], 2nd [place] [address] Corrina Ariza, MOTOR EQUIPMENT COMMANDING OFFICER [address] [place] [address] documented as of this encounter Procedures Procedure Name Priority Date/Time Associated Diagnosis Comments US BREAST OUTSIDE IMAGES 01/05/2022 1:40 PM EDT documented in this encounter Results * US BREAST OUTSIDE IMAGES (01/05/2022 1:40 PM EDT) Anatomical Region Laterality Modality Breast Mammography 01/05/2022 1:40 PM EDT us External Provider IMG BI PROCEDURES Final Result documented in this encounter Visit Diagnoses Not on filedocumented in this encounter Care Teams Key Punch Teacher Relationship Specialty Start Date End Date Nola Fay, MOTOR EQUIPMENT COMMANDING OFFICER [address] [place] [address] PCP - General 11/15/21 07/16/23 Maribel Ambriz, MOTOR EQUIPMENT COMMANDING OFFICER [address] [place] [address] PCP - General 07/17/23 documented as of this encounter
--- OUTSIDE RECORDS SUMMARY | 2024-11-18 08:33 | XMS_ITS | Encounter Summary ---
Author Organization Healthcare Address [address] [place] [address] Care Team Providers Care Printer Maintainer Name Role Phone Maxx Matos MD Primary Care Provider [phone] Nola Fay REPRODUCTIVE HEALTHCARE ASSISTANT Primary Care Provider [phone] Maribel Ambriz REPRODUCTIVE HEALTHCARE ASSISTANT Primary Care Provider [phone] Encounter Details Date Type Department Care Team (Late Contact Info) Description 12/13/2019 Orders Only External Location [address] [place] [phone] Sarah Oliver MD [address] [place] [address] Social History Tobacco Use Types Packs/Day Years [...] Description 12/20/2024 11:00 AM EDT Office Visit [facility] [address] [place] [address] Sujata Cullen APRN [address] [address] 08/18/2025 10:00 AM EDT Appointment [facility] [address] [address] 08/18/2025 11:00 AM EDT Office Visit [facility] Breast Care Center [address] [facility], 2nd [place] [address] Corrina Ariza, REPRODUCTIVE HEALTHCARE ASSISTANT [address] [facility] [address] [place] [address] documented as of this encounter Procedures Procedure Name Priority Date/Time Associated Diagnosis Comments US BREAST OUTSIDE IMAGES 12/13/2019 2:37 PM EDT documented in this encounter Results * US BREAST OUTSIDE IMAGES (12/13/2019 2:37 PM EDT) Anatomical Region Laterality Modality Breast Mammography 12/13/2019 2:37 PM EDT Sarah Oliver MD IMG BI PROCEDURES Final Result documented in this encounter Visit Diagnoses Not on filedocumented in this encounter Care Teams Printer Maintainer Relationship Specialty Start Date End Date Maxx Matos MD [address] [place] [address] PCP - General 10/23/20 11/14/21 Nola Fay REPRODUCTIVE HEALTHCARE ASSISTANT [address] [place] [address] PCP - General 11/15/21 07/16/23 Maribel Ambriz, REPRODUCTIVE HEALTHCARE ASSISTANT [address] [place] [address] PCP - General 07/17/23 documented as of this encounter
--- OUTSIDE RECORDS SUMMARY | 2024-11-18 08:33 | XMS_ITS | Encounter Summary ---
Author Organization Healthcare Address [address] [place] [address] Care Team Providers Care Clinical Specialist Name Role Phone Maxx Matos MD Primary Care Provider [phone] Nola Fay APRN Primary Care Provider [phone] Maribel Ambriz RENAL DIALYSIS TECHNICIAN Primary Care Provider [phone] Encounter Details Date Type Department Care Team (Late Contact Info) Description 10/08/2013 Orders Only External Location [address] [place] [phone] Provider, External Social History Tobacco Use Types [...] Description 12/20/2024 11:00 AM EDT Office Visit [facility] [address] [place] [address] Sujata Cullen APRN [address] [address] 08/18/2025 10:00 AM EDT Appointment [facility] [address] [place] [address] 08/18/2025 11:00 AM EDT Office Visit [facility] [address] [facility], 2nd [place] [address] Corrina Ariza, RENAL DIALYSIS TECHNICIAN 800 [facility] Yesenia Daigle [facility] [address] [place] [address] documented as of this encounter Procedures Procedure Name Priority Date/Time Associated Diagnosis Comments MAMMOGRAPHY OUTSIDE IMAGES UPLOAD 10/08/2013 8:42 AM EDT documented in this encounter Results * Mammography Outside Images Upload (10/08/2013 8:42 AM EDT) Anatomical Region Laterality Modality Mammography 10/08/2013 8:42 AM EDT us External Provider IMG BI PROCEDURES Final Result documented in this encounter Visit Diagnoses Not on filedocumented in this encounter Care Teams Clinical Specialist Relationship Specialty Start Date End Date Maxx Matos MD [address] [place] [address] PCP - General 10/23/20 11/14/21 Nola Fay, RENAL DIALYSIS TECHNICIAN [address] [place] [address] PCP - General 11/15/21 07/16/23 Maribel Ambriz, RENAL DIALYSIS TECHNICIAN [address] [place] [address] PCP - General 07/17/23 documented as of this encounter
--- OUTSIDE RECORDS SUMMARY | 2024-11-18 08:33 | XMS_ITS | Encounter Summary ---
Author Organization Healthcare Address [address] [place] [address] Care Team Providers Care Coat Operator Insulator Name Role Phone Maxx Matos MD Primary Care Provider [phone] Nola Fay APRN Primary Care Provider [phone] Maribel Ambriz POLICE INSPECTOR Primary Care Provider [phone] Encounter Details Date Type Department Care Team (Late Contact Info) Description 10/28/2015 Orders Only External Location [address] [place] [phone] Provider, External Social History Tobacco Use Types [...] [place] [address] Sujata Cullen APRN [address] [address] 08/18/2025 10:00 AM EDT Appointment [facility] [address] [place] [address] 08/18/2025 11:00 AM EDT Office Visit [facility] [address] [facility], 2nd [place] [address] Corrina Ariza, POLICE INSPECTOR [address] [facility] Yesenia Daigle [facility] [address] [place] [address] documented as of this encounter Procedures Procedure Name Priority Date/Time Associated Diagnosis Comments MAMMOGRAPHY OUTSIDE IMAGES UPLOAD 10/28/2015 1:50 PM EDT documented in this encounter Results * Mammography Outside Images Upload (10/28/2015 1:50 PM EDT) Anatomical Region Laterality Modality Mammography 10/28/2015 1:50 PM EDT us External Provider IMG BI PROCEDURES Final Result documented in this encounter Visit Diagnoses Not on filedocumented in this encounter Care Teams Coat Operator Insulator Relationship Specialty Start Date End Date Maxx Matos MD [address] [place] [address] PCP - General 10/23/20 11/14/21 Nola Fay, POLICE INSPECTOR [address] [place] [address] PCP - General 11/15/21 07/16/23 Maribel Ambriz APRN [address] [place] [address] PCP - General 07/17/23 documented as of this encounter
--- OUTSIDE RECORDS SUMMARY | 2024-11-18 08:33 | XMS_ITS | Encounter Summary ---
Author Organization Healthcare Address [address] [place] [address] Care Team Providers Care Hand Flesher Name Role Phone Maxx Matos MD Primary Care Provider [phone] Nola Fay UNDERWRITER MORTGAGE LOAN Primary Care Provider [phone] Maribel Ambriz UNDERWRITER MORTGAGE LOAN Primary Care Provider [phone] Encounter Details Date Type Department Care Team (Late Contact Info) Description 12/13/2019 Orders Only External Location [address] [place] [phone] Sarah Oliver MD [address] [place] [address] Social History Tobacco Use Types Packs/Day Years [...] Description 12/20/2024 11:00 AM EDT Office Visit [facility] [address] [place] [address] Sujata Cullen APRN [address] [address] 08/18/2025 10:00 AM EDT Appointment [facility] [address] [address] 08/18/2025 11:00 AM EDT Office Visit [facility] [address] [facility], 2nd [place] [address] Corrina Ariza, UNDERWRITER MORTGAGE LOAN [address] [facility] [address] [place] [address] documented as of this encounter Procedures Procedure Name Priority Date/Time Associated Diagnosis Comments MAMMOGRAPHY OUTSIDE IMAGES UPLOAD 12/13/2019 2:03 PM EDT documented in this encounter Results * Mammography Outside Images Upload (12/13/2019 2:03 PM EDT) Anatomical Region Laterality Modality Mammography 12/13/2019 2:03 PM EDT Sarah Oliver MD IMG BI PROCEDURES Final Result documented in this encounter Visit Diagnoses Not on filedocumented in this encounter Care Teams Hand Flesher Relationship Specialty Start Date End Date Maxx Matos MD [address] [place], [place] [id number] PCP - General 10/23/20 11/14/21 Nola Fay UNDERWRITER MORTGAGE LOAN [address] [place] [address] PCP - General 11/15/21 07/16/23 Maribel Ambriz, UNDERWRITER MORTGAGE LOAN [address] [place] [address] PCP - General 07/17/23 documented as of this encounter
--- OUTSIDE RECORDS SUMMARY | 2024-11-18 08:33 | XMS_ITS | Encounter Summary ---
Author Organization Healthcare Address [address] [place] [address] Care Team Providers Care Digital Librarian Name Role Phone Maxx Matos MD Primary Care Provider [phone] Nola Fay MANAGER OCCUPATIONAL Primary Care Provider [phone] Maribel Ambriz MANAGER OCCUPATIONAL Primary Care Provider [phone] Encounter Details Date Type Department Care Team (Late Contact Info) Description 06/18/2020 Orders Only External Location [address] [place] [phone] Sarah Oliver MD [address] [place] [address] Social History Tobacco Use Types Packs/Day Years [...] Description 12/20/2024 11:00 AM EDT Office Visit [facility] [address] [place] [address] Sujata Cullen APRN [address] [phone] 08/18/2025 10:00 AM EDT [facility]ointment [facility] [address] [address] 08/18/2025 11:00 AM EDT Office Visit [facility] [address] [facility], 2nd [place] [address] Corrina Ariza, MANAGER OCCUPATIONAL [address] [facility] [address] [place] [address] documented as of this encounter Procedures Procedure Name Priority Date/Time Associated Diagnosis Comments MAMMOGRAPHY OUTSIDE IMAGES UPLOAD 06/18/2020 1:38 PM EST documented in this encounter Results * Mammography Outside Images Upload (06/18/2020 1:38 PM EST) Anatomical Region Laterality Modality Mammography 06/18/2020 1:38 PM EST Sarah Oliver MD IMG BI PROCEDURES Final Result documented in this encounter Visit Diagnoses Not on filedocumented in this encounter Care Teams Digital Librarian Relationship Specialty Start Date End Date Maxx Matos MD [address] [place], [place] [phone] PCP - General 10/23/20 11/14/21 Nola Fay APRN [address] [place] [address] PCP - General 11/15/21 07/16/23 Maribel Ambriz, MANAGER OCCUPATIONAL [address] [place] [address] PCP - General 07/17/23 documented as of this encounter
--- OUTSIDE RECORDS SUMMARY | 2024-11-18 08:33 | XMS_ITS | Encounter Summary ---
Author Organization Healthcare Address [address] [place] [address] Care Team Providers Care Ticket Speculator Name Role Phone Maxx Matos MD Primary Care Provider [phone] Nola Fay APRN Primary Care Provider [phone] Maribel Ambriz SULFIDE HEAD OPERATOR Primary Care Provider [phone] Encounter Details Date Type Department Care Team (Late Contact Info) Description 10/08/2013 Orders Only External Location [address] [place] [phone] Provider, External Social History Tobacco Use Types [...] Description 12/20/2024 11:00 AM EDT Office Visit [facility] [address] [place] [address] Sujata Cullen APRN [address] [address] 08/18/2025 10:00 AM EDT Appointment [facility] [address] [place] [address] 08/18/2025 11:00 AM EDT Office Visit [facility] [address] [facility], 2nd [place] [address] Corrina Ariza, SULFIDE HEAD OPERATOR [address] [facility] Yesenia Da[address]le [facility] 134 [place] [address] documented as of this encounter Procedures Procedure Name Priority Date/Time Associated Diagnosis Comments US BREAST OUTSIDE IMAGES 10/08/2013 8:08 AM EDT documented in this encounter Results * US BREAST OUTSIDE IMAGES (10/08/2013 8:08 AM EDT) Anatomical Region Laterality Modality Breast Mammography 10/08/2013 8:08 AM EDT us External Provider IMG BI PROCEDURES Final Result documented in this encounter Visit Diagnoses Not on filedocumented in this encounter Care Teams Ticket Speculator Relationship Specialty Start Date End Date Maxx Matos MD [address] [place] [address] PCP - General 10/23/20 11/14/21 Nola Fay APRN [address] [place] [address] PCP - General 11/15/21 07/16/23 Maribel Ambriz APRN [address] [place] [address] PCP - General 07/17/23 documented as of this encounter
--- OUTSIDE RECORDS SUMMARY | 2024-11-18 08:33 | XMS_ITS | Encounter Summary ---
Author Organization Healthcare Address [address] [place] [address] Care Team Providers Care Shoemaking Cutter Name Role Phone Maxx Matos MD Primary Care Provider [phone] Nola Fay APRN Primary Care Provider [phone] Maribel Ambriz AIR TUBE RELEASER Primary Care Provider [phone] Encounter Details Date Type Department Care Team (Late Contact Info) Description 11/15/2018 Orders Only External Location [address] [place] [phone] Provider, External Social History Tobacco Use Types [...] Description 12/20/2024 11:00 AM EDT Office Visit [facility] [address] [place] [address] Sujata Cullen APRN [address] [address] 08/18/2025 10:00 AM EDT Appointment [facility] [address] [place] [address] 08/18/2025 11:00 AM EDT Office Visit [facility] [address] [facility], 2nd [place] [address] Corrina Ariza, AIR TUBE RELEASER [address] [facility] Yesenia Daigle [facility] 134 [place] [address] documented as of this encounter Procedures Procedure Name Priority Date/Time Associated Diagnosis Comments MAMMOGRAPHY OUTSIDE IMAGES UPLOAD 11/15/2018 8:34 AM EDT documented in this encounter Results * Mammography Outside Images Upload (11/15/2018 8:34 AM EDT) Anatomical Region Laterality Modality Mammography 11/15/2018 8:34 AM EDT us External Provider IMG BI PROCEDURES Final Result documented in this encounter Visit Diagnoses Not on filedocumented in this encounter Care Teams Shoemaking Cutter Relationship Specialty Start Date End Date Maxx Matos MD [address] [place] [address] PCP - General 10/23/20 11/14/21 Nola Fay, AIR TUBE RELEASER [address] [place] [address] PCP - General 11/15/21 07/16/23 Maribel Ambriz, AIR TUBE RELEASER [address] [place] [address] PCP - General 07/17/23 documented as of this encounter
--- OUTSIDE RECORDS SUMMARY | 2024-11-18 08:33 | XMS_ITS | Encounter Summary ---
Author Organization Healthcare Address [address] [place] [address] Care Team Providers Care Engine Lathe Set Up Operator Name Role Phone Maxx Matos MD Primary Care Provider [phone] Nola Fay APRN Primary Care Provider [phone] Maribel Ambriz INFORMATICS CONSULTANT Primary Care Provider Encounter Details Date Type Department Care Team (Late Contact Info) Description 11/08/2016 Orders Only External Location [address] [place] [phone] Maxx Matos MD [address] [place] [address] Social History Tobacco Use Types [...] Description 12/20/2024 11:00 AM EDT Office Visit [facility] [address] [place] [address] Sujata Cullen APRN [address] [address] 08/18/2025 10:00 AM EDT Appointment [facility] [place] [address] Yesenia Daigle [address] [place] [address] 08/18/2025 11:00 AM EDT Office [facility] Center [address] [facility], 2nd [place] [address] Corrina Ariza, INFORMATICS CONSULTANT [address] [facility] Yesenia Daigle [facility] 134 [place] [address] documented as of this encounter Procedures Procedure Name Priority Date/Time Associated Diagnosis Comments MAMMOGRAPHY OUTSIDE IMAGES UPLOAD 11/08/2016 9:21 AM EDT documented in this encounter Results * Mammography Outside Images Upload (11/08/2016 9:21 AM EDT) Anatomical Region Laterality Modality Mammography 11/08/2016 9:21 AM EDT us Maxx Matos MD IMG BI PROCEDURES Final Resul t documented in this encounter Visit Diagnoses Not on filedocumented in this encounter Care Teams Engine Lathe Set Up Operator Relationship Specialty Start Date End Date Maxx Matos MD [address] [place] [address] PCP - General 10/23/20 11/14/21 Nola Fay APRN [address] [place] [address] PCP - General 11/15/21 07/16/23 Maribel Ambriz, INFORMATICS CONSULTANT [address] [place] [address] PCP - General 07/17/23 documented as of this encounter
--- OUTSIDE RECORDS SUMMARY | 2024-11-18 08:33 | XMS_ITS | Encounter Summary ---
Author Organization Healthcare Address [address] [place] [address] Care Team Providers Care Upholstery Instructor Name Role Phone Maxx Matos MD Primary Care Provider [phone] Nola Fay APRN Primary Care Provider [phone] Maribel Ambriz ASSOCIATE BUSINESS ANALYST Primary Care Provider [phone] Encounter Details Date Type Department Care Team (Late Contact Info) Description 11/13/2017 Orders Only External Location [address] [place] [phone] Provider, External Social History Tobacco Use Types [...] Description 12/20/2024 11:00 AM EDT Office Visit [facility] [address] [place] [address] Sujata Cullen APRN [address] [address] 08/18/2025 10:00 AM EDT Appointment [facility] [address] 800 [place] [address] 08/18/2025 11:00 AM EDT [facility] Visit [facility] [address] [facility], 2nd [place] [address] Corrina Ariza, ASSOCIATE BUSINESS ANALYST [address] [facility] Yesenia Daigle [facility] 134 [place] [address] documented as of this encounter Procedures Procedure Name Priority Date/Time Associated Diagnosis Comments MAMMOGRAPHY OUTSIDE IMAGES UPLOAD 11/13/2017 9:37 AM EDT documented in this encounter Results * Mammography Outside Images Upload (11/13/2017 9:37 AM EDT) Anatomical Region Laterality Modality Mammography 11/13/2017 9:37 AM EDT us External Provider IMG BI PROCEDURES Final Result documented in this encounter Visit Diagnoses Not on filedocumented in this encounter Care Teams Upholstery Instructor Relationship Specialty Start Date End Date Maxx Matos MD [address] [place] [address] PCP - General 10/23/20 11/14/21 Nola Fay, ASSOCIATE BUSINESS ANALYST [address] [place] [address] PCP - General 11/15/21 07/16/23 Maribel Ambriz, ASSOCIATE BUSINESS ANALYST [address] [place] [address] PCP - General 07/17/23 documented as of this encounter
--- OUTSIDE RECORDS SUMMARY | 2024-11-18 08:33 | XMS_ITS | Encounter Summary ---
Author Organization Healthcare Address [address] [place] [address] Care Team Providers Care Animal Husbandry Professor Name Role Phone Maxx Matos MD Primary Care Provider [phone] Nola Fay APRN Primary Care Provider [phone] Maribel Ambriz RESTAURANT AND BAR MANAGER Primary Care Provider [phone] Encounter Details Date Type Department Care Team (Late Contact Info) Description 10/28/2014 Orders Only External Location [address] [place] [phone] Provider, External Social History Tobacco Use Types [...] Description 12/20/2024 11:00 AM EDT [facility] [address] [place] [address] Sujata Cullen APRN [address] [address] 08/18/2025 10:00 AM EDT [facility]ointment [facility] [address] [place] [address] 08/18/2025 11:00 AM EDT Office Visit [facility] [address] [facility], 2nd [place] [address] Corrina Ariza, RESTAURANT AND BAR MANAGER 800 [facility] Yesenia Daigle [facility] 134 [place] [address] documented as of this encounter Procedures Procedure Name Priority Date/Time Associated Diagnosis Comments MAMMOGRAPHY OUTSIDE IMAGES UPLOAD 10/28/2014 11:09 AM EDT documented in this encounter Results * Mammography Outside Images Upload (10/28/2014 11:09 AM EDT) Anatomical Region Laterality Modality Mammography 10/28/2014 11:0 9 AM EDT us External Provider IMG BI PROCEDURES Final Result documented in this encounter Visit Diagnoses Not on filedocumented in this encounter Care Teams Animal Husbandry Professor Relationship Specialty Start Date End Date Maxx Matos MD [address] [place] [address] PCP - General 10/23/20 11/14/21 Nola Fay, RESTAURANT AND BAR MANAGER [address] [place] [address] PCP - General 11/15/21 07/16/23 Maribel Ambriz, RESTAURANT AND BAR MANAGER [address] [place] [address] PCP - General 07/17/23 documented as of this encounter
--- OUTSIDE RECORDS SUMMARY | 2024-11-18 08:33 | XMS_ITS | Encounter Summary ---
Author Organization Healthcare Address [address] [place] [address] Care Team Providers Care Chief Vendor Quality Name Role Phone Maxx Matos MD Primary Care Provider [phone] Nola Fay APRN Primary Care Provider [phone] Maribel Ambriz LEGAL SUMMER INTERN Primary Care Provider [phone] Encounter Details Date Type Department Care Team (Late Contact Info) Description 11/25/2019 Orders Only External Location [address] [place] [phone] Provider, External Social History Tobacco Use Types [...] Description 12/20/2024 11:00 AM EDT Office Visit [facility] [address] [place] [address] Sujata Cullen APRN [address] [address] 08/18/2025 10:00 AM EDT [facility]ointment [facility] [address] [place] [address] 08/18/2025 11:00 AM EDT Office Visit [facility] [address] [facility], 2nd [place] [address] Corrina Ariza, LEGAL SUMMER INTERN 800 [facility] Yesenia Daigle [facility] 134 [place] [address] documented as of this encounter Procedures Procedure Name Priority Date/Time Associated Diagnosis Comments MAMMOGRAPHY OUTSIDE IMAGES UPLOAD 11/25/2019 9:42 AM EDT documented in this encounter Results * Mammography Outside Images Upload (11/25/2019 9:42 AM EDT) Anatomical Region Laterality Modality Mammography 11/25/2019 9:42 AM EDT us External Provider IMG BI PROCEDURES Final Result documented in this encounter Visit Diagnoses Not on filedocumented in this encounter Care Teams Chief Vendor Quality Relationship Specialty Start Date End Date Maxx Matos MD [address] [place] [address] PCP - General 10/23/20 11/14/21 Nola Fay, LEGAL SUMMER INTERN [address] [place] [address] PCP - General 11/15/21 07/16/23 Maribel Ambriz APRN [address] [place] [address] PCP - General 07/17/23 documented as of this encounter
--- OUTSIDE RECORDS SUMMARY | 2024-11-18 08:33 | XMS_ITS | Encounter Summary ---
Author Organization Healthcare Address [address] [place] [address] Care Team Providers Care Photographic Machine Operator Name Role Phone Maxx Matos MD Primary Care Provider [phone] Nola Fay APRN Primary Care Provider [phone] Maribel Ambriz SPENT GRAIN DRYER Primary Care Provider [phone] Encounter Details Date Type Department Care Team (Late Contact Info) Description 10/13/2015 Orders Only External Location [address] [place] [phone] Provider, External Social History Tobacco Use Types [...] Visit [facility] [address] [place] [address] Sujata Cullen APRN [address] [address] 08/18/2025 10:00 AM EDT Appointment [facility] [address] 800 [place] [address] 08/18/2025 11:00 AM EDT [facility] Visit [facility] 7[address] [facility], 2nd [place] [address] Corrina Ariza, SPENT GRAIN DRYER 800 [facility] Yesenia Daigle [facility] 134 [place] [address] documented as of this encounter Procedures Procedure Name Priority Date/Time Associated Diagnosis Comments MAMMOGRAPHY OUTSIDE IMAGES UPLOAD 10/13/2015 8:25 AM EDT documented in this encounter Results * Mammography Outside Images Upload (10/13/2015 8:25 AM EDT) Anatomical Region Laterality Modality Mammography 10/13/2015 8:25 AM EDT us External Provider IMG BI PROCEDURES Final Result documented in this encounter Visit Diagnoses Not on filedocumented in this encounter Care Teams Photographic Machine Operator Relationship Specialty Start Date End Date Maxx Matos MD [address] [place] [address] PCP - General 10/23/20 11/14/21 Nola Fay, SPENT GRAIN DRYER [address] [place] [address] PCP - General 11/15/21 07/16/23 Maribel Ambriz, SPENT GRAIN DRYER [address] [place] [address] PCP - General 07/17/23 documented as of this encounter
--- OUTSIDE RECORDS SUMMARY | 2024-11-18 08:33 | XMS_ITS | Encounter Summary ---
Author Organization Healthcare Address [address] [place] [address] Care Team Providers Care Assembler Installer Structures Name Role Phone Nola Fay APRN Primary Care Provider [phone] Maribel Ambriz TUBE ROLLER Primary Care Provider [phone] Encounter Details Date Type Department Care Team (Late st Contact Info) Description 12/21/2021 Orders Only External Location [address] [place] [phone] Provider, External Social History Tobacco Use Types [...] [address] [place] [address] Sujata Cullen, TUBE ROLLER [address] [address] 08/18/2025 10:00 AM EDT [facility]ointment [facility] [address] [place] [address] 08/18/2025 11:00 AM EDT [facility] Visit [facility] [address] [facility], 2nd [place] [address] Corrina Ariza, TUBE ROLLER [address] [facility] [address] [place] [address] documented as of this encounter Procedures Procedure Name Priority Date/Time Associated Diagnosis Comments MAMMOGRAPHY OUTSIDE IMAGES UPLOAD 12/21/2021 1:12 PM EDT documented in this encounter Results * Mammography Outside Images Upload (12/21/2021 1:12 PM EDT) Anatomical Region Laterality Modality Mammography 12/21/2021 1:12 PM EDT us External Provider IMG BI PROCEDURES Final Result documented in this encounter Visit Diagnoses Not on filedocumented in this encounter Care Teams Assembler Installer Structures Relationship Specialty Start Date End Date Nola Fay, TUBE ROLLER [address] [place] [address] PCP - General 11/15/21 07/16/23 Maribel Ambriz, TUBE ROLLER [address] [place] [address] PCP - General 07/17/23 documented as of this encounter
[2024-11-18] MEDS: BARIUM SULFATE(LIQUID E-Z-PAQUE);355ML BOTTLE 355 ML PO (09:07)
[2024-11-18] MEDS: BARIUM SULFATE (E-Z-HD 340GM);135ML BOTTLE 135 ML PO (09:07)
== END 2024-11-18 23:59 | disposition home or self-care (01) ==
LOC: RAD 08:27
PROVIDERS: PCP Nurse Practitioner Family; Visit Provider Nurse Practitioner
DX: K21.9 Gastro-esophageal reflux disease without esophagitis (principal); R93.3 Abnormal findings on diagnostic imaging of other parts of digestive tract; R13.10 Dysphagia, unspecified; K14.6 Glossodynia
CPT/HCPCS: 74220

== ENCOUNTER 2024-11-27 10:12 | Outpatient (CLI) | payer MEDICARE, SELFPAY ==
--- OUTSIDE RECORDS SUMMARY | 2024-11-27 10:18 | XMS_ITS | Encounter Summary ---
Author Organization Healthcare Address [address] [place] [address] Care Team Providers Care Melting Supervisor Name Role Phone Nola Fay APRN Primary Care Provider [phone] Maribel Ambriz BURRING MACHINE OPERATOR Primary Care Provider [phone] Encounter Details Date Type Department Care Team (Late st Contact Info) Description 01/05/2022 Orders Only External Location [address] [place] [phone] Provider, External Social History Tobacco Use Types [...] Description 12/20/2024 11:00 AM EDT Office Visit [facility] [address] [place] [address] Sujata Cullen, BURRING MACHINE OPERATOR [address] [address] 08/18/2025 10:00 AM EDT [facility]ointment [facility] [address] [place] [address] 08/18/2025 11:00 AM EDT [facility] Visit [facility] 740 [facility], 2nd [place] [address] Corrina Ariza, BURRING MACHINE OPERATOR [address] [place] [address] documented as of this encounter Procedures Procedure [...] on filedocumented in this encounter Care Teams Melting Supervisor Relationship Specialty Start Date End Date Nola Fay, BURRING MACHINE OPERATOR [address] [place] [address] PCP - General 11/15/21 07/16/23 Maribel Ambriz, BURRING MACHINE OPERATOR [address] [place] [address] PCP - General 07/17/23 documented as of this encounter
--- OUTSIDE RECORDS SUMMARY | 2024-11-27 10:18 | XMS_ITS | Encounter Summary ---
Author Organization Healthcare Address [address] [place] [address] Care Team Providers Care Internal Controls Analyst Name Role Phone Nola Fay APRN Primary Care Provider [phone] Maribel Ambriz APRN Primary Care Provider [phone] Encounter Details Date Type Department Care Team (Late Contact Info) Description 01/21/2022 Orders Only External Location [address] [place] [phone] Sarah Oliver MD [address] [place] [address] Social History Tobacco Use Types Packs/Day Years [...] Description 12/20/2024 11:00 AM EDT Office Visit [facility] [address] [place] [address] Sujata Cullen APRN [address] [phone] 08/18/2025 10:00 AM EDT Appointment [facility] [place] [address] [address] [place] [address] 08/18/2025 11:00 AM EDT Office Visit [facility] 740 [facility], 2nd [place] [address] Corrina Ariza, PAINTER AND DECORATOR APPRENTICE 800 [facility] [address] [place] [address] documented as of this encounter [...] on filedocumented in this encounter Care Teams Internal Controls Analyst Relationship Specialty Start Date End Date Nola Fay, PAINTER AND DECORATOR APPRENTICE [address] [place] [address] PCP - General 11/15/21 07/16/23 Maribel Ambriz, PAINTER AND DECORATOR APPRENTICE [address] [place] [address] PCP - General 07/17/23 documented as of this encounter
--- OUTSIDE RECORDS SUMMARY | 2024-11-27 10:18 | XMS_ITS | Encounter Summary ---
Author Organization Healthcare Address [address] [place] [address] Care Team Providers Care Hot Roller Name Role Phone Maxx Matos MD Primary Care Provider Nola Fay CENTERLESS GRINDER OPERATOR Primary Care Provider [phone] Maribel Ambriz CENTERLESS GRINDER OPERATOR Primary Care Provider [phone] Encounter Details Date Type Department Care Team (Late Contact Info) Description 12/13/2019 Orders Only External Location [address] [place] [phone] Sarah Oliver MD [address] [place] [address] Social History Tobacco Use Types Packs/Day Years [...] 12/20/2024 11:00 AM EDT Office Visit [facility] [address] [place] [address] Sujata Cullen APRN [address] [address] 08/18/2025 10:00 AM EDT Appointment [facility] [address] [address] 08/18/2025 11:00 AM EDT Office Visit [facility] [address] [facility], 2nd [place] [address] Corrina Ariza, CENTERLESS GRINDER OPERATOR [address] [facility] Yesenia Daigle [address] [place] [address] documented as of this encounter [...] on filedocumented in this encounter Care Teams Hot Roller Relationship Specialty Start Date End Date Maxx Matos MD [address] [place] [address] PCP - General 10/23/20 11/14/21 Nola Fay CENTERLESS GRINDER OPERATOR [address] [place] [address] PCP - General 11/15/21 07/16/23 Maribel Ambriz, CENTERLESS GRINDER OPERATOR [address] [place] [address] PCP - General 07/17/23 documented as of this encounter
--- OUTSIDE RECORDS SUMMARY | 2024-11-27 10:18 | XMS_ITS | Encounter Summary ---
Author Organization Healthcare Address [address] [place] [address] Care Team Providers Care Variety Lathe Operator Name Role Phone Maxx Matos MD Primary Care Provider [phone] Nola Fay MEMBER OF TECHNICAL STAFF Primary Care Provider [phone] Maribel Ambriz MEMBER OF TECHNICAL STAFF Primary Care Provider [phone] Encounter Details Date Type Department Care Team (Late st Contact Info) Description 12/01/2020 Orders Only External Location 800 [place] [address] Sarah Oliver MD [address] [place] [address] Social History Tobacco Use Types Packs/Day Years [...] EDT Office Visit [facility] [address] [place] [address] Sujata Cullen, MEMBER OF TECHNICAL STAFF [address] [address] 08/18/2025 10:00 AM EDT [facility]ointment [facility] Rohit Daigle Building 800 [place] [address] 08/18/2025 11:00 AM EDT [facility] [address], 2nd [place] [address] Corrina Ariza, MEMBER OF TECHNICAL STAFF 800 [facility] Yesenia Daigle d[address] [place] [address] documented as of this encounter [...] on filedocumented in this encounter Care Teams Variety Lathe Operator Relationship Specialty Start Date End Date Maxx Matos MD [address] [place] [address] PCP - General 10/23/20 11/14/21 Nola Fay APRN [address] [place] [address] PCP - General 11/15/21 07/16/23 Maribel Ambriz APRN [address] [place] [address] PCP - General 07/17/23 documented as of this encounter
--- OUTSIDE RECORDS SUMMARY | 2024-11-27 10:18 | XMS_ITS | Encounter Summary ---
Author Organization Healthcare Address [address] [place] [address] Care Team Providers Care Reed Man Name Role Phone Maxx Matos MD Primary Care Provider [phone] Nola Fay APRN Primary Care Provider [phone] Maribel Ambriz AIRWAY CONTROLLER Primary Care Provider [phone] Encounter Details Date Type Department Care Team (Late Contact Info) Description 09/03/2012 Orders Only External Location [address] [place] [phone] Maxx Matos MD [address] [place] [address] Social History Tobacco Use Types Packs/Day [...] Description 12/20/2024 11:00 AM EDT Office Visit [facility] [address] [place] [address] Sujata Cullen APRN [address] [address] 08/18/2025 10:00 AM EDT Appointment [facility] [place] [address] Yesenia Daigle [address] [place] [address] 08/18/2025 11:00 AM EDT Office Visit [facility] 740 [facility], 2nd [place] [address] Corrina Ariza, AIRWAY CONTROLLER 800 [facility] Yesenia Daigle [facility] 134 [place] [address] documented as of this encounter [...] on filedocumented in this encounter Care Teams Reed Man Relationship Specialty Start Date End Date Maxx Matos MD [address] [place] [address] PCP - General 10/23/20 11/14/21 Nola Fay APRN [address] [place] [address] PCP - General 11/15/21 07/16/23 Maribel Ambriz APRN [address] [place] [address] PCP - General 07/17/23 documented as of this encounter
--- OUTSIDE RECORDS SUMMARY | 2024-11-27 10:18 | XMS_ITS | Clinical Summary ---
Author Organization [facility] Address [address] [place] [address] Care Team Providers Care Rn Imaging Name Role Phone Maribel Ambriz APRN Primary Care Provider [phone] Allergies Active Allergy Reactions Criticality Noted Date [...] MG capsule 02/13/20 24 Active nystatin (Mycostatin) 101360 UNIT/ML suspension 02/13/20 24 Active levocetirizine (Xyzal) [...] Brother Kris CAD (cor onary artery disease), [place] coronary artery Diabetes Brother Kris Heart disease [...] Upcoming Encounters Date Type Department Care Team ([facility] st Contact Info) Description 12/20/2024 11:00 AM EDT Office Visit [facility] [address] [place] [address] Sujata Cullen, MANAGER MEDICARE MARKETING [address] [facility] [address] [place] [address] 08/18/2025 10:00 AM EDT Appointment [facility] [place] [address] Yesenia [facility] 800 [place] [address] 08/18/2025 11:00 AM EDT Office Visit [facility] 7[address] [facility], 2nd [place] [address] Corrina Ariza, MANAGER MEDICARE MARKETING 800 [facility] 134 [place] [address] Health Maintenance Due Date Last Done Comments [facility]-Bone Density Scan 1950 [facility]-Depression Screening 1950 [facility]-Hepatitis C Screening 1950 [facility]-Medicare Annual Wellness (AWV) 1950 [facility]-Infant/Child/Adol SDOH Screenings 1950 Diabetes: Dental Exam 1960 [...] series) 2010 [facility]-Diabetes: Hemoglobin A1C 12/12/2019 06/14/2019 [id number] Vaccine ( season) 2024 07/21/2021, 09/10/2020, 08/13/2020 [...] this topic Medical Devices Implanted Type Area Lens Grinder Rough Device Identifier Shelf Expiration Date Model / Serial / Lot Sonal Rock [employer] Joycelyniva Std - [id number] Implanted:Qty: 1 on 08/10/2023 by Lien Arana MD at [facility] Left: Breast [id number] -[id number] / / Procedures Procedure [...] 07/17/2023 Mammography Breast Diagnostic Tomosynthesis Bilateral at [facility] 08/07/2023 Mammography Breast Post Biopsy Clip Left at [facility] 08/10/2023 Mammography Stereotactic Breast Biopsy Left at [facility] 08/10/2023 Mammography Breast Post Biopsy Clip Left at [facility] 02/16/2024 Mammography Breast Diagnostic Tomosynthesis Left at [facility] BREAST COMPOSITION: There are scattered areas of [...] <6.0% Children and Adolescents <7.5% . Source: [place] [employer]. Standards of medical care in diabetes, 2017. Diabetes Care.2017:40 (suppl 1):S1-S135. . HbA1c assay performed by an ion-exchange chromatography method that is certified traceable to the DCCT. 06/14/2019 3:55 AM EST 06/14/2019 4:15 AM EST Linda Pereyra APRN LAB BLOOD ORDERABLES Final Res ult [employer] from Last 3 Months or Most Recently Relevant to Health Maintenance Insurance [facility] MEDICARE Care Teams Rn Imaging Relationship Specialty Start Date End Date Maribel Ambriz APRN [address] [place] [address] PCP - General 07/17/23
--- OUTSIDE RECORDS SUMMARY | 2024-11-27 10:18 | XMS_ITS | Encounter Summary ---
Author Organization Healthcare Address [address] [place] [address] Care Team Providers Care Violin Teacher Name Role Phone Maxx Matos MD Primary Care Provider [phone] Nola Fay APRN Primary Care Provider [phone] Maribel Ambriz SUPERVISOR ROVING Primary Care Provider [phone] Encounter Details Date Type Department Care Team (Late Contact Info) Description 10/08/2013 Orders Only External Location [address] [place] [phone] Provider, External Social History Tobacco Use Types [...] Description 12/20/2024 11:00 AM EDT Office Visit [facility] [address] [place] [address] Sujata Cullen APRN [address] [address] 08/18/2025 10:00 AM EDT Appointment [facility] [address] 800 [place] [address] 08/18/2025 11:00 AM EDT [facility] [address] [facility], 2nd [place] [address] Corrina Ariza, SUPERVISOR ROVING [address] [facility] Yesenia Daigle [facility] Ajit [address] [place] [address] documented as of this encounter Procedures Procedure [...] on filedocumented in this encounter Care Teams Violin Teacher Relationship Specialty Start Date End Date Maxx Matos MD [address] [place] [address] PCP - General 10/23/20 11/14/21 Nola Fay, SUPERVISOR ROVING [address] [place] [address] PCP - General 11/15/21 07/16/23 Maribel Ambriz APRN [address] [place] [address] PCP - General 07/17/23 documented as of this encounter
--- OUTSIDE RECORDS SUMMARY | 2024-11-27 10:18 | XMS_ITS | Encounter Summary ---
Author Organization Healthcare Address [address] [place] [address] Care Team Providers Care Entry Level Marketing Representative Name Role Phone Maxx Matos MD Primary Care Provider Nola Fay REPAIR ARMATURE WINDER HELPER Primary Care Provider [phone] Maribel Ambriz REPAIR ARMATURE WINDER HELPER Primary Care Provider [phone] Encounter Details Date Type Department Care Team (Late Contact Info) Description 06/18/2020 Orders Only External Location [address] [place] [phone] Sarah Oliver MD [address] [place] [address] Social History Tobacco Use Types Packs/Day Years [...] Description 12/20/2024 11:00 AM EDT Office Visit [facility] [address] [place] [address] Sujata Cullen APRN [address] [phone] 08/18/2025 10:00 AM EDT Appointment [facility] [address] [address] 08/18/2025 11:00 AM EDT Office Visit [facility] 740 [facility], 2nd [place] [address] Corrina Ariza, REPAIR ARMATURE WINDER HELPER 800 [facility] Yesenia Daigle [address] [place] [address] documented as of this encounter Procedures Procedure Name Priority Date/Time Associated Diagnosis Comments MAMMOGRAPHY OUTSIDE IMAGES UPLOAD 06/18/2020 1:38 PM EST documented in this encounter Results * Mammography Outside Images Upload (06/18/2020 1:38 PM EST) Anatomical Region Laterality Modality Mammography 06/18/2020 1:38 PM EST Sarah Olivre MD IMG BI PROCEDURES Final Result documented in this encounter Visit Diagnoses Not on filedocumented in this encounter Care Teams Entry Level Marketing Representative Relationship Specialty Start Date End Date Maxx Matos MD [address] [place] [address] PCP - General 10/23/20 11/14/21 Nola Fay APRN [address] [place] [address] PCP - General 11/15/21 07/16/23 Maribel Ambriz, REPAIR ARMATURE WINDER HELPER [address] [place] [address] PCP - General 07/17/23 documented as of this encounter
--- OUTSIDE RECORDS SUMMARY | 2024-11-27 10:18 | XMS_ITS | Encounter Summary ---
Author Organization Healthcare Address [address] [place] [address] Care Team Providers Care Voip Network Technician Name Role Phone Maxx Matos MD Primary Care Provider [phone] Nola Fay REPAIR DEPARTMENT SUPERVISOR Primary Care Provider [phone] Maribel Ambriz REPAIR DEPARTMENT SUPERVISOR Primary Care Provider [phone] Encounter Details Date Type Department Care Team (Late Contact Info) Description 12/13/2019 Orders Only External Location [address] [place] [phone] Sarah Oliver MD [address] [place] [address] Social History Tobacco Use Types Packs/Day Years [...] Description 12/20/2024 11:00 AM EDT Office Visit [facility] [address] [place] [address] Sujata Cullen APRN [address] [address] 08/18/2025 10:00 AM EDT Appointment [facility] [address] [address] 08/18/2025 11:00 AM EDT Office Visit [facility] 740 [facility], 2nd [place] [address] Corrina Ariza, REPAIR DEPARTMENT SUPERVISOR 800 [facility] Yesenia Daigle dg [address] [place] [address] documented as of this encounter [...] on filedocumented in this encounter Care Teams Voip Network Technician Relationship Specialty Start Date End Date Maxx Matos MD [address] [place] [address] PCP - General 10/23/20 11/14/21 Nola Fay REPAIR DEPARTMENT SUPERVISOR [address] [place] [address] PCP - General 11/15/21 07/16/23 Maribel Ambriz, REPAIR DEPARTMENT SUPERVISOR [address] [place] [address] PCP - General 07/17/23 documented as of this encounter
--- OUTSIDE RECORDS SUMMARY | 2024-11-27 10:18 | XMS_ITS | Encounter Summary ---
Author Organization Healthcare Address [address] [place] [address] Care Team Providers Care Tile Erector Name Role Phone Maxx Matos MD Primary Care Provider [phone] Nola Fay APRN Primary Care Provider [phone] Maribel Ambriz GRIDDLE ATTENDANT Primary Care Provider [phone] Encounter Details Date Type Department Care Team (Late Contact Info) Description 10/08/2013 Orders Only External Location [address] [place] [phone] Provider, External Social History Tobacco Use Types [...] EDT Office Visit [facility] [address] [place] [address] Sujata Cullen APRN [address] [address] 08/18/2025 10:00 AM EDT Appointment [facility] [address] 800 [place] [address] 08/18/2025 11:00 AM EDT [facility] Visit [facility] 740 [facility], 2nd [place] [address] Corrina Ariza, GRIDDLE ATTENDANT 800 [facility] Yesenia Daigle [facility] 134 [place] [address] documented as of this encounter Procedures Procedure [...] on filedocumented in this encounter Care Teams Tile Erector Relationship Specialty Start Date End Date Maxx Matos MD [address] [place] [address] PCP - General 10/23/20 11/14/21 Nola Fay, GRIDDLE ATTENDANT [address] [place] [address] PCP - General 11/15/21 07/16/23 Maribel Ambriz APRN [address] [place] [address] PCP - General 07/17/23 documented as of this encounter
--- OUTSIDE RECORDS SUMMARY | 2024-11-27 10:18 | XMS_ITS | Encounter Summary ---
Author Organization Healthcare Address [address] [place] [address] Care Team Providers Care Industrial Truck Operator Name Role Phone Maxx Matos MD Primary Care Provider [phone] Nola Fay APRN Primary Care Provider [phone] Maribel Ambriz WAREHOUSE PACKAGING SUPERVISOR Primary Care Provider [phone] Encounter Details Date Type Department Care Team (Late Contact Info) Description 10/28/2015 Orders Only External Location [address] [place] [phone] Provider, External Social History Tobacco Use Types [...] 12/20/2024 11:00 AM EDT Office Visit [facility] [address] [place] [address] Sujata Cullen APRN [address] [address] 08/18/2025 10:00 AM EDT Appointment [facility] [address] [place] [address] 08/18/2025 11:00 AM EDT [facility] Visit [facility] 740 [facility], 2nd [place] [address] Corrina Ariza, WAREHOUSE PACKAGING SUPERVISOR 800 [facility] Yesenia Daigle [facility] Aj[address] [place] [address] documented as of this encounter Procedures Procedure [...] on filedocumented in this encounter Care Teams Industrial Truck Operator Relationship Specialty Start Date End Date Maxx Matos MD [address] [place] [address] PCP - General 10/23/20 11/14/21 Nola Fay, WAREHOUSE PACKAGING SUPERVISOR [address] [place] [address] PCP - General 11/15/21 07/16/23 Maribel Ambriz APRN [address] [place] [address] PCP - General 07/17/23 documented as of this encounter
--- OUTSIDE RECORDS SUMMARY | 2024-11-27 10:18 | XMS_ITS | Encounter Summary ---
Author Organization Healthcare Address [address] [place] [address] Care Team Providers Care Cook Helper Meat Name Role Phone Maxx Matos MD Primary Care Provider [phone] Nola Fay APRN Primary Care Provider [phone] Maribel Ambriz MINER HELPER Primary Care Provider [phone] Encounter Details Date Type Department Care Team (Late Contact Info) Description 09/09/2013 Orders Only External Location [address] [place] [phone] Maxx Matos MD [address] [place] [address] Social History Tobacco Use Types Packs/Day [...] [place] [address] Sujata Cullen APRN [address] [address] 08/18/2025 10:00 AM EDT Appointment [facility] [place] [address] Yesenia Daigle [address] [place] [address] 08/18/2025 11:00 AM EDT Office Visit [facility] Center 740 [facility], 2nd [place] [address] Corrina Ariza, MINER HELPER 800 [facility] Yesenia Daigle [facility] 134 [place] [address] documented as of this encounter [...] on filedocumented in this encounter Care Teams Cook Helper Meat Relationship Specialty Start Date End Date Maxx Matos MD [address] [place] [address] PCP - General 10/23/20 11/14/21 Nola Fay APRN [address] [place] [address] PCP - General 11/15/21 07/16/23 Maribel Ambriz APRN [address] [place] [address] PCP - General 07/17/23 documented as of this encounter
--- OUTSIDE RECORDS SUMMARY | 2024-11-27 10:18 | XMS_ITS | Encounter Summary ---
Author Organization Healthcare Address [address] [place] [address] Care Team Providers Care Apparatus Engineering Technologist Name Role Phone Maxx Matos MD Primary Care Provider [phone] Nola Fay APRN Primary Care Provider [phone] Maribel Ambriz HELMET BINDER Primary Care Provider [phone] Encounter Details Date Type Department Care Team (Late Contact Info) Description 11/13/2017 Orders Only External Location [address] [place] [phone] Provider, External Social History Tobacco Use Types [...] [place] [address] Sujata Cullen APRN [address] [address] 08/18/2025 10:00 AM EDT Appointment [facility] [address] 800 [place] [address] 08/18/2025 11:00 AM EDT [facility] Visit [facility] 7[address] [facility], 2nd [place] [address] Corrina Ariza, HELMET BINDER 800 [facility] Yesenia Daigle [facility] [address] [place] [address] documented as of this encounter Procedures Procedure [...] on filedocumented in this encounter Care Teams Apparatus Engineering Technologist Relationship Specialty Start Date End Date Maxx Matos MD [address] [place] [address] PCP - General 10/23/20 11/14/21 Nola Fay, HELMET BINDER [address] [place] [address] PCP - General 11/15/21 07/16/23 Maribel Ambriz APRN [address] [place] [address] PCP - General 07/17/23 documented as of this encounter
--- OUTSIDE RECORDS SUMMARY | 2024-11-27 10:18 | XMS_ITS | Encounter Summary ---
Author Organization Healthcare Address [address] [place] [address] Care Team Providers Care Drop Wire Stringer Name Role Phone Maxx Matos MD Primary Care Provider [phone] Nola Fay APRN Primary Care Provider [phone] Maribel Ambriz UTILITY AIRCREWMAN Primary Care Provider [phone] Encounter Details Date Type Department Care Team (Late Contact Info) Description 11/15/2018 Orders Only External Location [address] [place] [phone] Provider, External Social History Tobacco Use Types [...] Description 12/20/2024 11:00 AM EDT Office Visit [facility] [address] [place] [address] Sujata Cullen APRN [address] [address] 08/18/2025 10:00 AM EDT Appointment [facility] [address] 800 [place] [address] 08/18/2025 11:00 AM EDT [facility] Visit [facility] 740 [facility], 2nd [place] [address] Corrina Ariza, UTILITY AIRCREWMAN 800 [facility] Yesenia Daigle [facility] 134 [place] [address] documented as of this encounter Procedures Procedure [...] on filedocumented in this encounter Care Teams Drop Wire Stringer Relationship Specialty Start Date End Date Maxx Matos MD [address] [place] [address] PCP - General 10/23/20 11/14/21 Nola Fay, UTILITY AIRCREWMAN [address] [place] [address] PCP - General 11/15/21 07/16/23 Maribel Ambriz, UTILITY AIRCREWMAN [address] [place] [address] PCP - General 07/17/23 documented as of this encounter
--- OUTSIDE RECORDS SUMMARY | 2024-11-27 10:18 | XMS_ITS | Encounter Summary ---
Author Organization Healthcare Address [address] [place] [address] Care Team Providers Care Cook Frozen Dessert Name Role Phone Nola Fay APRN Primary Care Provider [phone] Maribel Ambriz BENCH WORKER APPRENTICE Primary Care Provider [phone] Encounter Details Date Type Department Care Team (Late st Contact Info) Description 12/21/2021 Orders Only External Location [address] [place] [phone] Provider, External Social History Tobacco Use Types [...] Description 12/20/2024 11:00 AM EDT Office Visit [facility] [address] [place] [address] Sujata Cullen, BENCH WORKER APPRENTICE [address] [address] 08/18/2025 10:00 AM EDT Appointment [facility] [address] 800 [place] [address] 08/18/2025 11:00 AM EDT [facility] Visit [facility] 740 [facility], 2nd [place] [address] Corrina Ariza, BENCH WORKER APPRENTICE 800 [facility] Yesenia Daigle [address] [place] [address] documented as of this encounter Procedures Procedure [...] filedocumented in this encounter Care Teams Cook Frozen Dessert Relationship Specialty Start Date End Date Nola Fay, BENCH WORKER APPRENTICE [address] [place] [address] PCP - General 11/15/21 07/16/23 Maribel Ambriz, BENCH WORKER APPRENTICE [address] [place] [address] PCP - General 07/17/23 documented as of this encounter
--- OUTSIDE RECORDS SUMMARY | 2024-11-27 10:18 | XMS_ITS | Encounter Summary ---
Author Organization Healthcare Address [address] [place] [address] Care Team Providers Care Label Machine Operator Name Role Phone Maxx Matos MD Primary Care Provider [phone] Nola Fay APRN Primary Care Provider [phone] Maribel Ambriz GERIATRIC SOCIAL WORKER Primary Care Provider [phone] Encounter Details Date Type Department Care Team (Late Contact Info) Description 11/25/2019 Orders Only External Location [address] [place] [phone] Provider, External Social History Tobacco Use Types [...] Office Visit [facility] [address] [place] [address] Sujata Cullen APRN [address] [address] 08/18/2025 10:00 AM EDT Appointment [facility] [address] [place] [address] 08/18/2025 11:00 AM EDT [facility] Visit [facility] 740 [facility], 2nd [place] [address] Corrina Ariza, GERIATRIC SOCIAL WORKER 800 [facility] Yesenia Daigle [facility] 134 [place] [address] documented as of this encounter Procedures Procedure [...] on filedocumented in this encounter Care Teams Label Machine Operator Relationship Specialty Start Date End Date Maxx Matos MD [address] [place] [address] PCP - General 10/23/20 11/14/21 Nola Fay, GERIATRIC SOCIAL WORKER [address] [place] [address] PCP - General 11/15/21 07/16/23 Maribel Ambriz APRN [address] [place] [address] PCP - General 07/17/23 documented as of this encounter
--- OUTSIDE RECORDS SUMMARY | 2024-11-27 10:18 | XMS_ITS | Encounter Summary ---
Author Organization Healthcare Address [address] [place] [address] Care Team Providers Care Manager Storage Name Role Phone Maxx Matos MD Primary Care Provider [phone] Nola Fay APRN Primary Care Provider [phone] Maribel Ambriz GRAIN SCOOPER Primary Care Provider Encounter Details Date Type Department Care Team (Late Contact Info) Description 10/13/2015 Orders Only External Location [address] [place] [address] Provider, External Social History Tobacco Use Types [...] 12/20/2024 11:00 AM EDT Office Visit [facility] [address] [place] [address] Sujata Cullen APRN [address] [address] 08/18/2025 10:00 AM EDT Appointment [facility] [address] [place] [address] 08/18/2025 11:00 AM EDT Office Visit [facility] [address] [facility], 2nd [place] [address] Corrina Ariza, GRAIN SCOOPER [address] [facility] Yesenia Daigle [facility] [address] [place] [address] documented as of this encounter Procedures Procedure [...] on filedocumented in this encounter Care Teams Manager Storage Relationship Specialty Start Date End Date Maxx Matos MD [address] [place] [address] PCP - General 10/23/20 11/14/21 Nola Fay, GRAIN SCOOPER [address] [place] [address] PCP - General 11/15/21 07/16/23 Maribel Ambriz APRN [address] [place] [address] PCP - General 07/17/23 documented as of this encounter
--- OUTSIDE RECORDS SUMMARY | 2024-11-27 10:18 | XMS_ITS | Encounter Summary ---
Author Organization Healthcare Address [address] [place] [address] Care Team Providers Care Demi Chef Name Role Phone Maxx Matos MD Primary Care Provider [phone] Nola Fay APRN Primary Care Provider [phone] Maribel Ambriz TILE MOLDER HAND Primary Care Provider [phone] Encounter Details Date Type Department Care Team (Late Contact Info) Description 09/24/2013 Orders Only External Location [address] [place] [phone] Maxx Matos MD [address] [place] [address] Social History Tobacco Use Types Packs/Day [...] [place] [address] Sujata Cullen APRN [address] [address] 08/18/2025 10:00 AM EDT Appointment [facility] [place] [address] Yesenia Daigle [address] [place] [address] 08/18/2025 11:00 AM EDT Office Visit [facility] [address] [facility], 2nd [place] [address] Corrina Airza, TILE MOLDER HAND [address] [facility] Yesenia Daigle [facility] 134 [place] [address] documented as of this encounter [...] on filedocumented in this encounter Care Teams Demi Chef Relationship Specialty Start Date End Date Maxx Matos MD [address] [place] [address] PCP - General 10/23/20 11/14/21 Nola Fay APRN [address] [place] [address] PCP - General 11/15/21 07/16/23 Maribel Ambriz APRN [address] [place] [address] PCP - General 07/17/23 documented as of this encounter
--- OUTSIDE RECORDS SUMMARY | 2024-11-27 10:18 | XMS_ITS | Encounter Summary ---
Author Organization Healthcare Address [address] [place] [address] Care Team Providers Care Business Analysis Consultant Name Role Phone Maxx Matos MD Primary Care Provider [phone] Nola Fay APRN Primary Care Provider [phone] Maribel Ambriz INTERPRETATIVE DANCER Primary Care Provider [phone] Encounter Details Date Type Department Care Team (Late Contact Info) Description 10/28/2014 Orders Only External Location [address] [place] [phone] Provider, External Social History Tobacco Use Types [...] 12/20/2024 11:00 AM EDT Office Visit [facility] [address] [place] [address] Sujata Cullen APRN [address] [address] 08/18/2025 10:00 AM EDT Appointment [facility] [address] [place] [address] 08/18/2025 11:00 AM EDT Office Visit [facility] [address] [facility], 2nd [place] [address] Corrina Ariza, INTERPRETATIVE DANCER [address] [facility] Yesenia Daigle [facility] [address] [place] [address] documented as of this encounter Procedures Procedure Name Priority Date/Time Associated Diagnosis Comments MAMMOGRAPHY OUTSIDE IMAGES UPLOAD 10/28/2014 11:09 AM EDT documented in this encounter Results * Mammography Outside Images Upload (10/28/2014 11:09 AM EDT) Anatomical Region Laterality Modality Mammography 10/28/2014 11:0 9 AM EDT External Provider IMG BI PROCEDURES Final Result documented in this encounter Visit Diagnoses Not on filedocumented in this encounter Care Teams Business Analysis Consultant Relationship Specialty Start Date End Date Maxx Matos MD [address] [place] [address] PCP - General 10/23/20 11/14/21 Nola Fay, INTERPRETATIVE DANCER [address] [place] [address] PCP - General 11/15/21 07/16/23 Maribel Ambriz, INTERPRETATIVE DANCER [address] [place] [address] PCP - General 07/17/23 documented as of this encounter
--- OUTSIDE RECORDS SUMMARY | 2024-11-27 10:18 | XMS_ITS | Encounter Summary ---
Author Organization Healthcare Address [address] [place] [address] Care Team Providers Care Makeup Artistry Instructor Name Role Phone Nola Fay APRN Primary Care Provider [phone] Maribel Ambriz HR ADMINISTRATIVE ASSISTANT Primary Care Provider Encounter Details Date Type Department Care Team (Late st Contact Info) Description 01/05/2022 Orders Only External Location [address] [place] [phone] Provider, External Social History Tobacco Use Types [...] [address] [place] [address] Sujata Cullen, HR ADMINISTRATIVE ASSISTANT [address] [address] 08/18/2025 10:00 AM EDT Appointment [facility] [address] [place] [address] 08/18/2025 11:00 AM EDT Office Visit [facility] [address] [facility], 2nd [place] [address] Corrina Ariza, HR ADMINISTRATIVE ASSISTANT 800 [facility] Yesenia Daigle [address] [place] [address] documented as of this encounter Procedures Procedure [...] on filedocumented in this encounter Care Teams Makeup Artistry Instructor Relationship Specialty Start Date End Date Nola Fay, HR ADMINISTRATIVE ASSISTANT [address] [place] [address] PCP - General 11/15/21 07/16/23 Maribel Ambriz, HR ADMINISTRATIVE ASSISTANT [address] [place] [address] PCP - General 07/17/23 documented as of this encounter
--- OUTSIDE RECORDS SUMMARY | 2024-11-27 10:18 | XMS_ITS | Encounter Summary ---
Author Organization Healthcare Address [address] [place] [address] Care Team Providers Care Dress Operator Name Role Phone Maxx Matos MD Primary Care Provider [phone] Nola Fay APRN Primary Care Provider [phone] Maribel Ambriz NETWORK LIAISON Primary Care Provider [phone] Encounter Details Date Type Department Care Team (Late Contact Info) Description 11/08/2016 Orders Only External Location [address] [place] [phone] Maxx Matos MD [address] [place] [address] Social History Tobacco Use Types Packs/Day [...] Office Visit [facility] [address] [place] [address] Sujata Cullen APRN [address] [address] 08/18/2025 10:00 AM EDT Appointment [facility] [place] [address] Yesenia Daigle [address] [place] [address] 08/18/2025 11:00 AM EDT Office Visit [facility] 740 [facility], 2nd [place] [address] Corrina Ariza, NETWORK LIAISON 800 [facility] Yesenia Daigle [facility] 134 [place] [address] documented as of this encounter [...] on filedocumented in this encounter Care Teams Dress Operator Relationship Specialty Start Date End Date Maxx Matos MD [address] [place] [address] PCP - General 10/23/20 11/14/21 Nola Fay APRN [address] [place] [address] PCP - General 11/15/21 07/16/23 Maribel Ambriz APRN [address] [place] [address] PCP - General 07/17/23 documented as of this encounter
--- OUTSIDE RECORDS SUMMARY | 2024-11-27 10:18 | XMS_ITS | Encounter Summary ---
Author Organization Healthcare Address [address] [place] [address] Care Team Providers Care Critical Power Technician Name Role Phone Maxx Matos MD Primary Care Provider [phone] Nola Fay APRN Primary Care Provider [phone] Maribel Ambriz FIRE ALARM MECHANIC Primary Care Provider [phone] Encounter Details Date Type Department Care Team (Late Contact Info) Description 09/24/2013 Orders Only External Location [address] [place] [phone] Maxx Matos MD [address] [place] [address] Social History Tobacco Use Types Packs/Day [...] Description 12/20/2024 11:00 AM EDT Office Visit [facility] [address] [place] [address] Sujata Cullen APRN [address] [address] 08/18/2025 10:00 AM EDT Appointment [facility] [place] [address] Yesenia Daigle [address] [place] [address] 08/18/2025 11:00 AM EDT Office Visit [facility] 7[address] [facility], 2nd [place] [address] Corrina Ariza, FIRE ALARM MECHANIC 800 [facility] Yesenia Daigle [facility] 134 [place] [address] documented as of this encounter [...] on filedocumented in this encounter Care Teams Critical Power Technician Relationship Specialty Start Date End Date Maxx Matos MD [address] [place] [address] PCP - General 10/23/20 11/14/21 Nola Fay APRN [address] [place] [address] PCP - General 11/15/21 07/16/23 Maribel Ambriz, FIRE ALARM MECHANIC [address] [place] [address] PCP - General 07/17/23 documented as of this encounter
--- OUTSIDE RECORDS SUMMARY | 2024-11-27 10:18 | XMS_ITS | Encounter Summary ---
Author Organization Healthcare Address [address] [place] [address] Care Team Providers Care Car Pincher Name Role Phone Maxx Matos MD Primary Care Provider [phone] Nola Fay APRN Primary Care Provider [phone] Maribel Ambriz TOY PARTS FORMER SUPERVISOR Primary Care Provider [phone] Encounter Details Date Type Department Care Team (Late Contact Info) Description 10/08/2013 Orders Only External Location [address] [place] [phone] Provider, External Social History Tobacco Use Types [...] [place] [address] Sujata Cullen APRN [address] [address] 08/18/2025 10:00 AM EDT Appointment [facility] [address] [place] [address] 08/18/2025 11:00 AM EDT [facility] Visit [facility] [address] [facility], 2nd [place] [address] Corrina Ariza, TOY PARTS FORMER SUPERVISOR 800 [facility] Yesenia Daigle [facility] [address] [place] [address] documented as of this encounter Procedures Procedure [...] on filedocumented in this encounter Care Teams Car Pincher Relationship Specialty Start Date End Date Maxx Matos MD [address] [place] [address] PCP - General 10/23/20 11/14/21 Nola Fay APRN [address] [place] [address] PCP - General 11/15/21 07/16/23 Maribel Ambriz APRN [address] [place] [address] PCP - General 07/17/23 documented as of this encounter
--- OUTSIDE RECORDS SUMMARY | 2024-11-27 10:18 | XMS_ITS | Encounter Summary ---
Author Organization Healthcare Address [address] [place] [address] Care Team Providers Care Mixer And Scaler Name Role Phone Maxx Matos MD Primary Care Provider [phone] Nola Fay APRN Primary Care Provider [phone] Maribel Ambriz NUCLEAR PHYSICS TEACHER Primary Care Provider [phone] Encounter Details Date Type Department Care Team (Late Contact Info) Description 09/08/2011 Orders Only External Location [address] [place] [phone] Provider, External Social History Tobacco Use Types [...] [place] [phone] Sujata Cullen APRN [address] [address] 08/18/2025 10:00 AM EDT Appointment [facility] [address] [place] [address] 08/18/2025 11:00 AM EDT [facility] 7[address] [facility], 2nd [place] [address] Corrina Ariza, NUCLEAR PHYSICS TEACHER 800 [facility] Yesenia Daigle [facility] [address] [place] [address] documented as of this encounter Procedures Procedure [...] on filedocumented in this encounter Care Teams Mixer And Scaler Relationship Specialty Start Date End Date Maxx Matos MD [address] [place] [address] PCP - General 10/23/20 11/14/21 Nola Fay, NUCLEAR PHYSICS TEACHER [address] [place] [address] PCP - General 11/15/21 07/16/23 Maribel Ambriz APRN [address] [place] [address] PCP - General 07/17/23 documented as of this encounter
--- OUTSIDE RECORDS SUMMARY | 2024-11-27 10:18 | XMS_ITS | Data Portability ---
Author Organization [facility] - [facility] [place] [facility] Address [address] [facility] [address] [place] [address] Assessment No assessment recorded. Plan of Treatment [...] Repor t NAME: NICHOLE MORALES PATH. :ST-[id number] Copy to: Diagn osis: A) Gastr ic biops y: -Mild chron ic gastr itis. -Immu nosta in for Helic obact er pylor i: Negat merline. 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 -Foca l jorge luis t cell intes tinal metap lasia (see comme nt). Comme nt: Intes tinal metap lasia can be seen with [facility] tt's esoph nafisa, or with intes tinal [...] 14:24 Page 1 of 1 Not Available [facility] [address] [place] [address], [place], [address], 10/19/2021 14:26:02 09/29/19 22 09/28/2021 RF, esoph nafisa, w/ contr ast PO [facility] [address] [place] [address] Sidra matos Name: NICHOLE matos : 09/18/18 [...] Liz Lucero MD on 022 2:40 PM [facility] [address] [place], [address], 10/13/2021 12:10:50 10/09/19 22 07/21/2021 cardi ac monit or No observ ation record ed. [facility] (Med Record) [address], [place], [address], 10/20/2021 14:41:29 Result Notes Documentation Provider Name and Address Organization Details Recorded Time Rf, Esophagus, W/ Contrast Po : [facility] [address] [place] [address] Patient Name: NICHOLE MORALES Patient : 1950 Patient Ordering Provider: CHOCO CÁRDENAS EXAM DATE: 09/28/2021 EXAM: RF ESOPHAGUS CLINICAL INFORMATION: Difficulty swallowing. TECHNIQUE: Multiple double contrast images of various parts of the esophagus, were obtained using high-density barium suspension. This was followed by AP and lateral rapid sequence (3/sec) images of the pharynx and upper esophagus during swallowing. The study was completed by multiple prone images of the esophagus during swallowing and assessment for reflux. FINDINGS: CERVICAL ESOPHAGUS: Rapid sequence views of the upper esophagus show normal pharyngeal anatomy. No aspiration is seen. THORACO ABDOMINAL ESOPHAGUS: Esophagus is normal in outline, mucosal pattern and caliber. No stricture is noted. The 13 mm tablet passed through the esophagus but hesitated at the GE junction for a few minutes. At the GE junction, there is suggestion of a Schatzki ring. ESOPHAGEAL MOTILITY: Esophageal motility is abnormal with absent peristaltic stripping wave and secondary peristaltic waves. A few small tertiary waves are seen. ASSESSMENT FOR REFLUX: A small sliding hiatus hernia is seen. No gastroesophageal reflux was noted. IMPRESSION: 1. Appearance is of symptomatic Schatzki ring. The hesitation of the tablet at this level produced the patient's symptoms in the region of the throat. 2. 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 Interpreted By: Dickson Lucero MD O CÁRDENAS MD [address] [place] [address], [phone], [facility] 10/13/2021 12:10:50 Medical Equipment None Reported. Allergies Allergen ID Allergen Name Allergen Category Reaction Reaction Severity Criticality Documentation Date Start Date Code Code System Note Provider Name and Address Organization Details Recorded Time 209779 penicilla mine medicatio n Not available Not available Not available 09/16/2021 7975 RxNorm Rose Adam [facility] 2 14:08:13 476557 Product containin g 3-hydroxy -3-methyl glutaryl- coenzyme A reductase inhibitor (product) medicatio n Not available Not available Not available 09/16/2021 91942 009 SNOMED Rose Medina [facility] 2 14:08:27 Medications Name Sig Start Date [...] Updated DateTime 2 162.56 cm 36.2 kg/m2 29071.9 9 g 61 /min 16 /min 137 mm[Hg] 66 mm[Hg] Rose Medina [facility] 2 14:07:43 Date Recorded Body weight Heart rate Respiratory rate Systolic blood pressure Diastolic blood pressure Provider Name and Address Organization Details Last Updated DateTime 3 72527.8 8 g 70 /min 17 /min 122 mm[Hg] 52 mm[Hg] Nancy Hamilton [facility] 15:00:14 Social History Question Answer Notes LastModified by Organizat ion Details LastModified Time Tobacco Smoking Status Never Smoker [facility] 09/16/2021 14:14:34 What Is Your Relationship [...] SNOMED-CT Code Diagnosis ICD10 Code Diagnosis Note [id number] CHOCO CÁRDENAS MD GASTRO [address] [facility], [address] [place] [address] 09/16/2021 13:45:01 09/16/2021 14:42:34 Chronic idiopathic constipation 21643825 K59.04 Start miralax once dailyRecom mend daily fiber intake to keep atleast 25-30 gm fiber daily Dysphagia 69282626 R13.1 0 Will arrange barium esophagram with tabletObta in modified barium study resultsWil l need to arange EGD evaluation of dysphagia. Family his tory of cancer of colon [id number] Z80.0 Will need to arrange colonoscop y for high risk screening. Will obtain her most recent cardiology records with 2D echo prior to completing outpatient endoscopy. [id number] CHOCO CÁRDENAS MD SURGERY SCHEDULE [address] [place] [address] 10/18/2021 07:10:51 10/18/2021 07:11:19 [id number] CHOCO CÁRDENAS MD GASTRO [address] [facility], [address] [place] [address] 10/12/2022 14:48:45 10/12/2022 15:38:47 Altered bowel function 13345471 R19.4 Samples given to her to try [...] (MEDICARE REPLACEMENT/A DVANTAGE - PPO) Nichole Morales [id number] Nichole Morales 09/16/2021 1 [place] Nichole Morales [id number] Nichole Morales Notes Date Note Type Note [...] study that was abnormal completed recently thru [facility]. I do not have that record for review. She denies weight loss. She denies abdominal pain. She has chronic constipation for several years. Her last colonoscopy was completed thru [facility] about 10 years ago. She does not recall having had colon polyps. Her father had colon cancer. She did a cologaurd 3-4 years ago that was reportedly negative. Her last echo was about 2 years ago at [facility], she does not recall a having a history of CHF. CHOCO CÁRDENAS MD [address] [place] [address], [phone], [facility] 09/16/2021 14:42:51 10/12/2022 text/html Reason for [...] Has had modified barium study completed thru [facility] in past. He dysphagia symptoms seems improved. [...] 40 mg once daily. CHOCO CÁRDENAS MD [address] [place], [address], [facility] 10/12/2022 15:36:51 OBGyn Episode No OBEpisode recorded.
[2024-11-27 11:17] LABS: Chloride 100 mmol/L (98-107); Potassium 4.4 mmoL/L (3.5-5.1); Sodium 134 mmol/L (136-145)
[2024-11-27 11:20] LABS: Anion Gap 10.4 mEq/L (5-15); Blood Urea Nitrogen 30 mg/dl (7-17); Calcium 9.3 mg/dl (8.4-10.2); Carbon Dioxide 28 mmol/L (22.0-30.0); Estimated Glomerular Filt Rate 37 ml/min (>60); GFR (African American) 44 ML/MIN (>60); Glucose 154 mg/dl (74-100)
== END 2024-11-27 23:59 | disposition home or self-care (01) ==
LOC: LAB 10:13
PROVIDERS: PCP Nurse Practitioner Family; Visit Provider Physician Assistant
DX: I25.10 Atherosclerotic heart disease of native coronary artery without angina pectoris (principal); I10 Essential (primary) hypertension
CPT/HCPCS: 36415; 80048

== ENCOUNTER 2024-12-09 06:33 | Day surgery (SDC) | payer MEDICARE, SELFPAY ==
[2024-12-04 09:53] VITALS: BMI 35.4
[2024-12-09 06:53] VITALS: BP 142/68; PULSE 60; RESP 16; TEMP 36.2; O2SAT 99; BMI 35.4
[2024-12-09 07:05] VITALS: BP 126/55; PULSE 51; RESP 16; O2SAT 99
[2024-12-09] MEDS: LACTATED RINGERS 1000ML 1,000 ML 50 ML IV (07:08)
--- NOTE | 2024-12-09 07:13 | EXP.ANES.CKL ---
[facility] Disclaimer: The information contained in this section may have been updated after the patient was seen, as this information can be updated by other users. Medical History Sore throat Hospital discharge follow-up (HFpEF) heart failure with preserved ejection fraction Angina pectoris Elevated left ventricular end-diastolic pressure (LVEDP) BMS (burning mouth syndrome) Right ear pain Pressure sensation in right ear Acute kidney injury superimposed on chronic kidney disease Elevated brain natriuretic peptide (BNP) level Chest pain Other specified symptoms and signs involving the circulatory and respiratory systems Need for shingles vaccine Encounter for screening for osteoporosis BMI over 35 Renal failure Atrophic vaginitis Peroneal tendon tear Elevated liver enzymes Pneumaturia Breast pain, right Incomplete bladder emptying NSTEMI (non-ST elevated myocardial infarction) BMI 34.0-34.9,adult Neck pain Radicular pain in left arm Right-sided chest wall pain Bloating RLQ abdominal pain Acute gastroenteritis Left elbow pain Left upper arm pain Left shoulder pain Superior labrum uzojrwfy-sz-mbmesdobm (SLAP) tear of left shoulder Effusion of shoulder joint, left Traumatic tear of supraspinatus tendon of left shoulder Traumatic ecchymosis of ankle Sprain of tarsometatarsal ligament of right foot Right ankle injury Pseudomonas urinary tract infection Edema of right lower extremity High ankle sprain of right lower extremity Yeast infection of the skin bilateral groin areas Hematoma Right otitis media UTI (urinary tract infection) Vaginal yeast infection Metallic taste Thrush, oral Acute effusion of both middle ears URI (upper respiratory infection) Burping Nausea Secondary hyperparathyroidism Hoarseness Dysphagia Constipation, unspecified Abdominal pain Fatigue Neck pain on right side Urinary tract infection symptoms Pharyngitis Sinusitis Rib pain on left side Right upper quadrant pain Left breast mass removed 09/2013 H/O malignant neoplasm of breast Edema of both lower extremities Frequent falls Contusion of left upper arm Head injury Contusion of knee, left Contusion of elbow, left Skin tear of left hand without complication Dehydration, mild Kidney failure stage 3 Sinusitis Labile blood pressure Typical angina Fall Syncope Dyspnea Typical angina Gallstones Discharge from left nipple Awaiting breast MRI at requested by [facility]- Breast CA 2013, left Dizziness Chest pain Breast cancer in female Extrapyramidal disorder Restless sleeper Daytime somnolence Abnormal cardiovascular stress test Atypical angina Chest pain Angina pectoris Diastolic dysfunction 02/2018 [facility] Surgical History History of cardiac cath History of lumpectomy of left breast History of esophagogastroduodenoscopy (EGD) 12/2021, [facility] [place] H/O thumb surgery H/O tubal ligation 1980 History of colonoscopy 12/2021, [facility] [place] History of breast biopsy History of coronary artery bypass graft x 1 05/2019, Dr. Puckett Stented coronary artery 08/2018 Family History Mother , at age 68 Congestive heart failure Crohn's disease Father , at age 84 Hypertension Cancer lung and colon ca Sister Diabetes Coronary artery disease Sister Cancer breast Diabetes Brother Coronary artery disease Grandmother Cancer paternal grandmother-colon ca Other No significant family history Social History (Updated 12/09/24 @ 06:54 by Yaz Leal RN) Smoking Status: Never smoker second hand exposure: Yes alcohol intake: never counseling provided: none substance use type: denies use current occupational status: retired Travel in the last 8 weeks?: None household members: spouse housing: house marital status: number of children: 4 current occupational exposures/hazards: No caffeine: Yes do you feel safe at home: Yes victim of physical abuse: No victim of emotional abuse: No victim of sexual abuse: No would you like helpful sources: No Have you lived/traveled outside US in past 30 days?: No Contact w/someone who lives/traveled outside US past 30 days?: No Exposure to someone with infectious disease in past 14 days?: No Do you have a fever (greater than 100.4 F or 38 C)?: No Have you tested positive for COVID-19?: No Exposed to someone with COVID-19 in past 14 days?: No Do you have a sore throat?: No Do you have a cough?: No Do you have any weakness?: No Do you have any diarrhea?: No Are you experiencing any unusual bleeding?: No Do you have any muscle aches/pain?: No Do you have any abdominal pain?: No Are you experiencing loss of taste or smell?: No [facility] Anesthesia Checklist Patient Identification Patient Identification: Arm Band and Verbal (Name & ) Structural Data Admitted From: Home Planned Operative Procedure/s: EGD Consent for Planned Operative Procedure(s) Verified: Yes Verified Documents: Surgical Consent NPO Status Verified Time NPO: 00:00 Chart Verification Results Verified: ECG Additional verifications Fingerstick Blood Glucose: 120 Anesthesia Reactions: No Hx Blood Transfusions: No Blood Transfusion Reaction: No Airway Assessment Mallampati Score:: Class II C-Spine Mobility Assessed: Yes TMJ Mobility Assessed: Yes Dentition: Good Dentition Neurological Assessment Level of Consciousness: Awake, Alert and Appropriate Hx Seizures: No Numbness or tingling in extremities: No Anesthesia Plan Anesthesia Risk discussed: Yes Anesthesia Plan: Verified ASA Class: III Anesthesia Type: MAC
[2024-12-09 07:15] LABS: POC Glucose,Bedside 120 (70-110)
--- NOTE | 2024-12-09 07:31 | EXP.HP ---
History of Present Illness *Admission Date: 12/09/24 *History of present illness: Mrs. Morales is a 74-year-old female who is here for diagnostic EGD secondary to dysphagia EGD. The examination is deemed medically necessary for EGD. The patient has been seen, interviewed and examined prior to the procedure by both myself and the anesthesia provider. [facility] Disclaimer: The information contained in this section may have been updated after the patient was seen, as this information can be updated by other users. Medical History Sore throat Hospital discharge follow-up (HFpEF) heart failure with preserved ejection fraction Angina pectoris Elevated left ventricular end-diastolic pressure (LVEDP) BMS (burning mouth syndrome) Right ear pain Pressure sensation in right ear Acute kidney injury superimposed on chronic kidney disease Elevated brain natriuretic peptide (BNP) level Chest pain Other specified symptoms and signs involving the circulatory and respiratory systems Need for shingles vaccine Encounter for screening for osteoporosis BMI over 35 Renal failure Atrophic vaginitis Peroneal tendon tear Elevated liver enzymes Pneumaturia Breast pain, right Incomplete bladder emptying NSTEMI (non-ST elevated myocardial infarction) BMI 34.0-34.9,adult Neck pain Radicular pain in left arm Right-sided chest wall pain Bloating RLQ abdominal pain Acute gastroenteritis Left elbow pain Left upper arm pain Left shoulder pain Superior labrum nmqpqszm-vr-uwzhlxiet (SLAP) tear of left shoulder Effusion of shoulder joint, left Traumatic tear of supraspinatus tendon of left shoulder Traumatic ecchymosis of ankle Sprain of tarsometatarsal ligament of right foot Right ankle injury Pseudomonas urinary tract infection Edema of right lower extremity High ankle sprain of right lower extremity Yeast infection of the skin bilateral groin areas Hematoma Right otitis media UTI (urinary tract infection) Vaginal yeast infection Metallic taste Thrush, oral Acute effusion of both middle ears URI (upper respiratory infection) Burping Nausea Secondary hyperparathyroidism Hoarseness Dysphagia Constipation, unspecified Abdominal pain Fatigue Neck pain on right side Urinary tract infection symptoms Pharyngitis Sinusitis Rib pain on left side Right upper quadrant pain Left breast mass removed 09/2013 H/O malignant neoplasm of breast Edema of both lower extremities Frequent falls Contusion of left upper arm Head injury Contusion of knee, left Contusion of elbow, left Skin tear of left hand without complication Dehydration, mild Kidney failure stage 3 Sinusitis Labile blood pressure Typical angina Fall Syncope Dyspnea Typical angina Gallstones Discharge from left nipple Awaiting breast MRI at requested by [facility] Breast CA 2013, left Dizziness Chest pain Breast cancer in female Extrapyramidal disorder Restless sleeper Daytime somnolence Abnormal cardiovascular stress test Atypical angina Chest pain Angina pectoris Diastolic dysfunction 02/2018 [facility] Surgical History History of cardiac cath History of lumpectomy of left breast History of esophagogastroduodenoscopy (EGD) 12/2021, [facility], [place] H/O thumb surgery H/O tubal ligation 1980 History of colonoscopy 12/2021, [facility] [place] History of breast biopsy History of coronary artery bypass graft x 1 05/2019, Dr. Puckett Stented coronary artery 08/2018 Family History Mother , at age 68 Congestive heart failure Crohn's disease Father , at age 84 Hypertension Cancer lung and colon ca Sister Diabetes Coronary artery disease Sister Cancer breast Diabetes Brother Coronary artery disease Grandmother Cancer paternal grandmother-colon ca Other No significant family history Social History (Updated 12/09/24 @ 06:54 by Yaz Leal RN) Smoking Status: Never smoker second hand exposure: Yes alcohol intake: never counseling provided: none substance use type: denies use current occupational status: retired Travel in the last 8 weeks?: None household members: spouse housing: house marital status: number of children: 4 current occupational exposures/hazards: No caffeine: Yes do you feel safe at home: Yes victim of physical abuse: No victim of emotional abuse: No victim of sexual abuse: No would you like helpful sources: No Have you lived/traveled outside US in past 30 days?: No Contact w/someone who lives/traveled outside US past 30 days?: No Exposure to someone with infectious disease in past 14 days?: No Do you have a fever (greater than 100.4 F or 38 C)?: No Have you tested positive for COVID-19?: No Exposed to someone with COVID-19 in past 14 days?: No Do you have a sore throat?: No Do you have a cough?: No Do you have any weakness?: No Do you have any diarrhea?: No Are you experiencing any unusual bleeding?: No Do you have any muscle aches/pain?: No Do you have any abdominal pain?: No Are you experiencing loss of taste or smell?: No Other Medical History Have you received the Flu Vaccine for this season: No Have you received the Pneumonia Vaccine: Yes Review of Systems Review of Systems Review of systems (narrative): Negative *Cardiovascular Comments: Negative *Gastrointestinal Comments: Negative *Genitourinary Comments: Negative *Musculoskeletal Comments: Negative *Neurologic Comments: Negative Meds Home Medications and Allergies Home Medications ?Medication ?Instructions ?Recorded ?Confirmed ?Type milnacipran 50 mg tablet (Savella) 50 mg PO BID 02/28/23 12/04/24 History nitroglycerin 0.4 mg sublingual 0.4 mg sublingual Q5-15M PRN Chest 03/09/23 12/04/24 History tablet Pain fluticasone propionate 50 1 spray intranasal DAILYP PRN 01/09/24 12/04/24 History mcg/actuation nasal ALLERGIES spray,suspension (Allergy Relief (fluticasone)) cholecalciferol (vitamin D3) 25 25 mcg PO DAILY 03/25/24 12/04/24 History mcg (1,000 unit) capsule magnesium oxide 400 mg PO DAILY Supplement 03/25/24 12/04/24 History isosorbide mononitrate 60 mg 60 mg PO BID #180 tabs 05/20/24 12/04/24 Rx tablet,extended release 24 hr bisoprolol fumarate 5 mg tablet 5 mg PO BID #60 tabs 07/31/24 12/09/24 Rx escitalopram oxalate 20 mg tablet 20 mg PO DAILY 08/22/24 12/04/24 History ranolazine 1,000 mg 1,000 mg PO BID 08/22/24 12/04/24 History tablet,extended release,12 hr azelastine 137 mcg (0.1 %) nasal 1 spray intranasal BIDP PRN 09/05/24 12/04/24 History spray Allergy Symptoms empagliflozin 10 mg tablet 10 mg PO DAILY Diabetes #90 tabs 09/09/24 12/04/24 Rx (Jardiance) clopidogrel 75 mg tablet 75 mg PO DAILY #90 tabs 09/13/24 12/09/24 Rx pregabalin 25 mg capsule 25 mg PO HS #30 caps 09/19/24 12/04/24 Rx estradiol 0.01% (0.1 mg/gram) 1 appful vaginal DIRECTED #42.5 09/23/24 12/04/24 Rx vaginal cream grams oxybutynin chloride 10 mg 10 mg PO DAILY #90 tabs 09/23/24 12/04/24 Rx tablet,extended release 24 hr flash glucose sensor (FreeStyle #6 ea 09/30/24 12/04/24 Rx Mounika 14 Day Sensor kit) ezetimibe 10 mg tablet 10 mg PO DAILY 11/05/24 12/04/24 History pantoprazole 40 mg tablet,delayed 40 mg PO DAILY 11/05/24 12/04/24 History release furosemide 40 mg tablet See Rx Instructions PO DAILY 30 11/13/24 12/04/24 Rx days #60 tabs calcitriol 0.25 mcg capsule 0.25 mcg PO Q OTHER DAY 11/18/24 12/04/24 History evolocumab 140 mg/mL subcutaneous 140 mg SQ Q2W 11/18/24 12/04/24 History pen injector (Conchita Goldsteinick) hydralazine 10 mg tablet 10 mg PO TID PRN SBP > 160 #90 tabs 11/18/24 12/04/24 Rx insulin human U-100 NPH-regulr 30 unit SQ BID 11/18/24 12/04/24 History 70-30 mix 100 unit/mL subcutaneous susp (Novolin 70/30 U-100 Insulin) levocetirizine 5 mg tablet (Xyzal) 5 mg PO HS #90 tabs 11/21/24 12/04/24 Rx New Prescriptions to Start Prescriptions: Allergies Allergy/AdvReac Type Severity Reaction Status Date / Time Etizqvb-XNG-ByI Reductase Allergy Severe Unknown Verified 12/09/24 07:09 Inhibitor (Ztunowq-Gmq-Fzy allergy Reductase Inhibitor) reaction Penicillins Allergy Intermediate I-RASH Verified 12/09/24 07:09 losartan Allergy Mild Unknown Verified 12/09/24 07:09 allergy reaction cefuroxime (From Ceftin) Allergy Unknown Verified 12/09/24 07:09 allergy reaction hydrocodone AdvReac Unknown Verified 12/09/24 07:09 allergy reaction Exam Data for Last 24 hours Vital signs and Labs for Last 24 Hours: Temp Pulse Resp BP Pulse Ox O2 Del Method 97.1 F L 60 16 142/68 H 99 Room Air 12/09/24 06:53 12/09/24 06:53 12/09/24 06:53 12/09/24 06:53 12/09/24 06:53 12/09/24 06:53 Laboratory Results - last 24 hr 12/09/24 07:06: POC Glucose 120 H I & O for Last 24 hours: Intake & Output 12/06/24 12/07/24 12/08/24 12/09/24 23:59 23:59 23:59 23:59 Weight 200 lb *Routine HEENT Exam Head: Present normocephalic Eye: Present EOMI and PERRL ENT: Present mucous membranes moist *Routine Neck Exam Neck: Present supple *Routine Respiratory Exam Respiratory: Present CTA bilaterally *Routine Cardiovascular Exam Cardiovascular: Present RRR *Routine Abdominal Exam Abdominal: Present soft and normoactive bowel sounds; Absent tenderness *Routine Rectal Exam Rectal:: deferred *Routine Genitalia Exam Genitalia:: deferred *Routine Extremities Exam Extremities: Absent cyanosis, clubbing or edema *Routine Skin Exam Skin: Present warm; Absent rash *Routine Neurological Exam Neurological: Present alert and oriented X3 Assessment and Plan *Assessment and plan (1) Dysphagia: Status: Acute Category: Medical Code(s): R13.10 - Dysphagia, unspecified Plan A/P: 1. Dysphagia is the preprocedural diagnosis. The patient will be anesthetized/sedated using MAC sedation. The patient has been seen and examined. Cardiac and lung assessment prior to the examination is stable. Proceed with planned diagnostic EGD.
--- NOTE | 2024-12-09 07:37 | P.PCN_ITS ---
[facility] Procedure Note Date: 12/09/24 Time: 07:44 Procedure Note:: Upper Endoscopy Procedure Report: Esophagogastroduodenoscopy with cold biopsies and TTS balloon dilation Endoscopost: Rigoberto Coe II, MD Referring Physician: FRANCO Blanca Date of Procedure: December 09, 2024 Equipment: Olympus GIF 190 standard upper endoscope Sedation: MAC sedation Indications: Mrs. Morales is a 74-year-old female with intermittent dysphagia. She has had some mouth and tongue discomfort with a coating on her tongue. She feels as if food is getting stuck at the base of her tongue. The patient has seen ENT and did have a barium swallow on November 18, 2024. The barium tablet was delayed in the vallecula. The patient does not have any heartburn or reflux but does take pantoprazole. She does have some mild bloating and chronic constipation. Procedure: Prior to the procedure, a history and physical exam was performed, and patient's medications and allergies were reviewed. The risks, benefits and alternatives of the sedation and procedure were discussed with the patient. All questions were answered and informed consent was obtained. The patient was brought to the procedure room. Patient identification and proposed procedure were verified by the physician and the nurse. The patient was placed in a left lateral decubitus position and the scope was passed under direct vision. Throughout the procedure, the patient's blood pressure, pulse, and oxygen saturations were monitored continuously. The upper GI endoscopy was accomplished without difficulty. The patient tolerated the procedure well. Findings: The scope was passed directly into the upper esophagus and advanced to the fourth portion of duodenum and proximal jejunum. A cold biopsy was taken in the proximal jejunum for the disaccharidase assay. The proximal jejunum, post bulbar duodenum and duodenal bulb were normal with normal mucosa and conniventes. The scope was withdrawn through a normal duodenal bulb and pylorus into the stomach. There was mild linear antral gastropathy. The body and fundus of the stomach were normal. Upon retroflexion there was no hiatal hernia. Cold biopsies were taken from the antrum and lesser curvature to rule out H. pylori. The scope was then withdrawn into the esophagus. There was no evidence of reflux esophagitis or Villeda's. There were tertiary contractions and evidence of mild esophageal dysmotility. There was no Schatzki's ring, furrowing, corrugation, webs or strictures. The entire esophagus was dilated to 60 Martiniquais/20 mm with a TTS hydrostatic balloon. There was some thickening and increased resistance at the cricopharyngeus/cricopharyngeal spasm. The re mainder of the esophageal mucosa was normal. The hypopharynx was inspected and there appeared to be no mass at the level of the true and false vocal cords. Impression: 1. Cricopharyngeal spasm status post dilation to 20 mm 2. Nonerosive GERD with moderate esophageal dysmotility Plan: I will follow-up the biopsies and discuss the findings with the patient and family.
[2024-12-09 07:50] VITALS: BP 117/53; PULSE 54; RESP 18; TEMP 36.1; O2SAT 98
[2024-12-09 08:00] VITALS: BP 110/48; PULSE 54; RESP 18; O2SAT 97
[2024-12-09 08:10] VITALS: BP 126/55; RESP 16; O2SAT 99
[2024-12-09 08:20] VITALS: BP 139/61; RESP 18; TEMP 36.1; O2SAT 99
[2024-12-12 13:11] LABS: Disclaimer Notes (.); Interpretation Notes (.); Lactase 27.21 (>/= 14.0); Maltase 226.49 (>/= 110.0); Palatinase 13.45 (>/= 8.5); Reference Notes (.); Sucrase 64.75 (>/= 25.0)
== END 2024-12-09 08:20 | disposition home or self-care (01) ==
PROVIDERS: PCP Nurse Practitioner Family; Visit Provider Internal Medicine Gastroenterology
PROC: 0DJ08ZZ Inspection of Upper Intestinal Tract, Via Natural or Artificial Opening Endoscopic (ICD-10-PCS; CPT 43239; principal; 2024-12-09 08:00)
DX: J39.2 Other diseases of pharynx (principal); K21.9 Gastro-esophageal reflux disease without esophagitis; I25.2 Old myocardial infarction; Z80.0 Family history of malignant neoplasm of digestive organs; Z88.0 Allergy status to penicillin; Z88.5 Allergy status to narcotic agent; Z88.1 Allergy status to other antibiotic agents; Z79.4 Long term (current) use of insulin; Z79.899 Other long term (current) drug therapy
CPT/HCPCS: 43239; 43249; 82657; 82962; C1726; J2003; J2704; J7120

== ENCOUNTER 2024-12-16 09:22 | Outpatient (CLI) | payer MEDICARE, SELFPAY ==
--- OUTSIDE RECORDS SUMMARY | 2024-12-16 09:27 | XMS_ITS | Clinical Summary ---
Author Organization [facility] Address [address] [place] [place] [address] Care Team Providers Care Regional Transfer Liaison Name Role Phone Maribel Ambriz APRN Primary Care Provider [phone] Allergies Active Allergy Reactions Criticality Noted Date [...] MG capsule 02/13/20 24 Active nystatin (Mycostatin) 095393 UNIT/ML suspension 02/13/20 24 Active levocetirizine (Xyzal) [...] Brother Kris CAD (cor onary artery disease), [place] coronary artery Diabetes Brother Kris Heart disease [...] Upcoming Encounters Date Type Department Care Team ([facility] st Contact Info) Description 12/20/2024 11:00 AM EDT Office Visit [facility] [address] [place] [address] Sujata Cullen, ORCHESTRA LEADER [address] [facility] [address] [place] [address] 08/18/2025 10:00 AM EDT Appointment [facility] [place] [address] [address] [facility] [address] [place] [address] 08/18/2025 11:00 AM EDT Office Visit [facility] [address] [facility] [place] [address] Corrina Ariza, ORCHESTRA LEADER [address] [facility] [address] [place] [address] Health Maintenance Due Date Last [...] series) 2010 [facility]-Diabetes: Hemoglobin A1C 12/12/2019 06/14/2019 [id number] Vaccine ( season) 2024 07/21/2021, 09/10/2020, 08/13/2020 [facility]-Influenza Vaccine (#1) 02/10/202504/16, 05/10/2023 [facility]-Breast Cancer Screening 08/14/202610/2024, 07/17/2023 [facility]-DTaP,Tdap,and Td Vaccine s (3 - Td or Tdap) 12/18/2032 12/18/2022, 11/30/2016, 08/17/1996 [facility]-Obesity Intervention Completed 024, 08/14/2023, 08/01/2022 HPV Vaccines Aged Out No longer eligi [...] this topic Medical Devices Implanted Type Area Apparel Cutter Device Identifier Shelf Expiration Date Model / Serial / Lot fotobabble Eviva Std - [id number] Implanted:Qty: 1 on 08/10/2023 by Lien Arana MD at [facility] Left: [id number] / / Procedures Procedure [...] 07/17/2023 Mammography Breast Diagnostic Tomosynthesis Bilateral at [facility] 08/07/2023 Mammography Breast Post Biopsy Clip Left at [facility] 08/10/2023 Mammography Stereotactic Breast Biopsy Left at [facility] 08/10/2023 Mammography Breast Post Biopsy Clip Left at [facility] 02/16/2024 Mammography Breast Diagnostic Tomosynthesis Left at [facility] BREAST COMPOSITION: There are scattered areas of fibroglandular density. FINDINGS: There are post-lumpectomy changes present in the left breast. There is no evidence of suspicious masses, calcifications, or other abnormal findings. Corrina Ariza ORCHESTRA LEADER IMG BI PROCEDURES Final Re sult * [...] <6.0% Children and Adolescents <7.5% . Source: [place] [employer]. Standards of medical care in diabetes, 2017. Diabetes Care.2017:40 (suppl 1):S1-S135. . HbA1c assay performed by an ion-exchange chromatography method that is certified traceable to the DCCT. 06/14/2019 3:55 AM EST 06/14/2019 4:15 AM EST Linda Pereyra APRN LAB BLOOD ORDERABLES Final Res ult SUNQUEST from Last 3 Months or Most Recently Relevant to Health Maintenance Insurance [facility] MEDICARE Care Teams Regional Transfer Liaison Relationship Specialty Start Date End Date Maribel Ambriz, ORCHESTRA LEADER [address] [place] [address] PCP - General 07/17/23
--- OUTSIDE RECORDS SUMMARY | 2024-12-16 09:27 | XMS_ITS | Encounter Summary ---
Author Organization Healthcare Address [address] [place] [address] Care Team Providers Care Bakery Associate Name Role Phone Nola Fay APRN Primary Care Provider [phone] Maribel Ambriz PARTS FACILITATOR Primary Care Provider [phone] Encounter Details Date Type Department Care Team (Late st Contact Info) Description 01/05/2022 Orders Only External Location [address] [place] [id number] Provider, External Social History Tobacco Use Types [...] [address] [place] [address] Sujata Cullen, PARTS FACILITATOR [address] [address] 08/18/2025 10:00 AM EDT Appointment [facility] [address] [place] [address] 08/18/2025 11:00 AM EDT Office Visit [facility] [address] [facility] [place] [address] Corrina Ariza, PARTS FACILITATOR [address] [place] [address] documented as of this encounter Procedures Procedure [...] on filedocumented in this encounter Care Teams Bakery Associate Relationship Specialty Start Date End Date Nola Fay, PARTS FACILITATOR [address] [place] [address] PCP - General 11/15/21 07/16/23 Maribel Ambriz, PARTS FACILITATOR [address] [place] [address] PCP - General 07/17/23 documented as of this encounter
--- OUTSIDE RECORDS SUMMARY | 2024-12-16 09:27 | XMS_ITS | Encounter Summary ---
Author Organization Healthcare Address [address] [place] [address] Care Team Providers Care Resource Specialist Teacher Name Role Phone Nola Fay APRN Primary Care Provider [phone] Maribel Ambriz APRN Primary Care Provider [phone] Encounter Details Date Type Department Care Team (Late Contact Info) Description 01/21/2022 Orders Only External Location [address] [place] [phone] Sarah Oliver MD [address] [place] [address] Social History Tobacco Use Types Packs/Day Years [...] Description 12/20/2024 11:00 AM EDT Office Visit [facility] [address] [place] [address] Sujata Cullen APRN [address] [phone] 08/18/2025 10:00 AM EDT Appointment [facility] [place] [address] Yesenia Daigle Building [address] [place] [address] 08/18/2025 11:00 AM EDT Office Visit [facility] [address] [facility], 2nd [place] [address] Corrina Ariza, GUARD CAPTAIN 800 [facility] Yesenia Daigle [address] [place] [address] documented as of this encounter [...] on filedocumented in this encounter Care Teams Resource Specialist Teacher Relationship Specialty Start Date End Date Nola Fay, GUARD CAPTAIN [address] [place] [address] PCP - General 11/15/21 07/16/23 Maribel Ambriz, GUARD CAPTAIN [address] [place] [address] PCP - General 07/17/23 documented as of this encounter
--- OUTSIDE RECORDS SUMMARY | 2024-12-16 09:27 | XMS_ITS | Encounter Summary ---
Author Organization Healthcare Address [address] [place] [address] Care Team Providers Care Pool Servicer Name Role Phone Maxx Matos MD Primary Care Provider [phone] Nola Fay CREDIT AND COLLECTION MANAGER Primary Care Provider [phone] Maribel Ambriz CREDIT AND COLLECTION MANAGER Primary Care Provider [phone] Encounter Details Date Type Department Care Team (Late st Contact Info) Description 12/01/2020 Orders Only External Location [address] [place] [address] Sarah Oliver MD [address] [place] [address] Social History Tobacco Use Types Packs/Day Years [...] EDT Office Visit [facility] [address] [place] [address] Sujata Cullen, CREDIT AND COLLECTION MANAGER [address] [address] 08/18/2025 10:00 AM EDT Appointment [facility] Rohit Daigle Building [address] [place] [address] 08/18/2025 11:00 AM EDT [facility] Visit [facility] [address], 2nd [place] [address] Corrina Ariza, CREDIT AND COLLECTION MANAGER 800 [facility] Yesenia Daigle [address] [place] [address] documented as of this encounter [...] on filedocumented in this encounter Care Teams Pool Servicer Relationship Specialty Start Date End Date Maxx Matos MD [address] [place] [address] PCP - General 10/23/20 11/14/21 Nola Fay APRN [address] [place] [address] PCP - General 11/15/21 07/16/23 Maribel Ambriz APRN [address] [place] [address] PCP - General 07/17/23 documented as of this encounter
--- OUTSIDE RECORDS SUMMARY | 2024-12-16 09:27 | XMS_ITS | Encounter Summary ---
Author Organization Healthcare Address [address] [place] [address] Care Team Providers Care Wind Plant Manager Name Role Phone Maxx Matos MD Primary Care Provider [phone] Nola Fay APRN Primary Care Provider [phone] Maribel Ambriz MARKETING STRATEGIST Primary Care Provider [phone] Encounter Details Date Type Department Care Team (Late Contact Info) Description 09/09/2013 Orders Only External Location [address] [place] [phone] Maxx Matos MD [address] [place] [address] Social History Tobacco Use Types Packs/Day [...] Description 12/20/2024 11:00 AM EDT Office Visit [facility] [address] [place] [address] Sujata Cullen APRN [address] [address] 08/18/2025 10:00 AM EDT Appointment [facility] [place] [address] Yesenia Daigle [address] [place] [address] 08/18/2025 11:00 AM EDT Office Visit [facility] Center [address] [facility], 2nd [place] [address] Corrina Ariza, MARKETING STRATEGIST 800 [facility] Yesenia Daigle [facility] 134 [place] [address] documented as of this encounter [...] on filedocumented in this encounter Care Teams Wind Plant Manager Relationship Specialty Start Date End Date Maxx Matos MD [address] [place] [address] PCP - General 10/23/20 11/14/21 Nola Fay APRN [address] [place] [address] PCP - General 11/15/21 07/16/23 Maribel Ambriz APRN [address] [place] [address] PCP - General 07/17/23 documented as of this encounter
--- OUTSIDE RECORDS SUMMARY | 2024-12-16 09:27 | XMS_ITS | Encounter Summary ---
Author Organization Healthcare Address [address] [place] [address] Care Team Providers Care Tower Equipment Repairer Name Role Phone Maxx Matos MD Primary Care Provider [phone] Nola Fay APRN Primary Care Provider [phone] Maribel Ambriz PERFORMANCE IMPROVEMENT CONSULTANT Primary Care Provider [phone] Encounter Details Date Type Department Care Team (Late Contact Info) Description 09/24/2013 Orders Only External Location [address] [place] [phone] Maxx Matos MD [address] [place] [address] Social History Tobacco Use Types Packs/Day [...] Description 12/20/2024 11:00 AM EDT Office Visit [facility] [address] [place] [address] Sujata Cullen APRN [address] [address] 08/18/2025 10:00 AM EDT Appointment [facility] [place] [address] Yesenia Daigle [address] [place] [address] 08/18/2025 11:00 AM EDT Office Visit [facility] 740 [facility], 2nd [place] [address] Corrina Ariza, PERFORMANCE IMPROVEMENT CONSULTANT 800 [facility] Yesenia Daigle [facility] 134 [place] [address] documented as of this encounter [...] on filedocumented in this encounter Care Teams Tower Equipment Repairer Relationship Specialty Start Date End Date Maxx Matos MD [address] [place] [address] PCP - General 10/23/20 11/14/21 Nola Fay APRN [address] [place] [address] PCP - General 11/15/21 07/16/23 Maribel Ambriz, PERFORMANCE IMPROVEMENT CONSULTANT [address] [place] [address] PCP - General 07/17/23 documented as of this encounter
--- OUTSIDE RECORDS SUMMARY | 2024-12-16 09:27 | XMS_ITS | Encounter Summary ---
Author Organization Healthcare Address [address] [place] [address] Care Team Providers Care Hr Administrator Name Role Phone Maxx Matos MD Primary Care Provider [phone] Nola Fay APRN Primary Care Provider [phone] Maribel Ambriz PICKING TECH Primary Care Provider [phone] Encounter Details Date Type Department Care Team (Late Contact Info) Description 09/08/2011 Orders Only External Location [address] [place] [phone] Provider, External Social History Tobacco Use Types [...] [place] [address] Sujata Cullen APRN [address] [address] 08/18/2025 10:00 AM EDT Appointment [facility] [address] [place] [address] 08/18/2025 11:00 AM EDT Office Visit [facility] [address] [facility], 2nd [place] [address] Corrina Ariza, PICKING TECH 800 [facility] Yesenia Daigle [facility] [address] [place] [address] documented as of this encounter Procedures Procedure [...] on filedocumented in this encounter Care Teams Hr Administrator Relationship Specialty Start Date End Date Maxx Matos MD [address] [place] [address] PCP - General 10/23/20 11/14/21 Nola Fay, PICKING TECH [address] [place] [address] PCP - General 11/15/21 07/16/23 Maribel Ambriz APRN [address] [place] [address] PCP - General 07/17/23 documented as of this encounter
--- OUTSIDE RECORDS SUMMARY | 2024-12-16 09:27 | XMS_ITS | Encounter Summary ---
Author Organization Healthcare Address [address] [place] [address] Care Team Providers Care Clinical Research Specialist Name Role Phone Nola Fay APRN Primary Care Provider [phone] Maribel Ambriz GLUING CREW LEADER Primary Care Provider [phone] Encounter Details Date Type Department Care Team (Late st Contact Info) Description 01/05/2022 Orders Only External Location [address] [place] [phone] Provider, External Social History Tobacco Use Types [...] Description 12/20/2024 11:00 AM EDT Office Visit [facility] [address] [place] [address] Sujata Cullen, GLUING CREW LEADER [address] [address] 08/18/2025 10:00 AM EDT Appointment [facility] [address] [place] [address] 08/18/2025 11:00 AM EDT [facility] Visit [facility] 740 [facility], 2nd [place] [address] Corrina Ariza, GLUING CREW LEADER 800 [facility] Yesenia Daigle [address] [place] [address] documented as of this encounter Procedures Procedure [...] filedocumented in this encounter Care Teams Clinical Research Specialist Relationship Specialty Start Date End Date Nola Fay, GLUING CREW LEADER [address] [place] [address] PCP - General 11/15/21 07/16/23 Maribel Ambriz, GLUING CREW LEADER [address] [place] [address] PCP - General 07/17/23 documented as of this encounter
--- OUTSIDE RECORDS SUMMARY | 2024-12-16 09:27 | XMS_ITS | Encounter Summary ---
Author Organization Healthcare Address [address] [place] [address] Care Team Providers Care Ex Assistant/Program Director Name Role Phone Nola Fay APRN Primary Care Provider [phone] Maribel Ambriz HUMAN RESOURCES OPERATIONS SPECIALIST Primary Care Provider [phone] Encounter Details Date Type Department Care Team (Late st Contact Info) Description 12/21/2021 Orders Only External Location [address] [place] [phone] Provider, External Social History Tobacco Use Types [...] [address] [place] [address] Sujata Cullen, HUMAN RESOURCES OPERATIONS SPECIALIST [address] [address] 08/18/2025 10:00 AM EDT Appointment [facility] [address] 800 [place] [address] 08/18/2025 11:00 AM EDT [facility] Visit [facility] 740 [facility], 2nd [place] [address] Corrina Ariza, HUMAN RESOURCES OPERATIONS SPECIALIST 800 [facility] [address] Da[address]le [address] [place] [address] documented as of this encounter Procedures Procedure [...] on filedocumented in this encounter Care Teams Ex Assistant/Program Director Relationship Specialty Start Date End Date Nola Fay, HUMAN RESOURCES OPERATIONS SPECIALIST [address] [place] [address] PCP - General 11/15/21 07/16/23 Maribel Ambriz, HUMAN RESOURCES OPERATIONS SPECIALIST [address] [place] [address] PCP - General 07/17/23 documented as of this encounter
--- OUTSIDE RECORDS SUMMARY | 2024-12-16 09:27 | XMS_ITS | Encounter Summary ---
Author Organization Healthcare Address [address] [place] [address] Care Team Providers Care Insurance Case Manager Name Role Phone Maxx Matos MD Primary Care Provider [phone] Nola Fay APRN Primary Care Provider [phone] Maribel Ambriz WINDOW SASH INSTALLER Primary Care Provider [phone] Encounter Details Date Type Department Care Team (Late Contact Info) Description 09/03/2012 Orders Only External Location [address] [place] [phone] Maxx Matos MD [address] [place] [address] Social History Tobacco Use Types Packs/Day [...] Description 12/20/2024 11:00 AM EDT Office Visit [facility] [address] [place] [address] Sujata Cullen APRN [address] [address] 08/18/2025 10:00 AM EDT Appointment [facility] [place] [address] Yesenia Daigle [address] [place] [address] 08/18/2025 11:00 AM EDT Office Visit [facility] 740 [facility], 2nd [place] [address] Corrina Ariza, WINDOW SASH INSTALLER 800 [facility] Yesenia Daigle [facility] 134 [place] [address] documented as of this encounter [...] on filedocumented in this encounter Care Teams Insurance Case Manager Relationship Specialty Start Date End Date Maxx Matos MD [address] [place] [address] PCP - General 10/23/20 11/14/21 Nola Fay APRN [address] [place] [address] PCP - General 11/15/21 07/16/23 Maribel Ambriz APRN [address] [place] [address] PCP - General 07/17/23 documented as of this encounter
--- OUTSIDE RECORDS SUMMARY | 2024-12-16 09:27 | XMS_ITS | Encounter Summary ---
Author Organization Healthcare Address [address] [place] [address] Care Team Providers Care Telephone Order Clerk Room Service Name Role Phone Maxx Matos MD Primary Care Provider [phone] Nola Fay APRN Primary Care Provider [phone] Maribel Ambriz ICE CREAM MIXER Primary Care Provider Encounter Details Date Type Department Care Team (Late Contact Info) Description 10/08/2013 Orders Only External Location [address] [place] [phone] Provider, External Social History Tobacco Use Types [...] Description 12/20/2024 11:00 AM EDT Office Visit [facility] [address] [place] [address] Sujata Cullen APRN [address] [address] 08/18/2025 10:00 AM EDT Appointment [facility] [address] 800 [place] [address] 08/18/2025 11:00 AM EDT [facility] Visit [facility] 740 [facility], 2nd [place] [address] Corrina Ariza, ICE CREAM MIXER 800 [facility] Yesenia Daigle [facility] [address] [place] [address] documented as of this encounter Procedures Procedure [...] on filedocumented in this encounter Care Teams Telephone Order Clerk Room Service Relationship Specialty Start Date End Date Maxx Matos MD [address] [place] [address] PCP - General 10/23/20 11/14/21 Nola Fay, ICE CREAM MIXER [address] [place] [address] PCP - General 11/15/21 07/16/23 Maribel Ambriz APRN [address] [place] [address] PCP - General 07/17/23 documented as of this encounter
--- OUTSIDE RECORDS SUMMARY | 2024-12-16 09:27 | XMS_ITS | Encounter Summary ---
Author Organization Healthcare Address [address] [place] [address] Care Team Providers Care Education Trainer Name Role Phone Maxx Matos MD Primary Care Provider [phone] Nola Fay APRN Primary Care Provider [phone] Maribel Ambriz INTENSIVE CARE SPECIALIST Primary Care Provider [phone] Encounter Details Date Type Department Care Team (Late Contact Info) Description 09/24/2013 Orders Only External Location [address] [place] [phone] Maxx Matos MD [address] [place] [address] Social History Tobacco Use Types Packs/Day [...] Description 12/20/2024 11:00 AM EDT Office Visit [facility] [address] [place] [address] Sujata Cullen APRN [address] [address] 08/18/2025 10:00 AM EDT Appointment [facility] [place] [address] Yesenia Daigle [address] [place] [address] 08/18/2025 11:00 AM EDT Office Visit [facility] 740 [facility], 2nd [place] [address] Corrina Ariza, INTENSIVE CARE SPECIALIST 800 [facility] Yesenia Daigle [facility] 134 [place] [address] documented as of this encounter [...] on filedocumented in this encounter Care Teams Education Trainer Relationship Specialty Start Date End Date Maxx Matos MD [address] [place] [address] PCP - General 10/23/20 11/14/21 Nola Fay APRN [address] [place] [address] PCP - General 11/15/21 07/16/23 Maribel Ambriz APRN [address] [place] [address] PCP - General 07/17/23 documented as of this encounter
--- OUTSIDE RECORDS SUMMARY | 2024-12-16 09:28 | XMS_ITS | Encounter Summary ---
Author Organization Healthcare Address [address] [place] [address] Care Team Providers Care Director Labor Standards Name Role Phone Maxx Matos MD Primary Care Provider [phone] Nola Fay APRN Primary Care Provider [phone] Maribel Ambriz ERECTOR OPERATOR Primary Care Provider [phone] Encounter Details Date Type Department Care Team (Late Contact Info) Description 10/08/2013 Orders Only External Location [address] [place] [phone] Provider, External Social History Tobacco Use Types [...] Description 12/20/2024 11:00 AM EDT Office Visit [facility] [address] [place] [address] Sujata Cullen APRN [address] [address] 08/18/2025 10:00 AM EDT Appointment [facility] [address] [place] [address] 08/18/2025 11:00 AM EDT [facility] Visit [facility] 740 [facility], 2nd [place] [address] Corrina Ariza, ERECTOR OPERATOR 800 [facility] Yesenia Daigle [facility] 134 [place] [address] documented as of this encounter Procedures Procedure [...] on filedocumented in this encounter Care Teams Director Labor Standards Relationship Specialty Start Date End Date Maxx Matos MD [address] [place] [address] PCP - General 10/23/20 11/14/21 Nola Fay APRN [address] [place] [address] PCP - General 11/15/21 07/16/23 Maribel Ambriz APRN [address] [place] [address] PCP - General 07/17/23 documented as of this encounter
--- OUTSIDE RECORDS SUMMARY | 2024-12-16 09:28 | XMS_ITS | Encounter Summary ---
Author Organization Healthcare Address [address] [place] [address] Care Team Providers Care Netezza Developer Name Role Phone Maxx Matos MD Primary Care Provider [phone] Nola Fay APRN Primary Care Provider [phone] Maribel Ambriz HARDWARE TEST ENGINEER Primary Care Provider [phone] Encounter Details Date Type Department Care Team (Late Contact Info) Description 10/13/2015 Orders Only External Location [address] [place] [phone] Provider, External Social History Tobacco Use Types [...] Description 12/20/2024 11:00 AM EDT Office Visit [facility] [address] [place] [address] Sujata Cullen APRN [address] [address] 08/18/2025 10:00 AM EDT [facility]ointment [facility] [address] [place] [address] 08/18/2025 11:00 AM EDT [facility] Visit [facility] 740 [facility], 2nd [place] [address] Corrina Ariza, HARDWARE TEST ENGINEER 800 [facility] Yesenia Daigle [facility] [address] [place] [address] documented as of this encounter Procedures Procedure [...] on filedocumented in this encounter Care Teams Netezza Developer Relationship Specialty Start Date End Date Maxx Matos MD [address] [place] [address] PCP - General 10/23/20 11/14/21 Nola Fay, HARDWARE TEST ENGINEER [address] [place] [address] PCP - General 11/15/21 07/16/23 Maribel Ambriz APRN [address] [place] [address] PCP - General 07/17/23 documented as of this encounter
--- OUTSIDE RECORDS SUMMARY | 2024-12-16 09:28 | XMS_ITS | Encounter Summary ---
Author Organization Healthcare Address [address] [place] [address] Care Team Providers Care Research Manufacturing Operator Name Role Phone Maxx Matos MD Primary Care Provider [phone] Nola Fay APRN Primary Care Provider [phone] Maribel Ambriz PAPER BAG INSPECTOR Primary Care Provider [phone] Encounter Details Date Type Department Care Team (Late Contact Info) Description 10/08/2013 Orders Only External Location [address] [place] [phone] Provider, External Social History Tobacco Use Types [...] Description 12/20/2024 11:00 AM EDT Office Visit [facility] [address] [place] [address] Sujata Cullen APRN [address] [address] 08/18/2025 10:00 AM EDT Appointment [facility] [address] [place] [address] 08/18/2025 11:00 AM EDT [facility] Visit [facility] 740 [facility], 2nd [place] [address] Corrina Ariza, PAPER BAG INSPECTOR 800 [facility] Yesenia Daigle [facility] [address] [place] [address] documented as of this encounter Procedures Procedure [...] on filedocumented in this encounter Care Teams Research Manufacturing Operator Relationship Specialty Start Date End Date Maxx Matos MD [address] [place] [address] PCP - General 10/23/20 11/14/21 Nola Fay, PAPER BAG INSPECTOR [address] [place] [address] PCP - General 11/15/21 07/16/23 Maribel Ambriz APRN [address] [place] [address] PCP - General 07/17/23 documented as of this encounter
--- OUTSIDE RECORDS SUMMARY | 2024-12-16 09:28 | XMS_ITS | Encounter Summary ---
Author Organization Healthcare Address [address] [place] [address] Care Team Providers Care Public Affairs Specialist Name Role Phone Maxx Matos MD Primary Care Provider [phone] Nola Fay APRN Primary Care Provider [phone] Maribel Ambriz PATIENT SUPPORT ASSOCIATE Primary Care Provider [phone] Encounter Details Date Type Department Care Team (Late Contact Info) Description 11/25/2019 Orders Only External Location [address] [place] [phone] Provider, External Social History Tobacco Use Types [...] Description 12/20/2024 11:00 AM EDT Office Visit [facility] [address] [place] [address] Sujata Cullen APRN [address] [address] 08/18/2025 10:00 AM EDT Appointment [facility] [address] [place] [address] 08/18/2025 11:00 AM EDT [facility] 740 [facility], 2nd [place] [address] Corrina Ariza, PATIENT SUPPORT ASSOCIATE 800 [facility] Yesenia Daigle [facility] 134 [place] [address] documented as of this encounter Procedures Procedure [...] on filedocumented in this encounter Care Teams Public Affairs Specialist Relationship Specialty Start Date End Date Maxx Matos MD [address] [place] [address] PCP - General 10/23/20 11/14/21 Nola Fay, PATIENT SUPPORT ASSOCIATE [address] [place] [address] PCP - General 11/15/21 07/16/23 Maribel Ambriz APRN [address] [place] [address] PCP - General 07/17/23 documented as of this encounter
--- OUTSIDE RECORDS SUMMARY | 2024-12-16 09:28 | XMS_ITS | Encounter Summary ---
Author Organization Healthcare Address [address] [place] [address] Care Team Providers Care Veneer Matcher Name Role Phone Maxx Matos MD Primary Care Provider [phone] Nola Fay BLUEPRINTING MACHINE OPERATOR Primary Care Provider [phone] Maribel Ambriz BLUEPRINTING MACHINE OPERATOR Primary Care Provider [phone] Encounter Details Date Type Department Care Team (Late Contact Info) Description 06/18/2020 Orders Only External Location [address] [place] [phone] Sarah Oliver MD [address] [place] [address] Social History Tobacco Use Types Packs/Day Years [...] Description 12/20/2024 11:00 AM EDT Office Visit [facility] [address] [place] [address] Sujata Cullen APRN [address] [phone] 08/18/2025 10:00 AM EDT [facility]ointment [facility] [address] [address] 08/18/2025 11:00 AM EDT Office Visit [facility] [address] [facility], 2nd [place] [address] Corrina Ariza, BLUEPRINTING MACHINE OPERATOR [address] [facility] [address] [place] [address] documented as of this [...] on filedocumented in this encounter Care Teams Veneer Matcher Relationship Specialty Start Date End Date Maxx Matos MD [address] [place] [address] PCP - General 10/23/20 11/14/21 Nola Fay APRN [address] [place] [address] PCP - General 11/15/21 07/16/23 Maribel Ambriz, BLUEPRINTING MACHINE OPERATOR [address] [place] [address] PCP - General 07/17/23 documented as of this encounter
--- OUTSIDE RECORDS SUMMARY | 2024-12-16 09:28 | XMS_ITS | Encounter Summary ---
Author Organization Healthcare Address [address] [place] [address] Care Team Providers Care Rim Turning Machine Operator Name Role Phone Maxx Matos MD Primary Care Provider [phone] Nola Fay APRN Primary Care Provider [phone] Maribel Ambriz COMMERCIAL UNDERWRITER Primary Care Provider Encounter Details Date Type Department Care Team (Late Contact Info) Description 11/13/2017 Orders Only External Location [address] [place] [phone] Provider, External Social History Tobacco Use Types [...] [facility] [address] [place] [address] Sujata Cullen APRN [address] [address] 08/18/2025 10:00 AM EDT Appointment [facility] [address] [place] [address] 08/18/2025 11:00 AM EDT Office Visit [facility] [address] [facility], 2nd [place] [address] Corrina Ariza, COMMERCIAL UNDERWRITER [address] [facility] Yesenia Daigle [facility] [address] [place] [address] documented as of this encounter Procedures Procedure [...] on filedocumented in this encounter Care Teams Rim Turning Machine Operator Relationship Specialty Start Date End Date Maxx Matos MD [address] [place] [address] PCP - General 10/23/20 11/14/21 Nola Fay, COMMERCIAL UNDERWRITER [address] [place] [address] PCP - General 11/15/21 07/16/23 Maribel Ambriz APRN [address] [place] [address] PCP - General 07/17/23 documented as of this encounter
--- OUTSIDE RECORDS SUMMARY | 2024-12-16 09:28 | XMS_ITS | Encounter Summary ---
Author Organization Healthcare Address [address] [place] [address] Care Team Providers Care Court Operations Clerk Name Role Phone Maxx Matos MD Primary Care Provider [phone] Nola Fay APRN Primary Care Provider [phone] Maribel Ambriz MACHINE ZIPPER TRIMMER Primary Care Provider [phone] Encounter Details Date Type Department Care Team (Late Contact Info) Description 10/28/2014 Orders Only External Location [address] [place] [phone] Provider, External Social History Tobacco Use Types [...] Description 12/20/2024 11:00 AM EDT Office Visit [facility] [address] [place] [address] Sujata Cullen APRN [address] [address] 08/18/2025 10:00 AM EDT Appointment [facility] [address] [place] [address] 08/18/2025 11:00 AM EDT Office Visit [facility] [address] [facility], 2nd [place] [address] Corrina Ariza, MACHINE ZIPPER TRIMMER [address] [facility] Yesenia Daigle [facility] Aj[address] [place] [address] documented as of this encounter Procedures Procedure [...] on filedocumented in this encounter Care Teams Court Operations Clerk Relationship Specialty Start Date End Date Maxx Matos MD [address] [place] [address] PCP - General 10/23/20 11/14/21 Nola Fay, MACHINE ZIPPER TRIMMER [address] [place] [address] PCP - General 11/15/21 07/16/23 Maribel Ambriz, MACHINE ZIPPER TRIMMER [address] [place] [address] PCP - General 07/17/23 documented as of this encounter
--- OUTSIDE RECORDS SUMMARY | 2024-12-16 09:28 | XMS_ITS | Encounter Summary ---
Author Organization Healthcare Address [address] [place] [address] Care Team Providers Care Die Hardener Name Role Phone Maxx Matos MD Primary Care Provider Nola Fay APRN Primary Care Provider [phone] Maribel Ambriz RV TECHNICIAN Primary Care Provider [phone] Encounter Details Date Type Department Care Team (Late Contact Info) Description 11/15/2018 Orders Only External Location [address] [place] [phone] Provider, External Social History Tobacco Use Types [...] Office Visit [facility] [address] [place] [address] Sujata Cullen APRN [address] [address] 08/18/2025 10:00 AM EDT Appointment [facility] [address] [place] [address] 08/18/2025 11:00 AM EDT Office Visit [facility] [address] [facility], 2nd [place] [address] Corrina Ariza, RV TECHNICIAN [address] [facility] Yesenia Daigle [facility] [address] [place] [address] documented as of this encounter Procedures Procedure [...] on filedocumented in this encounter Care Teams Die Hardener Relationship Specialty Start Date End Date Maxx Matos MD [address] [place] [address] PCP - General 10/23/20 11/14/21 Nola Fay, RV TECHNICIAN [address] [place] [address] PCP - General 11/15/21 07/16/23 Maribel Ambriz, RV TECHNICIAN [address] [place] [address] PCP - General 07/17/23 documented as of this encounter
--- OUTSIDE RECORDS SUMMARY | 2024-12-16 09:28 | XMS_ITS | Encounter Summary ---
Author Organization Healthcare Address [address] [place] [address] Care Team Providers Care Field Reviewer Name Role Phone Maxx Matos MD Primary Care Provider [phone] Nola Fay DICTAPHONE MECHANIC Primary Care Provider [phone] Maribel Ambriz DICTAPHONE MECHANIC Primary Care Provider [phone] Encounter Details Date Type Department Care Team (Late Contact Info) Description 12/13/2019 Orders Only External Location [address] [place] [phone] Sarah Oliver MD [address] [place] [address] Social History Tobacco Use Types Packs/Day Years [...] Visit [facility] [address] [place] [address] Sujata Cullen APRN [address] [address] 08/18/2025 10:00 AM EDT Appointment [facility] [address] [address] 08/18/2025 11:00 AM EDT Office Visit [facility] [address] [facility], 2nd [place] [address] Corrina Ariza, DICTAPHONE MECHANIC [address] [facility] Yesenia Daigle [address] [place] [address] documented as of this encounter [...] on filedocumented in this encounter Care Teams Field Reviewer Relationship Specialty Start Date End Date Maxx Matos MD [address] [place] [address] PCP - General 10/23/20 11/14/21 Nola Fay DICTAPHONE MECHANIC [address] [place] [address] PCP - General 11/15/21 07/16/23 Maribel Ambriz, DICTAPHONE MECHANIC [address] [place] [address] PCP - General 07/17/23 documented as of this encounter
--- OUTSIDE RECORDS SUMMARY | 2024-12-16 09:28 | XMS_ITS | Encounter Summary ---
Author Organization Healthcare Address [address] [place] [address] Care Team Providers Care Tax Consultant Name Role Phone Maxx Matos MD Primary Care Provider Nola Fay APRN Primary Care Provider [phone] Maribel Ambriz DISTRIBUTION OPERATION SUPERVISOR Primary Care Provider [phone] Encounter Details Date Type Department Care Team (Late Contact Info) Description 10/28/2015 Orders Only External Location [address] [place] [phone] Provider, External Social History Tobacco Use Types [...] Description 12/20/2024 11:00 AM EDT Office Visit [facility] [address] [place] [address] Sujata Cullen APRN [address] [address] 08/18/2025 10:00 AM EDT Appointment [facility] [address] [place] [address] 08/18/2025 11:00 AM EDT Office Visit [facility] [address] [facility], 2nd [place] [address] Corrina Ariza, DISTRIBUTION OPERATION SUPERVISOR [address] [facility] Yesenia Daigle [facility] Ajit [address] [place] [address] documented as of this encounter Procedures Procedure [...] on filedocumented in this encounter Care Teams Tax Consultant Relationship Specialty Start Date End Date Maxx Matos MD [address] [place] [address] PCP - General 10/23/20 11/14/21 Nola Fay, DISTRIBUTION OPERATION SUPERVISOR [address] [place] [address] PCP - General 11/15/21 07/16/23 Maribel Ambriz APRN [address] [place] [address] PCP - General 07/17/23 documented as of this encounter
--- OUTSIDE RECORDS SUMMARY | 2024-12-16 09:28 | XMS_ITS | Encounter Summary ---
Author Organization Healthcare Address [address] [place] [address] Care Team Providers Care Funnel Setter Name Role Phone Maxx Matos MD Primary Care Provider Nola Fay MAINTENANCE PLANNER Primary Care Provider [phone] Maribel Ambriz MAINTENANCE PLANNER Primary Care Provider [phone] Encounter Details Date Type Department Care Team (Late Contact Info) Description 12/13/2019 Orders Only External Location [address] [place] [phone] Sarah Oliver MD [address] [place] [address] Social History Tobacco Use Types Packs/Day Years [...] Office Visit [facility] [address] [place] [address] Sujata Cullen APRN [address] [address] 08/18/2025 10:00 AM EDT Appointment [facility] [address] [address] 08/18/2025 11:00 AM EDT Office Visit [facility] [address] [facility], 2nd [place] [address] Corrina Ariza, MAINTENANCE PLANNER [address] [facility] Yes[address] Daigle [address] [place] [address] documented as of this encounter [...] on filedocumented in this encounter Care Teams Funnel Setter Relationship Specialty Start Date End Date Maxx Matos MD [address] [place] [address] PCP - General 10/23/20 11/14/21 Nola Fay MAINTENANCE PLANNER [address] [place] [address] PCP - General 11/15/21 07/16/23 Maribel Ambriz, MAINTENANCE PLANNER [address] [place] [address] PCP - General 07/17/23 documented as of this encounter
--- OUTSIDE RECORDS SUMMARY | 2024-12-16 09:28 | XMS_ITS | Encounter Summary ---
Author Organization Healthcare Address [address] [place] [address] Care Team Providers Care Registered Route Associate Name Role Phone Maxx Matos MD Primary Care Provider [phone] Nola Fay APRN Primary Care Provider [phone] Maribel Ambriz ELECTRONIC SYSTEM ENGINEER Primary Care Provider [phone] Encounter Details Date Type Department Care Team (Late Contact Info) Description 11/08/2016 Orders Only External Location [address] [place] [phone] Maxx Matos MD [address] [place] [address] Social History Tobacco Use Types Packs/Day [...] [address] Sujata Cullen APRN [address] [address] 08/18/2025 10:00 AM EDT Appointment [facility] [place] [address] [address] Daigle [address] [place] [address] 08/18/2025 11:00 AM EDT Office Visit [facility] Breast Care Center [address] [facility], 2nd [place] [address] Corrina Ariza, ELECTRONIC SYSTEM ENGINEER [address] [facility] Yesenia Daigle [facility] [address] [place] [address] documented as of this encounter Procedures Procedure Name Priority Date/Time Associated Diagnosis Comments MAMMOGRAPHY OUTSIDE IMAGES UPLOAD 11/08/2016 9:21 AM EDT documented in this encounter Results * Mammography Outside Images Upload (11/08/2016 9:21 AM EDT) Anatomical Region Laterality Modality Mammography 11/08/2016 9:21 AM EDT us aMxx Matos MD IMG BI PROCEDURES Final Resul t documented in this encounter Visit Diagnoses Not on filedocumented in this encounter Care Teams Registered Route Associate Relationship Specialty Start Date End Date Maxx Matos MD [address] [place] [address] PCP - General 10/23/20 11/14/21 Nola Fay APRN [address] [place] [address] PCP - General 11/15/21 07/16/23 Maribel Ambriz APRN [address] [place] [address] PCP - General 07/17/23 documented as of this encounter
[2024-12-16 09:40] LABS: Microscopic, Urine URINE MICROSCOPIC (MICROSCOPIC)
[2024-12-16 10:04] LABS: Hematocrit 39.8 % (37.0-47.0); Hemoglobin 12.6 g/dL (12.2-16.2); Immature Granulocytes % 0.7 %; Mean Corpuscular HGB Conc 31.7 g/dL (31.8-35.4); Mean Corpuscular Hemoglobin 28.3 pg (27.0-31.2); Mean Corpuscular Volume 89.4 fl (81-99); Nucleated Red Blood Cells % 0 %; Platelet Count 240 K/mm3 (142-424); Red Blood Count 4.45 M/mm3 (4.20-5.40); Red Cell Distribution Width-SD 46.2 fL; White Blood Count 6.0 K/mm3 (4.8-10.8)
[2024-12-16 10:32] LABS: Bilirubin,Urine Negative (Negative); Color,Urine YELLOW (Yellow); Glucose,Urine (UA) 3+ (Negative); Ketones,Urine Negative (Negative); Leukocyte Esterase,Urine Negative (Negative); PH,Urine 6.5 (5.0-8.5); Protein,Urine Negative (Negative); Specific Gravity, Urine 1.010 (1.005-1.030); Urobilinogen,Urine 0.2 EU/dl (0.2)
[2024-12-16 10:34] LABS: Alanine Aminotransferase 19 U/L (12-78); Albumin Level 4.4 g/dl (3.5-5.0); Albumin/Globulin Ratio 1.8 (1.1-1.8); Alkaline Phosphatase 53 U/L (38-126); Anion Gap 19.9 mEq/L (5-15); Aspartate Amino Transferase 29 U/L (14-36); Bilirubin,Total 0.7 mg/dl (0.2-1.3); Blood Urea Nitrogen 22 mg/dl (7-17); Calcium 9.6 mg/dl (8.4-10.2); Carbon Dioxide 24 mmol/L (22.0-30.0); Chloride 95 mmol/L (98-107); Cholesterol 153 mg/dl (140-200); Creatinine,Serum 1.30 mg/dl (0.52-1.04); Estimated Glomerular Filt Rate 40 ml/min (>60); GFR (African American) 48 ML/MIN (>60); Globulin 2.4 g/dL (1.3-3.2); Glucose 133 mg/dl (74-100); HDL Cholesterol 69 mg/dl (40-60); Iron 82 ug/dL (37-170); Phosphorous 3.8 mg/dl (2.5-4.5); Potassium 4.9 mmoL/L (3.5-5.1); Sodium 134 mmol/L (136-145); Total Protein,Serum 6.8 g/dl (6.3-8.2); Triglycerides 148 mg/dl (30-150)
[2024-12-16 10:51] LABS: Hemoglobin A1C 7.8 % (4.0-6.0)
[2024-12-16 11:43] LABS: Total Iron Binding Capacity 369 ug/dL (265-497)
[2024-12-16 12:11] LABS: Ferritin 12.9 ng/ml (11.1-264)
== END 2024-12-16 23:59 | disposition home or self-care (01) ==
LOC: LAB 09:23
PROVIDERS: PCP Nurse Practitioner Family; Visit Provider Nurse Practitioner
DX: D64.9 Anemia, unspecified (principal); E11.40 Type 2 diabetes mellitus with diabetic neuropathy, unspecified; N25.81 Secondary hyperparathyroidism of renal origin; R53.83 Other fatigue; E78.2 Mixed hyperlipidemia; E11.69 Type 2 diabetes mellitus with other specified complication; E11.9 Type 2 diabetes mellitus without complications; R41.3 Other amnesia; I12.9 Hypertensive chronic kidney disease with stage 1 through stage 4 chronic kidney disease, or unspecified chronic kidney disease; N18.32 Chronic kidney disease, stage 3b; E78.5 Hyperlipidemia, unspecified
CPT/HCPCS: 80053; 80061; 80069; 81001; 82043; 82570; 82728; 83036; 83540; 83550; 84156; 85025; 87086

== ENCOUNTER 2025-02-21 13:18 | Emergency (ER) | payer MEDICARE, SELFPAY ==
[2025-02-21] VITALS (17 sets, daily range): BP systolic 93–145; BP diastolic 49–84; PULSE 54–88; RESP 12–20; TEMP 36.8–36.9; O2SAT 94–99; BMI 35.7
--- NOTE | 2025-02-21 13:28 | ECG_ITS ---
APPROVED REPORT Exam: Resting ECG HR:63 bpm ECG Measurements Heart Rate [address] 194 P 68 QRSd 101 QRS 17 QT 448 T 70 QTc 456 Conclusion SINUS RHYTHM LOW QRS VOLTAGE IN PRECORDIAL LEADS [QRS DEFLECTION < 1.0 mV IN CHEST LEADS] BORDERLINE ECG UNCONFIRMED REPORT Normal sinus rhythm. No ST elevation or depression. QTc 456 Electronically signed by : TAMARA ADLER, 02/22/2025 15:26:29
--- NOTE | 2025-02-21 13:35 | XR_ITS ---
FINAL REPORT CLINICAL HISTORY: near syncope COMPARISON: 03/28/2022 FINDINGS: A portable view of the chest was obtained. The heart is mildly enlarged. The patient is status post median sternotomy. The lungs are clear. There is no pleural effusion or pneumothorax. IMPRESSION: No acute process on this portable exam. Reviewed, Interpreted and Dictated by Lina Norton MD Transcribed by Nurys Brown Authenticated and . [facility]
--- NOTE | 2025-02-21 13:37 | ED_ITS ---
<Statement entered by Tesfaye Bob MD - 02/21/25 19:49> I was consulted by the TORIN, and we discussed the complexity of the problems being addressed. I approve the treatment and management plan for this patient's care in the emergency department, thus performing a substantive portion of the medical decision making. Patient's care was handed off to oncoming physician, Dr. Orourke and Elana Galindo, TORIN, pending completion of her workup. Ultimate disposition is to be determined by TORIN Galindo and Dr. Orourke. Tesfaye Bob MD Discharge Plan Disposition Patient Disposition: Home, Self-Care Condition: Good Prescriptions Prescriptions: No Action calcitriol 0.25 mcg capsule 0.25 mcg PO Q OTHER DAY cholecalciferol (vitamin D3) 25 mcg (1,000 unit) capsule 25 mcg PO DAILY escitalopram oxalate 20 mg tablet 20 mg PO DAILY ranolazine 1,000 mg tablet extended release 12 hr 1,000 mg PO BID Arexvy (PF) 120 mcg/0.5 mL suspension for reconstitution 0.5 ml IM ONCE Qty: 10 0RF furosemide 40 mg tablet See Rx Instructions PO DAILY 30 Days Qty: 60 3RF Rx Instructions: 2 tabs (80mg) orally on 4 days weekly and 1 tab (40mg) all other days orally daily; hydralazine 10 mg tablet 10 mg PO BID Qty: 90 3RF nitroglycerin 0.4 mg tablet, sublingual 0.4 mg sublingual Q5-15M PRN (Reason: Chest Pain) Patient Comments: DISSOLVE ONE TABLET UNDER THE TONGUE EVERY 5 MINUTES NEEDED FOR CHEST PAIN. DO NOT EXCEED A TOTAL OF 3 DOSES IN 15 MINUTES estradiol 0.01 % (0.1 mg/gram) cream 1 appful VAGINAL DIRECTED Qty: 42.5 3RF Rx Instructions: Using finger technique applied daily for 2 weeks and then thereafter 3 times weekly oxybutynin chloride 10 mg tablet extended release 24hr 10 mg PO DAILY 90 Days Qty: 90 1RF isosorbide mononitrate 60 mg tablet extended release 24 hr 60 mg PO BID Qty: 180 3RF Jardiance 10 mg tablet 10 mg PO DAILY Qty: 90 3RF (DME) FreeStyle Mouniak 14 Day Sensor Kit See Rx Instructions .ROUTE .COMPLEX Qty: 6 3RF Dose Instruction: APPLY 1 SENSOR UNIT SUBCUTANEOUSLY AND CHANGE UNIT EVERY 14 DAYS Rx Instructions: APPLY 1 SENSOR UNIT SUBCUTANEOUSLY AND CHANGE UNIT EVERY 14 DAYS levocetirizine [Xyzal] 5 mg tablet 5 mg PO HS Qty: 90 3RF fluticasone propionate [Allergy Relief (fluticasone)] 50 mcg/actuation spray,suspension 1 spray intranasal DAILY PRN (Reason: ALLERGIES) Qty: 16 11RF bisoprolol fumarate 5 mg tablet 5 mg PO BID Qty: 60 4RF Repatha SureClick 140 mg/mL pen injector See Rx Instructions .ROUTE .COMPLEX Qty: 2 3RF Dose Instruction: INJECT CONTENTS OF 1 PEN SUBCUTANEOUSLY EVERY TWO WEEKS Rx Instructions: INJECT CONTENTS OF 1 PEN SUBCUTANEOUSLY EVERY TWO WEEKS pregabalin 25 mg capsule 25 mg PO HS Qty: 30 2RF pantoprazole 40 mg tablet,delayed release (DR/EC) See Rx Instructions .ROUTE .COMPLEX Qty: 90 1RF Dose Instruction: Take 1 tablet by mouth once daily Rx Instructions: Take 1 tablet by mouth once daily clopidogrel 75 mg tablet 75 mg PO DAILY Qty: 90 1RF Savella 50 mg Tablet 50 mg PO BID Patient Comments: RECEIVES SUPPLY FROM [employer] magnesium oxide 400 mg magnesium tablet 400 mg PO DAILY ezetimibe 10 mg tablet 10 mg PO DAILY azelastine 137 mcg (0.1 %) spray,non-aerosol 1 spray intranasal BIDP PRN (Reason: Allergy Symptoms) Rx Instructions: administer into each nostril Novolin 70/30 U-100 Insulin 100 unit/mL (70-30) suspension 30 unit SQ BID Referrals Follow up/Referrals: Maribel Ambriz APRN [Primary Care Provider, Family Practice] - See instructions Activity Restrictions/Add. Instructions Additional Instructions/Restrictions: You were evaluated in the emergency department for a near syncopal episode. Please follow-up with Dr. Betts Monday. Please return to the ED for any worsening of your condition. Clinical Impressions Clinical Impression: Near syncope, CKD (chronic kidney disease) Instructions Patient Instructions: DI for Syncope in Adults (Fainting) Print Language Print Language: Setswana Discharge ED Provider: Tesfaye Bob Adult HPI General Chief complaint: Dizziness Stated complaint: Low BP, 107/29 Time Seen by Provider: 02/21/25 13:29 Mode of Arrival: Ambulatory Source of Information: Patient and Spouse Description of Symptoms (Recalled from ER Triage Doc. by RN): patient presents to the ED today for shakiness and dizziness. She stated that she was in [employer] at the pharmacy getting refills of her medications and started getting really dizzy and shaky. Lisbteh checked her blood pressure and stated it was 103/29. Patient is a diabetic and she stated her last glucose check was this morning around 8 am, resulting at 123. History of Present Illness HPI narrative: patient is a 74-year-old female PMHx HFpEF, DMT2, CKD, HTN, CAD, hx of CABG (anticoagulated), obesity, NAFLD, history of chest pain and palpitations, hyperparathyroidism who presents to the ED for near syncopal episode that occurred prior to arrival. Patient states she was in the grocery store when she suddenly felt her vision going black, became weak and shaky and had to grab onto something to keep from passing out. Patient states she immediately thought that her blood pressure was low, her took her to urgent care where her blood pressure was a systolic of 107 which she states is low for her. Related Data Home Medications ?Medication ?Instructions ?Recorded ?Confirmed milnacipran 50 mg tablet (Savella) 50 mg PO BID 01/13/25 nitroglycerin 0.4 mg sublingual 0.4 mg sublingual Q5-1 5M PRN Chest 03/09/23 01/13/25 tablet Pain cholecalciferol (vitamin D3) 25 25 mcg PO DAILY 01/13/25 mcg (1,000 unit) capsule magnesium oxide 400 mg PO DAILY Supplement 1 01/13/25 escitalopram oxalate 20 mg tablet 20 mg PO DAILY 08/2201/13/25 ranolazine 1,000 mg 1,000 mg PO BID 08/22/2410/04 tablet,extended release,12 hr azelastine 137 mcg (0.1 %) nasal 1 spray intranasal BI DP PRN 09/05/24 01/13/25 spray Allergy Symptoms ezetimibe 10 mg tablet 10 mg PO DAILY 11/05/24 0810/04 calcitriol 0.25 mcg capsule 0.25 mcg PO Q OTHER DAY 01/13/25 insulin human U-100 NPH-regulr 30 unit SQ BID 11/18/24 01/13/25 70-30 mix 100 unit/mL subcutaneous susp (Novolin 70/30 U-100 Insulin) Previous Rx's ?Medication ?Instructions ?Recorded isosorbide mononitrate 60 mg 60 mg PO BID #180 tabs tablet,extended release 24 hr empagliflozin 10 mg tablet 10 mg PO DAILY Diabetes #90 tabs 09/09/24 (Jardiance) flash glucose sensor (FreeStyle #6 ea 09/30/24 Mounika 14 Day Sensor kit) levocetirizine 5 mg tablet (Xyzal) 5 mg PO HS #90 tabs 11/21/24 fluticasone propionate 50 1 spray intranasal DAILY PRN 12/10/24 mcg/actuation nasal ALLERGIES #16 grams spray,suspension (Allergy Relief (fluticasone)) bisoprolol fumarate 5 mg tablet 5 mg PO BID #60 tabs 0 12/18/24 evolocumab 140 mg/mL subcutaneous See Rx Instructions .Route 12/18/24 pen injector ([employer]) .COMPLEX #2 mL pregabalin 25 mg capsule 25 mg PO HS #30 caps 5 estradiol 0.01% (0.1 mg/gram) 1 appful vaginal DIRE CTED #42.5 12/23/24 vaginal cream grams oxybutynin chloride 10 mg 10 mg PO DAILY 90 days #90 t abs 12/23/24 tablet,extended release 24 hr RSVPreF3 antigen-AS01E 0.5 ml IM ONCE #10 ea adjuvant(PF) 120 mcg/0.5 mL IM suspension, kit (Arexvy (PF)) pantoprazole 40 mg tablet,delayed See Rx Instructions .Route 01/06/25 release .COMPLEX #90 tabs furosemide 40 mg tablet See Rx Instructions PO DAILY 30 01/13/25 days #60 tabs hydralazine 10 mg tablet 10 mg PO BID SBP > 160 #90 t abs 01/13/25 clopidogrel 75 mg tablet 75 mg PO DAILY #90 tabs 02/10 Allergies Allergy/AdvReac Type Severity Reaction Status Date / Time Acucpvx-RYG-EhD Reductase Allergy Severe Unknown Verified 01/13/25 11:18 Inhibitor (Ptjdioe-Yko-Ghw allergy Reductase Inhibitor) reaction Penicillins Allergy Intermediate I-RASH Verified 01/13/25 11:18 losartan Allergy Mild Unknown Verified 01/13/25 11:18 allergy reaction cefuroxime (From Ceftin) Allergy Unknown Verified 01/13/25 11:18 allergy reaction hydrocodone AdvReac Unknown Verified 01/13/25 11:18 allergy reaction PFSH PFS Disclaimer: The information contained in this section may have been updated after the patient was seen, as this information can be updated by other users. Medical History Sore throat Hospital discharge follow-up (HFpEF) heart failure with preserved ejection fraction Angina pectoris Elevated left ventricular end-diastolic pressure (LVEDP) BMS (burning mouth syndrome) Right ear pain Pressure sensation in right ear Acute kidney injury superimposed on chronic kidney disease Elevated brain natriuretic peptide (BNP) level Chest pain Other specified symptoms and signs involving the circulatory and respiratory systems Need for shingles vaccine Encounter for screening for osteoporosis BMI over 35 Renal failure Atrophic vaginitis Peroneal tendon tear Elevated liver enzymes Pneumaturia Breast pain, right Incomplete bladder emptying NSTEMI (non-ST elevated myocardial infarction) BMI 34.0-34.9,adult Neck pain Radicular pain in left arm Right-sided chest wall pain Bloating RLQ abdominal pain Acute gastroenteritis Left elbow pain Left upper arm pain Left shoulder pain Superior labrum pqrvqxuz-yi-kznhagvgy (SLAP) tear of left shoulder Effusion of shoulder joint, left Traumatic tear of supraspinatus tendon of left shoulder Traumatic ecchymosis of ankle Sprain of tarsometatarsal ligament of right foot Right ankle injury Pseudomonas urinary tract infection Edema of right lower extremity High ankle sprain of right lower extremity Yeast infection of the skin bilateral groin areas Hematoma Right otitis media UTI (urinary tract infection) Vaginal yeast infection Metallic taste Thrush, oral Acute effusion of both middle ears URI (upper respiratory infection) Burping Nausea Secondary hyperparathyroidism Hoarseness Dysphagia She is having some swelling difficulty in the modified barium swallow did show some abnormalities noted in the right side of her upper aerodigestive tract. As we do not see any thing on physical exam, I do agree with an EGD being done. She is currently scheduled to have this done next week. She may be having some breakthrough reflux contributing to her symptoms. Constipation, unspecified Abdominal pain Fatigue Neck pain on right side Urinary tract infection symptoms Pharyngitis Sinusitis Rib pain on left side Right upper quadrant pain Left breast mass removed 09/2013 H/O malignant neoplasm of breast Edema of both lower extremities Frequent falls Contusion of left upper arm Head injury Contusion of knee, left Contusion of elbow, left Skin tear of left hand without complication Dehydration, mild Kidney failure stage 3 Sinusitis Labile blood pressure Typical angina Fall Syncope Dyspnea Typical angina Gallstones Discharge from left nipple Awaiting breast MRI at requested by [facility] Breast CA 2013, left Dizziness Chest pain Breast cancer in female Extrapyramidal disorder Restless sleeper Daytime somnolence Abnormal cardiovascular stress test Atypical angina Chest pain Angina pectoris Diastolic dysfunction 02/2018 [facility] Surgical History History of cardiac cath History of lumpectomy of left breast History of esophagogastroduodenoscopy (EGD) 12/2021, [facility], H/O thumb surgery H/O tubal ligation 1980 History of colonoscopy 12/2021, [facility], History of breast biopsy History of coronary artery bypass graft x 1 05/2019, Dr. Puckett Stented coronary artery 08/2018 Family History Mother , at age 68 Congestive heart failure Crohn's disease Father , at age 84 Hypertension Cancer lung and colon ca Sister Diabetes Coronary artery disease Sister Cancer breast Diabetes Brother Coronary artery disease Grandmother Cancer paternal grandmother-colon ca Other No significant family history Social History Smoking Status: Never smoker second hand exposure: Yes alcohol intake: never counseling provided: none substance use type: denies use current occupational status: retired Travel in the last 8 weeks?: None household members: spouse housing: house marital status: number of children: 4 current occupational exposures/hazards: No caffeine: Yes do you feel safe at home: Yes victim of physical abuse: No victim of emotional abuse: No victim of sexual abuse: No would you like helpful sources: No Have you lived/traveled outside [place] in past 30 days?: No Contact w/someone who lives/traveled outside [place] past 30 days?: No Exposure to someone with infectious disease in past 14 days?: No Do you have a fever (greater than 100.4 F or 38 C)?: No Have you tested positive for COVID-19?: No Exposed to someone with COVID-19 in past 14 days?: No Do you have a sore throat?: No Do you have a cough?: No Do you have any weakness?: No Do you have any diarrhea?: No Are you experiencing any unusual bleeding?: No Do you have any muscle aches/pain?: No Do you have any abdominal pain?: No Are you experiencing loss of taste or smell?: No Other Medical History Have you received the Flu Vaccine for this season: No Have you received the Pneumonia Vaccine: Yes ROS Obtained: Yes Systems reviewed as appropriate & no additional complaints except as documented Physical Exam General General appearance: alert and in no apparent distress Head Head exam: atraumatic Eye Eye exam: Present PERRL Neck Neck exam: Present full ROM Respiratory Respiratory exam: Present normal lung sounds bilaterally Cardiovascular Cardiovascular exam: Present regular rate Abdominal Exam Abdominal exam: Present soft Extremities Exam Extremities exam: Present full ROM Back Exam Back exam: Present full ROM Neurological Exam Neurological exam: Present alert and oriented X3 Skin Skin exam: Present warm and dry Medical Decision Making Medical Records Screening: Per USPSTF and CDC recommendations, given the prevalence of disease in our region, it is our hospital?s policy to screen for HIV and viral Hepatitis for all patients aged 18 and over and those with ongoing risk factors. Mitch Inquiry Pt receiving controlled substance: No Vital Signs: 02/21/25 13:29 02/21/25 13:34 02/21/25 13:43 Temperature 98.2 F Temperature Source Oral Pulse Rate 63 61 Pulse Rate [Orthostatic Lying Right] Pulse Rate [Orthostatic Sitting Right] Pulse Rate [Orthostatic Standing Right] Pulse Rate [Right Radial] 65 Respiratory Rate 16 15 20 Blood Pressure 93/66 L Blood Pressure [Orthostatic Lying Right Arm] Blood Pressure [Orthostatic Sitting Right Arm] Blood Pressure [Orthostatic Standing Right Arm] Blood Pressure [Right Arm] 145/49 H Blood Pressure Mean 75 Blood Pressure Mean [Right Arm] 81 Blood Pressure Source [Right Arm] Automatic Cuff Blood Pressure Position [Right Arm] Sitting 02 Sat by Pulse Oximetry 98 99 96 Oxygen Delivery Method Room Air Room Air Room Air 02/21/25 14:12 02/21/25 14:20 02/21/25 14:40 Temperature Temperature Source Pulse Rate 64 62 62 Pulse Rate [Orthostatic Lying Right] Pulse Rate [Orthostatic Sitting Right] Pulse Rate [Orthostatic Standing Right] Pulse Rate [Right Radial] Respiratory Rate 17 14 17 Blood Pressure 137/57 L 123/50 L 129/52 L Blood Pressure [Orthostatic Lying Right Arm] Blood Pressure [Orthostatic Sitting Right Arm] Blood Pressure [Orthostatic Standing Right Arm] Blood Pressure [Right Arm] Blood Pressure Mean 75 74 77 Blood Pressure Mean [Right Arm] Blood Pressure Source [Right Arm] Blood Pressure Position [Right Arm] 02 Sat by Pulse Oximetry 96 96 94 L Oxygen Delivery Method Room Air Room Air Room Air 02/21/25 15:00 02/21/25 15:19 02/21/25 15:19 Temperature Temperature Source Pulse Rate 61 55 L Pulse Rate [Orthostatic Lying Right] Pulse Rate [Orthostatic Sitting Right] Pulse Rate [Orthostatic Standing Right] Pulse Rate [Right Radial] Respiratory Rate 17 15 Blood Pressure 132/55 L 129/55 L Blood Pressure [Orthostatic Lying Right Arm] Blood Pressure [Orthostatic Sitting Right Arm] Blood Pressure [Orthostatic Standing Right Arm] Blood Pressure [Right Arm] Blood Pressure Mean 79 Blood Pressure Mean [Right Arm] Blood Pressure Source [Right Arm] Blood Pressure Position [Right Arm] 02 Sat by Pulse Oximetry 95 94 L Oxygen Delivery Method 02/21/25 15:20 02/21/25 15:22 02/21/25 15:24 Temperature Temperature Source Pulse Rate 66 69 Pulse Rate [Orthostatic Lying Right] 61 Pulse Rate [Orthostatic Sitting Right] 66 Pulse Rate [Orthostatic Standing Right] 65 Pulse Rate [Right Radial] Respiratory Rate 12 13 Blood Pressure 120/56 L 110/49 L Blood Pressure [Orthostatic Lying Right Arm] 129/55 L Blood Pressure [Orthostatic Sitting Right Arm] 120/56 L Blood Pressure [Orthostatic Standing Right Arm] 110/49 L Blood Pressure [Right Arm] Blood Pressure Mean 77 75 Blood Pressure Mean [Right Arm] Blood Pressure Source [Right Arm] Blood Pressure Position [Right Arm] 02 Sat by Pulse Oximetry 97 96 Oxygen Delivery Method Room Air Room Air 02/21/25 15:41 02/21/25 16:00 02/21/25 16:20 Temperature Temperature Source Pulse Rate 56 L 56 L 56 L Pulse Rate [Orthostatic Lying Right] Pulse Rate [Orthostatic Sitting Right] Pulse Rate [Orthostatic Standing Right] Pulse Rate [Right Radial] Respiratory Rate 14 14 13 Blood Pressure 137/53 L 138/64 137/52 L Blood Pressure [Orthostatic Lying Right Arm] Blood Pressure [Orthostatic Sitting Right Arm] Blood Pressure [Orthostatic Standing Right Arm] Blood Pressure [Right Arm] Blood Pressure Mean Blood Pressure Mean [Right Arm] Blood Pressure Source [Right Arm] Blood Pressure Position [Right Arm] 02 Sat by Pulse Oximetry 98 94 L 97 Oxygen Delivery Method 02/21/25 16:40 02/21/25 17:00 02/21/25 17:28 Temperature 98.4 F Temperature Source Oral Pulse Rate 54 L 58 L 88 Pulse Rate [Orthostatic Lying Right] Pulse Rate [Orthostatic Sitting Right] Pulse Rate [Orthostatic Standing Right] Pulse Rate [Right Radial] Respiratory Rate 13 14 17 Blood Pressure 118/53 L 134/57 L 124/84 Blood Pressure [Orthostatic Lying Right Arm] Blood Pressure [Orthostatic Sitting Right Arm] Blood Pressure [Orthostatic Standing Right Arm] Blood Pressure [Right Arm] Blood Pressure Mean Blood Pressure Mean [Right Arm] Blood Pressure Source [Right Arm] Blood Pressure Position [Right Arm] 02 Sat by Pulse Oximetry 96 96 Oxygen Delivery Method Room Air Lab Data Lab Results 02/21/25 13:33: WBC 6.3, RBC 4.05 L, Hgb 12.0 L, Hct 35.9 L, MCV 88.6, MCH 29.6, MCHC 33.4, RDW 13.4, Plt Count 267, MPV 9.9, Neut % (Auto) 48.8, Lymph % (Auto) 40.0, Jess[place] % (Auto) 8.7, Eos % (Auto) 0.8, Baso % (Auto) 0.6, Neut # (Auto) 3.1, Lymph # (Auto) 2.5, Jess[place] # (Auto) 0.6, Eos # (Auto) 0.1, Baso # (Auto) 0.0, S odium 131 L, Potassium 4.4, Chloride 97 L, Carbon Dioxide 25, Anion Gap 13.4, B UN 31 H, Creatinine 1.50 H, Estimated Creat Clear 48, Estimated GFR 34 L, Est GFR ( Amer) 41 L, Glucose 244 H, POC Glucose 270 H, Calcium 8.8, Total Bilirubin 0.7, AST 41 H, ALT 24, Alkaline Phosphatase 57, Troponin I < 0.01, Total Protein 6.9, Albumin 4.2, Globulin 2.7, Albumin/Globulin Ratio 1.6, TSH 2.46, Free T4 0.99 02/21/25 16:17: Troponin I < 0.01 02/21/25 13:33 02/21/25 13:33 Orders (Tests/Meds): ORDERS Category Date Time Status CXR --portable [XR chest portable] Stat Exams 02/21/25 13:35 Completed CBC w/Auto Diff [Complete Blood Count Auto Diff] Stat Lab 02/21/25 13:33 Completed CMP [Comprehensive Metabolic Panel] Stat Lab 02/21/25 13:33 Completed Free T4 (Free Thyroxine) Stat Lab 02/21/25 13:33 Completed POC Glucose,Bedside Routine Lab 02/21/25 13:33 Completed TSH [Thyroid Stimulating Hormone] Stat Lab 02/21/25 13:33 Completed Trop I [Troponin I] Stat Lab 02/21/25 13:33 Completed Troponin I Q3H Lab 02/21/25 16:17 Completed Medical Decision Narrative: In summary, patient is a 74-year-old female PMHx HFpEF, DMT2, CKD, HTN, CAD, hx of CABG (anticoagulated), obesity, NAFLD, history of chest pain and palpitations, hyperparathyroidism who presents to the ED for near syncopal episode that occurred prior to arrival. Patient states she was in the grocery store when she suddenly felt her vision going black, became weak and shaky and had to grab onto something to keep from passing out. Patient states she immediately thought that her blood pressure was low, her took her to urgent care where her blood pressure was a systolic of 107 which she states is low for her. She has taken all of her medications today, denies any chest pain or shortness of breath prior to near syncopal episode. Patient states this has happened to her several times in the past. Upon initial evaluation in the ED she is alert, oriented and cooperative. She is hemodynamically stable, systolic pressure in the 140s. She has elevated blood glucose, 270. Denies fever, chills, body aches, headache, visual disturbance, chest pain, shortness of breath, back pain, abdominal pain, nausea, vomiting. Differential diagnosis include ACS, dissection, pneumonia, cardiomyopathy, hypoglycemia, hypotension, among others. Discussed with patient we will proceed with syncope workup including cardiac enzyme. At this time, patient states she is asymptomatic. Labs reviewed. CBC unremarkable for any leukocytosis, stable H&H. CMP remarkable for sodium of 131, creatinine 1.50 which appears to be baseline. Glucose 270. First troponin < 0.01. Second < 0.01. Chest x-ray unremarkable for any acute findings. Upon reassessment, patient states her condition remains unchanged. She has not had any symptoms while in the ED. Patient states she is feeling well. She remains hemodynamically stable. Discussed with patient she will need to follow- up with her PCP. I also advised her she will need to follow-up with cardiology for her near syncopal episodes. We discussed extremely strict return precautions to the ED, patient and her spouse verbalized understanding. She was ambulatory from the ED without difficulty. Critical Care Critical Care Time Critical Care Time: No
[2025-02-21 13:39] LABS: POC Glucose,Bedside 270 gm/dL (70-110)
[2025-02-21 14:09] LABS: Hematocrit 35.9 % (37.0-47.0); Hemoglobin 12.0 g/dL (12.2-16.2); Immature Granulocytes % 1.1 %; Mean Corpuscular HGB Conc 33.4 g/dL (31.8-35.4); Mean Corpuscular Hemoglobin 29.6 pg (27.0-31.2); Mean Corpuscular Volume 88.6 fl (81-99); Nucleated Red Blood Cells % 0 %; Platelet Count 267 K/mm3 (142-424); Red Blood Count 4.05 M/mm3 (4.20-5.40); Red Cell Distribution Width-SD 43.6 fL; White Blood Count 6.3 K/mm3 (4.8-10.8)
[2025-02-21 14:23] LABS: Alanine Aminotransferase 24 U/L (12-78); Albumin Level 4.2 g/dl (3.5-5.0); Albumin/Globulin Ratio 1.6 (1.1-1.8); Alkaline Phosphatase 57 U/L (38-126); Anion Gap 13.4 mEq/L (5-15); Aspartate Amino Transferase 41 U/L (14-36); Bilirubin,Total 0.7 mg/dl (0.2-1.3); Blood Urea Nitrogen 31 mg/dl (7-17); Calcium 8.8 mg/dl (8.4-10.2); Carbon Dioxide 25 mmol/L (22.0-30.0); Chloride 97 mmol/L (98-107); Creatinine Clearance Estimated 48 mL/min (50-200); Creatinine,Serum 1.50 mg/dl (0.52-1.04); Estimated Glomerular Filt Rate 34 ml/min (>60); GFR (African American) 41 ML/MIN (>60); Globulin 2.7 g/dL (1.3-3.2); Glucose 244 mg/dl (74-100); Potassium 4.4 mmoL/L (3.5-5.1); Sodium 131 mmol/L (136-145); Total Protein,Serum 6.9 g/dl (6.3-8.2)
[2025-02-21 14:39] LABS: Troponin I < 0.01 ng/ml (0.00-0.034)
[2025-02-21 14:52] LABS: Free T4 (Free Thyroxine) 0.99 ng/dl (0.78-2.19)
[2025-02-21 14:54] LABS: Thyroid Stimulating Hormone 2.46 uIU/mL (0.465-4.68)
[2025-02-21 16:49] LABS: Troponin I < 0.01 ng/ml (0.00-0.034)
== END 2025-02-21 17:29 | disposition home or self-care (01) ==
PROVIDERS: Nurse Practitioner; Emergency Provider Student in an Organized Health Care Education/Training Program; PCP Nurse Practitioner Family
DX: R55 Syncope and collapse (principal); N18.9 Chronic kidney disease, unspecified; I10 Essential (primary) hypertension; E11.40 Type 2 diabetes mellitus with diabetic neuropathy, unspecified; I25.10 Atherosclerotic heart disease of native coronary artery without angina pectoris
CPT/HCPCS: 71045; 80053; 82962; 84439; 84443; 84484; 85025; 93005; 99284

== ENCOUNTER 2025-02-26 14:33 | Outpatient (CLI) | payer MEDICARE, SELFPAY ==
--- OUTSIDE RECORDS SUMMARY | 2025-02-26 14:36 | XMS_ITS | Clinical Summary ---
Author Organization [facility] Address [address] [place] [address] Care Team Providers Care Tree Tapping Laborer Name Role Phone Maribel Ambrzi INSURANCE INSPECTOR Primary Care Provider [phone] Allergies Active Allergy Reactions Criticality Noted Date Comments Cefuroxime Rash Low 05/29/2019 Losartan Unknown - Patient st ates they do not know rxn details Low 04/01/2024 Penicillins Rash Low 05/29/2019 Statins Other - please docum ent in the comment field High 05/29/2019 Myalgia and muscle aches Medications furosemide (Lasix) 40 MG tablet TAKE 1 TABLET DAILY. 06/18/19 20 Active clopidogrel (Plavix) 75 MG tablet Take 1 tablet daily 05/30/20 Active Magnesium Oxide 400 MG capsule Take by mouth 1 (one) time each day. 05/30/20 19 Active milnacipran (SavElla) 50 MG tablet Take 1 tablet twice daily 05/30/20 Active ezetimibe (Zetia) 10 MG tablet TAKE 1 TABLET DAILY. 05/30/20 Active escitalopram (Lexapro) 20 MG tablet TAKE 1 TABLET DAILY. 05/30/20 19 Active insulin NPH-insulin regular (INSULIN NPH ISOPHANE [...] Gluc Sensor (FreeStyle Mounika 14 Day Sensor) [facility] 08/09/19 24 Active Repatha SureClick 140 MG/ML solution auto-injector INJECT 1 AUTO INJECTOR SUBCUTANEOUSLY EVERY TWO WEEKS 08/03/19 24 Active calcitriol (Rocaltrol) 0.25 MCG capsule 02/15/20 24 Active gabapentin (Neurontin) 100 MG capsule 02/13/20 24 Active nystatin (Mycostatin) 104102 UNIT/ML suspension 02/13/20 24 Active levocetirizine (Xyzal) 5 MG tablet Take 1 tablet (5 mg) by mouth. 02/14/20 24 Active pregabalin (Lyrica) 25 MG capsule Take 1 capsule by mouth 2 times a day. Active cholecalciferol (Vitamin D-3) 250 MCG (81565 UT) capsule Take 1 capsule by mouth daily. Active oxybutynin XL (Ditropan-XL) 10 MG 24 hr tablet Take 1 tablet by mouth daily. Do not crush, chew, or split. Active furosemide (Lasix) 40 MG tablet Take 1 tablet by mouth as needed (pt takes monday,, sat and sun). Active Azelastine HCl 137 MCG/SPRAY solution Administer 1 spray into each nostril as needed. 10/11/19 25 Active estradiol (Estrace) 0.1 MG/GM vaginal cream Insert 2 g into the vagina daily. 09/24/19 25 Active hydrALAZINE (Apresoline) 25 MG tablet Take 1 tablet by mouth as needed. 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 hemanth marley 04/05/2022 Coronary artery disease 05/29/2019 Diabetes 05/29/2019 Hyperlipidemia 05/29/2019 Hypertension 05/29/2019 Encounters Date Type Department Care Team Description 12/20/2024 11:00 AM EDT Office Visit [facility] [address] [place] [address] Sujata Cullen APRN Stage 3b chronic kidney disease ([facility]) (Primary Dx); Hyperparathyroidism ([facility]); Essential hypertension; Proteinuria, unspecified type; Diabetes mellitus due to underlying condition with diabetic chronic kidney disease, unspecified CKD stage, unspecified whether terminologist insulin use ([facility]); Chronic kidney disease-mineral and bone disorder 12/20/2024 Travel from Last 3 Months Immunizations Immunization Administration Dates Next Due Influenza, High-dose, Split Virus, Trivalent, Injectable, preservative free 04/16/2024 Influenza, high-dose, quadrivalent 05/10/2023 TD (adult), 2 Lf tetanus tox oid, preservative free, adsorbed 08/17/1996 Td (adult) 12/18/2022 Tdap 11/30/2016 Family History Medical History Relation Name Comments Cancer Brother Kris Conversions - Other Brother Kris CAD (cor onary artery disease), cheesh-na coronary artery Diabetes Brother Kris Heart disease [...] Sign Reading Time Taken Comments Blood Pressure 124/53 12/20/2024 11:30 AM EDT Pulse 61 12/20/2024 11:30 AM EDT Temperature 36.7 C (98 F) 08/14/2024 3:08 PM EST Respiratory Rate 18 12/20/2024 11:30 AM EDT Oxygen Saturation 99% 12/20/2024 11:30 AM EDT Inhaled Oxygen Concentration - - Weight 92.1 kg (203 lb) 12/20/2024 11:30 AM EDT Height 157.5 cm (5' 2 ) 12/20/2024 11:30 AM EDT Body Mass Index 37.13 12/20/2024 11:30 AM EDT Plan of Treatment Upcoming Encounters Date Type Department Care Team ([facility] st Contact Info) Description 08/18/2025 10:00 AM EDT [facility]ointment [facility] [place] [address] [address] [place] [address] 08/18/2025 11:00 AM EDT Office Visit [facility] [address] [facility], 2nd [place] [address] Corrina Ariza, INSURANCE INSPECTOR [address] [facility] [address] [facility] [address] [place] [address] 09/05/2025 8:20 AM EDT Office Visit [facility] [address] [place] [address] Sujata Cullen, INSURANCE INSPECTOR [address] [facility] [address] [place] [address] Health Maintenance Due Date Last Done Comments [facility]-Bone Density Scan 1950 [facility]-Depression Screening 1950 [facility]-Hepatitis C Screening 1950 [facility]-Medicare Annual Wellness (AWV) 1950 [facility]-Infant/Child/Adol SDOH Screenings 1950 Diabetes: Dental Exam 1960 [facility]- SDOH Screenings 1968 [facility]-Adult SDOH Screenings 1968 [facility]-Zoster Vaccines (1 of 2) 1969 CT Colonography 09/19/1995 Colonoscopy 09/19/1995 FIT-DNA 09/19/1995 FIT 09/19/1995 FOBT 09/19/1995 Sigmoidoscopy 09/19/1995 [facility]-Colorectal Cancer Screening 09/19/1995 [facility]-RSV Vaccine: 60+ Years or (1 - Risk 60-74 years 1-dose series) 2010 [facility]-Diabetes: Hemoglobin A1C 12/12/2019 06/14/2019 [id number] Vaccine ( season) 2025 07/21/2021, 09/10/2020, 08/13/2020 [facility]-Influenza Vaccine (#1) 2025 04/16/2024, [facility]-Breast Cancer Screening 08/14/2026 08/14/2024, 0 07/17/2023 [facility]-DTaP,Tdap,and Td Vaccines (3 - Td or Tdap) 12/18/2032 12/18/2022, 11/30/2016, 08/17/1996 [facility]-Obesity Intervention Completed 025, 11/03/2023, 08/14/2023, Additional history exists [facility]-Pneumococcal Vaccine: 50+ Years Completed 12/26/2024 HPV Vaccines Aged Out No longer eligi [...] this topic Medical Devices Implanted Type Area Clinical Systems Analyst Device Identifier Shelf Expiration Date Model / Serial / Lot [employer] Vision Eviva Std - [id number] Implanted:Qty: 1 on 08/10/2023 by Lien Arana MD at [facility] Left: Breast Hologic Limited [facility]-[id number] [facility]-E13 -SVISION / / Procedures Procedure Name Priority [...] 07/17/2023 Mammography Breast Diagnostic Tomosynthesis Bilateral at [facility] 08/07/2023 Mammography Breast Post Biopsy Clip Left at [facility] 08/10/2023 Mammography Stereotactic Breast Biopsy Left at [facility] 08/10/2023 Mammography Breast Post Biopsy Clip Left at [facility] 02/16/2024 Mammography Breast Diagnostic Tomosynthesis Left at [facility] BREAST COMPOSITION: There are scattered areas of fibroglandular density. FINDINGS: There are post-lumpectomy changes present in the left breast. There is no evidence of suspicious masses, calcifications, or other abnormal findings. us Corrina Ariza APRN IMG BI PROCEDURES Final [...] <6.0% Children and Adolescents <7.5% . Source: [place] [employer]. Standards of medical care in diabetes, 2017. Diabetes Care.2017:40 (suppl 1):S1-S135. . HbA1c assay performed by an ion-exchange chromatography method that is certified traceable to the DCCT. 06/14/2019 3:55 AM EST 06/14/2019 4:15 AM EST us Linda Pereyra APRN LAB BLOOD ORDERABLES Final Res ult SUNQUEST from Last 3 Months or Most Recently Relevant to Health Maintenance Insurance [facility] MEDIC[facility] Care Teams Tree Tapping Laborer Relationship Specialty Start Date End Date Maribel Ambriz, INSURANCE INSPECTOR [address] [place] [address] PCP - General 07/17/23
--- OUTSIDE RECORDS SUMMARY | 2025-02-26 14:36 | XMS_ITS | Encounter Summary ---
Author Organization Healthcare Address [address] [place] [address] Care Team Providers Care Slip Injector And Applicator Name Role Phone Maxx Matos MD Primary Care Provider [phone] Nola Fay CAMPUS SAFETY OFFICER Primary Care Provider [phone] Maribel Ambriz CAMPUS SAFETY OFFICER Primary Care Provider [phone] Encounter Details Date Type Department Care Team (Late Contact Info) Description 12/13/2019 Orders Only External Location [address] [place] [address] Sarah Oliver MD [address] [place] [address] Social History Tobacco Use Types Packs/Day Years Used Date Smoking Tobacco: Never Assessed Comments Unknown Sex and Gender Information Value Date Recorded Sex Assigned at Not on file Legal Sex Female 8:14 PM EDT Gender Identity Not on file Sexual Orientation Not on file documented as of this encounter Plan of Treatment Upcoming Encounters Date Type Department Care Team (Late Contact Info) Description 08/18/2025 10:00 AM EDT Appointment [facility] [place] [address] [address] [facility] [address] [place] [address] 08/18/2025 11:00 AM EDT Office [facility] [address] [facility], 2nd [place] [address] Corrina Ariza, CAMPUS SAFETY OFFICER [address] [facility] [address] Da[address]le [address] [address] 09/05/2025 8:20 AM EDT Office Visit [facility] [address] [place] [address] Sujata Cullen, OLLIE [address] [address] documented as of this encounter Procedures Procedure [...] on filedocumented in this encounter Care Teams Slip Injector And Applicator Relationship Specialty Start Date End Date Maxx Matos MD [address] [place] [address] PCP - General 10/23/20 11/14/21 Nola Fay APRN [address] [place] [address] PCP - General 11/15/21 07/16/23 Maribel Ambriz APRN [address] [facility] [place] [address] PCP - General 07/17/23 documented as of this encounter
--- OUTSIDE RECORDS SUMMARY | 2025-02-26 14:36 | XMS_ITS | Encounter Summary ---
Author Organization Healthcare Address [address] [place] [address] Care Team Providers Care Bedspread Inspector Name Role Phone Maxx Matos MD Primary Care Provider [phone] Nola Fay HUMANE OFFICER Primary Care Provider [phone] Maribel Ambriz HUMANE OFFICER Primary Care Provider [phone] Encounter Details Date Type Department Care Team (Late Contact Info) Description 09/24/2013 Orders Only External Location [address] [place] [address] Maxx Matos MD [address] [place] [address] Social History Tobacco Use Types Packs/Day Years [...] [facility] [place] [address] [address] [place] [address] 08/18/2025 11:00 AM EDT Office Visit [facility] [address] [facility], 2nd [place] [address] Corrina Ariza, HUMANE OFFICER [address] [facility] Yes[address] Daigle [address] [address] 09/05/2025 8:20 AM EDT Office Visit [facility] [address] [place] [address] Sujata Cullen APRN [address] [address] documented as of this encounter [...] on filedocumented in this encounter Care Teams Bedspread Inspector Relationship Specialty Start Date End Date Maxx Matos MD [address] [place] [address] PCP - General 10/23/20 11/14/21 Nola Fay APRN [address] [place] [address] PCP - General 11/15/21 07/16/23 Maribel Ambriz APRN [address] [facility] [place] [address] PCP - General 07/17/23 documented as of this encounter
--- OUTSIDE RECORDS SUMMARY | 2025-02-26 14:36 | XMS_ITS | Encounter Summary ---
Author Organization Healthcare Address [address] [place] [address] Care Team Providers Care Group Underwriter Name Role Phone Maxx Matos MD Primary Care Provider Nola Fay GRADUATE INTERN Primary Care Provider [phone] Maribel Ambriz GRADUATE INTERN Primary Care Provider [phone] Encounter Details Date Type Department Care Team (Late Contact Info) Description 11/08/2016 Orders Only External Location [address] [place] [address] Maxx Matos MD [address] [place] [address] Social History Tobacco Use Types Packs/Day Years [...] [facility] [place] [address] [address] [place] [address] 08/18/2025 11:00 AM EDT [facility] Visit [facility] [address] [facility], 2nd [place] [address] Corrina Ariza, GRADUATE INTERN [address] [facility] [address]le [address] [address] 09/05/2025 8:20 AM EDT Office Visit [facility] [address] [place] [address] Sujata Cullen APRN [address] [address] documented as of this encounter [...] on filedocumented in this encounter Care Teams Group Underwriter Relationship Specialty Start Date End Date Maxx Matos MD [address] [place] [address] PCP - General 10/23/20 11/14/21 Nola Fay APRN [address] [place] [address] PCP - General 11/15/21 07/16/23 Maribel Ambriz APRN [address] [place] [facility] [place] [address] PCP - General 07/17/23 documented as of this encounter
--- OUTSIDE RECORDS SUMMARY | 2025-02-26 14:36 | XMS_ITS | Encounter Summary ---
Author Organization Healthcare Address [address] [place] [address] Care Team Providers Care Asian Studies Professor Name Role Phone Maxx Matos MD Primary Care Provider [phone] Nola Fay RETAIL BEAUTY SPECIALIST Primary Care Provider [phone] Maribel Ambriz RETAIL BEAUTY SPECIALIST Primary Care Provider [phone] Encounter Details Date Type Department Care Team (Late st Contact Info) Description 09/08/2011 Orders Only External Location [address] [place] [address] Provider, External Social History Tobacco Use Types [...] Care Team (Late st Contact Info) Description 08/18/2025 10:00 AM EDT Appointment [facility] [place] [address] [address] [facility] [address] [place] [address] 08/18/2025 11:00 AM EDT Office Visit [facility] [address] [facility], 2nd [place] [address] Corrina Ariza, RETAIL BEAUTY SPECIALIST [address] [facility] [address] [place] [address] 09/05/2025 8:20 AM EDT Office Visit [facility] [address] [place] [address] Sujata Cullen, RETAIL BEAUTY SPECIALIST [address] [address] documented as of this encounter [...] on filedocumented in this encounter Care Teams Asian Studies Professor Relationship Specialty Start Date End Date Maxx Matos MD [address] [place] [address] PCP - General 10/23/20 11/14/21 Nola Fay APRN [address] [place] [address] PCP - General 11/15/21 07/16/23 Maribel Ambriz APRN [address] [place] [address] PCP - General 07/17/23 documented as of this encounter
--- OUTSIDE RECORDS SUMMARY | 2025-02-26 14:36 | XMS_ITS | Encounter Summary ---
Author Organization Healthcare Address [address] [place] [address] Care Team Providers Care Cardiovascular Technologist Name Role Phone Maxx Matos MD Primary Care Provider [phone] Nola Fay CARDIAC CATH RN Primary Care Provider [phone] Maribel Ambriz CARDIAC CATH RN Primary Care Provider [phone] Encounter Details Date Type Department Care Team (Late Contact Info) Description 10/28/2015 Orders Only External Location [address] [place] [address] Provider, External Social History Tobacco Use Types [...] [facility] [place] [address] [address] [facility] [address] [place] [address] 08/18/2025 11:00 AM EDT Office Visit [facility] [address] [facility], 2nd [place] [address] Corrina Ariza, CARDIAC CATH RN [address] [facility] [address] [place] [address] 09/05/2025 8:20 AM EDT Office Visit [facility] [address] [place] [address] Sujata Cullen, CARDIAC CATH RN [address] [address] documented as of this encounter [...] on filedocumented in this encounter Care Teams Cardiovascular Technologist Relationship Specialty Start Date End Date Maxx Matos MD [address] [place] [address] PCP - General 10/23/20 11/14/21 Nola Fay APRN [address] [place] [address] PCP - General 11/15/21 07/16/23 Maribel Ambriz APRN [address] [place] [address] PCP - General 07/17/23 documented as of this encounter
--- OUTSIDE RECORDS SUMMARY | 2025-02-26 14:36 | XMS_ITS | Encounter Summary ---
Author Organization Healthcare Address [address] [place] [address] Care Team Providers Care Cat Driver Name Role Phone Maxx Matos MD Primary Care Provider [phone] Nola Fay COMMUNITY SERVICE COORDINATOR Primary Care Provider [phone] Maribel Ambriz COMMUNITY SERVICE COORDINATOR Primary Care Provider [phone] Encounter Details Date Type Department Care Team (Late Contact Info) Description 10/28/2014 Orders Only External Location [address] [place] [address] Provider, External Social History Tobacco Use Types [...] Center [facility] [place] [address] [address] [facility] [address] [place] [address] 08/18/2025 11:00 AM EDT Office Visit [facility] [address] [facility], 2nd [place] [address] Corrina Ariza, COMMUNITY SERVICE COORDINATOR [address] [facility] [address] [place] [address] 09/05/2025 8:20 AM EDT Office Visit [facility] [address] [place] [address] Sujata Cullen, COMMUNITY SERVICE COORDINATOR [address] [address] documented as of this encounter [...] on filedocumented in this encounter Care Teams Cat Driver Relationship Specialty Start Date End Date Maxx Matos MD [address] [place] [address] PCP - General 10/23/20 11/14/21 Nola Fay APRN [address] [place] [address] PCP - General 11/15/21 07/16/23 Maribel Ambriz APRN [address] [place] [address] PCP - General 07/17/23 documented as of this encounter
--- OUTSIDE RECORDS SUMMARY | 2025-02-26 14:36 | XMS_ITS | Encounter Summary ---
Author Organization Healthcare Address [address] [place] [address] Care Team Providers Care Sterile Processing Technologist Name Role Phone Maxx Matos MD Primary Care Provider [phone] Nola Fay JINGLE WRITER Primary Care Provider [phone] Maribel Ambriz JINGLE WRITER Primary Care Provider [phone] Encounter Details Date Type Department Care Team (Late Contact Info) Description 12/13/2019 Orders Only External Location [address] [place] [address] Sarah Oliver MD [address] [place] [address] Social History Tobacco Use Types Packs/Day Years [...] [facility] [place] [address] [address] [facility] [address] [place] [address] 08/18/2025 11:00 AM EDT [facility] Visit [facility] [address] [facility], 2nd [place] [address] Corrina Ariza, JINGLE WRITER [address] [facility] Yesenia Daigle [address] [address] 09/05/2025 8:20 AM EDT Office Visit [facility] [address] [place] [address] Sujata Cullen, JINGLE WRITER [address] [address] documented as of this encounter [...] on filedocumented in this encounter Care Teams Sterile Processing Technologist Relationship Specialty Start Date End Date Maxx Matos MD [address] [place] [address] PCP - General 10/23/20 11/14/21 Nola Fay JINGLE WRITER [address] [place] [address] PCP - General 11/15/21 07/16/23 Maribel Ambriz JINGLE WRITER [address] [place] [address] PCP - General 07/17/23 documented as of this encounter
--- OUTSIDE RECORDS SUMMARY | 2025-02-26 14:36 | XMS_ITS | Encounter Summary ---
Author Organization Healthcare Address [address] [place] [address] Care Team Providers Care Staple Side Laster Name Role Phone Maxx Matos MD Primary Care Provider [phone] Nola Fay PHARMACY MANAGER Primary Care Provider [phone] Maribel Ambriz PHARMACY MANAGER Primary Care Provider [phone] Encounter Details Date Type Department Care Team (Late Contact Info) Description 09/09/2013 Orders Only External Location [address] [place] [address] Maxx Matos MD [address] [place] [address] Social History Tobacco Use Types Packs/Day Years [...] Center [facility] [place] [address] [address] [place] [address] 08/18/2025 11:00 AM EDT [facility] Visit [facility] [address] [facility], 2nd [place] [address] Corrina Ariza, PHARMACY MANAGER [address] [facility] Yes[address] Da[address] [address] 09/05/2025 8:20 AM EDT Office Visit [facility] [address] [place] [address] Sujata Cullen APRN [address] [address] documented as of this encounter [...] on filedocumented in this encounter Care Teams Staple Side Laster Relationship Specialty Start Date End Date Maxx Matos MD [address] [place] [address] PCP - General 10/23/20 11/14/21 Nola Fay APRN [address] [place] [address] PCP - General 11/15/21 07/16/23 Maribel Ambriz APRN [address] [place] [address] PCP - General 07/17/23 documented as of this encounter
--- OUTSIDE RECORDS SUMMARY | 2025-02-26 14:36 | XMS_ITS | Encounter Summary ---
Author Organization Healthcare Address [address] [place] [address] Care Team Providers Care Steel Handler Name Role Phone Maxx Matos MD Primary Care Provider [phone] Nola Fay CAMPAIGN MARKETING MANAGER Primary Care Provider [phone] Maribel Ambriz CAMPAIGN MARKETING MANAGER Primary Care Provider [phone] Encounter Details Date Type Department Care Team (Late st Contact Info) Description 11/13/2017 Orders Only External Location [address] [place] [id number] Provider, External Social History Tobacco Use Types [...] [facility] [place] [address] [address] [facility] 800 [place] [address] 08/18/2025 11:00 AM EDT Office Visit [facility] [address] [facility], 2nd [place] [address] Corrina Ariza, CAMPAIGN MARKETING MANAGER [address] [facility] Yes[address] Daigle [facility] [address] [place] [address] 09/05/2025 8:20 AM EDT Office Visit [facility] [address] [place] [address] Sujata Cullen, CAMPAIGN MARKETING MANAGER [address] [address] documented as of this encounter [...] on filedocumented in this encounter Care Teams Steel Handler Relationship Specialty Start Date End Date Maxx Matos MD [address] [place] [address] PCP - General 10/23/20 11/14/21 Nola Fay APRN [address] [place] [address] PCP - General 11/15/21 07/16/23 Maribel Ambriz APRN [address] [place] [address] PCP - General 07/17/23 documented as of this encounter
--- OUTSIDE RECORDS SUMMARY | 2025-02-26 14:36 | XMS_ITS | Encounter Summary ---
Author Organization Healthcare Address [address] [place] [address] Care Team Providers Care Edi Specialist Name Role Phone Maxx Matos MD Primary Care Provider [phone] Nola Fay HEATING AND VENTILATING DRAFTER Primary Care Provider [phone] Maribel Ambriz HEATING AND VENTILATING DRAFTER Primary Care Provider [phone] Encounter Details Date Type Department Care Team (Late Contact Info) Description 06/18/2020 Orders Only External Location 800 [place] [address] Sarah Oliver MD [address] [place] [address] Social History Tobacco Use Types Packs/Day Years [...] [facility] [place] [address] Yesenia Daigle [facility] 800 [place] [address] 08/18/2025 11:00 AM EDT Office Visit [facility] 7[address] [facility], 2nd [place] [address] Corrina Ariza, HEATING AND VENTILATING DRAFTER 800 [facility] Yesenia Daigle [address] [address] 09/05/2025 8:20 AM EDT Office Visit [facility] [address] [place] [address] Sujata Cullen, OLLIE [address] [address] documented as of this encounter [...] on filedocumented in this encounter Care Teams Edi Specialist Relationship Specialty Start Date End Date Maxx Matos MD [address] [place] [address] PCP - General 10/23/20 11/14/21 Nola Fay APRN [address] [place] [address] PCP - General 11/15/21 07/16/23 Maribel Ambriz APRN [address] [place] [address] PCP - General 07/17/23 documented as of this encounter
--- OUTSIDE RECORDS SUMMARY | 2025-02-26 14:36 | XMS_ITS | Encounter Summary ---
Author Organization Healthcare Address [address] [place] [address] Care Team Providers Care Flight Service Specialist Name Role Phone Nola Fay APRN Primary Care Provider [phone] Maribel Ambriz DEBURRER Primary Care Provider [phone] Encounter Details Date Type Department Care Team (Late st Contact Info) Description 01/05/2022 Orders Only External Location 800 [place] [address] Provider, External Social History Tobacco Use Types [...] Breast Care [facility] [place] [address] Yesenia Daigle [facility] [place] 800 [place] [address] 08/18/2025 11:00 AM EDT Office Visit [facility] Center 740 [facility], 2nd [place] [address] Corrina Ariza, DEBURRER 800 [facility]it [address] [place] [address] 09/05/2025 8:20 AM EDT Office Visit [facility] [address] [place] [address] Sujata Cullen, DEBURRER [address] [address] documented as of this encounter Procedures Procedure Name Priority Date/Time Associated Diagnosis Comments MAMMOGRAPHY OUTSIDE IMAGES UPLOAD 01/05/2022 1:14 PM EDT documented in this encounter Results * Mammography Outside Images Upload (01/05/2022 1:14 PM EDT) Anatomical Region Laterality Modality Mammography 01/05/2022 1:14 PM EDT External Provider IMG BI PROCEDURES Final Result documented in this encounter Visit Diagnoses Not on filedocumented in this encounter Care Teams Flight Service Specialist Relationship Specialty Start Date End Date Nola Fay, DEBURRER [address] [place] [address] PCP - General 11/15/21 07/16/23 Maribel Ambriz DEBURRER [address] [place] [address] PCP - General 07/17/23 documented as of this encounter
--- OUTSIDE RECORDS SUMMARY | 2025-02-26 14:36 | XMS_ITS | Encounter Summary ---
Author Organization Healthcare Address [address] [place] [address] Care Team Providers Care Beam Press Operator Name Role Phone Maxx Matos MD Primary Care Provider [phone] Nola Fay COSMETIC SALES Primary Care Provider [phone] Maribel Ambriz COSMETIC SALES Primary Care Provider [phone] Encounter Details Date Type Department Care Team (Late st Contact Info) Description 10/08/2013 Orders Only External Location 800 [place] [address] Provider, External Social History Tobacco Use Types [...] Center [facility] [place] [address] Yesenia Daigle [facility] 800 [place] [address] 08/18/2025 11:[address] EDT [address] [facility] Center 740 [facility], 2nd [place] [address] Corrina Ariza, COSMETIC SALES 800 [facility] Ajit [address] [place] [address] 09/05/2025 8:20 AM EDT Office Visit [facility] [address] [place] [address] Sujata Cullen, COSMETIC SALES [address] [address] documented as of this encounter [...] on filedocumented in this encounter Care Teams Beam Press Operator Relationship Specialty Start Date End Date Maxx Matos MD [address] [place] [address] PCP - General 10/23/20 11/14/21 Nola Fay APRN [address] [place] [address] PCP - General 11/15/21 07/16/23 Maribel Ambriz APRN [address] [place] [address] PCP - General 07/17/23 documented as of this encounter
--- OUTSIDE RECORDS SUMMARY | 2025-02-26 14:36 | XMS_ITS | Encounter Summary ---
Author Organization Healthcare Address [address] [place] [address] Care Team Providers Care Sales Lead Name Role Phone Nola Fay APRN Primary Care Provider [phone] Maribel Ambriz BUOY TENDER Primary Care Provider [phone] Encounter Details Date Type Department Care Team ([facility] Contact Info) Description 01/21/2022 Orders Only External Location 800 [place] [address] Sarah Oliver MD [address] [place] [address] Social History Tobacco Use Types Packs/Day Years [...] Breast Care [facility] [place] [address] Yesenia Daigle Building 800 [place] [address] 08/18/2025 11:00 AM EDT Office Visit [facility] 740 [facility], 2nd [place] [address] Corrina Ariza, BUOY TENDER 800 [facility] Yesenia Swainson [address] [address] 09/05/2025 8:20 AM EDT Office Visit [facility] [address] [place] [address] Sujata Cullen APRN [address] [address] documented as of this encounter [...] on filedocumented in this encounter Care Teams Sales Lead Relationship Specialty Start Date End Date Nola Fay APRN [address] [place] [address] PCP - General 11/15/21 07/16/23 Maribel Ambriz APRN [address] [place] [address] PCP - General 07/17/23 documented as of this encounter
--- OUTSIDE RECORDS SUMMARY | 2025-02-26 14:36 | XMS_ITS | Encounter Summary ---
Author Organization Healthcare Address [address] [place] [address] Care Team Providers Care Airworthiness Inspector Name Role Phone Maxx Matos MD Primary Care Provider [phone] Nola Fay CUTTING PRESSMAN Primary Care Provider [phone] Maribel Ambriz CUTTING PRESSMAN Primary Care Provider [phone] Encounter Details Date Type Department Care Team (Late st Contact Info) Description 10/08/2013 Orders Only External Location 800 [place] [address] Provider, External Social History Tobacco Use Types [...] Breast Care Center [facility] [place] [address] Yesenia Daigle [facility] 800 [place] [address] 08/18/2025 11:00 AM EDT Office Visit [facility] Breast Care Center 740 [facility], 2nd [place] [address] Corrina Ariza, CUTTING PRESSMAN 800 [facility] Ajit [address] [place] [address] 09/05/2025 8:20 AM EDT Office Visit [facility] [address] [place] [address] Sujata Cullen, CUTTING PRESSMAN [address] [address] documented as of this encounter [...] on filedocumented in this encounter Care Teams Airworthiness Inspector Relationship Specialty Start Date End Date Maxx Matos MD [address] [place] [address] PCP - General 10/23/20 11/14/21 Nola Fay APRN [address] [place] [address] PCP - General 11/15/21 07/16/23 Maribel Ambriz APRN [address] [place] [address] PCP - General 07/17/23 documented as of this encounter
--- OUTSIDE RECORDS SUMMARY | 2025-02-26 14:36 | XMS_ITS | Encounter Summary ---
Author Organization Healthcare Address [address] [place] [address] Care Team Providers Care Laundry Manager Name Role Phone Nola Fay APRN Primary Care Provider [phone] Maribel Ambriz WEATHER CLERK Primary Care Provider Encounter Details Date Type Department Care Team (Late st Contact Info) Description 01/05/2022 Orders Only External Location 800 [place] [address] Provider, External Social History Tobacco [...] Center [facility] [place] [address] Yesenia Daigle [facility] 800 [place] [address] 08/18/2025 11:00 AM EDT Office Visit [facility] Breast Care Center 740 [facility], 2nd [place] [address] Corrina Ariza, WEATHER CLERK 800 [facility] Ajit [address] [place] [address] 09/05/2025 8:20 AM EDT Office Visit [facility] [address] [place] [address] Sujata Cullen, WEATHER CLERK [address] [address] documented as of this encounter [...] on filedocumented in this encounter Care Teams Laundry Manager Relationship Specialty Start Date End Date Nola Fay APRN [address] [place] [address] PCP - General 11/15/21 07/16/23 Maribel Ambriz APRN [address] [place] [address] PCP - General 07/17/23 documented as of this encounter
--- OUTSIDE RECORDS SUMMARY | 2025-02-26 14:36 | XMS_ITS | Encounter Summary ---
Author Organization Healthcare Address [address] [place] [address] Care Team Providers Care Utility Specialist Name Role Phone Maxx Matos MD Primary Care Provider [phone] Nola Fay AUDIOVISUAL LEAD TECHNICIAN Primary Care Provider [phone] Maribel Ambriz AUDIOVISUAL LEAD TECHNICIAN Primary Care Provider [phone] Encounter Details Date Type Department Care Team (Late Contact Info) Description 10/13/2015 Orders Only External Location 800 [place] [address] Provider, External Social History Tobacco Use Types [...] Center [facility] [place] [address] Yesenia Daigle [facility] 800 [place] [address] 08/18/2025 11:00 AM EDT Office Visit [facility] Breast Care Center 740 [facility], 2nd [place] [address] Corrina Ariza, AUDIOVISUAL LEAD TECHNICIAN 800 [facility] Ajit [address] [place] [address] 09/05/2025 8:20 AM EDT Office Visit [facility] [address] [place] [address] Sujata Cullen, AUDIOVISUAL LEAD TECHNICIAN [address] [address] documented as of this encounter [...] on filedocumented in this encounter Care Teams Utility Specialist Relationship Specialty Start Date End Date Maxx Matos MD [address] [place] [address] PCP - General 10/23/20 11/14/21 Nola Fay APRN [address] [place] [address] PCP - General 11/15/21 07/16/23 Maribel Ambriz APRN [address] [place] [address] PCP - General 07/17/23 documented as of this encounter
--- OUTSIDE RECORDS SUMMARY | 2025-02-26 14:36 | XMS_ITS | Encounter Summary ---
Author Organization Healthcare Address [address] [place] [address] Care Team Providers Care Dx Board Operator Name Role Phone Maxx Matos MD Primary Care Provider [phone] Nola Fay APPLIANCE REPAIR TECHNICIAN Primary Care Provider [phone] Maribel Ambriz APPLIANCE REPAIR TECHNICIAN Primary Care Provider [phone] Encounter Details Date Type Department Care Team (Late st Contact Info) Description 11/25/2019 Orders Only External Location 800 [place] [address] Provider, External Social History Tobacco Use Types [...] Breast Care Center [facility] [place] [address] Yesenia Daigle [facility] 800 [place] [address] 08/18/2025 11:00 AM EDT Office Visit [facility] Breast Care Center 740 [facility], 2nd [place] [address] Corrina Ariza, APPLIANCE REPAIR TECHNICIAN 800 [facility] Ajit [address] [place] [address] 09/05/2025 8:20 AM EDT Office Visit [facility] [address] [place] [address] Sujata Cullen, APPLIANCE REPAIR TECHNICIAN [address] [address] documented as of this encounter [...] on filedocumented in this encounter Care Teams Dx Board Operator Relationship Specialty Start Date End Date Maxx Matos MD [address] [place] [address] PCP - General 10/23/20 11/14/21 Nola Fay APRN [address] [place] [address] PCP - General 11/15/21 07/16/23 Maribel Ambriz APRN [address] [place] [address] PCP - General 07/17/23 documented as of this encounter
--- OUTSIDE RECORDS SUMMARY | 2025-02-26 14:36 | XMS_ITS | Encounter Summary ---
Author Organization Healthcare Address [address] [place] [address] Care Team Providers Care Process Control Supervisor Name Role Phone Maxx Matos MD Primary Care Provider [phone] Nola Fay FISHER TRAWL NET Primary Care Provider [phone] Maribel Ambriz FISHER TRAWL NET Primary Care Provider [phone] Encounter Details Date Type Department Care Team (Late Contact Info) Description 11/15/2018 Orders Only External Location 800 [place] [address] Provider, External Social History Tobacco Use Types [...] Breast Care Center [facility] [place] [address] Yesenia Daigle [facility] 800 [place] [address] 08/18/2025 11:00 AM EDT Office Visit [facility] Breast Care Center 740 [facility], 2nd [place] [address] Corrina Ariza, FISHER TRAWL NET 800 [facility] Yesenia Daigle [facility] Ajit [address] [place] [address] 09/05/2025 8:20 AM EDT Office Visit [facility] [address] [place] [address] Sujata Cullen, FISHER TRAWL NET [address] [address] documented as of this encounter [...] on filedocumented in this encounter Care Teams Process Control Supervisor Relationship Specialty Start Date End Date Maxx Matos MD [address] [place] [address] PCP - General 10/23/20 11/14/21 Nola Fay APRN [address] [place] [address] PCP - General 11/15/21 07/16/23 Maribel Ambriz APRN [address] [place] [address] PCP - General 07/17/23 documented as of this encounter
--- OUTSIDE RECORDS SUMMARY | 2025-02-26 14:36 | XMS_ITS | Encounter Summary ---
Author Organization Healthcare Address [address] [place] [address] Care Team Providers Care Spike Machine Feeder Name Role Phone Maxx Matos MD Primary Care Provider [phone] Nola Fay PANCAKE PROFESSIONAL Primary Care Provider [phone] Maribel Ambriz PANCAKE PROFESSIONAL Primary Care Provider [phone] Encounter Details Date Type Department Care Team (Late st Contact Info) Description 10/08/2013 Orders Only External Location 800 [place] [address] Provider, External Social History Tobacco Use Types [...] Breast Care Center [facility] [place] [address] Yesenia Daigle [facility] 800 [place] [address] 08/18/2025 11:00 AM EDT Office Visit [facility] Breast Care Center 740 [facility], 2nd [place] [address] Corrina Ariza, PANCAKE PROFESSIONAL 800 [facility] Ajit [address] [place] [address] 09/05/2025 8:20 AM EDT Office Visit [facility] [address] [place] [address] Sujata Cullen, PANCAKE PROFESSIONAL [address] [address] documented as of this encounter [...] on filedocumented in this encounter Care Teams Spike Machine Feeder Relationship Specialty Start Date End Date Maxx Matos MD [address] [place] [address] PCP - General 10/23/20 11/14/21 Nola Fay APRN [address] [place] [address] PCP - General 11/15/21 07/16/23 Maribel Ambriz APRN [address] [place] [address] PCP - General 07/17/23 documented as of this encounter
--- OUTSIDE RECORDS SUMMARY | 2025-02-26 14:36 | XMS_ITS | Encounter Summary ---
Author Organization Healthcare Address [address] [place] [address] Care Team Providers Care Clinical Allergist Name Role Phone Maxx Matos MD Primary Care Provider [phone] Nola Fay ASPHALT MIXING MACHINE OPERATOR Primary Care Provider [phone] Maribel Ambriz ASPHALT MIXING MACHINE OPERATOR Primary Care Provider [phone] Encounter Details Date Type Department Care Team (Late Contact Info) Description 09/24/2013 Orders Only External Location 800 [place] [address] Maxx Matos MD [address] [place] [address] Social History Tobacco Use Types Packs/Day Years [...] Breast Care Center [facility] [place] [address] Yesenia Daigle Building 800 [place] [address] 08/18/2025 11:00 AM EDT [facility] Visit [facility] 740 [facility], 2nd [place] [address] Corrina Ariza, ASPHALT MIXING MACHINE OPERATOR 800 [facility] Yesenia Daigle [address] [address] 09/05/2025 8:20 AM EDT [facility] [address] [place] [address] Sujata Cullen APRN [address] [address] documented as of this encounter [...] filedocumented in this encounter Care Teams Clinical Allergist Relationship Specialty Start Date End Date Maxx Matos MD [address] [place] [address] PCP - General 10/23/20 11/14/21 Nola Fay APRN [address] [place] [address] PCP - General 11/15/21 07/16/23 Maribel Ambriz APRN [address] [place] [address] PCP - General 07/17/23 documented as of this encounter
--- OUTSIDE RECORDS SUMMARY | 2025-02-26 14:36 | XMS_ITS | Encounter Summary ---
Author Organization Healthcare Address [address] [place] [address] Care Team Providers Care Page Makeup System Operator Name Role Phone Nola Fay APRN Primary Care Provider [phone] Maribel Ambriz CAGE MANAGER Primary Care Provider [phone] Encounter Details Date Type Department Care Team (Late st Contact Info) Description 12/21/2021 Orders Only External Location 800 [place] [address] Provider, External Social History Tobacco [...] Breast Care Center [facility] [place] [address] Yesenia Daigle [facility] 800 [place] [address] 08/18/2025 11:00 AM EDT Office Visit [facility] Breast Care Center 740 [facility], 2nd [place] [address] Corrina Ariza, CAGE MANAGER 800 [facility] Ajit [address] [place] [address] 09/05/2025 8:20 AM EDT Office Visit [facility] [address] [place] [address] Sujata Cullen, CAGE MANAGER [address] [address] documented as of this encounter Procedures Procedure Name Priority Date/Time Associated Diagnosis Comments MAMMOGRAPHY OUTSIDE IMAGES UPLOAD 12/21/2021 1:12 PM EDT documented in this encounter Results * Mammography Outside Images Upload (12/21/2021 1:12 PM EDT) Anatomical Region Laterality Modality Mammography 12/21/2021 1:12 PM EDT External Provider IMG BI PROCEDURES Final Result documented in this encounter Visit Diagnoses Not on filedocumented in this encounter Care Teams Page Makeup System Operator Relationship Specialty Start Date End Date Nola Fay, CAGE MANAGER [address] [place] [address] PCP - General 11/15/21 07/16/23 Maribel Ambriz CAGE MANAGER [address] [place] [address] PCP - General 07/17/23 documented as of this encounter
--- OUTSIDE RECORDS SUMMARY | 2025-02-26 14:36 | XMS_ITS | Encounter Summary ---
Author Organization Healthcare Address [address] [place] [address] Care Team Providers Care Boardinghouse Keeper Name Role Phone Maxx Matos MD Primary Care Provider [phone] Nola Fay SLITTER AND REWINDER Primary Care Provider [phone] Maribel Ambriz SLITTER AND REWINDER Primary Care Provider [phone] Encounter Details Date Type Department Care Team (Late Contact Info) Description 09/03/2012 Orders Only External Location 800 [place] [address] Maxx Matos MD [address] [place] [address] Social History Tobacco Use Types Packs/Day Years [...] Center [facility] [place] [address] Yesenia Daigle Building 800 [place] [address] 08/18/2025 11:00 AM EDT [facility] Visit [facility] 740 [facility], 2nd [place] [address] Corrina Ariza, SLITTER AND REWINDER 800 [facility] Yesenia Daigle [address] [address] 09/05/2025 8:20 AM EDT Office Visit [facility] [address] [place] [address] Sujtaa Cullen APRN [address] [address] documented as of this encounter [...] on filedocumented in this encounter Care Teams Boardinghouse Keeper Relationship Specialty Start Date End Date Maxx Matos MD [address] [place] [address] PCP - General 10/23/20 11/14/21 Nola Fay APRN [address] [place] [address] PCP - General 11/15/21 07/16/23 Maribel Ambriz APRN [address] [place] [address] PCP - General 07/17/23 documented as of this encounter
--- OUTSIDE RECORDS SUMMARY | 2025-02-26 14:36 | XMS_ITS | Encounter Summary ---
Author Organization Healthcare Address [address] [place] [address] Care Team Providers Care Bunch Maker Name Role Phone Maxx Matos MD Primary Care Provider [phone] Nola Fay ASSOCIATE PROFESSOR OF GEOGRAPHY Primary Care Provider [phone] Maribel Ambriz ASSOCIATE PROFESSOR OF GEOGRAPHY Primary Care Provider [phone] Encounter Details Date Type Department Care Team (Late Contact Info) Description 12/01/2020 Orders Only External Location 800 [place] [address] Sarah Oliver MD [address] [place] [address] Social History Tobacco Use Types Packs/Day Years [...] Breast Care Center [facility] [place] [address] Yesenia Swainson [facility] 800 [place] [address] 08/18/2025 11:00 AM EDT [facility] [address] [facility], 2nd [place] [address] Corrina Ariza, ASSOCIATE PROFESSOR OF GEOGRAPHY [address] Yesenia Daigle [facility] Ajit [address] [place] [address] 09/05/2025 8:20 AM EDT Office Visit [facility] [address] [place] [address] Sujata Cullen, ASSOCIATE PROFESSOR OF GEOGRAPHY [address] [facility] [address] [place] [address] documented as of this encounter Procedures [...] on filedocumented in this encounter Care Teams Bunch Maker Relationship Specialty Start Date End Date Maxx Matos MD [address] [place] [address] PCP - General 10/23/20 11/14/21 Nola Fay APRN [address] [place] [address] PCP - General 11/15/21 07/16/23 Maribel Ambriz APRN [address] [place] [address] PCP - General 07/17/23 documented as of this encounter
--- NOTE | 2025-02-26 15:00 | CT_ITS ---
FINAL REPORT TECHNIQUE: 12/18/2022 CLINICAL HISTORY: speech difficulty,dizziness,near syncope,arm weakn scanned twice to catch 40 second delay COMPARISON: Axial imaging of the brain was obtained after the intravenous administration of contrast. Reformatted images were also obtained and reviewed. This study was performed with techniques to keep radiation doses as low as reasonably achievable (ALARA). Individualized dose reduction techniques using automated exposure control or adjustment of mA and/or kV according to the patient's size were employed. FINDINGS: The ventricles are normal in size. There is no evidence of hemorrhage. No masses are identified. No extra-axial fluid is seen. The sinuses are normal. There is no acute osseous abnormality. There is no abnormal contrast-enhancement. IMPRESSION: Unremarkable exam. No abnormal contrast-enhancement. Reviewed, Interpreted and Dictated by Scott Wong MD Transcribed by Rosa Edwards Authenticated and . [facility]
[2025-02-26] MEDS: IOPAMIDOL-300 (61%) 100ML VIAL 100 ML IV (15:35)
[2025-02-26] MEDS: SODIUM CHLORIDE 0.9% 10ML SYR (RAD ONLY) 10 ML IV (15:35)
== END 2025-02-26 23:59 | disposition home or self-care (01) ==
LOC: RAD 14:34
PROVIDERS: PCP Nurse Practitioner Family; Visit Provider Nurse Practitioner
DX: R47.9 Unspecified speech disturbances (principal); R42 Dizziness and giddiness; R55 Syncope and collapse; R29.898 Other symptoms and signs involving the musculoskeletal system
CPT/HCPCS: 70460; Q9967

== ENCOUNTER 2025-03-05 08:49 | Outpatient (CLI) | payer MEDICARE, SELFPAY ==
--- NOTE | 2025-03-05 09:00 | CA_ITS ---
FINAL REPORT TECHNIQUE: Grayscale, color Doppler and duplex Doppler ultrasound of the kidneys, aorta and renal arteries was performed. Multiple velocities were measured. CLINICAL HISTORY: HTN, Renal cysts bilaterally FINDINGS: Aorta velocity: 77 cm/sec Right kidney: 11.0 cm. Small cyst. No hydronephrosis. Right intrarenal RI: 0.83-0.89 Right renal artery velocity: 198 cm/sec. Right RAR (Renal artery-Aortic Ratio): 2.57 Left Kidney: 10.8 cm. Lower pole cysts. No hydronephrosis. Left intrarenal RI: 0.87-0.90 Left renal artery velocity: 153 cm/sec. Left RAR (Renal Artery-Aortic Ratio): 1.98 IMPRESSION: Less than 60% right renal artery stenosis. No evidence of renal artery stenosis on the left. CT angiogram or postcontrast MR angiogram would be more sensitive for evaluation of possible renal artery stenosis. Reviewed, Interpreted and Dictated by Lina Norton MD Transcribed by Annalise Rizo Authenticated and [facility]
== END 2025-03-05 23:59 | disposition home or self-care (01) ==
LOC: RT 08:50
PROVIDERS: PCP Nurse Practitioner Family; Visit Provider Physician Assistant
DX: I70.1 Atherosclerosis of renal artery (principal); I95.9 Hypotension, unspecified; I10 Essential (primary) hypertension; N28.1 Cyst of kidney, acquired
CPT/HCPCS: 93976

== ENCOUNTER 2025-03-27 10:59 | Outpatient (CLI) | payer MEDICARE, SELFPAY ==
--- OUTSIDE RECORDS SUMMARY | 2025-03-27 11:05 | XMS_ITS | Encounter Summary ---
Author Organization Healthcare Address [address] [place] [address] Care Team Providers Care Cub Reporter Name Role Phone Maxx Matos MD Primary Care Provider [phone] Nola Fay SCANNER SUPERVISOR Primary Care Provider [phone] Maribel Ambriz SCANNER SUPERVISOR Primary Care Provider [phone] Encounter Details Date Type Department Care Team (Late Contact Info) Description 09/03/2012 Orders Only External Location 800 [place] [address] Maxx Matos MD [address] [place] [address] Social History Tobacco Use Types Packs/Day Years [...] [facility] [place] [address] Yes[address] Daigle Building 800 [place] [address] 08/18/2025 11:00 AM EDT Office Visit [facility] [address] [facility], 2nd [place] [address] Corrina Ariza, SCANNER SUPERVISOR 800 [facility] Yesenia Daigle [address] [address] 09/05/2025 8:20 AM EDT Office Visit [facility] [address] [place] [address] Sujata Cullen APRN [address] [address] documented as of this encounter [...] on filedocumented in this encounter Care Teams Cub Reporter Relationship Specialty Start Date End Date Maxx Matos MD [address] [place] [address] PCP - General 10/23/20 11/14/21 Nola Fay APRN [address] [place] [address] PCP - General 11/15/21 07/16/23 Maribel Ambriz APRN [address] [place] [address] PCP - General 07/17/23 documented as of this encounter
--- OUTSIDE RECORDS SUMMARY | 2025-03-27 11:05 | XMS_ITS | Encounter Summary ---
Author Organization Healthcare Address [address] [place] [address] Care Team Providers Care Marble Cutter Name Role Phone Maxx Matos MD Primary Care Provider [phone] Nola Fay NEPHROLOGY NURSE Primary Care Provider [phone] Maribel Ambriz NEPHROLOGY NURSE Primary Care Provider [phone] Encounter Details Date Type Department Care Team (Late Contact Info) Description 06/18/2020 Orders Only External Location 800 [place] [address] Sarah Oliver MD [address] [place] [address] Social History Tobacco Use Types Packs/Day Years [...] [facility] [place] [address] Yesenia Daigle [facility] 800 [place] [address] 08/18/2025 11:00 AM EDT Office Visit [facility] [address] [facility], 2nd [place] [address] Corrina Ariza, NEPHROLOGY NURSE 800 [facility] Yesenia Daigle [address] [address] 09/05/2025 8:20 AM EDT Office Visit [facility] [address] [place] [address] Sujata Cullen, OLLIE [address] [address] documented as of this encounter [...] on filedocumented in this encounter Care Teams Marble Cutter Relationship Specialty Start Date End Date Maxx Matos MD [address] [place] [address] PCP - General 10/23/20 11/14/21 Nola Fay APRN [address] [place] [address] PCP - General 11/15/21 07/16/23 Maribel Ambriz APRN [address] [place] [address] PCP - General 07/17/23 documented as of this encounter
--- OUTSIDE RECORDS SUMMARY | 2025-03-27 11:05 | XMS_ITS | Encounter Summary ---
Author Organization Healthcare Address [address] [place] [address] Care Team Providers Care Manager Of Maintenance Name Role Phone Maxx Matos MD Primary Care Provider [phone] Nola Fay COMPLIANCE ADVISOR Primary Care Provider [phone] Maribel Ambriz COMPLIANCE ADVISOR Primary Care Provider [phone] Encounter Details Date Type Department Care Team (Late Contact Info) Description 09/09/2013 Orders Only External Location 800 [place] [address] Maxx Matos MD [address] [place] [address] Social History Tobacco Use Types Packs/Day Years [...] Breast Care [facility] [place] [address] [address]ig[address] Building 800 [place] [address] 08/18/2025 11:00 AM EDT Office Visit [facility] [address] [facility], 2nd [place] [address] Corrina Ariza, COMPLIANCE ADVISOR [address] [facility] Yesenia Daigle [address] [address] 09/05/2025 8:20 AM EDT [facility] [address] [place] [address] Sujata Cullen APRN [address] [address] documented as of this encounter [...] filedocumented in this encounter Care Teams Manager Of Maintenance Relationship Specialty Start Date End Date Maxx Matos MD [address] [place] [address] PCP - General 10/23/20 11/14/21 Nola Fay APRN [address] [place] [address] PCP - General 11/15/21 07/16/23 Maribel Ambriz APRN [address] [place] [address] PCP - General 07/17/23 documented as of this encounter
--- OUTSIDE RECORDS SUMMARY | 2025-03-27 11:05 | XMS_ITS | Encounter Summary ---
Author Organization Healthcare Address [address] [place] [address] Care Team Providers Care Supervisor Pumping Station Name Role Phone Maxx Matos MD Primary Care Provider [phone] Nola Fay RIPENING ROOM ATTENDANT Primary Care Provider [phone] Maribel Ambriz RIPENING ROOM ATTENDANT Primary Care Provider [phone] Encounter Details Date Type Department Care Team (Late Contact Info) Description 12/13/2019 Orders Only External Location 800 [place] [address] Sarah Oliver MD [address] [place] [address] Social History Tobacco Use Types Packs/Day Years [...] [facility] [place] [address] Yesenia Daigle [facility] 800 [place] [address] 08/18/2025 11:00 AM EDT Office Visit [facility] [address] [facility], 2nd [place] [address] Corrina Ariza, RIPENING ROOM ATTENDANT 800 [facility] Yesenia Daigle [address] [address] 09/05/2025 8:20 AM EDT Office Visit [facility] [address] [place] [address] Sujata Cullen, OLLIE [address] [address] documented as of this encounter [...] on filedocumented in this encounter Care Teams Supervisor Pumping Station Relationship Specialty Start Date End Date Maxx Matos MD [address] [place] [address] PCP - General 10/23/20 11/14/21 Nola Fay APRN [address] [place] [address] PCP - General 11/15/21 07/16/23 Maribel Ambriz APRN [address] [facility] [place] [address] PCP - General 07/17/23 documented as of this encounter
--- OUTSIDE RECORDS SUMMARY | 2025-03-27 11:05 | XMS_ITS | Encounter Summary ---
Author Organization Healthcare Address [address] [place] [address] Care Team Providers Care Wood Casket Assembler Name Role Phone Nola Fay APRN Primary Care Provider [phone] Maribel Ambriz SMALL PRODUCTS ASSEMBLER Primary Care Provider [phone] Encounter Details Date Type Department Care Team (Late st Contact Info) Description 01/05/2022 Orders Only External Location 800 [place] [address] Provider, External Social History Tobacco [...] Center [facility] [place] [address] Yesenia Daigle [facility] 800 [place] [address] 08/18/2025 11:00 AM EDT Office Visit [facility] [address] [facility], 2nd [place] [address] Corrina Ariza, SMALL PRODUCTS ASSEMBLER 800 [facility] [address] [place] [address] 09/05/2025 8:20 AM EDT Office Visit [facility] [address] [place] [address] [place] [address] Sujata Cullen, SMALL PRODUCTS ASSEMBLER [address] [address] documented as of this encounter [...] on filedocumented in this encounter Care Teams Wood Casket Assembler Relationship Specialty Start Date End Date Nola Fay, SMALL PRODUCTS ASSEMBLER [address] [place] [address] PCP - General 11/15/21 07/16/23 Maribel Ambriz SMALL PRODUCTS ASSEMBLER [address] [place] [address] PCP - General 07/17/23 documented as of this encounter
--- OUTSIDE RECORDS SUMMARY | 2025-03-27 11:05 | XMS_ITS | Encounter Summary ---
Author Organization Healthcare Address [address] [place] [address] Care Team Providers Care Anger Control Counselor Name Role Phone Maxx Matos MD Primary Care Provider [phone] Nola Fay PUBLIC RELATIONS STUDIES DIRECTOR Primary Care Provider [phone] Maribel Ambriz PUBLIC RELATIONS STUDIES DIRECTOR Primary Care Provider Encounter Details Date Type Department Care Team (Late st Contact Info) Description 11/25/2019 Orders Only External Location 800 [place] [address] Provider, External Social History Tobacco Use Types [...] Breast Care [facility] [place] [address] Yesenia Daigle [facility] 800 [place] [address] 08/18/2025 11:00 AM EDT Office Visit [facility] [address] [facility], 2nd [place] [address] Corrina Ariza, PUBLIC RELATIONS STUDIES DIRECTOR [address] [facility] [address] [place] [address] 09/05/2025 8:20 AM EDT Office Visit [facility] [address] [place] [address] Sujata Cullen, PUBLIC RELATIONS STUDIES DIRECTOR [address] [address] documented as of this [...] on filedocumented in this encounter Care Teams Anger Control Counselor Relationship Specialty Start Date End Date Maxx Matos MD [address] [place] [address] PCP - General 10/23/20 11/14/21 Nola Fay APRN [address] [place] [address] PCP - General 11/15/21 07/16/23 Maribel Ambriz APRN [address] [place] [address] PCP - General 07/17/23 documented as of this encounter
--- OUTSIDE RECORDS SUMMARY | 2025-03-27 11:05 | XMS_ITS | Encounter Summary ---
Author Organization Healthcare Address [address] [place] [address] Care Team Providers Care Assignment Manager Name Role Phone Maxx Matos MD Primary Care Provider [phone] Nola Fay SENIOR QUALITY ANALYST Primary Care Provider [phone] Maribel Ambriz SENIOR QUALITY ANALYST Primary Care Provider [phone] Encounter Details Date Type Department Care Team (Late Contact Info) Description 11/15/2018 Orders Only External Location 800 [place] [address] Provider, External Social History Tobacco Use Types [...] Breast Care [facility] [place] [address] Yesenia Daigle [facility] 800 [place] [address] 08/18/2025 11:00 AM EDT Office Visit [facility] 7[address] [facility], 2nd [place] [address] Corrina Ariza, SENIOR QUALITY ANALYST 800 [facility] Yesenia Daigle [facility] [address] [place] [address] 09/05/2025 8:20 AM EDT Office Visit [facility] [address] [place] [address] Sujata Cullen, SENIOR QUALITY ANALYST [address] [address] documented as of this encounter [...] on filedocumented in this encounter Care Teams Assignment Manager Relationship Specialty Start Date End Date Maxx Matos MD [address] [place] [address] PCP - General 10/23/20 11/14/21 Nola Fay APRN [address] [place] [address] PCP - General 11/15/21 07/16/23 Maribel Ambriz APRN [address] [place] [address] PCP - General 07/17/23 documented as of this encounter
--- OUTSIDE RECORDS SUMMARY | 2025-03-27 11:05 | XMS_ITS | Encounter Summary ---
Author Organization Healthcare Address [address] [place] [address] Care Team Providers Care Clarifying Plant Operator Name Role Phone Maxx Matos MD Primary Care Provider [phone] Nola Fay LOSS PREVENTION MANAGER Primary Care Provider [phone] Maribel Ambriz LOSS PREVENTION MANAGER Primary Care Provider [phone] Encounter Details Date Type Department Care Team (Late st Contact Info) Description 11/13/2017 Orders Only External Location 800 [place] [address] Provider, External Social History Tobacco Use Types [...] Center [facility] [place] [address] Yesenia Daigle [facility] 800 [place] [address] 08/18/2025 11:00 AM EDT Office Visit [facility] [address] [facility], 2nd [place] [address] Corrina Ariza, LOSS PREVENTION MANAGER [address] [facility] Yesenia Daigle [facility] [address] [place] [address] 09/05/2025 8:20 AM EDT Office Visit [facility] [address] [place] [address] Sujata Cullen, LOSS PREVENTION MANAGER [address] [address] documented as of this encounter [...] on filedocumented in this encounter Care Teams Clarifying Plant Operator Relationship Specialty Start Date End Date Maxx Matos MD [address] [place] [address] PCP - General 10/23/20 11/14/21 Nola Fay APRN [address] [place] [address] PCP - General 11/15/21 07/16/23 Maribel Ambriz APRN [address] [place] [address] PCP - General 07/17/23 documented as of this encounter
--- OUTSIDE RECORDS SUMMARY | 2025-03-27 11:05 | XMS_ITS | Encounter Summary ---
Author Organization Healthcare Address [address] [place] [address] Care Team Providers Care Basket Turner Name Role Phone Maxx Matos MD Primary Care Provider [phone] Nola Fay FROG FARMER Primary Care Provider [phone] Maribel Ambriz FROG FARMER Primary Care Provider [phone] Encounter Details Date Type Department Care Team (Late Contact Info) Description 12/01/2020 Orders Only External Location 800 [place] [address] Sarah Oliver MD [address] [place] [address] Social History Tobacco Use Types Packs/Day Years [...] Breast Care [facility] [place] [address] Yesenia Swainson [facility] 800 [place] [address] 08/18/2025 11:00 AM EDT Office Visit [facility] [address] [facility], 2nd [place] [address] Corrina Ariza, FROG FARMER [address] Yesenia Daigle [facility] [address] [place] [address] 09/05/2025 8:20 AM EDT Office Visit [facility] [address] [place] [address] Sujata Cullen, FROG FARMER [address] [facility] [address] [place] [address] documented as of this encounter [...] on filedocumented in this encounter Care Teams Basket Turner Relationship Specialty Start Date End Date Maxx Matos MD [address] [place] [address] PCP - General 10/23/20 11/14/21 Nola Fay APRN [address] [place] [address] PCP - General 11/15/21 07/16/23 Maribel Ambriz APRN [address] [place] [address] PCP - General 07/17/23 documented as of this encounter
--- OUTSIDE RECORDS SUMMARY | 2025-03-27 11:05 | XMS_ITS | Encounter Summary ---
Author Organization Healthcare Address [address] [place] [address] Care Team Providers Care Information Technology Professor Name Role Phone Nola Fay APRN Primary Care Provider [phone] Maribel Ambriz RADIO PERSONALITY Primary Care Provider [phone] Encounter Details Date Type Department Care Team (Late st Contact Info) Description 01/05/2022 Orders Only External Location 800 [place] [address] Provider, External Social History Tobacco [...] Breast Care [facility] [place] [address] Yesenia Daigle [facility] 800 [place] [address] 08/18/2025 11:00 AM EDT Office Visit [facility] [address] [facility], 2nd [place] [address] Corrina Ariza, RADIO PERSONALITY 800 [facility] [address] [place] [address] 09/05/2025 8:20 AM EDT [facility] Visit [facility] [address] [place] [address] Sujata Cullen, RADIO PERSONALITY [address] [address] documented as of this encounter [...] on filedocumented in this encounter Care Teams Information Technology Professor Relationship Specialty Start Date End Date Nola Fay APRN [address] [place] [address] PCP - General 11/15/21 07/16/23 Maribel Ambriz APRN [address] [place] [address] PCP - General 07/17/23 documented as of this encounter
--- OUTSIDE RECORDS SUMMARY | 2025-03-27 11:05 | XMS_ITS | Encounter Summary ---
Author Organization Healthcare Address [address] [place] [address] Care Team Providers Care Dolly Pusher Name Role Phone Maxx Matos MD Primary Care Provider [phone] Nola Fay BILL DISTRIBUTOR Primary Care Provider [phone] Maribel Ambriz BILL DISTRIBUTOR Primary Care Provider [phone] Encounter Details Date Type Department Care Team (Late st Contact Info) Description 10/08/2013 Orders Only External Location 800 [place] [address] Provider, External Social History Tobacco Use Types [...] Breast Care [facility] [place] [address] Yesenia Daigle [facility] 800 [place] [address] 08/18/2025 11:00 AM EDT Office Visit [facility] Breast Care Center [address] [facility], 2nd [place] [address] Corrina Ariza, BILL DISTRIBUTOR 800 [facility] [address] [place] [address] 09/05/2025 8:20 AM EDT Office Visit [facility] [address] [place] [address] Sujata Cullen, BILL DISTRIBUTOR [address] [address] documented as of this encounter [...] on filedocumented in this encounter Care Teams Dolly Pusher Relationship Specialty Start Date End Date Maxx Matos MD [address] [place] [address] PCP - General 10/23/20 11/14/21 Nola Fay APRN [address] [place] [address] PCP - General 11/15/21 07/16/23 Maribel Ambriz APRN [address] [place] [address] PCP - General 07/17/23 documented as of this encounter
--- OUTSIDE RECORDS SUMMARY | 2025-03-27 11:05 | XMS_ITS | Encounter Summary ---
Author Organization Healthcare Address [address] [place] [address] Care Team Providers Care Crib Clerk Name Role Phone Maxx Matos MD Primary Care Provider [phone] Nola Fay SEATING AND MOBILITY TECHNOLOGIST Primary Care Provider [phone] Maribel Ambriz SEATING AND MOBILITY TECHNOLOGIST Primary Care Provider [phone] Encounter Details Date Type Department Care Team (Late Contact Info) Description 09/24/2013 Orders Only External Location 800 [place] [address] Maxx Matos MD [address] [place] [address] Social History Tobacco Use Types Packs/Day Years [...] [facility] [place] [address] [address]ig[address] Building 800 [place] [address] 08/18/2025 11:00 AM EDT [facility] Visit [facility] [address] [facility], 2nd [place] [address] Corrina Ariza, SEATING AND MOBILITY TECHNOLOGIST 800 [facility] Yesenia Daigle [address] [address] 09/05/2025 8:20 AM EDT Office Visit [facility] [address] [place] [address] Sujata Cullen APRN [address] [address] documented as of this encounter [...] on filedocumented in this encounter Care Teams Crib Clerk Relationship Specialty Start Date End Date Maxx Matos MD [address] [place] [address] PCP - General 10/23/20 11/14/21 Nola Fay APRN [address] [place] [address] PCP - General 11/15/21 07/16/23 Maribel Ambriz APRN [address] [place] [facility] [place] [address] PCP - General 07/17/23 documented as of this encounter
--- OUTSIDE RECORDS SUMMARY | 2025-03-27 11:05 | XMS_ITS | Clinical Summary ---
Author Organization [facility] Address [address] [place] [address] Care Team Providers Care Outpatient Physical Therapist Assistant Name Role Phone Maribel Ambriz SOCIAL WELFARE RESEARCH WORKER Primary Care Provider [phone] Allergies Active Allergy Reactions Criticality Noted Date [...] Gluc Sensor (FreeStyle Mounika 14 Day Sensor) muscogee 08/09/19 24 Active Repatha SureClick 140 MG/ML solution auto-injector INJECT 1 AUTO INJECTOR SUBCUTANEOUSLY EVERY TWO WEEKS 08/03/19 24 Active calcitriol (Rocaltrol) 0.25 MCG capsule 02/15/20 24 Active gabapentin (Neurontin) 100 MG capsule 02/13/20 24 Active nystatin (Mycostatin) 361496 UNIT/ML suspension 02/13/20 24 Active levocetirizine (Xyzal) 5 MG tablet Take 1 tablet (5 mg) by mouth. 02/14/20 24 Active pregabalin (Lyrica) 25 MG capsule Take 1 capsule by mouth 2 times a day. Active cholecalciferol (Vitamin D-3) 250 MCG (88500 UT) capsule Take 1 capsule by mouth [...] Brother Kris CAD (cor onary artery disease), [place] coronary artery Diabetes Brother Kris Heart disease [...] Sister 3 Megan Relation Name Status Comments Brothdiomedes Ponce Father Tanner Mother Sister 1 Alexandra Sister [...] [facility] Rohit Daigle Building [address] [place] [address] 08/18/2025 11:00 AM EDT Office Visit [facility] [address], 2nd [place] [address] Corrina Ariza, SOCIAL WELFARE RESEARCH WORKER [address] [place] [address] 09/05/2025 8:20 AM EDT Office Visit [facility] [address] [place] [address] Sujata Cullen, SOCIAL WELFARE RESEARCH WORKER [address] [facility] [address] [place] [address] Health Maintenance Due Date Last [...] series) 2010 UKY-Diabetes: Hemoglobin A1C 12/12/2019 06/14/2019 [id number] Vaccine ( season) 2025 07/21/2021, 09/10/2020, 08/13/2020 [...] topic Medical Devices Implanted Type Area Clinical Informatics Director Device Identifier Shelf Expiration Date Model / Serial / Lot PaymentOne Eviva Std - [id number] Implanted:Qty: 1 on 08/10/2023 by Lien Arana MD at [facility] Left: [id number] [place], [place] [id number] -SVISION / / Procedures Procedure Name Priority [...] 2013 (with SLN bx); hysterectomy (Hysterectomy from Gini); left breast surgery, 2013 (with SLN bx); and left breast lumpectomy, 2013 (with SLN bx). Medical history includes breast cancer, 2013 (left breast); radiation therapy, 2013 (left breast); and chemotherapy, 2013. COMPARISON STUDIES: Compared to: 12/01/2020 Mammography Outside Images Upload 12/21/2021 Mammography Outside Images Upload 01/05/2022 Mammography Outside Images Upload 07/17/2023 Mammography Breast Diagnostic Tomosynthesis Bilateral at [facility] 08/07/2023 Mammography Breast Post Biopsy Clip Left at [facility] 08/10/2023 Mammography Stereotactic Breast Biopsy Left at [facility] 08/10/2023 Mammography Breast Post Biopsy Clip Left at [facility] 02/16/2024 Mammography Breast Diagnostic Tomosynthesis Left at [facility] BREAST COMPOSITION: There are scattered areas of fibroglandular density. FINDINGS: There are post-lumpectomy changes present in the left breast. There is no evidence of suspicious masses, calcifications, or other abnormal findings. us Corrina Ariza SOCIAL WELFARE RESEARCH WORKER IMG BI PROCEDURES Final Re sult * [...] <6.0% Children and Adolescents <7.5% . Source: [place] [employer]. Standards of medical care in diabetes, 2017. Diabetes Care.2017:40 (suppl 1):S1-S135. . HbA1c assay performed by an ion-exchange chromatography method that is certified traceable to the DCCT. 06/14/2019 3:55 AM EST 06/14/2019 4:15 AM EST us Linda Pereyra APRN LAB BLOOD ORDERABLES Final Res ult SUNQUEST from Last 3 Months or Most Recently Relevant to [place] [address] Care Teams Outpatient Physical Therapist Assistant Relationship Specialty Start Date End Date Maribel Ambriz APRN [address] [place] [address] PCP - General 07/17/23
--- OUTSIDE RECORDS SUMMARY | 2025-03-27 11:05 | XMS_ITS | Encounter Summary ---
Author Organization Healthcare Address [address] [place] [address] Care Team Providers Care Dehydrogenation Operator Head Name Role Phone Maxx Matos MD Primary Care Provider [phone] Nola Fay MIGRATORY GAME BIRD BIOLOGIST Primary Care Provider [phone] Maribel Ambriz MIGRATORY GAME BIRD BIOLOGIST Primary Care Provider [phone] Encounter Details Date Type Department Care Team (Late Contact Info) Description 09/24/2013 Orders Only External Location [address] [place] [address] Maxx Matos MD [address] [place] [address] Social History Tobacco Use Types Packs/Day Years [...] [facility] [place] [address] [address] [place] [address] 08/18/2025 11:00 AM EDT Office Visit [facility] [address] [facility], 2nd [place] [address] Corrina Ariza, MIGRATORY GAME BIRD BIOLOGIST [address] [facility] Yesenia Daigle [address] [address] 09/05/2025 8:20 AM EDT Office Visit [facility] [address] [place] [address] Sujata Cullen APRN [address] [address] documented as of this encounter [...] on filedocumented in this encounter Care Teams Dehydrogenation Operator Head Relationship Specialty Start Date End Date Maxx Matos MD [address] [place] [address] PCP - General 10/23/20 11/14/21 Nola Fay APRN [address] [place] [address] PCP - General 11/15/21 07/16/23 Maribel Ambriz APRN [address] [place] [address] PCP - General 07/17/23 documented as of this encounter
--- OUTSIDE RECORDS SUMMARY | 2025-03-27 11:05 | XMS_ITS | Encounter Summary ---
Author Organization Healthcare Address [address] [place] [address] Care Team Providers Care Cd Storage And Materials Make Up Helper Name Role Phone Nola Fay APRN Primary Care Provider [phone] Maribel Ambriz SALES BROKER Primary Care Provider [phone] Encounter Details Date Type Department Care Team ([facility] [address] Contact Info) Description 01/21/2022 Orders Only External Location [address] [place] [address] Sarah Oliver MD [address] [place] [address] Social History Tobacco Use Types Packs/Day Years [...] [facility] [place] [address] [address] [place] [address] 08/18/2025 11:00 AM EDT Office Visit [facility] [address] [facility], 2nd [place] [address] Corrina Ariza, SALES BROKER 800 [facility] Yesenia Swainson [address] [address] 09/05/2025 8:20 AM EDT Office Visit [facility] [address] [place] [address] Sujata Cullen APRN [address] [address] documented as of this encounter [...] on filedocumented in this encounter Care Teams Cd Storage And Materials Make Up Helper Relationship Specialty Start Date End Date Nola Fay APRN [address] [place] [address] PCP - General 11/15/21 07/16/23 Maribel Ambriz APRN [address] [place] [address] PCP - General 07/17/23 documented as of this encounter
--- OUTSIDE RECORDS SUMMARY | 2025-03-27 11:05 | XMS_ITS | Encounter Summary ---
Author Organization Healthcare Address [address] [place] [address] Care Team Providers Care Chore Tender Name Role Phone Maxx Matos MD Primary Care Provider [phone] Nola Fay SPOOL WINDER Primary Care Provider [phone] Maribel Ambriz SPOOL WINDER Primary Care Provider [phone] Encounter Details Date Type Department Care Team (Late st Contact Info) Description 10/08/2013 Orders Only External Location [address] [place] [address] Provider, External Social History Tobacco Use Types [...] [facility] [place] [address] [address] [facility] [address] [place] [address] 08/18/2025 11:00 AM EDT Office Visit [facility] [address] [facility], 2nd [place] [address] Corrina Ariza, SPOOL WINDER [address] [facility] [address] [place] [address] 09/05/2025 8:20 AM EDT Office Visit [facility] [address] [place] [address] Sujata Cullen, SPOOL WINDER [address] [address] documented as of this encounter [...] on filedocumented in this encounter Care Teams Chore Tender Relationship Specialty Start Date End Date Maxx Matos MD [address] [place] [address] PCP - General 10/23/20 11/14/21 Nola Fay APRN [address] [place] [address] PCP - General 11/15/21 07/16/23 Maribel Ambriz APRN [address] [place] [address] PCP - General 07/17/23 documented as of this encounter
--- OUTSIDE RECORDS SUMMARY | 2025-03-27 11:05 | XMS_ITS | Encounter Summary ---
Author Organization Healthcare Address [address] [place] [address] Care Team Providers Care Program Schedule Clerk Name Role Phone Maxx Matos MD Primary Care Provider [phone] Nola Fay PARTY HOST Primary Care Provider [phone] Maribel Ambriz PARTY HOST Primary Care Provider [phone] Encounter Details Date Type Department Care Team (Late Contact Info) Description 11/08/2016 Orders Only External Location [address] [place] [address] Maxx Matos MD [address] [place] [address] Social History Tobacco Use Types Packs/Day Years [...] [facility] [place] [address] [address] [place] [address] 08/18/2025 11:00 AM EDT Office Visit [facility] [address] [facility], 2nd [place] [address] Corrina Ariza, PARTY HOST [address] [facility] Yes[address] Da[address]le [address] [address] 09/05/2025 8:20 AM EDT Office Visit [facility] [address] [place] [address] Sujata Cullen APRN [address] [address] documented as of this encounter [...] on filedocumented in this encounter Care Teams Program Schedule Clerk Relationship Specialty Start Date End Date Maxx Matos MD [address] [place] [address] PCP - General 10/23/20 11/14/21 Nola Fay APRN [address] [place] [address] PCP - General 11/15/21 07/16/23 Maribel Ambriz APRN [address] [place] [address] PCP - General 07/17/23 documented as of this encounter
--- OUTSIDE RECORDS SUMMARY | 2025-03-27 11:05 | XMS_ITS | Encounter Summary ---
Author Organization Healthcare Address [address] [place] [address] Care Team Providers Care Marine Engineering Professor Name Role Phone Maxx Matos MD Primary Care Provider [phone] Nola Fay SAMPLE WRAPPER Primary Care Provider [phone] Maribel Ambriz SAMPLE WRAPPER Primary Care Provider [phone] Encounter Details Date Type Department Care Team (Late Contact Info) Description 12/13/2019 Orders Only External Location [address] [place] [address] Sarah Oliver MD [address] [place] [address] Social History Tobacco Use Types Packs/Day Years [...] [facility] [place] [address] [address] [facility] [address] [place] [address] 08/18/2025 11:00 AM EDT Office Visit [facility] [address] [facility], 2nd [place] [address] Corrina Ariza, SAMPLE WRAPPER 800 [facility] Yesenia Daigle [address] [address] 09/05/2025 8:20 AM EDT Office Visit [facility] [address] [place] [address] Sujata Cullen, SAMPLE WRAPPER [address] [address] documented as of this encounter [...] on filedocumented in this encounter Care Teams Marine Engineering Professor Relationship Specialty Start Date End Date Maxx Matos MD [address] [place] [address] PCP - General 10/23/20 11/14/21 Nola Fay SAMPLE WRAPPER [address] [place] [address] PCP - General 11/15/21 07/16/23 Maribel Ambriz SAMPLE WRAPPER [address] [place] [address] PCP - General 07/17/23 documented as of this encounter
--- OUTSIDE RECORDS SUMMARY | 2025-03-27 11:05 | XMS_ITS | Encounter Summary ---
Author Organization Healthcare Address [address] [place] [address] Care Team Providers Care Home Health Travel Pt Name Role Phone Nola Fay APRN Primary Care Provider [phone] Maribel Ambriz EMBEDDED SYSTEMS DEVELOPER Primary Care Provider [phone] Encounter Details Date Type Department Care Team (Late st Contact Info) Description 12/21/2021 Orders Only External Location [address] [place] [address] Provider, External Social History Tobacco [...] [facility] [place] [address] [address] [facility] [address] [place] [address] 08/18/2025 11:00 AM EDT Office Visit [facility] [address] [facility], 2nd [place] [address] Corrina Ariza, EMBEDDED SYSTEMS DEVELOPER [address] [facility] [address] [place] [address] 09/05/2025 8:20 AM EDT Office Visit [facility] [address] [place] [address] Sujata Cullen, EMBEDDED SYSTEMS DEVELOPER [address] [address] documented as of this encounter [...] on filedocumented in this encounter Care Teams Home Health Travel Pt Relationship Specialty Start Date End Date Nola Fay, EMBEDDED SYSTEMS DEVELOPER [address] [place] [address] PCP - General 11/15/21 07/16/23 Maribel Ambriz EMBEDDED SYSTEMS DEVELOPER [address] [place] [address] PCP - General 07/17/23 documented as of this encounter
--- OUTSIDE RECORDS SUMMARY | 2025-03-27 11:05 | XMS_ITS | Encounter Summary ---
Author Organization Healthcare Address [address] [place] [address] Care Team Providers Care Pet Trainer Name Role Phone Maxx Matos MD Primary Care Provider [phone] Nola Fay [employer] OFFICER Primary Care Provider [phone] Maribel Ambriz [employer] OFFICER Primary Care Provider [phone] Encounter Details Date Type Department Care Team (Late st Contact Info) Description 09/08/2011 Orders Only External Location [address] [place] [address] Provider, External Social History Tobacco Use Types [...] [facility] [place] [address] [address] [facility] [address] [place] [address] 08/18/2025 11:00 AM EDT Office Visit [facility] [address] [facility], 2nd [place] [address] Corrina Ariza, [employer] OFFICER 800 [facility] [address] [place] [address] 09/05/2025 8:20 AM EDT Office Visit [facility] [address] [place] [address] Sujata Cullen, [employer] OFFICER [address] [address] documented as of this encounter [...] on filedocumented in this encounter Care Teams Pet Trainer Relationship Specialty Start Date End Date Maxx Matos MD [address] [place] [address] PCP - General 10/23/20 11/14/21 Nola Fay APRN [address] [place] [address] PCP - General 11/15/21 07/16/23 Maribel Ambriz APRN [address] [place] [address] PCP - General 07/17/23 documented as of this encounter
[2025-03-27 11:06] LABS: Microscopic, Urine URINE MICROSCOPIC (MICROSCOPIC)
--- OUTSIDE RECORDS SUMMARY | 2025-03-27 11:06 | XMS_ITS | Encounter Summary ---
Author Organization Healthcare Address [address] [place] [address] Care Team Providers Care Rebar Bender Name Role Phone Maxx Matos MD Primary Care Provider [phone] Nola Fay PHOTOGRAPHIC PRINTER Primary Care Provider [phone] Maribel mAbriz PHOTOGRAPHIC PRINTER Primary Care Provider [phone] Encounter Details Date Type Department Care Team (Late Contact Info) Description 10/28/2015 Orders Only External Location [address] [place] [address] Provider, External Social History Tobacco Use Types [...] Breast Care [facility] [place] [address] [address] [facility] 800 [place] [address] 08/18/2025 11:00 AM EDT Office Visit [facility] [address] [facility], 2nd [place] [address] Corrina Ariza, PHOTOGRAPHIC PRINTER [address] [facility] [address] [place] [address] 09/05/2025 8:20 AM EDT Office Visit [facility] [address] [place] [address] Sujata Cullen, PHOTOGRAPHIC PRINTER [address] [address] documented as of this encounter [...] on filedocumented in this encounter Care Teams Rebar Bender Relationship Specialty Start Date End Date Maxx Matos MD [address] [place] [address] PCP - General 10/23/20 11/14/21 Nola Fay APRN [address] [place] [address] PCP - General 11/15/21 07/16/23 Maribel Ambriz APRN [address] [place] [address] PCP - General 07/17/23 documented as of this encounter
--- OUTSIDE RECORDS SUMMARY | 2025-03-27 11:06 | XMS_ITS | Encounter Summary ---
Author Organization Healthcare Address [address] [place] [address] Care Team Providers Care Splicing Supervisor Name Role Phone Maxx Matos MD Primary Care Provider [phone] Nola Fay SPECIAL EDUCATION SCIENCE TEACHER Primary Care Provider [phone] Maribel Ambriz SPECIAL EDUCATION SCIENCE TEACHER Primary Care Provider [phone] Encounter Details Date Type Department Care Team (Late Contact Info) Description 10/28/2014 Orders Only External Location [address] [place] [address] Provider, External Social History Tobacco Use Types [...] Breast Care [facility] [place] [address] [address] [facility] [address] [place] [address] 08/18/2025 11:00 AM EDT Office Visit [facility] Breast [facility] Center [address] [facility], 2nd [place] [address] Corrina Ariza, SPECIAL EDUCATION SCIENCE TEACHER 800 [facility] [address] [place] [address] 09/05/2025 8:20 AM EDT Office Visit [facility] [address] [place] [address] Sujata Cullen, SPECIAL EDUCATION SCIENCE TEACHER [address] [address] documented as of this [...] on filedocumented in this encounter Care Teams Splicing Supervisor Relationship Specialty Start Date End Date Maxx Matos MD [address] [place] [address] PCP - General 10/23/20 11/14/21 Nola Fay APRN [address] [place] [address] PCP - General 11/15/21 07/16/23 Maribel Ambriz APRN [address] [place] [address] PCP - General 07/17/23 documented as of this encounter
--- OUTSIDE RECORDS SUMMARY | 2025-03-27 11:06 | XMS_ITS | Encounter Summary ---
Author Organization Healthcare Address [address] [place] [address] Care Team Providers Care Melt House Supervisor Name Role Phone Maxx Matos MD Primary Care Provider [phone] Nola Fay ADVENTURE GUIDE Primary Care Provider [phone] Maribel Ambriz ADVENTURE GUIDE Primary Care Provider [phone] Encounter Details Date Type Department Care Team (Late Contact Info) Description 10/13/2015 Orders Only External Location [address] [place] [address] Provider, External Social History Tobacco Use Types [...] Breast Care [facility] [place] [address] [address] [facility] [address] [place] [address] 08/18/2025 11:00 AM EDT Office Visit [facility] Breast [facility] Center [address] [facility], 2nd [place] [address] Corrina Ariza, ADVENTURE GUIDE 800 [facility] [address] [place] [address] 09/05/2025 8:20 AM EDT Office Visit [facility] [address] [place] [address] Sujata Cullen, ADVENTURE GUIDE [address] [address] documented as of this encounter [...] on filedocumented in this encounter Care Teams Melt House Supervisor Relationship Specialty Start Date End Date Maxx Matos MD [address] [place] [address] PCP - General 10/23/20 11/14/21 Nola Fay APRN [address] [place] [address] PCP - General 11/15/21 07/16/23 Maribel Ambriz APRN [address] [place] [address] PCP - General 07/17/23 documented as of this encounter
--- OUTSIDE RECORDS SUMMARY | 2025-03-27 11:06 | XMS_ITS | Encounter Summary ---
Author Organization Healthcare Address [address] [place] [address] Care Team Providers Care Dialysis Social Worker Name Role Phone Maxx Matos MD Primary Care Provider [phone] Nola Fay PROJECT MANAGEMENT ENGINEER Primary Care Provider [phone] Maribel Ambriz PROJECT MANAGEMENT ENGINEER Primary Care Provider [phone] Encounter Details Date Type Department Care Team (Late st Contact Info) Description 10/08/2013 Orders Only External Location [address] [place] [address] Provider, External Social History Tobacco Use Types [...] Center [facility] [place] [address] [address] [facility] 800 [place] [address] 08/18/2025 11:00 AM EDT Office Visit [facility] [address] [facility], 2nd [place] [address] Corrina Ariza, PROJECT MANAGEMENT ENGINEER [address] [facility] [address] [place] [address] 09/05/2025 8:20 AM EDT Office Visit [facility] [address] [place] [address] Sujata Cullen, PROJECT MANAGEMENT ENGINEER [address] [address] documented as of this encounter [...] on filedocumented in this encounter Care Teams Dialysis Social Worker Relationship Specialty Start Date End Date Maxx Matos MD [address] [place] [address] PCP - General 10/23/20 11/14/21 Nola Fay APRN [address] [place] [address] PCP - General 11/15/21 07/16/23 Maribel Ambriz APRN [address] [place] [address] PCP - General 07/17/23 documented as of this encounter
[2025-03-27 11:52] LABS: Hematocrit 38.8 % (37.0-47.0); Hemoglobin 12.7 g/dL (12.2-16.2); Immature Granulocytes % 1.4 %; Mean Corpuscular HGB Conc 32.7 g/dL (31.8-35.4); Mean Corpuscular Hemoglobin 29.6 pg (27.0-31.2); Mean Corpuscular Volume 90.4 fl (81-99); Nucleated Red Blood Cells % 0 %; Platelet Count 256 K/mm3 (142-424); Red Blood Count 4.29 M/mm3 (4.20-5.40); Red Cell Distribution Width-SD 46.7 fL; White Blood Count 7.2 K/mm3 (4.8-10.8)
[2025-03-27 12:12] LABS: Albumin Level 4.1 g/dl (3.5-5.0); Chloride 97 mmol/L (98-107); Sodium 132 mmol/L (136-145)
[2025-03-27 12:13] LABS: Potassium 4.8 mmoL/L (3.5-5.1)
[2025-03-27 12:15] LABS: Alanine Aminotransferase 22 U/L (12-78); Albumin/Globulin Ratio 1.4 (1.1-1.8); Alkaline Phosphatase 72 U/L (38-126); Anion Gap 14.8 mEq/L (5-15); Aspartate Amino Transferase 29 U/L (14-36); Bilirubin,Total 0.7 mg/dl (0.2-1.3); Blood Urea Nitrogen 27 mg/dl (7-17); Carbon Dioxide 25 mmol/L (22.0-30.0); Cholesterol 136 mg/dl (140-200); Creatinine,Serum 1.40 mg/dl (0.52-1.04); Estimated Glomerular Filt Rate 37 ml/min (>60); GFR (African American) 44 ML/MIN (>60); Globulin 2.9 g/dL (1.3-3.2); Iron 108 ug/dL (37-170); Total Protein,Serum 7.0 g/dl (6.3-8.2); Triglycerides 162 mg/dl (30-150)
[2025-03-27 12:16] LABS: Calcium 9.1 mg/dl (8.4-10.2); Glucose 91 mg/dl (74-100); HDL Cholesterol 71 mg/dl (40-60)
[2025-03-27 12:26] LABS: Total Iron Binding Capacity 370 ug/dL (265-497)
[2025-03-27 12:34] LABS: Free T4 (Free Thyroxine) 0.90 ng/dl (0.78-2.19)
[2025-03-27 12:44] LABS: Bilirubin,Urine Negative (Negative); Color,Urine YELLOW (Yellow); Glucose,Urine (UA) 3+ (Negative); Ketones,Urine Negative (Negative); Leukocyte Esterase,Urine Negative (Negative); PH,Urine 6.5 (5.0-8.5); Protein,Urine Negative (Negative); Specific Gravity, Urine <= 1.005 (1.005-1.030); Urobilinogen,Urine 0.2 EU/dl (0.2)
[2025-03-27 12:46] LABS: Hemoglobin A1C 6.8 % (4.0-6.0)
[2025-03-27 12:47] LABS: Thyroid Stimulating Hormone 2.29 uIU/mL (0.465-4.68)
[2025-03-27 12:51] LABS: Ferritin 18.2 ng/ml (11.1-264)
[2025-03-27 13:06] LABS: Bacteria,Urine 2+ /lpf; Squamous Epithelial Cell,Urine Occasional #/hpf (0-5)
== END 2025-03-27 23:59 | disposition home or self-care (01) ==
LOC: LAB 11:00
PROVIDERS: PCP Nurse Practitioner Family; Visit Provider Nurse Practitioner Family
DX: D64.9 Anemia, unspecified (principal); I10 Essential (primary) hypertension; R79.89 Other specified abnormal findings of blood chemistry; E21.3 Hyperparathyroidism, unspecified; E04.1 Nontoxic single thyroid nodule; G47.33 Obstructive sleep apnea (adult) (pediatric); R41.3 Other amnesia; I12.9 Hypertensive chronic kidney disease with stage 1 through stage 4 chronic kidney disease, or unspecified chronic kidney disease; N18.30 Chronic kidney disease, stage 3 unspecified; R33.9 Retention of urine, unspecified; E11.9 Type 2 diabetes mellitus without complications; E78.5 Hyperlipidemia, unspecified
CPT/HCPCS: 36415; 80053; 80061; 81001; 82728; 83036; 83540; 83550; 84439; 84443; 85025; 87086

== ENCOUNTER 2025-04-02 10:59 | Outpatient (CLI) | payer MEDICARE, SELFPAY ==
--- NOTE | 2025-04-02 11:03 | XR_ITS ---
FINAL REPORT CLINICAL HISTORY: right wrist pain / numbness x 6 months COMPARISON: None FINDINGS: RIGHT WRIST THREE VIEW FINDINGS: Three views show no evidence of an acute, displaced fracture or dislocation of the visualized bony architecture. There is moderate degenerative change involving the first carpometacarpal joint. 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 Reviewed, Interpreted and Dictated by Scott Wong MD Transcribed by Mayda Park Authenticated and [facility]
--- NOTE | 2025-04-02 11:03 | XR_ITS ---
FINAL REPORT CLINICAL HISTORY: left wrist pain / numbness x 6 months COMPARISON: None FINDINGS: LEFT WRIST THREE VIEW FINDINGS: Three views show no evidence of an acute, displaced fracture or dislocation of the visualized bony architecture. Mild degenerative change of the first carpometacarpal joint is present. IMPRESSION: Mild degenerative change of the first CMC joint, without acute bony abnormality. Reviewed, Interpreted and Dictated by Scott Wong MD Transcribed by Mayda Park Authenticated and . [facility]
--- OUTSIDE RECORDS SUMMARY | 2025-04-02 11:33 | XMS_ITS | Encounter Summary ---
Author Organization Healthcare Address [address] [place] [address] Care Team Providers Care Route Manager Name Role Phone Maxx Matos MD Primary Care Provider [phone] Nola Fay RAYON CONER Primary Care Provider [phone] Maribel Ambriz RAYON CONER Primary Care Provider [phone] Encounter Details Date Type Department Care Team (Late Contact Info) Description 12/13/2019 Orders Only External Location 800 [place] [address] Sarah Oliver MD [address] [place] [address] Social History Tobacco Use Types Packs/Day Years [...] [facility] [place] [address] Yesenia Daigle [facility] 800 [place] [address] 08/18/2025 11:00 AM EDT Office Visit [facility] [address] [facility], 2nd [place] [address] Corrina Ariza, RAYON CONER 800 [facility] Yesenia Daigle [address] [address] 09/05/2025 8:20 AM EDT Office Visit [facility] [address] [place] [address] Sujata Cullen, RAYON CONER [address] [address] documented as of this encounter [...] on filedocumented in this encounter Care Teams Route Manager Relationship Specialty Start Date End Date Maxx Matos MD [address] [place] [address] PCP - General 10/23/20 11/14/21 Nola Fay RAYON CONER [address] [place] [address] PCP - General 11/15/21 07/16/23 Maribel Ambriz RAYON CONER [address] [facility] [place] [address] PCP - General 07/17/23 documented as of this encounter
--- OUTSIDE RECORDS SUMMARY | 2025-04-02 11:33 | XMS_ITS | Encounter Summary ---
Author Organization Healthcare Address [address] [place] [address] Care Team Providers Care Cover Machine Operator Name Role Phone Nola Fay APRN Primary Care Provider [phone] Maribel Ambriz CLASSROOM ASSISTANT Primary Care Provider Encounter Details Date Type Department Care Team (Late st Contact Info) Description 01/05/2022 Orders Only External Location 800 [place] [address] Provider, External Social History Tobacco [...] [facility] [place] [address] Yesenia Daigle [facility] 800 [place] [address] 08/18/2025 11:00 AM EDT Office Visit [facility] 7[address] [facility], 2nd [place] [address] Corrina Ariza, CLASSROOM ASSISTANT 800 [facility] [address] [place] [address] 09/05/2025 8:20 AM EDT Office Visit [facility] [address] [place] [address] Sujata Cullen, CLASSROOM ASSISTANT [address] [address] documented as of this encounter [...] on filedocumented in this encounter Care Teams Cover Machine Operator Relationship Specialty Start Date End Date Nola Fay APRN [address] [place] [address] PCP - General 11/15/21 07/16/23 Maribel Ambriz APRN [address] [place] [address] PCP - General 07/17/23 documented as of this encounter
--- OUTSIDE RECORDS SUMMARY | 2025-04-02 11:33 | XMS_ITS | Encounter Summary ---
Author Organization Healthcare Address [address] [place] [address] Care Team Providers Care Yeast Tender Name Role Phone Maxx Matos MD Primary Care Provider [phone] Nola Fay GAS REFRIGERATOR SERVICER Primary Care Provider [phone] Maribel Ambriz GAS REFRIGERATOR SERVICER Primary Care Provider [phone] Encounter Details Date Type Department Care Team (Late Contact Info) Description 09/09/2013 Orders Only External Location 800 [place] [address] Maxx Matos MD [address] [place] [address] Social History Tobacco Use Types Packs/Day Years [...] [facility] [place] [address] Yes[place] [address] Building 800 [place] [address] 08/18/2025 11:00 AM EDT Office Visit [facility] [address] [facility], 2nd [place] [address] Corrina Ariza, GAS REFRIGERATOR SERVICER 800 [facility] Yesenia Daigle [address] [address] 09/05/2025 8:20 AM EDT Office Visit [facility] [address] [place] [address] Sujata Cullen APRN [address] [address] documented as of this encounter [...] on filedocumented in this encounter Care Teams Yeast Tender Relationship Specialty Start Date End Date Maxx Matos MD 210 [place] [address] PCP - General 10/23/20 11/14/21 Nola Fay APRN [address] [place] [address] PCP - General 11/15/21 07/16/23 Maribel Ambriz APRN [address] [place] [address] PCP - General 07/17/23 documented as of this encounter
--- OUTSIDE RECORDS SUMMARY | 2025-04-02 11:33 | XMS_ITS | Encounter Summary ---
Author Organization Healthcare Address [address] [place] [address] Care Team Providers Care Core Dropper Name Role Phone Maxx Matos MD Primary Care Provider [phone] Nola Fay MANAGER ADVANCED Primary Care Provider [phone] Maribel Ambriz MANAGER ADVANCED Primary Care Provider [phone] Encounter Details Date Type Department Care Team (Late Contact Info) Description 09/03/2012 Orders Only External Location 800 [place] [address] Maxx Matos MD [address] [place] [address] Social History Tobacco Use Types Packs/Day Years [...] [facility] [place] [address] Yes[place] Daigle Building 800 [place] [address] 08/18/2025 11:00 AM EDT Office Visit [facility] [address] [facility], 2nd [place] [address] Corrina Ariza, MANAGER ADVANCED 800 [facility] Yesenia Daigle [address] [address] 09/05/2025 8:20 AM EDT Office Visit [facility] [address] [place] [address] Sujata Cullen APRN [address] [address] documented as of this encounter [...] on filedocumented in this encounter Care Teams Core Dropper Relationship Specialty Start Date End Date Maxx Matos MD 210 [place] [address] PCP - General 10/23/20 11/14/21 Nola Fay APRN [address] [place] [address] PCP - General 11/15/21 07/16/23 Maribel Ambriz APRN [address] [place] [address] PCP - General 07/17/23 documented as of this encounter
--- OUTSIDE RECORDS SUMMARY | 2025-04-02 11:33 | XMS_ITS | Encounter Summary ---
Author Organization Healthcare Address [address] [place] [address] Care Team Providers Care Service Desk Specialist Name Role Phone Maxx Matos MD Primary Care Provider [phone] Nola Fay BUSINESS TECHNOLOGY ARCHITECT Primary Care Provider [phone] Maribel Ambriz BUSINESS TECHNOLOGY ARCHITECT Primary Care Provider [phone] Encounter Details Date Type Department Care Team (Late st Contact Info) Description 10/08/2013 Orders Only External Location 800 [place] [address] Provider, External Social History Tobacco Use Types [...] [facility] [place] [address] Yesenia Daigle [facility] 800 [place] [address] 08/18/2025 11:00 AM EDT Office Visit [facility] 740 [facility], 2nd [place] [address] Corrina Ariza, BUSINESS TECHNOLOGY ARCHITECT 800 [facility] Yesenia Daigle [facility] Ajit [address] [place] [address] 09/05/2025 8:20 AM EDT Office Visit [facility] [address] [place] [address] Sujata Cullen, BUSINESS TECHNOLOGY ARCHITECT [address] [address] documented as of this encounter [...] on filedocumented in this encounter Care Teams Service Desk Specialist Relationship Specialty Start Date End Date Maxx Matos MD [address] [place] [address] PCP - General 10/23/20 11/14/21 Nola Fay APRN [address] [place] [address] PCP - General 11/15/21 07/16/23 Maribel Ambriz APRN [address] [place] [address] PCP - General 07/17/23 documented as of this encounter
--- OUTSIDE RECORDS SUMMARY | 2025-04-02 11:33 | XMS_ITS | Encounter Summary ---
Author Organization Healthcare Address [address] [place] [address] Care Team Providers Care General Supervisor Name Role Phone Maxx Matos MD Primary Care Provider [phone] Nola Fay JUVENILE PROBATION OFFICER Primary Care Provider [phone] Maribel Ambriz JUVENILE PROBATION OFFICER Primary Care Provider [phone] Encounter Details Date Type Department Care Team (Late st Contact Info) Description 09/08/2011 Orders Only External Location 800 [place] [address] Provider, External Social History Tobacco Use Types [...] [facility] [place] [address] Yesenia Daigle [facility] 800 [place] [address] 08/18/2025 11:00 AM EDT Office Visit [facility] 7[address] [facility], 2nd [place] [address] Corrina Ariza, JUVENILE PROBATION OFFICER [address] [facility] Yesenia Daigle [facility] Aj[address] [place] [address] 09/05/2025 8:20 AM EDT Office Visit [facility] [address] [place] [address] Sujata Cullen, JUVENILE PROBATION OFFICER [address] [address] documented as of this encounter [...] on filedocumented in this encounter Care Teams General Supervisor Relationship Specialty Start Date End Date Maxx Matos MD [address] [place] [address] PCP - General 10/23/20 11/14/21 Nola Fay APRN [address] [place] [address] PCP - General 11/15/21 07/16/23 Maribel Ambriz APRN [address] [place] [address] PCP - General 07/17/23 documented as of this encounter
--- OUTSIDE RECORDS SUMMARY | 2025-04-02 11:33 | XMS_ITS | Encounter Summary ---
Author Organization Healthcare Address [address] [place] [address] Care Team Providers Care Cat Dog Or Other Pet Groomer Name Role Phone Nola Fay APRN Primary Care Provider [phone] Maribel Ambriz CHIP WASHER Primary Care Provider [phone] Encounter Details Date Type Department Care Team ([facility] Contact Info) Description 01/21/2022 Orders Only External Location 800 [place] [address] Sarah Oliver MD [address] [place] [address] Social History Tobacco Use Types Packs/Day Years [...] [facility] [place] [address] Yesenia Daigle Building 800 [place] [address] 08/18/2025 11:00 AM EDT Office Visit [facility] [address] [facility], 2nd [place] [address] Corrina Ariza, CHIP WASHER 800 [facility] Yesenia Swainson [address] [phone] 09/05/2025 8:20 AM EDT Office Visit [facility] [address] [place] [address] Sujata Cullen APRN [address] [address] documented as of this [...] filedocumented in this encounter Care Teams Cat Dog Or Other Pet Groomer Relationship Specialty Start Date End Date Nola Fay APRN [address] [place] [address] PCP - General 11/15/21 07/16/23 Maribel Ambriz APRN [address] [place] [address] PCP - General 07/17/23 documented as of this encounter
--- OUTSIDE RECORDS SUMMARY | 2025-04-02 11:33 | XMS_ITS | Encounter Summary ---
Author Organization Healthcare Address [address] [place] [address] Care Team Providers Care Web Content & Social Media Manager Name Role Phone Maxx Matos MD Primary Care Provider [phone] Nola Fay DESKIDDING MACHINE OPERATOR Primary Care Provider [phone] Maribel Ambriz DESKIDDING MACHINE OPERATOR Primary Care Provider [phone] Encounter Details Date Type Department Care Team (Late Contact Info) Description 12/13/2019 Orders Only External Location 800 [place] [address] Sarah Oliver MD [address] [place] [address] Social History Tobacco Use Types Packs/Day Years [...] [facility] [place] [address] Yesenia Daigle [facility] 800 [place] [address] 08/18/2025 11:00 AM EDT Office Visit [facility] [address] [facility], 2nd [place] [address] Corrina Ariza, DESKIDDING MACHINE OPERATOR 800 [facility] Yesenia Daigle [address] [address] 09/05/2025 8:20 AM EDT Office Visit [facility] [address] [place] [address] Sujata Cullen, OLLIE [address] [address] documented as of this encounter [...] on filedocumented in this encounter Care Teams Web Content & Social Media Manager Relationship Specialty Start Date End Date Maxx Matos MD [address] [place] [address] PCP - General 10/23/20 11/14/21 Nola Fay APRN [address] [place] [address] PCP - General 11/15/21 07/16/23 Maribel Ambriz APRN [address] [facility] [place] [address] PCP - General 07/17/23 documented as of this encounter
--- OUTSIDE RECORDS SUMMARY | 2025-04-02 11:33 | XMS_ITS | Encounter Summary ---
Author Organization Healthcare Address [address] [place] [address] Care Team Providers Care Director Of Special Events Name Role Phone Maxx Matos MD Primary Care Provider [phone] Nola Fay BURRING WHEEL OPERATOR Primary Care Provider [phone] Maribel Ambriz BURRING WHEEL OPERATOR Primary Care Provider [phone] Encounter Details Date Type Department Care Team (Late Contact Info) Description 09/24/2013 Orders Only External Location 800 [place] [address] Maxx Matos MD [address] [place] [address] Social History Tobacco Use Types Packs/Day Years [...] Center [facility] [place] [address] Yesenia Daigle Building 800 [place] [address] 08/18/2025 11:00 AM EDT Office Visit [facility] 7[address] [facility], 2nd [place] [address] Corrina Ariza, BURRING WHEEL OPERATOR 800 [facility] Yesenia Daigle [address] [address] 09/05/2025 8:20 AM EDT Office Visit [facility] [address] [place] [address] Sujata Cullen APRN [address] [address] documented as of this encounter [...] filedocumented in this encounter Care Teams Director Of Special Events Relationship Specialty Start Date End Date Maxx Matos MD [address] [place] [address] PCP - General 10/23/20 11/14/21 Nola Fay APRN [address] [place] [address] PCP - General 11/15/21 07/16/23 Maribel Ambriz APRN [address] [place] [address] PCP - General 07/17/23 documented as of this encounter
--- OUTSIDE RECORDS SUMMARY | 2025-04-02 11:33 | XMS_ITS | Encounter Summary ---
Author Organization Healthcare Address [address] [place] [address] Care Team Providers Care Director Digital Marketing Name Role Phone Nola Fay APRN Primary Care Provider [phone] Maribel Ambriz SALES ESTIMATOR Primary Care Provider [phone] Encounter Details Date Type Department Care Team (Late st Contact Info) Description 12/21/2021 Orders Only External Location 800 [place] [address] Provider, External Social History Tobacco [...] [facility] [place] [address] Yesenia Daigle [facility] 800 [place] [address] 08/18/2025 11:00 AM EDT Office Visit [facility] Breast Care Center 740 [facility], 2nd [place] [address] Corrina Ariza, SALES ESTIMATOR 800 [facility]enia [facility] Ajit [address] [place] [address] 09/05/2025 8:20 AM EDT Office Visit [facility] [address] [place] [address] Sujata Cullen, SALES ESTIMATOR [address] [address] documented as of this encounter [...] filedocumented in this encounter Care Teams Director Digital Marketing Relationship Specialty Start Date End Date Nola Fay, SALES ESTIMATOR [address] [place] [address] PCP - General 11/15/21 07/16/23 Maribel Ambriz SALES ESTIMATOR [address] [place] [address] PCP - General 07/17/23 documented as of this encounter
--- OUTSIDE RECORDS SUMMARY | 2025-04-02 11:33 | XMS_ITS | Encounter Summary ---
Author Organization Healthcare Address [address] [place] [address] Care Team Providers Care Supervisor Fiberglass Boat Assembly Name Role Phone Maxx Matos MD Primary Care Provider [phone] Nola Fay ART EDUCATION PROFESSOR Primary Care Provider [phone] Maribel Ambriz ART EDUCATION PROFESSOR Primary Care Provider [phone] Encounter Details Date Type Department Care Team (Late Contact Info) Description 06/18/2020 Orders Only External Location 800 [place] [address] Sarah Oliver MD [address] [place] [address] Social History Tobacco Use Types Packs/Day Years [...] [facility] [place] [address] Yesenia Daigle [facility] 800 [place] [address] 08/18/2025 11:00 AM EDT [facility] [address] [facility], 2nd [place] [address] Corrina Ariza, ART EDUCATION PROFESSOR 800 [facility] Yesenia Daigle [address] [address] 09/05/2025 8:20 AM EDT Office Visit [facility] [address] [place] [address] Sujata Cullen, OLLIE [address] [address] documented as of this encounter [...] filedocumented in this encounter Care Teams Supervisor [employer]lass Boat Assembly Relationship Specialty Start Date End Date Maxx Matos MD [address] [place] [address] PCP - General 10/23/20 11/14/21 Nola Fay APRN [address] [place] [address] PCP - General 11/15/21 07/16/23 Maribel Ambriz APRN [address] [place] [address] PCP - General 07/17/23 documented as of this encounter
--- OUTSIDE RECORDS SUMMARY | 2025-04-02 11:33 | XMS_ITS | Encounter Summary ---
Author Organization Healthcare Address [address] [place] [address] Care Team Providers Care Supervisor Title Name Role Phone Maxx Matos MD Primary Care Provider [phone] Nola Fay CAR WASHER Primary Care Provider [phone] Maribel Ambriz CAR WASHER Primary Care Provider [phone] Encounter Details Date Type Department Care Team (Late Contact Info) Description 09/24/2013 Orders Only External Location 800 [place] [address] Maxx Matos MD [address] [place] [address] Social History Tobacco Use Types Packs/Day Years [...] [facility] [place] [address] Yesenia Daigle Building 800 [place] [address] 08/18/2025 11:00 AM EDT [facility] 7[address] [facility], 2nd [place] [address] Corrina Ariza, CAR WASHER 800 [facility] Yesenia Daigle [address] [address] 09/05/2025 8:20 AM EDT Office Visit [facility] [address] [place] [address] Sujata Cullen APRN [address] [address] documented as of this encounter [...] filedocumented in this encounter Care Teams Supervisor Title Relationship Specialty Start Date End Date Maxx Matos MD [address] [place] [address] PCP - General 10/23/20 11/14/21 Nola Fay APRN [address] [place] [address] PCP - General 11/15/21 07/16/23 Maribel Ambriz APRN [address] [place] [address] [facility] [place] [address] PCP - General 07/17/23 documented as of this encounter
--- OUTSIDE RECORDS SUMMARY | 2025-04-02 11:33 | XMS_ITS | Encounter Summary ---
Author Organization Healthcare Address [address] [place] [address] Care Team Providers Care Pool Attendant Name Role Phone Maxx Matos MD Primary Care Provider [phone] Nola Fay HOUSEKEEPER/CUSTODIAN/LAUNDRY WORKER Primary Care Provider [phone] Maribel Ambriz HOUSEKEEPER/CUSTODIAN/LAUNDRY WORKER Primary Care Provider [phone] Encounter Details Date Type Department Care Team (Late Contact Info) Description 12/01/2020 Orders Only External Location 800 [place] [address] Sarah Oliver MD [address] [place] [address] Social History Tobacco Use Types Packs/Day Years [...] [facility] [place] [address] Yesenia Swainson [facility] 800 [place] [address] 08/18/2025 11:00 AM EDT Office Visit [facility] 740 [facility], 2nd [place] [address] Corrina Ariza, HOUSEKEEPER/CUSTODIAN/LAUNDRY WORKER [address] Yesenia Daigle [facility] [address] [place] [address] 09/05/2025 8:20 AM EDT Office Visit [facility] [address] [place] [address] Sujata Cullen, HOUSEKEEPER/CUSTODIAN/LAUNDRY WORKER [address] [facility] [address] [place] [address] documented as of this encounter [...] filedocumented in this encounter Care Teams Pool Attendant Relationship Specialty Start Date End Date Maxx Matos MD 210 [place] [address] PCP - General 10/23/20 11/14/21 Nola Fay APRN [address] [place] [address] PCP - General 11/15/21 07/16/23 Maribel Ambriz APRN [address] [place] [address] PCP - General 07/17/23 documented as of this encounter
--- OUTSIDE RECORDS SUMMARY | 2025-04-02 11:33 | XMS_ITS | Clinical Summary ---
Author Organization [facility] Address [address] [place] [address] Care Team Providers Care Park Worker Name Role Phone Maribel Ambriz CERTIFIED MASTER SAFE TECHNICIAN Primary Care Provider [phone] Allergies Active Allergy Reactions Criticality Noted Date [...] Gluc Sensor (FreeStyle Mounika 14 Day Sensor) [facility] 08/09/19 24 Active Repatha SureClick 140 MG/ML solution auto-injector INJECT 1 AUTO INJECTOR SUBCUTANEOUSLY EVERY TWO WEEKS 08/03/19 24 Active calcitriol (Rocaltrol) 0.25 MCG capsule 02/15/20 24 Active gabapentin (Neurontin) 100 MG capsule 02/13/20 24 Active nystatin (Mycostatin) 837589 UNIT/ML suspension 02/13/20 24 Active levocetirizine (Xyzal) 5 MG tablet Take 1 tablet (5 mg) by mouth. 02/14/20 24 Active pregabalin (Lyrica) 25 MG capsule Take 1 capsule by mouth 2 times a day. Active cholecalciferol (Vitamin D-3) 250 MCG (49392 UT) capsule Take 1 capsule by mouth [...] Brother Kris CAD (cor onary artery disease), [place] coronary artery Diabetes Brother Kris Heart disease [...] [facility] Rohit Daigle Building [address] [place] [address] 08/18/2025 11:00 AM EDT Office Visit [facility] [address], 2nd [place] [address] Corrina Ariza, CERTIFIED MASTER SAFE TECHNICIAN [address] [place] [address] 09/05/2025 8:20 AM EDT Office Visit [facility] [address] [place] [address] Sujata Cullen, CERTIFIED MASTER SAFE TECHNICIAN [address] [facility] [address] [place] [address] Health Maintenance Due Date Last [...] series) 2010 UKY-Diabetes: Hemoglobin A1C 12/12/2019 06/14/2019 [id number] Vaccine ( season) 2025 07/21/2021, 09/10/2020, 08/13/2020 [...] this topic Medical Devices Implanted Type Area Video Clerk Device Identifier Shelf Expiration Date Model / Serial / Lot Trustifi Eviva Std - [id number] Implanted:Qty: 1 on 08/10/2023 by Lien Arana MD at [facility] Left: [facility] [place], [place] [id number] -SVISION / / Procedures Procedure Name Priority [...] 2013 (with SLN bx); hysterectomy (Hysterectomy from [employer]); left breast surgery, 2013 (with SLN bx); and left breast lumpectomy, 2013 (with SLN bx). Medical history includes breast cancer, 2013 (left breast); radiation therapy, 2013 (left breast); and chemotherapy, 2013. COMPARISON STUDIES: Compared to: 12/01/2020 Mammography Outside Images Upload 12/21/2021 Mammography Outside Images Upload 01/05/2022 Mammography Outside Images Upload 07/17/2023 Mammography Breast Diagnostic Tomosynthesis Bilateral at [facility] 08/07/2023 Mammography Breast Post Biopsy Clip Left at [facility] 08/10/2023 Mammography Stereotactic Breast Biopsy Left at [facility] 08/10/2023 Mammography Breast Post Biopsy Clip Left at [facility] 02/16/2024 Mammography Breast Diagnostic Tomosynthesis Left at [facility] BREAST COMPOSITION: There are scattered areas of fibroglandular density. FINDINGS: There are post-lumpectomy changes present in the left breast. There is no evidence of suspicious masses, calcifications, or other abnormal findings. us Corrina Ariza CERTIFIED MASTER SAFE TECHNICIAN IMG BI PROCEDURES Final Re sult * [...] <6.0% Children and Adolescents <7.5% . Source: [place] [employer]. Standards of medical care in diabetes, 2017. Diabetes Care.2017:40 (suppl 1):S1-S135. . HbA1c assay performed by an ion-exchange chromatography method that is certified traceable to the DCCT. 06/14/2019 3:55 AM EST 06/14/2019 4:15 AM EST us Linda Pereyra APRN LAB BLOOD ORDERABLES Final Res ult SUNQUEST from Last 3 Months or Most Recently Relevant to Health Maintenance Insurance Care Teams Park Worker Relationship Specialty Start Date End Date Maribel Ambriz APRN [address] [place] [address] PCP - General 07/17/23
--- OUTSIDE RECORDS SUMMARY | 2025-04-02 11:33 | XMS_ITS | Encounter Summary ---
Author Organization Healthcare Address [address] [place] [address] Care Team Providers Care Auger Press Operator Name Role Phone Nola Fay APRN Primary Care Provider [phone] Maribel Ambriz MALT ROASTER Primary Care Provider [phone] Encounter Details Date Type Department Care Team (Late st Contact Info) Description 01/05/2022 Orders Only External Location 800 [place] [address] Provider, External Social History Tobacco [...] [facility] [place] [address] [address] [facility] 800 [place] [address] 08/18/2025 11:00 AM EDT Office Visit [facility] [address] [facility], 2nd [place] [address] Corrina Ariza, MALT ROASTER [address] [facility] [address] [place] [address] 09/05/2025 8:20 AM EDT Office Visit [facility] [address] [place] [address] Sujata Cullen, MALT ROASTER [address] [address] documented as of this encounter [...] on filedocumented in this encounter Care Teams Auger Press Operator Relationship Specialty Start Date End Date Nola Fay, MALT ROASTER [address] [place] [address] PCP - General 11/15/21 07/16/23 Maribel Ambriz MALT ROASTER [address] [place] [address] PCP - General 07/17/23 documented as of this encounter
--- OUTSIDE RECORDS SUMMARY | 2025-04-02 11:34 | XMS_ITS | Encounter Summary ---
Author Organization Healthcare Address [address] [place] [address] Care Team Providers Care Waste/Materials Exchange Specialist Name Role Phone Maxx Matos MD Primary Care Provider [phone] Nola Fay ARTISTIC DIRECTOR Primary Care Provider [phone] Maribel Ambriz ARTISTIC DIRECTOR Primary Care Provider [phone] Encounter Details Date Type Department Care Team (Late Contact Info) Description 11/15/2018 Orders Only External Location [address] [place] [address] Provider, External Social History Tobacco Use Types [...] [facility] [place] [address] [address] [facility] 800 [place] [address] 08/18/2025 11:00 AM EDT Office Visit [facility] [address] [facility], 2nd [place] [address] Corrina Ariza, ARTISTIC DIRECTOR [address] [facility] Yes[address] Daigle [facility] [address] [place] [address] 09/05/2025 8:20 AM EDT Office Visit [facility] [address] [place] [address] Sujata Cullen, ARTISTIC DIRECTOR [address] [address] documented as of this [...] on filedocumented in this encounter Care Teams Waste/Materials Exchange Specialist Relationship Specialty Start Date End Date Maxx Matos MD [address] [place] [address] PCP - General 10/23/20 11/14/21 Nola Fay APRN [address] [place] [address] PCP - General 11/15/21 07/16/23 Maribel Ambriz APRN [address] [place] [address] PCP - General 07/17/23 documented as of this encounter
--- OUTSIDE RECORDS SUMMARY | 2025-04-02 11:34 | XMS_ITS | Encounter Summary ---
Author Organization Healthcare Address [address] [place] [address] Care Team Providers Care Health Physicist Name Role Phone Maxx Matos MD Primary Care Provider Nola Fay BIOPHARMACEUTICAL REP Primary Care Provider [phone] Maribel Ambriz BIOPHARMACEUTICAL REP Primary Care Provider [phone] Encounter Details Date Type Department Care Team (Late st Contact Info) Description 10/08/2013 Orders Only External Location 800 [place] [address] Provider, External Social History Tobacco Use Types [...] [facility] [place] [address] Yesenia Daigle [facility] 800 [place] [address] 08/18/2025 11:00 AM EDT Office Visit [facility] [address] [facility], 2nd [place] [address] Corrina Ariza, BIOPHARMACEUTICAL REP [address] [facility] Yesenia Daigle [facility] [address] [place] [address] 09/05/2025 8:20 AM EDT Office Visit [facility] [address] [place] [address] Sujata Cullen, BIOPHARMACEUTICAL REP [address] [address] documented as of this [...] on filedocumented in this encounter Care Teams Health Physicist Relationship Specialty Start Date End Date Maxx Matos MD [address] [place] [address] PCP - General 10/23/20 11/14/21 [address] Fay APRN [address] [place] [address] PCP - General 11/15/21 07/16/23 Maribel Ambriz APRN [address] [place] [address] PCP - General 07/17/23 documented as of this encounter
--- OUTSIDE RECORDS SUMMARY | 2025-04-02 11:34 | XMS_ITS | Encounter Summary ---
Author Organization Healthcare Address [address] [place] [address] Care Team Providers Care Paper Bag Machine Operator Name Role Phone Maxx Matos MD Primary Care Provider [phone] Nola Fay CROTCH PIECE BASTER Primary Care Provider [phone] Maribel Ambriz CROTCH PIECE BASTER Primary Care Provider Encounter Details Date Type Department Care Team (Late st Contact Info) Description 11/13/2017 Orders Only External Location [address] [place] [address] Provider, External Social History Tobacco Use Types [...] [facility] [place] [address] [address] [facility] 800 [place] [address] 08/18/2025 11:00 AM EDT Office Visit [facility] [address] [facility], 2nd [place] [address] Corrina Ariza, CROTCH PIECE BASTER [address] [facility] Yesenia Daigle [facility] [address] [place] [address] 09/05/2025 8:20 AM EDT Office Visit [facility] [address] [place] [address] Sujata Cullen, CROTCH PIECE BASTER [address] [address] documented as of this encounter [...] on filedocumented in this encounter Care Teams Paper Bag Machine Operator Relationship Specialty Start Date End Date Maxx Matos MD [address] [place] [address] PCP - General 10/23/20 11/14/21 [address] Fay APRN [address] [place] [address] PCP - General 11/15/21 07/16/23 Maribel Ambriz APRN [address] [place] [address] PCP - General 07/17/23 documented as of this encounter
--- OUTSIDE RECORDS SUMMARY | 2025-04-02 11:34 | XMS_ITS | Encounter Summary ---
Author Organization Healthcare Address [address] [place] [address] Care Team Providers Care Stock Patcher Name Role Phone Maxx Matos MD Primary Care Provider [phone] Nola Fay CONCRETE LAYER Primary Care Provider [phone] Maribel Ambriz CONCRETE LAYER Primary Care Provider [phone] Encounter Details Date Type Department Care Team (Late st Contact Info) Description 10/08/2013 Orders Only External Location [address] [place] [address] Provider, External Social History Tobacco Use Types [...] [facility] [place] [address] Yes[address] Daigle [facility] 800 [place] [address] 08/18/2025 11:00 AM EDT Office Visit [facility] [address] [facility], 2nd [place] [address] Corrina Ariza, CONCRETE LAYER [address] [facility] Yesenia Daigle [facility] [address] [place] [address] 09/05/2025 8:20 AM EDT Office Visit [facility] [address] [place] [address] Sujata Cullen, CONCRETE LAYER [address] [address] documented as of this encounter [...] on filedocumented in this encounter Care Teams Stock Patcher Relationship Specialty Start Date End Date Maxx Matos MD [address] [place] [address] PCP - General 10/23/20 11/14/21 Nola Fay APRN [address] [place] [address] PCP - General 11/15/21 07/16/23 Maribel Ambriz APRN [address] [place] [address] PCP - General 07/17/23 documented as of this encounter
--- OUTSIDE RECORDS SUMMARY | 2025-04-02 11:34 | XMS_ITS | Encounter Summary ---
Author Organization Healthcare Address [address] [place] [address] Care Team Providers Care Benefits Officer Name Role Phone Maxx Matos MD Primary Care Provider Nola Fay ENDOSCOPE TECHNICIAN Primary Care Provider [phone] Maribel Ambriz ENDOSCOPE TECHNICIAN Primary Care Provider [phone] Encounter Details Date Type Department Care Team (Late Contact Info) Description 10/28/2015 Orders Only External Location [address] [place] [address] Provider, External Social History Tobacco Use Types [...] [facility] [place] [address] Yesenia Daigle [facility] 800 [place] [address] 08/18/2025 11:00 AM EDT Office Visit [facility] [address] [facility], 2nd [place] [address] Corrina Ariza, ENDOSCOPE TECHNICIAN [address] [facility] [address] [place] [address] 09/05/2025 8:20 AM EDT Office Visit [facility] [address] [place] [address] Sujata Cullen, ENDOSCOPE TECHNICIAN [address] [address] documented as of this encounter [...] on filedocumented in this encounter Care Teams Benefits Officer Relationship Specialty Start Date End Date Maxx Matos MD [address] [place] [address] PCP - General 10/23/20 11/14/21 Nola Fay APRN [address] [place] [address] PCP - General 11/15/21 07/16/23 Maribel Ambriz APRN [address] [place] [address] PCP - General 07/17/23 documented as of this encounter
--- OUTSIDE RECORDS SUMMARY | 2025-04-02 11:34 | XMS_ITS | Encounter Summary ---
Author Organization Healthcare Address [address] [place] [address] Care Team Providers Care Strip Mine Supervisor Name Role Phone Maxx Matos MD Primary Care Provider [phone] Nola Fay PIPE OUT WORKER Primary Care Provider [phone] Maribel Ambriz PIPE OUT WORKER Primary Care Provider [phone] Encounter Details Date Type Department Care Team (Late Contact Info) Description 10/28/2014 Orders Only External Location [address] [place] [address] Provider, External Social History Tobacco Use Types [...] [facility] [place] [address] [address] Daig[address] [facility] 800 [place] [address] 08/18/2025 11:00 AM EDT Office Visit [facility] [address] [facility], 2nd [place] [address] Corrina Ariza, PIPE OUT WORKER [address] [facility] [address] [place] [address] 09/05/2025 8:20 AM EDT Office Visit [facility] [address] [place] [address] Sujata Cullen, PIPE OUT WORKER [address] [address] documented as of this encounter [...] on filedocumented in this encounter Care Teams Strip Mine Supervisor Relationship Specialty Start Date End Date Maxx Matos MD [address] [place] [address] PCP - General 10/23/20 11/14/21 Nola Fay APRN [address] [place] [address] PCP - General 11/15/21 07/16/23 Maribel Ambriz APRN [address] [place] [address] PCP - General 07/17/23 documented as of this encounter
--- OUTSIDE RECORDS SUMMARY | 2025-04-02 11:34 | XMS_ITS | Encounter Summary ---
Author Organization Healthcare Address [address] [place] [address] Care Team Providers Care Furniture Dipper Name Role Phone Maxx Matos MD Primary Care Provider [phone] Nola Fay INVENTORY MANAGEMENT SPECIALIST Primary Care Provider [phone] Maribel Ambriz INVENTORY MANAGEMENT SPECIALIST Primary Care Provider [phone] Encounter Details Date Type Department Care Team (Late Contact Info) Description 10/13/2015 Orders Only External Location [address] [place] [address] Provider, External Social History Tobacco Use Types [...] Center [facility] [place] [address] Yesenia Daigle [facility] 800 [place] [address] 08/18/2025 11:00 AM EDT Office Visit [facility] [address] [facility], 2nd [place] [address] Corrina Ariza, INVENTORY MANAGEMENT SPECIALIST [address] [facility] [address] [place] [address] 09/05/2025 8:20 AM EDT Office Visit [facility] [address] [place] [address] Sujata Cullen, INVENTORY MANAGEMENT SPECIALIST [address] [address] documented as of this encounter [...] on filedocumented in this encounter Care Teams Furniture Dipper Relationship Specialty Start Date End Date Maxx Matos MD [address] [place] [address] PCP - General 10/23/20 11/14/21 Nola Fay APRN [address] [place] [address] PCP - General 11/15/21 07/16/23 Maribel Ambriz APRN [address] [place] [address] PCP - General 07/17/23 documented as of this encounter
--- OUTSIDE RECORDS SUMMARY | 2025-04-02 11:34 | XMS_ITS | Encounter Summary ---
Author Organization Healthcare Address [address] [place] [address] Care Team Providers Care Glassware Verifier Name Role Phone Maxx Matos MD Primary Care Provider [phone] Nola Fay RAW SAMPLER Primary Care Provider [phone] Maribel Ambriz RAW SAMPLER Primary Care Provider [phone] Encounter Details Date Type Department Care Team (Late st Contact Info) Description 11/25/2019 Orders Only External Location [address] [place] [address] Provider, External Social History Tobacco Use Types [...] Center [facility] [place] [address] Yesenia Daigle [facility] 800 [place] [address] 08/18/2025 11:00 AM EDT Office Visit [facility] [address] [facility], 2nd [place] [address] Corrina Ariza, RAW SAMPLER [address] [facility] [address] [place] [address] 09/05/2025 8:20 AM EDT Office Visit [facility] [address] [place] [address] Sujata Cullen, RAW SAMPLER [address] [address] documented as of this [...] on filedocumented in this encounter Care Teams Glassware Verifier Relationship Specialty Start Date End Date Maxx Matos MD [address] [place] [address] PCP - General 10/23/20 11/14/21 Nola Fay APRN [address] [place] [address] PCP - General 11/15/21 07/16/23 Maribel Ambriz APRN [address] [place] [address] PCP - General 07/17/23 documented as of this encounter
--- OUTSIDE RECORDS SUMMARY | 2025-04-02 11:34 | XMS_ITS | Encounter Summary ---
Author Organization Healthcare Address [address] [place] [address] Care Team Providers Care Wire Coiler Name Role Phone Maxx Matos MD Primary Care Provider [phone] Nola Fay COMMERCIAL LOAN SPECIALIST Primary Care Provider [phone] Maribel Ambriz COMMERCIAL LOAN SPECIALIST Primary Care Provider [phone] Encounter Details Date Type Department Care Team (Late Contact Info) Description 11/08/2016 Orders Only External Location [address] [place] [address] Maxx Matos MD [address] [place] [address] Social History Tobacco Use Types Packs/Day Years [...] [facility] [place] [address] [address] Building [address] [place] [address] 08/18/2025 11:00 AM EDT Office Visit [facility] [address] [facility], 2nd [place] [address] Corrina Ariza, COMMERCIAL LOAN SPECIALIST [address] [facility] Yesenia Daigle [address] [address] 09/05/2025 8:20 AM EDT Office Visit [facility] [address] [place] [address] Sujata Cullen APRN [address] [address] documented as of this encounter [...] on filedocumented in this encounter Care Teams Wire Coiler Relationship Specialty Start Date End Date Maxx Matos MD [address] [place] [address] PCP - General 10/23/20 11/14/21 Nola Fay APRN [address] [place] [address] PCP - General 11/15/21 07/16/23 Maribel Ambriz APRN [address] [facility] [place] [address] PCP - General 07/17/23 documented as of this encounter
== END 2025-04-02 23:59 | disposition home or self-care (01) ==
LOC: RAD 11:00
PROVIDERS: PCP Nurse Practitioner Family; Visit Provider Physician Assistant
DX: M18.9 Osteoarthritis of first carpometacarpal joint, unspecified (principal)
CPT/HCPCS: 73110

== ENCOUNTER 2025-04-07 13:38 | Outpatient (RCR) | payer MEDICARE, SELFPAY ==
--- NOTE | 2025-04-07 14:38 | HMH.OTOPEV ---
OT Evaluation Rehab OT Outpatient Eval Start: 04/07/25 13:56 Freq: Status: Active Protocol: Document 04/07/25 14:23 TYLER (Rec: 04/07/25 14:38 TYLER [id number]) E-signed By Reyna Leal, OT Outpatient Therapy Subjective History Subjective History Pt is a 74 yr old female who presents to initial OP OT eval due to L shoulder pain. Pt reports that aprox 1 year ago on Thanksgiving they fell and had mx torn spots on Labrum. Pt reported they did not need surgery and kept the L shoulder mobile. Pt reports they recently had a fall 2 wks ago and fell on face, however , when they lifted self up they used L shoulder and since then has had significant pain. Pt reports they have hx of arthritis. Pt reports they had an MRI for the initial injury, but none since recent fall. Pt reports they do not work as they are retired and typically drives them. Pt reported they do have a hx of breast cancer and went through surgery, chemo, radiation and lymph node removal on L side on 2013. Pt reported they are R hand dominant. Pt reported tricep pain at night. Based upon clinical findings and observations, pt would benefit from skilled OP OT services and interventions to address functional limitations and improve optimal occupational performance needed for ADLs and IADLs. New diagnosis of No cancer in past 12 months? Chief Complaint Pain,Weakness,Decreased Coordination Symptom Type Throb,Numbness,Tingling Symptoms Relieved By Rest/Positioning,Heat,OTC Meds Symptoms Aggravated Physical Activity,Lifting By Prior Functional None Limitations Current Functional Reaching,Lifting,Housework,Dressing,Sleeping,Recreation Limitations Activity Symptom Description Constant but Variable,Pain at Rest Level of pain today 6 (0-10) Pain scale - at its 5 best (0-10) Pain scale - at its 6 worst (0-10) Shoulder/Elbow Eval Shoulder Objective Measurements Palpation Tenderness tenderness shoulder left exam standard Shoulder Palpation Tenderness Findings Shoulder Palpation palpation tenderness at posterior RTC Overall Comment Shoulder ROM Left Shoulder ROM Muscle Weakness,Pain Limitations Shoulder Abduction 135 Active Range of Motion (degrees) Shoulder Flexion 110 Active Range of Motion (degrees) Query Text: Shoulder External 75 Rotation Active Range of Motion ( degrees) Shoulder Internal 70 Rotation Active Range of Motion ( degrees) pain with active ROM left shoulder exam standard full ROM shoulder left exam standard Shoulder MMT Shoulder Abduction 3- Fair- Strength Grade Shoulder Flexion 3- Fair- Strength Grade Shoulder External 3- Fair- Rotation Strength Grade Shoulder Internal 3- Fair- Rotation Strength Grade Shoulder Strength Sitting Patient Testing Position Elbow Objective Measurements QuickDASH Activities Please rate your ability to do the following activities in the last week by selecting the number below the appropriate response. 1. Open a tight or Severe difficulty new jar. 2. Do heavy Moderate difficulty motorsports technician (e. g., wash harmon, floors). 3. Carry a shopping Moderate difficulty bag or briefcase. 4. Wash your back. Moderate difficulty 5. Use a knife to Mild difficulty cut food. 6. Recreational Moderate difficulty activities in which you take some force or impact through your arm, shoulder, or hand (e.g., golf, hammering, tennis, etc.). 7. During the past Slightly week, to what extent has your arm, shoulder or hand problem interfered with your normal social activities with family, friends , neighbors or groups? 8. During the past Very limited week, were you limited in your work or other regular daily activites as a result of your arm, shoulder or hand problem? 9. Arm, shoulder or Severe hand pain. 10. Tingling (pins Extreme and needles) in your arm, shoulder or hand. 11. During the past Moderate difficulty week, how much difficulty have you had sleeping because of the pain in your arm, shoulder or hand? Quick DASH 36 OT Patient Goals OT Patient Goals OT Short Term 1. Pt will increase left shoulder flexion to 130 Patient Goals degrees in order to complete daily overhead tasks independently ~50% of the time. 2. Pt will increase L shoulder abduction to 145 degrees to complete upper body dressing independently ~50% of the time. 3. Pt will increase L shoulder ER/IR to 80 degrees (ER) and 75 degrees (IR) in order to complete lower body dressing (putting on and taking off belt) independently ~50% of the time. 4. Pt will increase strength to 3+/5 throughout left shoulder in order to complete heavier household tasks ( laundry, mopping, vacuuming) independently ~50% of the time. 5. Pt will verbalize decreased pain levels at worst in L shoulder to a 5/10 in order to complete daily ADLs independently ~50% of the time. 6. Pt will demonstrate improved endurance by completing left shoulder exercises for ~20 minutes prior to rest break in order to increase tolerance for daily work activities. 7. Pt will demonstrate independence with HEP of AAROM exercises to increase overall functional use of left shoulder in daily activities ~75% of the time. 8. Pt will demonstrate improved QuickDash Activities score with 30 or below to demo improve functional occupational performance 75% of time. OT Licensed Embalmer Supervisor Patient 1. Pt will increase left shoulder flexion to 145 Goals degrees in order to complete daily overhead tasks independently ~50% of the time. 2. Pt will increase L shoulder abduction to 155 degrees to complete upper body dressing independently ~50% of the time. 3. Pt will increase L shoulder ER/IR to 85 degrees (ER) and 80 degrees (IR) in order to complete lower body dressing (putting on and taking off belt) independently ~50% of the time. 4. Pt will increase strength to 4-/5 throughout left shoulder in order to complete heavier household tasks ( laundry, mopping, vacuuming) independently ~50% of the time. 5. Pt will verbalize decreased pain levels at worst in L shoulder to a 4/10 in order to complete daily ADLs independently ~50% of the time. 6. Pt will demonstrate improved endurance by completing left shoulder exercises for ~25 minutes prior to rest break in order to increase tolerance for daily work activities. 7. Pt will demonstrate independence with HEP of advanced strengthening exercises to increase overall functional use of left shoulder in daily activities ~75 % of the time. 8. Pt will demonstrate improved QuickDash Activities score with 28 or below to demo improve functional occupational performance 75% of time. OT Outpatient Assessment Impairments Problems/Impairments Palpation Tenderness,Impaired Range of Motion,Impaired Strength,Impaired Endurance,Impaired Lifting,Impaired Dressing,Impaired Shower/Bathing,Impaired Household Care,Impaired Recreational Activities,Subjective C/O Pain,Impaired Self Care/Self Management Prognosis Rehab Potential Good Clinical Impression Consistent with Yes Diagnosis Outpatient Therapy Plan of Care Treatment Plan May Include Therapeutic Exercise Yes Including Home Exercise Program Manual Therapy Yes Techniques Neuromuscular Re- Yes education Therapeutic Yes Activities to Return to Previous Functional/Work Level ADL/Self Care Yes Education Thermal Modalities Yes Electrical Yes Stimulation Ultrasound/ Yes Phonophoresis Iontophoresis Yes Parrafin Yes Orthotics/Bracing/ Yes Splinting Group Therapy for Yes Medicare Eval/Re-Eval Yes Frequency Times per week 2 Duration Number of Weeks 8 Addendums This patient is a No candidate for social or vocational rehab ? Patient/Guardian Yes verbally acknowledges understanding of treatment program and consents to further treatment? Patient/Guardian Yes verbally acknowledges understanding of diagnosis, prognosis and goals for treatment? Eval Complexity OT Charge [id number] - Moderate Complexity PHYSICIAN CERTIFICATION: I certify the specified therapy services for Nichole Morales are required, authorized, and reviewed every 30 days.
== END 2025-04-07 23:59 | disposition home or self-care (01) ==
LOC: OT 13:38
PROVIDERS: PCP Nurse Practitioner Family; Visit Provider Physician Assistant
DX: M25.512 Pain in left shoulder (principal)
CPT/HCPCS: 97166

== ENCOUNTER 2025-04-21 14:39 | Outpatient (CLI) | payer MEDICARE, SELFPAY ==
--- NOTE | 2025-04-21 14:41 | XR_ITS ---
FINAL REPORT CLINICAL HISTORY: left hallux cellulitis, r/o fracture pt stated she has a puncture wound on the 1st mtp has been there for x 1 week , still not getting any better FINDINGS: LEFT FOOT Three views were obtained. There is no fracture or dislocation. The joint spaces appear normal. There are 2 radiodensities which could represent calcification or less likely foreign bodies. One is near the medial first metatarsal neck measuring 3 mm. The second is medial to the fifth metatarsal head measuring 3 mm. There is mild calcaneal spurring. IMPRESSION: No fracture identified. Densities near the first metatarsal neck and medial to the fifth metatarsal, favor calcification over foreign bodies. Reviewed, Interpreted and Dictated by Scott Wong MD Transcribed by Nurys Brown Authenticated and [facility]
--- OUTSIDE RECORDS SUMMARY | 2025-04-21 14:42 | XMS_ITS | Encounter Summary ---
Author Organization Healthcare Address [address] [place] [address] Care Team Providers Care Supervisor Loading Name Role Phone Maxx Matos MD Primary Care Provider [phone] Nola Fay EYEGLASS FRAMES INSPECTOR Primary Care Provider [phone] Maribel Ambriz EYEGLASS FRAMES INSPECTOR Primary Care Provider [phone] Encounter Details Date Type Department Care Team (Late st Contact Info) Description 11/13/2017 Orders Only External Location [address] [place] [id number] Provider, External Social History Tobacco Use Types [...] [facility] [place] [address] [address] [address] [place] [address] 08/18/2025 11:00 AM EDT Office Visit [facility] [address] [place] [address] Corrina Ariza, EYEGLASS FRAMES INSPECTOR [address] [facility] [address] [place] [address] 09/05/2025 8:20 AM EDT Office Visit [facility] [address] [place] [id number] Sujata Cullen, EYEGLASS FRAMES INSPECTOR [address] [address] documented as of this encounter [...] filedocumented in this encounter Care Teams Supervisor Loading Relationship Specialty Start Date End Date Maxx Matos MD [address] [place] [id number] PCP - General 10/23/20 11/14/21 Nola Fay APRN [address] [place] [address] PCP - General 11/15/21 07/16/23 Maribel Ambriz APRN [address] [place] [address] PCP - General 07/17/23 documented as of this encounter
--- OUTSIDE RECORDS SUMMARY | 2025-04-21 14:42 | XMS_ITS | Clinical Summary ---
Author Organization [facility] Address [address] [place] [address] Care Team Providers Care Hospice Physician Name Role Phone Maribel Ambriz SUPERVISOR INSULATION Primary Care Provider [phone] Allergies Active Allergy Reactions Criticality Noted Date [...] Gluc Sensor (FreeStyle Mounika 14 Day Sensor) [facility] [place] 08/09/19 24 Active Repatha SureClick 140 MG/ML solution auto-injector INJECT 1 AUTO INJECTOR SUBCUTANEOUSLY EVERY TWO WEEKS 08/03/19 24 Active calcitriol (Rocaltrol) 0.25 MCG capsule 02/15/20 24 Active gabapentin (Neurontin) 100 MG capsule 02/13/20 24 Active nystatin (Mycostatin) 390520 UNIT/ML suspension 02/13/20 24 Active levocetirizine (Xyzal) 5 MG tablet Take 1 tablet (5 mg) by mouth. 02/14/20 24 Active pregabalin (Lyrica) 25 MG capsule Take 1 capsule by mouth 2 times a day. Active cholecalciferol (Vitamin D-3) 250 MCG (66007 UT) capsule Take 1 capsule by mouth [...] Brother Kris CAD (cor onary artery disease), stebbins coronary artery Diabetes Brother Kris Heart disease [...] [facility] [place] [address] 08/18/2025 11:00 AM EDT Office Visit [facility] [address] [place] [address] Corrina Ariza, SUPERVISOR INSULATION [address] [place] [address] 09/05/2025 8:20 AM EDT Office Visit [facility] [address] [place] [address] Sujata Cullen, SUPERVISOR INSULATION [address] [facility] [address] [place] [address] Health Maintenance Due Date Last Done Comments [facility]-Bone Density Scan 1950 [facility]-Depression Screening 1950 [facility]-Hepatitis C Screening 1950 [facility]-Medicare Annual Wellness (AWV) 1950 [facility]-/Child/Adol SDOH Screenings 1950 Diabetes: Dental Exam 1960 [facility]- SDOH Screenings 1968 [facility]-Adult SDOH Screenings 1968 [facility]-Zoster Vaccines (1 of 2) 1969 CT Colonography 09/19/1995 Colonoscopy 09/19/1995 [facility]-DNA 09/19/1995 FIT 09/19/1995 FOBT 09/19/1995 Sigmoidoscopy 09/19/1995 [facility]-Colorectal Cancer Screening 09/19/1995 [facility]-RSV Vaccine: 60+ Years or (1 - Risk 60-74 years 1-dose series) 2010 [facility]-Diabetes: Hemoglobin A1C 12/12/2019 06/14/2019 [id number] Vaccine ( season) 2025 07/21/2021, 09/10/2020, 08/13/2020 [...] this topic Medical Devices Implanted Type Area Assembler Molded Frames Device Identifier Shelf Expiration Date Model / Serial / Lot [employer] Eviva Std - [id number] Implanted:Qty: 1 on 08/10/2023 by Lien Arana MD at [facility] Left: [facility] [place], [place] [id number] -SVISION / / Procedures Procedure Name Priority [...] 2013 (with SLN bx); hysterectomy (Hysterectomy from [facility]); left breast surgery, 2013 (with SLN bx); and left breast lumpectomy, 2013 (with SLN bx). Medical history includes breast cancer, 2013 (left breast); radiation therapy, 2013 (left breast); and chemotherapy, 2013. COMPARISON STUDIES: Compared to: 12/01/2020 Mammography Outside Images Upload 12/21/2021 Mammography Outside Images Upload 01/05/2022 Mammography Outside Images Upload 07/17/2023 Mammography Breast Diagnostic Tomosynthesis Bilateral at [facility] 08/07/2023 Mammography Breast Post Biopsy Clip Left at [facility] 08/10/2023 Mammography Stereotactic Breast Biopsy Left at [facility] 08/10/2023 Mammography Breast Post Biopsy Clip Left at [facility] 02/16/2024 Mammography Breast Diagnostic Tomosynthesis Left at [facility] BREAST COMPOSITION: There are scattered areas of fibroglandular density. FINDINGS: There are post-lumpectomy changes present in the left breast. There is no evidence of suspicious masses, calcifications, or other abnormal findings. us Corrina Ariza SUPERVISOR INSULATION IMG BI PROCEDURES Final Re sult * [...] <6.0% Children and Adolescents <7.5% . Source: [place] [employer]. Standards of medical care in diabetes, 2017. Diabetes Care.2017:40 (suppl 1):S1-S135. . HbA1c assay performed by an ion-exchange chromatography method that is certified traceable to the DCCT. 06/14/2019 3:55 AM EST 06/14/2019 4:15 AM EST us Linda Pereyra APRN LAB BLOOD ORDERABLES Final Res ult SUNQUEST from Last 3 Months or Most Recently Relevant to Health Maintenance Insurance Care Teams Hospice Physician Relationship Specialty Start Date End Date Maribel Ambriz APRN [address] [place] [address] PCP - General 07/17/23
--- OUTSIDE RECORDS SUMMARY | 2025-04-21 14:42 | XMS_ITS | Clinical Summary ---
Author Organization [facility] , [facility] Address [address] [place] [address] Phone Care Team Providers Care It Program Auditor Name Role Phone CM DIALLO, СВЕТЛАНА Unavailable [phone] Sania DIALLO, Brayden Ariza Primary Care Provider [phone] Reason for Visit and Chief Complaint The Chief Complaint is: Neck pain Problems Includes: Problems addressed during this encounter and other active Problems Current Visit Onset Date Resolved Date Provider Conditio n Status Lower Back Pain 01/14/2021 Juvenal Healy MD Act girish Last Documented On 1 9:59AM ; [facility] Past Visits Onset Date Resolved Date Provider Condition Status Neck Pain 09/23/2021 Juvenal Healy MD Active Last Documented On 2 8:43AM ; [facility] Bone Pain in the Left Hand 04/15/2016 Brayden Lui MD Active Last Documented On 6 9:03AM ; [facility] Plan of Treatment Fall Risk Assessment: This [...] - Last Documented On 11/01/2021 9:56AM ; [facility] Patient was seen by myself Bunny Croft PA-C. Patient will follow up as needed recommend if she wants another epidural she can call to schedule that for her neck but right now she is doing fine and things are manageable continue with exercises on her own - Last Documented On 11/01/2021 9:56AM ; [facility], [facility] Instructions to patient Lose weight Last Documented On 2 9:33AM ; [facility], [facility] Assessments Includes: Assessments from this encounter Findings C4-C7 DDD - Last Documented On 11/01/2021 9:56AM ; [facility], [facility] Instructions Includes: Instructions from this encounter Instructions to patient Lose weight Last Documented On 2 9:33AM ; [facility], [facility] Medical Equipment - Implanted Devices Includes: Current Devices No Medical Equipment Recorded Medications Includes: Medications discussed during this encounter and other current Medications Current Medications (continue as prescribed) Furosemide 20 MG Oral Tablet 01/12/2021 Provider: Diagnosis: Last Documented On 3:54PM By Mary Mims ; [facility], [facility] NovoLIN 70/30 ReliOn (70-30) 100 UNIT/ML Subcutaneous Suspension 01/08/2021 Provider: СВЕТЛАНА PABON MD Diagnosis: Last Documented On 3:54PM By Mary Mims ; [facility], [facility] Repatha SureClick 140 MG/ML Subcutaneous Solution Auto-injector 01/03/2021 Provider: Diagnosis: Last Documented On 3:54PM By Mary Mims ; [facility], [facility] tiZANidine HCl 4 MG Oral Tablet 12/23/2020 Provider: СВЕТЛАНА PABON MD Diagnosis: Last Documented On 3:54PM By Mary Mims ; [facility], [facility] ARIPiprazole 2 MG Oral Tablet 12/19/2020 Provider: СВЕТЛАНА PABON MD Diagnosis: Last Documented On 3:54PM By Mary Mims ; [facility], [facility] Ezetimibe 10 MG Oral Tablet 12/02/2020 Provider: СВЕТЛАНА PABON MD Diagnosis: Last Documented On 3:54PM By Mary Mims ; [facility], [facility] Carvedilol 25 MG Oral Tablet 12/02/2020 Provider: Diagnosis: Last Documented On 3:54PM By Mary Mims ; [facility], [facility] Escitalopram Oxalate 20 MG Oral Tablet 11/25/2020 Pr ovider: СВЕТЛАНА PABON MD Diagnosis: Last Documented On 1 3:54PM By Mary Mims ; [facility] Savella 50 MG Oral Tablet 11/22/2020 Provider: [facility] HER[facility]DA PABON MD Diagnosis: Last Documented On 1 3:54PM By Mary Mims ; [facility], [facility] Lansoprazole 30 MG Oral Capsule Delayed Release 2020 Provider: СВЕТЛАНА PABON MD Diagnosis: Last Documented On 1 3:54PM By Mary Mims ; [facility], [facility] Clopidogrel Bisulfate 75 MG Oral Tablet 10/29/2020 Mela alvarezder: Diagnosis: Last Documented On 1 3:54PM By Mary Mims ; [facility], [facility] [place] 7.5-325 MG Tablet 05/16/2016 Provider: Oliver Lui MD Diagnosis: 1-2 po q6h prn pain Last Documented On 6 12:33PM By Santa Bedoya ; [facility], [facility] Past Medications on file [place] 5-325MG Oral Tablet 10/27/2017 - 11/26/2017 Prov ider: Juvenal Healy MD Diagnosis: 1-2 po q 4-6h prn for pain surgery 11/01/17 Last Documented On 8 2:12PM By Annalise Arias ; [facility], [facility] [place] 5-325MG Oral Tablet 09/15/2017 - 10/15/2017 Prov ider: Juvenal Healy MD Diagnosis: 1-2 po q 4-6h prn for pain surgery 09/20/17 Last Documented On 8 9:44AM By Annalise Arias ; [facility], [facility] Lortab 7.5-500 MG OR TABS 02/06/2012 - 02/11/2012 Prov ider: Brayden Lui MD Diagnosis: Last Documented On 2 12:46PM By Samaria Alonzo ; [facility], [facility] Clindamycin HCl 150 MG OR CAPS 02/06/2012 - 02/09/2012 Provider: Brayden Lui MD Diagnosis: Last Documented On 2 12:46PM By Samaria Alonzo ; [facility], [facility] Medications Administered Includes: Administered Medications from this encounter No Administered Medications Recorded Vital Signs Includes: Vital Signs from this encounter Vital Name 11/01/2021 09:45A Blood Pressure Sitting (mmHg) 111/43 Pulse Rate-Sitting (bpm) 66 Height (in) 63 Weight (lb) 215 Body Mass Index (kg/m2) 38.1 Body Surface Area (m2) 2.0 Note: mg Last Documented: On 11/01/2021 9:45AM ; [facility], [facility] Results Includes: Results discussed during this encounter [...] 01/14/2021 Last Documented On 2 9:32AM ; [facility], [facility] Recent change in diet 01/14/2021 Last Documented On 2 9:32AM ; [facility], [facility] Non-smoker 01/14/2021 Last Documented On 2 9:32AM ; [facility] Caffeine use 10/04/2017 Last Documented On 2 9:32AM ; [facility] Exercising regularly 10/04/2017 Last Documented On 2 9:32AM ; [facility] No tobacco use 10/04/2017 Last Documented On 2 9:32AM ; [facility], [facility] Not a current smoker 10/04/2017 Last Documented On 2 9:32AM ; [facility] Not using alcohol 10/04/2017 Last Documented On 2 9:32AM ; [facility] Not using drugs 10/04/2017 Last Documented On 2 9:32AM ; [facility] Smoking status : Never smoker 10/04/2017 Last Documented On 2 9:32AM ; [facility], [facility] Procedures and Surgical History Includes: Procedures from this encounter Procedures Code Diagnosis Performing Provider Service L ocation Service Date use of tobacco assessment performed 1000F Last Documented On 2 9:33AM ; [facility] no influenza immunization patient refuse d Last Documented On 2 9:45AM ; [facility] patient screened for future fall risk 3288F Last Documented On 2 9:33AM ; [facility] Surgical History Last Updated History of hysterectomy 10/04/2017 Last Documented On 2 9:32AM ; [facility] Medical History Includes: Medical History addressed during this encounter Description Last Updated No recent immunization for flu 2 Last Documented On 2 9:56AM ; [facility] No recent immunization for pneumococcal pneumonia 11/01/2021 Last Documented On 2 9:56AM ; [facility] Arthritis 01/14/2021 Last Documented On 2 9:32AM ; [facility] Heartburn / Acid Reflux 01/14/2021 Last Documented On 2 9:32AM ; [facility] History of Cancer 01/14/2021 Last Documented On 2 9:32AM ; [facility] History of heart disease 01/14/2021 Last Documented On 2 9:32AM ; [facility] Hypertension 01/14/2021 Last Documented On 2 9:32AM ; [facility] Heart surgery 01/14/2021 Last Documented On 2 9:32AM ; [facility] Hysterectomy 01/14/2021 Last Documented On 2 9:32AM ; [facility] Past Surgical History: trigger finger SX 01/14/2021 Last Documented On 2 9:32AM ; [facility], [facility] Past medical history non-contributory ~h igh cholesterol ~heartburn 10/19/2017 Last Documented On 2 9:32AM ; [facility] A history of cancer 10/04/2017 Last Documented On 2 9:32AM ; [facility] Arthritic joint problems 10/04/2017 Last Documented On 2 9:32AM ; [facility] History of depression 10/04/2017 Last Documented On 2 9:32AM ; [facility] History of diabetes mellitus 10/04/2017 Last Documented On 2 9:32AM ; [facility] History of diverticulitis of colon 10/04 Last Documented On 2 9:32AM ; [facility] Intermittent hypertension 10/04/2017 Last Documented On 2 9:32AM ; [facility] Family History Includes: Family History addressed during this encounter Description Last Updated stroke/seizure: brother 10/04/2017 Last Documented On 2 9:32AM ; [facility], [facility] Family history of cancer father/sister 0 10/04/2017 Last Documented On 2 9:32AM ; [facility], [facility] Family history of heart disease mother 0 10/04/2017 Last Documented On 2 9:32AM ; [facility] Family history of hypertension mother/fa ther/sister/brother 10/04/2017 Last Documented On 2 9:32AM ; [facility] Family history of thromboembolic disease mother 10/04/2017 Last Documented On 2 9:32AM ; [facility], [facility] Review of Systems Includes: Review of Systems [...] Active Last Documented On 2 9:32AM ; [facility] Encounters Encounter Provider Location Date Check-In Time Check- Out Time Diagnosis Follow Up Bunny Croft PA-C [facility] 2 9:29AM 9:55AM Insurance Includes: Active Insurance Policies Plan Name Member ID Group # Subscriber Relationship Effect girish Dates 1 - [employer] [id number] Nicholemichael Keane 06/12/2017 - Unknown Clinical Notes Includes: Clinical Notes from this encounter No Clinical Notes Recorded
--- OUTSIDE RECORDS SUMMARY | 2025-04-21 14:42 | XMS_ITS | Encounter Summary ---
Author Organization Healthcare Address [address] [place] [address] Care Team Providers Care Senior Pensions Administrator Name Role Phone Maxx Matos MD Primary Care Provider [phone] Nola Fay X RAY TECH Primary Care Provider [phone] Maribel Ambriz X RAY TECH Primary Care Provider [phone] Encounter Details Date Type Department Care Team (Late Contact Info) Description 09/24/2013 Orders Only External Location [address] [place] [address] Maxx Matos MD [address] [place] [address] Social History Tobacco Use Types Packs/Day Years [...] [facility] [place] [address] [address] [place] [address] 08/18/2025 11:00 AM EDT Office Visit [facility] [address] [facility]nd [place] [address] Corrina Ariza, X RAY TECH [address] [facility] [address] [address] 09/05/2025 8:20 AM EDT Office Visit [facility] [address] [place] [address] Sujata [place] APRN [address] [address] documented as of this encounter [...] on filedocumented in this encounter Care Teams Senior Pensions Administrator Relationship Specialty Start Date End Date Maxx Matos MD [address] [place] [address] PCP - General 10/23/20 11/14/21 Nola Fay APRN [address] [place] [address] PCP - General 11/15/21 07/16/23 Maribel Ambriz APRN [address] [facility] [place] [address] PCP - General 07/17/23 documented as of this encounter
--- OUTSIDE RECORDS SUMMARY | 2025-04-21 14:42 | XMS_ITS | Encounter Summary ---
Author Organization Healthcare Address [address] [place] [address] Care Team Providers Care Transcribing Machine Operator Name Role Phone Nola Fay APRN Primary Care Provider [phone] Maribel Ambriz BATCH OR CONTINUOUS STILL OPERATOR Primary Care Provider [phone] Encounter Details Date Type Department Care Team (Late st Contact Info) Description 01/05/2022 Orders Only External Location [address] [place] [address] Provider, External Social History Tobacco [...] Center [facility] [place] [address] [address] [facility] [address] [place] [address] 08/18/2025 11:00 AM EDT Office Visit [facility] [address] [facility] 2nd [place] [address] Corrina Ariza, BATCH OR CONTINUOUS STILL OPERATOR [address] [facility] [address] [place] [address] 09/05/2025 8:20 AM EDT Office Visit [facility] [address] [place] [id number] Sujata [place], BATCH OR CONTINUOUS STILL OPERATOR [address] [address] documented as of this encounter [...] on filedocumented in this encounter Care Teams Transcribing Machine Operator Relationship Specialty Start Date End Date Nola Fay APRN [address] [place] [address] PCP - General 11/15/21 07/16/23 Maribel Ambriz APRN [address] [place] [address] PCP - General 07/17/23 documented as of this encounter
--- OUTSIDE RECORDS SUMMARY | 2025-04-21 14:42 | XMS_ITS | Clinical Summary ---
Author Organization [facility] , [facility] Address [address] [place] [address] Phone Care Team Providers Care Lead Quality Control Technician Name Role Phone CM DIALLO, СВЕТЛАНА Unavailable [phone] Sania DIALLO, Brayden Ariza Primary Care Provider [phone] Reason for Visit and Chief Complaint Epidural Steroid Injection Problems Includes: Problems addressed during this encounter and other active Problems All Visits Onset Date Resolved Date Provider Condition S tatus Neck Pain 09/23/2021 Juvenal Healy MD Active Last Documented On 2 8:43AM ; [facility], [facility] Lower Back Pain 01/14/2021 Juvenal Healy MD Act girish Last Documented On 1 9:59AM ; [facility] Bone Pain in the Left Hand 04/15/2016 Brayden Lui MD Active Last Documented On 6 9:03AM ; [facility], [facility] Plan of Treatment No Plan [...] On 1 3:54PM By Mary Mims ; [facility], [facility] NovoLIN 70/30 ReliOn (70-30) 100 UNIT/ML Subcutaneous Suspension 01/08/2021 Provider: СВЕТЛАНА PABON MD Diagnosis: Last Documented On 1 3:54PM By Mary Mims ; [facility], [facility] Repatha SureClick 140 MG/ML Subcutaneous Solution Auto-injector 01/03/2021 Provider: Diagnosis: Last Documented On 3:54PM By Mary Mims ; [facility], [facility] tiZANidine HCl 4 MG Oral Tablet 12/23/2020 Provider: СВЕТЛАНА PABON MD Diagnosis: Last Documented On 3:54PM By Mary Mims ; [facility], [facility] ARIPiprazole 2 MG Oral Tablet 12/19/2020 Provider: СВЕТЛАНА PABON MD Diagnosis: Last Documented On 3:54PM By Mary Mims ; [facility], [facility] Ezetimibe 10 MG Oral Tablet 12/02/2020 Provider: СВЕТЛАНА PABON MD Diagnosis: Last Documented On 3:54PM By Mary Mims ; [facility], [facility] Carvedilol 25 MG Oral Tablet 12/02/2020 Provider: Diagnosis: Last Documented On 3:54PM By Mary Mims ; [facility], [facility] Escitalopram Oxalate 20 MG Oral Tablet 11/25/2020 Pr ovider: СВЕТЛАНА PABON MD Diagnosis: Last Documented On 3:54PM By Mary Mims ; [facility], [facility] Savella 50 MG Oral Tablet 11/22/2020 Provider: [facility] HER[facility]DA PABON MD Diagnosis: Last Documented On 3:54PM By Mary Mims ; [facility], [facility] Lansoprazole 30 MG Oral Capsule Delayed Release 2020 Provider: СВЕТЛНАА PABON MD Diagnosis: Last Documented On 1 3:54PM By Mary Mims ; [facility], [facility] Clopidogrel Bisulfate 75 MG Oral Tablet 10/29/2020 P rovider: Diagnosis: Last Documented On 3:54PM By Mary Mims ; [facility], [facility] [place] 7.5-325 MG Tablet 05/16/2016 Provider: Oliver Lui MD Diagnosis: 1-2 po q6h prn pain Last Documented On 6 12:33PM By Santa Bedoya ; [facility] Medications Administered Includes: Administered Medications from [...] Active Last Documented On 2 9:32AM ; [facility] Encounters Encounter Provider Location Date Check-In Time Check-Out Time Diagnosis Epidural Steroid Injection Juvenal Healy MD [facility] 09/03/19 22 12:37PM 1:30PM Insurance Includes: Active Insurance Policies Plan Name Member ID Group # Subscriber Relationship Effect girish Dates 1 - [employer] [id number] Nichole Morales Self 06/12/2017 - Unknown Clinical Notes Includes: Clinical Notes from this encounter No Clinical Notes Recorded
--- OUTSIDE RECORDS SUMMARY | 2025-04-21 14:42 | XMS_ITS | Encounter Summary ---
Author Organization Healthcare Address [address] [place] [address] Care Team Providers Care Varnish Blender Name Role Phone Maxx Matos MD Primary Care Provider [phone] Nola Fay ENVIRONMENTAL REMEDIATION ENGINEER Primary Care Provider [phone] Maribel Ambriz ENVIRONMENTAL REMEDIATION ENGINEER Primary Care Provider [phone] Encounter Details Date Type Department Care Team (Late Contact Info) Description 11/15/2018 Orders Only External Location [address] [place] [id number] Provider, External Social History Tobacco Use Types [...] [facility] [place] [address] [address] [facility] [address] [place] [address] 08/18/2025 11:00 AM EDT Office Visit [facility] [address] [facility] [place] [address] Corrina Ariza, ENVIRONMENTAL REMEDIATION ENGINEER [address] [facility] [address] [facility] [address] [place] [address] 09/05/2025 8:20 AM EDT Office Visit [facility] [address] [place] [address] Sujata [place], ENVIRONMENTAL REMEDIATION ENGINEER [address] [address] documented as of this encounter [...] on filedocumented in this encounter Care Teams Varnish Blender Relationship Specialty Start Date End Date Maxx Matos MD [address] [place] [address] PCP - General 10/23/20 11/14/21 Nola Fay APRN [address] [place] [address] PCP - General 11/15/21 07/16/23 Maribel Ambriz APRN [address] [place] [address] PCP - General 07/17/23 documented as of this encounter
--- OUTSIDE RECORDS SUMMARY | 2025-04-21 14:42 | XMS_ITS | Clinical Summary ---
Author Organization [facility] , [facility] Address [address] [place] [address] Phone Care Team Providers Care Web Producer Name Role Phone CM DIALLO, СВЕТЛАНА Unavailable [phone] Sania DIALLO, Brayden Ariza Primary Care Provider [phone] Reason for Visit and Chief Complaint Epidural Steroid Injection Problems Includes: Problems addressed during this encounter and other active Problems All Visits Onset Date Resolved Date Provider Condition S tatus Neck Pain 09/23/2021 Juvenal Healy MD Active Last Documented On 2 8:43AM ; [facility], [facility] Lower Back Pain 01/14/2021 Juvenal Healy MD Act girish Last Documented On 1 9:59AM ; [facility], [facility] Bone Pain in the Left Hand 04/15/2016 Brayden Lui MD Active Last Documented On 6 9:03AM ; [facility], [facility] Plan of Treatment No Plan of Treatment Recorded Assessments Includes: Assessments from this encounter No Assessments Recorded Medical Equipment - Implanted Devices Includes: Current Devices No Medical Equipment Recorded Medications Includes: Medications discussed during this encounter and other current Medications Current Medications (continue as prescribed) Furosemide 20 MG Oral Tablet 01/12/2021 Provider: Diagnosis: Last Documented On 1 3:54PM By Mary Mims ; [facility], [facility] NovoLIN 70/30 ReliOn (70-30) 100 UNIT/ML Subcutaneous Suspension 01/08/2021 Provider: СВЕТЛАНА PABON MD Diagnosis: Last Documented On 1 3:54PM By Mary Mims ; [facility], [facility] Repatha SureClick 140 MG/ML Subcutaneous Solution Auto-injector 01/03/2021 Provider: Diagnosis: Last Documented On 3:54PM By Mary Mims ; [facility], [facility] tiZANidine HCl 4 MG Oral Tablet 12/23/2020 Provider: СВЕТЛАНА PABON MD Diagnosis: Last Documented On 3:54PM By Mary Mims ; [facility], [facility] ARIPiprazole 2 MG Oral Tablet 12/19/2020 Provider: СВЕТЛАНА PABON MD Diagnosis: Last Documented On 3:54PM By Mary Mims ; [facility], [facility] Ezetimibe 10 MG Oral Tablet 12/02/2020 Provider: СВЕТЛАНА PABON MD Diagnosis: Last Documented On 3:54PM By Mary Mims ; [facility], [facility] Carvedilol 25 MG Oral Tablet 12/02/2020 Provider: Diagnosis: Last Documented On 3:54PM By Mary Mims ; [facility], [facility] Escitalopram Oxalate 20 MG Oral Tablet 11/25/2020 Pr ovider: СВЕТЛАНА PABON MD Diagnosis: Last Documented On 3:54PM By Mary Mims ; [facility], [facility] Savella 50 MG Oral Tablet 11/22/2020 Provider: [facility] PABON MD Diagnosis: Last Documented On 3:54PM By Mary Mims ; [facility], [facility] Lansoprazole 30 MG Oral Capsule Delayed Release 2020 Provider: СВЕТЛАНА PABON MD Diagnosis: Last Documented On 1 3:54PM By Mary Mims ; [facility], [facility] Clopidogrel Bisulfate 75 MG Oral Tablet 10/29/2020 P rovider: Diagnosis: Last Documented On 3:54PM By Mary Mims ; [facility], [facility] [place] 7.5-325 MG Tablet 05/16/2016 Provider: Oliver Lui MD Diagnosis: 1-2 po q6h prn pain Last Documented On 6 12:33PM By Santa Bedoya ; [facility], [facility] Medications Administered Includes: Administered Medications from [...] Active Last Documented On 2 9:32AM ; [facility] Encounters Encounter Provider Location Date Check-In Time Check-Out Time Diagnosis Epidural Steroid Injection Juvenal Healy MD 10/06/2021 4:21PM 11:59PM Insurance Includes: Active Insurance Policies Plan Name Member ID Group # Subscriber Relationship Effect girish Dates 1 - [employer] [id number] Nichole Morales Self 06/12/2017 - Unknown Clinical Notes Includes: Clinical Notes from this encounter No Clinical Notes Recorded
--- OUTSIDE RECORDS SUMMARY | 2025-04-21 14:42 | XMS_ITS | Clinical Summary ---
Author Organization [facility] , [facility] Address [address] [place] [address] Phone Care Team Providers Care Signaling Design Engineer Name Role Phone CM DIALLO, СВЕТЛАНА Unavailable [phone] Sania DIALLO, Brayden Ariza Primary Care Provider [phone] Reason for Visit and Chief Complaint The Chief Complaint is: Neck pain Problems Includes: Problems addressed during this encounter and other active Problems Current Visit Onset Date Resolved Date Provider Conditio n Status Neck Pain 09/23/2021 Juvenal Healy MD Active Last Documented On 2 8:43AM ; [facility], [facility] Lower Back Pain 01/14/2021 Juvenal Healy MD Act girish Last Documented On 1 9:59AM ; [facility], [facility] Past Visits Onset Date Resolved Date Provider Condition Status Bone Pain in the Left Hand 04/15/2016 Brayden Lui MD Active Last Documented On 6 9:03AM ; [facility], [facility] Plan of Treatment Fall Risk Assessment: [...] - Last Documented On 09/23/2021 2:55PM ; [facility], [facility] Pending Tests Order Diagnosis Results Due Ordering P rovider Therapy - Physical Therapy Cervical 09/23/21 Juvenal Healy MD Last Documented On 2 2:55PM ; [facility], [facility] Instructions to patient Lose weight Last Documented On 2 8:44AM ; [facility], [facility] Assessments Includes: Assessments from this encounter No Assessments Recorded Instructions Includes: Instructions from this encounter Instructions to patient Lose weight Last Documented On 2 8:44AM ; [facility], [facility] Medical Equipment - Implanted Devices Includes: Current Devices No Medical Equipment Recorded Medications Includes: Medications discussed during this encounter and other current Medications Current Medications (continue as prescribed) Furosemide 20 MG Oral Tablet 01/12/2021 Provider: Diagnosis: Last Documented On 3:54PM By Mary Mims ; [facility], [facility] NovoLIN 70/30 ReliOn (70-30) 100 UNIT/ML Subcutaneous Suspension 01/08/2021 Provider: СВЕТЛАНА PABON MD Diagnosis: Last Documented On 3:54PM By Mary Mims ; [facility], [facility] Repatha SureClick 140 MG/ML Subcutaneous Solution Auto-injector 01/03/2021 Provider: Diagnosis: Last Documented On 3:54PM By Mary Mims ; [facility], [facility] tiZANidine HCl 4 MG Oral Tablet 12/23/2020 Provider: СВЕТЛАНА PABON MD Diagnosis: Last Documented On 1 3:54PM By Mary Mims ; [facility], [facility] ARIPiprazole 2 MG Oral Tablet 12/19/2020 Provider: СВЕТЛАНА PABON MD Diagnosis: Last Documented On 1 3:54PM By Mary Mims ; [facility], [facility] Ezetimibe 10 MG Oral Tablet 12/02/2020 Provider: СВЕТЛАНА PABON MD Diagnosis: Last Documented On 3:54PM By Mary Mims ; [facility], [facility] Carvedilol 25 MG Oral Tablet 12/02/2020 Provider: Diagnosis: Last Documented On 1 3:54PM By Mary Mims ; [facility], [facility] Escitalopram Oxalate 20 MG Oral Tablet 11/25/2020 Pr ovider: СВЕТЛАНА PABON MD Diagnosis: Last Documented On 3:54PM By Mary Mims ; [facility], [facility] Savella 50 MG Oral Tablet 11/22/2020 Provider: [facility] PABON MD Diagnosis: Last Documented On 1 3:54PM By Mary Mims ; [facility] Lansoprazole 30 MG Oral Capsule Delayed Release 2020 Provider: СВЕТЛАНА PABON MD Diagnosis: Last Documented On 1 3:54PM By Mary Mims ; [facility] Clopidogrel Bisulfate 75 MG Oral Tablet 10/29/2020 P antonioder: Diagnosis: Last Documented On 1 3:54PM By Mary Mims ; [facility], [facility] [place] 7.5-325 MG Tablet 05/16/2016 Provider: Oliver Lui MD Diagnosis: 1-2 po q6h prn pain Last Documented On 6 12:33PM By Santa Bedoya ; [facility], [facility] Past Medications on file [place] 5-325MG Oral Tablet 10/27/2017 - 11/26/2017 Prov ider: Juvenal Healy MD Diagnosis: 1-2 po q 4-6h prn for pain surgery 11/01/17 Last Documented On 8 2:12PM By Annalise Arias ; [facility] [place] 5-325MG Oral Tablet 09/15/2017 - 10/15/2017 Prov ider: Juvenal Healy MD Diagnosis: 1-2 po q 4-6h prn for pain surgery 09/20/17 Last Documented On 8 9:44AM By Annalise Arias ; [facility], [facility] Lortab 7.5-500 MG OR TABS 02/06/2012 - 02/11/2012 Prov ider: Brayden Lui MD Diagnosis: Last Documented On 2 12:46PM By Samaria Alonzo ; [facility], [facility] Clindamycin HCl 150 MG OR CAPS 02/06/2012 - 02/09/2012 Provider: Brayden Lui MD Diagnosis: Last Documented On 2 12:46PM By Samaria Alonzo ; [facility], [facility] Medications Administered Includes: Administered Medications from this encounter No Administered Medications Recorded Vital Signs Includes: Vital Signs from this encounter Vital Name 09/23/2021 08:44A Blood Pressure Sitting (mmHg) 124/51 Pulse Rate-Sitting (bpm) 68 Height (in) 63 Weight (lb) 207 Body Mass Index (kg/m2) 36.7 Body Surface Area (m2) 2.0 Last Documented: On 09/23/2021 2:54PM ; [facility], [facility] Results Includes: Results discussed during this encounter [...] 01/14/2021 Last Documented On 2 8:43AM ; [facility], [facility] Recent change in diet 01/14/2021 Last Documented On 2 8:43AM ; [facility], [facility] Non-smoker 01/14/2021 Last Documented On 2 8:43AM ; [facility] Caffeine use 10/04/2017 Last Documented On 2 8:43AM ; [facility], [facility] Exercising regularly 10/04/2017 Last Documented On 2 8:43AM ; [facility], [facility] No tobacco use 10/04/2017 Last Documented On 2 8:43AM ; [facility], [facility] Not a current smoker 10/04/2017 Last Documented On 2 8:43AM ; [facility] Not using alcohol 10/04/2017 Last Documented On 2 8:43AM ; [facility] Not using drugs 10/04/2017 Last Documented On 2 8:43AM ; [facility], [facility] Smoking status : Never smoker 10/04/2017 Last Documented On 2 8:43AM ; [facility], [facility] Procedures and Surgical History Includes: Procedures from this encounter Procedures Code Diagnosis Performing Provider Service L ocation Service Date use of tobacco assessment performed 1000F Last Documented On 2 8:43AM ; [facility] patient screened for future fall risk 3288F Last Documented On 2 8:43AM ; [facility], [facility] Surgical History Last Updated History of hysterectomy 10/04/2017 Last Documented On 2 8:43AM ; [facility], [facility] Medical History Includes: Medical History addressed during this encounter Description Last Updated Recent immunization for flu 11/01/2021 Last Documented On 2 8:43AM ; [facility], [facility] Recent immunization for pneumococcal pne umonia 11/01/2021 Last Documented On 2 8:43AM ; [facility], [facility] Arthritis 01/14/2021 Last Documented On 2 8:43AM ; [facility] Heartburn / Acid Reflux 01/14/2021 Last Documented On 2 8:43AM ; [facility] History of Cancer 01/14/2021 Last Documented On 2 8:43AM ; [facility] History of heart disease 01/14/2021 Last Documented On 2 8:43AM ; [facility], [facility] Hypertension 01/14/2021 Last Documented On 2 8:43AM ; [facility] Heart surgery 01/14/2021 Last Documented On 2 8:43AM ; [facility], [facility] Hysterectomy 01/14/2021 Last Documented On 2 8:43AM ; [facility] Past Surgical History: trigger finger SX 01/14/2021 Last Documented On 2 8:43AM ; [facility], [facility] Past medical history non-contributory ~h igh cholesterol ~heartburn 10/19/2017 Last Documented On 2 8:43AM ; [facility] A history of cancer 10/04/2017 Last Documented On 2 8:43AM ; [facility], [facility] Arthritic joint problems 10/04/2017 Last Documented On 2 8:43AM ; [facility] History of depression 10/04/2017 Last Documented On 2 8:43AM ; [facility] History of diabetes mellitus 10/04/2017 Last Documented On 2 8:43AM ; [facility] History of diverticulitis of colon 10/04 Last Documented On 2 8:43AM ; [facility] Intermittent hypertension 10/04/2017 Last Documented On 2 8:43AM ; [facility] Family History Includes: Family History addressed during this encounter Description Last Updated stroke/seizure: brother 10/04/2017 Last Documented On 2 8:43AM ; [facility], [facility] Family history of cancer father/sister 0 10/04/2017 Last Documented On 2 8:43AM ; [facility] Family history of heart disease mother 0 10/04/2017 Last Documented On 2 8:43AM ; [facility] Family history of hypertension mother/fa ther/sister/brother 10/04/2017 Last Documented On 2 8:43AM ; [facility] Family history of thromboembolic disease mother 10/04/2017 Last Documented On 2 8:43AM ; [facility] Review of Systems Includes: Review of [...] Active Last Documented On 2 9:32AM ; [facility] Encounters Encounter Provider Location Date Check-In Time Check-Out Time Diagnosis NEW PROBLEM/EST PT Juvenal Healy MD [facility] 09/24/19 22 8:35AM 9:32AM Insurance Includes: Active Insurance Policies Plan Name Member ID Group # Subscriber Relationship Effect girish Dates 1 - [employer] [id number] Nichole Morales Self 06/12/2017 - Unknown Clinical Notes Includes: Clinical Notes from this encounter No Clinical Notes Recorded
--- OUTSIDE RECORDS SUMMARY | 2025-04-21 14:42 | XMS_ITS | Encounter Summary ---
Author Organization Healthcare Address [address] [place] [address] Care Team Providers Care Dumper Operator Name Role Phone Nola Fay APRN Primary Care Provider [phone] Maribel Ambriz VOCATIONAL CASE MANAGER Primary Care Provider [phone] Encounter Details Date Type Department Care Team ([facility] Contact Info) Description 01/21/2022 Orders Only External Location [address] [place] [address] Sarah Oliver MD [address] [place] [address] Social History Tobacco Use Types Packs/Day Years [...] [facility] [place] [address] [address] [place] [address] 08/18/2025 11:00 AM EDT Office Visit [facility] [address] [facility] [place] [address] Corrina Ariza, VOCATIONAL CASE MANAGER [address] [facility] [address] [phone] 09/05/2025 8:20 AM EDT Office Visit [facility] [address] [place] [address] Sujata Cullen APRN [address] [address] documented as of this encounter [...] on filedocumented in this encounter Care Teams Dumper Operator Relationship Specialty Start Date End Date Nola Fay APRN [address] [place] [address] PCP - General 11/15/21 07/16/23 Maribel Ambriz APRN [address] [place] [address] PCP - General 07/17/23 documented as of this encounter
--- OUTSIDE RECORDS SUMMARY | 2025-04-21 14:42 | XMS_ITS | Encounter Summary ---
Author Organization Healthcare Address [address] [place] [address] Care Team Providers Care Rn Otolaryngology Name Role Phone Maxx Matos MD Primary Care Provider [phone] Nola Fay CHECK EMBOSSER Primary Care Provider [phone] Maribel Ambriz CHECK EMBOSSER Primary Care Provider [phone] Encounter Details Date Type Department Care Team (Late st Contact Info) Description 09/08/2011 Orders Only External Location [address] [place] [id number] Provider, External Social History Tobacco Use Types [...] Center [facility] [place] [address] [address] [facility] [address] [place] [address] 08/18/2025 11:00 AM EDT Office Visit [facility] [address] [facility], [address]nd [place] [address] Corrina Ariza, CHECK EMBOSSER [address] [facility] [address] [facility] [address] [place] [address] 09/05/2025 8:20 AM EDT Office Visit [facility] [address] [place] [phone] Sujata Cullen, CHECK EMBOSSER [address] [address] documented as of this encounter [...] on filedocumented in this encounter Care Teams Rn Otolaryngology Relationship Specialty Start Date End Date Maxx Matos MD [address] [place] [address] PCP - General 10/23/20 11/14/21 Nola Fay APRN [address] [place] [address] PCP - General 11/15/21 07/16/23 Maribel Ambriz APRN [address] [place] [address] PCP - General 07/17/23 documented as of this encounter
--- OUTSIDE RECORDS SUMMARY | 2025-04-21 14:42 | XMS_ITS | Encounter Summary ---
Author Organization Healthcare Address [address] [place] [address] Care Team Providers Care Chalk Extruding Machine Operator Name Role Phone Maxx Matos MD Primary Care Provider [phone] Nola Fay QUALITY CONTROL LAB TECHNICIAN Primary Care Provider [phone] Maribel Ambriz QUALITY CONTROL LAB TECHNICIAN Primary Care Provider [phone] Encounter Details Date Type Department Care Team (Late Contact Info) Description 09/24/2013 Orders Only External Location [address] [place] [address] Maxx Matos MD [address] [place] [address] Social History Tobacco Use Types Packs/Day Years [...] [facility] [place] [address] [address] [place] [address] 08/18/2025 11:00 AM EDT Office Visit [facility] [address] [facility] [place] [address] Corrina Ariza, QUALITY CONTROL LAB TECHNICIAN [address] [facility] [address] [address] 09/05/2025 8:20 AM EDT Office Visit [facility] [address] [place] [address] Sujata Cullen APRN [address] [address] documented as of this encounter [...] on filedocumented in this encounter Care Teams Chalk Extruding Machine Operator Relationship Specialty Start Date End Date Maxx Matos MD [address] [place] [address] PCP - General 10/23/20 11/14/21 Nola Fay APRN [address] [place] [address] PCP - General 11/15/21 07/16/23 Maribel Ambriz APRN [address] [place] [address] PCP - General 07/17/23 documented as of this encounter
--- OUTSIDE RECORDS SUMMARY | 2025-04-21 14:42 | XMS_ITS ---
Author Organization [facility] , [facility] Address [address] [place] [address] Phone Care Team Providers Care Agriculturist Name Role Phone CM DIALLO, СВЕТЛАНА Unavailable [phone] Sania DIALLO, Brayden Ariza Primary Care Provider [phone] Reason for Referral Date Encounter Description Provider [...] Active Last Documented On 6 9:03AM ; [facility] Plan of Treatment Instructions to [...] cessation Last Documented On 1 2:52PM ; [facility], [facility] No health seminar on smoking cessation Last Documented On 8 12:54PM ; [facility], [facility] No health seminar on smoking cessation Last Documented On 8 9:00AM ; [facility], [facility] No health seminar on smoking cessation Last Documented On 8 8:57AM ; [facility], [facility] No health seminar on smoking cessation Last Documented On 8 9:31AM ; [facility], [facility] No health seminar on smoking cessation Last Documented On 8 12:48PM ; [facility], [facility] No health seminar on smoking cessation Last Documented On 7 10:01AM ; [facility], [facility] No health seminar on smoking cessation Last Documented On 6 10:06AM ; [facility], [facility] No health seminar on smoking cessation Last Documented On 6 9:03AM ; [facility], [facility] Medical Equipment - Implanted Devices Includes: Current and historical Devices No Medical Equipment Recorded Medications Includes: Current and historical Medications Current Medications (continue as prescribed) Furosemide 20 MG Oral Tablet 01/12/2021 Provider: Diagnosis: Last Documented On 3:54PM By Mary Mims ; [facility], [facility] NovoLIN 70/30 ReliOn (70-30) 100 UNIT/ML Subcutaneous Suspension 01/08/2021 Provider: СВЕТЛАНА PABON MD Diagnosis: Last Documented On 1 3:54PM By Mary Mims ; [facility] Repatha SureClick 140 MG/ML Subcutaneous Solution Auto-injector 01/03/2021 Provider: Diagnosis: Last Documented On 3:54PM By Mary Mims ; [facility], [facility] tiZANidine HCl 4 MG Oral Tablet 12/23/2020 Provider: СВЕТЛАНА PABON MD Diagnosis: Last Documented On 1 3:54PM By Mary Mims ; [facility] ARIPiprazole 2 MG Oral Tablet 12/19/2020 Provider: СВЕТЛАНА PABON MD Diagnosis: Last Documented On 1 3:54PM By Mary Mims ; [facility], [facility] Ezetimibe 10 MG Oral Tablet 12/02/2020 Provider: СВЕТЛАНА PABON MD Diagnosis: Last Documented On 1 3:54PM By Mary Mims ; [facility], [facility] Carvedilol 25 MG Oral Tablet 12/02/2020 Provider: Diagnosis: Last Documented On 1 3:54PM By aMry Mims ; [facility], [facility] Escitalopram Oxalate 20 MG Oral Tablet 11/25/2020 Pr ovider: СВЕТЛАНА PABON MD Diagnosis: Last Documented On 1 3:54PM By Mary Mims ; [facility], [facility] Savella 50 MG Oral Tablet 11/22/2020 Provider: [facility] HERLINDA PABON MD Diagnosis: Last Documented On 1 3:54PM By Mary Mims ; [facility], [facility] Lansoprazole 30 MG Oral Capsule Delayed Release 2020 Provider: СВЕТЛАНА PABON MD Diagnosis: Last Documented On 1 3:54PM By Mary Mims ; [facility], [facility] Clopidogrel Bisulfate 75 MG Oral Tablet 10/29/2020 P antonioder: Diagnosis: Last Documented On 1 3:54PM By Mary Mims ; [facility], [facility] Midland 7.5-325 MG Tablet 05/16/2016 Provider: Oliver Lui MD Diagnosis: 1-2 po q6h prn pain Last Documented On 6 12:33PM By Santa Bedoya ; [facility] Past Medications on file Midland 5-325MG Oral Tablet 10/27/2017 - 11/26/2017 Prov ider: Juvenal Healy MD Diagnosis: 1-2 po q 4-6h prn for pain surgery 11/01/17 Last Documented On 8 2:12PM By Annalise Arias ; [facility], [facility] Midland 5-325MG Oral Tablet 09/15/2017 - 10/15/2017 Prov [...] On 2 12:46PM By Samaria Alonzo ; [facility], [facility] Medications Administered Includes: Administered Medications in patient's chart No Administered Medications Recorded Results Includes: Results from 04/21/2024 through 04/21/2025 No Results Recorded For Specified Dates History of Present Illness History of Present Illness not supported for this document type No History of Present Illness Recorded Social History Description Last Updated Not a current smoker. 01/14/2021 Last Documented On 1 3:41PM ; [facility], [facility] Recent change in diet 01/14/2021 Last Documented On 1 3:41PM ; [facility], [facility] Non-smoker 01/14/2021 Last Documented On 1 3:41PM ; [facility], [facility] Caffeine use 10/04/2017 Last Documented On 8 1:03PM ; [facility], [facility] Exercising regularly 10/04/2017 Last Documented On 8 1:03PM ; [facility], [facility] No tobacco use 10/04/2017 Last Documented On 8 1:03PM ; [facility], [facility] Not a current smoker 10/04/2017 Last Documented On 8 1:03PM ; [facility], [facility] Not using alcohol 10/04/2017 Last Documented On 8 1:03PM ; [facility], [facility] Not using drugs 10/04/2017 Last Documented On 8 1:03PM ; [facility], [facility] Smoking status : Never smoker 10/04/2017 Last Documented On 8 1:03PM ; [facility], [facility] Procedures and Surgical History Surgical History Last Updated History of hysterectomy 10/04/2017 Last Documented On 8 1:03PM ; [facility], [facility] Medical History Includes: Medical History in patient's chart Description Last Updated No recent immunization for flu 2 Last Documented On 2 9:56AM ; [facility], [facility] No recent immunization for pneumococcal pneumonia 11/01/2021 Last Documented On 2 9:56AM ; [facility] Arthritis 01/14/2021 Last Documented On 1 3:41PM ; [facility], [facility] Heartburn / Acid Reflux 01/14/2021 Last Documented On 1 3:41PM ; [facility], [facility] History of Cancer 01/14/2021 Last Documented On 1 3:41PM ; [facility], [facility] History of heart disease 01/14/2021 Last Documented On 1 3:41PM ; [facility], [facility] Hypertension 01/14/2021 Last Documented On 1 3:41PM ; [facility], [facility] Heart surgery 01/14/2021 Last Documented On 1 3:41PM ; [facility] Hysterectomy 01/14/2021 Last Documented On 1 3:41PM ; [facility], [facility] Past Surgical History: trigger finger SX 01/14/2021 Last Documented On 1 3:41PM ; [facility], [facility] Past medical history non-contributory ~h igh cholesterol ~heartburn 10/19/2017 Last Documented On 8 4:00PM ; [facility], [facility] A history of cancer 10/04/2017 Last Documented On 8 1:03PM ; [facility], [facility] Arthritic joint problems 10/04/2017 Last Documented On 8 1:03PM ; [facility], [facility] History of depression 10/04/2017 Last Documented On 8 1:03PM ; [facility], [facility] History of diabetes mellitus 10/04/2017 Last Documented On 8 1:03PM ; [facility], [facility] History of diverticulitis of colon 10/04 Last Documented On 8 1:03PM ; [facility], [facility] Intermittent hypertension 10/04/2017 Last Documented On 8 1:03PM ; [facility], [facility] Family History Includes: Family History in patient's chart Description Last Updated stroke/seizure: brother 10/04/2017 Last Documented On 8 1:03PM ; [facility], [facility] Family history of cancer father/sister 0 10/04/2017 Last Documented On 8 1:03PM ; [facility] Family history of heart disease mother 0 10/04/2017 Last Documented On 8 1:03PM ; [facility], [facility] Family history of hypertension mother/fa ther/sister/brother 10/04/2017 Last Documented On 8 1:03PM ; [facility] Family history of thromboembolic disease mother 10/04/2017 Last Documented On 8 1:03PM ; [facility] Review of Systems Review of Systems not [...] Active Last Documented On 2 9:32AM ; [facility] Insurance Includes: Active Insurance Policies Plan Name Member ID Group # Subscriber Relationship Effect girish Dates 1 - [employer] [id number] Nichole Morales Lakhwinder 06/12/2017 - Unknown Clinical Notes Includes: Signed Clinical Notes starting from 05/26/2022 No Clinical Notes Recorded
--- OUTSIDE RECORDS SUMMARY | 2025-04-21 14:42 | XMS_ITS ---
Care Plan - [facility] Created on: April 21, 2025 Nichole Morales : 1950 Sex: Female Author Organization [facility] Address [address] [place] [address] Phone Care Team Providers Care Hot Repairman Name Role Phone CM DIALLO, СВЕТЛАНА Unavailable [phone] Sania DIALLO, Brayden Ariza Primary Care Provider [phone]
--- OUTSIDE RECORDS SUMMARY | 2025-04-21 14:42 | XMS_ITS | Encounter Summary ---
Author Organization Healthcare Address [address] [place] [address] Care Team Providers Care It Support Specialist Name Role Phone Maxx Matos MD Primary Care Provider [phone] Nola Fay GUILLOTINE OPERATOR Primary Care Provider [phone] Maribel Ambriz GUILLOTINE OPERATOR Primary Care Provider [phone] Encounter Details Date Type Department Care Team (Late Contact Info) Description 11/08/2016 Orders Only External Location [address] [place] [address] Maxx Matos MD [address] [place] [address] Social History Tobacco Use Types Packs/Day Years [...] [facility] [place] [address] [address] [place] [address] 08/18/2025 11:00 AM EDT Office Visit [facility] [address] [facility], 2nd [place] [address] Corrina Ariza, GUILLOTINE OPERATOR [address] [facility] [address] [address] 09/05/2025 8:20 AM EDT Office Visit [facility] [address] [place] [address] Sujata Cullen APRN [address] [address] documented as of this encounter [...] on filedocumented in this encounter Care Teams It Support Specialist Relationship Specialty Start Date End Date Maxx Matos MD [address] [place] [address] PCP - General 10/23/20 11/14/21 Nola Fay APRN [address] [place] [address] PCP - General 11/15/21 07/16/23 Maribel Ambriz APRN [address] [facility] [place] [address] PCP - General 07/17/23 documented as of this encounter
--- OUTSIDE RECORDS SUMMARY | 2025-04-21 14:42 | XMS_ITS | Encounter Summary ---
Author Organization Healthcare Address [address] [place] [address] Care Team Providers Care Heating And Air Conditioning Mechanic Name Role Phone Maxx Matos MD Primary Care Provider [phone] Nola Fay COUNTY TAX ASSESSOR Primary Care Provider [phone] Maribel Ambriz COUNTY TAX ASSESSOR Primary Care Provider Encounter Details Date Type Department Care Team (Late Contact Info) Description 09/03/2012 Orders Only External Location [address] [place] [address] Maxx Matos MD [address] [place] [address] Social History Tobacco Use Types Packs/Day Years [...] [facility] [place] [address] [address] [place] [address] 08/18/2025 11:00 AM EDT [facility] [address] [facility] 2nd [place] [address] Corrina Ariza, COUNTY TAX ASSESSOR [address] [facility] Yes[address]le [address] [address] 09/05/2025 8:20 AM EDT Office Visit [facility] [address] [place] [address] Sujata Cullen APRN [address] [address] documented as of this encounter [...] on filedocumented in this encounter Care Teams Heating And Air Conditioning Mechanic Relationship Specialty Start Date End Date Maxx Matos MD [address] [place] [address] PCP - General 10/23/20 11/14/21 Nola Fay APRN [address] [place] [address] PCP - General 11/15/21 07/16/23 Maribel Ambriz APRN [address] [place] [address] PCP - General 07/17/23 documented as of this encounter
--- OUTSIDE RECORDS SUMMARY | 2025-04-21 14:42 | XMS_ITS | Encounter Summary ---
Author Organization Healthcare Address [address] [place] [address] Care Team Providers Care Tool Polisher Name Role Phone Nola Fay APRN Primary Care Provider [phone] Maribel Ambriz STRUCTURAL WELDER Primary Care Provider [phone] Encounter Details Date Type Department Care Team (Late st Contact Info) Description 01/05/2022 Orders Only External Location [address] [place] [address] Provider, External Social History Tobacco [...] [facility] [place] [address] [address] [facility] [address] [place] [address] 08/18/2025 11:00 AM EDT Office Visit [facility] [address] [facility], [address] [place] [address] Corrina Ariza, STRUCTURAL WELDER [address] [facility] [address] [place] [address] 09/05/2025 8:20 AM EDT Office Visit [facility] [address] [place] [address] Sujata Cullen, STRUCTURAL WELDER [address] [address] documented as of this encounter [...] on filedocumented in this encounter Care Teams Tool Polisher Relationship Specialty Start Date End Date Nola Fay, STRUCTURAL WELDER [address] [place] [address] PCP - General 11/15/21 07/16/23 Maribel Ambriz STRUCTURAL WELDER [address] [place] [address] PCP - General 07/17/23 documented as of this encounter
--- OUTSIDE RECORDS SUMMARY | 2025-04-21 14:42 | XMS_ITS | Encounter Summary ---
Author Organization Healthcare Address [address] [place] [address] Care Team Providers Care Dental Office Manager Name Role Phone Maxx Matos MD Primary Care Provider [phone] Nola Fay WARP PICKER Primary Care Provider [phone] Maribel Ambriz WARP PICKER Primary Care Provider [phone] Encounter Details Date Type Department Care Team (Late Contact Info) Description 09/09/2013 Orders Only External Location [address] [place] [address] Maxx Matos MD [address] [place] [address] Social History Tobacco Use Types Packs/Day Years [...] [facility] [place] [address] [address] [place] [address] 08/18/2025 11:00 AM EDT [facility] [address] [facility], 2nd [place] [address] Corrina Ariza, WARP PICKER [address] [facility] Yesenia Daigle [address] [address] 09/05/2025 8:20 AM EDT Office Visit [facility] [address] [place] [address] Sujata Cullen APRN [address] [address] documented as of this [...] on filedocumented in this encounter Care Teams Dental Office Manager Relationship Specialty Start Date End Date Maxx Matos MD [address] [place] [address] PCP - General 10/23/20 11/14/21 Nola Fay APRN [address] [place] [address] PCP - General 11/15/21 07/16/23 Maribel Ambriz APRN [address] [place] [address] PCP - General 07/17/23 documented as of this encounter
--- OUTSIDE RECORDS SUMMARY | 2025-04-21 14:42 | XMS_ITS | Encounter Summary ---
Author Organization Healthcare Address [address] [place] [address] Care Team Providers Care Burr Bench Hand Name Role Phone Maxx Matos MD Primary Care Provider [phone] Nola Fay ENGINEERING TECHNOLOGY INSTRUCTOR Primary Care Provider [phone] Maribel Ambriz ENGINEERING TECHNOLOGY INSTRUCTOR Primary Care Provider [phone] Encounter Details Date Type Department Care Team (Late st Contact Info) Description 10/08/2013 Orders Only External Location [address] [place] [address] Provider, External Social History Tobacco Use Types [...] [facility] [place] [address] [address] [facility] [address] [place] [address] 08/18/2025 11:00 AM EDT Office Visit [facility] [address] [facility], 2nd [place] [address] Corrina Ariza, ENGINEERING TECHNOLOGY INSTRUCTOR [address] [facility] [address] [facility] [address] [place] [address] 09/05/2025 8:20 AM EDT Office Visit [facility] [address] [place] [address] Sujata Cullen, ENGINEERING TECHNOLOGY INSTRUCTOR [address] [address] documented as of this encounter [...] on filedocumented in this encounter Care Teams Burr Bench Hand Relationship Specialty Start Date End Date Maxx Matos MD [address] [place] [address] PCP - General 10/23/20 11/14/21 Nola Fay APRN [address] [place] [address] PCP - General 11/15/21 07/16/23 Mraibel Ambriz APRN [address] [place] [address] PCP - General 07/17/23 documented as of this encounter
--- OUTSIDE RECORDS SUMMARY | 2025-04-21 14:43 | XMS_ITS | Clinical Summary ---
Author Organization [facility] Address [address] [place] [address] Phone Care Team Providers Care Needlemaker Name Role Phone CM DIALLO, СВЕТЛАНА Unavailable [phone] Sania DIALLO, Brayden Ariza Primary Care Provider [phone] Reason for Visit and Chief Complaint Epidural Steroid Injection Problems Includes: Problems addressed during this encounter and other active Problems All Visits Onset Date Resolved Date Provider Condition S tatus Neck Pain 09/23/2021 Juvenal Healy MD Active Last Documented On 2 8:43AM ; [facility], [facility] Lower Back Pain 01/14/2021 Juvenal Healy MD Act girish Last Documented On 1 9:59AM ; [facility], [facility] Bone Pain in the Left Hand 04/15/2016 Brayden Lui MD Active Last Documented On 6 9:03AM ; [facility], [facility] Plan of Treatment No Plan of Treatment Recorded Assessments Includes: Assessments from this encounter No Assessments Recorded Medical Equipment - Implanted Devices Includes: Current Devices No Medical Equipment Recorded Medications Includes: Medications discussed during this encounter and other current Medications Current Medications (continue as prescribed) Furosemide 20 MG Oral Tablet 01/12/2021 Provider: Diagnosis: Last Documented On 1 3:54PM By Mary Mims ; [facility], [facility] NovoLIN 70/30 ReliOn (70-30) 100 UNIT/ML Subcutaneous Suspension 01/08/2021 Provider: СВЕТЛАНА PABON MD Diagnosis: Last Documented On 1 3:54PM By Mary Mims ; [facility], [facility] Repatha SureClick 140 MG/ML Subcutaneous Solution Auto-injector 01/03/2021 Provider: Diagnosis: Last Documented On 3:54PM By Mary Mims ; [facility], [facility] tiZANidine HCl 4 MG Oral Tablet 12/23/2020 Provider: СВЕТЛАНА PABON MD Diagnosis: Last Documented On 3:54PM By Mary Mims ; [facility], [facility] ARIPiprazole 2 MG Oral Tablet 12/19/2020 Provider: СВЕТЛАНА PABON MD Diagnosis: Last Documented On 3:54PM By Mary Mims ; [facility], [facility] Ezetimibe 10 MG Oral Tablet 12/02/2020 Provider: СВЕТЛАНА PABON MD Diagnosis: Last Documented On 3:54PM By Mary Mims ; [facility], [facility] Carvedilol 25 MG Oral Tablet 12/02/2020 Provider: Diagnosis: Last Documented On 3:54PM By Mary Mims ; [facility], [facility] Escitalopram Oxalate 20 MG Oral Tablet 11/25/2020 Pr ovider: СВЕТЛАНА PABON MD Diagnosis: Last Documented On 3:54PM By Mary Mims ; [facility], [facility] Savella 50 MG Oral Tablet 11/22/2020 Provider: ST HERLINDA PABON MD Diagnosis: Last Documented On 3:54PM By Mary Mims ; [facility], [facility] Lansoprazole 30 MG Oral Capsule Delayed Release 2020 Provider: СВЕТЛАНА PABON MD Diagnosis: Last Documented On 1 3:54PM By Mary Mims ; [facility], [facility] Clopidogrel Bisulfate 75 MG Oral Tablet 10/29/2020 P rovider: Diagnosis: Last Documented On 3:54PM By Mary Mims ; [facility], [facility] Su[place] 7.5-325 MG Tablet 05/16/2016 Provider: Oliver Lui MD Diagnosis: 1-2 po q6h prn pain Last Documented On 6 12:33PM By Santa Bedoya ; [facility] Medications Administered Includes: Administered Medications [...] Diagnosis Epidural Steroid Injection Juvenal Healy MD [facility] 10/07/19 22 11:12AM 11:29AM Insurance Includes: Active Insurance Policies Plan Name Member ID Group # Subscriber Relationship Effect girish Dates 1 - [employer] [id number] Nichole Morales Self 06/12/2017 - Unknown Clinical Notes Includes: Clinical Notes from this encounter No Clinical Notes Recorded
--- OUTSIDE RECORDS SUMMARY | 2025-04-21 14:43 | XMS_ITS | Encounter Summary ---
Author Organization Healthcare Address [address] [place] [address] Care Team Providers Care Auto Hiker Name Role Phone Maxx Matos MD Primary Care Provider [phone] Nola Fay CHECKER AND PACKER Primary Care Provider [phone] Maribel Ambriz CHECKER AND PACKER Primary Care Provider [phone] Encounter Details Date Type Department Care Team (Late Contact Info) Description 10/28/2014 Orders Only External Location 800 [place] [id number] Provider, External Social History Tobacco Use Types [...] [facility] [place] [address] Yesenia Daigle [facility] 800 [place] [address] 08/18/2025 11:00 AM EDT Office Visit [facility] [address] [facility], 2nd [place] [address] Corrina Ariza, CHECKER AND PACKER [address] [facility] [address] [place] [address] 09/05/2025 8:20 AM EDT [facility] [address] [place] [address] Sujata Cullen, CHECKER AND PACKER [address] [address] documented as of this encounter [...] on filedocumented in this encounter Care Teams Auto Hiker Relationship Specialty Start Date End Date Maxx Matos MD [address] [place] [address] PCP - General 10/23/20 11/14/21 Nola Fay APRN [address] [place] [address] PCP - General 11/15/21 07/16/23 Maribel Ambriz APRN [address] [place] [address] PCP - General 07/17/23 documented as of this encounter
--- OUTSIDE RECORDS SUMMARY | 2025-04-21 14:43 | XMS_ITS | Encounter Summary ---
Author Organization Healthcare Address [address] [place] [address] Care Team Providers Care Adult Manager Name Role Phone Maxx Matos MD Primary Care Provider [phone] Nola Fay MUSEUM GUIDE Primary Care Provider [phone] Maribel Ambriz MUSEUM GUIDE Primary Care Provider [phone] Encounter Details Date Type Department Care Team (Late st Contact Info) Description 10/08/2013 Orders Only External Location 800 [place] [id number] Provider, External Social History Tobacco Use Types [...] Center [facility] [place] [address] Yesenia Daigle [facility] 800 [place] [address] 08/18/2025 11:00 AM EDT Office Visit [facility] Breast [facility] Center [address] [facility], 2nd [place] [address] Corrina Ariza, MUSEUM GUIDE 800 [facility] Yesenia Daigle [facility] [address] [place] [address] 09/05/2025 8:20 AM EDT Office Visit [facility] [address] [place] [address] Sujata Cullen, MUSEUM GUIDE [address] [address] documented as of this encounter [...] on filedocumented in this encounter Care Teams Adult Manager Relationship Specialty Start Date End Date Maxx Matos MD [address] [place] [address] PCP - General 10/23/20 11/14/21 Nola Fay APRN [address] [place] [address] PCP - General 11/15/21 07/16/23 Maribel Ambriz APRN [address] [place] [address] PCP - General 07/17/23 documented as of this encounter
--- OUTSIDE RECORDS SUMMARY | 2025-04-21 14:43 | XMS_ITS | Encounter Summary ---
Author Organization Healthcare Address [address] [place] [address] Care Team Providers Care Webbing Tacker Name Role Phone Maxx Matos MD Primary Care Provider [phone] Noal Fay MIXER DIAMOND POWDER Primary Care Provider [phone] Maribel Ambriz MIXER DIAMOND POWDER Primary Care Provider [phone] Encounter Details Date Type Department Care Team (Late st Contact Info) Description 11/25/2019 Orders Only External Location 800 [place] [id number] Provider, External Social History Tobacco Use Types [...] Breast Care Center [facility] [place] [address] Yesenia Daigle [facility] 800 [place] [address] 08/18/2025 11:00 AM EDT Office Visit [facility] Breast Care Center [address] [facility], 2nd [place] [address] Corrina Ariza, MIXER DIAMOND POWDER 800 [facility] Ajit [address] [place] [address] 09/05/2025 8:20 AM EDT Office Visit [facility] [address] [place] [address] Sujata Cullen, MIXER DIAMOND POWDER [address] [address] documented as of this encounter [...] on filedocumented in this encounter Care Teams Webbing Tacker Relationship Specialty Start Date End Date Maxx Matos MD [address] [place] [address] PCP - General 10/23/20 11/14/21 Nola Fay APRN [address] [place] [address] PCP - General 11/15/21 07/16/23 Maribel Ambriz APRN [address] [place] [address] PCP - General 07/17/23 documented as of this encounter
--- OUTSIDE RECORDS SUMMARY | 2025-04-21 14:43 | XMS_ITS | Encounter Summary ---
Author Organization Healthcare Address [address] [place] [address] Care Team Providers Care Melter Clerk Name Role Phone Nola Fay APRN Primary Care Provider [phone] Maribel Ambriz MANAGER PHILOSOPHY Primary Care Provider [phone] Encounter Details Date Type Department Care Team (Late st Contact Info) Description 12/21/2021 Orders Only External Location 800 [place] [address] Provider, External Social History Tobacco [...] Breast Care [facility] [place] [address] Yesenia Daigle [facility] 800 [place] [address] 08/18/2025 11:00 AM EDT Office Visit [facility] Breast [facility] Center [address] [facility], 2nd [place] [address] Corrina Ariza, MANAGER PHILOSOPHY 800 [facility] Ajit [address] [place] [address] 09/05/2025 8:20 AM EDT Office Visit [facility] [address] [place] [address] Sujata Cullen, MANAGER PHILOSOPHY [address] [address] documented as of this encounter [...] on filedocumented in this encounter Care Teams Melter Clerk Relationship Specialty Start Date End Date Nola Fay, MANAGER PHILOSOPHY [address] [place] [address] PCP - General 11/15/21 07/16/23 Maribel Ambriz MANAGER PHILOSOPHY [address] [place] [address] PCP - General 07/17/23 documented as of this encounter
--- OUTSIDE RECORDS SUMMARY | 2025-04-21 14:43 | XMS_ITS | Encounter Summary ---
Author Organization Healthcare Address [address] [place] [address] Care Team Providers Care Rotary Swaging Machine Operator Name Role Phone Maxx Matos MD Primary Care Provider [phone] Nola Fay BRIQUETTE OPERATOR Primary Care Provider [phone] Maribel Ambriz BRIQUETTE OPERATOR Primary Care Provider [phone] Encounter Details Date Type Department Care Team (Late Contact Info) Description 12/13/2019 Orders Only External Location 800 [place] [address] Sarah Oliver MD [address] [place] [address] Social History Tobacco Use Types Packs/Day Years [...] Breast Care Center [facility] [place] [address] Yesenia Daigle [facility] 800 [place] [address] 08/18/2025 11:00 AM EDT Office Visit [facility] [address] [facility], 2nd [place] [address] Corrina Ariza, BRIQUETTE OPERATOR 800 [facility] Yesenia Daigle [address] [address] 09/05/2025 8:20 AM EDT Office Visit [facility] [address] [place] [address] Sujata Cullen, OLLIE [address] [address] documented as of this encounter [...] on filedocumented in this encounter Care Teams Rotary Swaging Machine Operator Relationship Specialty Start Date End Date Maxx Matos MD [address] [place] [address] PCP - General 10/23/20 11/14/21 Nola Fay APRN [address] [place] [address] PCP - General 11/15/21 07/16/23 Maribel Ambriz APRN [address] [place] [facility] [address] PCP - General 07/17/23 documented as of this encounter
--- OUTSIDE RECORDS SUMMARY | 2025-04-21 14:43 | XMS_ITS | Encounter Summary ---
Author Organization Healthcare Address [address] [place] [address] Care Team Providers Care Wine Specialist Name Role Phone Maxx Matos MD Primary Care Provider [phone] Nola Fay AIR SAMPLER Primary Care Provider [phone] Maribel Ambriz AIR SAMPLER Primary Care Provider [phone] Encounter Details Date Type Department Care Team (Late Contact Info) Description 10/28/2015 Orders Only External Location 800 [place] [address] Provider, External Social History Tobacco Use Types [...] Breast Care Center [facility] [place] [address] Yesenia Daigle [facility] 800 [place] [address] 08/18/2025 11:00 AM EDT Office Visit [facility] Breast Care Center [address] [facility], 2nd [place] [address] Corrina Ariza, AIR SAMPLER 800 [facility] [address] [place] [address] 09/05/2025 8:20 AM EDT Office Visit [facility] [address] [place] [address] Sujata Cullen, AIR SAMPLER [address] [address] documented as of this encounter [...] on filedocumented in this encounter Care Teams Wine Specialist Relationship Specialty Start Date End Date Maxx Matos MD [address] [place] [address] PCP - General 10/23/20 11/14/21 Nola Fay APRN [address] [place] [address] PCP - General 11/15/21 07/16/23 Maribel Ambriz APRN [address] [place] [address] PCP - General 07/17/23 documented as of this encounter
--- OUTSIDE RECORDS SUMMARY | 2025-04-21 14:43 | XMS_ITS | Encounter Summary ---
Author Organization Healthcare Address [address] [place] [address] Care Team Providers Care Tier And Detonator Name Role Phone Maxx Matos MD Primary Care Provider [phone] Nola Fay DEVOPS ENGINEER Primary Care Provider [phone] Maribel Ambriz DEVOPS ENGINEER Primary Care Provider [phone] Encounter Details Date Type Department Care Team (Late Contact Info) Description 12/01/2020 Orders Only External Location 800 [place] [address] Sarah Oliver MD [address] [place] [address] Social History Tobacco Use Types Packs/Day Years [...] Breast Care Center [facility] [place] [address] Yesenia Swainson [facility] 800 [place] [address] 08/18/2025 11:00 AM EDT Office Visit [facility] 7[address] [facility], 2nd [place] [address] Corrina Ariza, DEVOPS ENGINEER [address] Yesenia Daigle [facility] [address] [place] [address] 09/05/2025 8:20 AM EDT Office Visit [facility] [address] [place] [address] Sujata Cullen, DEVOPS ENGINEER [address] [facility] [address] [place] [address] documented as of this encounter [...] on filedocumented in this encounter Care Teams Tier And Detonator Relationship Specialty Start Date End Date Maxx Matos MD [address] [place] [address] PCP - General 10/23/20 11/14/21 Nola Fay APRN [address] [place] [address] PCP - General 11/15/21 07/16/23 Maribel Ambriz APRN [address] [place] [address] PCP - General 07/17/23 documented as of this encounter
--- OUTSIDE RECORDS SUMMARY | 2025-04-21 14:43 | XMS_ITS | Encounter Summary ---
Author Organization Healthcare Address [address] [place] [address] Care Team Providers Care Spanish Literature Professor Name Role Phone Maxx Matos MD Primary Care Provider [phone] Nola Fay EMISSIONS TESTING AND REPAIR TECHNICIAN Primary Care Provider [phone] Maribel Ambriz EMISSIONS TESTING AND REPAIR TECHNICIAN Primary Care Provider [phone] Encounter Details Date Type Department Care Team (Late Contact Info) Description 12/13/2019 Orders Only External Location 800 [place] [address] Sarah Oliver MD [address] [place] [address] Social History Tobacco Use Types Packs/Day Years [...] Breast Care Center [facility] [place] [address] Yesenia Daigle [facility] 800 [place] [address] 08/18/2025 11:00 AM EDT Office Visit [facility] 7[address] [facility], 2nd [place] [address] Corrina Ariza, EMISSIONS TESTING AND REPAIR TECHNICIAN 800 [facility] Yesenia Daigle [address] [address] 09/05/2025 8:20 AM EDT Office Visit [facility] [address] [place] [address] Sujata Cullen, EMISSIONS TESTING AND REPAIR TECHNICIAN [address] [address] documented as of this [...] on filedocumented in this encounter Care Teams Spanish Literature Professor Relationship Specialty Start Date End Date Maxx Matos MD [address] [place] [address] PCP - General 10/23/20 11/14/21 Nola Fay EMISSIONS TESTING AND REPAIR TECHNICIAN [address] [place] [address] PCP - General 11/15/21 07/16/23 Maribel Ambriz EMISSIONS TESTING AND REPAIR TECHNICIAN [address] [facility] [place] [address] PCP - General 07/17/23 documented as of this encounter
--- OUTSIDE RECORDS SUMMARY | 2025-04-21 14:43 | XMS_ITS | Encounter Summary ---
Author Organization Healthcare Address [address] [place] [address] Care Team Providers Care Piece Work Inspector Name Role Phone Maxx Matos MD Primary Care Provider [phone] Nola Fay PLY CUTTER Primary Care Provider [phone] Maribel Ambriz PLY CUTTER Primary Care Provider [phone] Encounter Details Date Type Department Care Team (Late st Contact Info) Description 10/08/2013 Orders Only External Location 800 [place] [address] Provider, External Social History Tobacco Use Types [...] Breast Care Center [facility] [place] [address] Yesenia Daigle [facility] 800 [place] [address] 08/18/2025 11:00 AM EDT Office Visit [facility] Breast Care Center [address] [facility], 2nd [place] [address] Corrina Ariza, PLY CUTTER 800 [facility] Yesenia Daigle [facility] [address] [place] [address] 09/05/2025 8:20 AM EDT Office Visit [facility] [address] [place] [address] Sujata Cullen, PLY CUTTER [address] [address] documented as of this [...] on filedocumented in this encounter Care Teams Piece Work Inspector Relationship Specialty Start Date End Date Maxx Matos MD [address] [place] [address] PCP - General 10/23/20 11/14/21 Nola Fay APRN [address] [place] [address] PCP - General 11/15/21 07/16/23 Maribel Ambriz APRN [address] [place] [address] PCP - General 07/17/23 documented as of this encounter
--- OUTSIDE RECORDS SUMMARY | 2025-04-21 14:43 | XMS_ITS | Encounter Summary ---
Author Organization Healthcare Address [address] [place] [address] Care Team Providers Care Maxillofacial Pathology Name Role Phone Maxx Matos MD Primary Care Provider [phone] Nola Fay WIRELESS CONSULTANT Primary Care Provider [phone] Maribel Ambriz WIRELESS CONSULTANT Primary Care Provider [phone] Encounter Details Date Type Department Care Team (Late Contact Info) Description 10/13/2015 Orders Only External Location 800 [place] [address] Provider, External Social History Tobacco Use Types [...] Center [facility] [place] [address] Yesenia Daigle [facility] 800 [place] [address] 08/18/2025 11:00 AM EDT Office Visit [facility] Breast Care Center [address] [facility], 2nd [place] [address] Corrina Ariza, WIRELESS CONSULTANT 800 [facility] [address] [place] [address] 09/05/2025 8:20 AM EDT Office Visit [facility] [address] [place] [address] Sujata Cullen, WIRELESS CONSULTANT [address] [address] documented as of this encounter [...] on filedocumented in this encounter Care Teams Maxillofacial Pathology Relationship Specialty Start Date End Date Maxx Matos MD [address] [place] [address] PCP - General 10/23/20 11/14/21 Nola Fay APRN [address] [place] [address] PCP - General 11/15/21 07/16/23 Maribel Ambriz APRN [address] [place] [address] PCP - General 07/17/23 documented as of this encounter
--- OUTSIDE RECORDS SUMMARY | 2025-04-21 14:43 | XMS_ITS | Encounter Summary ---
Author Organization Healthcare Address [address] [place] [address] Care Team Providers Care Floor Coverings Installer Name Role Phone Maxx Matos MD Primary Care Provider [phone] Nola Fay CRITICAL SYSTEMS TECHNICIAN Primary Care Provider [phone] Maribel Ambriz CRITICAL SYSTEMS TECHNICIAN Primary Care Provider [phone] Encounter Details Date Type Department Care Team (Late Contact Info) Description 06/18/2020 Orders Only External Location 800 [place] [address] Sarah Oliver MD [address] [place] [address] Social History Tobacco Use Types Packs/Day Years [...] Breast Care Center [facility] [place] [address] Yesenia Daigle [facility] 800 [place] [address] 08/18/2025 11:00 AM EDT Office Visit [facility] [address] [facility], 2nd [place] [address] Corrina Ariza, CRITICAL SYSTEMS TECHNICIAN 800 [facility] Yesenia Daigle [address] [address] 09/05/2025 8:20 AM EDT Office Visit [facility] [address] [place] [address] Sujata Cullen, OLLIE [address] [address] documented as of this [...] on filedocumented in this encounter Care Teams Floor Coverings Installer Relationship Specialty Start Date End Date Maxx Matos MD [address] [place] [address] PCP - General 10/23/20 11/14/21 Nola Fay APRN [address] [place] [address] PCP - General 11/15/21 07/16/23 Maribel Ambriz APRN [address] [place] [address] PCP - General 07/17/23 documented as of this encounter
== END 2025-04-21 23:59 | disposition home or self-care (01) ==
LOC: RAD 14:40
PROVIDERS: PCP Nurse Practitioner Family; Visit Provider Podiatrist
DX: M79.675 Pain in left toe(s) (principal); L03.116 Cellulitis of left lower limb; R93.6 Abnormal findings on diagnostic imaging of limbs
CPT/HCPCS: 73630

== ENCOUNTER 2025-05-06 10:00 | Outpatient (RCR) | payer MEDICARE, SELFPAY ==
--- NOTE | 2025-05-06 10:58 | [facility].RHREAS ---
Rehab Reassessment Rehab OP Re-assessment Start: 04/15/25 12:59 Freq: Status: Active Protocol: Document 05/06/25 10:05 TYLER (Rec: 05/06/25 10:58 TYLER [id number]) E-signed By Reyna Leal, OT QuickDASH Activities Please rate your ability to do the following activities in the last week by selecting the number below the appropriate response. 1. Open a tight or Severe difficulty new jar. 2. Do heavy Moderate difficulty social work supervisor (e. g., wash harmon, floors). 3. Carry a shopping Mild difficulty bag or briefcase. 4. Wash your back. Mild difficulty 5. Use a knife to No difficulty cut food. 6. Recreational Moderate difficulty activities in which you take some force or impact through your arm, shoulder, or hand (e.g., golf, hammering, tennis, etc.). 7. During the past Not at all week, to what extent has your arm, shoulder or hand problem interfered with your normal social activities with family, friends , neighbors or groups? 8. During the past Moderately limited week, were you limited in your work or other regular daily activites as a result of your arm, shoulder or hand problem? 9. Arm, shoulder or Moderate hand pain. 10. Tingling (pins Extreme and needles) in your arm, shoulder or hand. 11. During the past Mild difficulty week, how much difficulty have you had sleeping because of the pain in your arm, shoulder or hand? Quick DASH 29 Rehab Re-assessment Subjective Subjective I do not have as much pain in the shoulder as before. Objective Objective Notes Pt is a 74 yr old female who is being seen for OP OT skilled services and interventions in order to address functional limitations in occupational performance to L shoulder. Each session, pt is engaged in therapeutic exercise, therapeutic modalities, and thermal modalities in order to address these deficits and improve functional occupational performance to reach PLOF needed for ADLs and IADLs completion. Assessment Progress Assessment Progressing as Expected Assessment Notes Measurements as of 05/06/25 L shoulder flexion: 140 L shoulder Abd: 170 L shoulder ER: 70 L shoulder IR: 70 pain at worst: 4/10 QuickDash Activities: 29 Pt is progressing well in therapy towards goals. Each session, pt has demo improved toleration for exercises and endurance. Pt is consistent with attending sessions and is always pleasant and eager to engage in sessions . Pt has demo good carryover at home and understanding of HEP initially given at [facility]. Pt reported decreased pain levels and reported that they think the pain in biceps are from pulling self into truck. See below for progress of goals. OT Patient Goals OT Short Term 1. Pt will increase left shoulder flexion to 130 Patient Goals degrees in order to complete daily overhead tasks independently ~50% of the time.: MET 2. Pt will increase L shoulder abduction to 145 degrees to complete upper body dressing independently ~50% of the time.: MET 3. Pt will increase L shoulder ER/IR to 80 degrees (ER) and 75 degrees (IR) in order to complete lower body dressing (putting on and taking off belt) independently ~50% of the time. : MET IR , ER is at 70 4. Pt will increase strength to 3+/5 throughout left shoulder in order to complete heavier household tasks ( laundry, mopping, vacuuming) independently ~50% of the time.: MET 5. Pt will verbalize decreased pain levels at worst in L shoulder to a 5/10 in order to complete daily ADLs independently ~50% of the time.: MET 6. Pt will demonstrate improved endurance by completing left shoulder exercises for ~20 minutes prior to rest break in order to increase tolerance for daily work activities. 7. Pt will demonstrate independence with HEP of AAROM exercises to increase overall functional use of left shoulder in daily activities ~75% of the time.: MET 8. Pt will demonstrate improved QuickDash Activities score with 30 or below to demo improve functional occupational performance 75% of time.: MET OT Medical Research Scientist Patient 1. Pt will increase left shoulder flexion to 145 Goals degrees in order to complete daily overhead tasks independently ~50% of the time. 2. Pt will increase L shoulder abduction to 155 degrees to complete upper body dressing independently ~50% of the time.: MET 3. Pt will increase L shoulder ER/IR to 85 degrees (ER) and 80 degrees (IR) in order to complete lower body dressing (putting on and taking off belt) independently ~50% of the time. 4. Pt will increase strength to 4-/5 throughout left shoulder in order to complete heavier household tasks ( laundry, mopping, vacuuming) independently ~50% of the time. 5. Pt will verbalize decreased pain levels at worst in L shoulder to a 4/10 in order to complete daily ADLs independently ~50% of the time.: MET 6. Pt will demonstrate improved endurance by completing left shoulder exercises for ~25 minutes prior to rest break in order to increase tolerance for daily work activities. 7. Pt will demonstrate independence with HEP of advanced strengthening exercises to increase overall functional use of left shoulder in daily activities ~75 % of the time. 8. Pt will demonstrate improved QuickDash Activities score with 28 or below to demo improve functional occupational performance 75% of time. Plan Plan Continue OT POC at this time Each session, pt will engage in therapeutic exercises, thermal modalities, and therapeutic modalities in order to address functional limitations in occupational performance and improve optimal occupational performance needed for ADLs and IADLs. Frequency of Therapy 1x/wk Duration of Therapy 6 more wks Therapeutic Exercise Yes Including Home Exercise Program Manual Therapy Yes Techniques Neuromuscular Re- Yes education Therapeutic Yes Activities to Return to Previous Functional/Work Level ADL/Self Care Yes Education Thermal Modalities Yes Electrical Yes Stimulation Ultrasound/ Yes Phonophoresis Iontophoresis Yes Parrafin Yes Orthotics/Bracing/ Yes Splinting Group Therapy for Yes Medicare Eval/Re-Eval Yes Time and Billing Charge for OT No reassessment? PHYSICIAN CERTIFICATION: I certify the specified therapy services for Nichole Morales are required, authorized, and reviewed every 30 days.
== END 2025-05-06 23:59 | disposition home or self-care (01) ==
LOC: OT 10:00
PROVIDERS: PCP Nurse Practitioner Family; Visit Provider Physician Assistant
DX: M25.512 Pain in left shoulder (principal)
CPT/HCPCS: 97032; 97035; 97110; 97140

== ENCOUNTER 2025-05-13 09:52 | Outpatient (RCR) | payer MEDICARE, SELFPAY | END 2025-05-13 23:59 | disposition home or self-care (01) | LOC: OT 09:52 | PROVIDERS: PCP Nurse Practitioner Family; Visit Provider Physician Assistant | DX: M25.512 Pain in left shoulder (principal) | CPT/HCPCS: 97014; 97035; 97110; G0283 ==